=== PATIENT | female | born 1935 | race Caucasian/White ===

== ENCOUNTER 2017-07-08 15:32 | Inpatient (IN) | payer OTHER, MEDICARE ==
[2017-07-08] MEDS ORDERED: PHARMACY CONSULT - VANCOMYCIN XX SCH (16:00)
[2017-07-08] MEDS ORDERED: VANCOMYCIN 1 GM PREMIX (ADDVANTAGE) 250 ML IV NR (17:00)
[2017-07-08 17:27] LABS: BASOPHILS # (AUTO) 0.2 X10^3/uL (0.0-0.1); BASOPHILS % (AUTO) 1.2 % (0.2-1.0); EOSINOPHILS # (AUTO) 0.6 x10^3/uL (0.0-0.2); EOSINOPHILS % (AUTO) 4.7 % (0.9-2.9); HEMATOCRIT 33.7 % (36.0-47.0); HEMOGLOBIN 11.1 g/dL (12.0-16.0); LYMPHOCYTES # (AUTO) 1.5 X10^3/uL (1.3-2.9); LYMPHOCYTES % (AUTO) 11.7 % (21.0-51.0); MEAN CORPUSCULAR HEMOGLOBIN 29.8 pg (27.0-34.0); MEAN CORPUSCULAR HGB CONC 32.8 g/dL (33.0-35.0); MEAN CORPUSCULAR VOLUME 90.7 fL (80.0-100.0); MEAN PLATELET VOLUME 7.3 fL (7.4-11.0); MONOCYTES % (AUTO) 7.4 % (0.0-13.0); NEUTROPHILS # (AUTO) 9.8 x10^3/uL (2.2-4.8); PLATELET COUNT 351 X10^3/uL (150.0-450.0); RED BLOOD COUNT 3.71 X10^6/uL (3.5-5.4); RED CELL DISTRIBUTION WIDTH 14.4 % (11.6-16.5); WHITE BLOOD COUNT 13.1 X10^3/uL (3.6-10.0)
--- NOTE | 2017-07-08 17:34 | RAD ---
CHEST RADIOGRAPHS PA AND LATERAL VIEWS CLINICAL HISTORY: 82-year-old female with diabetic ulcer to the left foot. COMPARISON: Chest radiograph 01/31/2016. FINDINGS: The cardiopericardial silhouette is stably enlarged. There is no focal consolidation, pleu ral effusion or pneumothorax. The lungs are well inflated. Pulmonary vascularity is normal. Imaged os seous structures are intact. Soft tissues are unremarkable. IMPRESSION: No acute cardiopulmonary process. Reported By:
[2017-07-08 17:41] LABS: ALANINE AMINOTRANSFERASE 17 Units/L (12-78); ALKALINE PHOSPHATASE 107 Units/L (46-116); ASPARTATE AMINO TRANSFERASE 20 Units/L (15-37); BLOOD UREA NITROGEN 31 mg/dL (7-18); CALCIUM 8.8 mg/dL (8.5-10.1); CARBON DIOXIDE 29.1 mmol/L (21-32); CHLORIDE 104 mmol/L (98-107); COR CA(FOR HYPOALB) 9.6 mg/dL (8.5-10.1); SODIUM 140 mmol/L (136-145); TOTAL PROTEIN 7.1 g/dL (6.4-8.2); eGFR BLACK RACES 37 (>60); eGFR NON BLACK RACES 31 (>60)
[2017-07-08] MEDS ORDERED: NS 1/2 1000 ML IV 1,000 ML IV ONE (18:02)
[2017-07-08 18:04] VITALS: BMI 25.6
[2017-07-08] MEDS: NS 1/2 1000 ML IV 1,000 ML IV SCH (18:50)
[2017-07-08 18:59] LABS: ERYTHROCYTE SEDIMENTATION RATE 96 MM/HOUR (0-20)
[2017-07-08] MEDS: NORCO 5/325 MG TAB PO PRN (21:33)
[2017-07-08] MEDS: NYSTATIN POWDER TOP SCH ×2 (22:13→22:16)
[2017-07-08] MEDS ORDERED: NORCO 5/325 MG TAB PO ONE (23:34)
[2017-07-09] MEDS: NORCO 5/325 MG TAB PO PRN (05:10)
[2017-07-09 05:51] LABS: BASOPHILS # (AUTO) 0.1 X10^3/uL (0.0-0.1); BASOPHILS % (AUTO) 0.8 % (0.2-1.0); EOSINOPHILS # (AUTO) 0.5 x10^3/uL (0.0-0.2); EOSINOPHILS % (AUTO) 5.1 % (0.9-2.9); HEMATOCRIT 30.3 % (36.0-47.0); HEMOGLOBIN 10.3 g/dL (12.0-16.0); LYMPHOCYTES # (AUTO) 0.8 X10^3/uL (1.3-2.9); LYMPHOCYTES % (AUTO) 8.6 % (21.0-51.0); MEAN CORPUSCULAR HEMOGLOBIN 30.9 pg (27.0-34.0); MEAN CORPUSCULAR HGB CONC 33.9 g/dL (33.0-35.0); MEAN CORPUSCULAR VOLUME 91.1 fL (80.0-100.0); MEAN PLATELET VOLUME 7.7 fL (7.4-11.0); MONOCYTES # (AUTO) 0.7 x10^3/uL (0.3-0.8); NEUTROPHILS # (AUTO) 7.5 x10^3/uL (2.2-4.8); NEUTROPHILS % (AUTO) 78.5 % (42.0-75.0); PLATELET COUNT 295 X10^3/uL (150.0-450.0); RED BLOOD COUNT 3.32 X10^6/uL (3.5-5.4); RED CELL DISTRIBUTION WIDTH 14.5 % (11.6-16.5); WHITE BLOOD COUNT 9.5 X10^3/uL (3.6-10.0)
[2017-07-09 06:13] LABS: ALBUMIN 2.6 g/dL (3.4-5.0); CALCIUM 8.4 mg/dL (8.5-10.1); CARBON DIOXIDE 27.6 mmol/L (21-32); COR CA(FOR HYPOALB) 9.5 mg/dL (8.5-10.1); CREATININE 1.72 mg/dL (0.55-1.02); TOTAL PROTEIN 6.2 g/dL (6.4-8.2)
[2017-07-09] MEDS ORDERED: PERCOCET TAB 5/325 MG PO ONE (08:15)
--- NOTE | 2017-07-09 08:24 | DR.UPDATE ---
H&P Update History and Physical Update: WAS SEEN IN THE OFFICE ON 07/08/17. A H&P WAS COMPLETED PRIOR TO ADMISSION. PATIENT HAS BEEN SEEN AND EXAMINED WITH NO CHANGES TO H&P. Changes noted: NO Yes with the following:
[2017-07-09] MEDS: NYSTATIN POWDER TOP SCH ×2 (08:48→21:01)
[2017-07-09] MEDS ORDERED: PANTOPRAZOLE SODIUM 40 MG PO SCH (10:30)
[2017-07-09] MEDS ORDERED: PATIENT'S HOME MEDICATION (Clopidogrel Bisulfate [Plavix] 75 MG) PO SCH (10:30)
[2017-07-09] MEDS ORDERED: PATIENT'S HOME MEDICATION (Cholecalciferol (Vitamin D3) [Vitamin D3] 1 TAB) PO SCH (10:30)
[2017-07-09 10:31] LABS: BILIRUBIN,URINE NEGATIVE (NEGATIVE); BLOOD/HEMOGLOBIN,URINE 1+ (NEGATIVE); GLUCOSE, URINE NEGATIVE (NEGATIVE); KETONES,URINE NEGATIVE (NEGATIVE); LEUKOCYTE ESTERASE ,URINE 3+ (NEGATIVE); NITRITES,URINE NEGATIVE (NEGATIVE); PROTEIN,URINE 2+ (NEGATIVE); UROBILINOGEN,URINE NORMAL (NORMAL)
[2017-07-09 10:42] LABS: APPEARANCE,URINE SLIGHTLY HAZY (CLEAR); COLOR,URINE YELLOW (YELLOW)
[2017-07-09 10:43] LABS: AMORPHOUS SEDIMENT,UR TRACE /HPF (NEGATIVE); BACTERIA,URINE TRACE /HPF (NEGATIVE); MUCUS,URINE FEW /HPF (NEGATIVE); SQUAMOUS EPITHELIAL CELL,UR FEW /HPF (NEGATIVE)
[2017-07-09] MEDS: ZOFRAN INJ 4 MG VIAL IVP PRN (11:31)
[2017-07-09] MEDS: EFFEXOR XR 75 MG CAP PO SCH (14:01)
[2017-07-09] MEDS: COREG TAB 3.125 MG PO SCH ×2 (14:01→20:56)
[2017-07-09] MEDS: NORCO 10/325 TAB PO PRN (14:01)
[2017-07-09] MEDS: NEURONTIN CAP 300 MG PO SCH ×2 (14:01→20:56)
[2017-07-09] MEDS ORDERED: NS 1/2 1000 ML IV 1,000 ML IV ONE (17:59)
[2017-07-09] MEDS: NS 1/2 1000 ML IV 1,000 ML IV SCH (18:10)
[2017-07-09] MEDS: NEURONTIN CAP 400 MG PO SCH (20:56)
[2017-07-09] MEDS: LANTUS SC SCH (20:56)
[2017-07-09] MEDS: VANCOMYCIN HCL 500 MG VIAL 500 MG, VANCOMYCIN HCL 1 GM VIAL 1 GM in D5W 250 ML IV 250 ML IV SCH (20:56)
[2017-07-09] MEDS: ZOCOR TAB 40 MG PO SCH (20:56)
[2017-07-10 05:59] LABS: BASOPHILS # (AUTO) 0.1 X10^3/uL (0.0-0.1); BASOPHILS % (AUTO) 0.9 % (0.2-1.0); EOSINOPHILS # (AUTO) 0.5 x10^3/uL (0.0-0.2); EOSINOPHILS % (AUTO) 7.7 % (0.9-2.9); HEMATOCRIT 27.4 % (36.0-47.0); HEMOGLOBIN 9.3 g/dL (12.0-16.0); LYMPHOCYTES # (AUTO) 1.1 X10^3/uL (1.3-2.9); LYMPHOCYTES % (AUTO) 15.9 % (21.0-51.0); MEAN CORPUSCULAR HEMOGLOBIN 31.1 pg (27.0-34.0); MEAN CORPUSCULAR HGB CONC 34.1 g/dL (33.0-35.0); MEAN CORPUSCULAR VOLUME 91.3 fL (80.0-100.0); MEAN PLATELET VOLUME 8.1 fL (7.4-11.0); MONOCYTES # (AUTO) 0.7 x10^3/uL (0.3-0.8); MONOCYTES % (AUTO) 10.6 % (0.0-13.0); NEUTROPHILS # (AUTO) 4.5 x10^3/uL (2.2-4.8); NEUTROPHILS % (AUTO) 64.9 % (42.0-75.0); PLATELET COUNT 265 X10^3/uL (150.0-450.0); RED CELL DISTRIBUTION WIDTH 14.3 % (11.6-16.5); WHITE BLOOD COUNT 6.9 X10^3/uL (3.6-10.0)
[2017-07-10 06:23] LABS: ALBUMIN 2.3 g/dL (3.4-5.0); CARBON DIOXIDE 29.1 mmol/L (21-32); COR CA(FOR HYPOALB) 9.4 mg/dL (8.5-10.1); CREATININE 2.04 mg/dL (0.55-1.02); TOTAL PROTEIN 5.7 g/dL (6.4-8.2)
[2017-07-10] MEDS: COREG TAB 3.125 MG PO SCH ×2 (08:37→20:59)
[2017-07-10] MEDS: EFFEXOR XR 75 MG CAP PO SCH (08:37)
[2017-07-10] MEDS: NEURONTIN CAP 300 MG PO SCH ×2 (08:38→20:58)
[2017-07-10] MEDS: PROTONIX TAB 40 MG PO SCH (08:38)
[2017-07-10] MEDS: NYSTATIN POWDER TOP SCH ×2 (08:38→21:58)
[2017-07-10] MEDS: VITAMIN D3 PO SCH (08:38)
[2017-07-10] MEDS: PLAVIX PO SCH (08:38)
[2017-07-10] MEDS ORDERED: LANTUS SC SCH (09:00)
[2017-07-10] MEDS: HumuLIN R SC PRN ×3 (11:56→22:00)
[2017-07-10] MEDS: GENTAMICIN TOPICAL OINT TOP SCH ×2 (15:00→21:58)
[2017-07-10] MEDS ORDERED: NS 1/2 1000 ML IV 1,000 ML IV ONE (16:03)
[2017-07-10] MEDS: NS 1/2 1000 ML IV 1,000 ML IV SCH (16:08)
[2017-07-10] MEDS: ZOCOR TAB 40 MG PO SCH (20:59)
[2017-07-10] MEDS: NEURONTIN CAP 400 MG PO SCH (20:59)
[2017-07-10] MEDS: LANTUS SC SCH (21:03)
[2017-07-10] MEDS: VANCOMYCIN HCL 500 MG VIAL 500 MG, VANCOMYCIN HCL 1 GM VIAL 1 GM in D5W 250 ML IV 250 ML IV SCH (21:15)
[2017-07-11] MEDS: HumuLIN R SC PRN ×3 (05:40→17:34)
[2017-07-11] MEDS ORDERED: NS 1/2 1000 ML IV 1,000 ML IV ONE ×2 (06:13→16:43)
[2017-07-11 06:18] LABS: BASOPHILS # (AUTO) 0.1 X10^3/uL (0.0-0.1); BASOPHILS % (AUTO) 0.9 % (0.2-1.0); EOSINOPHILS # (AUTO) 0.5 x10^3/uL (0.0-0.2); EOSINOPHILS % (AUTO) 5.7 % (0.9-2.9); HEMATOCRIT 28.3 % (36.0-47.0); HEMOGLOBIN 9.7 g/dL (12.0-16.0); LYMPHOCYTES # (AUTO) 1.2 X10^3/uL (1.3-2.9); MEAN CORPUSCULAR HEMOGLOBIN 31.2 pg (27.0-34.0); MEAN CORPUSCULAR HGB CONC 34.2 g/dL (33.0-35.0); MEAN CORPUSCULAR VOLUME 91.4 fL (80.0-100.0); MEAN PLATELET VOLUME 8.2 fL (7.4-11.0); MONOCYTES # (AUTO) 0.8 x10^3/uL (0.3-0.8); MONOCYTES % (AUTO) 8.7 % (0.0-13.0); NEUTROPHILS # (AUTO) 6.8 x10^3/uL (2.2-4.8); NEUTROPHILS % (AUTO) 71.7 % (42.0-75.0); PLATELET COUNT 271 X10^3/uL (150.0-450.0); RED CELL DISTRIBUTION WIDTH 14.3 % (11.6-16.5); WHITE BLOOD COUNT 9.5 X10^3/uL (3.6-10.0)
[2017-07-11 06:34] LABS: ALBUMIN 2.3 g/dL (3.4-5.0); CALCIUM 8.3 mg/dL (8.5-10.1); CARBON DIOXIDE 26.6 mmol/L (21-32); COR CA(FOR HYPOALB) 9.7 mg/dL (8.5-10.1); CREATININE 1.57 mg/dL (0.55-1.02); TOTAL PROTEIN 5.7 g/dL (6.4-8.2)
[2017-07-11] MEDS: COREG TAB 3.125 MG PO SCH ×2 (09:28→20:25)
[2017-07-11] MEDS: NEURONTIN CAP 300 MG PO SCH ×2 (09:28→20:26)
[2017-07-11] MEDS: EFFEXOR XR 75 MG CAP PO SCH (09:28)
[2017-07-11] MEDS: GENTAMICIN TOPICAL OINT TOP SCH ×2 (09:28→20:26)
[2017-07-11] MEDS: NYSTATIN POWDER TOP SCH ×2 (09:28→23:56)
[2017-07-11] MEDS: PLAVIX PO SCH (09:28)
[2017-07-11] MEDS: PROTONIX TAB 40 MG PO SCH (09:29)
[2017-07-11] MEDS: VITAMIN D3 PO SCH (09:29)
[2017-07-11] MEDS ORDERED: PHARMACY CONSULT - DOSE _____ XX SCH (15:00)
[2017-07-11] MEDS: LEVAQUIN PREMIX IV 750 MG 750 MG/150 ML BAG IV SCH (16:48)
[2017-07-11] MEDS: NS 1/2 1000 ML IV 1,000 ML IV SCH (16:49)
[2017-07-11] MEDS: COLACE CAP 100 MG PO SCH (20:26)
[2017-07-11] MEDS: LANTUS SC SCH (20:26)
[2017-07-11] MEDS: NEURONTIN CAP 400 MG PO SCH (20:26)
[2017-07-11] MEDS: ZOCOR TAB 40 MG PO SCH (23:56)
[2017-07-11] MEDS: NORCO 10/325 TAB PO PRN (23:56)
[2017-07-12] MEDS: ROBITUSSIN DM PO PRN ×3 (01:48→22:18)
[2017-07-12 05:46] LABS: BASOPHILS # (AUTO) 0.1 X10^3/uL (0.0-0.1); BASOPHILS % (AUTO) 0.8 % (0.2-1.0); EOSINOPHILS # (AUTO) 0.5 x10^3/uL (0.0-0.2); EOSINOPHILS % (AUTO) 5.5 % (0.9-2.9); LYMPHOCYTES # (AUTO) 1.1 X10^3/uL (1.3-2.9); LYMPHOCYTES % (AUTO) 12.5 % (21.0-51.0); MEAN CORPUSCULAR HEMOGLOBIN 30.7 pg (27.0-34.0); MEAN CORPUSCULAR HGB CONC 33.6 g/dL (33.0-35.0); MEAN CORPUSCULAR VOLUME 91.4 fL (80.0-100.0); MONOCYTES # (AUTO) 0.8 x10^3/uL (0.3-0.8); MONOCYTES % (AUTO) 9.1 % (0.0-13.0); NEUTROPHILS # (AUTO) 6.2 x10^3/uL (2.2-4.8); NEUTROPHILS % (AUTO) 72.1 % (42.0-75.0); PLATELET COUNT 246 X10^3/uL (150.0-450.0); RED BLOOD COUNT 2.95 X10^6/uL (3.5-5.4); RED CELL DISTRIBUTION WIDTH 14.2 % (11.6-16.5); WHITE BLOOD COUNT 8.6 X10^3/uL (3.6-10.0)
[2017-07-12] MEDS: HumuLIN R SC PRN ×3 (05:46→16:46)
[2017-07-12 05:57] LABS: ALBUMIN 2.2 g/dL (3.4-5.0); CALCIUM 8.2 mg/dL (8.5-10.1); CARBON DIOXIDE 28.6 mmol/L (21-32); COR CA(FOR HYPOALB) 9.6 mg/dL (8.5-10.1); CREATININE 1.53 mg/dL (0.55-1.02); TOTAL PROTEIN 5.7 g/dL (6.4-8.2)
[2017-07-12] MEDS: GENTAMICIN TOPICAL OINT TOP SCH ×2 (09:09→22:42)
[2017-07-12] MEDS: NYSTATIN POWDER TOP SCH ×2 (09:10→22:43)
[2017-07-12] MEDS: EFFEXOR XR 75 MG CAP PO SCH (09:10)
[2017-07-12] MEDS: COREG TAB 3.125 MG PO SCH ×2 (09:15→22:17)
[2017-07-12] MEDS: PROTONIX TAB 40 MG PO SCH (09:15)
[2017-07-12] MEDS: PLAVIX PO SCH (09:15)
[2017-07-12] MEDS: NEURONTIN CAP 300 MG PO SCH ×2 (09:15→22:17)
[2017-07-12] MEDS: VITAMIN D3 PO SCH (09:16)
[2017-07-12] MEDS: NS 1/2 1000 ML IV 1,000 ML IV SCH (09:17)
[2017-07-12] MEDS ORDERED: NS 1/2 1000 ML IV 1,000 ML IV ONE (09:33)
[2017-07-12] MEDS: ALBUMIN HUMAN 25%- 100ML 200 ML IV SCH (11:26)
[2017-07-12] MEDS: NORCO 10/325 TAB PO PRN ×2 (14:15→22:16)
[2017-07-12] MEDS: MILK OF MAGNESIA PO SCH (16:47)
[2017-07-12] MEDS: COLACE CAP 100 MG PO SCH (22:17)
[2017-07-12] MEDS: NEURONTIN CAP 400 MG PO SCH (22:17)
[2017-07-12] MEDS: ZOCOR TAB 40 MG PO SCH (22:42)
[2017-07-12] MEDS ORDERED: NS 1000 ML 1,000 ML ONE (23:10)
[2017-07-13] MEDS: LANTUS SC SCH ×2 (00:16→21:58)
[2017-07-13] MEDS: NS 1/2 1000 ML IV 1,000 ML IV SCH ×3 (00:16→16:37)
[2017-07-13] MEDS: MILK OF MAGNESIA PO SCH ×2 (00:17→21:58)
[2017-07-13 06:47] LABS: BASOPHILS # (AUTO) 0.1 X10^3/uL (0.0-0.1); BASOPHILS % (AUTO) 0.6 % (0.2-1.0); EOSINOPHILS # (AUTO) 0.6 x10^3/uL (0.0-0.2); HEMATOCRIT 26.6 % (36.0-47.0); HEMOGLOBIN 8.9 g/dL (12.0-16.0); LYMPHOCYTES % (AUTO) 9.8 % (21.0-51.0); MEAN CORPUSCULAR HEMOGLOBIN 30.7 pg (27.0-34.0); MEAN CORPUSCULAR HGB CONC 33.5 g/dL (33.0-35.0); MEAN CORPUSCULAR VOLUME 91.6 fL (80.0-100.0); MEAN PLATELET VOLUME 8.2 fL (7.4-11.0); MONOCYTES % (AUTO) 9.6 % (0.0-13.0); NEUTROPHILS # (AUTO) 7.4 x10^3/uL (2.2-4.8); PLATELET COUNT 262 X10^3/uL (150.0-450.0); RED BLOOD COUNT 2.91 X10^6/uL (3.5-5.4); RED CELL DISTRIBUTION WIDTH 14.5 % (11.6-16.5); WHITE BLOOD COUNT 9.9 X10^3/uL (3.6-10.0)
[2017-07-13 07:05] LABS: CALCIUM 8.7 mg/dL (8.5-10.1); CARBON DIOXIDE 27.7 mmol/L (21-32); COR CA(FOR HYPOALB) 9.5 mg/dL (8.5-10.1); CREATININE 1.54 mg/dL (0.55-1.02); TOTAL PROTEIN 6.3 g/dL (6.4-8.2)
--- NOTE | 2017-07-13 08:56 | VAS ---
HISTORY: Wounds to bilateral feet, diabetes, hypertension Study: Bilateral KRYSTA is with PVR tracings Comparison: No priors Technique: Segmental blood pressures were obtained bilaterally with PVR tracings. Findings: ABIs are as follows: On the right 0.98 and on the left 0.94. Both values are normal. There is some br oadening of the PVR tracing involving the left dorsalis pedis. This may indicate some mild arterial i nsufficiency. IMPRESSION: Normal ABIs bilaterally. PVR tracings indicate mild arterial insufficiency at the level of the dorsalis pedis artery on the le ft. Reported By:
[2017-07-13] MEDS: ALBUMIN HUMAN 25%- 100ML 200 ML IV SCH (10:17)
[2017-07-13] MEDS: COREG TAB 3.125 MG PO SCH ×2 (10:18→21:55)
[2017-07-13] MEDS: PROTONIX TAB 40 MG PO SCH (10:18)
[2017-07-13] MEDS: NEURONTIN CAP 300 MG PO SCH ×2 (10:18→21:55)
[2017-07-13] MEDS: PLAVIX PO SCH (10:19)
[2017-07-13] MEDS: EFFEXOR XR 75 MG CAP PO SCH (10:19)
[2017-07-13] MEDS: VITAMIN D3 PO SCH (10:20)
[2017-07-13] MEDS: GENTAMICIN TOPICAL OINT TOP SCH ×2 (10:21→22:00)
[2017-07-13] MEDS: NYSTATIN POWDER TOP SCH ×2 (10:21→22:00)
[2017-07-13] MEDS ORDERED: NS 1/2 1000 ML IV 1,000 ML IV ONE ×2 (10:23→23:38)
[2017-07-13] MEDS: HumuLIN R SC PRN ×2 (11:19→17:22)
[2017-07-13] MEDS: NORCO 10/325 TAB PO PRN ×2 (12:43→22:04)
[2017-07-13] MEDS: LEVAQUIN PREMIX IV 750 MG 750 MG/150 ML BAG IV SCH (15:01)
[2017-07-13] MEDS: ZOCOR TAB 40 MG PO SCH (21:55)
[2017-07-13] MEDS: ROBITUSSIN DM PO PRN (21:55)
[2017-07-13] MEDS: NEURONTIN CAP 400 MG PO SCH (21:55)
[2017-07-13] MEDS: COLACE CAP 100 MG PO SCH (21:55)
--- NOTE | 2017-07-14 00:19 | PCM.PROG ---
Progress Note - Progress Note for Day of Date: 07/10/17 - Subjective Subjective: WAS ADMITTED FOR A DIABETIC ULCER TO THE LEFT FOOT AND THE RIGHT ANKLE. TODAY, SHE IS ALERT AND ORIENTED, LYING IN BED ON MORNING ROUNDS. SHE IS NOTED WITH COMPLAINTS OF PAIN TO THE LEFT FOOT. ON EXAMINATION, RIGHT GREAT TOE IS NOTED WITH A DIABETIC ULCER. WOUND IS NOTED WITH MINIMAL DRAINAGE AT THIS TIME. A CULTURE WAS COLLECTED ON ADMISSION AND SENT TO LAB. RESULTS OF CULTURE ARE PENDING. RABIA ALSO CONTINUES WITH A NON-PRODUCTIVE COUGH AND WEAKNESS. HER VITALS SIGNS THIS MORNING ARE 98.1-50-18-95%-102/44. LABS WERE OBTAINED THIS MORNING. ABNORMAL LAB VALUES INCLUDE THE FOLLOWING: RBC 3.32, HGB 10.3, HCT 30.3, BUN 33, CREATININE 1.72, GFR 30, GLUCOSE 122, CALCIUM 8.4, TOTAL PROTEIN 6.2, ALBUMIN 2.6. A URINALYSIS WAS COLLECTED THIS MORNING AND REPORTED WBC 5-7, RBC 2-4, BACTERIA TRACE, LEUKOCYTES 3+, PROTEIN 2+. YESTERDAY'S CHEST XRAY REPORTED NO ACUTE CARDIOPULMONARY PROCESS. EKG REPORTED SINUS RHYTHM WITH HR 90. TODAY, WE WILL ORDER A BILATERAL ARTERIAL ULTRASOUND. WE WILL ORDER A ONE TIME DOSE OF PERCOCET 5/325 PO UNTIL WE GET A CONFIRMED LIST OF PATIENTS MEDICATIONS. WE CONFIRMED LIST IS AVAILABLE, WE WILL REVIEW MEDICATIONS AND RESTART APPROPRIATE. OTHERWISE, WE WILL CONTINUE WITH CURRENT PLAN OF CARE. WE PLAN TO RECHECK AM LABS AND CONTINUE TO MONITOR PATINET. - Past Medical Family Social History Past Med/Fam/Surg Hx: No changes since H&P Allergies: Allergies ezetimibe [From Zetia] Allergy (Verified 07/08/17 18:25) Influenza Virus Vaccines Allergy (Verified 07/08/17 18:25) Penicillins Allergy (Verified 07/08/17 18:25) pneumococcal vaccine Allergy (Verified 07/08/17 18:25) ropinirole [From Requip] Allergy (Verified 07/08/17 18:25) - Review of Systems ROS: No change since H&P - Vital Signs and I&O's Vital Signs: Temperature 97.7 F Pulse Rate [Right Brachial] 86 Pulse Rate [Left Brachial] 50 Pulse Rate 51 Respiratory Rate 18 Blood Pressure [Left Arm] 132/57 Blood Pressure [Right Arm] 122/61 Blood Pressure 168/70 O2 Sat by Pulse Oximetry 93 Intake and Output: Intake & Output 07/11/17 07/12/17 07/13/17 07/14/17 11:59 11:59 11:59 11:59 Intake Total 1939 1620 3660 2198 Output Total 1200 Balance 1939 1620 2460 2198 - Physical Exam Oriented: Normal Eyes: Normal Ear: Normal Nose: Normal Throat: Normal Respiratory: Normal Cardiovascular: Normal : Normal Auscultation: Bowel Sounds: Normal Palpation: Normal Tenderness: Normal Skin: Red, Tender (LEFT FOOT, RIGHT ANKLE ), Wound Musculoskeletal: Normal Psychiatric: Normal Mood Description: Calm Affect: Normal Speech Pattern: Clear, Appropriate - Laboratory and Diagnostics Result Diagrams: 07/13/17 05:35 07/13/17 05:35 Labs: 07/08/17 18:12 Foot - Left Gram Stain - Final 07/08/17 18:12 Foot - Left Wound Culture - Final Proteus Mirabilis Staphylococcus Aureus Stenotrophomonas Maltophilia 07/08/17 17:17 Blood Blood Culture - Preliminary 07/08/17 17:12 Blood Blood Culture - Preliminary 07/09/17 10:20 Urine,Clean Catch Urine Culture - Final Laboratory WBC 9.9 X10^3/uL (3.6-10.0) 07/13/17 05:35 RBC 2.91 X10^6/uL (3.5-5.4) L 07/13/17 05:35 Hgb 8.9 g/dL (12.0-16.0) L 07/13/17 05:35 Hct 26.6 % (36.0-47.0) L 07/13/17 05:35 MCV 91.6 fL (80.0-100.0) 07/13/17 05:35 MCH 30.7 pg (27.0-34.0) 07/13/17 05:35 MCHC 33.5 g/dL (33.0-35.0) 07/13/17 05:35 RDW 14.5 % (11.6-16.5) 07/13/17 05:35 Plt Count 262 X10^3/uL (150.0-450.0) 07/13/17 05:35 MPV 8.2 fL (7.4-11.0) 07/13/17 05:35 Neut % 74.0 % (42.0-75.0) 07/13/17 05:35 Lymph % 9.8 % (21.0-51.0) L 07/13/17 05:35 [place] % 9.6 % (0.0-13.0) 07/13/17 05:35 Eos % 6.0 % (0.9-2.9) H 07/13/17 05:35 Baso % 0.6 % (0.2-1.0) 07/13/17 05:35 Neut # 7.4 x10^3/uL (2.2-4.8) H 07/13/17 05:35 Lymph # 1.0 X10^3/uL (1.3-2.9) L 07/13/17 05:35 [place] # 1.0 x10^3/uL (0.3-0.8) H 07/13/17 05:35 Eos # 0.6 x10^3/uL (0.0-0.2) H 07/13/17 05:35 Baso # 0.1 X10^3/uL (0.0-0.1) 07/13/17 05:35 Absolute Nucleated RBC 0.0 /100WBC 07/13/17 05:35 ESR 77 MM/HOUR (0-20) H 07/12/17 05:05 INR Target Range - 07/08/17 17:12 INR 1.07 (0.8-1.3) 07/08/17 17:12 Sodium 139 mmol/L (136-145) 07/13/17 05:35 Corrected Sodium 141 mmol/L (136-145) 07/13/17 05:35 Potassium 5.3 mmol/L (3.5-5.1) H 07/13/17 05:35 Chloride 106 mmol/L (98-107) 07/13/17 05:35 Carbon Dioxide 27.7 mmol/L (21-32) 07/13/17 05:35 BUN 25 mg/dL (7-18) H 07/13/17 05:35 Creatinine 1.54 mg/dL (0.55-1.02) H 07/13/17 05:35 Est GFR (MDRD) Af Amer 41 (>60) L 07/13/17 05:35 Est GFR (MDRD) Non-Af 34 (>60) L 07/13/17 05:35 Glucose 195 mg/dL (65-99) H 07/13/17 05:35 POC Glucose (mg/dL) 177 mg/dL (65-99) H 07/13/17 21:59 Calcium 8.7 mg/dL (8.5-10.1) 07/13/17 05:35 Corrected Calcium 9.5 mg/dL (8.5-10.1) 07/13/17 05:35 Total Bilirubin 0.30 mg/dL (0.2-1.0) 07/13/17 05:35 AST 15 Units/L (15-37) 07/13/17 05:35 ALT 15 Units/L (12-78) 07/13/17 05:35 Alkaline Phosphatase 73 Units/L (46-116) 07/13/17 05:35 C-Reactive Protein 33.00 mg/L (0-3.0) H 07/12/17 05:05 Total Protein 6.3 g/dL (6.4-8.2) L 07/13/17 05:35 Albumin 3.0 g/dL (3.4-5.0) L 07/13/17 05:35 Globulin 3.3 g/dL (2.5-4.5) 07/13/17 05:35 Albumin/Globulin Ratio 0.9 Ratio (1.1-2.1) L 07/13/17 05:35 Specimen Type Clean catch urine 07/09/17 10:20 Urine Color Yellow (YELLOW) 07/09/17 10:20 Urine Appearance Slightly hazy (CLEAR) 07/09/17 10:20 Urine pH 5.0 (5.0 - 8.0) 07/09/17 10:20 Ur Specific [place] 1.020 (1.000-1.030) 07/09/17 10:20 Urine Protein 2+ (NEGATIVE) 07/09/17 10:20 Urine Glucose (UA) Negative (NEGATIVE) 07/09/17 10:20 Urine Ketones Negative (NEGATIVE) 07/09/17 10:20 Urine Occult Blood 1+ (NEGATIVE) 07/09/17 10:20 Urine Nitrite Negative (NEGATIVE) 07/09/17 10:20 Urine Bilirubin Negative (NEGATIVE) 07/09/17 10:20 Urine Urobilinogen Normal (NORMAL) 07/09/17 10:20 Ur Leukocyte Esterase 3+ (NEGATIVE) 07/09/17 10:20 Urine RBC 2-4 /HPF (NEGATIVE) 07/09/17 10:20 Urine WBC 5-7 /HPF (NEGATIVE) 07/09/17 10:20 Ur Squamous Epith Cells Few /HPF (NEGATIVE) 07/09/17 10:20 Amorphous Sediment Trace /HPF (NEGATIVE) 07/09/17 10:20 Urine Bacteria Trace /HPF (NEGATIVE) 07/09/17 10:20 Urine Mucus Few /HPF (NEGATIVE) 07/09/17 10:20 Ur Culture Indicated? Yes/culture set up 07/09/17 10:20 - Plan (1) Diabetic ulcer of left great toe Status: Acute Plan: VANCOMYCIN IV DAILY, WOUND CARE, BILATERAL ARTERIAL DOPPLER, CONTINUE TO MONITOR
--- NOTE | 2017-07-14 00:32 | PCM.PROG ---
Progress Note - Progress Note for Day of Date: 07/11/17 - Subjective Subjective: WAS ADMITTED FOR A DIABETIC ULCER TO THE LEFT FOOT AND THE RIGHT ANKLE. TODAY, SHE IS ALERT AND ORIENTED, LYING IN BED ON MORNING ROUNDS. SHE CONTINUES WITH COMPLAINTS OF PAIN TO THE LEFT FOOT. ON EXAMINATION, RIGHT GREAT TOE CONTINUES WITH A DIABETIC ULCER WITH MINIMAL DRAINAGE. SHE ALSO CONTINUES WITH WEAKNESS AND SHORTNESS OF BREATH. HER VITALS SIGNS THIS MORNING ARE 98.5-55-20-96%-122/51. LABS WERE OBTAINED THIS MORNING. ABNORMAL LAB VALUES INCLUDE THE FOLLOWING: RBC 3.00, HGB 9.3, HCT 27.4, POTASSIUM 5.2, BUN 33, CREATININE 2.04, GFR 25, GLUCOSE 322, CALCIUM 8.0, TOTAL PROTEIN 5.7, ALBUMIN 2.3. WOUND GRAM STAIN REPORTS MODERATE GROWTH OF GRAM POSITIVE COCCI AND FEW NEGATIVE RODS AND FEW NEGATIVE COCCI. PRELIMINARY BLOOD CULTURES REPORT NO GROWTH. TODAY, WE WILL CONTINUE WITH CURRENT PLAN OF CARE AND AWAIT FINAL RESULTS OF WOUND CULTURE. WE PLAN TO RECHECK AM LABS AND CONTINUE TO MONITOR PATIENT. TODAY, WE WILL START HUMULIN R SLIDING SCALE. OTHERWISE, WE WILL CONTINUE WITH CURRENT PLAN OF CARE - Past Medical Family Social History Past Med/Fam/Surg Hx: No changes since H&P Allergies: Allergies ezetimibe [From Zetia] Allergy (Verified 07/08/17 18:25) Influenza Virus Vaccines Allergy (Verified 07/08/17 18:25) Penicillins Allergy (Verified 07/08/17 18:25) pneumococcal vaccine Allergy (Verified 07/08/17 18:25) ropinirole [From Requip] Allergy (Verified 07/08/17 18:25) - Review of Systems ROS: No change since H&P - Vital Signs and I&O's Vital Signs: Temperature 97.7 F Pulse Rate [Right Brachial] 86 Pulse Rate [Left Brachial] 50 Pulse Rate 51 Respiratory Rate 18 Blood Pressure [Left Arm] 132/57 Blood Pressure [Right Arm] 122/61 Blood Pressure 168/70 O2 Sat by Pulse Oximetry 93 Intake and Output: Intake & Output 07/11/17 07/12/17 07/13/17 07/14/17 11:59 11:59 11:59 11:59 Intake Total 1940 1620 3660 2198 Output Total 1200 Balance 1940 1620 2460 2198 - Physical Exam Oriented: Normal Eyes: Normal Ear: Normal Nose: Normal Throat: Normal Respiratory: Normal Cardiovascular: Normal : Normal Auscultation: Bowel Sounds: Normal Palpation: Normal Tenderness: Normal Skin: Red, Tender (LEFT FOOT, RIGHT ANKLE ), Wound Musculoskeletal: Normal Psychiatric: Normal Mood Description: Calm Affect: Normal Speech Pattern: Clear, Appropriate - Laboratory and Diagnostics Result Diagrams: 07/13/17 05:35 07/13/17 05:35 Labs: 07/08/17 18:12 Foot - Left Gram Stain - Final 07/08/17 18:12 Foot - Left Wound Culture - Final Proteus Mirabilis Staphylococcus Aureus Stenotrophomonas Maltophilia 07/08/17 17:17 Blood Blood Culture - Preliminary 07/08/17 17:12 Blood Blood Culture - Preliminary 07/09/17 10:20 Urine,Clean Catch Urine Culture - Final Laboratory WBC 9.9 X10^3/uL (3.6-10.0) 07/13/17 05:35 RBC 2.91 X10^6/uL (3.5-5.4) L 07/13/17 05:35 Hgb 8.9 g/dL (12.0-16.0) L 07/13/17 05:35 Hct 26.6 % (36.0-47.0) L 07/13/17 05:35 MCV 91.6 fL (80.0-100.0) 07/13/17 05:35 MCH 30.7 pg (27.0-34.0) 07/13/17 05:35 MCHC 33.5 g/dL (33.0-35.0) 07/13/17 05:35 RDW 14.5 % (11.6-16.5) 07/13/17 05:35 Plt Count 262 X10^3/uL (150.0-450.0) 07/13/17 05:35 MPV 8.2 fL (7.4-11.0) 07/13/17 05:35 Neut % 74.0 % (42.0-75.0) 07/13/17 05:35 Lymph % 9.8 % (21.0-51.0) L 07/13/17 05:35 [place] % 9.6 % (0.0-13.0) 07/13/17 05:35 Eos % 6.0 % (0.9-2.9) H 07/13/17 05:35 Baso % 0.6 % (0.2-1.0) 07/13/17 05:35 Neut # 7.4 x10^3/uL (2.2-4.8) H 07/13/17 05:35 Lymph # 1.0 X10^3/uL (1.3-2.9) L 07/13/17 05:35 [place] # 1.0 x10^3/uL (0.3-0.8) H 07/13/17 05:35 Eos # 0.6 x10^3/uL (0.0-0.2) H 07/13/17 05:35 Baso # 0.1 X10^3/uL (0.0-0.1) 07/13/17 05:35 Absolute Nucleated RBC 0.0 /100WBC 07/13/17 05:35 ESR 77 MM/HOUR (0-20) H 07/12/17 05:05 INR Target Range - 07/08/17 17:12 INR 1.07 (0.8-1.3) 07/08/17 17:12 Sodium 139 mmol/L (136-145) 07/13/17 05:35 Corrected Sodium 141 mmol/L (136-145) 07/13/17 05:35 Potassium 5.3 mmol/L (3.5-5.1) H 07/13/17 05:35 Chloride 106 mmol/L (98-107) 07/13/17 05:35 Carbon Dioxide 27.7 mmol/L (21-32) 07/13/17 05:35 BUN 25 mg/dL (7-18) H 07/13/17 05:35 Creatinine 1.54 mg/dL (0.55-1.02) H 07/13/17 05:35 Est GFR (MDRD) Af Amer 41 (>60) L 07/13/17 05:35 Est GFR (MDRD) Non-Af 34 (>60) L 07/13/17 05:35 Glucose 195 mg/dL (65-99) H 07/13/17 05:35 POC Glucose (mg/dL) 177 mg/dL (65-99) H 07/13/17 21:59 Calcium 8.7 mg/dL (8.5-10.1) 07/13/17 05:35 Corrected Calcium 9.5 mg/dL (8.5-10.1) 07/13/17 05:35 Total Bilirubin 0.30 mg/dL (0.2-1.0) 07/13/17 05:35 AST 15 Units/L (15-37) 07/13/17 05:35 ALT 15 Units/L (12-78) 07/13/17 05:35 Alkaline Phosphatase 73 Units/L (46-116) 07/13/17 05:35 C-Reactive Protein 33.00 mg/L (0-3.0) H 07/12/17 05:05 Total Protein 6.3 g/dL (6.4-8.2) L 07/13/17 05:35 Albumin 3.0 g/dL (3.4-5.0) L 07/13/17 05:35 Globulin 3.3 g/dL (2.5-4.5) 07/13/17 05:35 Albumin/Globulin Ratio 0.9 Ratio (1.1-2.1) L 07/13/17 05:35 Specimen Type Clean catch urine 07/09/17 10:20 Urine Color Yellow (YELLOW) 07/09/17 10:20 Urine Appearance Slightly hazy (CLEAR) 07/09/17 10:20 Urine pH 5.0 (5.0 - 8.0) 07/09/17 10:20 Ur Specific [place] 1.020 (1.000-1.030) 07/09/17 10:20 Urine Protein 2+ (NEGATIVE) 07/09/17 10:20 Urine Glucose (UA) Negative (NEGATIVE) 07/09/17 10:20 Urine Ketones Negative (NEGATIVE) 07/09/17 10:20 Urine Occult Blood 1+ (NEGATIVE) 07/09/17 10:20 Urine Nitrite Negative (NEGATIVE) 07/09/17 10:20 Urine Bilirubin Negative (NEGATIVE) 07/09/17 10:20 Urine Urobilinogen Normal (NORMAL) 07/09/17 10:20 Ur Leukocyte Esterase 3+ (NEGATIVE) 07/09/17 10:20 Urine RBC 2-4 /HPF (NEGATIVE) 07/09/17 10:20 Urine WBC 5-7 /HPF (NEGATIVE) 07/09/17 10:20 Ur Squamous Epith Cells Few /HPF (NEGATIVE) 07/09/17 10:20 Amorphous Sediment Trace /HPF (NEGATIVE) 07/09/17 10:20 Urine Bacteria Trace /HPF (NEGATIVE) 07/09/17 10:20 Urine Mucus Few /HPF (NEGATIVE) 07/09/17 10:20 Ur Culture Indicated? Yes/culture set up 07/09/17 10:20 - Plan (1) Diabetic ulcer of left great toe Status: Acute Plan: VANCOMYCIN IV DAILY, WOUND CARE, BILATERAL ARTERIAL DOPPLER, CONTINUE TO MONITOR (2) Shortness of breath Status: Acute Plan: DUONEBS PRN, CONTINUE TO MONITOR (3) Depression Status: Chronic Qualifiers: Depression Type: major depressive disorder Major depression recurrence: recurrent Active/Remission status: remission status unspecified Qualified Code(s): F33.9 - Major depressive disorder, recurrent, unspecified Plan: CONTINUE VENLAFAXINE,CONTINUE TO MONITOR (4) CAD (coronary artery disease) Status: Chronic Qualifiers: Coronary Disease-Associated Artery/Lesion type: [place] artery [place] vs. transplanted heart: [place] heart Associated angina: without angina Qualified Code(s): I25.10 - Atherosclerotic heart disease of [place] coronary artery without angina pectoris Plan: CONTINUE PLAVIX, CONTINUE TO MONITOR (5) Diabetes mellitus, type 2 Status: Chronic Qualifiers: Diabetes mellitus complication status: with hypoglycemia Diabetes mellitus complication detail: without coma Diabetes mellitus termite exterminator helper insulin use: with termite exterminator helper use Qualified Code(s): E11.649 - Type 2 diabetes mellitus with hypoglycemia without coma Plan: HUMULIN R SLIDING SCALE, LANTUS 12UNITS SC HS, MONITOR OTBS, CONTINUE TO MONITOR (6) GERD (gastroesophageal reflux disease) Status: Chronic Qualifiers: Esophagitis presence: with esophagitis Qualified Code(s): K21.0 - Gastro- esophageal reflux disease with esophagitis Plan: CONTINUE PROTONIX, CONTINUE TO MONITOR (7) Hypertension Status: Chronic Qualifiers: Hypertension type: essential hypertension Plan: CONTINUE COREG, CONTINUE TO MONITOR (8) Hyperlipidemia Status: Chronic Qualifiers: Hyperlipidemia type: mixed hyperlipidemia Qualified Code(s): E78.2 - Mixed hyperlipidemia Plan: CONTINUE ZOCOR, CONTINUE TO MONITOR
--- NOTE | 2017-07-14 01:06 | PCM.PROG ---
Progress Note - Progress Note for Day of Date: 07/11/17 - Subjective Subjective: WAS ADMITTED FOR A DIABETIC ULCER TO THE LEFT FOOT AND THE RIGHT ANKLE. TODAY, SHE IS ALERT AND ORIENTED, LYING IN BED ON MORNING ROUNDS. SHE CONTINUES WITH COMPLAINTS OF PAIN TO THE LEFT FOOT. ON EXAMINATION, RIGHT GREAT TOE CONTINUES WITH A DIABETIC ULCER WITH MINIMAL DRAINAGE. SHE ALSO CONTINUES WITH WEAKNESS AND SHORTNESS OF BREATH THAT IS IMPROVING. PHYSICAL THERAPY HAS EVALUATED AND IS WORKING WITH PATIENT. HER MOBILITY IS IMPARED BECAUSE OF WOUNDS TO BILATERAL FEET AND WEAKNESS. HER VITALS SIGNS THIS MORNING ARE 98.9-52-20-91%-115/68. LABS WERE OBTAINED THIS MORNING. ABNORMAL LAB VALUES INCLUDE THE FOLLOWING: RBC 3.10, HGB 9.7, HCT 28.3, BUN 29, CREATININE 1.57, GFR 34, GLUCOSE 231, CALCIUM 8.3, TOTAL PROTEIN 5.7, ALBUMIN 2.3. PRELIMINARY BLOOD CULTURES CONTINUE TO REPORT NO GROWTH. WOUND CULTURE REPORTS GROWTH OF P.MIRABILIS AND S.AUREUS. BOTH ORGANISMS ARE SENSITIVE TO LEVAQUIN, THEREFORE, WE WILL DISCONTINUE THE VANCOMYCIN AND START LEVAQUIN 750MG IV Q48H. OTHERWISE , WE WILL CONTINUE WITH CURRENT PLAN OF CARE AND CONTINUE TO MONITOR PATIENT. WE PLAN TO FOLLOW UP WITH AM LABS AND CONTINUE TO MONITOR PATIENT. - Past Medical Family Social History Past Med/Fam/Surg Hx: No changes since H&P Allergies: Allergies ezetimibe [From Zetia] Allergy (Verified 07/08/17 18:25) Influenza Virus Vaccines Allergy (Verified 07/08/17 18:25) Penicillins Allergy (Verified 07/08/17 18:25) pneumococcal vaccine Allergy (Verified 07/08/17 18:25) ropinirole [From Requip] Allergy (Verified 07/08/17 18:25) - Review of Systems ROS: No change since H&P - Vital Signs and I&O's Vital Signs: Temperature 97.7 F Pulse Rate [Right Brachial] 86 Pulse Rate [Left Brachial] 50 Pulse Rate 51 Respiratory Rate 18 Blood Pressure [Left Arm] 132/57 Blood Pressure [Right Arm] 122/61 Blood Pressure 168/70 O2 Sat by Pulse Oximetry 93 Intake and Output: Intake & Output 07/11/17 07/12/17 07/13/17 07/14/17 11:59 11:59 11:59 11:59 Intake Total 1939 1620 4180 2198 Output Total 1200 Balance 1939 1620 2460 2198 - Physical Exam Oriented: Normal Eyes: Normal Ear: Normal Nose: Normal Throat: Normal Respiratory: Normal Cardiovascular: Normal : Normal Auscultation: Bowel Sounds: Normal Palpation: Normal Tenderness: Normal Skin: Red, Tender (LEFT FOOT, RIGHT ANKLE ), Wound Musculoskeletal: Normal Psychiatric: Normal Mood Description: Calm Affect: Normal Speech Pattern: Clear, Appropriate - Laboratory and Diagnostics Result Diagrams: 07/13/17 05:35 07/13/17 05:35 Labs: 07/08/17 18:12 Foot - Left Gram Stain - Final 07/08/17 18:12 Foot - Left Wound Culture - Final Proteus Mirabilis Staphylococcus Aureus Stenotrophomonas Maltophilia 07/08/17 17:17 Blood Blood Culture - Preliminary 07/08/17 17:12 Blood Blood Culture - Preliminary 07/09/17 10:20 Urine,Clean Catch Urine Culture - Final Laboratory WBC 9.9 X10^3/uL (3.6-10.0) 07/13/17 05:35 RBC 2.91 X10^6/uL (3.5-5.4) L 07/13/17 05:35 Hgb 8.9 g/dL (12.0-16.0) L 07/13/17 05:35 Hct 26.6 % (36.0-47.0) L 07/13/17 05:35 MCV 91.6 fL (80.0-100.0) 07/13/17 05:35 MCH 30.7 pg (27.0-34.0) 07/13/17 05:35 MCHC 33.5 g/dL (33.0-35.0) 07/13/17 05:35 RDW 14.5 % (11.6-16.5) 07/13/17 05:35 Plt Count 262 X10^3/uL (150.0-450.0) 07/13/17 05:35 MPV 8.2 fL (7.4-11.0) 07/13/17 05:35 Neut % 74.0 % (42.0-75.0) 07/13/17 05:35 Lymph % 9.8 % (21.0-51.0) L 07/13/17 05:35 [place] % 9.6 % (0.0-13.0) 07/13/17 05:35 Eos % 6.0 % (0.9-2.9) H 07/13/17 05:35 Baso % 0.6 % (0.2-1.0) 07/13/17 05:35 Neut # 7.4 x10^3/uL (2.2-4.8) H 07/13/17 05:35 Lymph # 1.0 X10^3/uL (1.3-2.9) L 07/13/17 05:35 [place] # 1.0 x10^3/uL (0.3-0.8) H 07/13/17 05:35 Eos # 0.6 x10^3/uL (0.0-0.2) H 07/13/17 05:35 Baso # 0.1 X10^3/uL (0.0-0.1) 07/13/17 05:35 Absolute Nucleated RBC 0.0 /100WBC 07/13/17 05:35 ESR 77 MM/HOUR (0-20) H 07/12/17 05:05 INR Target Range - 07/08/17 17:12 INR 1.07 (0.8-1.3) 07/08/17 17:12 Sodium 139 mmol/L (136-145) 07/13/17 05:35 Corrected Sodium 141 mmol/L (136-145) 07/13/17 05:35 Potassium 5.3 mmol/L (3.5-5.1) H 07/13/17 05:35 Chloride 106 mmol/L (98-107) 07/13/17 05:35 Carbon Dioxide 27.7 mmol/L (21-32) 07/13/17 05:35 BUN 25 mg/dL (7-18) H 07/13/17 05:35 Creatinine 1.54 mg/dL (0.55-1.02) H 07/13/17 05:35 Est GFR (MDRD) Af Amer 41 (>60) L 07/13/17 05:35 Est GFR (MDRD) Non-Af 34 (>60) L 07/13/17 05:35 Glucose 195 mg/dL (65-99) H 07/13/17 05:35 POC Glucose (mg/dL) 177 mg/dL (65-99) H 07/13/17 21:59 Calcium 8.7 mg/dL (8.5-10.1) 07/13/17 05:35 Corrected Calcium 9.5 mg/dL (8.5-10.1) 07/13/17 05:35 Total Bilirubin 0.30 mg/dL (0.2-1.0) 07/13/17 05:35 AST 15 Units/L (15-37) 07/13/17 05:35 ALT 15 Units/L (12-78) 07/13/17 05:35 Alkaline Phosphatase 73 Units/L (46-116) 07/13/17 05:35 C-Reactive Protein 33.00 mg/L (0-3.0) H 07/12/17 05:05 Total Protein 6.3 g/dL (6.4-8.2) L 07/13/17 05:35 Albumin 3.0 g/dL (3.4-5.0) L 07/13/17 05:35 Globulin 3.3 g/dL (2.5-4.5) 07/13/17 05:35 Albumin/Globulin Ratio 0.9 Ratio (1.1-2.1) L 07/13/17 05:35 Specimen Type Clean catch urine 07/09/17 10:20 Urine Color Yellow (YELLOW) 07/09/17 10:20 Urine Appearance Slightly hazy (CLEAR) 07/09/17 10:20 Urine pH 5.0 (5.0 - 8.0) 07/09/17 10:20 Ur Specific [place] 1.020 (1.000-1.030) 07/09/17 10:20 Urine Protein 2+ (NEGATIVE) 07/09/17 10:20 Urine Glucose (UA) Negative (NEGATIVE) 07/09/17 10:20 Urine Ketones Negative (NEGATIVE) 07/09/17 10:20 Urine Occult Blood 1+ (NEGATIVE) 07/09/17 10:20 Urine Nitrite Negative (NEGATIVE) 07/09/17 10:20 Urine Bilirubin Negative (NEGATIVE) 07/09/17 10:20 Urine Urobilinogen Normal (NORMAL) 07/09/17 10:20 Ur Leukocyte Esterase 3+ (NEGATIVE) 07/09/17 10:20 Urine RBC 2-4 /HPF (NEGATIVE) 07/09/17 10:20 Urine WBC 5-7 /HPF (NEGATIVE) 07/09/17 10:20 Ur Squamous Epith Cells Few /HPF (NEGATIVE) 07/09/17 10:20 Amorphous Sediment Trace /HPF (NEGATIVE) 07/09/17 10:20 Urine Bacteria Trace /HPF (NEGATIVE) 07/09/17 10:20 Urine Mucus Few /HPF (NEGATIVE) 07/09/17 10:20 Ur Culture Indicated? Yes/culture set up 07/09/17 10:20 - Plan (1) Diabetic ulcer of left great toe Status: Acute Plan: VANCOMYCIN IV DAILY, WOUND CARE, BILATERAL ARTERIAL DOPPLER, CONTINUE TO MONITOR (2) Staph aureus infection Status: Acute Plan: LEVAQUIN 750MG IV Q48H, WOUND CARE, CONTINUE TO MONITOR (3) Proteus infection Status: Acute Plan: LEVAQUIN 750MG IV Q48H, WOUND CARE, CONTINUE TO MONITOR (4) Shortness of breath Status: Acute Plan: DUONEBS PRN, CONTINUE TO MONITOR (5) Depression Status: Chronic Qualifiers: Depression Type: major depressive disorder Major depression recurrence: recurrent Active/Remission status: remission status unspecified Qualified Code(s): F33.9 - Major depressive disorder, recurrent, unspecified Plan: CONTINUE VENLAFAXINE,CONTINUE TO MONITOR (6) CAD (coronary artery disease) Status: Chronic Qualifiers: Coronary Disease-Associated Artery/Lesion type: [place] artery [place] vs. transplanted heart: [place] heart Associated angina: without angina Qualified Code(s): I25.10 - Atherosclerotic heart disease of [place] coronary artery without angina pectoris Plan: CONTINUE PLAVIX, CONTINUE TO MONITOR (7) Diabetes mellitus, type 2 Status: Chronic Qualifiers: Diabetes mellitus complication status: with hypoglycemia Diabetes mellitus complication detail: without coma Diabetes mellitus skilled nursing insulin use: with skilled nursing use Qualified Code(s): E11.649 - Type 2 diabetes mellitus with hypoglycemia without coma Plan: HUMULIN R SLIDING SCALE, LANTUS 12UNITS SC HS, MONITOR OTBS, CONTINUE TO MONITOR (8) GERD (gastroesophageal reflux disease) Status: Chronic Qualifiers: Esophagitis presence: with esophagitis Qualified Code(s): K21.0 - Gastro- esophageal reflux disease with esophagitis Plan: CONTINUE PROTONIX, CONTINUE TO MONITOR (9) Hypertension Status: Chronic Qualifiers: Hypertension type: essential hypertension Plan: CONTINUE COREG, CONTINUE TO MONITOR (10) Hyperlipidemia Status: Chronic Qualifiers: Hyperlipidemia type: mixed hyperlipidemia Qualified Code(s): E78.2 - Mixed hyperlipidemia Plan: CONTINUE ZOCOR, CONTINUE TO MONITOR
[2017-07-14] MEDS: NS 1/2 1000 ML IV 1,000 ML IV SCH ×2 (05:02→16:59)
[2017-07-14 05:31] LABS: BASOPHILS # (AUTO) 0.1 X10^3/uL (0.0-0.1); BASOPHILS % (AUTO) 0.5 % (0.2-1.0); EOSINOPHILS # (AUTO) 0.4 x10^3/uL (0.0-0.2); EOSINOPHILS % (AUTO) 4.2 % (0.9-2.9); HEMATOCRIT 24.8 % (36.0-47.0); HEMOGLOBIN 8.3 g/dL (12.0-16.0); LYMPHOCYTES # (AUTO) 0.8 X10^3/uL (1.3-2.9); LYMPHOCYTES % (AUTO) 8.5 % (21.0-51.0); MEAN CORPUSCULAR HEMOGLOBIN 30.7 pg (27.0-34.0); MEAN CORPUSCULAR HGB CONC 33.4 g/dL (33.0-35.0); MEAN CORPUSCULAR VOLUME 91.9 fL (80.0-100.0); MEAN PLATELET VOLUME 8.1 fL (7.4-11.0); MONOCYTES # (AUTO) 0.9 x10^3/uL (0.3-0.8); NEUTROPHILS # (AUTO) 7.4 x10^3/uL (2.2-4.8); NEUTROPHILS % (AUTO) 77.8 % (42.0-75.0); PLATELET COUNT 216 X10^3/uL (150.0-450.0); RED CELL DISTRIBUTION WIDTH 14.4 % (11.6-16.5); WHITE BLOOD COUNT 9.5 X10^3/uL (3.6-10.0)
[2017-07-14 05:48] LABS: CALCIUM 8.3 mg/dL (8.5-10.1); CARBON DIOXIDE 25.2 mmol/L (21-32); COR CA(FOR HYPOALB) 9.1 mg/dL (8.5-10.1); CREATININE 1.34 mg/dL (0.55-1.02)
[2017-07-14] MEDS: ALBUMIN HUMAN 25%- 100ML 200 ML IV SCH (08:55)
[2017-07-14] MEDS: PROTONIX TAB 40 MG PO SCH (08:57)
[2017-07-14] MEDS: VITAMIN D3 PO SCH (08:57)
[2017-07-14] MEDS: PLAVIX PO SCH (08:57)
[2017-07-14] MEDS: COREG TAB 3.125 MG PO SCH ×2 (08:57→22:10)
[2017-07-14] MEDS: GENTAMICIN TOPICAL OINT TOP SCH ×2 (08:58→22:16)
[2017-07-14] MEDS: NEURONTIN CAP 300 MG PO SCH ×2 (08:58→22:15)
[2017-07-14] MEDS: EFFEXOR XR 75 MG CAP PO SCH (08:58)
[2017-07-14] MEDS: NYSTATIN POWDER TOP SCH ×2 (08:59→22:16)
[2017-07-14] MEDS: ZOFRAN INJ 4 MG VIAL IVP PRN (11:09)
[2017-07-14] MEDS: NORCO 10/325 TAB PO PRN (11:09)
[2017-07-14] MEDS ORDERED: NS 100 ML IV 100 ML IV ONE (11:10)
[2017-07-14] MEDS: DUONEB 0.5 MG/3 MG NEB PRN (11:51)
[2017-07-14] MEDS ORDERED: NORCO 5/325 MG TAB PO SCH (12:00)
--- NOTE | 2017-07-14 12:09 | RAD ---
HISTORY: Shortness of breath Study: Portable chest Comparison: 07/08/2017 Findings: The heart is mildly enlarged but unchanged. The pulmonary vessels are engorged and ill-defined centra lly . There are mild to moderate perihilar and bibasilar opacities which have increased . There is mi ld blunting of the costophrenic sulci which is more apparent. IMPRESSION: Stable cardiomegaly with mild to moderate pulmonary edema and small bibasilar pleural effusions which is more prominent. Reported By:
[2017-07-14] MEDS: HumuLIN R SC PRN ×2 (12:28→16:58)
--- NOTE | 2017-07-14 13:21 | PCM.PROG ---
Progress Note - Progress Note for Day of Date: 07/12/17 - Subjective Subjective: WAS ADMITTED FOR A DIABETIC ULCER TO THE LEFT FOOT AND THE RIGHT ANKLE. TODAY, SHE IS ALERT AND ORIENTED, LYING IN BED ON MORNING ROUNDS. SHE CONTINUES WITH COMPLAINTS OF PAIN TO THE LEFT FOOT. ON EXAMINATION, LUNG SOUNDS ARE NOTED TO BE DIMINISHED THROUGHOUT. ABDOMEN IS SOFT, ROUND, AND NON-TENDER WITH NORMAL BOWEL SOUNDS NOTED IN ALL QUADRANTS. RIGHT GREAT TOE CONTINUES WITH A DIABETIC ULCER WITH DRAINAGE. SHE ALSO CONTINUES WITH WEAKNESS AND SHORTNESS OF BREATH. PATIENT IS HAVING A DIFFICULT TIME AMBULATING DUE TO PAIN IN HER FEET. HER VITALS SIGNS THIS MORNING ARE 97.7-44-18-96%-130/61. ABNORMAL LAB VALUES THIS MORNING INCLUDE THE FOLLOWING: RBC 2.95, HGB 9.0, HCT 27.0, POTASSIUM 5.2, BUN 24, CREATININE 1.53, GFR 35, GLUCOSE 273, CALCIUM 8.2 , TOTAL PROTEIN 5.7, ALBUMIN 2.2. PRELIMINARY BLOOD CULTURES CONTINUE TO REPORT NO GROWTH. WOUND CULTURE REPORTS GROWTH OF A THIRD MICROORGANISM, STENOTROPHOMONAL MALTOPHILIA. IT IS SENSITIVE TO LEVAQUIN WELL. TODAY, WE WILL CONTINUE TO TREAT WITH ANTIBIOTICS AND WOUND CARE. PHYSICAL THERAPY WILL CONTINUE TO WORK WITH PATIENT. WE PLAN TO FOLLOW UP WITH AM LABS AND CONTINUE TO MONITOR PATIENT. - Past Medical Family Social History Past Med/Fam/Surg Hx: No changes since H&P Allergies: Allergies ezetimibe [From Zetia] Allergy (Verified 07/08/17 18:25) Influenza Virus Vaccines Allergy (Verified 07/08/17 18:25) Penicillins Allergy (Verified 07/08/17 18:25) pneumococcal vaccine Allergy (Verified 07/08/17 18:25) ropinirole [From Requip] Allergy (Verified 07/08/17 18:25) - Review of Systems ROS: No change since H&P - Vital Signs and I&O's Vital Signs: Temperature 97.9 F Pulse Rate [Right Brachial] 75 Pulse Rate [Left Brachial] 50 Pulse Rate 67 Respiratory Rate 20 Blood Pressure [Left Arm] 140/60 Blood Pressure [Right Arm] 142/62 Blood Pressure 168/70 O2 Sat by Pulse Oximetry 93 Intake and Output: Intake & Output 07/12/17 07/13/17 07/14/17 07/15/17 11:59 11:59 11:59 11:59 Intake Total 1620 3660 2198 Output Total 1200 Balance 1620 2460 2198 - Physical Exam Oriented: Normal Eyes: Normal Ear: Normal Nose: Normal Throat: Normal Respiratory: Generalized, Diminished Cardiovascular: Normal : Normal Auscultation: Bowel Sounds: Normal Palpation: Normal Tenderness: Normal Skin: Red, Tender (LEFT FOOT, RIGHT ANKLE ), Wound Musculoskeletal: Normal Psychiatric: Normal Mood Description: Calm Affect: Normal Speech Pattern: Clear, Appropriate - Laboratory and Diagnostics Result Diagrams: 07/14/17 04:20 07/14/17 04:20 Labs: 07/08/17 17:12 Blood Blood Culture - Final 07/08/17 17:17 Blood Blood Culture - Final 07/08/17 18:12 Foot - Left Gram Stain - Final 07/08/17 18:12 Foot - Left Wound Culture - Final Proteus Mirabilis Staphylococcus Aureus Stenotrophomonas Maltophilia 07/09/17 10:20 Urine,Clean Catch Urine Culture - Final Laboratory WBC 9.5 X10^3/uL (3.6-10.0) 07/14/17 04:20 RBC 2.70 X10^6/uL (3.5-5.4) L 07/14/17 04:20 Hgb 8.3 g/dL (12.0-16.0) L 07/14/17 04:20 Hct 24.8 % (36.0-47.0) L 07/14/17 04:20 MCV 91.9 fL (80.0-100.0) 07/14/17 04:20 MCH 30.7 pg (27.0-34.0) 07/14/17 04:20 MCHC 33.4 g/dL (33.0-35.0) 07/14/17 04:20 RDW 14.4 % (11.6-16.5) 07/14/17 04:20 Plt Count 216 X10^3/uL (150.0-450.0) 07/14/17 04:20 MPV 8.1 fL (7.4-11.0) 07/14/17 04:20 Neut % 77.8 % (42.0-75.0) H 07/14/17 04:20 Lymph % 8.5 % (21.0-51.0) L 07/14/17 04:20 [place] % 9.0 % (0.0-13.0) 07/14/17 04:20 Eos % 4.2 % (0.9-2.9) H 07/14/17 04:20 Baso % 0.5 % (0.2-1.0) 07/14/17 04:20 Neut # 7.4 x10^3/uL (2.2-4.8) H 07/14/17 04:20 Lymph # 0.8 X10^3/uL (1.3-2.9) L 07/14/17 04:20 [place] # 0.9 x10^3/uL (0.3-0.8) H 07/14/17 04:20 Eos # 0.4 x10^3/uL (0.0-0.2) H 07/14/17 04:20 Baso # 0.1 X10^3/uL (0.0-0.1) 07/14/17 04:20 Absolute Nucleated RBC 0.0 /100WBC 07/14/17 04:20 ESR 95 MM/HOUR (0-20) H 07/14/17 04:20 INR Target Range - 07/08/17 17:12 INR 1.07 (0.8-1.3) 07/08/17 17:12 Sodium 136 mmol/L (136-145) 07/14/17 04:20 Corrected Sodium 137 mmol/L (136-145) 07/14/17 04:20 Potassium 4.5 mmol/L (3.5-5.1) 07/14/17 04:20 Chloride 104 mmol/L (98-107) 07/14/17 04:20 Carbon Dioxide 25.2 mmol/L (21-32) 07/14/17 04:20 BUN 24 mg/dL (7-18) H 07/14/17 04:20 Creatinine 1.34 mg/dL (0.55-1.02) H 07/14/17 04:20 Est GFR (MDRD) Af Amer 49 (>60) L 07/14/17 04:20 Est GFR (MDRD) Non-Af 40 (>60) L 07/14/17 04:20 Glucose 159 mg/dL (65-99) H 07/14/17 04:20 POC Glucose (mg/dL) 192 mg/dL (65-99) H 07/14/17 11:47 Calcium 8.3 mg/dL (8.5-10.1) L 07/14/17 04:20 Corrected Calcium 9.1 mg/dL (8.5-10.1) 07/14/17 04:20 Total Bilirubin 0.40 mg/dL (0.2-1.0) 07/14/17 04:20 AST 27 Units/L (15-37) 07/14/17 04:20 ALT 21 Units/L (12-78) 07/14/17 04:20 Alkaline Phosphatase 73 Units/L (46-116) 07/14/17 04:20 C-Reactive Protein 80.70 mg/L (0-3.0) H 07/14/17 04:20 Total Protein 6.0 g/dL (6.4-8.2) L 07/14/17 04:20 Albumin 3.0 g/dL (3.4-5.0) L 07/14/17 04:20 Globulin 3.0 g/dL (2.5-4.5) 07/14/17 04:20 Albumin/Globulin Ratio 1.0 Ratio (1.1-2.1) L 07/14/17 04:20 Specimen Type Clean catch urine 07/09/17 10:20 Urine Color Yellow (YELLOW) 07/09/17 10:20 Urine Appearance Slightly hazy (CLEAR) 07/09/17 10:20 Urine pH 5.0 (5.0 - 8.0) 07/09/17 10:20 Ur Specific [place] 1.020 (1.000-1.030) 07/09/17 10:20 Urine Protein 2+ (NEGATIVE) 07/09/17 10:20 Urine Glucose (UA) Negative (NEGATIVE) 07/09/17 10:20 Urine Ketones Negative (NEGATIVE) 07/09/17 10:20 Urine Occult Blood 1+ (NEGATIVE) 07/09/17 10:20 Urine Nitrite Negative (NEGATIVE) 07/09/17 10:20 Urine Bilirubin Negative (NEGATIVE) 07/09/17 10:20 Urine Urobilinogen Normal (NORMAL) 07/09/17 10:20 Ur Leukocyte Esterase 3+ (NEGATIVE) 07/09/17 10:20 Urine RBC 2-4 /HPF (NEGATIVE) 07/09/17 10:20 Urine WBC 5-7 /HPF (NEGATIVE) 07/09/17 10:20 Ur Squamous Epith Cells Few /HPF (NEGATIVE) 07/09/17 10:20 Amorphous Sediment Trace /HPF (NEGATIVE) 07/09/17 10:20 Urine Bacteria Trace /HPF (NEGATIVE) 07/09/17 10:20 Urine Mucus Few /HPF (NEGATIVE) 07/09/17 10:20 Ur Culture Indicated? 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 Status: Acute Plan: LEVAQUIN 750MG IV Q48H, WOUND CARE, CONTINUE TO MONITOR (3) Staph aureus infection Status: Acute Plan: LEVAQUIN 750MG IV Q48H, WOUND CARE, CONTINUE TO MONITOR (4) Proteus infection Status: Acute Plan: LEVAQUIN 750MG IV Q48H, WOUND CARE, CONTINUE TO MONITOR (5) Shortness of breath Status: Acute Plan: DUONEBS PRN, CONTINUE TO MONITOR (6) Depression Status: Chronic Qualifiers: Depression Type: major depressive disorder Major depression recurrence: recurrent Active/Remission status: remission status unspecified Qualified Code(s): F33.9 - Major depressive disorder, recurrent, unspecified Plan: CONTINUE VENLAFAXINE,CONTINUE TO MONITOR (7) CAD (coronary artery disease) Status: Chronic Qualifiers: Coronary Disease-Associated Artery/Lesion type: [place] artery [place] vs. transplanted heart: [place] heart Associated angina: without angina Qualified Code(s): I25.10 - Atherosclerotic heart disease of [place] coronary artery without angina pectoris Plan: CONTINUE PLAVIX, CONTINUE TO MONITOR (8) Diabetes mellitus, type 2 Status: Chronic Qualifiers: Diabetes mellitus complication status: with hypoglycemia Diabetes mellitus complication detail: without coma Diabetes mellitus fci insulin use: with fci use Qualified Code(s): E11.649 - Type 2 diabetes mellitus with hypoglycemia without coma Plan: HUMULIN R SLIDING SCALE, LANTUS 12UNITS SC HS, MONITOR OTBS, CONTINUE TO MONITOR (9) GERD (gastroesophageal reflux disease) Status: Chronic Qualifiers: Esophagitis presence: with esophagitis Qualified Code(s): K21.0 - Gastro- esophageal reflux disease with esophagitis Plan: CONTINUE PROTONIX, CONTINUE TO MONITOR (10) Hypertension Status: Chronic Qualifiers: Hypertension type: essential hypertension Plan: CONTINUE COREG, CONTINUE TO MONITOR (11) Hyperlipidemia Status: Chronic Qualifiers: Hyperlipidemia type: mixed hyperlipidemia Qualified Code(s): E78.2 - Mixed hyperlipidemia Plan: CONTINUE ZOCOR, CONTINUE TO MONITOR
--- NOTE | 2017-07-14 14:32 | PCM.PROG ---
Progress Note - Progress Note for Day of Date: 07/13/17 - Subjective Subjective: WAS ADMITTED FOR A DIABETIC ULCER TO THE LEFT FOOT AND THE RIGHT ANKLE. TODAY, SHE IS ALERT AND ORIENTED, LYING IN BED ON MORNING ROUNDS. SHE CONTINUES WITH COMPLAINTS OF PAIN TO THE LEFT FOOT, BUT REPORTS THAT IT HAS SOMEWHAT IMPROVED SINCE YESTERDAY. ON EXAMINATION, LUNG SOUNDS ARE NOTED TO BE DIMINISHED THROUGHOUT. ABDOMEN IS SOFT, ROUND, AND NON-TENDER WITH NORMAL BOWEL SOUNDS NOTED IN ALL QUADRANTS. PATIENT ALSO CONTINUES WITH REPORTS OF WEAKNESS AND ACHING ALL OVER. HER VITALS SIGNS THIS MORNING ARE 99.3-91-20-91 %-116/57. ABNORMAL LAB VALUES THIS MORNING INCLUDE THE FOLLOWING: RBC 2.91, HGB 8.9, HCT 26.6, POTASSIUM 5.3, BUN 25, CREATININE 1.54, GFR 34, GLUCOSE 195, TOTAL PROTEIN 6.3, ALBUMIN 3.0. BLOOD CULTURES CONTINUE TO REPORT NO GROWTH. TODAY, WE WILL START ALBUMIN 25% 2 BAGS DAILY AND ADD MUCOMYST TO BREATHING TX BID. WE WILL CONTINUE TO TREAT WITH ANTIBIOTICS AND WOUND CARE. PHYSICAL THERAPY WILL CONTINUE TO WORK WITH PATIENT. WE PLAN TO FOLLOW UP WITH AM LABS AND CONTINUE TO MONITOR PATIENT. - Past Medical Family Social History Past Med/Fam/Surg Hx: No changes since H&P Allergies: Allergies ezetimibe [From Zetia] Allergy (Verified 07/08/17 18:25) Influenza Virus Vaccines Allergy (Verified 07/08/17 18:25) Penicillins Allergy (Verified 07/08/17 18:25) pneumococcal vaccine Allergy (Verified 07/08/17 18:25) ropinirole [From Requip] Allergy (Verified 07/08/17 18:25) - Review of Systems ROS: No change since H&P - Vital Signs and I&O's Vital Signs: Temperature 97.9 F Pulse Rate [Right Brachial] 75 Pulse Rate [Left Brachial] 50 Pulse Rate 67 Respiratory Rate 20 Blood Pressure [Left Arm] 140/60 Blood Pressure [Right Arm] 142/62 Blood Pressure 168/70 O2 Sat by Pulse Oximetry 93 Intake and Output: Intake & Output 07/12/17 07/13/17 07/14/17 07/15/17 11:59 11:59 11:59 11:59 Intake Total 1620 3660 2198 767 Output Total 1200 Balance 1620 2460 2198 767 - Physical Exam Oriented: Normal Eyes: Normal Ear: Normal Nose: Normal Throat: Normal Respiratory: Generalized, Diminished Cardiovascular: Normal : Normal Auscultation: Bowel Sounds: Normal Palpation: Normal Tenderness: Normal Skin: Red, Tender (LEFT FOOT, RIGHT ANKLE ), Wound Musculoskeletal: Normal Psychiatric: Normal Mood Description: Calm Affect: Normal Speech Pattern: Clear, Appropriate - Laboratory and Diagnostics Result Diagrams: 07/14/17 04:20 07/14/17 04:20 Labs: 07/08/17 17:12 Blood Blood Culture - Final 07/08/17 17:17 Blood Blood Culture - Final 07/08/17 18:12 Foot - Left Gram Stain - Final 07/08/17 18:12 Foot - Left Wound Culture - Final Proteus Mirabilis Staphylococcus Aureus Stenotrophomonas Maltophilia 07/09/17 10:20 Urine,Clean Catch Urine Culture - Final Laboratory WBC 9.5 X10^3/uL (3.6-10.0) 07/14/17 04:20 RBC 2.70 X10^6/uL (3.5-5.4) L 07/14/17 04:20 Hgb 8.3 g/dL (12.0-16.0) L 07/14/17 04:20 Hct 24.8 % (36.0-47.0) L 07/14/17 04:20 MCV 91.9 fL (80.0-100.0) 07/14/17 04:20 MCH 30.7 pg (27.0-34.0) 07/14/17 04:20 MCHC 33.4 g/dL (33.0-35.0) 07/14/17 04:20 RDW 14.4 % (11.6-16.5) 07/14/17 04:20 Plt Count 216 X10^3/uL (150.0-450.0) 07/14/17 04:20 MPV 8.1 fL (7.4-11.0) 07/14/17 04:20 Neut % 77.8 % (42.0-75.0) H 07/14/17 04:20 Lymph % 8.5 % (21.0-51.0) L 07/14/17 04:20 [place] % 9.0 % (0.0-13.0) 07/14/17 04:20 Eos % 4.2 % (0.9-2.9) H 07/14/17 04:20 Baso % 0.5 % (0.2-1.0) 07/14/17 04:20 Neut # 7.4 x10^3/uL (2.2-4.8) H 07/14/17 04:20 Lymph # 0.8 X10^3/uL (1.3-2.9) L 07/14/17 04:20 [place] # 0.9 x10^3/uL (0.3-0.8) H 07/14/17 04:20 Eos # 0.4 x10^3/uL (0.0-0.2) H 07/14/17 04:20 Baso # 0.1 X10^3/uL (0.0-0.1) 07/14/17 04:20 Absolute Nucleated RBC 0.0 /100WBC 07/14/17 04:20 ESR 95 MM/HOUR (0-20) H 07/14/17 04:20 INR Target Range - 07/08/17 17:12 INR 1.07 (0.8-1.3) 07/08/17 17:12 Sodium 136 mmol/L (136-145) 07/14/17 04:20 Corrected Sodium 137 mmol/L (136-145) 07/14/17 04:20 Potassium 4.5 mmol/L (3.5-5.1) 07/14/17 04:20 Chloride 104 mmol/L (98-107) 07/14/17 04:20 Carbon Dioxide 25.2 mmol/L (21-32) 07/14/17 04:20 BUN 24 mg/dL (7-18) H 07/14/17 04:20 Creatinine 1.34 mg/dL (0.55-1.02) H 07/14/17 04:20 Est GFR (MDRD) Af Amer 49 (>60) L 07/14/17 04:20 Est GFR (MDRD) Non-Af 40 (>60) L 07/14/17 04:20 Glucose 159 mg/dL (65-99) H 07/14/17 04:20 POC Glucose (mg/dL) 192 mg/dL (65-99) H 07/14/17 11:47 Calcium 8.3 mg/dL (8.5-10.1) L 07/14/17 04:20 Corrected Calcium 9.1 mg/dL (8.5-10.1) 07/14/17 04:20 Total Bilirubin 0.40 mg/dL (0.2-1.0) 07/14/17 04:20 AST 27 Units/L (15-37) 07/14/17 04:20 ALT 21 Units/L (12-78) 07/14/17 04:20 Alkaline Phosphatase 73 Units/L (46-116) 07/14/17 04:20 C-Reactive Protein 80.70 mg/L (0-3.0) H 07/14/17 04:20 Total Protein 6.0 g/dL (6.4-8.2) L 07/14/17 04:20 Albumin 3.0 g/dL (3.4-5.0) L 07/14/17 04:20 Globulin 3.0 g/dL (2.5-4.5) 07/14/17 04:20 Albumin/Globulin Ratio 1.0 Ratio (1.1-2.1) L 07/14/17 04:20 Specimen Type Clean catch urine 07/09/17 10:20 Urine Color Yellow (YELLOW) 07/09/17 10:20 Urine Appearance Slightly hazy (CLEAR) 07/09/17 10:20 Urine pH 5.0 (5.0 - 8.0) 07/09/17 10:20 Ur Specific [place] 1.020 (1.000-1.030) 07/09/17 10:20 Urine Protein 2+ (NEGATIVE) 07/09/17 10:20 Urine Glucose (UA) Negative (NEGATIVE) 07/09/17 10:20 Urine Ketones Negative (NEGATIVE) 07/09/17 10:20 Urine Occult Blood 1+ (NEGATIVE) 07/09/17 10:20 Urine Nitrite Negative (NEGATIVE) 07/09/17 10:20 Urine Bilirubin Negative (NEGATIVE) 07/09/17 10:20 Urine Urobilinogen Normal (NORMAL) 07/09/17 10:20 Ur Leukocyte Esterase 3+ (NEGATIVE) 07/09/17 10:20 Urine RBC 2-4 /HPF (NEGATIVE) 07/09/17 10:20 Urine WBC 5-7 /HPF (NEGATIVE) 10/20/17 10:20 Ur Squamous Epith Cells Few /HPF (NEGATIVE) 07/09/17 10:20 Amorphous Sediment Trace /HPF (NEGATIVE) 07/09/17 10:20 Urine Bacteria Trace /HPF (NEGATIVE) 07/09/17 10:20 Urine Mucus Few /HPF (NEGATIVE) 07/09/17 10:20 Ur Culture Indicated? 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 Status: Acute Plan: LEVAQUIN 750MG IV Q48H, WOUND CARE, CONTINUE TO MONITOR (3) Staph aureus infection Status: Acute Plan: LEVAQUIN 750MG IV Q48H, WOUND CARE, CONTINUE TO MONITOR (4) Proteus infection Status: Acute Plan: LEVAQUIN 750MG IV Q48H, WOUND CARE, CONTINUE TO MONITOR (5) Shortness of breath Status: Acute Plan: DUONEBS PRN, CONTINUE TO MONITOR (6) Depression Status: Chronic Qualifiers: Depression Type: major depressive disorder Major depression recurrence: recurrent Active/Remission status: remission status unspecified Qualified Code(s): F33.9 - Major depressive disorder, recurrent, unspecified Plan: CONTINUE VENLAFAXINE,CONTINUE TO MONITOR (7) CAD (coronary artery disease) Status: Chronic Qualifiers: Coronary Disease-Associated Artery/Lesion type: [place] artery [place] vs. 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 Qualified Code(s): E11.649 - Type 2 diabetes mellitus with hypoglycemia without coma Plan: HUMULIN R SLIDING SCALE, LANTUS 12UNITS SC HS, MONITOR OTBS, CONTINUE TO MONITOR (9) GERD (gastroesophageal reflux disease) Status: Chronic Qualifiers: Esophagitis presence: with esophagitis Qualified Code(s): K21.0 - Gastro- esophageal reflux disease with esophagitis Plan: CONTINUE PROTONIX, CONTINUE TO MONITOR (10) Hypertension Status: Chronic Qualifiers: Hypertension type: essential hypertension Plan: CONTINUE COREG, CONTINUE TO MONITOR (11) Hyperlipidemia Status: Chronic Qualifiers: Hyperlipidemia type: mixed hyperlipidemia Qualified Code(s): E78.2 - Mixed hyperlipidemia Plan: CONTINUE ZOCOR, CONTINUE TO MONITOR (12) Hypoalbuminemia Status: Acute Plan: ALBUMIN 25% 2 BAGS IV DAILY, CONTINUE TO MONITOR
[2017-07-14] MEDS: NORCO 5/325 MG TAB PO SCH ×2 (15:57→22:10)
[2017-07-14] MEDS: MILK OF MAGNESIA PO SCH ×2 (22:09→22:10)
[2017-07-14] MEDS: LANTUS SC SCH (22:09)
[2017-07-14] MEDS: ZOCOR TAB 40 MG PO SCH (22:10)
[2017-07-14] MEDS: NEURONTIN CAP 400 MG PO SCH (22:10)
[2017-07-14] MEDS: COLACE CAP 100 MG PO SCH (22:10)
[2017-07-15 06:17] LABS: BASOPHILS # (AUTO) 0.1 X10^3/uL (0.0-0.1); BASOPHILS % (AUTO) 0.5 % (0.2-1.0); EOSINOPHILS # (AUTO) 0.3 x10^3/uL (0.0-0.2); EOSINOPHILS % (AUTO) 3.3 % (0.9-2.9); HEMATOCRIT 24.7 % (36.0-47.0); HEMOGLOBIN 8.4 g/dL (12.0-16.0); LYMPHOCYTES # (AUTO) 0.8 X10^3/uL (1.3-2.9); LYMPHOCYTES % (AUTO) 7.8 % (21.0-51.0); MEAN CORPUSCULAR HEMOGLOBIN 30.9 pg (27.0-34.0); MEAN CORPUSCULAR HGB CONC 33.9 g/dL (33.0-35.0); MEAN CORPUSCULAR VOLUME 91.2 fL (80.0-100.0); MEAN PLATELET VOLUME 8.4 fL (7.4-11.0); MONOCYTES # (AUTO) 0.9 x10^3/uL (0.3-0.8); MONOCYTES % (AUTO) 8.5 % (0.0-13.0); NEUTROPHILS # (AUTO) 8.2 x10^3/uL (2.2-4.8); NEUTROPHILS % (AUTO) 79.9 % (42.0-75.0); PLATELET COUNT 220 X10^3/uL (150.0-450.0); RED BLOOD COUNT 2.71 X10^6/uL (3.5-5.4); RED CELL DISTRIBUTION WIDTH 14.7 % (11.6-16.5); WHITE BLOOD COUNT 10.3 X10^3/uL (3.6-10.0)
[2017-07-15 06:27] LABS: ALANINE AMINOTRANSFERASE 24 Units/L (12-78); ALBUMIN 3.5 g/dL (3.4-5.0); ALKALINE PHOSPHATASE 75 Units/L (46-116); ASPARTATE AMINO TRANSFERASE 20 Units/L (15-37); BLOOD UREA NITROGEN 30 mg/dL (7-18); CALCIUM 8.7 mg/dL (8.5-10.1); CARBON DIOXIDE 27.5 mmol/L (21-32); CHLORIDE 103 mmol/L (98-107); COR NA(FOR HYPERGLY) 137 mmol/L (136-145); CREATININE 1.55 mg/dL (0.55-1.02); SODIUM 136 mmol/L (136-145); TOTAL PROTEIN 6.4 g/dL (6.4-8.2); eGFR BLACK RACES 41 (>60); eGFR NON BLACK RACES 34 (>60)
[2017-07-15 07:36] LABS: ERYTHROCYTE SEDIMENTATION RATE 64 MM/HOUR (0-20)
[2017-07-15] MEDS: DUONEB 0.5 MG/3 MG NEB PRN (09:24)
[2017-07-15] MEDS: NORCO 5/325 MG TAB PO SCH ×4 (09:30→21:08)
[2017-07-15] MEDS: NEURONTIN CAP 300 MG PO SCH ×2 (09:30→23:52)
[2017-07-15] MEDS: VITAMIN D3 PO SCH (09:30)
[2017-07-15] MEDS: NYSTATIN POWDER TOP SCH ×2 (09:45→23:52)
[2017-07-15] MEDS: EFFEXOR XR 75 MG CAP PO SCH (10:14)
[2017-07-15] MEDS: LASIX IVP SCH ×2 (10:14→21:09)
[2017-07-15] MEDS: COREG TAB 3.125 MG PO SCH ×2 (10:18→21:08)
[2017-07-15] MEDS: PLAVIX PO SCH (10:19)
[2017-07-15] MEDS: ALBUMIN HUMAN 25%- 100ML 200 ML IV SCH (10:20)
[2017-07-15] MEDS: PROTONIX TAB 40 MG PO SCH (10:24)
[2017-07-15] MEDS: GENTAMICIN TOPICAL OINT TOP SCH ×2 (10:27→21:09)
[2017-07-15] MEDS: HumuLIN R SC PRN ×2 (11:50→16:39)
[2017-07-15] MEDS: LEVAQUIN PREMIX IV 750 MG 750 MG/150 ML BAG IV SCH (15:00)
[2017-07-15] MEDS: COLACE CAP 100 MG PO SCH (21:08)
[2017-07-15] MEDS: NEURONTIN CAP 400 MG PO SCH (21:08)
[2017-07-15] MEDS: ZOCOR TAB 40 MG PO SCH (21:09)
[2017-07-15] MEDS: MILK OF MAGNESIA PO SCH (21:10)
[2017-07-15] MEDS: LANTUS SC SCH (21:10)
--- NOTE | 2017-07-15 21:39 | PCM.PROG ---
Progress Note - Progress Note for Day of Date: 07/14/17 - Subjective Subjective: WAS ADMITTED FOR A DIABETIC ULCER TO THE LEFT FOOT AND THE RIGHT ANKLE. TODAY, SHE IS ALERT AND ORIENTED, LYING IN BED ON MORNING ROUNDS. SHE CONTINUES WITH COMPLAINTS OF PAIN TO THE LEFT FOOT. ON EXAMINATION, LUNG SOUNDS ARE NOTED TO BE DIMINISHED THROUGHOUT. ABDOMEN IS SOFT, ROUND, AND NON-TENDER WITH NORMAL BOWEL SOUNDS NOTED IN ALL QUADRANTS. HER VITALS SIGNS THIS MORNING ARE 97.6-67-20-95%-137/58. ABNORMAL LAB VALUES THIS MORNING INCLUDE THE FOLLOWING: RBC 2.70, HGB 8.3, HCT 24.8, POTASSIUM 5.3, BUN 24, CREATININE 1.34, GFR 40, GLUCOSE 159, TOTAL PROTEIN 6.0, ALBUMIN 3.0. BLOOD CULTURES CONTINUE TO REPORT NO GROWTH. DURING THE AFTERNOON, PATIENT COMPLAINED OF FEELING SHORT OF BREATH AND LIKE SHE WAS GOING TO PASS OUT. A CHEST XRAY WAS ORDERED. IT REPORTED STABLE CARDIOMEGALY WITH MILD TO MODERATED PULMONARY EDEMA AND SMALL BIBASILAR PLEURAL EFFUSIONS WHICH IS MORE PROMINENT. WE WILL HEPLOCK FLUIDS AND ORDER FOR FLUID RESTRICTION LESS THAN 1,000ML/DAY. OTHERWISE, WE WILL CONTINUE WITH CURRENT PLAN OF CARE AND OBTAIN A CTA OF THE LOWER EXTREMITIES. WE PLAN TO FOLLOW UP WITH AM LABS AND CONTINUE TO MONITOR PATIENT. - Past Medical Family Social History Past Med/Fam/Surg Hx: No changes since H&P Allergies: Allergies ezetimibe [From Zetia] Allergy (Verified 07/08/17 18:25) Influenza Virus Vaccines Allergy (Verified 07/08/17 18:25) Penicillins Allergy (Verified 07/08/17 18:25) pneumococcal vaccine Allergy (Verified 07/08/17 18:25) ropinirole [From Requip] Allergy (Verified 07/08/17 18:25) - Review of Systems ROS: No change since H&P - Vital Signs and I&O's Vital Signs: Temperature 97.6 F Pulse Rate [Right Brachial] 80 Pulse Rate [Left Brachial] 50 Pulse Rate 73 Respiratory Rate 18 Blood Pressure [Left Arm] 103/59 Blood Pressure [Right Arm] 127/61 Blood Pressure 168/70 O2 Sat by Pulse Oximetry 95 Intake and Output: Intake & Output 07/13/17 07/14/17 07/15/17 07/16/17 11:59 11:59 11:59 11:59 Intake Total 9590 2198 1247 720 Output Total 1200 Balance 2460 2198 1247 720 - Physical Exam Oriented: Normal Eyes: Normal Ear: Normal Nose: Normal Throat: Normal Respiratory: Generalized, Diminished Cardiovascular: Normal : Normal Auscultation: Bowel Sounds: Normal Palpation: Normal Tenderness: Normal Skin: Red, Tender (LEFT FOOT, RIGHT ANKLE ), Wound Musculoskeletal: Normal Psychiatric: Normal Mood Description: Calm Affect: Normal Speech Pattern: Clear, Appropriate - Laboratory and Diagnostics Result Diagrams: 07/15/17 05:05 07/15/17 05:05 Labs: 07/08/17 17:12 Blood Blood Culture - Final 07/08/17 17:17 Blood Blood Culture - Final 07/08/17 18:12 Foot - Left Gram Stain - Final 07/08/17 18:12 Foot - Left Wound Culture - Final Proteus Mirabilis Staphylococcus Aureus Stenotrophomonas Maltophilia 07/09/17 10:20 Urine,Clean Catch Urine Culture - Final Laboratory WBC 10.3 X10^3/uL (3.6-10.0) H 07/15/17 05:05 RBC 2.71 X10^6/uL (3.5-5.4) L 07/15/17 05:05 Hgb 8.4 g/dL (12.0-16.0) L 07/15/17 05:05 Hct 24.7 % (36.0-47.0) L 07/15/17 05:05 MCV 91.2 fL (80.0-100.0) 07/15/17 05:05 MCH 30.9 pg (27.0-34.0) 07/15/17 05:05 MCHC 33.9 g/dL (33.0-35.0) 07/15/17 05:05 RDW 14.7 % (11.6-16.5) 07/15/17 05:05 Plt Count 220 X10^3/uL (150.0-450.0) 07/15/17 05:05 MPV 8.4 fL (7.4-11.0) 07/15/17 05:05 Neut % 79.9 % (42.0-75.0) H 07/15/17 05:05 Lymph % 7.8 % (21.0-51.0) L 07/15/17 05:05 [place] % 8.5 % (0.0-13.0) 07/15/17 05:05 Eos % 3.3 % (0.9-2.9) H 07/15/17 05:05 Baso % 0.5 % (0.2-1.0) 07/15/17 05:05 Neut # 8.2 x10^3/uL (2.2-4.8) H 07/15/17 05:05 Lymph # 0.8 X10^3/uL (1.3-2.9) L 07/15/17 05:05 [place] # 0.9 x10^3/uL (0.3-0.8) H 07/15/17 05:05 Eos # 0.3 x10^3/uL (0.0-0.2) H 07/15/17 05:05 Baso # 0.1 X10^3/uL (0.0-0.1) 07/15/17 05:05 Absolute Nucleated RBC 0.0 /100WBC 07/15/17 05:05 ESR 64 MM/HOUR (0-20) H 07/15/17 05:05 INR Target Range - 07/08/17 17:12 INR 1.07 (0.8-1.3) 07/08/17 17:12 Sodium 136 mmol/L (136-145) 07/15/17 05:05 Corrected Sodium 137 mmol/L (136-145) 07/15/17 05:05 Potassium 5.5 mmol/L (3.5-5.1) H 07/15/17 05:05 Chloride 103 mmol/L (98-107) 07/15/17 05:05 Carbon Dioxide 27.5 mmol/L (21-32) 07/15/17 05:05 BUN 30 mg/dL (7-18) H 07/15/17 05:05 Creatinine 1.55 mg/dL (0.55-1.02) H 07/15/17 05:05 Est GFR (MDRD) Af Amer 41 (>60) L 07/15/17 05:05 Est GFR (MDRD) Non-Af 34 (>60) L 07/15/17 05:05 Glucose 146 mg/dL (65-99) H 07/15/17 05:05 POC Glucose (mg/dL) 202 mg/dL (65-99) H 07/15/17 20:39 Calcium 8.7 mg/dL (8.5-10.1) 07/15/17 05:05 Corrected Calcium TNP 07/15/17 05:05 Total Bilirubin 0.50 mg/dL (0.2-1.0) 07/15/17 05:05 AST 20 Units/L (15-37) 07/15/17 05:05 ALT 24 Units/L (12-78) 07/15/17 05:05 Alkaline Phosphatase 75 Units/L (46-116) 07/15/17 05:05 C-Reactive Protein 119.00 mg/L (0-3.0) H 07/15/17 05:05 Total Protein 6.4 g/dL (6.4-8.2) 07/15/17 05:05 Albumin 3.5 g/dL (3.4-5.0) 07/15/17 05:05 Globulin 2.9 g/dL (2.5-4.5) 07/15/17 05:05 Albumin/Globulin Ratio 1.2 Ratio (1.1-2.1) 07/15/17 05:05 Specimen Type Clean catch urine 07/09/17 10:20 Urine Color Yellow (YELLOW) 07/09/17 10:20 Urine Appearance Slightly hazy (CLEAR) 07/09/17 10:20 Urine pH 5.0 (5.0 - 8.0) 07/09/17 10:20 Ur Specific [place] 1.020 (1.000-1.030) 07/09/17 10:20 Urine Protein 2+ (NEGATIVE) 07/09/17 10:20 Urine Glucose (UA) Negative (NEGATIVE) 07/09/17 10:20 Urine Ketones Negative (NEGATIVE) 07/09/17 10:20 Urine Occult Blood 1+ (NEGATIVE) 07/09/17 10:20 Urine Nitrite Negative (NEGATIVE) 07/09/17 10:20 Urine Bilirubin Negative (NEGATIVE) 07/09/17 10:20 Urine Urobilinogen Normal (NORMAL) 07/09/17 10:20 Ur Leukocyte Esterase 3+ (NEGATIVE) 07/09/17 10:20 Urine RBC 2-4 /HPF (NEGATIVE) 07/09/17 10:20 Urine WBC 5-7 /HPF (NEGATIVE) 07/09/17 10:20 Ur Squamous Epith Cells Few /HPF (NEGATIVE) 07/09/17 10:20 Amorphous Sediment Trace /HPF (NEGATIVE) 07/09/17 10:20 Urine Bacteria Trace /HPF (NEGATIVE) 07/09/17 10:20 Urine Mucus Few /HPF (NEGATIVE) 07/09/17 10:20 Ur Culture Indicated? Yes/culture set up 07/09/17 10:20 Influenza Type A (PCR) Negative (NEGATIVE) 07/14/17 15:07 Influenza Type B (PCR) Negative (NEGATIVE) 07/14/17 15:07 - Plan (1) Diabetic ulcer of left great toe Status: Acute Plan: LEVAQUIN 750MG IV Q48H, WOUND CARE, BILATERAL ARTERIAL DOPPLER, CONTINUE TO MONITOR (2) Pulmonary edema Status: Acute Qualifiers: Chronicity: acute Qualified Code(s): J81.0 - Acute pulmonary edema Plan: FLUID RESTRICTION, SALINE LOCK FLUIDS, DUONEBS, CONTINUE TO MONITOR (3) Infection due to Stenotrophomonas maltophilia Status: Acute Plan: LEVAQUIN 750MG IV Q48H, WOUND CARE, CONTINUE TO MONITOR (4) Staph aureus infection Status: Acute Plan: LEVAQUIN 750MG IV Q48H, WOUND CARE, CONTINUE TO MONITOR (5) Proteus infection Status: Acute Plan: LEVAQUIN 750MG IV Q48H, WOUND CARE, CONTINUE TO MONITOR (6) Shortness of breath Status: Acute Plan: DUONEBS PRN, CONTINUE TO MONITOR (7) Depression Status: Chronic Qualifiers: Depression Type: major depressive disorder Major depression recurrence: recurrent Active/Remission status: remission status unspecified Qualified Code(s): F33.9 - Major depressive disorder, recurrent, unspecified Plan: CONTINUE VENLAFAXINE,CONTINUE TO MONITOR (8) CAD (coronary artery disease) Status: Chronic Qualifiers: Coronary Disease-Associated Artery/Lesion type: [place] artery [place] vs. transplanted heart: [place] heart Associated angina: without angina Qualified Code(s): I25.10 - Atherosclerotic heart disease of [place] coronary artery without angina pectoris Plan: CONTINUE PLAVIX, CONTINUE TO MONITOR (9) Diabetes mellitus, type 2 Status: Chronic Qualifiers: Diabetes mellitus complication status: with hypoglycemia Diabetes mellitus complication detail: without coma Diabetes mellitus usp insulin use: with usp use Qualified Code(s): E11.649 - Type 2 diabetes mellitus with hypoglycemia without coma Plan: HUMULIN R SLIDING SCALE, LANTUS 12UNITS SC HS, MONITOR OTBS, CONTINUE TO MONITOR (10) GERD (gastroesophageal reflux disease) Status: Chronic Qualifiers: Esophagitis presence: with esophagitis Qualified Code(s): K21.0 - Gastro- esophageal reflux disease with esophagitis Plan: CONTINUE PROTONIX, CONTINUE TO MONITOR (11) Hypertension Status: Chronic Qualifiers: Hypertension type: essential hypertension Plan: CONTINUE COREG, CONTINUE TO MONITOR (12) Hyperlipidemia Status: Chronic Qualifiers: Hyperlipidemia type: mixed hyperlipidemia Qualified Code(s): E78.2 - Mixed hyperlipidemia Plan: CONTINUE ZOCOR, CONTINUE TO MONITOR (13) Hypoalbuminemia Status: Acute Plan: ALBUMIN 25% 2 BAGS IV DAILY, CONTINUE TO MONITOR
[2017-07-16] MEDS: NORCO 5/325 MG TAB PO SCH ×4 (03:17→21:30)
[2017-07-16 06:17] LABS: BASOPHILS # (AUTO) 0.1 X10^3/uL (0.0-0.1); BASOPHILS % (AUTO) 0.5 % (0.2-1.0); EOSINOPHILS # (AUTO) 0.3 x10^3/uL (0.0-0.2); EOSINOPHILS % (AUTO) 2.7 % (0.9-2.9); HEMOGLOBIN 8.6 g/dL (12.0-16.0); LYMPHOCYTES # (AUTO) 0.6 X10^3/uL (1.3-2.9); LYMPHOCYTES % (AUTO) 6.5 % (21.0-51.0); MEAN CORPUSCULAR HEMOGLOBIN 30.9 pg (27.0-34.0); MEAN CORPUSCULAR HGB CONC 34.5 g/dL (33.0-35.0); MEAN CORPUSCULAR VOLUME 89.6 fL (80.0-100.0); MEAN PLATELET VOLUME 8.2 fL (7.4-11.0); MONOCYTES # (AUTO) 0.8 x10^3/uL (0.3-0.8); MONOCYTES % (AUTO) 8.2 % (0.0-13.0); NEUTROPHILS # (AUTO) 7.8 x10^3/uL (2.2-4.8); NEUTROPHILS % (AUTO) 82.1 % (42.0-75.0); PLATELET COUNT 242 X10^3/uL (150.0-450.0); RED BLOOD COUNT 2.79 X10^6/uL (3.5-5.4); RED CELL DISTRIBUTION WIDTH 14.7 % (11.6-16.5); WHITE BLOOD COUNT 9.5 X10^3/uL (3.6-10.0)
[2017-07-16 06:41] LABS: ALANINE AMINOTRANSFERASE 23 Units/L (12-78); ALKALINE PHOSPHATASE 80 Units/L (46-116); ASPARTATE AMINO TRANSFERASE 23 Units/L (15-37); BLOOD UREA NITROGEN 34 mg/dL (7-18); CALCIUM 8.9 mg/dL (8.5-10.1); CARBON DIOXIDE 28.1 mmol/L (21-32); CHLORIDE 99 mmol/L (98-107); COR NA(FOR HYPERGLY) 138 mmol/L (136-145); CREATININE 1.62 mg/dL (0.55-1.02); SODIUM 135 mmol/L (136-145); TOTAL PROTEIN 7.1 g/dL (6.4-8.2); eGFR BLACK RACES 39 (>60); eGFR NON BLACK RACES 32 (>60)
--- NOTE | 2017-07-16 08:25 | RAD ---
HISTORY: Shortness of breath. Past medical history diabetes, hypertension, myocardial infarction and CVA. Study: Single-view chest, done portably Comparison: 07/14/2017. Findings: Trachea is midline. There is cardiomegaly with atherosclerotic calcification and uncoiling of the aor tic arch. Some interval improvement is seen with reduction in pulmonary vascular congestion and bilat eral perihilar foci of edema or pneumonia. There are moderate bilateral pleural effusions. Osseous st ructures are intact. IMPRESSION: Cardiomegaly with pulmonary vascular congestion. Interval improvement with reduction in pulmonary vascular congestion and bilateral perihilar foci of edema or pneumonia. Moderate bilateral pleural effusions. Reported By:
[2017-07-16] MEDS: ALBUMIN HUMAN 25%- 100ML 200 ML IV SCH (08:58)
[2017-07-16] MEDS: COREG TAB 3.125 MG PO SCH ×2 (08:58→21:30)
[2017-07-16] MEDS: GENTAMICIN TOPICAL OINT TOP SCH ×2 (08:59→21:31)
[2017-07-16] MEDS: EFFEXOR XR 75 MG CAP PO SCH (08:59)
[2017-07-16] MEDS: NEURONTIN CAP 300 MG PO SCH ×2 (08:59→21:36)
[2017-07-16] MEDS: NYSTATIN POWDER TOP SCH ×2 (09:00→21:31)
[2017-07-16] MEDS: VITAMIN D3 PO SCH (09:00)
[2017-07-16] MEDS: PLAVIX PO SCH (09:00)
[2017-07-16] MEDS: PROTONIX TAB 40 MG PO SCH (09:00)
[2017-07-16] MEDS: DUONEB 0.5 MG/3 MG NEB PRN ×3 (10:20→20:15)
[2017-07-16] MEDS: HumuLIN R SC PRN ×3 (11:51→21:33)
[2017-07-16 15:20] LABS: ABG BASE EXCESS 2.3 mmol/L (-2.0-2.0); ABG HCO3 28.3 mmol/L (22-26)
[2017-07-16 15:58] LABS: BILIRUBIN,URINE NEGATIVE (NEGATIVE); BLOOD/HEMOGLOBIN,URINE 2+ (NEGATIVE); GLUCOSE, URINE 1+ (NEGATIVE); KETONES,URINE NEGATIVE (NEGATIVE); LEUKOCYTE ESTERASE ,URINE 3+ (NEGATIVE); NITRITES,URINE NEGATIVE (NEGATIVE); PROTEIN,URINE 3+ (NEGATIVE); UROBILINOGEN,URINE NORMAL (NORMAL)
[2017-07-16] MEDS ORDERED: LASIX IVP SCH (16:00)
[2017-07-16 16:31] LABS: CREATINE KINASE 37 Units/L (26-192); CREATINE KINASE MB 1.1 ng/mL (0-4.0); TROPONIN I < 0.02 ng/mL (0-1.5)
[2017-07-16 16:49] LABS: APPEARANCE,URINE HAZY (CLEAR); BACTERIA,URINE 1+ /HPF (NEGATIVE); COLOR,URINE YELLOW (YELLOW); RBC,URINE NONE SEEN /HPF (NEGATIVE); SQUAMOUS EPITHELIAL CELL,UR NEGATIVE /HPF (NEGATIVE)
--- NOTE | 2017-07-16 17:04 | RAD ---
HISTORY: Severe shortness of breath Study: Portable chest Comparison: Earlier same day Findings: There is persistent cardiomegaly with bilateral effusions, perihilar opacities and vascular congestio n. There is a rounded density seen in right upper lobe. No pneumothorax identified. IMPRESSION: 1. Cardiomegaly, pulmonary edema, and bilateral effusions. 2. More focal rounded consolidation in the right upper lobe that could represent superimposed pneumon ia, correlate clinically. Reported By:
[2017-07-16] MEDS ORDERED: LASIX IVP STA (17:28)
[2017-07-16] MEDS: LOVENOX INJ 40 MG SYR SC SCH (17:50)
[2017-07-16] MEDS: COLACE CAP 100 MG PO SCH (21:29)
[2017-07-16] MEDS: MILK OF MAGNESIA PO SCH (21:29)
[2017-07-16] MEDS: NEURONTIN CAP 400 MG PO SCH (21:29)
[2017-07-16] MEDS: ZOCOR TAB 40 MG PO SCH (21:30)
[2017-07-16] MEDS: LANTUS SC SCH (21:34)
[2017-07-17] MEDS: NORCO 5/325 MG TAB PO SCH ×4 (03:00→20:47)
[2017-07-17 06:20] LABS: BASOPHILS % (AUTO) 0.6 % (0.2-1.0); EOSINOPHILS # (AUTO) 0.4 x10^3/uL (0.0-0.2); EOSINOPHILS % (AUTO) 4.6 % (0.9-2.9); HEMATOCRIT 24.8 % (36.0-47.0); HEMOGLOBIN 8.4 g/dL (12.0-16.0); LYMPHOCYTES # (AUTO) 0.9 X10^3/uL (1.3-2.9); LYMPHOCYTES % (AUTO) 10.6 % (21.0-51.0); MEAN CORPUSCULAR HEMOGLOBIN 30.9 pg (27.0-34.0); MEAN PLATELET VOLUME 8.4 fL (7.4-11.0); MONOCYTES # (AUTO) 0.8 x10^3/uL (0.3-0.8); MONOCYTES % (AUTO) 9.3 % (0.0-13.0); NEUTROPHILS # (AUTO) 6.4 x10^3/uL (2.2-4.8); NEUTROPHILS % (AUTO) 74.9 % (42.0-75.0); PLATELET COUNT 238 X10^3/uL (150.0-450.0); RED BLOOD COUNT 2.72 X10^6/uL (3.5-5.4); RED CELL DISTRIBUTION WIDTH 14.9 % (11.6-16.5); WHITE BLOOD COUNT 8.5 X10^3/uL (3.6-10.0)
[2017-07-17 06:32] LABS: ALANINE AMINOTRANSFERASE 18 Units/L (12-78); ALBUMIN 3.9 g/dL (3.4-5.0); ALKALINE PHOSPHATASE 71 Units/L (46-116); ASPARTATE AMINO TRANSFERASE 15 Units/L (15-37); BLOOD UREA NITROGEN 43 mg/dL (7-18); CALCIUM 9.2 mg/dL (8.5-10.1); CARBON DIOXIDE 30.9 mmol/L (21-32); CHLORIDE 100 mmol/L (98-107); COR NA(FOR HYPERGLY) 140 mmol/L (136-145); CREATININE 1.52 mg/dL (0.55-1.02); SODIUM 140 mmol/L (136-145); TOTAL PROTEIN 6.8 g/dL (6.4-8.2); eGFR BLACK RACES 42 (>60); eGFR NON BLACK RACES 35 (>60)
--- NOTE | 2017-07-17 08:13 | RAD ---
HISTORY: Shortness of breath Study: Single-view chest, done portably Comparison: 07/16/2017. Findings: Trachea is midline. There is cardiomegaly with atherosclerotic calcification and uncoiling of the aor tic arch. Some improvement in aeration is noted in the right upper lobe. There is still bilateral pul monary opacities representing edema or pneumonia. Bilateral pleural effusions are unchanged. Osseous structures are intact IMPRESSION: Cardiomegaly with pulmonary vascular congestion and bilateral edema or infiltrates. There is some sli ght improvement in aeration in the right lung. Bilateral pleural effusions persist. Reported By:
[2017-07-17] MEDS: ALBUMIN HUMAN 25%- 100ML 200 ML IV SCH (09:01)
[2017-07-17] MEDS: EFFEXOR XR 75 MG CAP PO SCH (09:01)
[2017-07-17] MEDS: COREG TAB 3.125 MG PO SCH ×2 (09:01→20:47)
[2017-07-17] MEDS: LOVENOX INJ 40 MG SYR SC SCH (09:02)
[2017-07-17] MEDS: NEURONTIN CAP 300 MG PO SCH ×2 (09:02→20:50)
[2017-07-17] MEDS: NYSTATIN POWDER TOP SCH ×2 (09:02→20:48)
[2017-07-17] MEDS: PLAVIX PO SCH (09:05)
[2017-07-17] MEDS: PROTONIX TAB 40 MG PO SCH (09:06)
[2017-07-17] MEDS: VITAMIN D3 PO SCH (09:06)
[2017-07-17] MEDS: HumuLIN R SC PRN ×3 (11:34→21:50)
[2017-07-17] MEDS ORDERED: XOPENEX 1.25 MG/3 ML NEBULE NEB PRN (13:41)
[2017-07-17] MEDS: LEVAQUIN PREMIX IV 750 MG 750 MG/150 ML BAG IV SCH (15:07)
[2017-07-17] MEDS: XOPENEX 1.25 MG/3 ML NEBULE NEB SCH ×3 (15:28→20:43)
[2017-07-17] MEDS ORDERED: SALINE 3% 15 ML NEB TX NEB ONE ×2 (16:45→17:00)
[2017-07-17] MEDS ORDERED: SALINE 3% 15 ML NEB TX ONE (16:54)
[2017-07-17] MEDS: COLACE CAP 100 MG PO SCH (20:46)
[2017-07-17] MEDS: MILK OF MAGNESIA PO SCH (20:46)
[2017-07-17] MEDS: ZOCOR TAB 40 MG PO SCH (20:47)
[2017-07-17] MEDS: NEURONTIN CAP 400 MG PO SCH (20:47)
[2017-07-17] MEDS: LANTUS SC SCH (21:52)
[2017-07-18] MEDS: NORCO 5/325 MG TAB PO SCH ×4 (03:00→20:14)
[2017-07-18 05:38] LABS: BASOPHILS % (AUTO) 0.5 % (0.2-1.0); EOSINOPHILS # (AUTO) 0.5 x10^3/uL (0.0-0.2); EOSINOPHILS % (AUTO) 7.7 % (0.9-2.9); HEMATOCRIT 24.7 % (36.0-47.0); HEMOGLOBIN 8.4 g/dL (12.0-16.0); LYMPHOCYTES # (AUTO) 0.9 X10^3/uL (1.3-2.9); LYMPHOCYTES % (AUTO) 15.2 % (21.0-51.0); MEAN CORPUSCULAR HEMOGLOBIN 30.7 pg (27.0-34.0); MEAN CORPUSCULAR VOLUME 90.3 fL (80.0-100.0); MEAN PLATELET VOLUME 7.9 fL (7.4-11.0); MONOCYTES # (AUTO) 0.5 x10^3/uL (0.3-0.8); MONOCYTES % (AUTO) 8.2 % (0.0-13.0); NEUTROPHILS # (AUTO) 4.2 x10^3/uL (2.2-4.8); NEUTROPHILS % (AUTO) 68.4 % (42.0-75.0); PLATELET COUNT 244 X10^3/uL (150.0-450.0); RED BLOOD COUNT 2.74 X10^6/uL (3.5-5.4); RED CELL DISTRIBUTION WIDTH 14.7 % (11.6-16.5); WHITE BLOOD COUNT 6.2 X10^3/uL (3.6-10.0)
[2017-07-18 05:47] LABS: ALANINE AMINOTRANSFERASE 16 Units/L (12-78); ALBUMIN 3.9 g/dL (3.4-5.0); ALKALINE PHOSPHATASE 61 Units/L (46-116); CALCIUM 8.8 mg/dL (8.5-10.1); CARBON DIOXIDE 31.7 mmol/L (21-32); CHLORIDE 106 mmol/L (98-107); CREATININE 1.68 mg/dL (0.55-1.02); SODIUM 136 mmol/L (136-145); TOTAL PROTEIN 6.7 g/dL (6.4-8.2); eGFR BLACK RACES 38 (>60); eGFR NON BLACK RACES 31 (>60)
[2017-07-18 05:57] LABS: ASPARTATE AMINO TRANSFERASE 12 Units/L (15-37); BLOOD UREA NITROGEN 48 mg/dL (7-18)
[2017-07-18] MEDS: XOPENEX 1.25 MG/3 ML NEBULE NEB SCH ×4 (09:14→20:39)
[2017-07-18] MEDS: ALBUMIN HUMAN 25%- 100ML 200 ML IV SCH (09:19)
[2017-07-18] MEDS: LOVENOX INJ 40 MG SYR SC SCH (09:24)
[2017-07-18] MEDS: PLAVIX PO SCH (09:25)
[2017-07-18] MEDS: VITAMIN D3 PO SCH (09:26)
[2017-07-18] MEDS: EFFEXOR XR 75 MG CAP PO SCH (09:26)
[2017-07-18] MEDS: PROTONIX TAB 40 MG PO SCH (09:26)
[2017-07-18] MEDS: COREG TAB 3.125 MG PO SCH ×2 (09:26→20:13)
[2017-07-18] MEDS: NYSTATIN POWDER TOP SCH ×2 (09:27→20:15)
[2017-07-18] MEDS: NEURONTIN CAP 300 MG PO SCH ×2 (09:45→20:17)
[2017-07-18] MEDS ORDERED: BUTT CREAM (COMPOUND) ONE (10:58)
[2017-07-18] MEDS: HumuLIN R SC PRN ×2 (17:23→20:15)
--- NOTE | 2017-07-18 19:44 | RAD ---
HISTORY: Pain, foot ulcer Study: Left foot series Comparison: None Findings: The bones are severely osteopenic. There is mild joint space narrowing throughout the digits. No frac ture or dislocation is seen. The tarsal bones are intact. No erosions are seen. There is no periostea l reaction. There are calcifications seen in the Achilles tendon distally. There are vascular calcifi cations anteriorly. IMPRESSION: Jerf-lu-[id number] degenerative changes throughout the digits and diffuse severe osteopenia with no acu te bony abnormality seen. Probable calcifications along the Achilles tendon distally. Recommend clinical follow-up Reported By:
[2017-07-18] MEDS: NEURONTIN CAP 400 MG PO SCH (20:13)
[2017-07-18] MEDS: ZOCOR TAB 40 MG PO SCH (20:14)
[2017-07-18] MEDS: LANTUS SC SCH (20:14)
[2017-07-18] MEDS: COLACE CAP 100 MG PO SCH (20:15)
[2017-07-18] MEDS: MILK OF MAGNESIA PO SCH (20:15)
[2017-07-19] MEDS: NORCO 5/325 MG TAB PO SCH ×4 (04:15→21:00)
[2017-07-19 05:32] LABS: ALANINE AMINOTRANSFERASE 13 Units/L (12-78); ALBUMIN 4.3 g/dL (3.4-5.0); ALKALINE PHOSPHATASE 60 Units/L (46-116); ASPARTATE AMINO TRANSFERASE 9 Units/L (15-37); BLOOD UREA NITROGEN 43 mg/dL (7-18); CALCIUM 9.4 mg/dL (8.5-10.1); CARBON DIOXIDE 31.2 mmol/L (21-32); CHLORIDE 101 mmol/L (98-107); COR NA(FOR HYPERGLY) 141 mmol/L (136-145); CREATININE 1.42 mg/dL (0.55-1.02); SODIUM 140 mmol/L (136-145); TOTAL PROTEIN 7.1 g/dL (6.4-8.2); eGFR BLACK RACES 46 (>60); eGFR NON BLACK RACES 38 (>60)
[2017-07-19 05:46] LABS: BASOPHILS % (AUTO) 0.7 % (0.2-1.0); EOSINOPHILS # (AUTO) 0.6 x10^3/uL (0.0-0.2); EOSINOPHILS % (AUTO) 8.1 % (0.9-2.9); HEMATOCRIT 27.6 % (36.0-47.0); HEMOGLOBIN 9.2 g/dL (12.0-16.0); LYMPHOCYTES # (AUTO) 0.8 X10^3/uL (1.3-2.9); LYMPHOCYTES % (AUTO) 12.1 % (21.0-51.0); MEAN CORPUSCULAR HEMOGLOBIN 30.3 pg (27.0-34.0); MEAN CORPUSCULAR HGB CONC 33.2 g/dL (33.0-35.0); MEAN CORPUSCULAR VOLUME 91.2 fL (80.0-100.0); MEAN PLATELET VOLUME 7.8 fL (7.4-11.0); MONOCYTES # (AUTO) 0.6 x10^3/uL (0.3-0.8); MONOCYTES % (AUTO) 8.3 % (0.0-13.0); NEUTROPHILS % (AUTO) 70.8 % (42.0-75.0); PLATELET COUNT 276 X10^3/uL (150.0-450.0); RED BLOOD COUNT 3.02 X10^6/uL (3.5-5.4)
--- NOTE | 2017-07-19 07:37 | RAD ---
HISTORY: Shortness of breath Study: Chest AP portable Comparison: 07/17/2017 Findings: The heart remains enlarged. There has been significant improvement in the perihilar infiltrates noted on the prior examination likely representing improving congestive heart failure. Mild perihilar infi ltrates remain in the upper lobes bilaterally. The lower lobes are clear. Bilateral pleural effusions appear to be present. The bony thorax is unremarkable. IMPRESSION: Cardiomegaly with improving congestive heart failure and unchanged pleural effusions Reported By:
--- NOTE | 2017-07-19 07:57 | CT ---
HISTORY: Diabetic ulcer left great toe Study: CT left foot without contrast Comparison: Plain films 07/17/2017 Technique: Axial noncontrast images with coronal and sagittal reformats. Dose reduction procedures we re used with mA/kv adjusted for body size. Findings: The bones are osteopenic. There is no definite evidence for visible fracture, lytic, or blastic lesio n. No abnormal periosteal reaction is identified. Specifically there is no evidence for abnormal prabhu osteal reaction or septic arthritis in the great toe. There is some degenerative joint disease in the 1st MTP joint and in the midfoot. It should be noted that noncontrast CT is not a sensitive examinat ion for the determination of osteomyelitis and if osteomyelitis is suspected MRI with and without con trast would be of further diagnostic value. 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
[2017-07-19] MEDS: ALBUMIN HUMAN 25%- 100ML 200 ML IV SCH (08:25)
[2017-07-19] MEDS: XOPENEX 1.25 MG/3 ML NEBULE NEB SCH ×4 (08:25→20:57)
[2017-07-19] MEDS: COREG TAB 3.125 MG PO SCH ×2 (08:25→20:43)
[2017-07-19] MEDS ORDERED: LR 1000 ML IV 1,000 ML IV ONE (09:28)
[2017-07-19] MEDS: EFFEXOR XR 75 MG CAP PO SCH (10:05)
[2017-07-19] MEDS: VITAMIN D3 PO SCH (10:06)
[2017-07-19] MEDS: LASIX IVP SCH ×3 (10:06→20:43)
[2017-07-19] MEDS: NYSTATIN POWDER TOP SCH ×2 (10:07→21:00)
[2017-07-19] MEDS: PLAVIX PO SCH (10:07)
[2017-07-19] MEDS: NEURONTIN CAP 300 MG PO SCH ×2 (10:07→20:43)
[2017-07-19] MEDS: PROTONIX TAB 40 MG PO SCH (10:07)
[2017-07-19] MEDS: LOVENOX INJ 40 MG SYR SC SCH (10:08)
[2017-07-19] MEDS ORDERED: NS 1000 ML 1,000 ML ONE (10:48)
--- NOTE | 2017-07-19 10:51 | PCM.PROG ---
Progress Note - Progress Note for Day of Date: 07/15/17 - Subjective Subjective: WAS ADMITTED FOR A DIABETIC ULCER TO THE LEFT FOOT AND THE RIGHT ANKLE. TODAY, SHE IS ALERT AND ORIENTED, LYING IN BED ON MORNING ROUNDS. SHE CONTINUES WITH COMPLAINTS OF PAIN TO THE LEFT FOOT AND SHORTNESS OF BREATH. ON EXAMINATION, LUNG SOUNDS ARE NOTED TO BE DIMINISHED THROUGHOUT. ABDOMEN IS SOFT, ROUND, AND NON-TENDER WITH NORMAL BOWEL SOUNDS NOTED IN ALL QUADRANTS. HER VITALS SIGNS THIS MORNING ARE 99.2-76-18-92%-138/46. ABNORMAL LAB VALUES THIS MORNING INCLUDE THE FOLLOWING: WBC 10.3, RBC 2.71, HGB 8.4, HCT 24.7, POTASSIUM 5.5, BUN 30, CREATININE 1.55, GFR 34, GLUCOSE 146. PATIENT WAS HEPLOCKED, PLACED ON FLUID RESTRICTION, AND GIVEN LASIX YESTERDAY DUE TO DYSPNEA , AND FINDINGS OF MODERATED PULMONARY EDEMA ON CHEST XRAY. SHE REPORTS FEELING LESS SHORT OF BREATH TODAY. TODAY, WE WILL CONTINUE WITH LASIX. CTA OF THE LOWER EXTREMITIES WAS CANCELLED DUE TO LOW KIDNEY FUNCTION. WE WILL CONTINUE WITH CURRENT PLAN OF CARE TODAY. WE PLAN TO FOLLOW UP WITH AM LABS AND CONTINUE TO MONITOR PATIENT. - Past Medical Family Social History Past Med/Fam/Surg Hx: No changes since H&P Allergies: Allergies ezetimibe [From Zetia] Allergy (Verified 07/08/17 18:25) Influenza Virus Vaccines Allergy (Verified 07/08/17 18:25) Penicillins Allergy (Verified 07/08/17 18:25) pneumococcal vaccine Allergy (Verified 07/08/17 18:25) ropinirole [From Requip] Allergy (Verified 07/08/17 18:25) - Review of Systems ROS: No change since H&P - Vital Signs and I&O's Vital Signs: Temperature 9737 F Pulse Rate [Right Brachial] 79 Pulse Rate [Left Brachial] 76 Pulse Rate 77 Respiratory Rate 20 Blood Pressure [Left Arm] 153/65 Blood Pressure [Right Arm] 181/74 Blood Pressure 168/70 O2 Sat by Pulse Oximetry 95 Intake and Output: Intake & Output 07/16/17 07/17/17 07/18/17 07/19/17 11:59 11:59 11:59 11:59 Intake Total 1040 1070 1250 1040 Output Total 3400 1000 1900 Balance 1040 -2330 250 -860 - Physical Exam Oriented: Normal Eyes: Normal Ear: Normal Nose: Normal Throat: Normal Respiratory: Generalized, Diminished Cardiovascular: Normal : Normal Auscultation: Bowel Sounds: Normal Palpation: Normal Tenderness: Normal Skin: Red, Tender (LEFT FOOT, RIGHT ANKLE ), Wound Musculoskeletal: Left, Foot, Swelling, Tender, Instability Psychiatric: Normal Mood Description: Calm Affect: Normal Speech Pattern: Clear, Appropriate - Laboratory and Diagnostics Result Diagrams: 07/19/17 04:00 07/19/17 04:00 Labs: 07/16/17 15:44 Urine,Catheterized Urine Culture - Final 07/17/17 17:07 Sputum - Expectorated Sputum Sputum Culture - Final 07/17/17 17:07 Sputum - Expectorated Sputum - Final 07/08/17 17:12 Blood Blood Culture - Final 07/08/17 17:17 Blood Blood Culture - Final 07/08/17 18:12 Foot - Left Gram Stain - Final 07/08/17 18:12 Foot - Left Wound Culture - Final Proteus Mirabilis Staphylococcus Aureus Stenotrophomonas Maltophilia 07/09/17 10:20 Urine,Clean Catch Urine Culture - Final Laboratory WBC 7.0 X10^3/uL (3.6-10.0) 07/19/17 04:00 RBC 3.02 X10^6/uL (3.5-5.4) L 07/19/17 04:00 Hgb 9.2 g/dL (12.0-16.0) L 07/19/17 04:00 Hct 27.6 % (36.0-47.0) L 07/19/17 04:00 MCV 91.2 fL (80.0-100.0) 07/19/17 04:00 MCH 30.3 pg (27.0-34.0) 07/19/17 04:00 MCHC 33.2 g/dL (33.0-35.0) 07/19/17 04:00 RDW 15.0 % (11.6-16.5) 07/19/17 04:00 Plt Count 276 X10^3/uL (150.0-450.0) 07/19/17 04:00 MPV 7.8 fL (7.4-11.0) 07/19/17 04:00 Neut % 70.8 % (42.0-75.0) 07/19/17 04:00 Lymph % 12.1 % (21.0-51.0) L 07/19/17 04:00 [place] % 8.3 % (0.0-13.0) 07/19/17 04:00 Eos % 8.1 % (0.9-2.9) H 07/19/17 04:00 Baso % 0.7 % (0.2-1.0) 07/19/17 04:00 Neut # 5.0 x10^3/uL (2.2-4.8) H 07/19/17 04:00 Lymph # 0.8 X10^3/uL (1.3-2.9) L 07/19/17 04:00 [place] # 0.6 x10^3/uL (0.3-0.8) 07/19/17 04:00 Eos # 0.6 x10^3/uL (0.0-0.2) H 07/19/17 04:00 Baso # 0.0 X10^3/uL (0.0-0.1) 07/19/17 04:00 Absolute Nucleated RBC 0.1 /100WBC 07/19/17 04:00 ESR 52 MM/HOUR (0-20) H 07/16/17 05:25 INR Target Range - 07/08/17 17:12 INR 1.07 (0.8-1.3) 07/08/17 17:12 Sample Site Right brachial 07/16/17 15:06 ABG pH 7.370 (7.35-7.45) 07/16/17 15:06 ABG pCO2 49.0 mmHg (35.0-45.0) H 07/16/17 15:06 ABG pO2 49.0 mmHg (80.0-100.0) L* 07/16/17 15:06 ABG HCO3 28.3 mmol/L (22-26) H 07/16/17 15:06 ABG O2 Saturation 83.0 % (90-100) L* 07/16/17 15:06 ABG Base Excess 2.3 mmol/L (-2.0-2.0) H 07/16/17 15:06 Mart Test Na 07/16/17 15:06 A-a Gradient 118.0 mmHg 07/16/17 15:06 FiO2 32.000 07/16/17 15:06 Blood Gas Comments Germaine well aw 07/16/17 15:06 Sodium 140 mmol/L (136-145) 07/19/17 04:00 Corrected Sodium 141 mmol/L (136-145) 07/19/17 04:00 Potassium 4.6 mmol/L (3.5-5.1) 07/19/17 04:00 Chloride 101 mmol/L (98-107) 07/19/17 04:00 Carbon Dioxide 31.2 mmol/L (21-32) 07/19/17 04:00 BUN 43 mg/dL (7-18) H 07/19/17 04:00 Creatinine 1.42 mg/dL (0.55-1.02) H 07/19/17 04:00 Est GFR (MDRD) Af Amer 46 (>60) L 07/19/17 04:00 Est GFR (MDRD) Non-Af 38 (>60) L 07/19/17 04:00 Glucose 155 mg/dL (65-99) H 07/19/17 04:00 POC Glucose (mg/dL) 152 mg/dL (65-99) H 07/19/17 05:50 Calcium 9.4 mg/dL (8.5-10.1) 07/19/17 04:00 Corrected Calcium TNP 07/19/17 04:00 Total Bilirubin 0.50 mg/dL (0.2-1.0) 07/19/17 04:00 AST 9 Units/L (15-37) L 07/19/17 04:00 ALT 13 Units/L (12-78) 07/19/17 04:00 Alkaline Phosphatase 60 Units/L (46-116) 07/19/17 04:00 Creatine Kinase 37 Units/L (26-192) 07/16/17 16:02 CK-MB (CK-2) 1.1 ng/mL (0-4.0) 07/16/17 16:02 CK/CKMB % Calc 3.0 % (<4) 07/16/17 16:02 Troponin I < 0.02 ng/mL (0-1.5) 07/16/17 16:02 C-Reactive Protein 131.20 mg/L (0-3.0) H 07/16/17 05:25 Total Protein 7.1 g/dL (6.4-8.2) 07/19/17 04:00 Albumin 4.3 g/dL (3.4-5.0) 07/19/17 04:00 Globulin 2.8 g/dL (2.5-4.5) 07/19/17 04:00 Albumin/Globulin Ratio 1.5 Ratio (1.1-2.1) 07/19/17 04:00 Specimen Type Catherized urine 07/16/17 15:44 Urine Color Yellow (YELLOW) 07/16/17 15:44 Urine Appearance Hazy (CLEAR) 07/16/17 15:44 Urine pH 5.0 (5.0 - 8.0) 07/16/17 15:44 Ur Specific [place] 1.015 (1.000-1.030) 07/16/17 15:44 Urine Protein 3+ (NEGATIVE) 07/16/17 15:44 Urine Glucose (UA) 1+ (NEGATIVE) 07/16/17 15:44 Urine Ketones Negative (NEGATIVE) 07/16/17 15:44 Urine Occult Blood 2+ (NEGATIVE) 07/16/17 15:44 Urine Nitrite Negative (NEGATIVE) 07/16/17 15:44 Urine Bilirubin Negative (NEGATIVE) 07/16/17 15:44 Urine Urobilinogen Normal (NORMAL) 07/16/17 15:44 Ur Leukocyte Esterase 3+ (NEGATIVE) 07/16/17 15:44 Urine RBC None seen /HPF (NEGATIVE) 07/16/17 15:44 Urine WBC Tntc /HPF (NEGATIVE) 07/16/17 15:44 Ur Squamous Epith Cells Negative /HPF (NEGATIVE) 07/16/17 15:44 Amorphous Sediment Trace /HPF (NEGATIVE) 07/09/17 10:20 Urine Bacteria 1+ /HPF (NEGATIVE) 07/16/17 15:44 Urine Mucus Few /HPF (NEGATIVE) 07/09/17 10:20 Ur Culture Indicated? Yes/culture set up 07/16/17 15:44 Influenza Type A (PCR) Negative (NEGATIVE) 07/14/17 15:07 Influenza Type B (PCR) Negative (NEGATIVE) 07/14/17 15:07 - Plan (1) Diabetic ulcer of left great toe Status: Acute Plan: LEVAQUIN 750MG IV Q48H, WOUND CARE, BILATERAL ARTERIAL DOPPLER, CONTINUE TO MONITOR (2) Pulmonary edema Status: Acute Qualifiers: Chronicity: acute Qualified Code(s): J81.0 - Acute pulmonary edema Plan: LASIX 20MG IV Q12H, FLUID RESTRICTION, SALINE LOCK FLUIDS, DUONEBS, CONTINUE TO MONITOR (3) Infection due to Stenotrophomonas maltophilia Status: Acute Plan: LEVAQUIN 750MG IV Q48H, WOUND CARE, CONTINUE TO MONITOR (4) Staph aureus infection Status: Acute Plan: LEVAQUIN 750MG IV Q48H, WOUND CARE, CONTINUE TO MONITOR (5) Proteus infection Status: Acute Plan: LEVAQUIN 750MG IV Q48H, WOUND CARE, CONTINUE TO MONITOR (6) Shortness of breath Status: Acute Plan: LASIX 20MG IV Q12H, DUONEBS PRN, SUPPLEMENTAL OXYGEN, CONTINUE TO MONITOR (7) Depression Status: Chronic Qualifiers: Depression Type: major depressive disorder Major depression recurrence: recurrent Active/Remission status: remission status unspecified Qualified Code(s): F33.9 - Major depressive disorder, recurrent, unspecified Plan: CONTINUE VENLAFAXINE,CONTINUE TO MONITOR (8) CAD (coronary artery disease) Status: Chronic Qualifiers: Coronary Disease-Associated Artery/Lesion type: [place] artery [place] vs. transplanted heart: [place] heart Associated angina: without angina Qualified Code(s): I25.10 - Atherosclerotic heart disease of [place] coronary artery without angina pectoris Plan: CONTINUE PLAVIX, CONTINUE TO MONITOR (9) Diabetes mellitus, type 2 Status: Chronic Qualifiers: Diabetes mellitus complication status: with hypoglycemia Diabetes mellitus complication detail: without coma Diabetes mellitus alf insulin use: with alf use Qualified Code(s): E11.649 - Type 2 diabetes mellitus with hypoglycemia without coma Plan: HUMULIN R SLIDING SCALE, LANTUS 12UNITS SC HS, MONITOR OTBS, CONTINUE TO MONITOR (10) GERD (gastroesophageal reflux disease) Status: Chronic Qualifiers: Esophagitis presence: with esophagitis Qualified Code(s): K21.0 - Gastro- esophageal reflux disease with esophagitis Plan: CONTINUE PROTONIX, CONTINUE TO MONITOR (11) Hypertension Status: Chronic Qualifiers: Hypertension type: essential hypertension Plan: CONTINUE COREG, CONTINUE TO MONITOR (12) Hyperlipidemia Status: Chronic Qualifiers: Hyperlipidemia type: mixed hyperlipidemia Qualified Code(s): E78.2 - Mixed hyperlipidemia Plan: CONTINUE ZOCOR, CONTINUE TO MONITOR (13) Hypoalbuminemia Status: Acute Plan: ALBUMIN 25% 2 BAGS IV DAILY, CONTINUE TO MONITOR
--- NOTE | 2017-07-19 11:06 | PCM.PROG ---
Progress Note - Progress Note for Day of Date: 07/16/17 - Subjective Subjective: WAS ADMITTED FOR A DIABETIC ULCER TO THE LEFT FOOT AND THE RIGHT ANKLE. TODAY, SHE IS ALERT AND ORIENTED, LYING IN BED ON MORNING ROUNDS. SHE CONTINUES WITH COMPLAINTS OF PAIN TO THE LEFT FOOT AND SHORTNESS OF BREATH. ON EXAMINATION, LUNG SOUNDS ARE NOTED WITH WHEEZING THROUGHOUT, DIMINISHED. ABDOMEN IS SOFT, ROUND, AND NON-TENDER WITH NORMAL BOWEL SOUNDS NOTED IN ALL QUADRANTS. HER VITALS SIGNS THIS MORNING ARE 97.5-91-20-95%-143/ 71. ABNORMAL LAB VALUES THIS MORNING INCLUDE THE FOLLOWING: RBC 2.79, HGB 8.6, HCT 25.0, SODIUM 135, BUN 34, CREATININE 1.62, GFR 32, GLUCOSE 210, ESR 52, CRP 131.20. THIS AFTERNOON, STAFF REPORTED THAT PATIENT WAS NOTED WITH SEVERE DYSPNEA WHILE SITTING UP IN THE BED. OXYGEN SATURATIONS WERE NOTED TO BE 82% ON 3LITERS VIA NASAL CANNULA. PATIENT REPORTED BEING UNABLE TO TAKE DEEP BREATHS. SHE WAS PLACED ON VENTIMASK AT 50%. AN INCREASE IN OXYGEN SATURATIONS WERE NOTED AT 85-89%. AN ABG, CHEST XRAY, AND EKG WERE OBTAINED. ABG REPORTED PH 7.370, PC02 49, P02 49, HC03 28.3, ABG 02 83, BASE EXCESS 2.3. CHEST XRAY REPORTED CARDIOMEGALY, PULMONARY EDEMA, AND BILATERAL PLEURAL EFFUSIONS. MORE FOCAL ROUNDED CONSOLIDATION IN THE RIGHT UPPER LOBE THAT COULD REPRESENT SUPERIMPOSED PNEUMONIA, CORRELATE CLINICALLY. EKG REPORTE SINUS TACHYCARDIA WITH HR 96, VENTRICULAR BIGEMINY. A AGUILAR CATHETER WAS INSERTED AND 700ML URINE WAS NOTED ON RETURN. PATIENT WAS THEN STARTED ON BIPAP WITH SETTINGS 10/14, 18. OXYGEN SATURATIONS INCREASED TO 96%. PATIENT WAS GIVEN LASIX 20MG IV. WE WILL CONTINUE TO MONITOR PATIENT. WE PLAN TO FOLLOW UP WITH AM LABS AND CHEST XRAY. - Past Medical Family Social History Past Med/Fam/Surg Hx: No changes since H&P Allergies: Allergies ezetimibe [From Zetia] Allergy (Verified 07/08/17 18:25) Influenza Virus Vaccines Allergy (Verified 07/08/17 18:25) Penicillins Allergy (Verified 07/08/17 18:25) pneumococcal vaccine Allergy (Verified 07/08/17 18:25) ropinirole [From Requip] Allergy (Verified 07/08/17 18:25) - Review of Systems ROS: No change since H&P - Vital Signs and I&O's Vital Signs: Temperature 9737 F Pulse Rate [Right Brachial] 79 Pulse Rate [Left Brachial] 76 Pulse Rate 77 Respiratory Rate 20 Blood Pressure [Left Arm] 153/65 Blood Pressure [Right Arm] 181/74 Blood Pressure 168/70 O2 Sat by Pulse Oximetry 95 Intake and Output: Intake & Output 07/16/17 07/17/17 07/18/17 07/19/17 11:59 11:59 11:59 11:59 Intake Total 1040 1070 1250 1040 Output Total 3400 1000 1900 Balance 1040 -2330 250 -860 - Physical Exam Oriented: Normal Eyes: Normal Ear: Normal Nose: Normal Throat: Normal Respiratory: Generalized, Diminished, Wheezes Cardiovascular: Tachycardia : Normal Auscultation: Bowel Sounds: Normal Palpation: Normal Tenderness: Normal Skin: Red, Tender (LEFT FOOT, RIGHT ANKLE ), Wound Musculoskeletal: Left, Foot, Swelling, Tender, Instability Psychiatric: Normal Mood Description: Calm Affect: Normal Speech Pattern: Clear, Appropriate - Laboratory and Diagnostics Result Diagrams: 07/19/17 04:00 07/19/17 04:00 Labs: 07/16/17 15:44 Urine,Catheterized Urine Culture - Final 07/17/17 17:07 Sputum - Expectorated Sputum Sputum Culture - Final 07/17/17 17:07 Sputum - Expectorated Sputum - Final 07/08/17 17:12 Blood Blood Culture - Final 07/08/17 17:17 Blood Blood Culture - Final 07/08/17 18:12 Foot - Left Gram Stain - Final 07/08/17 18:12 Foot - Left Wound Culture - Final Proteus Mirabilis Staphylococcus Aureus Stenotrophomonas Maltophilia 07/09/17 10:20 Urine,Clean Catch Urine Culture - Final Laboratory WBC 7.0 X10^3/uL (3.6-10.0) 07/19/17 04:00 RBC 3.02 X10^6/uL (3.5-5.4) L 07/19/17 04:00 Hgb 9.2 g/dL (12.0-16.0) L 07/19/17 04:00 Hct 27.6 % (36.0-47.0) L 07/19/17 04:00 MCV 91.2 fL (80.0-100.0) 07/19/17 04:00 MCH 30.3 pg (27.0-34.0) 07/19/17 04:00 MCHC 33.2 g/dL (33.0-35.0) 07/19/17 04:00 RDW 15.0 % (11.6-16.5) 07/19/17 04:00 Plt Count 276 X10^3/uL (150.0-450.0) 07/19/17 04:00 MPV 7.8 fL (7.4-11.0) 07/19/17 04:00 Neut % 70.8 % (42.0-75.0) 07/19/17 04:00 Lymph % 12.1 % (21.0-51.0) L 07/19/17 04:00 [place] % 8.3 % (0.0-13.0) 07/19/17 04:00 Eos % 8.1 % (0.9-2.9) H 07/19/17 04:00 Baso % 0.7 % (0.2-1.0) 07/19/17 04:00 Neut # 5.0 x10^3/uL (2.2-4.8) H 07/19/17 04:00 Lymph # 0.8 X10^3/uL (1.3-2.9) L 07/19/17 04:00 [place] # 0.6 x10^3/uL (0.3-0.8) 07/19/17 04:00 Eos # 0.6 x10^3/uL (0.0-0.2) H 07/19/17 04:00 Baso # 0.0 X10^3/uL (0.0-0.1) 07/19/17 04:00 Absolute Nucleated RBC 0.1 /100WBC 07/19/17 04:00 ESR 52 MM/HOUR (0-20) H 07/16/17 05:25 INR Target Range - 07/08/17 17:12 INR 1.07 (0.8-1.3) 07/08/17 17:12 Sample Site Right brachial 07/16/17 15:06 ABG pH 7.370 (7.35-7.45) 07/16/17 15:06 ABG pCO2 49.0 mmHg (35.0-45.0) H 07/16/17 15:06 ABG pO2 49.0 mmHg (80.0-100.0) L* 07/16/17 15:06 ABG HCO3 28.3 mmol/L (22-26) H 07/16/17 15:06 ABG O2 Saturation 83.0 % (90-100) L* 07/16/17 15:06 ABG Base Excess 2.3 mmol/L (-2.0-2.0) H 07/16/17 15:06 Mart Test Na 07/16/17 15:06 A-a Gradient 118.0 mmHg 07/16/17 15:06 FiO2 32.000 07/16/17 15:06 Blood Gas Comments Germaine well aw 07/16/17 15:06 Sodium 140 mmol/L (136-145) 07/19/17 04:00 Corrected Sodium 141 mmol/L (136-145) 07/19/17 04:00 Potassium 4.6 mmol/L (3.5-5.1) 07/19/17 04:00 Chloride 101 mmol/L (98-107) 07/19/17 04:00 Carbon Dioxide 31.2 mmol/L (21-32) 07/19/17 04:00 BUN 43 mg/dL (7-18) H 07/19/17 04:00 Creatinine 1.42 mg/dL (0.55-1.02) H 07/19/17 04:00 Est GFR (MDRD) Af Amer 46 (>60) L 07/19/17 04:00 Est GFR (MDRD) Non-Af 38 (>60) L 07/19/17 04:00 Glucose 155 mg/dL (65-99) H 07/19/17 04:00 POC Glucose (mg/dL) 152 mg/dL (65-99) H 07/19/17 05:50 Calcium 9.4 mg/dL (8.5-10.1) 07/19/17 04:00 Corrected Calcium TNP 07/19/17 04:00 Total Bilirubin 0.50 mg/dL (0.2-1.0) 07/19/17 04:00 AST 9 Units/L (15-37) L 07/19/17 04:00 ALT 13 Units/L (12-78) 07/19/17 04:00 Alkaline Phosphatase 60 Units/L (46-116) 07/19/17 04:00 Creatine Kinase 37 Units/L (26-192) 07/16/17 16:02 CK-MB (CK-2) 1.1 ng/mL (0-4.0) 07/16/17 16:02 CK/CKMB % Calc 3.0 % (<4) 07/16/17 16:02 Troponin I < 0.02 ng/mL (0-1.5) 07/16/17 16:02 C-Reactive Protein 131.20 mg/L (0-3.0) H 07/16/17 05:25 Total Protein 7.1 g/dL (6.4-8.2) 07/19/17 04:00 Albumin 4.3 g/dL (3.4-5.0) 07/19/17 04:00 Globulin 2.8 g/dL (2.5-4.5) 07/19/17 04:00 Albumin/Globulin Ratio 1.5 Ratio (1.1-2.1) 07/19/17 04:00 Specimen Type Catherized urine 07/16/17 15:44 Urine Color Yellow (YELLOW) 07/16/17 15:44 Urine Appearance Hazy (CLEAR) 07/16/17 15:44 Urine pH 5.0 (5.0 - 8.0) 07/16/17 15:44 Ur Specific [place] 1.015 (1.000-1.030) 07/16/17 15:44 Urine Protein 3+ (NEGATIVE) 07/16/17 15:44 Urine Glucose (UA) 1+ (NEGATIVE) 07/16/17 15:44 Urine Ketones Negative (NEGATIVE) 07/16/17 15:44 Urine Occult Blood 2+ (NEGATIVE) 07/16/17 15:44 Urine Nitrite Negative (NEGATIVE) 07/16/17 15:44 Urine Bilirubin Negative (NEGATIVE) 07/16/17 15:44 Urine Urobilinogen Normal (NORMAL) 07/16/17 15:44 Ur Leukocyte Esterase 3+ (NEGATIVE) 07/16/17 15:44 Urine RBC None seen /HPF (NEGATIVE) 07/16/17 15:44 Urine WBC Tntc /HPF (NEGATIVE) 07/16/17 15:44 Ur Squamous Epith Cells Negative /HPF (NEGATIVE) 07/16/17 15:44 Amorphous Sediment Trace /HPF (NEGATIVE) 07/09/17 10:20 Urine Bacteria 1+ /HPF (NEGATIVE) 07/16/17 15:44 Urine Mucus Few /HPF (NEGATIVE) 07/09/17 10:20 Ur Culture Indicated? Yes/culture set up 07/16/17 15:44 Influenza Type A (PCR) Negative (NEGATIVE) 07/14/17 15:07 Influenza Type B (PCR) Negative (NEGATIVE) 07/14/17 15:07 - Plan (1) Diabetic ulcer of left great toe Status: Acute Plan: LEVAQUIN 750MG IV Q48H, WOUND CARE, BILATERAL ARTERIAL DOPPLER, CONTINUE TO MONITOR (2) Pulmonary edema Status: Acute Qualifiers: Chronicity: acute Qualified Code(s): J81.0 - Acute pulmonary edema Plan: BIPAP, SUPPLEMENTAL OXYGEN, LASIX 20MG IV Q12H, FLUID RESTRICTION, SALINE LOCK FLUIDS, AGUILAR CATHETER, DUONEBS, CONTINUE TO MONITOR (3) Infection due to Stenotrophomonas maltophilia Status: Acute Plan: LEVAQUIN 750MG IV Q48H, WOUND CARE, CONTINUE TO MONITOR (4) Staph aureus infection Status: Acute Plan: LEVAQUIN 750MG IV Q48H, WOUND CARE, CONTINUE TO MONITOR (5) Proteus infection Status: Acute Plan: LEVAQUIN 750MG IV Q48H, WOUND CARE, CONTINUE TO MONITOR (6) Shortness of breath Status: Acute Plan: BIPAP, LASIX 20MG IV Q12H, DUONEBS PRN, SUPPLEMENTAL OXYGEN, CONTINUE TO MONITOR (7) Depression Status: Chronic Qualifiers: Depression Type: major depressive disorder Major depression recurrence: recurrent Active/Remission status: remission status unspecified Qualified Code(s): F33.9 - Major depressive disorder, recurrent, unspecified Plan: CONTINUE VENLAFAXINE,CONTINUE TO MONITOR (8) CAD (coronary artery disease) Status: Chronic Qualifiers: Coronary Disease-Associated Artery/Lesion type: [place] artery [place] vs. transplanted heart: [place] heart Associated angina: without angina Qualified Code(s): I25.10 - Atherosclerotic heart disease of [place] coronary artery without angina pectoris Plan: CONTINUE PLAVIX, CONTINUE TO MONITOR (9) Diabetes mellitus, type 2 Status: Chronic Qualifiers: Diabetes mellitus complication status: with hypoglycemia Diabetes mellitus complication detail: without coma Diabetes mellitus intermediate insulin use: with intermediate use Qualified Code(s): E11.649 - Type 2 diabetes mellitus with hypoglycemia without coma Plan: HUMULIN R SLIDING SCALE, LANTUS 12UNITS SC HS, MONITOR OTBS, CONTINUE TO MONITOR (10) GERD (gastroesophageal reflux disease) Status: Chronic Qualifiers: Esophagitis presence: with esophagitis Qualified Code(s): K21.0 - Gastro- esophageal reflux disease with esophagitis Plan: CONTINUE PROTONIX, CONTINUE TO MONITOR (11) Hypertension Status: Chronic Qualifiers: Hypertension type: essential hypertension Plan: CONTINUE COREG, CONTINUE TO MONITOR (12) Hyperlipidemia Status: Chronic Qualifiers: Hyperlipidemia type: mixed hyperlipidemia Qualified Code(s): E78.2 - Mixed hyperlipidemia Plan: CONTINUE ZOCOR, CONTINUE TO MONITOR (13) Hypoalbuminemia Status: Acute Plan: ALBUMIN 25% 2 BAGS IV DAILY, CONTINUE TO MONITOR
[2017-07-19] MEDS ORDERED: FENTANYL INJ 100 mcg ONE (11:07)
[2017-07-19] MEDS ORDERED: BACTROBAN OINT ONE (11:21)
[2017-07-19] MEDS ORDERED: NS IRRIGATION 1000 ML 1,000 ML with BACITRACIN VIAL 50,000 UNT IR ONE ×2 (11:25)
--- NOTE | 2017-07-19 12:22 | DR.CONSULT ---
Consult - Consultation for Day of: Date: 07/17/17 (thanks for the consult) - Chief Complaint Chief Complaint: left great toe ulcer, diabetic neuropathy - Allergies Allergies/Adverse Reactions: Allergies Allergy/AdvReac Type Severity Reaction Status Date / Time ezetimibe [From Zetia] Allergy Verified 07/08/17 18:25 Influenza Virus Vaccines Allergy Verified 07/08/17 18:25 Penicillins Allergy Verified 07/08/17 18:25 pneumococcal vaccine Allergy Verified 07/08/17 18:25 ropinirole [From Requip] Allergy Verified 07/08/17 18:25 - Past Medical History Past Medical History: Arthritis, Coronary Artery Disease, Diabetes, GERD Additional Medical History: Cataracts, Constipation, Urinary Tract Infections - Past Surgical History Surgical History: Hysterectomy, Ortho Surgery - Family History Family Medical History: [place], Coronary Artery Disease, Hypertension - Social History Does patient currently use any type of tobacco product: No Have you used tobacco products in the last 12 months: No Type of Tobacco Use: None Alcohol Use: None Drug Use: None - Medications Home Medications: Carvedilol [COREG TAB 3.125 MG *] 1 tab PO BID 07/08/17 [History Confirmed 07/08] Cholecalciferol (Vitamin D3) [Vitamin D3] 1 tab PO DAILY 07/08/17 [History Confirmed 07/08/17] Gabapentin [NEURONTIN CAP 300 mg *] 300 mg PO BID 07/08/17 [History Confirmed ] Gabapentin [NEURONTIN CAP 400 MG *] 400 mg PO HS 07/08/17 [History Confirmed ] Hydrocodone-Acet 5 mg/325 mg [NORCO 5 MG/325 MG *] 1 tab PO Q6H 07/08/17 [ History Confirmed 07/08/17] Insulin Glargine (Lantus) [LANTUS INSULIN 10 ML VIAL *] 12 units SC HS 07/08/17 [History Confirmed 07/08/17] Insulin Glargine (Lantus) [LANTUS INSULIN 10 ML VIAL *] 40 units SQ DAILY [History Confirmed 07/08/17] Nitrofurantoin Macro [MacroBID 100 MG EXT REL *] 100 tab PO NEEDED 07/08/17 [ History Confirmed 07/08/17] Venlafaxine HCl [Venlafaxine HCl ER] 1 tab PO DAILY 07/08/17 [History Confirmed 07/08/17] Aspirin EC [ASPIRIN EC 81 MG *] 1 tab PO DAILY 07/09/17 [History Confirmed 07/09] Cholecalciferol (Vitamin D3) [Vitamin D3] 1 tab PO DAILY 07/09/17 [History Confirmed 07/09/17] Hydrocodone-Acet 10/325 mg [NORCO 10 MG/325 MG *] 1 tab PO Q6H PRN 07/09/17 [ History Confirmed 07/09/17] - Physical Exam Vital Signs: Temperature 9737 F Pulse Rate [Right Brachial] 79 Pulse Rate [Left Brachial] 76 Pulse Rate 77 Respiratory Rate 20 Blood Pressure [Left Arm] 153/65 Blood Pressure [Right Arm] 181/74 Blood Pressure 168/70 O2 Sat by Pulse Oximetry 95 Musculoskeletal: Left (great toe ulcer, 2-3 cm eunice, exposed bone) - Plan Plan: debridement and wound closure wednesday.
[2017-07-19] MEDS: MORPHINE SULFATE INJ 2 MG INJ IVP PRN ×3 (12:37→20:42)
[2017-07-19] MEDS: NORCO 10/325 TAB PO PRN (14:06)
[2017-07-19] MEDS ORDERED: VERSED ONE (15:28)
[2017-07-19] MEDS ORDERED: DIPRIVAN VIAL ONE (15:28)
[2017-07-19] MEDS: LEVAQUIN PREMIX IV 750 MG 750 MG/150 ML BAG IV SCH (15:42)
[2017-07-19] MEDS: HumuLIN R SC PRN (17:01)
[2017-07-19] MEDS: ZOCOR TAB 40 MG PO SCH (20:43)
[2017-07-19] MEDS: NEURONTIN CAP 400 MG PO SCH (20:43)
[2017-07-19] MEDS: MILK OF MAGNESIA PO SCH (20:59)
[2017-07-19] MEDS: LANTUS SC SCH (21:01)
[2017-07-19] MEDS: COLACE CAP 100 MG PO SCH (21:01)
--- NOTE | 2017-07-19 21:44 | PCM.PROG ---
Progress Note - Progress Note for Day of Date: 07/19/17 - Subjective Subjective: WAS ADMITTED FOR A DIABETIC ULCER TO THE LEFT FOOT AND THE RIGHT ANKLE. TODAY, SHE IS ALERT AND ORIENTED, LYING IN BED ON MORNING ROUNDS. SHE CONTINUES WITH COMPLAINTS OF CONSTANT PAIN TO THE LEFT FOOT AND SHORTNESS OF BREATH. ON EXAMINATION, LUNG SOUNDS ARE DIMINISHED THROUGHOUT. ABDOMEN IS SOFT, ROUND, AND NON-TENDER WITH NORMAL BOWEL SOUNDS NOTED IN ALL QUADRANTS. HER VITALS SIGNS THIS MORNING ARE 97.7-79-20-95%-181/74. ABNORMAL LAB VALUES THIS MORNING INCLUDE THE FOLLOWING: RBC 3.02, HGB 9.2, HCT 27.6, BUN 43, CREATININE 1.42, GFR 38, GLUCOSE 255, AST 9. A CHEST XRAY WAS OBTAINED THIS MORNING AND REPORTED CARDIOMEGALY WITH IMPROVING CONGESTIVE HEART FAILURE AND UNCHANGED PLEURAL EFFUSIONS. CONSULTED WITH PATIENT AND PLANS TO TAKE PATIENT TO THE OR TODAY FOR DEBRIEDMENT OF WOUND TO LEFT FOOT. TODAY, WE WILL GIVE LASIX 40MG IVP X 2 DOSES, CONTINUE ALBUMIN AND ANTIBIOTICS, AND HAVE RESPIRATORY ASSESS PATIENT FOR HOME OXYGEN THERAPY. WE PLAN TO FOLLOW UP WITH AM LABS AND CHEST XRAY AND CONTINUE TO MONITOR PATIENT. - Past Medical Family Social History Past Med/Fam/Surg Hx: No changes since H&P Allergies: Allergies ezetimibe [From Zetia] Allergy (Verified 07/08/17 18:25) Influenza Virus Vaccines Allergy (Verified 07/08/17 18:25) Penicillins Allergy (Verified 07/08/17 18:25) pneumococcal vaccine Allergy (Verified 07/08/17 18:25) ropinirole [From Requip] Allergy (Verified 07/08/17 18:25) - Review of Systems ROS: No change since H&P - Vital Signs and I&O's Vital Signs: Temperature 97.0 F Pulse Rate [Right Brachial] 82 Pulse Rate [Left Brachial] 75 Pulse Rate 76 Respiratory Rate 20 Blood Pressure [Left Arm] 153/65 Blood Pressure [Right Arm] 171/74 Blood Pressure 168/70 O2 Sat by Pulse Oximetry 97 Intake and Output: Intake & Output 07/17/17 07/18/17 07/19/17 07/20/17 11:59 11:59 11:59 11:59 Intake Total 1070 1250 1040 240 Output Total 3400 1000 2250 1400 Balance -2330 250 -1210 -1160 - Physical Exam Oriented: Normal Eyes: Normal Ear: Normal Nose: Normal Throat: Normal Respiratory: Generalized, Diminished Cardiovascular: Normal : Normal Auscultation: Bowel Sounds: Normal Palpation: Normal Tenderness: Normal Skin: Red, Tender (LEFT FOOT, RIGHT ANKLE ), Wound Musculoskeletal: Left (great toe ulcer, 2-3 cm eunice, exposed bone) Psychiatric: Normal Mood Description: Calm Affect: Normal Speech Pattern: Clear, Appropriate - Laboratory and Diagnostics Result Diagrams: 07/19/17 04:00 07/19/17 04:00 Labs: 07/19/17 11:50 Toe - Left Big Gram Stain - Final 07/16/17 15:44 Urine,Catheterized Urine Culture - Final 07/17/17 17:07 Sputum - Expectorated Sputum Sputum Culture - Final 07/17/17 17:07 Sputum - Expectorated Sputum - Final 07/08/17 17:12 Blood Blood Culture - Final 07/08/17 17:17 Blood Blood Culture - Final 07/08/17 18:12 Foot - Left Gram Stain - Final 07/08/17 18:12 Foot - Left Wound Culture - Final Proteus Mirabilis Staphylococcus Aureus Stenotrophomonas Maltophilia 07/09/17 10:20 Urine,Clean Catch Urine Culture - Final Laboratory WBC 7.0 X10^3/uL (3.6-10.0) 07/19/17 04:00 RBC 3.02 X10^6/uL (3.5-5.4) L 07/19/17 04:00 Hgb 9.2 g/dL (12.0-16.0) L 07/19/17 04:00 Hct 27.6 % (36.0-47.0) L 07/19/17 04:00 MCV 91.2 fL (80.0-100.0) 07/19/17 04:00 MCH 30.3 pg (27.0-34.0) 07/19/17 04:00 MCHC 33.2 g/dL (33.0-35.0) 07/19/17 04:00 RDW 15.0 % (11.6-16.5) 07/19/17 04:00 Plt Count 276 X10^3/uL (150.0-450.0) 07/19/17 04:00 MPV 7.8 fL (7.4-11.0) 07/19/17 04:00 Neut % 70.8 % (42.0-75.0) 07/19/17 04:00 Lymph % 12.1 % (21.0-51.0) L 07/19/17 04:00 [place] % 8.3 % (0.0-13.0) 07/19/17 04:00 Eos % 8.1 % (0.9-2.9) H 07/19/17 04:00 Baso % 0.7 % (0.2-1.0) 07/19/17 04:00 Neut # 5.0 x10^3/uL (2.2-4.8) H 07/19/17 04:00 Lymph # 0.8 X10^3/uL (1.3-2.9) L 07/19/17 04:00 [place] # 0.6 x10^3/uL (0.3-0.8) 07/19/17 04:00 Eos # 0.6 x10^3/uL (0.0-0.2) H 07/19/17 04:00 Baso # 0.0 X10^3/uL (0.0-0.1) 07/19/17 04:00 Absolute Nucleated RBC 0.1 /100WBC 07/19/17 04:00 ESR 52 MM/HOUR (0-20) H 07/16/17 05:25 INR Target Range - 07/08/17 17:12 INR 1.07 (0.8-1.3) 07/08/17 17:12 Sample Site Right brachial 07/16/17 15:06 ABG pH 7.370 (7.35-7.45) 07/16/17 15:06 ABG pCO2 49.0 mmHg (35.0-45.0) H 07/16/17 15:06 ABG pO2 49.0 mmHg (80.0-100.0) L* 07/16/17 15:06 ABG HCO3 28.3 mmol/L (22-26) H 07/16/17 15:06 ABG O2 Saturation 83.0 % (90-100) L* 07/16/17 15:06 ABG Base Excess 2.3 mmol/L (-2.0-2.0) H 07/16/17 15:06 Mart Test Na 07/16/17 15:06 A-a Gradient 118.0 mmHg 07/16/17 15:06 FiO2 32.000 07/16/17 15:06 Blood Gas Comments Germaine well aw 07/16/17 15:06 Sodium 140 mmol/L (136-145) 07/19/17 04:00 Corrected Sodium 141 mmol/L (136-145) 07/19/17 04:00 Potassium 4.6 mmol/L (3.5-5.1) 07/19/17 04:00 Chloride 101 mmol/L (98-107) 07/19/17 04:00 Carbon Dioxide 31.2 mmol/L (21-32) 07/19/17 04:00 BUN 43 mg/dL (7-18) H 07/19/17 04:00 Creatinine 1.42 mg/dL (0.55-1.02) H 07/19/17 04:00 Est GFR (MDRD) Af Amer 46 (>60) L 07/19/17 04:00 Est GFR (MDRD) Non-Af 38 (>60) L 07/19/17 04:00 Glucose 155 mg/dL (65-99) H 07/19/17 04:00 POC Glucose (mg/dL) 199 mg/dL (65-99) H 07/19/17 20:24 Calcium 9.4 mg/dL (8.5-10.1) 07/19/17 04:00 Corrected Calcium TNP 07/19/17 04:00 Total Bilirubin 0.50 mg/dL (0.2-1.0) 07/19/17 04:00 AST 9 Units/L (15-37) L 07/19/17 04:00 ALT 13 Units/L (12-78) 07/19/17 04:00 Alkaline Phosphatase 60 Units/L (46-116) 07/19/17 04:00 Creatine Kinase 37 Units/L (26-192) 07/16/17 16:02 CK-MB (CK-2) 1.1 ng/mL (0-4.0) 07/16/17 16:02 CK/CKMB % Calc 3.0 % (<4) 07/16/17 16:02 Troponin I < 0.02 ng/mL (0-1.5) 07/16/17 16:02 C-Reactive Protein 131.20 mg/L (0-3.0) H 07/16/17 05:25 Total Protein 7.1 g/dL (6.4-8.2) 07/19/17 04:00 Albumin 4.3 g/dL (3.4-5.0) 07/19/17 04:00 Globulin 2.8 g/dL (2.5-4.5) 07/19/17 04:00 Albumin/Globulin Ratio 1.5 Ratio (1.1-2.1) 07/19/17 04:00 Specimen Type Catherized urine 07/16/17 15:44 Urine Color Yellow (YELLOW) 07/16/17 15:44 Urine Appearance Hazy (CLEAR) 07/16/17 15:44 Urine pH 5.0 (5.0 - 8.0) 07/16/17 15:44 Ur Specific [place] 1.015 (1.000-1.030) 07/16/17 15:44 Urine Protein 3+ (NEGATIVE) 07/16/17 15:44 Urine Glucose (UA) 1+ (NEGATIVE) 07/16/17 15:44 Urine Ketones Negative (NEGATIVE) 07/16/17 15:44 Urine Occult Blood 2+ (NEGATIVE) 07/16/17 15:44 Urine Nitrite Negative (NEGATIVE) 07/16/17 15:44 Urine Bilirubin Negative (NEGATIVE) 07/16/17 15:44 Urine Urobilinogen Normal (NORMAL) 07/16/17 15:44 Ur Leukocyte Esterase 3+ (NEGATIVE) 07/16/17 15:44 Urine RBC None seen /HPF (NEGATIVE) 07/16/17 15:44 Urine WBC Tntc /HPF (NEGATIVE) 07/16/17 15:44 Ur Squamous Epith Cells Negative /HPF (NEGATIVE) 07/16/17 15:44 Amorphous Sediment Trace /HPF (NEGATIVE) 07/09/17 10:20 Urine Bacteria 1+ /HPF (NEGATIVE) 07/16/17 15:44 Urine Mucus Few /HPF (NEGATIVE) 07/09/17 10:20 Ur Culture Indicated? Yes/culture set up 07/16/17 15:44 Influenza Type A (PCR) Negative (NEGATIVE) 07/14/17 15:07 Influenza Type B (PCR) Negative (NEGATIVE) 07/14/17 15:07 - Plan (1) Diabetic ulcer of left great toe Status: Acute Plan: LEVAQUIN 750MG IV Q48H, WOUND CARE, BILATERAL ARTERIAL DOPPLER, CONTINUE TO MONITOR (2) Pulmonary edema Status: Acute Qualifiers: Chronicity: acute Qualified Code(s): J81.0 - Acute pulmonary edema Plan: BIPAP, SUPPLEMENTAL OXYGEN, LASIX 40MG IV Q12H, FLUID RESTRICTION, SALINE LOCK FLUIDS, AGUILAR CATHETER, DUONEBS, CONTINUE TO MONITOR (3) Infection due to Stenotrophomonas maltophilia Status: Acute Plan: LEVAQUIN 750MG IV Q48H, WOUND CARE, CONTINUE TO MONITOR (4) Staph aureus infection Status: Acute Plan: LEVAQUIN 750MG IV Q48H, WOUND CARE, CONTINUE TO MONITOR (5) Proteus infection Status: Acute Plan: LEVAQUIN 750MG IV Q48H, WOUND CARE, CONTINUE TO MONITOR (6) Shortness of breath Status: Acute Plan: BIPAP, LASIX 40MG IV Q12H, DUONEBS PRN, SUPPLEMENTAL OXYGEN, CONTINUE TO MONITOR (7) Depression Status: Chronic Qualifiers: Depression Type: major depressive disorder Major depression recurrence: recurrent Active/Remission status: remission status unspecified Qualified Code(s): F33.9 - Major depressive disorder, recurrent, unspecified Plan: CONTINUE VENLAFAXINE,CONTINUE TO MONITOR (8) CAD (coronary artery disease) Status: Chronic Qualifiers: Coronary Disease-Associated Artery/Lesion type: [place] artery [place] vs. transplanted heart: [place] heart Associated angina: without angina Qualified Code(s): I25.10 - Atherosclerotic heart disease of [place] coronary artery without angina pectoris Plan: CONTINUE PLAVIX, CONTINUE TO MONITOR (9) Diabetes mellitus, type 2 Status: Chronic Qualifiers: Diabetes mellitus complication status: with hypoglycemia Diabetes mellitus complication detail: without coma Diabetes mellitus customer engagement specialist insulin use: with detention use Qualified Code(s): E11.649 - Type 2 diabetes mellitus with hypoglycemia without coma Plan: HUMULIN R SLIDING SCALE, LANTUS 12UNITS SC HS, MONITOR OTBS, CONTINUE TO MONITOR (10) GERD (gastroesophageal reflux disease) Status: Chronic Qualifiers: Esophagitis presence: with esophagitis Qualified Code(s): K21.0 - Gastro- esophageal reflux disease with esophagitis Plan: CONTINUE PROTONIX, CONTINUE TO MONITOR (11) Hypertension Status: Chronic Qualifiers: Hypertension type: essential hypertension Plan: CONTINUE COREG, CONTINUE TO MONITOR (12) Hyperlipidemia Status: Chronic Qualifiers: Hyperlipidemia type: mixed hyperlipidemia Qualified Code(s): E78.2 - Mixed hyperlipidemia Plan: CONTINUE ZOCOR, CONTINUE TO MONITOR (13) Hypoalbuminemia Status: Acute Plan: ALBUMIN 25% 2 BAGS IV DAILY, CONTINUE TO MONITOR
[2017-07-20] MEDS: MORPHINE SULFATE INJ 2 MG INJ IVP PRN ×3 (00:19→08:53)
[2017-07-20] MEDS: NORCO 5/325 MG TAB PO SCH ×5 (05:01→21:38)
[2017-07-20 05:22] LABS: BASOPHILS # (AUTO) 0.1 X10^3/uL (0.0-0.1); BASOPHILS % (AUTO) 0.9 % (0.2-1.0); EOSINOPHILS # (AUTO) 0.6 x10^3/uL (0.0-0.2); EOSINOPHILS % (AUTO) 6.9 % (0.9-2.9); HEMATOCRIT 26.3 % (36.0-47.0); HEMOGLOBIN 8.7 g/dL (12.0-16.0); LYMPHOCYTES % (AUTO) 12.8 % (21.0-51.0); MEAN CORPUSCULAR HEMOGLOBIN 30.2 pg (27.0-34.0); MEAN CORPUSCULAR HGB CONC 33.2 g/dL (33.0-35.0); MEAN PLATELET VOLUME 7.6 fL (7.4-11.0); MONOCYTES # (AUTO) 0.9 x10^3/uL (0.3-0.8); MONOCYTES % (AUTO) 10.7 % (0.0-13.0); NEUTROPHILS # (AUTO) 5.5 x10^3/uL (2.2-4.8); NEUTROPHILS % (AUTO) 68.7 % (42.0-75.0); PLATELET COUNT 275 X10^3/uL (150.0-450.0); RED BLOOD COUNT 2.89 X10^6/uL (3.5-5.4); RED CELL DISTRIBUTION WIDTH 14.8 % (11.6-16.5)
[2017-07-20 05:23] LABS: ALANINE AMINOTRANSFERASE 13 Units/L (12-78); ALBUMIN 4.1 g/dL (3.4-5.0); ALKALINE PHOSPHATASE 59 Units/L (46-116); ASPARTATE AMINO TRANSFERASE 12 Units/L (15-37); BLOOD UREA NITROGEN 43 mg/dL (7-18); CALCIUM 9.2 mg/dL (8.5-10.1); CARBON DIOXIDE 35.2 mmol/L (21-32); CHLORIDE 99 mmol/L (98-107); COR NA(FOR HYPERGLY) 143 mmol/L (136-145); CREATININE 1.55 mg/dL (0.55-1.02); SODIUM 140 mmol/L (136-145); TOTAL PROTEIN 6.9 g/dL (6.4-8.2); eGFR BLACK RACES 41 (>60); eGFR NON BLACK RACES 34 (>60)
[2017-07-20] MEDS: HumuLIN R SC PRN ×4 (06:18→22:00)
--- NOTE | 2017-07-20 07:28 | RAD ---
HISTORY: Shortness of breath Study: Chest AP portable Comparison: 07/19/2017 Findings: The heart is enlarged. No definite congestive heart failure is present on today's examination. No def inite infiltrates are identified. Bilateral pleural effusions are unchanged. The bony thorax is unrem arkable. IMPRESSION: Cardiomegaly without congestive heart failure No definite infiltrates No change bilateral pleural effusions Reported By:
[2017-07-20] MEDS: COREG TAB 3.125 MG PO SCH ×2 (08:50→21:38)
[2017-07-20] MEDS: EFFEXOR XR 75 MG CAP PO SCH (08:50)
[2017-07-20] MEDS: ALBUMIN HUMAN 25%- 100ML 200 ML IV SCH (08:50)
[2017-07-20] MEDS: NYSTATIN POWDER TOP SCH ×2 (08:51→21:41)
[2017-07-20] MEDS: LOVENOX INJ 40 MG SYR SC SCH (08:51)
[2017-07-20] MEDS: NEURONTIN CAP 300 MG PO SCH ×2 (08:51→21:37)
[2017-07-20] MEDS: PROTONIX TAB 40 MG PO SCH (08:52)
[2017-07-20] MEDS: VITAMIN D3 PO SCH (08:52)
[2017-07-20] MEDS: PLAVIX PO SCH (08:52)
[2017-07-20] MEDS: XOPENEX 1.25 MG/3 ML NEBULE NEB SCH ×4 (09:03→20:33)
--- NOTE | 2017-07-20 14:13 | MRI ---
HISTORY: LEFT GREAT TOE AND FOOT ULCERATION POSSIBLE OSTEOMYELITIS. EXAM: NON CONTRAST MRI EXAM OF THE LEFT FOOT. TECHNIQUE: Multisequence and multiplanar T1 and T2 weighted sequences of the left foot were obtained without the administration of IV paramagnetic contrast at 1.5 Charla. COMPARISON: CT examination of the left foot dated 07/17/2017. FINDINGS: There is abnormal soft tissue edema and T2 signal alteration seen throughout the left great toe, noel cially distally, where there is an associated cutaneous wound appreciated with associated susceptibil ity artifact versus gas. This probably reflects an open wound and chronic cellulitis but it could be better inspected/confirmed physically. There is also abnormal bone marrow edema seen within the dista l phalanx of the left great toe which does not apparently involve the IP joint to suggest a septic ar thritis. 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 Mild edema within the head of the 1st proximal phalanx at the level of the IP joint is felt to be reactive in nature rather than reflect osteomyelitis no other abnormal bone marrow edema is seen the Lisfranc joint and Lisfranc ligament are grossly intact. There is no evidence for acute ankle ligamentous inj ury or tendon injury. No acute or stress fracture is seen. No other bony or soft tissue abnormalities identified on this examination. IMPRESSION: Deep left great toe soft tissue wound & ulceration with concomitant cellulitis with associated osteom yelitis of the distal 1st phalanx which does not apparently involve the great toe IP joint to suggest septic arthritis. Susceptibility artifact throughout the distal great toe probably reflects either p ostop changes versus gas in the soft tissues. Gas could be best excluded with radiographic imaging (i n order to exclude a gas-forming organism in this area) and exclude the possibility of a developing/e franchesca necrotizing fasciitis in this patient. Given the lack of gas seen on recent CT imaging of the foot, however, postsurgical changes to account for this degree of susceptibility artifact involving the left great toe would be favored. Reported By:
[2017-07-20] MEDS: ZOFRAN INJ 4 MG VIAL IVP PRN (16:32)
--- NOTE | 2017-07-20 17:06 | PCM.PROG ---
Progress Note - Progress Note for Day of Date: 07/20/17 (POD1) - Subjective Subjective: doing well. debridement of the diabetic foot. - Past Medical Family Social History Past Med/Fam/Surg Hx: No changes since H&P Allergies: Allergies ezetimibe [From Zetia] Allergy (Verified 07/08/17 18:25) Influenza Virus Vaccines Allergy (Verified 07/08/17 18:25) Penicillins Allergy (Verified 07/08/17 18:25) pneumococcal vaccine Allergy (Verified 07/08/17 18:25) ropinirole [From Requip] Allergy (Verified 07/08/17 18:25) - Review of Systems ROS: No change since H&P - Vital Signs and I&O's Vital Signs: Temperature 97.5 F Pulse Rate [Right Brachial] 73 Pulse Rate [Left Brachial] 75 Pulse Rate 80 Respiratory Rate 20 Blood Pressure [Left Arm] 120/56 Blood Pressure [Right Arm] 172/71 Blood Pressure 168/70 O2 Sat by Pulse Oximetry 96 Intake and Output: Intake & Output 07/18/17 07/19/17 07/20/17 07/21/17 11:59 11:59 11:59 11:59 Intake Total 1250 1040 930 480 Output Total 1000 2250 3650 600 Balance 250 -1210 -4450 -120 - Physical Exam Oriented: Normal Eyes: Normal Ear: Normal Nose: Normal Throat: Normal Respiratory: Generalized, Diminished Cardiovascular: Normal : Normal Auscultation: Bowel Sounds: Normal Tenderness: Normal Skin: Red, Tender (LEFT FOOT, RIGHT ANKLE ), Wound Musculoskeletal: Left (great toe ulcer, 2-3 cm eunice, exposed bone) Psychiatric: Normal Mood Description: Calm Affect: Normal Speech Pattern: Clear, Appropriate - Laboratory and Diagnostics Result Diagrams: 07/20/17 04:45 07/20/17 04:45 Labs: 07/19/17 11:50 Toe - Left Big Gram Stain - Final 07/19/17 11:50 Toe - Left Big Wound Culture - Preliminary 07/16/17 15:44 Urine,Catheterized Urine Culture - Final 07/17/17 17:07 Sputum - Expectorated Sputum Sputum Culture - Final 07/17/17 17:07 Sputum - Expectorated Sputum - Final 07/08/17 17:12 Blood Blood Culture - Final 07/08/17 17:17 Blood Blood Culture - Final 07/08/17 18:12 Foot - Left Gram Stain - Final 07/08/17 18:12 Foot - Left Wound Culture - Final Proteus Mirabilis Staphylococcus Aureus Stenotrophomonas Maltophilia 07/09/17 10:20 Urine,Clean Catch Urine Culture - Final Laboratory WBC 8.0 X10^3/uL (3.6-10.0) 07/20/17 04:45 RBC 2.89 X10^6/uL (3.5-5.4) L 07/20/17 04:45 Hgb 8.7 g/dL (12.0-16.0) L 07/20/17 04:45 Hct 26.3 % (36.0-47.0) L 07/20/17 04:45 MCV 91.0 fL (80.0-100.0) 07/20/17 04:45 MCH 30.2 pg (27.0-34.0) 07/20/17 04:45 MCHC 33.2 g/dL (33.0-35.0) 07/20/17 04:45 RDW 14.8 % (11.6-16.5) 07/20/17 04:45 Plt Count 275 X10^3/uL (150.0-450.0) 07/20/17 04:45 MPV 7.6 fL (7.4-11.0) 07/20/17 04:45 Neut % 68.7 % (42.0-75.0) 07/20/17 04:45 Lymph % 12.8 % (21.0-51.0) L 07/20/17 04:45 [place] % 10.7 % (0.0-13.0) 07/20/17 04:45 Eos % 6.9 % (0.9-2.9) H 07/20/17 04:45 Baso % 0.9 % (0.2-1.0) 07/20/17 04:45 Neut # 5.5 x10^3/uL (2.2-4.8) H 07/20/17 04:45 Lymph # 1.0 X10^3/uL (1.3-2.9) L 07/20/17 04:45 [place] # 0.9 x10^3/uL (0.3-0.8) H 07/20/17 04:45 Eos # 0.6 x10^3/uL (0.0-0.2) H 07/20/17 04:45 Baso # 0.1 X10^3/uL (0.0-0.1) 07/20/17 04:45 Absolute Nucleated RBC 0.0 /100WBC 07/20/17 04:45 ESR 52 MM/HOUR (0-20) H 07/16/17 05:25 INR Target Range - 07/08/17 17:12 INR 1.07 (0.8-1.3) 07/08/17 17:12 Sample Site Right brachial 07/16/17 15:06 ABG pH 7.370 (7.35-7.45) 07/16/17 15:06 ABG pCO2 49.0 mmHg (35.0-45.0) H 07/16/17 15:06 ABG pO2 49.0 mmHg (80.0-100.0) L* 07/16/17 15:06 ABG HCO3 28.3 mmol/L (22-26) H 07/16/17 15:06 ABG O2 Saturation 83.0 % (90-100) L* 07/16/17 15:06 ABG Base Excess 2.3 mmol/L (-2.0-2.0) H 07/16/17 15:06 Mart Test Na 07/16/17 15:06 A-a Gradient 118.0 mmHg 07/16/17 15:06 FiO2 32.000 07/16/17 15:06 Blood Gas Comments Germaine well aw 07/16/17 15:06 Sodium 140 mmol/L (136-145) 07/20/17 04:45 Corrected Sodium 143 mmol/L (136-145) 07/20/17 04:45 Potassium 4.4 mmol/L (3.5-5.1) 07/20/17 04:45 Chloride 99 mmol/L (98-107) 07/20/17 04:45 Carbon Dioxide 35.2 mmol/L (21-32) H 07/20/17 04:45 BUN 43 mg/dL (7-18) H 07/20/17 04:45 Creatinine 1.55 mg/dL (0.55-1.02) H 07/20/17 04:45 Est GFR (MDRD) Af Amer 41 (>60) L 07/20/17 04:45 Est GFR (MDRD) Non-Af 34 (>60) L 07/20/17 04:45 Glucose 212 mg/dL (65-99) H 07/20/17 04:45 POC Glucose (mg/dL) 186 mg/dL (65-99) H 07/20/17 16:12 Calcium 9.2 mg/dL (8.5-10.1) 07/20/17 04:45 Corrected Calcium TNP 07/20/17 04:45 Total Bilirubin 0.40 mg/dL (0.2-1.0) 07/20/17 04:45 AST 12 Units/L (15-37) L 07/20/17 04:45 ALT 13 Units/L (12-78) 07/20/17 04:45 Alkaline Phosphatase 59 Units/L (46-116) 07/20/17 04:45 Creatine Kinase 37 Units/L (26-192) 07/16/17 16:02 CK-MB (CK-2) 1.1 ng/mL (0-4.0) 07/16/17 16:02 CK/CKMB % Calc 3.0 % (<4) 07/16/17 16:02 Troponin I < 0.02 ng/mL (0-1.5) 07/16/17 16:02 C-Reactive Protein 131.20 mg/L (0-3.0) H 07/16/17 05:25 Total Protein 6.9 g/dL (6.4-8.2) 07/20/17 04:45 Albumin 4.1 g/dL (3.4-5.0) 07/20/17 04:45 Globulin 2.8 g/dL (2.5-4.5) 07/20/17 04:45 Albumin/Globulin Ratio 1.5 Ratio (1.1-2.1) 07/20/17 04:45 Specimen Type Catherized urine 07/16/17 15:44 Urine Color Yellow (YELLOW) 07/16/17 15:44 Urine Appearance Hazy (CLEAR) 07/16/17 15:44 Urine pH 5.0 (5.0 - 8.0) 07/16/17 15:44 Ur Specific [place] 1.015 (1.000-1.030) 07/16/17 15:44 Urine Protein 3+ (NEGATIVE) 07/16/17 15:44 Urine Glucose (UA) 1+ (NEGATIVE) 07/16/17 15:44 Urine Ketones Negative (NEGATIVE) 07/16/17 15:44 Urine Occult Blood 2+ (NEGATIVE) 07/16/17 15:44 Urine Nitrite Negative (NEGATIVE) 07/16/17 15:44 Urine Bilirubin Negative (NEGATIVE) 07/16/17 15:44 Urine Urobilinogen Normal (NORMAL) 07/16/17 15:44 Ur Leukocyte Esterase 3+ (NEGATIVE) 07/16/17 15:44 Urine RBC None seen /HPF (NEGATIVE) 07/16/17 15:44 Urine WBC Tntc /HPF (NEGATIVE) 07/16/17 15:44 Ur Squamous Epith Cells Negative /HPF (NEGATIVE) 07/16/17 15:44 Amorphous Sediment Trace /HPF (NEGATIVE) 07/09/17 10:20 Urine Bacteria 1+ /HPF (NEGATIVE) 07/16/17 15:44 Urine Mucus Few /HPF (NEGATIVE) 07/09/17 10:20 Ur Culture Indicated? Yes/culture set up 07/16/17 15:44 Influenza Type A (PCR) Negative (NEGATIVE) 07/14/17 15:07 Influenza Type B (PCR) Negative (NEGATIVE) 07/14/17 15:07 - Plan (1) Diabetic ulcer of left great toe Status: Acute Plan: regular dressing change. NWB on the toe- heel touch weight bearing. Antibiotics according to culture and sensitiviity. Follow up at 3 weeks. X rays foot before the appointment.
--- NOTE | 2017-07-20 20:15 | PCM.PROG ---
Progress Note - Progress Note for Day of Date: 07/20/17 - Subjective Subjective: WAS ADMITTED FOR A DIABETIC ULCER TO THE LEFT FOOT AND THE RIGHT ANKLE. PATIENT HAD DEBRIDEMENT OF WOUND YESTERDAY. TODAY, SHE IS ALERT AND ORIENTED, LYING IN BED ON MORNING ROUNDS. SHE CONTINUES WITH COMPLAINTS OF CONSTANT PAIN TO THE LEFT FOOT. SHE REPORTS THAT PAIN HAS IMPROVED SOME SINCE OUR PREVIOUS EXAMINATION. PATIENT ALSO REPORTS IMPROVEMENT IN SYMPTOMS OF SHORTNESS OF BREATH. ON EXAMINATION, LUNG SOUNDS ARE DIMINISHED THROUGHOUT. ABDOMEN IS SOFT, ROUND, AND NON-TENDER WITH NORMAL BOWEL SOUNDS NOTED IN ALL QUADRANTS. LEFT FOOT IS NOTED WITH A KERLIX DRESSING. DRESSING IS DRY AND INTACT WITH NO SIGNS OR SYMPTOMS OF INFECTION NOTED TO AREA SURROUNDING DRESSING. IS FOLLOWING PATIENT WELL AND WILL PERFORM FIRST DRESSING CHANGE WHEN HE FOLLOWS UP WITH HER THIS AFTERNOON. HER VITALS SIGNS THIS MORNING ARE 97.5-79-20-100%-172/71. ABNORMAL LAB VALUES THIS MORNING INCLUDE THE FOLLOWING: RBC 2.89, HGB 8.7, HCT 26.3, CARBON DIOXIDE 35.2, BUN 43 , CREATININE 1.55, GFR 34, GLUCOSE 212, AST 12. A CHEST XRAY WAS OBTAINED THIS MORNING AND REPORTED CARDIOMEGALY WITHOUT CONGESTIVE HEART FAILURE. NO DEFINITE INFILTRATES. NO CHANGE IN BILATERAL PLEURAL EFFUSIONS. TODAY, WE WILL OBTAIN AN MRI WITHOUT CONTRAST OF BILATERAL LOWER EXTREMITIES. WE DISCUSSED WITH PATIENT THE NEED FOR AN EXTENDED COURSE OF IV ANTIBIOTICS. PATIENT REPORTS LIVING AT HOME ALONE AND DOES NOT FEEL LIKE SHE WOULD BE SAFE TO GO HOME ALONE. WE DISCUSSED THE POSSIBILITY OF SWINGBED WITH PATIENT AND FAMILY. THEY ARE IN AGREEMENT WITH PLAN. WE WILL FURTHER DISCUSS THIS WITH CASE MANAGEMENT. OTHERWISE, WE WILL CONTINUE WITH CURRENT PLAN OF CARE TODAY. WE PLAN TO FOLLOW UP WITH AM LABS AND CHEST XRAY AND CONTINUE TO MONITOR PATIENT. - Past Medical Family Social History Past Med/Fam/Surg Hx: No changes since H&P Allergies: Allergies ezetimibe [From Zetia] Allergy (Verified 07/08/17 18:25) Influenza Virus Vaccines Allergy (Verified 07/08/17 18:25) Penicillins Allergy (Verified 07/08/17 18:25) pneumococcal vaccine Allergy (Verified 07/08/17 18:25) ropinirole [From Requip] Allergy (Verified 07/08/17 18:25) - Review of Systems ROS: No change since H&P - Vital Signs and I&O's Vital Signs: Temperature 97.5 F Pulse Rate [Right Brachial] 73 Pulse Rate [Left Brachial] 75 Pulse Rate 80 Respiratory Rate 20 Blood Pressure [Left Arm] 120/56 Blood Pressure [Right Arm] 172/71 Blood Pressure 168/70 O2 Sat by Pulse Oximetry 96 Intake and Output: Intake & Output 07/18/17 07/19/17 07/20/17 07/21/17 11:59 11:59 11:59 11:59 Intake Total 1250 1040 930 480 Output Total 1000 2250 3650 600 Balance 250 -8130 -8840 -120 - Physical Exam Oriented: Normal Eyes: Normal Ear: Normal Nose: Normal Throat: Normal Respiratory: Generalized, Diminished Cardiovascular: Normal : Normal Auscultation: Bowel Sounds: Normal Palpation: Normal Tenderness: Normal Skin: Red, Tender (LEFT FOOT, RIGHT ANKLE ), Wound Musculoskeletal: Left (great toe ulcer, 2-3 cm eunice, exposed bone) Psychiatric: Normal Mood Description: Calm Affect: Normal Speech Pattern: Clear, Appropriate - Laboratory and Diagnostics Result Diagrams: 07/20/17 04:45 07/20/17 04:45 Labs: 07/19/17 11:50 Toe - Left Big Gram Stain - Final 07/19/17 11:50 Toe - Left Big Wound Culture - Preliminary 07/16/17 15:44 Urine,Catheterized Urine Culture - Final 07/17/17 17:07 Sputum - Expectorated Sputum Sputum Culture - Final 07/17/17 17:07 Sputum - Expectorated Sputum - Final 07/08/17 17:12 Blood Blood Culture - Final 07/08/17 17:17 Blood Blood Culture - Final 07/08/17 18:12 Foot - Left Gram Stain - Final 07/08/17 18:12 Foot - Left Wound Culture - Final Proteus Mirabilis Staphylococcus Aureus Stenotrophomonas Maltophilia 07/09/17 10:20 Urine,Clean Catch Urine Culture - Final Laboratory WBC 8.0 X10^3/uL (3.6-10.0) 07/20/17 04:45 RBC 2.89 X10^6/uL (3.5-5.4) L 07/20/17 04:45 Hgb 8.7 g/dL (12.0-16.0) L 07/20/17 04:45 Hct 26.3 % (36.0-47.0) L 07/20/17 04:45 MCV 91.0 fL (80.0-100.0) 07/20/17 04:45 MCH 30.2 pg (27.0-34.0) 07/20/17 04:45 MCHC 33.2 g/dL (33.0-35.0) 07/20/17 04:45 RDW 14.8 % (11.6-16.5) 07/20/17 04:45 Plt Count 275 X10^3/uL (150.0-450.0) 07/20/17 04:45 MPV 7.6 fL (7.4-11.0) 07/20/17 04:45 Neut % 68.7 % (42.0-75.0) 07/20/17 04:45 Lymph % 12.8 % (21.0-51.0) L 07/20/17 04:45 [place] % 10.7 % (0.0-13.0) 07/20/17 04:45 Eos % 6.9 % (0.9-2.9) H 07/20/17 04:45 Baso % 0.9 % (0.2-1.0) 07/20/17 04:45 Neut # 5.5 x10^3/uL (2.2-4.8) H 07/20/17 04:45 Lymph # 1.0 X10^3/uL (1.3-2.9) L 07/20/17 04:45 [place] # 0.9 x10^3/uL (0.3-0.8) H 07/20/17 04:45 Eos # 0.6 x10^3/uL (0.0-0.2) H 07/20/17 04:45 Baso # 0.1 X10^3/uL (0.0-0.1) 07/20/17 04:45 Absolute Nucleated RBC 0.0 /100WBC 07/20/17 04:45 ESR 52 MM/HOUR (0-20) H 07/16/17 05:25 INR Target Range - 07/08/17 17:12 INR 1.07 (0.8-1.3) 07/08/17 17:12 Sample Site Right brachial 07/16/17 15:06 ABG pH 7.370 (7.35-7.45) 07/16/17 15:06 ABG pCO2 49.0 mmHg (35.0-45.0) H 07/16/17 15:06 ABG pO2 49.0 mmHg (80.0-100.0) L* 07/16/17 15:06 ABG HCO3 28.3 mmol/L (22-26) H 07/16/17 15:06 ABG O2 Saturation 83.0 % (90-100) L* 07/16/17 15:06 ABG Base Excess 2.3 mmol/L (-2.0-2.0) H 07/16/17 15:06 Mart Test Na 07/16/17 15:06 A-a Gradient 118.0 mmHg 07/16/17 15:06 FiO2 32.000 07/16/17 15:06 Blood Gas Comments Germaine well aw 07/16/17 15:06 Sodium 140 mmol/L (136-145) 07/20/17 04:45 Corrected Sodium 143 mmol/L (136-145) 07/20/17 04:45 Potassium 4.4 mmol/L (3.5-5.1) 07/20/17 04:45 Chloride 99 mmol/L (98-107) 07/20/17 04:45 Carbon Dioxide 35.2 mmol/L (21-32) H 07/20/17 04:45 BUN 43 mg/dL (7-18) H 07/20/17 04:45 Creatinine 1.55 mg/dL (0.55-1.02) H 07/20/17 04:45 Est GFR (MDRD) Af Amer 41 (>60) L 07/20/17 04:45 Est GFR (MDRD) Non-Af 34 (>60) L 07/20/17 04:45 Glucose 212 mg/dL (65-99) H 07/20/17 04:45 POC Glucose (mg/dL) 186 mg/dL (65-99) H 07/20/17 16:12 Calcium 9.2 mg/dL (8.5-10.1) 07/20/17 04:45 Corrected Calcium TNP 07/20/17 04:45 Total Bilirubin 0.40 mg/dL (0.2-1.0) 07/20/17 04:45 AST 12 Units/L (15-37) L 07/20/17 04:45 ALT 13 Units/L (12-78) 07/20/17 04:45 Alkaline Phosphatase 59 Units/L (46-116) 07/20/17 04:45 Creatine Kinase 37 Units/L (26-192) 07/16/17 16:02 CK-MB (CK-2) 1.1 ng/mL (0-4.0) 07/16/17 16:02 CK/CKMB % Calc 3.0 % (<4) 07/16/17 16:02 Troponin I < 0.02 ng/mL (0-1.5) 07/16/17 16:02 C-Reactive Protein 131.20 mg/L (0-3.0) H 07/16/17 05:25 Total Protein 6.9 g/dL (6.4-8.2) 07/20/17 04:45 Albumin 4.1 g/dL (3.4-5.0) 07/20/17 04:45 Globulin 2.8 g/dL (2.5-4.5) 07/20/17 04:45 Albumin/Globulin Ratio 1.5 Ratio (1.1-2.1) 07/20/17 04:45 Specimen Type Catherized urine 07/16/17 15:44 Urine Color Yellow (YELLOW) 07/16/17 15:44 Urine Appearance Hazy (CLEAR) 07/16/17 15:44 Urine pH 5.0 (5.0 - 8.0) 07/16/17 15:44 Ur Specific [place] 1.015 (1.000-1.030) 07/16/17 15:44 Urine Protein 3+ (NEGATIVE) 07/16/17 15:44 Urine Glucose (UA) 1+ (NEGATIVE) 07/16/17 15:44 Urine Ketones Negative (NEGATIVE) 07/16/17 15:44 Urine Occult Blood 2+ (NEGATIVE) 07/16/17 15:44 Urine Nitrite Negative (NEGATIVE) 07/16/17 15:44 Urine Bilirubin Negative (NEGATIVE) 07/16/17 15:44 Urine Urobilinogen Normal (NORMAL) 07/16/17 15:44 Ur Leukocyte Esterase 3+ (NEGATIVE) 07/16/17 15:44 Urine RBC None seen /HPF (NEGATIVE) 07/16/17 15:44 Urine WBC Tntc /HPF (NEGATIVE) 07/16/17 15:44 Ur Squamous Epith Cells Negative /HPF (NEGATIVE) 07/16/17 15:44 Amorphous Sediment Trace /HPF (NEGATIVE) 07/09/17 10:20 Urine Bacteria 1+ /HPF (NEGATIVE) 07/16/17 15:44 Urine Mucus Few /HPF (NEGATIVE) 07/09/17 10:20 Ur Culture Indicated? Yes/culture set up 07/16/17 15:44 Influenza Type A (PCR) Negative (NEGATIVE) 07/14/17 15:07 Influenza Type B (PCR) Negative (NEGATIVE) 07/14/17 15:07 - Plan (1) Diabetic ulcer of left great toe Status: Acute Plan: regular dressing change. NWB on the toe- heel touch weight bearing. Antibiotics according to culture and sensitiviity. Follow up at 3 weeks. X rays foot before the appointment. (2) Pulmonary edema Status: Acute Qualifiers: Chronicity: acute Qualified Code(s): J81.0 - Acute pulmonary edema Plan: BIPAP, SUPPLEMENTAL OXYGEN, LASIX 40MG IV Q12H, FLUID RESTRICTION, SALINE LOCK FLUIDS, AGUILAR CATHETER, DUONEBS, CONTINUE TO MONITOR (3) Infection due to Stenotrophomonas maltophilia Status: Acute Plan: LEVAQUIN 750MG IV Q48H, WOUND CARE, CONTINUE TO MONITOR (4) Staph aureus infection Status: Acute Plan: LEVAQUIN 750MG IV Q48H, WOUND CARE, CONTINUE TO MONITOR (5) Proteus infection Status: Acute Plan: LEVAQUIN 750MG IV Q48H, WOUND CARE, CONTINUE TO MONITOR (6) Shortness of breath Status: Acute Plan: BIPAP, LASIX 40MG IV Q12H, DUONEBS PRN, SUPPLEMENTAL OXYGEN, CONTINUE TO MONITOR (7) Depression Status: Chronic Qualifiers: Depression Type: major depressive disorder Major depression recurrence: recurrent Active/Remission status: remission status unspecified Qualified Code(s): F33.9 - Major depressive disorder, recurrent, unspecified Plan: CONTINUE VENLAFAXINE,CONTINUE TO MONITOR (8) CAD (coronary artery disease) Status: Chronic Qualifiers: Coronary Disease-Associated Artery/Lesion type: [place] artery [place] vs. transplanted heart: [place] heart Associated angina: without angina Qualified Code(s): I25.10 - Atherosclerotic heart disease of [place] coronary artery without angina pectoris Plan: CONTINUE PLAVIX, CONTINUE TO MONITOR (9) Diabetes mellitus, type 2 Status: Chronic Qualifiers: Diabetes mellitus complication status: with hypoglycemia Diabetes mellitus complication detail: without coma Diabetes mellitus penitentiary insulin use: with terminal gauger supervisor use Qualified Code(s): E11.649 - Type 2 diabetes mellitus with hypoglycemia without coma Plan: HUMULIN R SLIDING SCALE, LANTUS 12UNITS SC HS, MONITOR OTBS, CONTINUE TO MONITOR (10) GERD (gastroesophageal reflux disease) Status: Chronic Qualifiers: Esophagitis presence: with esophagitis Qualified Code(s): K21.0 - Gastro- esophageal reflux disease with esophagitis Plan: CONTINUE PROTONIX, CONTINUE TO MONITOR (11) Hypertension Status: Chronic Qualifiers: Hypertension type: essential hypertension Plan: CONTINUE COREG, CONTINUE TO MONITOR (12) Hyperlipidemia Status: Chronic Qualifiers: Hyperlipidemia type: mixed hyperlipidemia Qualified Code(s): E78.2 - Mixed hyperlipidemia Plan: CONTINUE ZOCOR, CONTINUE TO MONITOR (13) Hypoalbuminemia Status: Acute Plan: ALBUMIN 25% 2 BAGS IV DAILY, CONTINUE TO MONITOR
[2017-07-20] MEDS: NEURONTIN CAP 400 MG PO SCH (21:38)
[2017-07-20] MEDS: ZOCOR TAB 40 MG PO SCH (21:38)
[2017-07-20] MEDS: COLACE CAP 100 MG PO SCH (21:38)
[2017-07-20] MEDS: LANTUS SC SCH (21:40)
[2017-07-20] MEDS: MILK OF MAGNESIA PO SCH (21:40)
[2017-07-21] MEDS: NORCO 5/325 MG TAB PO SCH ×2 (03:29→09:34)
[2017-07-21 05:53] LABS: BASOPHILS # (AUTO) 0.1 X10^3/uL (0.0-0.1); BASOPHILS % (AUTO) 0.9 % (0.2-1.0); EOSINOPHILS # (AUTO) 0.5 x10^3/uL (0.0-0.2); EOSINOPHILS % (AUTO) 6.5 % (0.9-2.9); HEMATOCRIT 24.2 % (36.0-47.0); HEMOGLOBIN 8.3 g/dL (12.0-16.0); LYMPHOCYTES % (AUTO) 13.9 % (21.0-51.0); MEAN CORPUSCULAR HEMOGLOBIN 30.9 pg (27.0-34.0); MEAN CORPUSCULAR HGB CONC 34.2 g/dL (33.0-35.0); MEAN CORPUSCULAR VOLUME 90.3 fL (80.0-100.0); MEAN PLATELET VOLUME 7.4 fL (7.4-11.0); MONOCYTES # (AUTO) 0.7 x10^3/uL (0.3-0.8); MONOCYTES % (AUTO) 9.9 % (0.0-13.0); NEUTROPHILS # (AUTO) 5.1 x10^3/uL (2.2-4.8); NEUTROPHILS % (AUTO) 68.8 % (42.0-75.0); PLATELET COUNT 258 X10^3/uL (150.0-450.0); RED BLOOD COUNT 2.68 X10^6/uL (3.5-5.4); RED CELL DISTRIBUTION WIDTH 14.9 % (11.6-16.5); WHITE BLOOD COUNT 7.4 X10^3/uL (3.6-10.0)
[2017-07-21 06:04] LABS: ALANINE AMINOTRANSFERASE 17 Units/L (12-78); ALBUMIN 4.3 g/dL (3.4-5.0); ALKALINE PHOSPHATASE 53 Units/L (46-116); ASPARTATE AMINO TRANSFERASE 15 Units/L (15-37); BLOOD UREA NITROGEN 51 mg/dL (7-18); CALCIUM 9.3 mg/dL (8.5-10.1); CHLORIDE 100 mmol/L (98-107); COR NA(FOR HYPERGLY) 142 mmol/L (136-145); CREATININE 1.76 mg/dL (0.55-1.02); SODIUM 141 mmol/L (136-145); TOTAL PROTEIN 6.9 g/dL (6.4-8.2); eGFR BLACK RACES 36 (>60); eGFR NON BLACK RACES 29 (>60)
--- NOTE | 2017-07-21 06:48 | RAD ---
HISTORY: Shortness of breath Study: AP portable chest Comparison: 07/20/2017 Findings: The heart remains enlarged. No congestive heart failure is noted. The dana are normal. The lungs are free of acute infiltrates. The previously noted right pleural effusion is no longer identified. Left pleural effusion has decreased. Bony thorax is unremarkable. IMPRESSION: Cardiomegaly without congestive heart failure No infiltrates Resolved right pleural effusion Decreasing left pleural effusion Reported By:
[2017-07-21] MEDS ORDERED: NS 500 ML IV 500 ML IV ONE (08:45)
[2017-07-21] MEDS: XOPENEX 1.25 MG/3 ML NEBULE NEB SCH (09:20)
[2017-07-21] MEDS: ALBUMIN HUMAN 25%- 100ML 200 ML IV SCH (09:32)
[2017-07-21] MEDS: EFFEXOR XR 75 MG CAP PO SCH (09:33)
[2017-07-21] MEDS: COREG TAB 3.125 MG PO SCH (09:33)
[2017-07-21] MEDS: LOVENOX INJ 40 MG SYR SC SCH (09:33)
[2017-07-21] MEDS: NYSTATIN POWDER TOP SCH (09:34)
[2017-07-21] MEDS: NEURONTIN CAP 300 MG PO SCH (09:34)
[2017-07-21] MEDS: PROTONIX TAB 40 MG PO SCH (09:35)
[2017-07-21] MEDS: VITAMIN D3 PO SCH (09:35)
[2017-07-21] MEDS: PLAVIX PO SCH (09:35)
[2017-07-21] MEDS: HumuLIN R SC PRN (11:49)
[2017-07-21 11:56] VITALS: BP 166/74
== END 2017-07-21 11:37 | disposition swing bed (61) | DRG 637 ==
LOC: MED/SURG 15:32
PROVIDERS: ADMIT Internal Medicine; ATTEND Internal Medicine
DX: E11.621 Type 2 diabetes mellitus with foot ulcer (principal); J81.0 Acute pulmonary edema; L97.528 Non-pressure chronic ulcer of other part of left foot with other specified severity; F33.8 Other recurrent depressive disorders; E11.59 Type 2 diabetes mellitus with other circulatory complications; E03.8 Other specified hypothyroidism; E55.9 Vitamin D deficiency, unspecified; E78.2 Mixed hyperlipidemia; I10 Essential (primary) hypertension; I25.10 Atherosclerotic heart disease of native coronary artery without angina pectoris; I50.9 Heart failure, unspecified; B96.5 Pseudomonas (aeruginosa) (mallei) (pseudomallei) as the cause of diseases classified elsewhere; B96.4 Proteus (mirabilis) (morganii) as the cause of diseases classified elsewhere; B95.62 Methicillin resistant Staphylococcus aureus infection as the cause of diseases classified elsewhere; R26.89 Other abnormalities of gait and mobility; R06.02 Shortness of breath; K21.0 Gastro-esophageal reflux disease with esophagitis
CPT/HCPCS: 36415; 36600; 71010; 71020; 73630; 73700; 73718; 80053; 81001; 82550; 82553; 82803; 84484; 85025; 85610; 85652; 86140; 87040; 87070; 87075; 87077; 87086; 87186; 87205; 87502; 93005; 93306; 93925; 94640; 94660; 94760; 94762; 99100; 99231; A4222; A4618; A7030; P9047; J1650; J1815; J1940; J1956; J2250; J2270; J2405; J3010; J3370; J3490; J7120; J7620

== ENCOUNTER 2017-07-21 11:37 | Inpatient (IN) | payer OTHER, MEDICARE ==
[2017-07-21] MEDS: XOPENEX 1.25 MG/3 ML NEBULE NEB SCH ×3 (12:30→20:42)
[2017-07-21] MEDS ORDERED: ROBITUSSIN DM PO PRN (14:36)
[2017-07-21] MEDS: NORCO 5/325 MG TAB PO SCH ×2 (15:06→21:54)
[2017-07-21] MEDS: LEVAQUIN PREMIX IV 750 MG 750 MG/150 ML BAG IV SCH (15:06)
[2017-07-21] MEDS: BACTRIM DS TAB PO SCH (15:06)
[2017-07-21] MEDS ORDERED: XOPENEX 1.25 MG/3 ML NEBULE NEB ONE (16:19)
[2017-07-21] MEDS: HumuLIN R SC PRN ×2 (17:00→22:09)
[2017-07-21] MEDS ORDERED: DUONEB 0.5 MG/3 MG NEB PRN (17:36)
[2017-07-21] MEDS: SNACK - Diabetic Appropriate PO SCH ×2 (17:49→22:12)
[2017-07-21] MEDS: ZOCOR TAB 40 MG PO SCH (21:53)
[2017-07-21] MEDS: COREG TAB 3.125 MG PO SCH (21:54)
[2017-07-21] MEDS: NEURONTIN CAP 300 MG PO SCH (21:54)
[2017-07-21] MEDS: NEURONTIN CAP 400 MG PO SCH (21:54)
[2017-07-21] MEDS: NYSTATIN POWDER TOP SCH (21:56)
[2017-07-21] MEDS: GENTAMICIN TOPICAL OINT TOP SCH (21:58)
[2017-07-21] MEDS: LANTUS SC SCH (22:08)
[2017-07-21] MEDS: MILK OF MAGNESIA PO SCH (22:12)
[2017-07-22] MEDS: NORCO 10/325 TAB PO PRN (00:35)
[2017-07-22] MEDS: BACTRIM DS TAB PO SCH ×2 (03:05→15:11)
[2017-07-22] MEDS: NORCO 5/325 MG TAB PO SCH ×4 (03:06→21:13)
[2017-07-22] MEDS: HumuLIN R SC PRN ×3 (05:59→21:13)
[2017-07-22] MEDS: LANTUS SC SCH ×2 (10:01→21:15)
[2017-07-22] MEDS: PROTONIX TAB 40 MG PO SCH (10:03)
[2017-07-22] MEDS: ASPIRIN EC 81 MG PO SCH (10:03)
[2017-07-22] MEDS: NEURONTIN CAP 300 MG PO SCH ×2 (10:03→21:13)
[2017-07-22] MEDS: PLAVIX PO SCH (10:04)
[2017-07-22] MEDS: VITAMIN D3 PO SCH (10:04)
[2017-07-22] MEDS: EFFEXOR XR 75 MG CAP PO SCH (10:05)
[2017-07-22] MEDS: COREG TAB 3.125 MG PO SCH ×2 (10:05→21:13)
[2017-07-22] MEDS: NYSTATIN POWDER TOP SCH ×2 (10:06→21:20)
[2017-07-22] MEDS: GENTAMICIN TOPICAL OINT TOP SCH ×2 (10:07→21:19)
[2017-07-22] MEDS: XOPENEX 1.25 MG/3 ML NEBULE NEB SCH ×3 (11:40→20:56)
[2017-07-22] MEDS: ZOCOR TAB 40 MG PO SCH (21:13)
[2017-07-22] MEDS: NEURONTIN CAP 400 MG PO SCH (21:13)
[2017-07-22] MEDS: MILK OF MAGNESIA PO SCH (21:19)
[2017-07-22] MEDS: SNACK - Diabetic Appropriate PO SCH (21:20)
[2017-07-23] MEDS: NORCO 5/325 MG TAB PO SCH ×4 (03:17→21:25)
[2017-07-23] MEDS: BACTRIM DS TAB PO SCH ×2 (03:17→14:34)
[2017-07-23] MEDS: XOPENEX 1.25 MG/3 ML NEBULE NEB SCH ×4 (08:22→22:02)
[2017-07-23] MEDS: VITAMIN D3 PO SCH (09:43)
[2017-07-23] MEDS: ASPIRIN EC 81 MG PO SCH (09:44)
[2017-07-23] MEDS: PROTONIX TAB 40 MG PO SCH (09:44)
[2017-07-23] MEDS: NEURONTIN CAP 300 MG PO SCH (09:44)
[2017-07-23] MEDS: EFFEXOR XR 75 MG CAP PO SCH (09:44)
[2017-07-23] MEDS: PLAVIX PO SCH (09:45)
[2017-07-23] MEDS: COREG TAB 3.125 MG PO SCH ×2 (09:45→21:25)
[2017-07-23] MEDS: LANTUS SC SCH ×2 (09:46→21:25)
[2017-07-23] MEDS: NYSTATIN POWDER TOP SCH ×2 (09:48→21:38)
[2017-07-23] MEDS: GENTAMICIN TOPICAL OINT TOP SCH ×2 (09:48→21:37)
[2017-07-23] MEDS: LEVAQUIN PREMIX IV 750 MG 750 MG/150 ML BAG IV SCH (14:34)
[2017-07-23] MEDS: NORCO 10/325 TAB PO PRN (18:47)
[2017-07-23] MEDS: NEURONTIN CAP 400 MG PO SCH (21:24)
[2017-07-23] MEDS: ZOCOR TAB 40 MG PO SCH (21:24)
[2017-07-23] MEDS: SNACK - Diabetic Appropriate PO SCH (21:36)
[2017-07-23] MEDS: MILK OF MAGNESIA PO SCH (21:37)
[2017-07-24] MEDS: BACTRIM DS TAB PO SCH ×2 (02:04→15:00)
[2017-07-24] MEDS: NORCO 5/325 MG TAB PO SCH ×4 (02:05→21:34)
[2017-07-24 06:32] LABS: BASOPHILS # (AUTO) 0.1 X10^3/uL (0.0-0.1); EOSINOPHILS # (AUTO) 0.4 x10^3/uL (0.0-0.2); EOSINOPHILS % (AUTO) 5.4 % (0.9-2.9); HEMATOCRIT 21.8 % (36.0-47.0); HEMOGLOBIN 7.3 g/dL (12.0-16.0); LYMPHOCYTES # (AUTO) 1.1 X10^3/uL (1.3-2.9); MEAN CORPUSCULAR HEMOGLOBIN 30.2 pg (27.0-34.0); MEAN CORPUSCULAR HGB CONC 33.6 g/dL (33.0-35.0); MEAN CORPUSCULAR VOLUME 89.8 fL (80.0-100.0); MEAN PLATELET VOLUME 7.6 fL (7.4-11.0); MONOCYTES # (AUTO) 0.8 x10^3/uL (0.3-0.8); NEUTROPHILS # (AUTO) 5.8 x10^3/uL (2.2-4.8); NEUTROPHILS % (AUTO) 70.6 % (42.0-75.0); PLATELET COUNT 268 X10^3/uL (150.0-450.0); RED BLOOD COUNT 2.43 X10^6/uL (3.5-5.4); RED CELL DISTRIBUTION WIDTH 15.5 % (11.6-16.5); WHITE BLOOD COUNT 8.2 X10^3/uL (3.6-10.0)
[2017-07-24 06:43] LABS: ALANINE AMINOTRANSFERASE 14 Units/L (12-78); ALBUMIN 3.9 g/dL (3.4-5.0); ALKALINE PHOSPHATASE 51 Units/L (46-116); ASPARTATE AMINO TRANSFERASE 15 Units/L (15-37); BLOOD UREA NITROGEN 69 mg/dL (7-18); CALCIUM 9.2 mg/dL (8.5-10.1); CHLORIDE 100 mmol/L (98-107); COR NA(FOR HYPERGLY) 140 mmol/L (136-145); CREATININE 2.55 mg/dL (0.55-1.02); SODIUM 139 mmol/L (136-145); TOTAL PROTEIN 6.6 g/dL (6.4-8.2); eGFR BLACK RACES 23 (>60); eGFR NON BLACK RACES 19 (>60)
[2017-07-24 06:57] LABS: HYPOCHROMASIA 1+; MICROCYTOSIS 1+; PLATELET MORPHOLOGY COMMENT NORMAL (NORMAL)
[2017-07-24] MEDS: ASPIRIN EC 81 MG PO SCH (08:39)
[2017-07-24] MEDS: VITAMIN D3 PO SCH (08:39)
[2017-07-24] MEDS: COREG TAB 3.125 MG PO SCH ×2 (08:40→21:34)
[2017-07-24] MEDS: EFFEXOR XR 75 MG CAP PO SCH (08:40)
[2017-07-24] MEDS: GENTAMICIN TOPICAL OINT TOP SCH ×2 (08:40→21:39)
[2017-07-24] MEDS: NEURONTIN CAP 300 MG PO SCH ×2 (08:41→13:41)
[2017-07-24] MEDS: PLAVIX PO SCH (08:42)
[2017-07-24] MEDS: LANTUS SC SCH ×2 (08:42→21:34)
[2017-07-24] MEDS: NYSTATIN POWDER TOP SCH ×2 (08:42→21:40)
[2017-07-24] MEDS: PROTONIX TAB 40 MG PO SCH (08:43)
[2017-07-24] MEDS: XOPENEX 1.25 MG/3 ML NEBULE NEB SCH ×4 (09:13→21:28)
[2017-07-24] MEDS: ZOFRAN TAB 4 MG PO PRN ×2 (11:47→21:33)
[2017-07-24] MEDS: CLEOCIN PO SCH ×2 (18:00→21:33)
[2017-07-24] MEDS: ZOCOR TAB 40 MG PO SCH (21:33)
[2017-07-24] MEDS: NEURONTIN CAP 400 MG PO SCH (21:34)
[2017-07-24] MEDS: MILK OF MAGNESIA PO SCH (21:39)
[2017-07-24] MEDS: SNACK - Diabetic Appropriate PO SCH (21:39)
[2017-07-24] MEDS: NORCO 10/325 TAB PO PRN (22:40)
[2017-07-25] MEDS: NORCO 5/325 MG TAB PO SCH ×5 (01:21→22:27)
[2017-07-25] MEDS ORDERED: NEURONTIN CAP 100 MG PO ONE (08:15)
[2017-07-25] MEDS: PLAVIX PO SCH (08:31)
[2017-07-25] MEDS: CLEOCIN PO SCH ×4 (08:31→22:26)
[2017-07-25] MEDS: COLACE CAP 100 MG PO SCH ×2 (08:32→22:25)
[2017-07-25] MEDS: EFFEXOR XR 75 MG CAP PO SCH (08:33)
[2017-07-25] MEDS: ASPIRIN EC 81 MG PO SCH (08:33)
[2017-07-25] MEDS: NEURONTIN CAP 300 MG PO SCH ×2 (08:33→14:52)
[2017-07-25] MEDS: PROTONIX TAB 40 MG PO SCH (08:33)
[2017-07-25] MEDS: COREG TAB 3.125 MG PO SCH ×2 (08:34→22:27)
[2017-07-25] MEDS: LANTUS SC SCH ×2 (08:34→22:29)
[2017-07-25] MEDS: ZOFRAN TAB 4 MG PO PRN (08:34)
[2017-07-25] MEDS: MIRALAX POWDER (1 DOSE 17GM) PO SCH ×2 (08:36→22:28)
[2017-07-25] MEDS: VITAMIN D3 PO SCH (08:41)
[2017-07-25] MEDS: NYSTATIN POWDER TOP SCH ×2 (08:41→22:28)
[2017-07-25] MEDS: GENTAMICIN TOPICAL OINT TOP SCH ×2 (08:42→22:28)
[2017-07-25] MEDS: XOPENEX 1.25 MG/3 ML NEBULE NEB SCH ×4 (09:15→20:55)
[2017-07-25] MEDS ORDERED: NORCO 5/325 MG TAB PO ONE (09:36)
[2017-07-25] MEDS ORDERED: FLEET ENEMA ADULT PR ONE (10:49)
[2017-07-25] MEDS: ZOFRAN INJ 4 MG VIAL IVP PRN (12:44)
[2017-07-25 13:01] LABS: BASOPHILS # (AUTO) 0.1 X10^3/uL (0.0-0.1); BASOPHILS % (AUTO) 0.7 % (0.2-1.0); EOSINOPHILS # (AUTO) 0.4 x10^3/uL (0.0-0.2); EOSINOPHILS % (AUTO) 5.1 % (0.9-2.9); HEMATOCRIT 22.9 % (36.0-47.0); HEMOGLOBIN 7.6 g/dL (12.0-16.0); LYMPHOCYTES # (AUTO) 0.9 X10^3/uL (1.3-2.9); LYMPHOCYTES % (AUTO) 10.9 % (21.0-51.0); MEAN CORPUSCULAR HEMOGLOBIN 30.1 pg (27.0-34.0); MEAN CORPUSCULAR HGB CONC 33.4 g/dL (33.0-35.0); MEAN CORPUSCULAR VOLUME 90.1 fL (80.0-100.0); MEAN PLATELET VOLUME 6.9 fL (7.4-11.0); MONOCYTES # (AUTO) 0.8 x10^3/uL (0.3-0.8); MONOCYTES % (AUTO) 8.9 % (0.0-13.0); NEUTROPHILS # (AUTO) 6.2 x10^3/uL (2.2-4.8); NEUTROPHILS % (AUTO) 74.4 % (42.0-75.0); PLATELET COUNT 284 X10^3/uL (150.0-450.0); RED BLOOD COUNT 2.54 X10^6/uL (3.5-5.4); RED CELL DISTRIBUTION WIDTH 15.4 % (11.6-16.5); WHITE BLOOD COUNT 8.4 X10^3/uL (3.6-10.0)
[2017-07-25 13:07] LABS: ANISOCYTOSIS SLIGHT; HYPOCHROMASIA SLIGHT; MICROCYTOSIS SLIGHT; PLATELET MORPHOLOGY COMMENT NORMAL (NORMAL)
[2017-07-25 13:10] LABS: ALANINE AMINOTRANSFERASE 15 Units/L (12-78); ALBUMIN 3.9 g/dL (3.4-5.0); ALKALINE PHOSPHATASE 57 Units/L (46-116); ASPARTATE AMINO TRANSFERASE 20 Units/L (15-37); BLOOD UREA NITROGEN 69 mg/dL (7-18); CARBON DIOXIDE 32.2 mmol/L (21-32); CHLORIDE 100 mmol/L (98-107); CREATININE 2.67 mg/dL (0.55-1.02); MAGNESIUM 2.3 mg/dL (1.7-2.9); SODIUM 137 mmol/L (136-145); TOTAL PROTEIN 6.9 g/dL (6.4-8.2); eGFR BLACK RACES 22 (>60); eGFR NON BLACK RACES 18 (>60)
--- NOTE | 2017-07-25 13:41 | RAD ---
Examination: KUB History: Nausea and vomiting Findings: The intestinal gas pattern is nonobstructive. There is no significant distention. No defin ite ascites, mass formation or pathologic calcification. The there are changes in the lung bases cons istent with small pleural effusions. Impression: No acute abdominal process identified. See above. Reported By:
[2017-07-25] MEDS ORDERED: REGLAN INJ 10 MG VIAL IVP ONE (13:45)
[2017-07-25] MEDS: NORCO 10/325 TAB PO PRN (14:52)
[2017-07-25 16:09] LABS: BILIRUBIN,URINE NEGATIVE (NEGATIVE); BLOOD/HEMOGLOBIN,URINE 2+ (NEGATIVE); GLUCOSE, URINE NEGATIVE (NEGATIVE); KETONES,URINE NEGATIVE (NEGATIVE); LEUKOCYTE ESTERASE ,URINE 3+ (NEGATIVE); NITRITES,URINE NEGATIVE (NEGATIVE); PROTEIN,URINE 3+ (NEGATIVE); UROBILINOGEN,URINE NORMAL (NORMAL)
[2017-07-25 16:45] LABS: APPEARANCE,URINE TURBID (CLEAR); COLOR,URINE YELLOW (YELLOW)
[2017-07-25 17:15] LABS: AMORPHOUS SEDIMENT,UR 1+ /HPF (NEGATIVE); BACTERIA,URINE TRACE /HPF (NEGATIVE); RBC,URINE 0 - 4 /HPF (NEGATIVE); RENAL EPITHELIAL CELLS,URINE RARE /HPF (NEGATIVE); SQUAMOUS EPITHELIAL CELL,UR RARE /HPF (NEGATIVE)
[2017-07-25 17:16] LABS: YEAST,URINE FEW /HPF (NEGATIVE)
[2017-07-25] MEDS ORDERED: PHARMACY CONSULT - DOSE _____ XX SCH (20:00)
[2017-07-25] MEDS: SNACK - Diabetic Appropriate PO SCH (20:15)
[2017-07-25] MEDS ORDERED: FORTAZ or TAZICEF INJ 1 GM in NS 50 ML IV + SPIKE MINIBAG* 50 ML IV SCH (22:00)
[2017-07-25] MEDS: NEURONTIN CAP 400 MG PO SCH (22:26)
[2017-07-25] MEDS: ZOCOR TAB 40 MG PO SCH (22:27)
[2017-07-25] MEDS ORDERED: NS 50 ML IV 50 ML IV ONE (22:36)
[2017-07-25] MEDS ORDERED: FORTAZ or TAZICEF INJ ONE (22:37)
[2017-07-26 05:34] LABS: ALANINE AMINOTRANSFERASE 14 Units/L (12-78); ALBUMIN 3.7 g/dL (3.4-5.0); ALKALINE PHOSPHATASE 55 Units/L (46-116); ASPARTATE AMINO TRANSFERASE 18 Units/L (15-37); BLOOD UREA NITROGEN 67 mg/dL (7-18); CARBON DIOXIDE 31.6 mmol/L (21-32); CHLORIDE 99 mmol/L (98-107); CREATININE 2.44 mg/dL (0.55-1.02); SODIUM 135 mmol/L (136-145); TOTAL PROTEIN 6.7 g/dL (6.4-8.2); eGFR BLACK RACES 24 (>60); eGFR NON BLACK RACES 20 (>60)
[2017-07-26] MEDS: NORCO 5/325 MG TAB PO SCH ×4 (05:37→21:55)
[2017-07-26 05:47] LABS: BASOPHILS # (AUTO) 0.1 X10^3/uL (0.0-0.1); BASOPHILS % (AUTO) 0.7 % (0.2-1.0); EOSINOPHILS # (AUTO) 0.5 x10^3/uL (0.0-0.2); EOSINOPHILS % (AUTO) 6.3 % (0.9-2.9); HEMATOCRIT 22.2 % (36.0-47.0); HEMOGLOBIN 7.3 g/dL (12.0-16.0); LYMPHOCYTES # (AUTO) 0.9 X10^3/uL (1.3-2.9); LYMPHOCYTES % (AUTO) 12.5 % (21.0-51.0); MEAN CORPUSCULAR HEMOGLOBIN 29.8 pg (27.0-34.0); MEAN CORPUSCULAR HGB CONC 33.1 g/dL (33.0-35.0); MEAN PLATELET VOLUME 7.7 fL (7.4-11.0); MONOCYTES # (AUTO) 0.7 x10^3/uL (0.3-0.8); MONOCYTES % (AUTO) 9.4 % (0.0-13.0); NEUTROPHILS # (AUTO) 5.2 x10^3/uL (2.2-4.8); NEUTROPHILS % (AUTO) 71.1 % (42.0-75.0); PLATELET COUNT 262 X10^3/uL (150.0-450.0); RED BLOOD COUNT 2.47 X10^6/uL (3.5-5.4); RED CELL DISTRIBUTION WIDTH 15.4 % (11.6-16.5); WHITE BLOOD COUNT 7.4 X10^3/uL (3.6-10.0)
[2017-07-26 06:12] LABS: PLATELET MORPHOLOGY COMMENT NORMAL (NORMAL)
--- NOTE | 2017-07-26 08:45 | RAD ---
HISTORY: Nonproductive cough. Study: Portable chest. Comparison: Chest x-ray dated July 21, 2017. Findings: The trachea is midline. The cardiac silhouette is enlarged without overt signs of failure. Persisten t small bilateral pleural effusions. Likely associated compressive atelectasis. No obvious pneumothor ax. The bony thorax is unremarkable. IMPRESSION: No significant change from prior. Reported By:
[2017-07-26] MEDS: GENTAMICIN TOPICAL OINT TOP SCH ×2 (09:00→21:56)
[2017-07-26] MEDS: CLEOCIN PO SCH ×4 (09:29→21:55)
[2017-07-26] MEDS: VITAMIN D3 PO SCH (09:29)
[2017-07-26] MEDS: COLACE CAP 100 MG PO SCH ×2 (09:29→21:55)
[2017-07-26] MEDS: NEURONTIN CAP 300 MG PO SCH ×2 (09:29→12:30)
[2017-07-26] MEDS: PROTONIX TAB 40 MG PO SCH (09:30)
[2017-07-26] MEDS: ASPIRIN EC 81 MG PO SCH (09:30)
[2017-07-26] MEDS: COREG TAB 3.125 MG PO SCH ×2 (09:30→21:55)
[2017-07-26] MEDS: EFFEXOR XR 75 MG CAP PO SCH (09:30)
[2017-07-26] MEDS: PLAVIX PO SCH (09:33)
[2017-07-26] MEDS: NYSTATIN POWDER TOP SCH ×2 (09:35→21:58)
[2017-07-26] MEDS: LANTUS SC SCH ×2 (09:36→21:57)
[2017-07-26] MEDS: XOPENEX 1.25 MG/3 ML NEBULE NEB SCH ×4 (09:47→21:12)
[2017-07-26] MEDS: VSL#3 PO SCH (09:53)
--- NOTE | 2017-07-26 10:54 | DR.UPDATE ---
H&P Update History and Physical Update: 'S H&P WAS COMPLETED WITH HER ADMISSION ON 07/08/17. SHE WAS CHANGED TO SWINGBED STATUS TODAY FOR CONTINUED TREATMENT OF INFECTED DIABETIC ULCER TO THE LEFT GREAT TOE AND OSTEOMYELITIS. PATIENT WILL ALSO CONTINUE WITH PHYSICAL THERAPY WHILE ON SWINGBED STATUS. WOUND CULTURES ON 07/08/17 REPORTED GROWTH OF PROTEUS MIRABILIS, STAPHYLOCOCCUS AUREUS, AND STENOTROPHOMONAS MALTOPHILIA FOR WHICH WE WERE TREATING WITH LEVAQUIN 750MG IV Q48 HOURS AND BACTRIM PO DAILY. WOUND WAS RECULTURED ON 07/20/17. RESULTS ARE PENDING. WE PLAN TO CONTINUE WITH IV ANTIBIOTICS AND WOUND CARE. WE WILL FOLLOW UP WITH LABS AND CONTINUE TO MONITOR PATIENT. Changes noted: NO Yes with the following:
[2017-07-26] MEDS: NORCO 10/325 TAB PO PRN (17:59)
[2017-07-26] MEDS: FORTAZ or TAZICEF INJ 1 GM in NS 50 ML IV 50 ML IV SCH (21:54)
[2017-07-26] MEDS: ZOCOR TAB 40 MG PO SCH (21:55)
[2017-07-26] MEDS: NEURONTIN CAP 400 MG PO SCH (21:55)
[2017-07-26] MEDS: MIRALAX POWDER (1 DOSE 17GM) PO SCH (21:56)
[2017-07-26] MEDS: SNACK - Diabetic Appropriate PO SCH (21:56)
[2017-07-27] MEDS: NORCO 5/325 MG TAB PO SCH ×4 (03:39→21:51)
[2017-07-27 06:16] LABS: BASOPHILS # (AUTO) 0.1 X10^3/uL (0.0-0.1); BASOPHILS % (AUTO) 1.1 % (0.2-1.0); EOSINOPHILS # (AUTO) 0.4 x10^3/uL (0.0-0.2); EOSINOPHILS % (AUTO) 6.9 % (0.9-2.9); HEMATOCRIT 21.4 % (36.0-47.0); HEMOGLOBIN 7.1 g/dL (12.0-16.0); LYMPHOCYTES # (AUTO) 0.9 X10^3/uL (1.3-2.9); LYMPHOCYTES % (AUTO) 14.2 % (21.0-51.0); MEAN CORPUSCULAR HEMOGLOBIN 29.9 pg (27.0-34.0); MEAN CORPUSCULAR HGB CONC 33.2 g/dL (33.0-35.0); MEAN CORPUSCULAR VOLUME 90.2 fL (80.0-100.0); MEAN PLATELET VOLUME 7.7 fL (7.4-11.0); MONOCYTES # (AUTO) 0.7 x10^3/uL (0.3-0.8); MONOCYTES % (AUTO) 10.9 % (0.0-13.0); NEUTROPHILS # (AUTO) 4.2 x10^3/uL (2.2-4.8); NEUTROPHILS % (AUTO) 66.9 % (42.0-75.0); PLATELET COUNT 269 X10^3/uL (150.0-450.0); RED BLOOD COUNT 2.37 X10^6/uL (3.5-5.4); RED CELL DISTRIBUTION WIDTH 15.4 % (11.6-16.5); WHITE BLOOD COUNT 6.3 X10^3/uL (3.6-10.0)
[2017-07-27 06:18] LABS: ALANINE AMINOTRANSFERASE 13 Units/L (12-78); ALBUMIN 3.5 g/dL (3.4-5.0); ALKALINE PHOSPHATASE 58 Units/L (46-116); ASPARTATE AMINO TRANSFERASE 13 Units/L (15-37); BLOOD UREA NITROGEN 59 mg/dL (7-18); CALCIUM 8.9 mg/dL (8.5-10.1); CARBON DIOXIDE 30.2 mmol/L (21-32); CHLORIDE 100 mmol/L (98-107); COR NA(FOR HYPERGLY) 137 mmol/L (136-145); CREATININE 2.31 mg/dL (0.55-1.02); SODIUM 136 mmol/L (136-145); TOTAL PROTEIN 6.5 g/dL (6.4-8.2); eGFR BLACK RACES 26 (>60); eGFR NON BLACK RACES 21 (>60)
[2017-07-27 06:54] LABS: PLATELET MORPHOLOGY COMMENT NORMAL (NORMAL)
[2017-07-27] MEDS: PROTONIX TAB 40 MG PO SCH (08:41)
[2017-07-27] MEDS: VSL#3 PO SCH (08:42)
[2017-07-27] MEDS: COREG TAB 3.125 MG PO SCH ×2 (08:42→21:51)
[2017-07-27] MEDS: CLEOCIN PO SCH ×4 (08:42→21:51)
[2017-07-27] MEDS: VITAMIN D3 PO SCH (08:42)
[2017-07-27] MEDS: ASPIRIN EC 81 MG PO SCH (08:42)
[2017-07-27] MEDS: EFFEXOR XR 75 MG CAP PO SCH (08:42)
[2017-07-27] MEDS: COLACE CAP 100 MG PO SCH ×2 (08:42→21:50)
[2017-07-27] MEDS: NEURONTIN CAP 300 MG PO SCH ×2 (08:42→12:11)
[2017-07-27] MEDS: PLAVIX PO SCH (08:43)
[2017-07-27] MEDS: NYSTATIN POWDER TOP SCH ×2 (08:45→21:54)
[2017-07-27] MEDS: GENTAMICIN TOPICAL OINT TOP SCH ×2 (08:46→21:54)
[2017-07-27] MEDS: LANTUS SC SCH ×2 (08:52→21:53)
[2017-07-27] MEDS: XOPENEX 1.25 MG/3 ML NEBULE NEB SCH ×4 (09:34→21:11)
[2017-07-27] MEDS: HEMOCYTE-PLUS PO SCH (12:11)
--- NOTE | 2017-07-27 12:45 | PCM.PROG ---
Progress Note - Progress Note for Day of Date: 07/26/17 - Subjective Subjective: WAS ADMITTED FOR [facility] FOR PHYSICAL THERAPY, IV ANTIBIOTICS, AND WOUND CARE FOR WOUND TO THE LEFT GREAT TOE. TODAY, SHE IS ALERT AND ORIENTED, LYING IN BED ON MORNING ROUNDS. SHE IS NOTED WITH COMPLAINTS OF PAIN TO THE LEFT FOOT AND WEAKNESS. SHE ALSO CONTINUES WITH PERSISTENT SHORNTESS OF BREATH. ON EXAMINATION, LUNG ARE NOTED WITH WHEEZING IN BILATERAL LUNG [place]OW[place]URY. ABDOMEN IS ROUND, SOFT, AND NON-TENDER WITH NORMAL BOWEL SOUNDS NOTED IN ALL QUADRANTS. LEFT FOOT IS NOTED WITH A YASMIN DRESSING. DRESSING REMOVED TO ASSESS WOUND. WOUND IS DRY WITH NO DRAINAGE NOTED. NO SIGNS OF INFECTION NOTED AT THIS TIME. NO FEVER NOTED. PATIENT REPORTS ABDOMINAL PAIN OVER THE WEEKEND. KUB REPORTED NO ACUTE ABDOMINAL PROCESS. HER VITAL SIGNS THIS MORNING ARE 97.7-76-20-100%-113/58. ABNORMAL LAB VALUES INCLUDE THE FOLLOWING: RBC 2.47, HGB 7.3, HCT 22.2, SODIUM 135, BUN 67, CREATININE 2.44, GLUCOSE 105. A CHEST XRAY WAS OBTAINED TODAY AND REPORTED PERSISTENT SMALL BILATERAL PLEURAL EFFUSIONS LIKELY ASSOCIATED WITH COMPRESSIVE ATELECTASIS. LIKELY ASSOCIATED COMPRESSIVE ATELECTASIS. URINALYSIS FROM YESTERDAY INDICATED THAT PATIENT HAS A URINARY TRACT INFECTION. WOUND CULTURES THAT WERE TAKEN ON 07/20/17 REPORTED GROWTH OF MRSA. ANTIBIOTICS WERE CHANGED TO FORTAZ AND CLINDAMYCIN OVER THE WEEKEND. STAFF REPORTS THAT PATIENT'S OXYGEN SATURATIONS FALL INTO THE 80S WHEN AMBULATING WITHOUT OXYGEN. WE WILL HAVE RESPIRATORY THERAPY EVALUATE PATIENT FOR HOME OXYGEN. PATIENT REPORTS BEING A SMOKER FOR SEVERAL YEARS WHEN SHE WAS YOUNGER. WE SUSPECT THAT IN ADDITION TO CHF, SHE MAY HAVE BE HAVING AN ACUTE EXACERBATION OF COPD. TODAY, WE WILL START PROBIOTICS DAILY. OTHERWISE, WE WILL CONTINUE WITH CURRENT PLAN OF CARE. WE WILL MONITOR LABS AND REASSESS HGB/HCT IN THE MORNING. - Past Medical Family Social History Past Med/Fam/Surg Hx: No changes since H&P Allergies: Allergies ezetimibe [From Zetia] Allergy (Verified 07/08/17 18:25) Influenza Virus Vaccines Allergy (Verified 07/08/17 18:25) Penicillins Allergy (Verified 07/08/17 18:25) pneumococcal vaccine Allergy (Verified 07/08/17 18:25) ropinirole [From Requip] Allergy (Verified 07/08/17 18:25) - Review of Systems ROS: No change since H&P - Vital Signs and I&O's Vital Signs: Temperature 97.4 F Pulse Rate [Right Brachial] 71 Pulse Rate 86 Respiratory Rate 20 Blood Pressure [Left Arm] 121/57 Blood Pressure [Right Arm] 129/56 Blood Pressure 166/74 O2 Sat by Pulse Oximetry 99 Intake and Output: Intake & Output 07/25/17 07/26/17 07/27/17 07/28/17 11:59 11:59 11:59 11:59 Intake Total 1370 1412 Output Total 1325 1500 Balance 45 -88 - Physical Exam Oriented: Normal Eyes: Normal Ear: Normal Nose: Normal Throat: Normal Respiratory: Right, Left, Generalized, Diminished, Wheezes Cardiovascular: Normal : Normal Auscultation: Bowel Sounds: Normal Palpation: Normal Tenderness: Suprapubic Skin: Normal (LEFT GREAT TOE DIABETIC ULCER ), Wound Musculoskeletal: Left, Foot, Tender, Instability Psychiatric: Normal Mood Description: Calm Affect: Normal Speech Pattern: Clear, Appropriate - Laboratory and Diagnostics Result Diagrams: 08/03/17 04:45 08/03/17 04:45 Labs: 07/25/17 16:21 Urine,[place] Urine Culture - Final Laboratory WBC 6.3 X10^3/uL (3.6-10.0) 07/27/17 05:21 RBC 2.37 X10^6/uL (3.5-5.4) L 07/27/17 05:21 Hgb 7.1 g/dL (12.0-16.0) L 07/27/17 05:21 Hct 21.4 % (36.0-47.0) L 07/27/17 05:21 MCV 90.2 fL (80.0-100.0) 07/27/17 05:21 MCH 29.9 pg (27.0-34.0) 07/27/17 05:21 MCHC 33.2 g/dL (33.0-35.0) 07/27/17 05:21 RDW 15.4 % (11.6-16.5) 07/27/17 05:21 Plt Count 269 X10^3/uL (150.0-450.0) 07/27/17 05:21 Plt Count Comment Adequate (ADEQUATE) 07/27/17 05:21 MPV 7.7 fL (7.4-11.0) 07/27/17 05:21 Neut % 66.9 % (42.0-75.0) 07/27/17 05:21 Lymph % 14.2 % (21.0-51.0) L 07/27/17 05:21 [place] % 10.9 % (0.0-13.0) 07/27/17 05:21 Eos % 6.9 % (0.9-2.9) H 07/27/17 05:21 Baso % 1.1 % (0.2-1.0) H 07/27/17 05:21 Neut # 4.2 x10^3/uL (2.2-4.8) 07/27/17 05:21 Lymph # 0.9 X10^3/uL (1.3-2.9) L 07/27/17 05:21 [place] # 0.7 x10^3/uL (0.3-0.8) 07/27/17 05:21 Eos # 0.4 x10^3/uL (0.0-0.2) H 07/27/17 05:21 Baso # 0.1 X10^3/uL (0.0-0.1) 07/27/17 05:21 Absolute Nucleated RBC 0.0 /100WBC 07/27/17 05:21 Plt Morphology Comment Normal (NORMAL) 07/27/17 05:21 RBC Morphology Normal (NORMAL) 07/27/17 05:21 Hypochromasia Slight A 07/25/17 12:55 Anisocytosis Slight A 07/25/17 12:55 Microcytosis Slight A 07/25/17 12:55 Sodium 136 mmol/L (136-145) 07/27/17 05:21 Corrected Sodium 137 mmol/L (136-145) 07/27/17 05:21 Potassium 5.2 mmol/L (3.5-5.1) H 07/27/17 05:21 Chloride 100 mmol/L (98-107) 07/27/17 05:21 Carbon Dioxide 30.2 mmol/L (21-32) 07/27/17 05:21 BUN 59 mg/dL (7-18) H 07/27/17 05:21 Creatinine 2.31 mg/dL (0.55-1.02) H 07/27/17 05:21 Est GFR (MDRD) Af Amer 26 (>60) L 07/27/17 05:21 Est GFR (MDRD) Non-Af 21 (>60) L 07/27/17 05:21 Glucose 130 mg/dL (65-99) H 07/27/17 05:21 POC Glucose (mg/dL) 118 mg/dL (65-99) H 07/27/17 11:46 Lactic Acid 0.7 mmol/L (0.4-2.0) 07/25/17 19:26 Calcium 8.9 mg/dL (8.5-10.1) 07/27/17 05:21 Corrected Calcium TNP 07/27/17 05:21 Magnesium 2.3 mg/dL (1.7-2.9) 07/25/17 12:55 Total Bilirubin 0.20 mg/dL (0.2-1.0) 07/27/17 05:21 AST 13 Units/L (15-37) L 07/27/17 05:21 ALT 13 Units/L (12-78) 07/27/17 05:21 Alkaline Phosphatase 58 Units/L (46-116) 07/27/17 05:21 Total Protein 6.5 g/dL (6.4-8.2) 07/27/17 05:21 Albumin 3.5 g/dL (3.4-5.0) 07/27/17 05:21 Globulin 3.0 g/dL (2.5-4.5) 07/27/17 05:21 Albumin/Globulin Ratio 1.2 Ratio (1.1-2.1) 07/27/17 05:21 Specimen Type Catherized urine 07/25/17 16:01 Urine Color Yellow (YELLOW) 07/25/17 16:01 Urine Appearance Turbid (CLEAR) 07/25/17 16:01 Urine pH 5.0 (5.0 - 8.0) 07/25/17 16:01 Ur Specific [place] 1.015 (1.000-1.030) 07/25/17 16:01 Urine Protein 3+ (NEGATIVE) 07/25/17 16:01 Urine Glucose (UA) Negative (NEGATIVE) 07/25/17 16:01 Urine Ketones Negative (NEGATIVE) 07/25/17 16:01 Urine Occult Blood 2+ (NEGATIVE) 07/25/17 16:01 Urine Nitrite Negative (NEGATIVE) 07/25/17 16:01 Urine Bilirubin Negative (NEGATIVE) 07/25/17 16:01 Urine Urobilinogen Normal (NORMAL) 07/25/17 16:01 Ur Leukocyte Esterase 3+ (NEGATIVE) 07/25/17 16:01 Urine RBC 0 - 4 /HPF (NEGATIVE) 07/25/17 16:01 Urine WBC Tntc with clumps /HPF (NEGATIVE) 07/25/17 16:01 Ur Squamous Epith Cells Rare /HPF (NEGATIVE) 07/25/17 16:01 Ur Renal Epithelial Cell Rare /HPF (NEGATIVE) 07/25/17 16:01 Amorphous Sediment 1+ /HPF (NEGATIVE) 07/25/17 16:01 Urine Bacteria Trace /HPF (NEGATIVE) 07/25/17 16:01 Urine Yeast Few /HPF (NEGATIVE) 07/25/17 16:01 Ur Culture Indicated? Yes/culture set up 07/25/17 16:01 - Plan (1) Diabetic ulcer of left great toe Status: Acute Plan: CONTINUE IV ANTIBIOTICS, WOUND CARE, PHYSICAL THERAPY, CONTINUE TO MONITOR (2) MRSA (methicillin resistant Staphylococcus aureus) Status: Acute Plan: CONTINUE IV ANTIBIOTICS, CONTINUE TO MONITOR (3) Urinary tract infection Status: Acute Qualifiers: Urinary tract infection type: acute cystitis Hematuria presence: without hematuria Qualified Code(s): N30.00 - Acute cystitis without hematuria Plan: CONTINUE IV ANTIBIOTICS, CONTINUE TO MONITOR (4) CHF (congestive heart failure) Status: Chronic Qualifiers: Congestive heart failure chronicity: acute on chronic Plan: CONTINUE DUONEBS, CONTINUE COREG 3.125MG PO BID, CONTINUE TO MONITOR LABS AND CHEST XRAY (5) COPD with acute exacerbation Status: Acute Plan: CONTINUE DUONEBS, CONTINUE TO MONITOR LABS AND CHEST XRAY
[2017-07-27] MEDS: NORCO 10/325 TAB PO PRN (13:22)
[2017-07-27] MEDS: ZOCOR TAB 40 MG PO SCH (21:51)
[2017-07-27] MEDS: NEURONTIN CAP 400 MG PO SCH (21:51)
[2017-07-27] MEDS: FORTAZ or TAZICEF INJ 1 GM in NS 50 ML IV 50 ML IV SCH (21:52)
[2017-07-27] MEDS: SNACK - Diabetic Appropriate PO SCH (21:54)
[2017-07-27] MEDS: MIRALAX POWDER (1 DOSE 17GM) PO SCH (21:54)
[2017-07-28] MEDS: NORCO 5/325 MG TAB PO SCH ×4 (03:58→20:58)
[2017-07-28] MEDS: NORCO 10/325 TAB PO PRN (05:24)
[2017-07-28 06:16] LABS: BASOPHILS # (AUTO) 0.1 X10^3/uL (0.0-0.1); BASOPHILS % (AUTO) 0.6 % (0.2-1.0); EOSINOPHILS # (AUTO) 0.5 x10^3/uL (0.0-0.2); EOSINOPHILS % (AUTO) 5.9 % (0.9-2.9); HEMOGLOBIN 7.7 g/dL (12.0-16.0); LYMPHOCYTES # (AUTO) 0.8 X10^3/uL (1.3-2.9); LYMPHOCYTES % (AUTO) 8.9 % (21.0-51.0); MEAN CORPUSCULAR HEMOGLOBIN 30.2 pg (27.0-34.0); MEAN CORPUSCULAR HGB CONC 33.6 g/dL (33.0-35.0); MEAN CORPUSCULAR VOLUME 89.8 fL (80.0-100.0); MEAN PLATELET VOLUME 7.8 fL (7.4-11.0); MONOCYTES # (AUTO) 0.7 x10^3/uL (0.3-0.8); MONOCYTES % (AUTO) 7.8 % (0.0-13.0); NEUTROPHILS # (AUTO) 6.7 x10^3/uL (2.2-4.8); NEUTROPHILS % (AUTO) 76.8 % (42.0-75.0); PLATELET COUNT 313 X10^3/uL (150.0-450.0); RED BLOOD COUNT 2.56 X10^6/uL (3.5-5.4); RED CELL DISTRIBUTION WIDTH 15.1 % (11.6-16.5); WHITE BLOOD COUNT 8.7 X10^3/uL (3.6-10.0)
[2017-07-28 06:24] LABS: ALANINE AMINOTRANSFERASE 12 Units/L (12-78); ALBUMIN 3.4 g/dL (3.4-5.0); ALKALINE PHOSPHATASE 57 Units/L (46-116); ASPARTATE AMINO TRANSFERASE 16 Units/L (15-37); BLOOD UREA NITROGEN 50 mg/dL (7-18); CALCIUM 9.1 mg/dL (8.5-10.1); CARBON DIOXIDE 31.3 mmol/L (21-32); CHLORIDE 103 mmol/L (98-107); COR NA(FOR HYPERGLY) 139 mmol/L (136-145); CREATININE 1.89 mg/dL (0.55-1.02); SODIUM 138 mmol/L (136-145); TOTAL PROTEIN 6.5 g/dL (6.4-8.2); eGFR BLACK RACES 33 (>60); eGFR NON BLACK RACES 27 (>60)
[2017-07-28 06:59] LABS: HYPOCHROMASIA SLIGHT; PLATELET MORPHOLOGY COMMENT NORMAL (NORMAL)
[2017-07-28] MEDS: XOPENEX 1.25 MG/3 ML NEBULE NEB SCH ×4 (09:04→20:51)
[2017-07-28] MEDS: PROTONIX TAB 40 MG PO SCH (09:46)
[2017-07-28] MEDS: NEURONTIN CAP 300 MG PO SCH ×2 (09:46→13:12)
[2017-07-28] MEDS: VSL#3 PO SCH (09:46)
[2017-07-28] MEDS: HEMOCYTE-PLUS PO SCH (09:46)
[2017-07-28] MEDS: ASPIRIN EC 81 MG PO SCH (09:47)
[2017-07-28] MEDS: CLEOCIN PO SCH ×4 (09:47→20:59)
[2017-07-28] MEDS: EFFEXOR XR 75 MG CAP PO SCH (09:47)
[2017-07-28] MEDS: PLAVIX PO SCH (09:47)
[2017-07-28] MEDS: COREG TAB 3.125 MG PO SCH ×2 (09:48→21:00)
[2017-07-28] MEDS: VITAMIN D3 PO SCH (09:48)
[2017-07-28] MEDS: COLACE CAP 100 MG PO SCH ×3 (09:49→21:00)
[2017-07-28] MEDS: LANTUS SC SCH ×2 (09:50→20:57)
[2017-07-28] MEDS: NYSTATIN POWDER TOP SCH ×2 (15:35→21:00)
[2017-07-28] MEDS: GENTAMICIN TOPICAL OINT TOP SCH ×2 (15:35→21:01)
[2017-07-28] MEDS: FORTAZ or TAZICEF INJ 1 GM in NS 50 ML IV 50 ML IV SCH (20:57)
[2017-07-28] MEDS: MIRALAX POWDER (1 DOSE 17GM) PO SCH (20:59)
[2017-07-28] MEDS: ZOCOR TAB 40 MG PO SCH (20:59)
[2017-07-28] MEDS: NEURONTIN CAP 400 MG PO SCH (21:00)
[2017-07-28] MEDS: SNACK - Diabetic Appropriate PO SCH (21:01)
[2017-07-29] MEDS: NORCO 5/325 MG TAB PO SCH ×4 (05:05→22:13)
[2017-07-29] MEDS: LANTUS SC SCH ×2 (09:00→22:25)
[2017-07-29] MEDS: XOPENEX 1.25 MG/3 ML NEBULE NEB SCH ×4 (09:37→21:00)
[2017-07-29] MEDS: ASPIRIN EC 81 MG PO SCH (09:50)
[2017-07-29] MEDS: PROTONIX TAB 40 MG PO SCH (09:50)
[2017-07-29] MEDS: HEMOCYTE-PLUS PO SCH (09:50)
[2017-07-29] MEDS: COLACE CAP 100 MG PO SCH ×2 (09:50→22:26)
[2017-07-29] MEDS: VITAMIN D3 PO SCH (09:50)
[2017-07-29] MEDS: CLEOCIN PO SCH ×4 (09:51→22:13)
[2017-07-29] MEDS: VSL#3 PO SCH (09:51)
[2017-07-29] MEDS: COREG TAB 3.125 MG PO SCH ×2 (09:51→22:12)
[2017-07-29] MEDS: EFFEXOR XR 75 MG CAP PO SCH (09:51)
[2017-07-29] MEDS: NYSTATIN POWDER TOP SCH ×2 (09:52→22:25)
[2017-07-29] MEDS: GENTAMICIN TOPICAL OINT TOP SCH ×2 (09:52→22:25)
[2017-07-29] MEDS: PLAVIX PO SCH (09:55)
[2017-07-29] MEDS: NEURONTIN CAP 300 MG PO SCH ×2 (11:26→15:30)
[2017-07-29] MEDS: NEURONTIN CAP 400 MG PO SCH (22:15)
[2017-07-29] MEDS: FORTAZ or TAZICEF INJ 1 GM in NS 50 ML IV 50 ML IV SCH (22:15)
[2017-07-29] MEDS: MIRALAX POWDER (1 DOSE 17GM) PO SCH (22:24)
[2017-07-29] MEDS: ZOCOR TAB 40 MG PO SCH (22:24)
[2017-07-29] MEDS: SNACK - Diabetic Appropriate PO SCH (22:26)
[2017-07-30] MEDS: NORCO 5/325 MG TAB PO SCH ×4 (03:23→21:15)
[2017-07-30] MEDS: XOPENEX 1.25 MG/3 ML NEBULE NEB SCH ×4 (08:46→20:27)
[2017-07-30] MEDS: PROTONIX TAB 40 MG PO SCH (09:26)
[2017-07-30] MEDS: ASPIRIN EC 81 MG PO SCH (09:26)
[2017-07-30] MEDS: VITAMIN D3 PO SCH (09:26)
[2017-07-30] MEDS: HEMOCYTE-PLUS PO SCH (09:27)
[2017-07-30] MEDS: COREG TAB 3.125 MG PO SCH ×2 (09:27→21:14)
[2017-07-30] MEDS: CLEOCIN PO SCH ×4 (09:27→21:15)
[2017-07-30] MEDS: COLACE CAP 100 MG PO SCH ×2 (09:27→21:27)
[2017-07-30] MEDS: EFFEXOR XR 75 MG CAP PO SCH (09:27)
[2017-07-30] MEDS: PLAVIX PO SCH (09:27)
[2017-07-30] MEDS: NEURONTIN CAP 300 MG PO SCH ×2 (09:28→13:30)
[2017-07-30] MEDS: VSL#3 PO SCH (09:28)
[2017-07-30] MEDS: LANTUS SC SCH ×2 (09:28→22:06)
[2017-07-30] MEDS: NYSTATIN POWDER TOP SCH ×2 (09:29→21:26)
[2017-07-30] MEDS: GENTAMICIN TOPICAL OINT TOP SCH ×2 (09:29→21:27)
[2017-07-30] MEDS: MAALOX or MYLANTA PO PRN (18:39)
[2017-07-30] MEDS: LEVSIN/MAALOX/LIDOC VISC PO PRN (20:30)
[2017-07-30] MEDS: NEURONTIN CAP 400 MG PO SCH (21:14)
[2017-07-30] MEDS: ZOCOR TAB 40 MG PO SCH (21:15)
[2017-07-30] MEDS: FORTAZ or TAZICEF INJ 1 GM in NS 50 ML IV 50 ML IV SCH (21:15)
[2017-07-30] MEDS: MIRALAX POWDER (1 DOSE 17GM) PO SCH (21:27)
[2017-07-30] MEDS: SNACK - Diabetic Appropriate PO SCH (21:27)
[2017-07-31 05:51] LABS: BASOPHILS # (AUTO) 0.1 X10^3/uL (0.0-0.1); EOSINOPHILS # (AUTO) 0.6 x10^3/uL (0.0-0.2); EOSINOPHILS % (AUTO) 7.3 % (0.9-2.9); HEMATOCRIT 22.3 % (36.0-47.0); HEMOGLOBIN 7.5 g/dL (12.0-16.0); LYMPHOCYTES # (AUTO) 1.2 X10^3/uL (1.3-2.9); LYMPHOCYTES % (AUTO) 14.5 % (21.0-51.0); MEAN CORPUSCULAR HEMOGLOBIN 30.1 pg (27.0-34.0); MEAN CORPUSCULAR HGB CONC 33.5 g/dL (33.0-35.0); MEAN CORPUSCULAR VOLUME 89.9 fL (80.0-100.0); MEAN PLATELET VOLUME 7.4 fL (7.4-11.0); MONOCYTES # (AUTO) 0.8 x10^3/uL (0.3-0.8); MONOCYTES % (AUTO) 9.9 % (0.0-13.0); NEUTROPHILS # (AUTO) 5.6 x10^3/uL (2.2-4.8); NEUTROPHILS % (AUTO) 67.3 % (42.0-75.0); PLATELET COUNT 346 X10^3/uL (150.0-450.0); RED BLOOD COUNT 2.48 X10^6/uL (3.5-5.4); RED CELL DISTRIBUTION WIDTH 15.9 % (11.6-16.5); WHITE BLOOD COUNT 8.3 X10^3/uL (3.6-10.0)
[2017-07-31] MEDS: NORCO 5/325 MG TAB PO SCH ×4 (05:52→22:11)
[2017-07-31 06:36] LABS: ALANINE AMINOTRANSFERASE 15 Units/L (12-78); ALBUMIN 3.1 g/dL (3.4-5.0); ALKALINE PHOSPHATASE 55 Units/L (46-116); ASPARTATE AMINO TRANSFERASE 22 Units/L (15-37); BLOOD UREA NITROGEN 34 mg/dL (7-18); CALCIUM 8.8 mg/dL (8.5-10.1); CARBON DIOXIDE 30.4 mmol/L (21-32); CHLORIDE 107 mmol/L (98-107); COR CA(FOR HYPOALB) 9.5 mg/dL (8.5-10.1); CREATININE 1.52 mg/dL (0.55-1.02); SODIUM 142 mmol/L (136-145); TOTAL PROTEIN 6.2 g/dL (6.4-8.2); eGFR BLACK RACES 42 (>60); eGFR NON BLACK RACES 35 (>60)
[2017-07-31 06:39] LABS: HYPOCHROMASIA SLIGHT; PLATELET MORPHOLOGY COMMENT NORMAL (NORMAL)
[2017-07-31] MEDS: XOPENEX 1.25 MG/3 ML NEBULE NEB SCH ×5 (08:28→20:40)
[2017-07-31] MEDS: XOPENEX 1.25 MG/3 ML NEBULE NEB PRN ×2 (08:56→12:21)
--- NOTE | 2017-07-31 09:14 | RAD ---
HISTORY: Dyspnea Study: Two-view chest Comparison: July 26, 2017 Findings: There is aortic atherosclerosis. The heart is mildly enlarged. There is improved aeration of the righ t lung base. There is persistent trace left basilar fluid and consolidation. There is no pneumothorax . IMPRESSION: Trace left basilar fluid and consolidation with improved aeration of the right lung base. Reported By:
[2017-07-31] MEDS: COREG TAB 3.125 MG PO SCH ×2 (09:31→22:10)
[2017-07-31] MEDS: NEURONTIN CAP 300 MG PO SCH ×2 (09:31→12:40)
[2017-07-31] MEDS: EFFEXOR XR 75 MG CAP PO SCH (09:31)
[2017-07-31] MEDS: COLACE CAP 100 MG PO SCH ×2 (09:31→22:11)
[2017-07-31] MEDS: PROTONIX TAB 40 MG PO SCH (09:31)
[2017-07-31] MEDS: ASPIRIN EC 81 MG PO SCH (09:31)
[2017-07-31] MEDS: HEMOCYTE-PLUS PO SCH (09:31)
[2017-07-31] MEDS: VITAMIN D3 PO SCH (09:31)
[2017-07-31] MEDS: CLEOCIN PO SCH ×5 (09:32→22:10)
[2017-07-31] MEDS: VSL#3 PO SCH (09:32)
[2017-07-31] MEDS: PLAVIX PO SCH (09:32)
[2017-07-31] MEDS: LANTUS SC SCH ×2 (09:33→22:12)
[2017-07-31] MEDS: NYSTATIN POWDER TOP SCH ×2 (09:33→22:11)
[2017-07-31] MEDS: GENTAMICIN TOPICAL OINT TOP SCH ×2 (09:34→22:12)
[2017-07-31 12:47] VITALS: BMI 30.1
[2017-07-31] MEDS: MAALOX or MYLANTA PO PRN (13:16)
[2017-07-31] MEDS: LEVSIN/MAALOX/LIDOC VISC PO PRN ×2 (13:19→17:20)
[2017-07-31] MEDS: ZANTAC PO SCH ×2 (16:47→22:10)
[2017-07-31] MEDS ORDERED: PEPCID 20 MG IV PREMIX* 50 ML IV SCH (17:00)
[2017-07-31] MEDS: TUMS PO PRN (18:22)
[2017-07-31] MEDS: MIRALAX POWDER (1 DOSE 17GM) PO SCH (22:07)
[2017-07-31] MEDS: FORTAZ or TAZICEF INJ 1 GM in NS 50 ML IV 50 ML IV SCH (22:09)
[2017-07-31] MEDS: ZOCOR TAB 40 MG PO SCH (22:10)
[2017-07-31] MEDS: NEURONTIN CAP 400 MG PO SCH (22:11)
[2017-07-31] MEDS: LEVSIN/MAALOX/LIDOC VISC PO SCH (22:21)
[2017-07-31] MEDS: SNACK - Diabetic Appropriate PO SCH (22:22)
[2017-08-01] MEDS: LEVSIN/MAALOX/LIDOC VISC PO SCH ×6 (01:31→20:51)
[2017-08-01] MEDS: NORCO 5/325 MG TAB PO SCH ×4 (03:34→20:53)
[2017-08-01] MEDS: XOPENEX 1.25 MG/3 ML NEBULE NEB SCH ×4 (08:51→20:42)
[2017-08-01] MEDS: NYSTATIN POWDER TOP SCH ×2 (09:54→20:53)
[2017-08-01] MEDS: HEMOCYTE-PLUS PO SCH (09:54)
[2017-08-01] MEDS: EFFEXOR XR 75 MG CAP PO SCH (09:54)
[2017-08-01] MEDS: VSL#3 PO SCH (09:54)
[2017-08-01] MEDS: PLAVIX PO SCH (09:55)
[2017-08-01] MEDS: COLACE CAP 100 MG PO SCH ×2 (09:55→20:07)
[2017-08-01] MEDS: ASPIRIN EC 81 MG PO SCH (09:55)
[2017-08-01] MEDS: NEURONTIN CAP 300 MG PO SCH ×2 (09:55→12:44)
[2017-08-01] MEDS: CLEOCIN PO SCH ×4 (09:55→20:52)
[2017-08-01] MEDS: ZANTAC PO SCH ×2 (09:55→20:52)
[2017-08-01] MEDS: COREG TAB 3.125 MG PO SCH ×2 (09:55→20:52)
[2017-08-01] MEDS: GENTAMICIN TOPICAL OINT TOP SCH ×2 (09:56→20:54)
[2017-08-01] MEDS: PROTONIX TAB 40 MG PO SCH (09:56)
[2017-08-01] MEDS: LANTUS SC SCH ×2 (10:00→20:51)
[2017-08-01] MEDS: TUMS PO PRN ×2 (10:22→13:10)
[2017-08-01] MEDS ORDERED: NORCO 5/325 MG TAB PO ONE (10:59)
[2017-08-01] MEDS: MAALOX or MYLANTA PO PRN (11:10)
[2017-08-01] MEDS: VITAMIN D3 PO SCH (12:44)
[2017-08-01] MEDS: SNACK - Diabetic Appropriate PO SCH (20:07)
[2017-08-01 20:36] LABS: BILIRUBIN,URINE NEGATIVE (NEGATIVE); BLOOD/HEMOGLOBIN,URINE 2+ (NEGATIVE); GLUCOSE, URINE 1+ (NEGATIVE); KETONES,URINE NEGATIVE (NEGATIVE); LEUKOCYTE ESTERASE ,URINE 2+ (NEGATIVE); NITRITES,URINE NEGATIVE (NEGATIVE); PROTEIN,URINE 3+ (NEGATIVE); UROBILINOGEN,URINE NORMAL (NORMAL)
[2017-08-01] MEDS: FORTAZ or TAZICEF INJ 1 GM in NS 50 ML IV 50 ML IV SCH (20:51)
[2017-08-01] MEDS: NEURONTIN CAP 400 MG PO SCH (20:52)
[2017-08-01] MEDS: ZOCOR TAB 40 MG PO SCH (20:52)
[2017-08-01] MEDS: MIRALAX POWDER (1 DOSE 17GM) PO SCH (20:53)
[2017-08-01 20:54] LABS: APPEARANCE,URINE CLEAR (CLEAR); COLOR,URINE YELLOW (YELLOW); RBC,URINE RARE /HPF (NEGATIVE); SQUAMOUS EPITHELIAL CELL,UR FEW /HPF (NEGATIVE)
[2017-08-01 20:55] LABS: AMORPHOUS SEDIMENT,UR TRACE /HPF (NEGATIVE); BACTERIA,URINE NEGATIVE /HPF (NEGATIVE); HYALINE CASTS, URINE RARE /LPF (NEGATIVE)
--- NOTE | 2017-08-01 23:34 | PCM.PROG ---
Progress Note - Progress Note for Day of Date: 07/28/17 - Subjective Subjective: WAS ADMITTED TO [facility] FOR PHYSICAL THERAPY, IV ANTIBIOTICS, AND WOUND CARE FOR WOUND TO THE LEFT GREAT TOE. TODAY, SHE IS ALERT AND ORIENTED, LYING IN BED ON MORNING ROUNDS. SHE CONTINUES WITH COMPLAINTS OF PAIN TO THE LEFT FOOT, BUT REPORTS IMPROVEMENT IN PAIN SINCE WE LAST SAW HER. SHE ALSO CONTINUES WITH PERSISTENT SHORTNESS OF BREATH. ON EXAMINATION, LUNG SOUNDS ARE DIMINISHED. ABDOMEN IS ROUND, SOFT, AND NON-TENDER WITH NORMAL BOWEL SOUNDS NOTED IN ALL QUADRANTS. LEFT FOOT IS NOTED WITH A YASMIN DRESSING. DRESSING REMOVED TO ASSESS WOUND. WOUND IS DRY WITH NO DRAINAGE NOTED. NO SIGNS OF INFECTION NOTED AT THIS TIME. HER VITAL SIGNS THIS MORNING ARE 97.8-76-18-100%-129/95. ABNORMAL LAB VALUES INCLUDE THE FOLLOWING: RBC 2.56 , HGB 7.5, HCT 22.3, POTASSIUM 5.8, BUN 50, CREATININE 1.89, GLUCOSE 122. PATIENT CONTINUES TO BE TREATED FOR MRSA TO THE LEFT GREAT TOE AND A URINARY TRACT INFECTION. SHE CONTINUES TO PARTICIPATE WITH PHYSICAL THERAPY. OTHERWISE, WE WILL CONTINUE WITH CURRENT PLAN OF CARE. WE WILL MONITOR LABS AND REASSESS HGB/HCT IN THE MORNING. - Past Medical Family Social History Past Med/Fam/Surg Hx: No changes since H&P Allergies: Allergies ezetimibe [From Zetia] Allergy (Verified 07/08/17 18:25) Influenza Virus Vaccines Allergy (Verified 07/08/17 18:25) Penicillins Allergy (Verified 07/08/17 18:25) pneumococcal vaccine Allergy (Verified 07/08/17 18:25) ropinirole [From Requip] Allergy (Verified 07/08/17 18:25) - Review of Systems ROS: No change since H&P - Vital Signs and I&O's Vital Signs: Temperature 98.6 F Pulse Rate [Right Brachial] 55 Pulse Rate 71 Respiratory Rate 18 Blood Pressure [Left Arm] 135/60 Blood Pressure [Right Arm] 170/66 Blood Pressure 166/74 O2 Sat by Pulse Oximetry 95 Intake and Output: Intake & Output 07/30/17 07/31/17 08/01/17 08/02/17 11:59 11:59 11:59 11:59 Intake Total 1010 1125 770 550 Output Total 1550 800 Balance -540 325 770 550 - Physical Exam Oriented: Normal Eyes: Normal Ear: Normal Nose: Normal Throat: Normal Respiratory: Generalized, Diminished Cardiovascular: Normal : Normal Auscultation: Bowel Sounds: Normal Palpation: Normal Tenderness: Normal Skin: Wound (RIGHT GREAT TOE) Musculoskeletal: Left, Foot, Tender, Instability Psychiatric: Normal Mood Description: Calm Affect: Normal Speech Pattern: Clear, Appropriate - Laboratory and Diagnostics Result Diagrams: 08/03/17 04:45 08/03/17 04:45 Labs: 07/25/17 19:38 Blood Blood Culture - Final 07/25/17 19:26 Blood Blood Culture - Final 07/25/17 16:21 Urine,[place] Urine Culture - Final Laboratory WBC 8.3 X10^3/uL (3.6-10.0) 07/31/17 04:40 RBC 2.48 X10^6/uL (3.5-5.4) L 07/31/17 04:40 Hgb 7.5 g/dL (12.0-16.0) L 07/31/17 04:40 Hct 22.3 % (36.0-47.0) L 07/31/17 04:40 MCV 89.9 fL (80.0-100.0) 07/31/17 04:40 MCH 30.1 pg (27.0-34.0) 07/31/17 04:40 MCHC 33.5 g/dL (33.0-35.0) 07/31/17 04:40 RDW 15.9 % (11.6-16.5) 07/31/17 04:40 Plt Count 346 X10^3/uL (150.0-450.0) 07/31/17 04:40 Plt Count Comment Adequate (ADEQUATE) 07/31/17 04:40 MPV 7.4 fL (7.4-11.0) 07/31/17 04:40 Neut % 67.3 % (42.0-75.0) 07/31/17 04:40 Lymph % 14.5 % (21.0-51.0) L 07/31/17 04:40 [place] % 9.9 % (0.0-13.0) 07/31/17 04:40 Eos % 7.3 % (0.9-2.9) H 07/31/17 04:40 Baso % 1.0 % (0.2-1.0) 07/31/17 04:40 Neut # 5.6 x10^3/uL (2.2-4.8) H 07/31/17 04:40 Lymph # 1.2 X10^3/uL (1.3-2.9) L 07/31/17 04:40 [place] # 0.8 x10^3/uL (0.3-0.8) 07/31/17 04:40 Eos # 0.6 x10^3/uL (0.0-0.2) H 07/31/17 04:40 Baso # 0.1 X10^3/uL (0.0-0.1) 07/31/17 04:40 Absolute Nucleated RBC 0.0 /100WBC 07/31/17 04:40 Plt Morphology Comment Normal (NORMAL) 07/31/17 04:40 RBC Morphology Abnormal (NORMAL) A 07/31/17 04:40 Hypochromasia Slight A 07/31/17 04:40 Anisocytosis Slight A 07/25/17 12:55 Microcytosis Slight A 07/25/17 12:55 Sodium 142 mmol/L (136-145) 07/31/17 04:40 Corrected Sodium TNP 07/31/17 04:40 Potassium 5.3 mmol/L (3.5-5.1) H 07/31/17 04:40 Chloride 107 mmol/L (98-107) 07/31/17 04:40 Carbon Dioxide 30.4 mmol/L (21-32) 07/31/17 04:40 BUN 34 mg/dL (7-18) H 07/31/17 04:40 Creatinine 1.52 mg/dL (0.55-1.02) H 07/31/17 04:40 Est GFR (MDRD) Af Amer 42 (>60) L 07/31/17 04:40 Est GFR (MDRD) Non-Af 35 (>60) L 07/31/17 04:40 Glucose 91 mg/dL (65-99) 07/31/17 04:40 POC Glucose (mg/dL) 260 mg/dL (65-99) H 08/01/17 20:39 Lactic Acid 0.7 mmol/L (0.4-2.0) 07/25/17 19:26 Calcium 8.8 mg/dL (8.5-10.1) 07/31/17 04:40 Corrected Calcium 9.5 mg/dL (8.5-10.1) 07/31/17 04:40 Magnesium 2.3 mg/dL (1.7-2.9) 07/25/17 12:55 Total Bilirubin 0.20 mg/dL (0.2-1.0) 07/31/17 04:40 AST 22 Units/L (15-37) 07/31/17 04:40 ALT 15 Units/L (12-78) 07/31/17 04:40 Alkaline Phosphatase 55 Units/L (46-116) 07/31/17 04:40 Total Protein 6.2 g/dL (6.4-8.2) L 07/31/17 04:40 Albumin 3.1 g/dL (3.4-5.0) L 07/31/17 04:40 Globulin 3.1 g/dL (2.5-4.5) 07/31/17 04:40 Albumin/Globulin Ratio 1.0 Ratio (1.1-2.1) L 07/31/17 04:40 Specimen Type Clean catch urine 08/01/17 20:06 Urine Color Yellow (YELLOW) 08/01/17 20:06 Urine Appearance Clear (CLEAR) 08/01/17 20:06 Urine pH 7.0 (5.0 - 8.0) 08/01/17 20:06 Ur Specific [place] 1.005 (1.000-1.030) 08/01/17 20:06 Urine Protein 3+ (NEGATIVE) 08/01/17 20:06 Urine Glucose (UA) 1+ (NEGATIVE) 08/01/17 20:06 Urine Ketones Negative (NEGATIVE) 08/01/17 20:06 Urine Occult Blood 2+ (NEGATIVE) 08/01/17 20:06 Urine Nitrite Negative (NEGATIVE) 08/01/17 20:06 Urine Bilirubin Negative (NEGATIVE) 08/01/17 20:06 Urine Urobilinogen Normal (NORMAL) 08/01/17 20:06 Ur Leukocyte Esterase 2+ (NEGATIVE) 08/01/17 20:06 Urine RBC Rare /HPF (NEGATIVE) 08/01/17 20:06 Urine WBC 20 - 30 /HPF (NEGATIVE) 08/01/17 20:06 Ur Squamous Epith Cells Few /HPF (NEGATIVE) 08/01/17 20:06 Ur Renal Epithelial Cell Rare /HPF (NEGATIVE) 07/25/17 16:01 Amorphous Sediment Trace /HPF (NEGATIVE) 08/01/17 20:06 Urine Bacteria Negative /HPF (NEGATIVE) 08/01/17 20:06 Hyaline Casts Rare /LPF (NEGATIVE) 08/01/17 20:06 Urine Yeast Few /HPF (NEGATIVE) 07/25/17 16:01 Ur Culture Indicated? Yes/culture set up 08/01/17 20:06 - Plan (1) Diabetic ulcer of left great toe Status: Acute Plan: CONTINUE IV ANTIBIOTICS, WOUND CARE, PHYSICAL THERAPY, CONTINUE TO MONITOR (2) MRSA (methicillin resistant Staphylococcus aureus) Status: Acute Plan: CONTINUE IV ANTIBIOTICS, CONTINUE TO MONITOR (3) Urinary tract infection Status: Acute Qualifiers: Urinary tract infection type: acute cystitis Hematuria presence: without hematuria Qualified Code(s): N30.00 - Acute cystitis without hematuria Plan: CONTINUE IV ANTIBIOTICS, CONTINUE TO MONITOR (4) COPD with acute exacerbation Status: Acute Plan: CONTINUE DUONEBS, CONTINUE TO MONITOR LABS AND CHEST XRAY (5) CHF (congestive heart failure) Status: Chronic Qualifiers: Congestive heart failure chronicity: acute on chronic Plan: CONTINUE DUONEBS, CONTINUE COREG 3.125MG PO BID, CONTINUE TO MONITOR LABS AND CHEST XRAY
[2017-08-02] MEDS: LEVSIN/MAALOX/LIDOC VISC PO SCH ×6 (04:58→22:11)
[2017-08-02] MEDS: NORCO 5/325 MG TAB PO SCH ×4 (04:58→21:08)
[2017-08-02] MEDS: TUMS PO PRN (08:06)
[2017-08-02] MEDS: XOPENEX 1.25 MG/3 ML NEBULE NEB SCH ×4 (08:58→20:52)
[2017-08-02] MEDS: NEURONTIN CAP 300 MG PO SCH ×2 (09:34→13:32)
[2017-08-02] MEDS: CLEOCIN PO SCH ×4 (09:35→21:07)
[2017-08-02] MEDS: COLACE CAP 100 MG PO SCH ×2 (09:37→21:09)
[2017-08-02] MEDS: HEMOCYTE-PLUS PO SCH (09:37)
[2017-08-02] MEDS: COREG TAB 3.125 MG PO SCH ×2 (09:37→21:07)
[2017-08-02] MEDS: ASPIRIN EC 81 MG PO SCH (09:37)
[2017-08-02] MEDS: ZANTAC PO SCH ×2 (09:38→21:07)
[2017-08-02] MEDS: PROTONIX TAB 40 MG PO SCH (09:38)
[2017-08-02] MEDS: VITAMIN D3 PO SCH (09:38)
[2017-08-02] MEDS: EFFEXOR XR 75 MG CAP PO SCH (09:38)
[2017-08-02] MEDS: VSL#3 PO SCH (09:38)
[2017-08-02] MEDS: PLAVIX PO SCH (09:39)
[2017-08-02] MEDS: GENTAMICIN TOPICAL OINT TOP SCH ×2 (09:42→21:10)
[2017-08-02] MEDS: NYSTATIN POWDER TOP SCH ×2 (09:42→21:10)
[2017-08-02] MEDS: LANTUS SC SCH ×2 (09:43→21:05)
[2017-08-02] MEDS: NORCO 10/325 TAB PO PRN (13:35)
[2017-08-02] MEDS: HumuLIN R SC PRN (21:03)
[2017-08-02] MEDS: NEURONTIN CAP 400 MG PO SCH (21:07)
[2017-08-02] MEDS: ZOCOR TAB 40 MG PO SCH (21:08)
[2017-08-02] MEDS: SNACK - Diabetic Appropriate PO SCH (21:09)
[2017-08-02] MEDS: MIRALAX POWDER (1 DOSE 17GM) PO SCH (21:09)
[2017-08-02] MEDS: FORTAZ or TAZICEF INJ 1 GM in NS 50 ML IV 50 ML IV SCH (21:12)
[2017-08-03] MEDS: NORCO 5/325 MG TAB PO SCH ×4 (03:58→22:05)
[2017-08-03 05:19] LABS: ALANINE AMINOTRANSFERASE 15 Units/L (12-78); ALBUMIN 3.1 g/dL (3.4-5.0); ALKALINE PHOSPHATASE 61 Units/L (46-116); ASPARTATE AMINO TRANSFERASE 15 Units/L (15-37); BLOOD UREA NITROGEN 28 mg/dL (7-18); CALCIUM 9.2 mg/dL (8.5-10.1); COR CA(FOR HYPOALB) 9.9 mg/dL (8.5-10.1); CREATININE 1.57 mg/dL (0.55-1.02); TOTAL PROTEIN 6.2 g/dL (6.4-8.2); eGFR BLACK RACES 41 (>60); eGFR NON BLACK RACES 34 (>60)
[2017-08-03 05:24] LABS: BASOPHILS # (AUTO) 0.1 X10^3/uL (0.0-0.1); BASOPHILS % (AUTO) 1.2 % (0.2-1.0); EOSINOPHILS # (AUTO) 0.6 x10^3/uL (0.0-0.2); EOSINOPHILS % (AUTO) 9.7 % (0.9-2.9); HEMATOCRIT 22.8 % (36.0-47.0); HEMOGLOBIN 7.5 g/dL (12.0-16.0); LYMPHOCYTES # (AUTO) 1.2 X10^3/uL (1.3-2.9); LYMPHOCYTES % (AUTO) 18.1 % (21.0-51.0); MEAN CORPUSCULAR HEMOGLOBIN 29.9 pg (27.0-34.0); MEAN CORPUSCULAR HGB CONC 32.9 g/dL (33.0-35.0); MEAN CORPUSCULAR VOLUME 90.7 fL (80.0-100.0); MEAN PLATELET VOLUME 7.7 fL (7.4-11.0); MONOCYTES # (AUTO) 0.8 x10^3/uL (0.3-0.8); MONOCYTES % (AUTO) 11.5 % (0.0-13.0); NEUTROPHILS # (AUTO) 3.9 x10^3/uL (2.2-4.8); NEUTROPHILS % (AUTO) 59.5 % (42.0-75.0); PLATELET COUNT 288 X10^3/uL (150.0-450.0); RED BLOOD COUNT 2.52 X10^6/uL (3.5-5.4); RED CELL DISTRIBUTION WIDTH 15.6 % (11.6-16.5); WHITE BLOOD COUNT 6.5 X10^3/uL (3.6-10.0)
[2017-08-03 05:32] LABS: CHLORIDE 106 mmol/L (98-107); SODIUM 143 mmol/L (136-145)
[2017-08-03] MEDS: LEVSIN/MAALOX/LIDOC VISC PO SCH ×7 (05:45→22:29)
[2017-08-03 06:02] LABS: HYPOCHROMASIA SLIGHT; PLATELET MORPHOLOGY COMMENT NORMAL (NORMAL)
[2017-08-03] MEDS: XOPENEX 1.25 MG/3 ML NEBULE NEB SCH ×4 (08:27→20:40)
[2017-08-03] MEDS: VITAMIN D3 PO SCH (09:31)
[2017-08-03] MEDS: VSL#3 PO SCH (09:31)
[2017-08-03] MEDS: NYSTATIN SUSP MT SCH ×4 (09:32→22:14)
[2017-08-03] MEDS: EFFEXOR XR 75 MG CAP PO SCH (09:32)
[2017-08-03] MEDS: PROTONIX TAB 40 MG PO SCH (09:32)
[2017-08-03] MEDS: COLACE CAP 100 MG PO SCH ×2 (09:32→22:06)
[2017-08-03] MEDS: CLEOCIN PO SCH ×4 (09:32→22:07)
[2017-08-03] MEDS: NYSTATIN POWDER TOP SCH ×2 (09:33→22:14)
[2017-08-03] MEDS: HEMOCYTE-PLUS PO SCH (09:33)
[2017-08-03] MEDS: PLAVIX PO SCH (09:33)
[2017-08-03] MEDS: ASPIRIN EC 81 MG PO SCH (09:33)
[2017-08-03] MEDS: ZANTAC PO SCH ×2 (09:33→22:14)
[2017-08-03] MEDS: NEURONTIN CAP 300 MG PO SCH ×2 (09:33→12:06)
[2017-08-03] MEDS: COREG TAB 3.125 MG PO SCH ×2 (09:33→22:07)
[2017-08-03] MEDS: GENTAMICIN TOPICAL OINT TOP SCH ×2 (09:34→22:08)
[2017-08-03] MEDS: LANTUS SC SCH ×2 (09:34→22:09)
--- NOTE | 2017-08-03 12:49 | PCM.PROG ---
Progress Note - Progress Note for Day of Date: 07/31/17 - Subjective Subjective: WAS ADMITTED TO [facility] FOR PHYSICAL THERAPY, IV ANTIBIOTICS, AND WOUND CARE FOR WOUND TO THE LEFT GREAT TOE. TODAY, SHE IS ALERT AND ORIENTED, LYING IN BED ON MORNING ROUNDS. SHE CONTINUES WITH COMPLAINTS OF PAIN TO THE LEFT FOOT. SHE IS ALSO NOTED WITH COMPLAINTS OF HEARTBURN. ON EXAMINATION, LUNG SOUNDS ARE DIMINISHED. ABDOMEN IS ROUND, SOFT, AND NON-TENDER WITH NORMAL BOWEL SOUNDS NOTED IN ALL QUADRANTS. LEFT FOOT IS NOTED WITH A YASMIN DRESSING. DRESSING IS DRY AND INTACT WITH NO SIGNS OF INFECTION NOTED AT THIS TIME. HER VITAL SIGNS THIS MORNING ARE 98.2-80-16-100%- 133/58. ABNORMAL LAB VALUES INCLUDE THE FOLLOWING: RBC 2.48, HGB 7.5, HCT 22.8, POTASSIUM 5.3, BUN 34, CREATININE 1.52, TOTAL PROTEIN 6.2, ALBUMIN 3.1. A CHEST XRAY WAS OBTAINED TODAY AND REPORTS TRACE LEFT BASILAR FLUID AND CONSOLIDATION WITH IMPROVED AERATION OF THE RIGHT LUNG BASE. PATIENT CONTINUES TO BE TREATED FOR MRSA TO THE LEFT GREAT TOE AND A URINARY TRACT INFECTION. SHE CONTINUES TO PARTICIPATE WITH PHYSICAL THERAPY. WE WILL CONTINUE WITH CURRENT PLAN OF CARE TODAY AND START GI COCKTAIL 30ML Q4H PRN, TUMS Q4H PRN, AND ZANTAC 150MG PO BID. WE WILL MONITOR LABS AND REASSESS HGB/HCT IN THE MORNING. - Past Medical Family Social History Past Med/Fam/Surg Hx: No changes since H&P Allergies: Allergies ezetimibe [From Zetia] Allergy (Verified 07/08/17 18:25) Influenza Virus Vaccines Allergy (Verified 07/08/17 18:25) Penicillins Allergy (Verified 07/08/17 18:25) pneumococcal vaccine Allergy (Verified 07/08/17 18:25) ropinirole [From Requip] Allergy (Verified 07/08/17 18:25) - Review of Systems ROS: No change since H&P - Vital Signs and I&O's Vital Signs: Temperature 98.4 F Pulse Rate [Right Brachial] 92 Pulse Rate 86 Respiratory Rate 18 Blood Pressure [Left Arm] 130/56 Blood Pressure [Right Arm] 170/66 Blood Pressure 166/74 O2 Sat by Pulse Oximetry 95 Intake and Output: Intake & Output 08/01/17 08/02/17 08/03/1708/04/17 11:59 11:59 11:59 11:59 Intake Total 770 670 880 Output Total 150 Balance 770 520 880 - Physical Exam Oriented: Normal Eyes: Normal Ear: Normal Nose: Normal Throat: Normal Respiratory: Right, Left, Generalized, Diminished Cardiovascular: Normal : Normal Auscultation: Bowel Sounds: Normal Palpation: Normal Tenderness: Epigastric, Suprapubic Skin: Normal (LEFT GREAT TOE DIABETIC ULCER ), Wound Musculoskeletal: Left, Foot, Tender, Instability Psychiatric: Normal Mood Description: Calm Affect: Normal Speech Pattern: Clear, Appropriate - Laboratory and Diagnostics Result Diagrams: 08/03/17 04:45 08/03/17 04:45 Labs: 08/01/17 20:06 Urine,[place] Urine Culture - Final 07/25/17 19:38 Blood Blood Culture - Final 07/25/17 19:26 Blood Blood Culture - Final 07/25/17 16:21 Urine,[place] Urine Culture - Final Laboratory WBC 6.5 X10^3/uL (3.6-10.0) 08/03/17 04:45 RBC 2.52 X10^6/uL (3.5-5.4) L 08/03/17 04:45 Hgb 7.5 g/dL (12.0-16.0) L 08/03/17 04:45 Hct 22.8 % (36.0-47.0) L 08/03/17 04:45 MCV 90.7 fL (80.0-100.0) 08/03/17 04:45 MCH 29.9 pg (27.0-34.0) 08/03/17 04:45 MCHC 32.9 g/dL (33.0-35.0) L 08/03/17 04:45 RDW 15.6 % (11.6-16.5) 08/03/17 04:45 Plt Count 288 X10^3/uL (150.0-450.0) 08/03/17 04:45 Plt Count Comment Adequate (ADEQUATE) 08/03/17 04:45 MPV 7.7 fL (7.4-11.0) 08/03/17 04:45 Neut % 59.5 % (42.0-75.0) 08/03/17 04:45 Lymph % 18.1 % (21.0-51.0) L 08/03/17 04:45 [place] % 11.5 % (0.0-13.0) 08/03/17 04:45 Eos % 9.7 % (0.9-2.9) H 08/03/17 04:45 Baso % 1.2 % (0.2-1.0) H 08/03/17 04:45 Neut # 3.9 x10^3/uL (2.2-4.8) 08/03/17 04:45 Lymph # 1.2 X10^3/uL (1.3-2.9) L 08/03/17 04:45 [place] # 0.8 x10^3/uL (0.3-0.8) 08/03/17 04:45 Eos # 0.6 x10^3/uL (0.0-0.2) H 08/03/17 04:45 Baso # 0.1 X10^3/uL (0.0-0.1) 08/03/17 04:45 Absolute Nucleated RBC 0.0 /100WBC 08/03/17 04:45 Plt Morphology Comment Normal (NORMAL) 08/03/17 04:45 RBC Morphology Abnormal (NORMAL) A 08/03/17 04:45 Hypochromasia Slight A 08/03/17 04:45 Anisocytosis Slight A 07/25/17 12:55 Microcytosis Slight A 07/25/17 12:55 Sodium 143 mmol/L (136-145) 08/03/17 04:45 Corrected Sodium TNP 08/03/17 04:45 Potassium 4.8 mmol/L (3.5-5.1) 08/03/17 04:45 Chloride 106 mmol/L (98-107) 08/03/17 04:45 Carbon Dioxide 31.0 mmol/L (21-32) 08/03/17 04:45 BUN 28 mg/dL (7-18) H 08/03/17 04:45 Creatinine 1.57 mg/dL (0.55-1.02) H 08/03/17 04:45 Est GFR (MDRD) Af Amer 41 (>60) L 08/03/17 04:45 Est GFR (MDRD) Non-Af 34 (>60) L 08/03/17 04:45 Glucose 98 mg/dL (65-99) 08/03/17 04:45 POC Glucose (mg/dL) 127 mg/dL (65-99) H 08/03/17 12:05 Lactic Acid 0.7 mmol/L (0.4-2.0) 07/25/17 19:26 Calcium 9.2 mg/dL (8.5-10.1) 08/03/17 04:45 Corrected Calcium 9.9 mg/dL (8.5-10.1) 08/03/17 04:45 Magnesium 2.3 mg/dL (1.7-2.9) 07/25/17 12:55 Total Bilirubin 0.30 mg/dL (0.2-1.0) 08/03/17 04:45 AST 15 Units/L (15-37) 08/03/17 04:45 ALT 15 Units/L (12-78) 08/03/17 04:45 Alkaline Phosphatase 61 Units/L (46-116) 08/03/17 04:45 Total Protein 6.2 g/dL (6.4-8.2) L 08/03/17 04:45 Albumin 3.1 g/dL (3.4-5.0) L 08/03/17 04:45 Globulin 3.1 g/dL (2.5-4.5) 08/03/17 04:45 Albumin/Globulin Ratio 1.0 Ratio (1.1-2.1) L 08/03/17 04:45 Specimen Type Clean catch urine 08/01/17 20:06 Urine Color Yellow (YELLOW) 08/01/17 20:06 Urine Appearance Clear (CLEAR) 08/01/17 20:06 Urine pH 7.0 (5.0 - 8.0) 08/01/17 20:06 Ur Specific Mchenry 1.005 (1.000-1.030) 08/01/17 20:06 Urine Protein 3+ (NEGATIVE) 08/01/17 20:06 Urine Glucose (UA) 1+ (NEGATIVE) 08/01/17 20:06 Urine Ketones Negative (NEGATIVE) 08/01/17 20:06 Urine Occult Blood 2+ (NEGATIVE) 08/01/17 20:06 Urine Nitrite Negative (NEGATIVE) 08/01/17 20:06 Urine Bilirubin Negative (NEGATIVE) 08/01/17 20:06 Urine Urobilinogen Normal (NORMAL) 08/01/17 20:06 Ur Leukocyte Esterase 2+ (NEGATIVE) 08/01/17 20:06 Urine RBC Rare /HPF (NEGATIVE) 08/01/17 20:06 Urine WBC 20 - 30 /HPF (NEGATIVE) 08/01/17 20:06 Ur Squamous Epith Cells Few /HPF (NEGATIVE) 08/01/17 20:06 Ur Renal Epithelial Cell Rare /HPF (NEGATIVE) 07/25/17 16:01 Amorphous Sediment Trace /HPF (NEGATIVE) 08/01/17 20:06 Urine Bacteria Negative /HPF (NEGATIVE) 08/01/17 20:06 Hyaline Casts Rare /LPF (NEGATIVE) 08/01/17 20:06 Urine Yeast Few /HPF (NEGATIVE) 07/25/17 16:01 Ur Culture Indicated? Yes/culture set up 08/01/17 20:06 H. pylori IgG Antibody Negative (NEGATIVE) 08/02/17 15:11 - Plan (1) Diabetic ulcer of left great toe Status: Acute Plan: CONTINUE IV ANTIBIOTICS, WOUND CARE, PHYSICAL THERAPY, CONTINUE TO MONITOR (2) MRSA (methicillin resistant Staphylococcus aureus) Status: Acute Plan: CONTINUE IV ANTIBIOTICS, CONTINUE TO MONITOR (3) Urinary tract infection Status: Acute Qualifiers: Urinary tract infection type: acute cystitis Hematuria presence: without hematuria Qualified Code(s): N30.00 - Acute cystitis without hematuria Plan: CONTINUE IV ANTIBIOTICS, CONTINUE TO MONITOR (4) Dyspepsia Status: Acute Plan: GI COCKTAIL PRN, TUMS PRN, AND ZANTAC 150MG PO BID, CONTINUE TO MONTITOR
[2017-08-03] MEDS: ZOFRAN INJ 4 MG VIAL IVP PRN (13:22)
[2017-08-03] MEDS: SNACK - Diabetic Appropriate PO SCH (20:20)
[2017-08-03] MEDS: FORTAZ or TAZICEF INJ 1 GM in NS 50 ML IV 50 ML IV SCH (22:07)
[2017-08-03] MEDS: HumuLIN R SC PRN (22:11)
[2017-08-03] MEDS: NEURONTIN CAP 400 MG PO SCH (22:13)
[2017-08-03] MEDS: MIRALAX POWDER (1 DOSE 17GM) PO SCH (22:13)
[2017-08-03] MEDS: ZOCOR TAB 40 MG PO SCH (22:15)
[2017-08-04] MEDS: LEVSIN/MAALOX/LIDOC VISC PO SCH ×5 (02:00→17:10)
[2017-08-04] MEDS: NORCO 5/325 MG TAB PO SCH ×3 (03:53→17:17)
[2017-08-04] MEDS: XOPENEX 1.25 MG/3 ML NEBULE NEB SCH ×3 (08:50→16:47)
[2017-08-04] MEDS: VSL#3 PO SCH (09:33)
[2017-08-04] MEDS: PROTONIX TAB 40 MG PO SCH (09:33)
[2017-08-04] MEDS: HEMOCYTE-PLUS PO SCH (09:34)
[2017-08-04] MEDS: ASPIRIN EC 81 MG PO SCH (09:34)
[2017-08-04] MEDS: NEURONTIN CAP 300 MG PO SCH ×2 (09:34→13:56)
[2017-08-04] MEDS: COLACE CAP 100 MG PO SCH (09:34)
[2017-08-04] MEDS: COREG TAB 3.125 MG PO SCH (09:34)
[2017-08-04] MEDS: ZANTAC PO SCH (09:34)
[2017-08-04] MEDS: EFFEXOR XR 75 MG CAP PO SCH (09:34)
[2017-08-04] MEDS: VITAMIN D3 PO SCH (09:35)
[2017-08-04] MEDS: CLEOCIN PO SCH ×3 (09:35→17:11)
[2017-08-04] MEDS: PLAVIX PO SCH (09:36)
[2017-08-04] MEDS: NYSTATIN SUSP MT SCH ×3 (09:36→17:11)
[2017-08-04] MEDS: LANTUS SC SCH (09:37)
[2017-08-04] MEDS: NYSTATIN POWDER TOP SCH (09:38)
[2017-08-04] MEDS: GENTAMICIN TOPICAL OINT TOP SCH (09:39)
[2017-08-04] MEDS: NORCO 10/325 TAB PO PRN (17:11)
[2017-08-04 19:38] VITALS: BP 140/60
--- NOTE | 2017-08-05 13:01 | PCM.PROG ---
Progress Note - Progress Note for Day of Date: 08/03/17 - Subjective Subjective: WAS ADMITTED TO [facility] FOR PHYSICAL THERAPY, IV ANTIBIOTICS, AND WOUND CARE FOR WOUND TO THE LEFT GREAT TOE. TODAY, SHE IS ALERT AND ORIENTED, LYING IN BED ON MORNING ROUNDS. SHE CONTINUES WITH COMPLAINTS OF PAIN TO THE LEFT FOOT. SHE REPORTS THAT HEARTBURN HAS IMPROVED SINCE OUR LAST VISIT. SHE CONTINUES WITH PERSISTENT SHORTNESS OF BREATH THAT DOES NOT SEEM TO BE IMPROVING MUCH. ON EXAMINATION, LUNG SOUNDS ARE DIMINISHED. ABDOMEN IS ROUND, SOFT, AND NON-TENDER WITH NORMAL BOWEL SOUNDS NOTED IN ALL QUADRANTS. LEFT FOOT IS NOTED WITH A YASIMN DRESSING. DRESSING IS DRY AND INTACT WITH NO SIGNS OF INFECTION NOTED AT THIS TIME. HER VITAL SIGNS THIS MORNING ARE 98.1-56-20-94%-88/54. ABNORMAL LAB VALUES INCLUDE THE FOLLOWING : RBC 2.52, HGB 7.5, HCT 22.8, POTASSIUM 5.3, BUN 38, CREATININE 1.57, TOTAL PROTEIN 6.2, ALBUMIN 3.1. PATIENT CONTINUES TO BE TREATED FOR MRSA TO THE LEFT GREAT TOE AND A URINARY TRACT INFECTION. A REPEAT URINALYSIS THAT WAS OBTAINED ON 08/01 REPORTS WBC 20-30, RBC RARE, NEGATIVE BACTERIA, AND 2+ LEUKOCYTES. THIS IS SLIGHT IMPROVEMENT FROM THE URINALYSIS ON 07/25/17. OUR PLANS ARE TO DISCHARGE PATIENT TOMORROW IF SHE REMAINS STABLE. SHE CONTINUES TO PARTICIPATE WITH PHYSICAL THERAPY. WE WILL CONTINUE WITH CURRENT PLAN OF CARE TODAY. - Past Medical Family Social History Past Med/Fam/Surg Hx: No changes since H&P Allergies: Allergies ezetimibe [From Zetia] Allergy (Verified 07/08/17 18:25) Influenza Virus Vaccines Allergy (Verified 07/08/17 18:25) Penicillins Allergy (Verified 07/08/17 18:25) pneumococcal vaccine Allergy (Verified 07/08/17 18:25) ropinirole [From Requip] Allergy (Verified 07/08/17 18:25) - Review of Systems ROS: No change since H&P - Vital Signs and I&O's Vital Signs: Temperature 98.7 F Pulse Rate [Right Brachial] 90 Pulse Rate 96 Respiratory Rate 18 Blood Pressure [Left Arm] 140/60 Blood Pressure [Right Arm] 136/56 Blood Pressure 166/74 O2 Sat by Pulse Oximetry 86 Intake and Output: Intake & Output 08/03/17 08/04/17 08/05/17 08/06/17 11:59 11:59 11:59 11:59 Intake Total 880 1430 340 Balance 880 1430 340 - Physical Exam Oriented: Normal Eyes: Normal Ear: Normal Nose: Normal Throat: Normal Respiratory: Generalized, Diminished Cardiovascular: Normal : Normal Auscultation: Bowel Sounds: Normal Palpation: Normal Tenderness: Normal Skin: Wound (RIGHT GREAT TOE) Musculoskeletal: Left, Foot, Tender, Instability Psychiatric: Normal Mood Description: Calm Affect: Normal Speech Pattern: Clear, Appropriate - Laboratory and Diagnostics Result Diagrams: 08/03/17 04:45 08/03/17 04:45 Labs: 08/01/17 20:06 Urine,Clean Catch Urine Culture - Final 07/25/17 19:38 Blood Blood Culture - Final 07/25/17 19:26 Blood Blood Culture - Final 07/25/17 16:21 Urine,[place] Urine Culture - Final Laboratory WBC 6.5 X10^3/uL (3.6-10.0) 08/03/17 04:45 RBC 2.52 X10^6/uL (3.5-5.4) L 08/03/17 04:45 Hgb 7.5 g/dL (12.0-16.0) L 08/03/17 04:45 Hct 22.8 % (36.0-47.0) L 08/03/17 04:45 MCV 90.7 fL (80.0-100.0) 08/03/17 04:45 MCH 29.9 pg (27.0-34.0) 08/03/17 04:45 MCHC 32.9 g/dL (33.0-35.0) L 08/03/17 04:45 RDW 15.6 % (11.6-16.5) 08/03/17 04:45 Plt Count 288 X10^3/uL (150.0-450.0) 08/03/17 04:45 Plt Count Comment Adequate (ADEQUATE) 08/03/17 04:45 MPV 7.7 fL (7.4-11.0) 08/03/17 04:45 Neut % 59.5 % (42.0-75.0) 08/03/17 04:45 Lymph % 18.1 % (21.0-51.0) L 08/03/17 04:45 [place] % 11.5 % (0.0-13.0) 08/03/17 04:45 Eos % 9.7 % (0.9-2.9) H 08/03/17 04:45 Baso % 1.2 % (0.2-1.0) H 08/03/17 04:45 Neut # 3.9 x10^3/uL (2.2-4.8) 08/03/17 04:45 Lymph # 1.2 X10^3/uL (1.3-2.9) L 08/03/17 04:45 [place] # 0.8 x10^3/uL (0.3-0.8) 08/03/17 04:45 Eos # 0.6 x10^3/uL (0.0-0.2) H 08/03/17 04:45 Baso # 0.1 X10^3/uL (0.0-0.1) 08/03/17 04:45 Absolute Nucleated RBC 0.0 /100WBC 08/03/17 04:45 Plt Morphology Comment Normal (NORMAL) 08/03/17 04:45 RBC Morphology Abnormal (NORMAL) A 08/03/17 04:45 Hypochromasia Slight A 08/03/17 04:45 Anisocytosis Slight A 07/25/17 12:55 Microcytosis Slight A 07/25/17 12:55 Sodium 143 mmol/L (136-145) 08/03/17 04:45 Corrected Sodium TNP 08/03/17 04:45 Potassium 4.8 mmol/L (3.5-5.1) 08/03/17 04:45 Chloride 106 mmol/L (98-107) 08/03/17 04:45 Carbon Dioxide 31.0 mmol/L (21-32) 08/03/17 04:45 BUN 28 mg/dL (7-18) H 08/03/17 04:45 Creatinine 1.57 mg/dL (0.55-1.02) H 08/03/17 04:45 Est GFR (MDRD) Af Amer 41 (>60) L 08/03/17 04:45 Est GFR (MDRD) Non-Af 34 (>60) L 08/03/17 04:45 Glucose 98 mg/dL (65-99) 08/03/17 04:45 POC Glucose (mg/dL) 178 mg/dL (65-99) H 08/04/17 17:13 Lactic Acid 0.7 mmol/L (0.4-2.0) 07/25/17 19:26 Calcium 9.2 mg/dL (8.5-10.1) 08/03/17 04:45 Corrected Calcium 9.9 mg/dL (8.5-10.1) 08/03/17 04:45 Magnesium 2.3 mg/dL (1.7-2.9) 07/25/17 12:55 Total Bilirubin 0.30 mg/dL (0.2-1.0) 08/03/17 04:45 AST 15 Units/L (15-37) 08/03/17 04:45 ALT 15 Units/L (12-78) 08/03/17 04:45 Alkaline Phosphatase 61 Units/L (46-116) 08/03/17 04:45 Total Protein 6.2 g/dL (6.4-8.2) L 08/03/17 04:45 Albumin 3.1 g/dL (3.4-5.0) L 08/03/17 04:45 Globulin 3.1 g/dL (2.5-4.5) 08/03/17 04:45 Albumin/Globulin Ratio 1.0 Ratio (1.1-2.1) L 08/03/17 04:45 Specimen Type Clean catch urine 08/01/17 20:06 Urine Color Yellow (YELLOW) 08/01/17 20:06 Urine Appearance Clear (CLEAR) 08/01/17 20:06 Urine pH 7.0 (5.0 - 8.0) 08/01/17 20:06 Ur Specific [place] 1.005 (1.000-1.030) 08/01/17 20:06 Urine Protein 3+ (NEGATIVE) 08/01/17 20:06 Urine Glucose (UA) 1+ (NEGATIVE) 08/01/17 20:06 Urine Ketones Negative (NEGATIVE) 08/01/17 20:06 Urine Occult Blood 2+ (NEGATIVE) 08/01/17 20:06 Urine Nitrite Negative (NEGATIVE) 08/01/17 20:06 Urine Bilirubin Negative (NEGATIVE) 08/01/17 20:06 Urine Urobilinogen Normal (NORMAL) 08/01/17 20:06 Ur Leukocyte Esterase 2+ (NEGATIVE) 08/01/17 20:06 Urine RBC Rare /HPF (NEGATIVE) 08/01/17 20:06 Urine WBC 20 - 30 /HPF (NEGATIVE) 08/01/17 20:06 Ur Squamous Epith Cells Few /HPF (NEGATIVE) 08/01/17 20:06 Ur Renal Epithelial Cell Rare /HPF (NEGATIVE) 07/25/17 16:01 Amorphous Sediment Trace /HPF (NEGATIVE) 08/01/17 20:06 Urine Bacteria Negative /HPF (NEGATIVE) 08/01/17 20:06 Hyaline Casts Rare /LPF (NEGATIVE) 08/01/17 20:06 Urine Yeast Few /HPF (NEGATIVE) 07/25/17 16:01 Ur Culture Indicated? Yes/culture set up 08/01/17 20:06 H. pylori IgG Antibody Negative (NEGATIVE) 08/02/17 15:11 - Plan (1) Diabetic ulcer of left great toe Status: Acute Plan: CONTINUE IV ANTIBIOTICS, WOUND CARE, PHYSICAL THERAPY, CONTINUE TO MONITOR (2) MRSA (methicillin resistant Staphylococcus aureus) Status: Acute Plan: CONTINUE IV ANTIBIOTICS, CONTINUE TO MONITOR (3) Urinary tract infection Status: Acute Qualifiers: Urinary tract infection type: acute cystitis Hematuria presence: without hematuria Qualified Code(s): N30.00 - Acute cystitis without hematuria Plan: CONTINUE IV ANTIBIOTICS, CONTINUE TO MONITOR (4) COPD with acute exacerbation Status: Acute Plan: CONTINUE DUONEBS, CONTINUE TO MONITOR LABS AND CHEST XRAY (5) CHF (congestive heart failure) Status: Chronic Qualifiers: Congestive heart failure chronicity: acute on chronic Plan: CONTINUE DUONEBS, CONTINUE COREG 3.125MG PO BID, CONTINUE TO MONITOR LABS AND CHEST XRAY
== END 2017-08-04 19:15 | disposition home health service (06) | DRG 949 ==
LOC: MED/SURG 11:37
PROVIDERS: ADMIT Internal Medicine; ATTEND Internal Medicine
DX: Z51.89 Encounter for other specified aftercare (principal); E11.621 Type 2 diabetes mellitus with foot ulcer; J81.0 Acute pulmonary edema; L97.528 Non-pressure chronic ulcer of other part of left foot with other specified severity; F33.8 Other recurrent depressive disorders; E11.59 Type 2 diabetes mellitus with other circulatory complications; E03.8 Other specified hypothyroidism; E55.9 Vitamin D deficiency, unspecified; E78.2 Mixed hyperlipidemia; I10 Essential (primary) hypertension; I25.10 Atherosclerotic heart disease of native coronary artery without angina pectoris; I50.9 Heart failure, unspecified; R26.89 Other abnormalities of gait and mobility; M86.8X8 Other osteomyelitis, other site; K21.0 Gastro-esophageal reflux disease with esophagitis; R06.02 Shortness of breath; B95.62 Methicillin resistant Staphylococcus aureus infection as the cause of diseases classified elsewhere; B96.4 Proteus (mirabilis) (morganii) as the cause of diseases classified elsewhere; B96.5 Pseudomonas (aeruginosa) (mallei) (pseudomallei) as the cause of diseases classified elsewhere; J44.1 Chronic obstructive pulmonary disease with (acute) exacerbation; N30.00 Acute cystitis without hematuria; R10.13 Epigastric pain
CPT/HCPCS: 36415; 71010; 74000; 80053; 81001; 82947; 83605; 83735; 85025; 86677; 87040; 87086; 93005; 94760; A4222; S0181; J0713; J1815; J1956; J2405; J2765; J7620

== ENCOUNTER 2018-09-28 22:37 | Inpatient (IN) ==
[2018-09-28] MEDS ORDERED: MORPHINE SULFATE INJ 2 MG INJ IVP ONE (22:58)
--- NOTE | 2018-09-28 23:07 | DR.EXTPAIN ---
HPI Time seen Time Seen by Provider: 09/28/18 22:54 PCP Primary Care Physician: HENRY Complaint/Symptoms Chief Complaint:: PATIENT BROUGHT IN BY EMS ON STRETCHER WITH COMPLAINTS OF LEG CRAMPS AND BACK PAIN. EMS STATED THAT WHEN THEY ARRIVED TO PATIENT SHE WAS C/O LEG CRAMPS AND THAT SHE SEEMED TO HAVE SOME AMS, O2 87% AND BLOOD SUGAR 122. Source History Provided: Patient Mode of arrival Mode of Arrival: Stretcher Timing Onset of Chief Complaint: 09/28/18 PMH PMH Past Medical History: Yes Past Medical History: Anemia, Arthritis, CHF, Coronary Artery Disease, Depression, Diabetes, GERD, Hypertension and Renal Disease Past Surgical History: Yes Surgical History: Hysterectomy and Ortho Surgery Past Surgical History Comment: CARDIAC STENTS Family History History of Family Medical Conditions: Yes Family Medical History: [place], Coronary Artery Disease and Hypertension Social History Do you use any recreational Drugs:: No infectious screening Have you traveled outside the country in the last 6 months?: No PE Vital Signs Vitals: Temperature 100.4 F Pulse Rate [Right Brachial] 96 Pulse Rate 89 Respiratory Rate 20 Blood Pressure [Left Arm] 140/60 Blood Pressure [Right Arm] 127/60 Blood Pressure 142/67 O2 Sat by Pulse Oximetry 98 General Limitations: No Limitations and Physical Limitation General Appearance: Alert and In No Apparent Distress Head Head Exam: Normocephalic and Other (left forehead with bruising old) Eyes Eye exam: Normal Appearance, PERRL and EOMI ENT ENT Exam: Normal Exam and Normal Oropharynx Neck Neck Exam: Normal Inspection and Full ROM Chest Chest Inspection: Normal Inspection and Symmetric Chest Wall Rise Respiratory Respiratory Exam: Normal Lung Sounds Bilat Respiratory Exam: Bilateral: Clear to Auscultation Cardiovascular Cardiovascular Exam: Regular Rate and Normal Rhythm Abdominal Exam Abdominal Exam: Normal Inspection, Normal Bowel Sounds and Soft Extremities Extremities Exam: Full ROM and Other (Left lateral thigh with old bruising) Upper Extremities Shoulder Exam: Normal Inspection, Full ROM, Abrasion (bruising right forehead), Ecchymosis and Deformity (bruising left lateral thigh,) Arm Exam: Normal Inspection and Full ROM Elbow Exam: Normal Inspection and Full ROM Forearm Exam: Normal Inspection and Full ROM Hand Exam: Normal Inspection and Full ROM Neuromotor Exam: Normal Exam and Wrist Extension Lower Extremities Hip/Pelvis Exam: Normal Inspection Upper Leg Exam: Normal Inspection Knee Exam: Normal Inspection Lower Leg Exam: Normal Inspection and Full ROM Ankle Exam: Normal Inspection and Full ROM Foot/Toe Exam: Normal Inspection and Full ROM COURSE Consultation Called: 01:30 Consultation Comments: Dr. Lee agreed to admit for further evaluation and treatment ROR Labs Reviewed Laboratory Results Reviewed?: Yes Result Diagrams: 09/30/18 04:43 09/30/18 04:43 Laboratory: 09/29/18 17:00 Arm - Right Gram Stain - Final WBC 12.6 X10^3/uL (3.6-10.0) H 09/30/18 04:43 RBC 2.48 X10^6/uL (3.5-5.4) L 09/30/18 04:43 Hgb 7.8 g/dL (12.0-16.0) L 09/30/18 04:43 Hct 23.7 % (36.0-47.0) L 09/30/18 04:43 MCV 95.6 fL (80.0-100.0) 09/30/18 04:43 MCH 31.4 pg (27.0-34.0) 09/30/18 04:43 MCHC 32.8 g/dL (33.0-35.0) L 09/30/18 04:43 RDW 15.7 % (11.6-16.5) 09/30/18 04:43 Plt Count 226 X10^3/uL (150.0-450.0) 09/30/18 04:43 Plt Count Comment Adequate (ADEQUATE) 09/30/18 04:43 MPV 7.9 fL (7.4-11.0) 09/30/18 04:43 Neut % (Auto) 82.0 % (42.0-75.0) H 09/30/18 04:43 Lymph % (Auto) 8.1 % (21.0-51.0) L 09/30/18 04:43 [place] % (Auto) 7.9 % (0.0-13.0) 09/30/18 04:43 Eos % (Auto) 1.4 % (0.9-2.9) 09/30/18 04:43 Baso % (Auto) 0.6 % (0.2-1.0) 09/30/18 04:43 Neut # (Auto) 10.4 x10^3/uL (2.2-4.8) H 09/30/18 04:43 Lymph # (Auto) 1.0 X10^3/uL (1.3-2.9) L 09/30/18 04:43 [place] # (Auto) 1.0 x10^3/uL (0.3-0.8) H 09/30/18 04:43 Eos # (Auto) 0.2 x10^3/uL (0.0-0.2) 09/30/18 04:43 Baso # (Auto) 0.1 X10^3/uL (0.0-0.1) 09/30/18 04:43 Absolute Nucleated RBC 0.0 /100WBC 09/30/18 04:43 Total Counted 100 09/29/18 04:59 Neutrophils % (Manual) 78 % (39-76) H 09/29/18 04:59 Band Neutrophils % 7 % (0-10) 09/29/18 04:59 Lymphocytes % (Manual) 7 % (13-43) L 09/29/18 04:59 Monocytes % (Manual) 8 % (4-9) 09/29/18 04:59 Plt Morphology Comment Normal (NORMAL) 09/30/18 04:43 RBC Morphology Abnormal (NORMAL) A 09/30/18 04:43 Hypochromasia Slight A 09/30/18 04:43 Sodium 137 mmol/L (136-145) 09/30/18 04:43 Corrected Sodium 141 mmol/L (136-145) 09/30/18 04:43 Potassium 4.2 mmol/L (3.5-5.1) 09/30/18 04:43 Chloride 105 mmol/L (98-107) 09/30/18 04:43 Carbon Dioxide 24.9 mmol/L (21-32) 09/30/18 04:43 BUN 38 mg/dL (7-18) H 09/30/18 04:43 Creatinine 1.50 mg/dL (0.55-1.02) H 09/30/18 04:43 Est GFR (MDRD) Af Amer 43 (>60) L 09/30/18 04:43 Est GFR (MDRD) Non-Af 35 (>60) L 09/30/18 04:43 Glucose 260 mg/dL (65-99) H 09/30/18 04:43 POC Glucose (mg/dL) 243 mg/dL (65-99) H 09/30/18 05:30 Calcium 8.1 mg/dL (8.5-10.1) L 09/30/18 04:43 Corrected Calcium 9.3 mg/dL (8.5-10.1) 09/30/18 04:43 Magnesium 2.7 mg/dL (1.7-2.9) 09/30/18 04:43 Total Bilirubin 0.30 mg/dL (0.2-1.0) 09/30/18 04:43 AST 23 Units/L (15-37) 09/30/18 04:43 ALT 23 Units/L (12-78) 09/30/18 04:43 Alkaline Phosphatase 71 Units/L (46-116) 09/30/18 04:43 Creatine Kinase 108 Units/L (26-192) 09/29/18 09:49 CK-MB (CK-2) 1.2 ng/mL (0-4.0) 09/29/18 09:49 CK/CKMB % Calc 1.1 % (<4) 09/29/18 09:49 Troponin I 0.12 ng/mL (0-1.5) 09/29/18 09:49 C-Reactive Protein 95.00 mg/L (0-3.0) H 09/28/18 23:12 Total Protein 5.9 g/dL (6.4-8.2) L 09/30/18 04:43 Albumin 2.5 g/dL (3.4-5.0) L 09/30/18 04:43 Globulin 3.4 g/dL (2.5-4.5) 09/30/18 04:43 Albumin/Globulin Ratio 0.7 Ratio (1.1-2.1) L 09/30/18 04:43 Specimen Type Catherized urine 09/29/18 01:32 Urine Color Yellow (YELLOW) 09/29/18 01:32 Urine Appearance Cloudy (CLEAR) 09/29/18 01:32 Urine pH 5.0 (5.0 - 8.0) 09/29/18 01:32 Ur Specific [place] 1.015 (1.000-1.030) 09/29/18 01:32 Urine Protein 3+ (NEGATIVE) 09/29/18 01:32 Urine Glucose (UA) Negative (NEGATIVE) 09/29/18 01:32 Urine Ketones Negative (NEGATIVE) 09/29/18 01:32 Urine Occult Blood 3+ (NEGATIVE) 09/29/18 01:32 Urine Nitrite Negative (NEGATIVE) 09/29/18 01:32 Urine Bilirubin Negative (NEGATIVE) 09/29/18 01:32 Urine Urobilinogen Normal (NORMAL) 09/29/18 01:32 Ur Leukocyte Esterase 3+ (NEGATIVE) 09/29/18 01:32 Urine RBC Tntc /HPF (NONE SEEN) 09/29/18 01:32 Urine WBC Tntc /HPF (NONE SEEN) 09/29/18 01:32 Ur Squamous Epith Cells Few /HPF (NEGATIVE) 09/29/18 01:32 Amorphous Sediment 1+ /HPF (NEGATIVE) 09/29/18 01:32 Urine Bacteria 2+ /HPF (NEGATIVE) 09/29/18 01:32 Ur Culture Indicated? Yes/culture set up 09/29/18 01:32 Other Results Comments: There is stable enlargement of the cardiac silhouette. There is pulmonary vascular congestion without overt edema. No obvious focal infiltrate or significant effusion is identified. No pneumothorax. XRAY XRAY Interpreted by: Radiologist Diagnosis Discharge Problem: Myalgia, Bruising, Hypoalbuminemia, Acute prerenal azotemia ADDITIONAL NOTES Additional Notes Additional Notes: Patient admitted to floor
[2018-09-28] MEDS ORDERED: MORPHINE SULFATE INJ 2 MG INJ ONE (23:15)
[2018-09-28 23:23] LABS: BASOPHILS # (AUTO) 0.1 X10^3/uL (0.0-0.1); BASOPHILS % (AUTO) 0.4 % (0.2-1.0); EOSINOPHILS # (AUTO) 0.2 x10^3/uL (0.0-0.2); EOSINOPHILS % (AUTO) 1.2 % (0.9-2.9); HEMATOCRIT 28.6 % (36.0-47.0); HEMOGLOBIN 9.6 g/dL (12.0-16.0); LYMPHOCYTES # (AUTO) 0.9 X10^3/uL (1.3-2.9); LYMPHOCYTES % (AUTO) 5.3 % (21.0-51.0); MEAN CORPUSCULAR HEMOGLOBIN 31.5 pg (27.0-34.0); MEAN CORPUSCULAR HGB CONC 33.6 g/dL (33.0-35.0); MEAN CORPUSCULAR VOLUME 93.6 fL (80.0-100.0); MEAN PLATELET VOLUME 7.3 fL (7.4-11.0); MONOCYTES # (AUTO) 1.6 x10^3/uL (0.3-0.8); MONOCYTES % (AUTO) 9.7 % (0.0-13.0); NEUTROPHILS # (AUTO) 13.5 x10^3/uL (2.2-4.8); NEUTROPHILS % (AUTO) 83.4 % (42.0-75.0); PLATELET COUNT 284 X10^3/uL (150.0-450.0); RED BLOOD COUNT 3.06 X10^6/uL (3.5-5.4); RED CELL DISTRIBUTION WIDTH 15.8 % (11.6-16.5); WHITE BLOOD COUNT 16.1 X10^3/uL (3.6-10.0)
[2018-09-28 23:30] LABS: ALBUMIN 2.8 g/dL (3.4-5.0); CALCIUM 8.3 mg/dL (8.5-10.1); CARBON DIOXIDE 25.6 mmol/L (21-32); COR CA(FOR HYPOALB) 9.3 mg/dL (8.5-10.1); CREATININE 1.39 mg/dL (0.55-1.02); TOTAL PROTEIN 6.4 g/dL (6.4-8.2)
--- NOTE | 2018-09-28 23:57 | RAD ---
Chest, one view Indication: Myalgia Comparison: 07/31/2017 Findings: There is stable enlargement of the cardiac silhouette. There is pulmonary vascular congestion without overt edema. No obvious focal infiltrate or significant effusion is identified. No pneumothorax. Impression: Stable cardiomegaly and pulmonary vascular congestion without overt edema. Reported By:
[2018-09-29] MEDS: NS 1000 ML 1,000 ML IV SCH (00:13)
[2018-09-29] MEDS ORDERED: TORADOL 30 MG VIAL IVP ONE (01:33)
[2018-09-29] MEDS ORDERED: TORADOL 30 MG VIAL ONE (01:34)
[2018-09-29 02:07] LABS: BILIRUBIN,URINE NEGATIVE (NEGATIVE); BLOOD/HEMOGLOBIN,URINE 3+ (NEGATIVE); GLUCOSE, URINE NEGATIVE (NEGATIVE); KETONES,URINE NEGATIVE (NEGATIVE); LEUKOCYTE ESTERASE ,URINE 3+ (NEGATIVE); NITRITES,URINE NEGATIVE (NEGATIVE); PROTEIN,URINE 3+ (NEGATIVE); UROBILINOGEN,URINE NORMAL (NORMAL)
[2018-09-29 02:13] LABS: APPEARANCE,URINE CLOUDY (CLEAR); COLOR,URINE YELLOW (YELLOW)
[2018-09-29 02:14] LABS: AMORPHOUS SEDIMENT,UR 1+ /HPF (NEGATIVE); BACTERIA,URINE 2+ /HPF (NEGATIVE); RBC,URINE TNTC /HPF (NONE SEEN); SQUAMOUS EPITHELIAL CELL,UR FEW /HPF (NEGATIVE)
[2018-09-29] MEDS ORDERED: NS 1000 ML 1,000 ML IV SCH (03:00)
[2018-09-29 03:27] VITALS: BMI 32.1
[2018-09-29] MEDS: CIPRO IV 400 MG PREMIX* 400 MG/200 ML IV.SOLN. IV SCH (05:57)
[2018-09-29] MEDS: NEURONTIN CAP 300 MG PO SCH ×3 (05:57→21:28)
[2018-09-29 06:07] LABS: BASOPHILS # (AUTO) 0.1 X10^3/uL (0.0-0.1); BASOPHILS % (AUTO) 0.6 % (0.2-1.0); EOSINOPHILS % (AUTO) 0.2 % (0.9-2.9); HEMATOCRIT 27.3 % (36.0-47.0); HEMOGLOBIN 8.9 g/dL (12.0-16.0); LYMPHOCYTES % (AUTO) 5.5 % (21.0-51.0); MEAN CORPUSCULAR HEMOGLOBIN 30.9 pg (27.0-34.0); MEAN CORPUSCULAR HGB CONC 32.8 g/dL (33.0-35.0); MEAN CORPUSCULAR VOLUME 94.4 fL (80.0-100.0); MEAN PLATELET VOLUME 7.6 fL (7.4-11.0); MONOCYTES # (AUTO) 1.9 x10^3/uL (0.3-0.8); MONOCYTES % (AUTO) 10.9 % (0.0-13.0); NEUTROPHILS # (AUTO) 14.6 x10^3/uL (2.2-4.8); NEUTROPHILS % (AUTO) 82.8 % (42.0-75.0); PLATELET COUNT 260 X10^3/uL (150.0-450.0); RED BLOOD COUNT 2.89 X10^6/uL (3.5-5.4); RED CELL DISTRIBUTION WIDTH 16.3 % (11.6-16.5); WHITE BLOOD COUNT 17.7 X10^3/uL (3.6-10.0)
[2018-09-29 06:21] LABS: ALBUMIN 2.4 g/dL (3.4-5.0); CALCIUM 7.9 mg/dL (8.5-10.1); CARBON DIOXIDE 24.1 mmol/L (21-32); COR CA(FOR HYPOALB) 9.2 mg/dL (8.5-10.1); CREATININE 1.47 mg/dL (0.55-1.02); TOTAL PROTEIN 5.9 g/dL (6.4-8.2)
[2018-09-29 06:24] LABS: BAND NEUTROPHILS % 7 % (0-10); PLATELET MORPHOLOGY COMMENT NORMAL (NORMAL)
[2018-09-29] MEDS ORDERED: POTASSIUM CHL 40 MEQ/NS 0.45% 500 ML IV PRN ×2 (06:30)
[2018-09-29] MEDS ORDERED: K-DUR TAB 20 MEQ PO PRN ×2 (06:30)
[2018-09-29] MEDS ORDERED: POTASSIUM CHL 60 MEQ/NS 0.45% 500 ML IV PRN ×2 (06:30)
[2018-09-29] MEDS ORDERED: MICRO K EXTEN CAP 10 MEQ PO PRN ×2 (06:30)
[2018-09-29] MEDS ORDERED: POTASSIUM CHLORIDE LIQ 20 MEQ UDC PO PRN ×2 (06:30)
[2018-09-29] MEDS ORDERED: K-RIDER 10 MEQ/NS 100 ML 10 MEQ/100 ML BAG IV PRN ×2 (06:30)
[2018-09-29] MEDS ORDERED: KLOR-CON PO PRN ×2 (06:30)
[2018-09-29] MEDS ORDERED: K-DUR TAB 20 MEQ PO ONE (06:37)
[2018-09-29] MEDS: COREG TAB 3.125 MG PO SCH ×2 (08:48→20:50)
[2018-09-29] MEDS: VITAMIN D3 PO SCH (08:48)
[2018-09-29] MEDS: ASPIRIN EC 81 MG PO SCH (08:49)
[2018-09-29] MEDS: ZANTAC PO SCH (08:49)
[2018-09-29] MEDS: EFFEXOR XR 75 MG CAP PO SCH (08:49)
[2018-09-29] MEDS: PLAVIX PO SCH (08:49)
[2018-09-29] MEDS: INSULIN GLARGINE LIXISENATIDE subcut SCH ×2 (08:50→22:12)
[2018-09-29] MEDS ORDERED: PATIENT'S HOME MEDICATION (Cholecalciferol (Vitamin D3) [Cholecalciferol (Vitamin D3)] 1 T PO SCH (09:00)
[2018-09-29] MEDS ORDERED: CIPRO IV 400 MG PREMIX* 400 MG/200 ML IV.SOLN. IV SCH (09:00)
[2018-09-29] MEDS ORDERED: PATIENT'S HOME MEDICATION (Clopidogrel Bisulfate [Plavix] 75 MG) PO SCH (09:00)
--- NOTE | 2018-09-29 10:02 | DR.H&P ---
H&P - History & Physical for Day of: H&P Date: 09/29/18 - Chief Complaint Chief Complaint: LEG CRAMPS AND BACK PAIN - History of Present Illness History of Present Illness: IS A 83 YEAR OLD PATIENT OF OURS WHO PRESENTED TO THE EMERGENCY ROOM VIA EMS WITH COMPLAINTS OF LEG CRAMPS AND BACK PAIN. ON SCENE, EMS REPORTS THAT PATIENT APPEARED TO HAVE ALTERED MENTAL STATUS AND THAT HER OXYGEN SATURATION WAS 87%. FAMILY REPORTS THAT PATIENT HAS BEEN FALLING AT HOME. ON ARRIVAL TO THE ER, VITALS WERE 99.0-89-18-100%NC-142/67. LABS WERE OBTAINED. ABNORMAL LAB VALUES INCLUDE THE FOLLOWING: WBC 16.1, RBC 3.06, HGB 9.6, HCT 28.6, BUN 34, CREATININE 1.39, GLUCOSE 146, CALCIUM 8.3, CRP 95.00, ALBUMIN 2.8. A AGUILAR CATHETER WAS INSERTED AND A URINALYSIS WAS OBTAINED. URINALYSIS REVEALED: WBC TNTC, RBC TNTC, LEUKOCYTES 3+, BACTERIA 2+, PROTEIN 3+, OCCULT BLOOD 3+. URINE AND BLOOD CULTURES WERE OBTAINED. A CHEST XRAY WAS OBTAINED AND REVEALED: STABLE CARDIOMEGALY AND PULMONARY VASCULAR CONGESTION WITHOUT OVERT EDEMA. SHE WAS GIVEN MORPHINE 2MG IV X 1 AND TORADOL 30MG IV X 1 WITH ONLY MILD IMPROVEMENT IN PAIN. SHE WAS ADMITTED FOR FURTHER EVALUATION AND TREATMENT OF URINARY TRACT INFECTION, PRERENAL AZOTEMIA, AND HYPOALBUMINEMIA. SHE WAS STARTED ON NORMAL SALINE AT 80ML/HR CIPRO 400MG IV DAILY, AND THE POTASSIUM PROTOCOL. HOME MEDICATIONS WERE RESUMED. WE PLAN TO FOLLOW UP WITH AM LABS AND CONTINUE TO MONITOR. - Past Medical History Past Medical History: Coronary Artery Disease, Hypertension, Diabetes, Renal Disease, Depression, Anemia, GERD, Arthritis, CHF Additional Medical History: Cataracts, Constipation, Urinary Tract Infections - Past Surgical History Surgical History: Hysterectomy, Ortho Surgery - Family History Family Medical History: [place], Coronary Artery Disease, Hypertension - Social History Does patient currently use any type of tobacco product: No Have you used tobacco products in the last 12 months: No Alcohol Use: None Drug Use: Prescription Drugs - Medications Home Medications: ezetimibe [From Zetia] Allergy (Verified 07/08/17 18:25) Influenza Virus Vaccines Allergy (Verified 07/08/17 18:25) Penicillins Allergy (Verified 07/08/17 18:25) pneumococcal vaccine Allergy (Verified 07/08/17 18:25) ropinirole [From Requip] Allergy (Verified 07/08/17 18:25) CONTINUE taking the following medications Pantoprazole Sodium [Protonix] 40 mg PO HS 09/29/18 [History] insulin glargine-lixisenatide [[place] 100/33] 40 units SUBCUT DAILY 09/29/18 [History] ranitidine HCl 150 mg PO DAILY 09/29/18 [History] - Review of Systems Constitutional: Weakness Eyes: No Symptoms Reported ENT: No Symptoms Reported Respiratory: Shortness of Breath Cardiovascular: No Symptoms Reported Gastrointestinal: Abdominal Pain Genitourinary: Dysuria, Hematuria Musculoskeletal: Back Pain, Leg Pain Skin: Bruising (SCATTERED BRUISING ) Neurological: Weakness, Confusion - Physical Exam Vital Signs: Temperature 97.9 F Pulse Rate [Right Brachial] 83 Pulse Rate 89 Respiratory Rate 20 Blood Pressure [Left Arm] 140/60 Blood Pressure [Right Arm] 170/86 Blood Pressure 142/67 O2 Sat by Pulse Oximetry 97 Oriented: Person Eyes: Normal Ear: Normal Nose: Normal Throat: Normal Respiratory: Diminished Throughout Cardiovascular: Normal. negative: S3, S4, Murmur : Dysuria, Hematuria Auscultation: Bowel Sounds: Normal Palpation: Normal Tenderness: Suprapubic Skin: Bruising (SCATTERED BRUISING ) Musculoskeletal: Right, Left, Leg, Swelling, Tender Psychiatric: Other (CONFUSION ) Mood Description: Calm Affect: Normal Speech Pattern: Inappropriate - Assessment/Plan (1) Urinary tract infection Qualifiers: Urinary tract infection type: acute cystitis Hematuria presence: without hematuria Qualified Code(s): N30.00 - Acute cystitis without hematuria Status: Acute Plan: NS AT 80ML/HR, CIPRO 400MG IV DAILY, CONTINUE TO MONITOR (2) Prerenal azotemia Status: Acute Plan: NORMAL SALINE AT 80ML/HR, CONTINUE TO MONITOR (3) Hypoalbuminemia Status: Acute Plan: ALBUMIN 25% IV DAILY - Allergies Allergies/Adverse Reactions: Allergies Allergy/AdvReac Type Severity Reaction Status Date / Time ezetimibe [From Zetia] Allergy Verified 07/08/17 18:25 Influenza Virus Vaccines Allergy Verified 07/08/17 18:25 Penicillins Allergy Verified 07/08/17 18:25 pneumococcal vaccine Allergy Verified 10/19/17 18:25 ropinirole [From Requip] Allergy Verified 07/08/17 18:25
[2018-09-29 10:26] LABS: CKMB % 1.1 % (<4); CREATINE KINASE MB 1.2 ng/mL (0-4.0); TROPONIN I 0.12 ng/mL (0-1.5)
[2018-09-29] MEDS: ALBUMIN HUMAN 25%- 100 ML 100 ML IV SCH (14:11)
[2018-09-29] MEDS: LOVENOX INJ 40 MG SYR SC SCH (14:13)
[2018-09-29] MEDS: BACTROBAN CREAM TOP SCH ×2 (16:57→21:28)
[2018-09-29] MEDS: PROTONIX TAB 40 MG PO SCH (20:50)
[2018-09-29] MEDS ORDERED: ZOCOR TAB 40 MG PO SCH (21:00)
[2018-09-29] MEDS ORDERED: PANTOPRAZOLE SODIUM 40 MG PO SCH (21:00)
[2018-09-29] MEDS: MAGNESIUM SULFATE 1 GRAM/100 mL PREMIX 1 GM/100 ML BAG IV PRN ×2 (21:29→23:01)
[2018-09-29] MEDS: NORCO 10/325 TAB PO PRN (21:35)
[2018-09-29] MEDS: HumuLIN R SUBCUT PRN (22:12)
[2018-09-30] MEDS: MAGNESIUM SULFATE 1 GRAM/100 mL PREMIX 1 GM/100 ML BAG IV PRN ×2 (00:10→01:30)
[2018-09-30 05:19] LABS: BASOPHILS # (AUTO) 0.1 X10^3/uL (0.0-0.1); BASOPHILS % (AUTO) 0.6 % (0.2-1.0); EOSINOPHILS # (AUTO) 0.2 x10^3/uL (0.0-0.2); EOSINOPHILS % (AUTO) 1.4 % (0.9-2.9); HEMATOCRIT 23.7 % (36.0-47.0); HEMOGLOBIN 7.8 g/dL (12.0-16.0); LYMPHOCYTES % (AUTO) 8.1 % (21.0-51.0); MEAN CORPUSCULAR HEMOGLOBIN 31.4 pg (27.0-34.0); MEAN CORPUSCULAR HGB CONC 32.8 g/dL (33.0-35.0); MEAN CORPUSCULAR VOLUME 95.6 fL (80.0-100.0); MEAN PLATELET VOLUME 7.9 fL (7.4-11.0); MONOCYTES % (AUTO) 7.9 % (0.0-13.0); NEUTROPHILS # (AUTO) 10.4 x10^3/uL (2.2-4.8); PLATELET COUNT 226 X10^3/uL (150.0-450.0); RED BLOOD COUNT 2.48 X10^6/uL (3.5-5.4); RED CELL DISTRIBUTION WIDTH 15.7 % (11.6-16.5); WHITE BLOOD COUNT 12.6 X10^3/uL (3.6-10.0)
[2018-09-30] MEDS: NEURONTIN CAP 300 MG PO SCH ×3 (05:38→22:54)
[2018-09-30] MEDS: HumuLIN R SUBCUT PRN ×3 (05:39→21:08)
[2018-09-30 05:40] LABS: ALBUMIN 2.5 g/dL (3.4-5.0); CALCIUM 8.1 mg/dL (8.5-10.1); CARBON DIOXIDE 24.9 mmol/L (21-32); COR CA(FOR HYPOALB) 9.3 mg/dL (8.5-10.1); CREATININE 1.5 mg/dL (0.55-1.02); MAGNESIUM 2.7 mg/dL (1.7-2.9); TOTAL PROTEIN 5.9 g/dL (6.4-8.2)
[2018-09-30 06:35] LABS: HYPOCHROMASIA SLIGHT; PLATELET MORPHOLOGY COMMENT NORMAL (NORMAL)
[2018-09-30] MEDS: LOVENOX INJ 40 MG SYR SC SCH (08:45)
[2018-09-30] MEDS: ALBUMIN HUMAN 25%- 100 ML 100 ML IV SCH (08:45)
[2018-09-30] MEDS: COREG TAB 3.125 MG PO SCH ×2 (08:46→20:57)
[2018-09-30] MEDS: PLAVIX PO SCH (08:47)
[2018-09-30] MEDS: EFFEXOR XR 75 MG CAP PO SCH (08:47)
[2018-09-30] MEDS: ASPIRIN EC 81 MG PO SCH (08:47)
[2018-09-30] MEDS: ZANTAC PO SCH (08:48)
[2018-09-30] MEDS: VITAMIN D3 PO SCH (08:48)
[2018-09-30] MEDS: BACTROBAN CREAM TOP SCH ×2 (08:48→20:58)
[2018-09-30] MEDS: CIPRO IV 400 MG PREMIX* 400 MG/200 ML IV.SOLN. IV SCH (11:15)
--- NOTE | 2018-09-30 11:39 | VAS ---
History: Bilateral leg pain and foot ulcers Study: Doppler arterial ultrasound of both lower extremities Findings: On the right there are mostly biphasic waveforms except for monophasic waveform in the distal posterior tibial artery. Peak systolic velocities on the right : Right common femoral artery: 120.1 SFA proximal: 112.4 SFA mid: 114.7 SFA distal: 90 Popliteal proximal: 125 Popliteal distal: 123.9 SPECIAL DIST[employer]BUTION CLERK distal: 74.4 On the left there are biphasic waveforms. Peak systolic velocities on the left: Left common femoral artery: 94.6 SFA proximal: 152.4 SFA mid: 138.6 SFA distal: 139.6 Popliteal proximal: 135.9 Popliteal distal: 165.3 SPECIAL DISTRIBUTION CLERK distal: 58.8 Impression: 1. Approximately 20% narrowing of the right popliteal artery 2. 20-50% narrowing of the right superficial femoral artery 3. Approximately 20% narrowing of the distal left popliteal artery Reported By:
[2018-09-30] MEDS: PROCALAMINE 3 % 1,000 ML IV SCH (13:36)
[2018-09-30] MEDS: NS 1000 ML 1,000 ML IV SCH ×2 (15:00→20:56)
[2018-09-30] MEDS: SNACK - Diabetic Appropriate PO SCH (20:57)
[2018-09-30] MEDS: PROTONIX TAB 40 MG PO SCH (20:58)
[2018-09-30] MEDS: NORCO 10/325 TAB PO PRN (21:11)
[2018-09-30] MEDS: INSULIN GLARGINE LIXISENATIDE subcut SCH (22:56)
[2018-10-01] MEDS: NS 1000 ML 1,000 ML IV SCH ×4 (00:52→20:20)
[2018-10-01 05:51] LABS: BASOPHILS # (AUTO) 0.1 X10^3/uL (0.0-0.1); BASOPHILS % (AUTO) 0.5 % (0.2-1.0); EOSINOPHILS # (AUTO) 0.3 x10^3/uL (0.0-0.2); EOSINOPHILS % (AUTO) 2.5 % (0.9-2.9); HEMATOCRIT 24.3 % (36.0-47.0); HEMOGLOBIN 8.1 g/dL (12.0-16.0); LYMPHOCYTES % (AUTO) 7.9 % (21.0-51.0); MEAN CORPUSCULAR HEMOGLOBIN 31.4 pg (27.0-34.0); MEAN CORPUSCULAR HGB CONC 33.3 g/dL (33.0-35.0); MEAN CORPUSCULAR VOLUME 94.3 fL (80.0-100.0); MEAN PLATELET VOLUME 7.7 fL (7.4-11.0); MONOCYTES % (AUTO) 7.3 % (0.0-13.0); NEUTROPHILS # (AUTO) 10.8 x10^3/uL (2.2-4.8); NEUTROPHILS % (AUTO) 81.8 % (42.0-75.0); PLATELET COUNT 254 X10^3/uL (150.0-450.0); RED BLOOD COUNT 2.58 X10^6/uL (3.5-5.4); RED CELL DISTRIBUTION WIDTH 15.8 % (11.6-16.5); WHITE BLOOD COUNT 13.2 X10^3/uL (3.6-10.0)
[2018-10-01 06:05] LABS: ALBUMIN 2.7 g/dL (3.4-5.0); CALCIUM 8.1 mg/dL (8.5-10.1); CARBON DIOXIDE 22.6 mmol/L (21-32); COR CA(FOR HYPOALB) 9.1 mg/dL (8.5-10.1); CREATININE 1.4 mg/dL (0.55-1.02); TOTAL PROTEIN 6.3 g/dL (6.4-8.2)
[2018-10-01] MEDS: NEURONTIN CAP 300 MG PO SCH ×3 (06:14→22:28)
[2018-10-01] MEDS: HumuLIN R SUBCUT PRN ×4 (06:15→20:56)
[2018-10-01] MEDS: CIPRO IV 400 MG PREMIX* 400 MG/200 ML IV.SOLN. IV SCH (09:37)
[2018-10-01] MEDS: VITAMIN D3 PO SCH (09:39)
[2018-10-01] MEDS: ASPIRIN EC 81 MG PO SCH (09:39)
[2018-10-01] MEDS: COREG TAB 3.125 MG PO SCH ×2 (09:39→20:24)
[2018-10-01] MEDS: EFFEXOR XR 75 MG CAP PO SCH (09:39)
[2018-10-01] MEDS: ZANTAC PO SCH (09:39)
[2018-10-01] MEDS: LOVENOX INJ 30 MG SYR SC SCH (09:40)
[2018-10-01] MEDS: PLAVIX PO SCH (09:41)
[2018-10-01] MEDS: MILK OF MAGNESIA PO SCH ×2 (09:41→20:26)
[2018-10-01] MEDS: NORCO 10/325 TAB PO PRN ×2 (09:43→20:59)
[2018-10-01] MEDS: BACTROBAN CREAM TOP SCH ×2 (09:48→20:28)
[2018-10-01] MEDS ORDERED: LASIX IVP NR (10:00)
[2018-10-01] MEDS ORDERED: BUTT CREAM (COMPOUND) ONE (10:10)
[2018-10-01] MEDS ORDERED: NYSTATIN POWDER ONE (10:10)
[2018-10-01] MEDS: NYSTATIN POWDER TOP SCH ×2 (10:20→20:28)
[2018-10-01] MEDS: ALBUMIN HUMAN 25%- 100 ML 100 ML IV SCH (10:51)
[2018-10-01] MEDS: BUTT CREAM (COMPOUND) TOP SCH ×2 (10:56→20:28)
--- NOTE | 2018-10-01 12:33 | RAD ---
Examination: AP chest History: SOB, low oxygen Comparison 09/28/2018 Findings: Mild stable cardiomegaly with increasing congestion and developing pulmonary infiltrates consistent with pulmonary edema. Small pleural effusions are noted in the costophrenic angles. Impression: Cardiomegaly with increasing CHF, pulmonary edema and small pleural effusions. This process may be cardiogenic or related to hypervolemia. Reported By:
[2018-10-01] MEDS: PROCALAMINE 3 % 1,000 ML IV SCH (20:20)
[2018-10-01] MEDS: PROTONIX TAB 40 MG PO SCH (20:24)
[2018-10-01] MEDS: COLACE CAP 100 MG PO SCH (20:24)
[2018-10-01] MEDS: VANCOMYCIN HCL 500 MG VIAL 500 MG in NS 100 ML IV 100 ML IV SCH (20:26)
[2018-10-01] MEDS: SNACK - Diabetic Appropriate PO SCH (20:30)
[2018-10-01] MEDS ORDERED: AYR NASAL DROPS PRN (20:50)
[2018-10-01] MEDS ORDERED: ZYVOX 600MG IV 600 MG/300 ML BAG IV SCH (21:00)
[2018-10-01] MEDS: INSULIN GLARGINE LIXISENATIDE subcut SCH (22:27)
[2018-10-02] MEDS: HumuLIN R SUBCUT PRN ×4 (05:36→20:56)
[2018-10-02] MEDS: NEURONTIN CAP 300 MG PO SCH ×4 (05:36→20:59)
[2018-10-02 06:06] LABS: BASOPHILS # (AUTO) 0.1 X10^3/uL (0.0-0.1); BASOPHILS % (AUTO) 0.7 % (0.2-1.0); EOSINOPHILS # (AUTO) 0.1 x10^3/uL (0.0-0.2); EOSINOPHILS % (AUTO) 1.3 % (0.9-2.9); HEMATOCRIT 22.5 % (36.0-47.0); HEMOGLOBIN 7.6 g/dL (12.0-16.0); LYMPHOCYTES # (AUTO) 0.5 X10^3/uL (1.3-2.9); LYMPHOCYTES % (AUTO) 5.1 % (21.0-51.0); MEAN CORPUSCULAR HGB CONC 33.9 g/dL (33.0-35.0); MEAN CORPUSCULAR VOLUME 94.4 fL (80.0-100.0); MONOCYTES # (AUTO) 0.7 x10^3/uL (0.3-0.8); MONOCYTES % (AUTO) 6.5 % (0.0-13.0); NEUTROPHILS % (AUTO) 86.4 % (42.0-75.0); PLATELET COUNT 237 X10^3/uL (150.0-450.0); RED BLOOD COUNT 2.38 X10^6/uL (3.5-5.4); RED CELL DISTRIBUTION WIDTH 15.6 % (11.6-16.5); WHITE BLOOD COUNT 10.4 X10^3/uL (3.6-10.0)
[2018-10-02 06:22] LABS: ALBUMIN 2.7 g/dL (3.4-5.0); CALCIUM 8.1 mg/dL (8.5-10.1); COR CA(FOR HYPOALB) 9.1 mg/dL (8.5-10.1); CREATININE 1.38 mg/dL (0.55-1.02); TOTAL PROTEIN 6.1 g/dL (6.4-8.2)
[2018-10-02 06:28] LABS: PLATELET MORPHOLOGY COMMENT NORMAL (NORMAL)
[2018-10-02] MEDS: ALBUMIN HUMAN 25%- 100 ML 100 ML IV SCH (08:26)
[2018-10-02] MEDS: COREG TAB 3.125 MG PO SCH ×2 (08:28→20:57)
[2018-10-02] MEDS: ZANTAC PO SCH (08:28)
[2018-10-02] MEDS: MILK OF MAGNESIA PO SCH ×2 (08:28→21:02)
[2018-10-02] MEDS: LOVENOX INJ 30 MG SYR SC SCH (08:28)
[2018-10-02] MEDS: BACTROBAN CREAM TOP SCH ×2 (08:29→21:01)
[2018-10-02] MEDS: VITAMIN D3 PO SCH (08:29)
[2018-10-02] MEDS: PLAVIX PO SCH (08:29)
[2018-10-02] MEDS: ASPIRIN EC 81 MG PO SCH (08:29)
[2018-10-02] MEDS: EFFEXOR XR 75 MG CAP PO SCH (08:29)
[2018-10-02] MEDS: BUTT CREAM (COMPOUND) TOP SCH ×2 (08:30→21:02)
[2018-10-02] MEDS: NYSTATIN POWDER TOP SCH ×2 (08:31→21:02)
[2018-10-02] MEDS: VANCOMYCIN HCL 500 MG VIAL 500 MG in NS 100 ML IV 100 ML IV SCH ×2 (09:25→20:56)
[2018-10-02] MEDS: NS 1000 ML 1,000 ML IV SCH ×2 (15:06→20:54)
[2018-10-02] MEDS: SNACK - Diabetic Appropriate PO SCH (20:54)
[2018-10-02] MEDS: PROCALAMINE 3 % 1,000 ML IV SCH (20:55)
[2018-10-02] MEDS: PROTONIX TAB 40 MG PO SCH (20:57)
[2018-10-02] MEDS: COLACE CAP 100 MG PO SCH (20:57)
[2018-10-02] MEDS: NORCO 10/325 TAB PO PRN (20:57)
[2018-10-02] MEDS: INSULIN GLARGINE LIXISENATIDE subcut SCH (21:01)
[2018-10-02] MEDS ORDERED: ZOFRAN TAB 4 MG SL PRN (21:22)
[2018-10-03] MEDS: NEURONTIN CAP 300 MG PO SCH ×2 (05:16→14:16)
[2018-10-03 05:25] LABS: BASOPHILS # (AUTO) 0.1 X10^3/uL (0.0-0.1); BASOPHILS % (AUTO) 0.6 % (0.2-1.0); EOSINOPHILS # (AUTO) 0.4 x10^3/uL (0.0-0.2); EOSINOPHILS % (AUTO) 4.2 % (0.9-2.9); HEMATOCRIT 24.2 % (36.0-47.0); HEMOGLOBIN 8.1 g/dL (12.0-16.0); LYMPHOCYTES # (AUTO) 0.7 X10^3/uL (1.3-2.9); LYMPHOCYTES % (AUTO) 7.5 % (21.0-51.0); MEAN CORPUSCULAR HEMOGLOBIN 31.4 pg (27.0-34.0); MEAN CORPUSCULAR HGB CONC 33.3 g/dL (33.0-35.0); MEAN PLATELET VOLUME 7.9 fL (7.4-11.0); MONOCYTES # (AUTO) 0.7 x10^3/uL (0.3-0.8); MONOCYTES % (AUTO) 6.8 % (0.0-13.0); NEUTROPHILS # (AUTO) 8.1 x10^3/uL (2.2-4.8); NEUTROPHILS % (AUTO) 80.9 % (42.0-75.0); PLATELET COUNT 254 X10^3/uL (150.0-450.0); RED BLOOD COUNT 2.58 X10^6/uL (3.5-5.4); RED CELL DISTRIBUTION WIDTH 15.6 % (11.6-16.5)
[2018-10-03 05:40] LABS: ALBUMIN 2.9 g/dL (3.4-5.0); CALCIUM 8.8 mg/dL (8.5-10.1); CARBON DIOXIDE 26.8 mmol/L (21-32); COR CA(FOR HYPOALB) 9.7 mg/dL (8.5-10.1); CREATININE 1.2 mg/dL (0.55-1.02); TOTAL PROTEIN 6.4 g/dL (6.4-8.2)
[2018-10-03] MEDS: HumuLIN R SUBCUT PRN (05:48)
[2018-10-03 05:59] LABS: BAND NEUTROPHILS % 6 % (0-10)
[2018-10-03 06:00] LABS: PLATELET MORPHOLOGY COMMENT NORMAL (NORMAL)
[2018-10-03] MEDS ORDERED: PHARMACY COMMENT IV NR (08:30)
--- NOTE | 2018-10-03 08:32 | PCM.PROG ---
Progress Note - Progress Note for Day of Date of Exam: 09/30/18 - Subjective Subjective: WAS ADMITTED FOR UTI, BILATERAL LOWER EXTREMITY CELLULITIS, AND PRERENAL AZOTEMIA. TODAY, SHE IS ALERT AND ORIENTED, LYING IN BED ON MORNING ROUNDS. SHE IS NOTED WITH COMPLAINTS OF WEAKNESS AND PAIN TO THE FEET. SHE ALSO REPORTS MILD ABDOMINAL PAIN. ON EXAMINATION, HEART IS REGULAR IN RATE AND RHYTHM. BILATERAL LUNGS ARE NOTED WITH DIMINISHED LUNG SOUNDS THROUGHOUT. ABDOMEN IS ROUND, SOFT, AND NOTED WITH MILD SUPRAPUBIC TENDERNESS. NORMAL BOWEL SOUNDS ARE NOTED IN ALL QUADRANTS. THERE IS SCATTERED BRUISING NOTED TO EXTREMITIES. SHE IS NOTED WITH MULTIPLE WOUNDS TO THE RIGHT FOOT AND THE RIGHT FOREARM. ERYTHEMA AND MILD DRAINAGE NOTED TO THESE AREAS. REDNESS ALSO NOTED TO LEFT LEG. HER VITALS THIS MORNING ARE 98.0-86-18-94%-129/60. SHE HAS BEEN FEBRILE THROUGHOUT THE NIGHT. ABNORMAL LABS TODAY INCLUDE THE FOLLOWING: WBC 12.6, RBC 2.48, HGB 7.8, HCT 23.7, BUN 38, CREATININE 1.50, GLUCOSE 260, CALCIUM 8.1, TOTAL PROTEIN 5.9, ALBUMIN 2.5. WOUND CULTURES ARE PENDING. TODAY, WE PLAN TO START PROCALAMINE. WE WILL OBTAIN LOWER EXTREMITY ARTERIAL ULTRASOUNDS. OTHERWISE, WE WILL CONTINUE WITH IV THERAPY AND IV HYDRATION. WE PLAN TO FOLLOW UP WITH AM LABS AND CONTINUE TO MONITOR. - Past Medical Family Social History Past Med/Fam/Surg Hx: No changes since H&P Allergies: Allergies ezetimibe [From Zetia] Allergy (Verified 07/08/17 18:25) Influenza Virus Vaccines Allergy (Verified 07/08/17 18:25) Penicillins Allergy (Verified 07/08/17 18:25) pneumococcal vaccine Allergy (Verified 07/08/17 18:25) ropinirole [From Requip] Allergy (Verified 07/08/17 18:25) - Review of Systems ROS: No change since H&P - Vital Signs and I&O's Vital Signs: Temperature 98 F Pulse Rate [Right Brachial] 81 Pulse Rate 89 Respiratory Rate 20 Blood Pressure [Left Arm] 140/60 Blood Pressure [Right Arm] 180/75 Blood Pressure 142/67 O2 Sat by Pulse Oximetry 95 Intake and Output: Intake & Output 09/30/18 10/01/18 10/02/18 10/03/18 11:59 11:59 11:59 11:59 Intake Total 2765 / 2765 2051 1411 / 1411 2085 / 2085 Output Total 950 / 950 900 / 900 2049 / 2099 Balance 1815 / 1815 1152 / 1152 -639 / -639 - - Physical Exam Oriented: Person Eyes: Normal Ear: Normal Nose: Normal Throat: Normal Cardiovascular: Normal. negative: S3, S4, Murmur : Dysuria, Hematuria Auscultation: Bowel Sounds: Normal Tenderness: Suprapubic Skin: Red, Tender, Wound (RIGHT FOOT AND RIGHT FOREARM), Bruising (SCATTERED BRUISING ) Musculoskeletal: Right, Left, Leg, Swelling, Tender Psychiatric: Other (CONFUSION ) Mood Description: Calm Affect: Normal Speech Pattern: Clear, Appropriate - Laboratory and Diagnostics Result Diagrams: 10/03/18 04:28 10/03/18 04:28 Labs: 09/29/18 17:00 Arm - Right Gram Stain - Final 09/29/18 17:00 Arm - Right Wound Culture - Final Methicillin Resis Staph Aureus 09/29/18 01:32 Urine,Catheterized Urine Culture - Final Enterococcus Faecalis 09/29/18 01:51 Blood Blood Culture - Preliminary 09/29/18 01:45 Blood Blood Culture - Preliminary Laboratory WBC 10.0 X10^3/uL (3.6-10.0) 10/03/18 04:28 RBC 2.58 X10^6/uL (3.5-5.4) L 10/03/18 04:28 Hgb 8.1 g/dL (12.0-16.0) L 10/03/18 04:28 Hct 24.2 % (36.0-47.0) L 10/03/18 04:28 MCV 94.0 fL (80.0-100.0) 10/03/18 04:28 MCH 31.4 pg (27.0-34.0) 10/03/18 04:28 MCHC 33.3 g/dL (33.0-35.0) 10/03/18 04:28 RDW 15.6 % (11.6-16.5) 10/03/18 04:28 Plt Count 254 X10^3/uL (150.0-450.0) 10/03/18 04:28 Plt Count Comment Adequate (ADEQUATE) 10/03/18 04:28 MPV 7.9 fL (7.4-11.0) 10/03/18 04:28 Neut % (Auto) 80.9 % (42.0-75.0) H 10/03/18 04:28 Lymph % (Auto) 7.5 % (21.0-51.0) L 10/03/18 04:28 [place] % (Auto) 6.8 % (0.0-13.0) 10/03/18 04:28 Eos % (Auto) 4.2 % (0.9-2.9) H 10/03/18 04:28 Baso % (Auto) 0.6 % (0.2-1.0) 10/03/18 04:28 Neut # (Auto) 8.1 x10^3/uL (2.2-4.8) H 10/03/18 04:28 Lymph # (Auto) 0.7 X10^3/uL (1.3-2.9) L 10/03/18 04:28 [place] # (Auto) 0.7 x10^3/uL (0.3-0.8) 10/03/18 04:28 Eos # (Auto) 0.4 x10^3/uL (0.0-0.2) H 10/03/18 04:28 Baso # (Auto) 0.1 X10^3/uL (0.0-0.1) 10/03/18 04:28 Absolute Nucleated RBC 0.0 /100WBC 10/03/18 04:28 Total Counted 100 10/03/18 04:28 Neutrophils % (Manual) 69 % (39-76) 10/03/18 04:28 Band Neutrophils % 6 % (0-10) 10/03/18 04:28 Lymphocytes % (Manual) 13 % (13-43) 10/03/18 04:28 Monocytes % (Manual) 10 % (4-9) H 10/03/18 04:28 Eosinophils % (Manual) 2 % (0-6) 10/03/18 04:28 Plt Morphology Comment Normal (NORMAL) 10/03/18 04:28 RBC Morphology Normal (NORMAL) 10/03/18 04:28 Hypochromasia Slight A 09/30/18 04:43 Sodium 139 mmol/L (136-145) 10/03/18 04:28 Corrected Sodium 140 mmol/L (136-145) 10/03/18 04:28 Potassium 4.8 mmol/L (3.5-5.1) 10/03/18 04:28 Chloride 104 mmol/L (98-107) 10/03/18 04:28 Carbon Dioxide 26.8 mmol/L (21-32) 10/03/18 04:28 BUN 38 mg/dL (7-18) H 10/03/18 04:28 Creatinine 1.20 mg/dL (0.55-1.02) H 10/03/18 04:28 Est GFR (MDRD) Af Amer 55 (>60) L 10/03/18 04:28 Est GFR (MDRD) Non-Af 46 (>60) L 10/03/18 04:28 Glucose 160 mg/dL (65-99) H 10/03/18 04:28 POC Glucose (mg/dL) 158 mg/dL (65-99) H 10/03/18 05:14 Hemoglobin A1c 7.3 % 10/02/18 05:10 Calcium 8.8 mg/dL (8.5-10.1) 10/03/18 04:28 Corrected Calcium 9.7 mg/dL (8.5-10.1) 10/03/18 04:28 Magnesium 2.7 mg/dL (1.7-2.9) 09/30/18 04:43 Total Bilirubin 0.50 mg/dL (0.2-1.0) 10/03/18 04:28 AST 22 Units/L (15-37) 10/03/18 04:28 ALT 32 Units/L (12-78) 10/03/18 04:28 Alkaline Phosphatase 76 Units/L (46-116) 10/03/18 04:28 Creatine Kinase 108 Units/L (26-192) 09/29/18 09:49 CK-MB (CK-2) 1.2 ng/mL (0-4.0) 09/29/18 09:49 CK/CKMB % Calc 1.1 % (<4) 09/29/18 09:49 Troponin I 0.12 ng/mL (0-1.5) 09/29/18 09:49 C-Reactive Protein 95.00 mg/L (0-3.0) H 09/28/18 23:12 Total Protein 6.4 g/dL (6.4-8.2) 10/03/18 04:28 Albumin 2.9 g/dL (3.4-5.0) L 10/03/18 04:28 Globulin 3.5 g/dL (2.5-4.5) 10/03/18 04:28 Albumin/Globulin Ratio 0.8 Ratio (1.1-2.1) L 10/03/18 04:28 Specimen Type Catherized urine 09/29/18 01:32 Urine Color Yellow (YELLOW) 09/29/18 01:32 Urine Appearance Cloudy (CLEAR) 09/29/18 01:32 Urine pH 5.0 (5.0 - 8.0) 09/29/18 01:32 Ur Specific [place] 1.015 (1.000-1.030) 09/29/18 01:32 Urine Protein 3+ (NEGATIVE) 09/29/18 01:32 Urine Glucose (UA) Negative (NEGATIVE) 09/29/18 01:32 Urine Ketones Negative (NEGATIVE) 09/29/18 01:32 Urine Occult Blood 3+ (NEGATIVE) 09/29/18 01:32 Urine Nitrite Negative (NEGATIVE) 09/29/18 01:32 Urine Bilirubin Negative (NEGATIVE) 09/29/18 01:32 Urine Urobilinogen Normal (NORMAL) 09/29/18 01:32 Ur Leukocyte Esterase 3+ (NEGATIVE) 09/29/18 01:32 Urine RBC Tntc /HPF (NONE SEEN) 09/29/18 01:32 Urine WBC Tntc /HPF (NONE SEEN) 09/29/18 01:32 Ur Squamous Epith Cells Few /HPF (NEGATIVE) 09/29/18 01:32 Amorphous Sediment 1+ /HPF (NEGATIVE) 09/29/18 01:32 Urine Bacteria 2+ /HPF (NEGATIVE) 09/29/18 01:32 Ur Culture Indicated? Yes/culture set up 09/29/18 01:32 - Plan (1) Bilateral lower leg cellulitis Status: Acute Plan: CIPRO 400MG IV DAILY, WOUND CARE, CONTINUE TO MONITOR (2) Urinary tract infection Status: Acute Qualifiers: Urinary tract infection type: acute cystitis Hematuria presence: without he maturia Qualified Code(s): N30.00 - Acute cystitis without hematuria Plan: NS AT 80ML/HR, CIPRO 400MG IV DAILY, CONTINUE TO MONITOR (3) Prerenal azotemia Status: Acute Plan: NORMAL SALINE AT 80ML/HR, CONTINUE TO MONITOR (4) Hypoalbuminemia Status: Acute Plan: ALBUMIN 25% IV DAILY
[2018-10-03 08:50] LABS: CREATININE 1.2 mg/dL (0.55-1.02); VANCOMYCIN,TROUGH 13.2 ug/mL (15-20)
[2018-10-03] MEDS: ALBUMIN HUMAN 25%- 100 ML 100 ML IV SCH (09:40)
[2018-10-03] MEDS: ASPIRIN EC 81 MG PO SCH (09:41)
[2018-10-03] MEDS: VANCOMYCIN HCL 500 MG VIAL 500 MG in NS 100 ML IV 100 ML IV SCH (09:41)
[2018-10-03] MEDS: EFFEXOR XR 75 MG CAP PO SCH (09:42)
[2018-10-03] MEDS: VITAMIN D3 PO SCH (09:42)
[2018-10-03] MEDS: COREG TAB 3.125 MG PO SCH (09:42)
[2018-10-03] MEDS: MILK OF MAGNESIA PO SCH (09:43)
[2018-10-03] MEDS: BACTROBAN CREAM TOP SCH (09:43)
[2018-10-03] MEDS: ZANTAC PO SCH (09:43)
[2018-10-03] MEDS: BUTT CREAM (COMPOUND) TOP SCH (09:44)
[2018-10-03] MEDS: NYSTATIN POWDER TOP SCH (09:44)
[2018-10-03] MEDS: PLAVIX PO SCH (09:49)
[2018-10-03] MEDS: LOVENOX INJ 30 MG SYR SC SCH (09:49)
[2018-10-03 12:48] VITALS: BP 186/79
== END 2018-10-03 15:45 | DRG 690 ==
LOC: MED/SURG 22:38 → ER 22:38 → OBSVTOIN 09-29 02:00 → MED/SURG 09-29 02:50
PROVIDERS: ADMIT Obstetrics & Gynecology Obstetrics; ATTEND Internal Medicine
DX: B95.62 Methicillin resistant Staphylococcus aureus infection as the cause of diseases classified elsewhere; L03.113 Cellulitis of right upper limb; E11.65 Type 2 diabetes mellitus with hyperglycemia; L89.512 Pressure ulcer of right ankle, stage 2; I25.10 Atherosclerotic heart disease of native coronary artery without angina pectoris; L03.116 Cellulitis of left lower limb; M79.10 Myalgia, unspecified site; B95.2 Enterococcus as the cause of diseases classified elsewhere; R79.82 Elevated C-reactive protein (CRP); E88.09 Other disorders of plasma-protein metabolism, not elsewhere classified; R41.82 Altered mental status, unspecified; R25.2 Cramp and spasm; R79.89 Other specified abnormal findings of blood chemistry; L03.115 Cellulitis of right lower limb; R94.4 Abnormal results of kidney function studies; R26.89 Other abnormalities of gait and mobility; M54.89 Other dorsalgia; K21.9 Gastro-esophageal reflux disease without esophagitis; N30.00 Acute cystitis without hematuria
CPT/HCPCS: 36415; 51702; 71010; 71045; 80053; 80202; 81001; 82550; 82553; 82565; 83036; 83735; 84484; 85025; 86140; 87040; 87070; 87075; 87077; 87086; 87088; 87186; 87205; 93005; 93925; 94760; 96365; 96367; 96374; 96375; 97110; 97161; 97166; 97530; 99283; 99284; A4216; A4222; B5200; P9047; J0744; J1650; J1815; J1885; J2270; J3370; J3475; J3490; J7030; J7050; S0181

== ENCOUNTER 2018-10-24 12:03 | Observation (INO) ==
[2018-10-24] MEDS ORDERED: TYLENOL 325 MG TAB PO PRN (14:18)
[2018-10-24] MEDS ORDERED: NS 500 ML IV 500 ML IV ONE (14:18)
[2018-10-24 14:46] VITALS: BMI 32.8
[2018-10-24] MEDS: NS 1000 ML 1,000 ML IV SCH (15:52)
[2018-10-24] MEDS ORDERED: CHLORASEPTIC SPRAY MT PRN (16:56)
[2018-10-24] MEDS ORDERED: HumuLIN R SUBCUT PRN (21:30)
[2018-10-24] MEDS ORDERED: NS 250 ML IV 250 ML IV ONE (21:51)
[2018-10-25] MEDS: NS 1000 ML 1,000 ML IV SCH (05:05)
[2018-10-25 05:18] LABS: BASOPHILS # (AUTO) 0.1 X10^3/uL (0.0-0.1); EOSINOPHILS # (AUTO) 0.4 x10^3/uL (0.0-0.2); EOSINOPHILS % (AUTO) 5.8 % (0.9-2.9); HEMATOCRIT 30.1 % (36.0-47.0); LYMPHOCYTES # (AUTO) 1.1 X10^3/uL (1.3-2.9); LYMPHOCYTES % (AUTO) 15.5 % (21.0-51.0); MEAN CORPUSCULAR HGB CONC 34.1 g/dL (33.0-35.0); MEAN CORPUSCULAR VOLUME 93.8 fL (80.0-100.0); MEAN PLATELET VOLUME 7.6 fL (7.4-11.0); MONOCYTES # (AUTO) 0.8 x10^3/uL (0.3-0.8); NEUTROPHILS # (AUTO) 4.6 x10^3/uL (2.2-4.8); NEUTROPHILS % (AUTO) 65.7 % (42.0-75.0); PLATELET COUNT 213 X10^3/uL (150.0-450.0); RED BLOOD COUNT 3.21 X10^6/uL (3.5-5.4); RED CELL DISTRIBUTION WIDTH 16.7 % (11.6-16.5)
[2018-10-25 05:41] LABS: HEMOGLOBIN 10.3 g/dL (12.0-16.0)
[2018-10-25 07:19] LABS: ALBUMIN 2.7 g/dL (3.4-5.0); CALCIUM 8.3 mg/dL (8.5-10.1); CARBON DIOXIDE 25.7 mmol/L (21-32); COR CA(FOR HYPOALB) 9.3 mg/dL (8.5-10.1); CREATININE 1.37 mg/dL (0.55-1.02); TOTAL PROTEIN 6.2 g/dL (6.4-8.2)
[2018-10-25] MEDS ORDERED: NORCO 10/325 TAB PO PRN (08:18)
[2018-10-25] MEDS ORDERED: VITAMIN D3 PO SCH (09:00)
[2018-10-25] MEDS ORDERED: EFFEXOR XR 75 MG CAP PO SCH (09:00)
[2018-10-25] MEDS ORDERED: HEMOCYTE-PLUS PO SCH (09:00)
[2018-10-25] MEDS ORDERED: BUTT CREAM (COMPOUND) TOP SCH (09:00)
[2018-10-25] MEDS ORDERED: PLAVIX PO SCH (09:00)
[2018-10-25] MEDS ORDERED: ZANTAC PO SCH (09:00)
[2018-10-25] MEDS ORDERED: LEVEMIR SC SCH (09:00)
[2018-10-25] MEDS ORDERED: COREG TAB 3.125 MG PO SCH (09:00)
[2018-10-25] MEDS ORDERED: ASPIRIN EC 81 MG PO SCH (09:00)
[2018-10-25 12:03] VITALS: BP 162/71
[2018-10-25] MEDS ORDERED: NEURONTIN CAP 300 MG PO SCH (14:00)
[2018-10-25] MEDS ORDERED: SNACK - Diabetic Appropriate PO SCH ×2 (20:00)
[2018-10-25] MEDS ORDERED: ZOCOR TAB 40 MG PO SCH (21:00)
[2018-10-25] MEDS ORDERED: GENTAMICIN TOPICAL OINT TOP SCH (21:00)
[2018-10-25] MEDS ORDERED: COLACE CAP 100 MG PO SCH (21:00)
== END 2018-10-25 14:00 ==
LOC: MED/SURG
PROVIDERS: ADMIT Internal Medicine; ATTEND Internal Medicine
DX: R26.89 Other abnormalities of gait and mobility; D64.89 Other specified anemias; R94.4 Abnormal results of kidney function studies; E11.65 Type 2 diabetes mellitus with hyperglycemia
CPT/HCPCS: 36415; 36430; 80053; 85025; 86850; 86900; 86901; 86922; 94760; 96367; 96372; 97162; A4216; A4222; P9016; G0378; J1815; J3490; J7030

== ENCOUNTER 2019-04-25 18:13 | Inpatient (IN) ==
[2019-04-25] MEDS ORDERED: PHARMACY CONSULT - VANCOMYCIN XX SCH (20:09)
[2019-04-25 20:37] LABS: BASOPHILS # (AUTO) 0.1 X10^3/uL (0.0-0.1); EOSINOPHILS # (AUTO) 0.4 x10^3/uL (0.0-0.2); EOSINOPHILS % (AUTO) 4.2 % (0.9-2.9); HEMATOCRIT 32.5 % (36.0-47.0); HEMOGLOBIN 10.9 g/dL (12.0-16.0); LYMPHOCYTES % (AUTO) 22.1 % (21.0-51.0); MEAN CORPUSCULAR HEMOGLOBIN 33.3 pg (27.0-34.0); MEAN CORPUSCULAR HGB CONC 33.6 g/dL (33.0-35.0); MEAN PLATELET VOLUME 7.2 fL (7.4-11.0); MONOCYTES % (AUTO) 10.7 % (0.0-13.0); NEUTROPHILS # (AUTO) 5.5 x10^3/uL (2.2-4.8); PLATELET COUNT 234 X10^3/uL (150.0-450.0); RED BLOOD COUNT 3.28 X10^6/uL (3.5-5.4); RED CELL DISTRIBUTION WIDTH 14.2 % (11.6-16.5); WHITE BLOOD COUNT 8.9 X10^3/uL (3.6-10.0)
[2019-04-25 20:54] LABS: ALBUMIN 3.3 g/dL (3.4-5.0); CALCIUM 8.1 mg/dL (8.5-10.1); CARBON DIOXIDE 18.2 mmol/L (21-32); COR CA(FOR HYPOALB) 8.7 mg/dL (8.5-10.1); CREATININE 2.61 mg/dL (0.55-1.02); TOTAL PROTEIN 7.1 g/dL (6.4-8.2)
[2019-04-25] MEDS ORDERED: VANCOMYCIN HCL 1 GM VIAL 1 G in D5W 250 ML IV 250 ML IV ONE (21:00)
[2019-04-25] MEDS: NS 1000 ML 1,000 ML IV SCH (22:50)
[2019-04-25] MEDS: GENTAMICIN TOPICAL CRM TOP SCH (22:54)
[2019-04-25] MEDS: SNACK - Diabetic Appropriate PO SCH (22:55)
[2019-04-25] MEDS: HumuLIN R SUBCUT PRN (22:57)
[2019-04-25] MEDS ORDERED: D50W ABBOJECT SYR IV ONE (23:49)
[2019-04-25] MEDS ORDERED: LASIX IVP ONE ×2 (23:49→23:54)
[2019-04-25] MEDS ORDERED: HumuLIN R IV ONE (23:52)
[2019-04-25] MEDS ORDERED: D50W ABBOJECT SYR ONE (23:54)
[2019-04-26] MEDS ORDERED: BUTT CREAM (COMPOUND) TOP PRN (01:00)
[2019-04-26] MEDS ORDERED: BUTT CREAM (COMPOUND) ONE (01:15)
[2019-04-26] MEDS ORDERED: NORCO 10/325 TAB ONE (01:15)
[2019-04-26] MEDS: NORCO 10/325 TAB PO PRN ×2 (01:23→18:47)
[2019-04-26 05:26] LABS: BASOPHILS # (AUTO) 0.1 X10^3/uL (0.0-0.1); BASOPHILS % (AUTO) 0.6 % (0.2-1.0); EOSINOPHILS # (AUTO) 0.3 x10^3/uL (0.0-0.2); EOSINOPHILS % (AUTO) 3.4 % (0.9-2.9); HEMATOCRIT 30.2 % (36.0-47.0); HEMOGLOBIN 10.3 g/dL (12.0-16.0); LYMPHOCYTES # (AUTO) 0.7 X10^3/uL (1.3-2.9); LYMPHOCYTES % (AUTO) 7.2 % (21.0-51.0); MEAN CORPUSCULAR HEMOGLOBIN 33.5 pg (27.0-34.0); MEAN CORPUSCULAR HGB CONC 34.3 g/dL (33.0-35.0); MEAN CORPUSCULAR VOLUME 97.8 fL (80.0-100.0); MEAN PLATELET VOLUME 7.7 fL (7.4-11.0); NEUTROPHILS # (AUTO) 7.6 x10^3/uL (2.2-4.8); NEUTROPHILS % (AUTO) 78.8 % (42.0-75.0); PLATELET COUNT 212 X10^3/uL (150.0-450.0); RED BLOOD COUNT 3.09 X10^6/uL (3.5-5.4); RED CELL DISTRIBUTION WIDTH 13.9 % (11.6-16.5); WHITE BLOOD COUNT 9.6 X10^3/uL (3.6-10.0)
[2019-04-26 05:36] LABS: ALBUMIN 2.9 g/dL (3.4-5.0); CARBON DIOXIDE 18.8 mmol/L (21-32); COR CA(FOR HYPOALB) 8.9 mg/dL (8.5-10.1); CREATININE 2.39 mg/dL (0.55-1.02); TOTAL PROTEIN 6.3 g/dL (6.4-8.2)
[2019-04-26] MEDS ORDERED: PHARMACY CONSULT - DOSE _____ XX SCH (09:00)
[2019-04-26] MEDS: GENTAMICIN TOPICAL CRM TOP SCH ×2 (09:17→21:44)
[2019-04-26] MEDS: VANCOMYCIN HCL 1 GM VIAL 1 G in NS 250 ML IV 250 ML IV SCH (09:40)
[2019-04-26] MEDS: NS 1000 ML 1,000 ML IV SCH ×2 (12:34→23:51)
[2019-04-26] MEDS: LOVENOX INJ 30 MG SYR SC SCH (13:45)
--- NOTE | 2019-04-26 14:12 | US ---
History: Abnormal renal function Study: Ultrasound of the kidneys Findings: The right kidney measures 9.32 x 4.57 x 5.27 cm with cortical thickness of 1.47 cm. No right hydronephrosis. The left kidney measures 9.53 x 4.6 x 4.9 cm with cortical thickness of 1.65 cm. There is no left hydronephrosis. There is normal echogenicity of renal cortex. The urinary bladder is distended with a calculated volume of 984 mL. Impression: 1. Unremarkable ultrasound of the kidneys 2. Distended urinary bladder Reported By:
[2019-04-26 15:29] VITALS: BMI 30.9
[2019-04-26] MEDS ORDERED: PATIENT'S HOME MEDICATION (Sennosides-Docusate Sodium [Senna-S] 2 TAB) PO PRN (18:44)
[2019-04-26] MEDS: SNACK - Diabetic Appropriate PO SCH (19:56)
[2019-04-26] MEDS ORDERED: SNACK - Diabetic Appropriate PO SCH (20:00)
[2019-04-26] MEDS: ZOCOR TAB 40 MG PO SCH (21:42)
[2019-04-26] MEDS: NEURONTIN CAP 400 MG PO SCH (21:42)
[2019-04-26] MEDS: VITAMIN C PO SCH (21:42)
[2019-04-26] MEDS: COLACE CAP 100 MG PO SCH (21:42)
[2019-04-26] MEDS: COREG TAB 3.125 MG PO SCH (21:42)
[2019-04-26] MEDS: LEVEMIR SC SCH (21:43)
[2019-04-26] MEDS: QUESTRAN POWDER FOR ORAL SUSP PO SCH (23:54)
[2019-04-27] MEDS: NORCO 10/325 TAB PO PRN ×3 (01:14→15:52)
[2019-04-27] MEDS: NS 1000 ML 1,000 ML IV SCH ×3 (03:49→22:31)
[2019-04-27 05:17] LABS: BASOPHILS % (AUTO) 0.8 % (0.2-1.0); EOSINOPHILS # (AUTO) 0.4 x10^3/uL (0.0-0.2); EOSINOPHILS % (AUTO) 8.4 % (0.9-2.9); HEMATOCRIT 30.5 % (36.0-47.0); HEMOGLOBIN 10.3 g/dL (12.0-16.0); LYMPHOCYTES # (AUTO) 0.7 X10^3/uL (1.3-2.9); LYMPHOCYTES % (AUTO) 16.4 % (21.0-51.0); MEAN CORPUSCULAR HEMOGLOBIN 33.3 pg (27.0-34.0); MEAN CORPUSCULAR HGB CONC 33.8 g/dL (33.0-35.0); MEAN CORPUSCULAR VOLUME 98.7 fL (80.0-100.0); MEAN PLATELET VOLUME 7.3 fL (7.4-11.0); MONOCYTES # (AUTO) 0.5 x10^3/uL (0.3-0.8); MONOCYTES % (AUTO) 10.2 % (0.0-13.0); NEUTROPHILS # (AUTO) 2.9 x10^3/uL (2.2-4.8); NEUTROPHILS % (AUTO) 64.2 % (42.0-75.0); PLATELET COUNT 205 X10^3/uL (150.0-450.0); RED BLOOD COUNT 3.09 X10^6/uL (3.5-5.4); WHITE BLOOD COUNT 4.5 X10^3/uL (3.6-10.0)
[2019-04-27 05:34] LABS: CARBON DIOXIDE 20.5 mmol/L (21-32); CREATININE 1.87 mg/dL (0.55-1.02)
[2019-04-27 05:35] LABS: ALBUMIN 2.7 g/dL (3.4-5.0); MAGNESIUM 1.8 mg/dL (1.7-2.9); TOTAL PROTEIN 6.1 g/dL (6.4-8.2)
[2019-04-27] MEDS: LOVENOX INJ 30 MG SYR SC SCH (08:13)
[2019-04-27] MEDS: NEURONTIN CAP 400 MG PO SCH ×2 (08:13→21:06)
[2019-04-27] MEDS: VANCOMYCIN HCL 1 GM VIAL 1 G in NS 250 ML IV 250 ML IV SCH (08:13)
[2019-04-27] MEDS: ZANTAC PO SCH (08:14)
[2019-04-27] MEDS: PROTONIX TAB 40 MG PO SCH (08:14)
[2019-04-27] MEDS: VITAMIN C PO SCH ×2 (08:14→21:06)
[2019-04-27] MEDS: BENADRYL CAP/TAB 25 MG PO SCH (08:14)
[2019-04-27] MEDS: EFFEXOR XR 75 MG CAP PO SCH (08:14)
[2019-04-27] MEDS: VITAMIN D3 PO SCH (08:14)
[2019-04-27] MEDS: GENTAMICIN TOPICAL CRM TOP SCH ×2 (08:18→21:07)
[2019-04-27] MEDS: LEVEMIR SC SCH ×2 (08:19→21:07)
[2019-04-27] MEDS: QUESTRAN POWDER FOR ORAL SUSP PO SCH (08:28)
[2019-04-27] MEDS: ZINC SULFATE PO SCH (08:29)
[2019-04-27] MEDS: HEMOCYTE-PLUS PO SCH (08:32)
[2019-04-27] MEDS: SENOKOT PO SCH ×2 (08:32→21:06)
[2019-04-27] MEDS: TAB-A-VITE PO SCH (08:32)
[2019-04-27] MEDS: COREG TAB 3.125 MG PO SCH ×2 (08:32→21:06)
--- NOTE | 2019-04-27 19:15 | DR.H&P ---
H&P - History & Physical for Day of: H&P Date: 04/25/19 - Chief Complaint Chief Complaint: RIGHT THIGH WOUND, MRSA - History of Present Illness History of Present Illness: IS A 84 YEAR OLD PATIENT OF OURS WHO IS A RESIDENT OF [facility]. SHE PRESENTED TO THE HOSPITAL A DIRECT ADMISSION DUE TO A WOUND OF UNKNOWN ORGIN TO THE RIGHT MEDIAL THIGHT. WOUND IS APPROXIMATELY TWO CENTIMETERS IN DIAMETER AND HAS PURULENT DRAINAGE. AN OUTPATIENT WOUND CULTURE WAS OBTAINED AND WAS POSITIVE FOR GROWTH OF MRSA. ON ARRIVAL TO THE HOSPITAL, VITALS WERE 97.9-58-24-99%-149/63. LABS WERE OBTAINED. ABNORMAL LAB VALUES INCLUDE THE FOLLOWING: RBC 3.28, HGB 10.9, HCT 32.5, SODIUM 133, POTASSIUM 7.3, CARBON DIOXIDE 18.2, BUN 89, CREATININE 2.61, GLUCOSE 304, CALCIUM 8.1, ALBUMIN 3.3. BLOOD CULTURES ARE PENDING. SHE WAS STARTED ON VANCOMYCIN, NORMAL SALINE AT 80ML/HR, AND GENTAMICIN CREAM. OTHERWISE, WE PLAN TO FOLLOW UP WITH AM LABS AND CONTINUE TO MONITOR. - Past Medical History Past Medical History: Coronary Artery Disease, Hypertension, Diabetes, Renal Disease, Depression, Anemia, GERD, Arthritis, CHF Additional Medical History: Cataracts, Constipation, Urinary Tract Infections - Past Surgical History Surgical History: Angioplasty/Stents, Hysterectomy, Ortho Surgery - Family History Family Medical History: Coronary Artery Disease, Hypertension - Social History Alcohol Use: None Drug Use: None - Medications Home Medications: ezetimibe [From Zetia] Allergy (Verified 04/25/19 20:45) Influenza Virus Vaccines Allergy (Verified 04/25/19 20:45) Penicillins Allergy (Verified 04/25/19 20:45) pneumococcal vaccine Allergy (Verified 04/25/19 20:45) ropinirole [From Requip] Allergy (Verified 04/25/19 20:45) CONTINUE taking the following medications ascorbic acid (vitamin C) 500 mg PO BID 04/25/19 [History] diphenhydramine HCl [Benadryl Allergy] 25 mg PO DAILY 04/25/19 [History] epoetin olga [Procrit] 10,000 unit SUBCUT WEEKLY 04/25/19 [History] gabapentin 400 mg PO DAILY 04/25/19 [History] gabapentin 800 mg PO HS 04/25/19 [History] cxbkcpfccgni-lnt-zgeu-FA-vit K [Multi-Day Plus Minerals] 1 tab PO DAILY 04/25/19 [History] pantoprazole 40 mg PO DAILY 04/25/19 [History] sennosides-docusate sodium [Senna-S] 2 tab PO BID PRN 04/25/19 [History] zinc sulfate [Zinc-220] 50 mg PO DAILY 04/25/19 [History] - Review of Systems Constitutional: Fever, Weakness Eyes: No Symptoms Reported ENT: No Symptoms Reported Respiratory: No Symptoms Reported Cardiovascular: No Symptoms Reported Gastrointestinal: No Symptoms Reported Genitourinary: No Symptoms Reported Skin: Wound (RIGHT THIGH WOUND WITH PURULENT DRAINAGE ) Neurological: Weakness - Physical Exam Vital Signs: Temperature 98.6 F Pulse Rate [Left] 77 Pulse Rate [Right] 81 Respiratory Rate 17 Blood Pressure [Left Arm] 165/70 Blood Pressure [Right Arm] 149/63 Blood Pressure 162/71 O2 Sat by Pulse Oximetry 96 Oriented: Normal Eyes: Normal Ear: Normal Nose: Normal Throat: Normal Respiratory: Diminished Throughout Cardiovascular: Normal : Normal Auscultation: Bowel Sounds: Normal Palpation: Normal Tenderness: Normal Skin: Wound (RIGHT THIGH 2CM WOUND WITH PURULENT DRAINAGE ) Musculoskeletal: Normal Psychiatric: Normal Mood Description: Calm Speech Pattern: Clear - Assessment/Plan (1) Infection of wound due to methicillin resistant Staphylococcus aureus (MRSA) Status: Acute Plan: IV FLUIDS, IV VANCOMYCIN, GENTAMICIN, CONTINUE TO MONITOR - Allergies Allergies/Adverse Reactions: Allergies Allergy/AdvReac Type Severity Reaction Status Date / Time ezetimibe [From Zetia] Allergy Verified 04/25/19 20:45 Influenza Virus Vaccines Allergy Verified 04/25/19 20:45 Penicillins Allergy Verified 04/25/19 20:45 pneumococcal vaccine Allergy Verified 04/25/19 20:45 ropinirole [From Requip] Allergy Verified 04/25/19 20:45
[2019-04-27] MEDS: SNACK - Diabetic Appropriate PO SCH (21:04)
[2019-04-27] MEDS: COLACE CAP 100 MG PO SCH (21:06)
[2019-04-27] MEDS: ZOCOR TAB 40 MG PO SCH (21:07)
--- NOTE | 2019-04-27 21:51 | PCM.PROG ---
Progress Note - Progress Note for Day of Date of Exam: 04/26/19 - Subjective Subjective: IS BEING TREATED FOR A RIGHT THIGH WOUND. CULTURES WERE POSTIVE FOR GROWTH OF MRSA. TODAY, SHE IS ALERT AND ORIENTED, LYING IN BED ON MORNING ROUNDS. SHE REPORTS COMPLAINTS OF GENERALIZED WEAKNESS THIS MORNING. ON EXAMINATION, HEART IS REGULAR IN RATE AND RHYTHM. BILATERAL LUNGS ARE NOTED WITH DIMINISHED LUNG SOUNDS THROUGHOUT. ABDOMEN IS ROUND, SOFT, AND NON-TENDER WITH NORMAL BOWEL SOUNDS NOTED IN ALL QUADRANTS. THERE IS A DRESSING NOTED TO WOUND ON RIGHT THIGH. DRESSING IS DRY AND INTACT. HER VITALS THIS MORNING ARE: 98.8-80-18-97%-112/57. LABS WERE OBTAINED. ABNORMAL LAB VALUES INCLUDE THE FOLLOWING: RBC 3.09, HGB 10.3, HCT 30.2, POTASSIUM 6.7, CARBON DIOXIDE 18.8, BUN 85, CREATININE 2.39, GLUCOSE 119, CALCIUM 8.0, TOTAL PROTEIN 6.3, ALBUMIN 2.9. BLOOD CULTURES ARE PENDING. SHE IS CURRENTLY RECEIVING IV FLUIDS, IV VANCOMYCIN, AND HUMULIN R SLIDING SCALE. WE WILL CONTINUE HOME MEDS TODAY AND OBTAIN A RENAL ULTRASOUND AND ECHO TODAY DUE TO ABNORMAL KIDNEY FUNCTION. OTHERWISE, WE WILL CONTINUE WITH CURRENT PLAN OF CARE TODAY. WE WILL FOLLOW UP WITH AM LABS AND CONTINUE TO MONITOR. - Past Medical Family Social History Past Med/Fam/Surg Hx: No changes since H&P Allergies: Allergies ezetimibe [From Zetia] Allergy (Verified 04/25/19 20:45) Influenza Virus Vaccines Allergy (Verified 04/25/19 20:45) Penicillins Allergy (Verified 04/25/19 20:45) pneumococcal vaccine Allergy (Verified 04/25/19 20:45) ropinirole [From Requip] Allergy (Verified 04/25/19 20:45) - Review of Systems ROS: No change since H&P - Vital Signs and I&O's Vital Signs: Temperature 98.4 F Pulse Rate [Left] 71 Pulse Rate [Right] 81 Respiratory Rate 18 Blood Pressure [Left Arm] 142/63 Blood Pressure [Right Arm] 149/63 Blood Pressure 162/71 O2 Sat by Pulse Oximetry 95 Intake and Output: Intake & Output 04/25/19 04/26/19 04/27/19 04/28/19 11:59 11:59 11:59 11:59 Intake Total 860 / 860 2546 / 2546 1081 / 1081 Output Total 0 / 0 Balance 860 / 860 2546 / 2546 1081 / 1081 - Physical Exam Oriented: Normal Eyes: Normal Ear: Normal Nose: Normal Throat: Normal Respiratory: Diminished Cardiovascular: Normal : Normal Auscultation: Bowel Sounds: Normal Palpation: Normal Tenderness: Normal Skin: Wound (RIGHT THIGH 2CM WOUND WITH PURULENT DRAINAGE ) Musculoskeletal: Normal Psychiatric: Normal Mood Description: Calm Speech Pattern: Clear - Laboratory and Diagnostics Result Diagrams: 04/27/19 04:53 04/27/19 04:53 Labs: 04/25/19 20:28 Blood Blood Culture - Preliminary 04/25/19 20:25 Blood Blood Culture - Preliminary Laboratory WBC 4.5 X10^3/uL (3.6-10.0) 04/27/19 04:53 RBC 3.09 X10^6/uL (3.5-5.4) L 04/27/19 04:53 Hgb 10.3 g/dL (12.0-16.0) L 04/27/19 04:53 Hct 30.5 % (36.0-47.0) L 04/27/19 04:53 MCV 98.7 fL (80.0-100.0) 04/27/19 04:53 MCH 33.3 pg (27.0-34.0) 04/27/19 04:53 MCHC 33.8 g/dL (33.0-35.0) 04/27/19 04:53 RDW 14.0 % (11.6-16.5) 04/27/19 04:53 Plt Count 205 X10^3/uL (150.0-450.0) 04/27/19 04:53 MPV 7.3 fL (7.4-11.0) L 04/27/19 04:53 Neut % (Auto) 64.2 % (42.0-75.0) 04/27/19 04:53 Lymph % (Auto) 16.4 % (21.0-51.0) L 04/27/19 04:53 [place] % (Auto) 10.2 % (0.0-13.0) 04/27/19 04:53 Eos % (Auto) 8.4 % (0.9-2.9) H 04/27/19 04:53 Baso % (Auto) 0.8 % (0.2-1.0) 04/27/19 04:53 Neut # (Auto) 2.9 x10^3/uL (2.2-4.8) 04/27/19 04:53 Lymph # (Auto) 0.7 X10^3/uL (1.3-2.9) L 04/27/19 04:53 [place] # (Auto) 0.5 x10^3/uL (0.3-0.8) 04/27/19 04:53 Eos # (Auto) 0.4 x10^3/uL (0.0-0.2) H 04/27/19 04:53 Baso # (Auto) 0.0 X10^3/uL (0.0-0.1) 04/27/19 04:53 Absolute Nucleated RBC 0.1 /100WBC 04/27/19 04:53 Sodium 141 mmol/L (136-145) 04/27/19 04:53 Corrected Sodium 142 mmol/L (136-145) 04/27/19 04:53 Potassium 5.7 mmol/L (3.5-5.1) H 04/27/19 04:53 Chloride 111 mmol/L (98-107) H 04/27/19 04:53 Carbon Dioxide 20.5 mmol/L (21-32) L 04/27/19 04:53 BUN 64 mg/dL (7-18) H 04/27/19 04:53 Creatinine 1.87 mg/dL (0.55-1.02) H 04/27/19 04:53 Est GFR (MDRD) Af Amer 33 (>60) L 04/27/19 04:53 Est GFR (MDRD) Non-Af 27 (>60) L 04/27/19 04:53 Glucose 134 mg/dL (65-99) H 04/27/19 04:53 Calcium 8.0 mg/dL (8.5-10.1) L 04/27/19 04:53 Corrected Calcium 9.0 mg/dL (8.5-10.1) 04/27/19 04:53 Magnesium 1.8 mg/dL (1.7-2.9) 04/27/19 04:53 Total Bilirubin 0.20 mg/dL (0.2-1.0) 04/27/19 04:53 AST 21 Units/L (15-37) 04/27/19 04:53 ALT 22 Units/L (12-78) 04/27/19 04:53 Alkaline Phosphatase 92 Units/L (46-116) 04/27/19 04:53 Total Protein 6.1 g/dL (6.4-8.2) L 04/27/19 04:53 Albumin 2.7 g/dL (3.4-5.0) L 04/27/19 04:53 Globulin 3.4 g/dL (2.5-4.5) 04/27/19 04:53 Albumin/Globulin Ratio 0.8 Ratio (1.1-2.1) L 04/27/19 04:53 - Plan (1) Infection of wound due to methicillin resistant Staphylococcus aureus (MRSA) Status: Acute Plan: IV FLUIDS, IV VANCOMYCIN, GENTAMICIN, CONTINUE TO MONITOR (2) Renal failure Status: Acute Qualifiers: Renal failure chronicity: acute on chronic Chronic kidney disease stage: unspecified stage Plan: OBTAIN ECHO, RENAL ULTRASOUND
[2019-04-28] MEDS: NS 1000 ML 1,000 ML IV SCH ×3 (03:48→15:29)
[2019-04-28 06:57] LABS: BASOPHILS % (AUTO) 1.2 % (0.2-1.0); EOSINOPHILS # (AUTO) 0.3 x10^3/uL (0.0-0.2); EOSINOPHILS % (AUTO) 8.5 % (0.9-2.9); HEMATOCRIT 30.2 % (36.0-47.0); HEMOGLOBIN 10.3 g/dL (12.0-16.0); LYMPHOCYTES # (AUTO) 0.6 X10^3/uL (1.3-2.9); LYMPHOCYTES % (AUTO) 14.7 % (21.0-51.0); MEAN CORPUSCULAR HEMOGLOBIN 33.3 pg (27.0-34.0); MEAN CORPUSCULAR HGB CONC 34.1 g/dL (33.0-35.0); MEAN CORPUSCULAR VOLUME 97.7 fL (80.0-100.0); MEAN PLATELET VOLUME 7.4 fL (7.4-11.0); MONOCYTES # (AUTO) 0.4 x10^3/uL (0.3-0.8); MONOCYTES % (AUTO) 10.7 % (0.0-13.0); NEUTROPHILS # (AUTO) 2.6 x10^3/uL (2.2-4.8); NEUTROPHILS % (AUTO) 64.9 % (42.0-75.0); PLATELET COUNT 220 X10^3/uL (150.0-450.0); RED BLOOD COUNT 3.09 X10^6/uL (3.5-5.4); RED CELL DISTRIBUTION WIDTH 14.1 % (11.6-16.5)
[2019-04-28 07:08] LABS: ALBUMIN 2.7 g/dL (3.4-5.0); CARBON DIOXIDE 19.8 mmol/L (21-32); CREATININE 1.55 mg/dL (0.55-1.02); TOTAL PROTEIN 6.1 g/dL (6.4-8.2)
[2019-04-28] MEDS: LEVEMIR SC SCH ×2 (10:09→21:21)
[2019-04-28] MEDS: LOVENOX INJ 30 MG SYR SC SCH (10:11)
[2019-04-28] MEDS: VITAMIN D3 PO SCH (10:12)
[2019-04-28] MEDS: SENOKOT PO SCH ×2 (10:12→21:20)
[2019-04-28] MEDS: ZANTAC PO SCH (10:12)
[2019-04-28] MEDS: NEURONTIN CAP 400 MG PO SCH ×2 (10:13→21:20)
[2019-04-28] MEDS: BENADRYL CAP/TAB 25 MG PO SCH (10:13)
[2019-04-28] MEDS: COREG TAB 3.125 MG PO SCH ×2 (10:14→21:20)
[2019-04-28] MEDS: HEMOCYTE-PLUS PO SCH (10:14)
[2019-04-28] MEDS: TAB-A-VITE PO SCH (10:14)
[2019-04-28] MEDS: EFFEXOR XR 75 MG CAP PO SCH (10:14)
[2019-04-28] MEDS: VITAMIN C PO SCH ×2 (10:14→21:20)
[2019-04-28] MEDS: PROTONIX TAB 40 MG PO SCH (10:14)
[2019-04-28] MEDS: VANCOMYCIN HCL 1 GM VIAL 1 G in NS 250 ML IV 250 ML IV SCH (10:15)
[2019-04-28] MEDS: ZINC SULFATE PO SCH (10:15)
[2019-04-28] MEDS: GENTAMICIN TOPICAL CRM TOP SCH ×2 (10:16→21:21)
[2019-04-28] MEDS: QUESTRAN POWDER FOR ORAL SUSP PO SCH (10:16)
[2019-04-28] MEDS: NORCO 10/325 TAB PO PRN ×2 (11:12→21:24)
[2019-04-28] MEDS: HumuLIN R SUBCUT PRN (12:24)
[2019-04-28] MEDS: SNACK - Diabetic Appropriate PO SCH (21:18)
[2019-04-28] MEDS: ZOCOR TAB 40 MG PO SCH (21:20)
[2019-04-28] MEDS: COLACE CAP 100 MG PO SCH (21:20)
[2019-04-28] MEDS: MILK OF MAGNESIA PO PRN (21:23)
--- NOTE | 2019-04-28 22:00 | PCM.PROG ---
Progress Note - Progress Note for Day of Date of Exam: 04/27/19 - Subjective Subjective: IS BEING TREATED FOR A RIGHT THIGH WOUND. CULTURES WERE POSTIVE FOR GROWTH OF MRSA. TODAY, SHE IS ALERT AND ORIENTED, LYING IN BED ON MORNING ROUNDS. SHE CONTINUES WITH COMPLAINTS OF GENERALIZED WEAKNESS THIS MORNING. ON EXAMINATION, HEART IS REGULAR IN RATE AND RHYTHM. BILATERAL LUNGS ARE NOTED WITH DIMINISHED LUNG SOUNDS THROUGHOUT. ABDOMEN IS ROUND, SOFT, AND NON-TENDER WITH NORMAL BOWEL SOUNDS NOTED IN ALL QUADRANTS. THERE IS A DRESSING NOTED TO WOUND ON RIGHT THIGH. DRESSING IS DRY AND INTACT. HER VITALS THIS MORNING ARE: 97.6-78-18-96%-134/82. LABS WERE OBTAINED. ABNORMAL LAB VALUES INCLUDE THE FOLLOWING: RBC 3.09, HGB 10.3, HCT 30.5, POTASSIUM 5.7, CHLORIDE 111, CARBON DIOXIDE 20.5, BUN 64, CREATININE 1.87, GLUCOSE 134, CALCIUM 8.0, TOTAL PROTEIN 6.1, ALBUMIN 2.7. BLOOD CULTURES ARE PENDING. AN ECHO WAS OBTAINED TODAY AND REVEALED AN EJECTION FRACTION OF 51%. RENAL ULTRASOUND WAS NEGATIVE. SHE IS CURRENTLY RECEIVING IV FLUIDS, IV VANCOMYCIN, AND HUMULIN R SLIDING SCALE, AND HOME MEDS WERE RESUMED. OTHERWISE, WE WILL CONTINUE WITH CURRENT PLAN OF CARE TODAY. WE WILL FOLLOW UP WITH AM LABS AND CONTINUE TO MONITOR. - Past Medical Family Social History Past Med/Fam/Surg Hx: No changes since H&P Allergies: Allergies ezetimibe [From Zetia] Allergy (Verified 04/25/19 20:45) Influenza Virus Vaccines Allergy (Verified 04/25/19 20:45) Penicillins Allergy (Verified 04/25/19 20:45) pneumococcal vaccine Allergy (Verified 04/25/19 20:45) ropinirole [From Requip] Allergy (Verified 04/25/19 20:45) - Review of Systems ROS: No change since H&P - Vital Signs and I&O's Vital Signs: Temperature 97.9 F Pulse Rate [Left] 77 Pulse Rate [Right] 81 Respiratory Rate 18 Blood Pressure [Left Arm] 168/70 Blood Pressure [Right Arm] 160/70 Blood Pressure 162/71 O2 Sat by Pulse Oximetry 98 Intake and Output: Intake & Output 04/26/19 04/27/19 04/28/19 04/29/19 11:59 11:59 11:59 11:59 Intake Total 860 / 860 2546 / 2546 2200 / 2200 Output Total 0 / 0 Balance 860 / 860 2546 / 2546 2200 - Physical Exam Oriented: Normal Eyes: Normal Ear: Normal Nose: Normal Throat: Normal Respiratory: Diminished Cardiovascular: Normal : Normal Auscultation: Bowel Sounds: Normal Tenderness: Normal Skin: Wound (RIGHT THIGH 2CM WOUND WITH PURULENT DRAINAGE ) Musculoskeletal: Normal Psychiatric: Normal Mood Description: Calm Speech Pattern: Clear, Appropriate - Laboratory and Diagnostics Result Diagrams: 04/28/19 05:10 04/28/19 05:10 Labs: 04/25/19 20:28 Blood Blood Culture - Preliminary 04/25/19 20:25 Blood Blood Culture - Preliminary Laboratory WBC 4.0 X10^3/uL (3.6-10.0) 04/28/19 05:10 RBC 3.09 X10^6/uL (3.5-5.4) L 04/28/19 05:10 Hgb 10.3 g/dL (12.0-16.0) L 04/28/19 05:10 Hct 30.2 % (36.0-47.0) L 04/28/19 05:10 MCV 97.7 fL (80.0-100.0) 04/28/19 05:10 MCH 33.3 pg (27.0-34.0) 04/28/19 05:10 MCHC 34.1 g/dL (33.0-35.0) 04/28/19 05:10 RDW 14.1 % (11.6-16.5) 04/28/19 05:10 Plt Count 220 X10^3/uL (150.0-450.0) 04/28/19 05:10 MPV 7.4 fL (7.4-11.0) 04/28/19 05:10 Neut % (Auto) 64.9 % (42.0-75.0) 04/28/19 05:10 Lymph % (Auto) 14.7 % (21.0-51.0) L 04/28/19 05:10 [place] % (Auto) 10.7 % (0.0-13.0) 04/28/19 05:10 Eos % (Auto) 8.5 % (0.9-2.9) H 04/28/19 05:10 Baso % (Auto) 1.2 % (0.2-1.0) H 04/28/19 05:10 Neut # (Auto) 2.6 x10^3/uL (2.2-4.8) 04/28/19 05:10 Lymph # (Auto) 0.6 X10^3/uL (1.3-2.9) L 04/28/19 05:10 [place] # (Auto) 0.4 x10^3/uL (0.3-0.8) 04/28/19 05:10 Eos # (Auto) 0.3 x10^3/uL (0.0-0.2) H 04/28/19 05:10 Baso # (Auto) 0.0 X10^3/uL (0.0-0.1) 04/28/19 05:10 Absolute Nucleated RBC 0.1 /100WBC 04/28/19 05:10 Sodium 140 mmol/L (136-145) 04/28/19 05:10 Corrected Sodium 141 mmol/L (136-145) 04/28/19 05:10 Potassium 5.3 mmol/L (3.5-5.1) H 04/28/19 05:10 Chloride 110 mmol/L (98-107) H 04/28/19 05:10 Carbon Dioxide 19.8 mmol/L (21-32) L 04/28/19 05:10 BUN 46 mg/dL (7-18) H 04/28/19 05:10 Creatinine 1.55 mg/dL (0.55-1.02) H 04/28/19 05:10 Est GFR (MDRD) Af Amer 41 (>60) L 04/28/19 05:10 Est GFR (MDRD) Non-Af 34 (>60) L 04/28/19 05:10 Glucose 161 mg/dL (65-99) H 04/28/19 05:10 Calcium 8.0 mg/dL (8.5-10.1) L 04/28/19 05:10 Corrected Calcium 9.0 mg/dL (8.5-10.1) 04/28/19 05:10 Magnesium 1.8 mg/dL (1.7-2.9) 04/27/19 04:53 Total Bilirubin 0.20 mg/dL (0.2-1.0) 04/28/19 05:10 AST 20 Units/L (15-37) 04/28/19 05:10 ALT 22 Units/L (12-78) 04/28/19 05:10 Alkaline Phosphatase 86 Units/L (46-116) 04/28/19 05:10 Total Protein 6.1 g/dL (6.4-8.2) L 04/28/19 05:10 Albumin 2.7 g/dL (3.4-5.0) L 04/28/19 05:10 Globulin 3.4 g/dL (2.5-4.5) 04/28/19 05:10 Albumin/Globulin Ratio 0.8 Ratio (1.1-2.1) L 04/28/19 05:10 - Plan (1) Infection of wound due to methicillin resistant Staphylococcus aureus (MRSA) Status: Acute Plan: IV FLUIDS, IV VANCOMYCIN, GENTAMICIN, CONTINUE TO MONITOR (2) Renal failure Status: Acute Qualifiers: Renal failure chronicity: acute on chronic Chronic kidney disease stage: unspecified stage Plan: OBTAIN ECHO, RENAL ULTRASOUND
[2019-04-29] MEDS: NS 1000 ML 1,000 ML IV SCH ×3 (04:26→16:58)
[2019-04-29 05:33] LABS: BASOPHILS % (AUTO) 1.2 % (0.2-1.0); EOSINOPHILS # (AUTO) 0.3 x10^3/uL (0.0-0.2); EOSINOPHILS % (AUTO) 8.2 % (0.9-2.9); HEMATOCRIT 28.8 % (36.0-47.0); HEMOGLOBIN 9.8 g/dL (12.0-16.0); LYMPHOCYTES # (AUTO) 0.8 X10^3/uL (1.3-2.9); LYMPHOCYTES % (AUTO) 21.8 % (21.0-51.0); MEAN CORPUSCULAR HEMOGLOBIN 33.5 pg (27.0-34.0); MEAN CORPUSCULAR HGB CONC 33.9 g/dL (33.0-35.0); MEAN CORPUSCULAR VOLUME 98.6 fL (80.0-100.0); MEAN PLATELET VOLUME 7.5 fL (7.4-11.0); MONOCYTES # (AUTO) 0.5 x10^3/uL (0.3-0.8); MONOCYTES % (AUTO) 13.9 % (0.0-13.0); NEUTROPHILS # (AUTO) 1.9 x10^3/uL (2.2-4.8); NEUTROPHILS % (AUTO) 54.9 % (42.0-75.0); PLATELET COUNT 197 X10^3/uL (150.0-450.0); RED BLOOD COUNT 2.92 X10^6/uL (3.5-5.4); RED CELL DISTRIBUTION WIDTH 13.8 % (11.6-16.5); WHITE BLOOD COUNT 3.5 X10^3/uL (3.6-10.0)
[2019-04-29 05:58] LABS: ALBUMIN 2.5 g/dL (3.4-5.0); CALCIUM 7.9 mg/dL (8.5-10.1); CARBON DIOXIDE 21.9 mmol/L (21-32); COR CA(FOR HYPOALB) 9.1 mg/dL (8.5-10.1); CREATININE 1.43 mg/dL (0.55-1.02); TOTAL PROTEIN 5.7 g/dL (6.4-8.2)
[2019-04-29] MEDS ORDERED: PHARMACY COMMENT IV NR (08:30)
[2019-04-29 09:19] LABS: CREATININE 1.38 mg/dL (0.55-1.02)
[2019-04-29 09:28] LABS: VANCOMYCIN,TROUGH 21.5 ug/mL (15-20)
[2019-04-29] MEDS: NORCO 10/325 TAB PO PRN ×2 (09:48→21:41)
[2019-04-29] MEDS: SENOKOT PO SCH ×2 (09:50→21:33)
[2019-04-29] MEDS: MILK OF MAGNESIA PO PRN (09:50)
[2019-04-29] MEDS: VITAMIN C PO SCH ×2 (09:50→21:34)
[2019-04-29] MEDS: NEURONTIN CAP 400 MG PO SCH ×2 (09:50→21:34)
[2019-04-29] MEDS: QUESTRAN POWDER FOR ORAL SUSP PO SCH (09:50)
[2019-04-29] MEDS: PROTONIX TAB 40 MG PO SCH (09:50)
[2019-04-29] MEDS: ZANTAC PO SCH (09:50)
[2019-04-29] MEDS: TAB-A-VITE PO SCH (09:51)
[2019-04-29] MEDS: EFFEXOR XR 75 MG CAP PO SCH (09:51)
[2019-04-29] MEDS: LOVENOX INJ 30 MG SYR SC SCH (09:51)
[2019-04-29] MEDS: COREG TAB 3.125 MG PO SCH ×2 (09:51→21:33)
[2019-04-29] MEDS: HEMOCYTE-PLUS PO SCH (09:51)
[2019-04-29] MEDS: BENADRYL CAP/TAB 25 MG PO SCH (09:51)
[2019-04-29] MEDS: LEVEMIR SC SCH ×2 (09:52→21:34)
[2019-04-29] MEDS: GENTAMICIN TOPICAL CRM TOP SCH ×2 (09:53→21:36)
[2019-04-29] MEDS: ZINC SULFATE PO SCH (09:54)
[2019-04-29] MEDS: VITAMIN D3 PO SCH (09:54)
[2019-04-29] MEDS: VANCOMYCIN HCL 1 GM VIAL 1 G in NS 250 ML IV 250 ML IV SCH (13:41)
[2019-04-29] MEDS: ZOCOR TAB 40 MG PO SCH (21:34)
[2019-04-29] MEDS: COLACE CAP 100 MG PO SCH (21:34)
[2019-04-29] MEDS: HumuLIN R SUBCUT PRN (21:35)
[2019-04-29] MEDS: SNACK - Diabetic Appropriate PO SCH (21:37)
--- NOTE | 2019-04-29 21:45 | PCM.PROG ---
Progress Note - Progress Note for Day of Date of Exam: 04/28/19 - Subjective Subjective: IS BEING TREATED FOR A RIGHT THIGH WOUND. CULTURES WERE POSTIVE FOR GROWTH OF MRSA. TODAY, SHE IS ALERT AND ORIENTED, LYING IN BED ON MORNING ROUNDS. SHE CONTINUES WITH COMPLAINTS OF GENERALIZED WEAKNESS THIS MORNING. ON EXAMINATION, HEART IS REGULAR IN RATE AND RHYTHM. BILATERAL LUNGS ARE NOTED WITH DIMINISHED LUNG SOUNDS THROUGHOUT. ABDOMEN IS ROUND, SOFT, AND NON-TENDER WITH NORMAL BOWEL SOUNDS NOTED IN ALL QUADRANTS. THERE IS A DRESSING NOTED TO WOUND ON RIGHT THIGH. DRESSING IS DRY AND INTACT. STAFF REPORTS THAT THERE CONTINUES TO BE PURULENT DRAINAGE FROM WOUND. HER VITALS THIS MORNING ARE: 99.1-84-18-96%-126/56. LABS WERE OBTAINED. ABNORMAL LAB VALUES INCLUDE THE FOLL OWING: RBC 3.09, HGB 10.3, HCT 30.3, POTASSIUM 5.3, CHLORIDE 110, CARBON DIOXIDE 19.8, BUN 46, CREATININE 1.43, GLUCOSE 155, CALCIUM 7.9, TOTAL PROTEIN 5.7, ALBUMIN 2.5. BLOOD CULTURES ARE PENDING. SHE IS CURRENTLY RECEIVING IV FLUIDS, IV VANCOMYCIN, AND HUMULIN R SLIDING SCALE, AND HOME MEDS WERE RESUMED. WE WILL CONTINUE WITH CURRENT PLAN OF CARE TODAY. OTHERWISE, WE WILL FOLLOW UP WITH AM LABS AND CONTINUE TO MONITOR. - Past Medical Family Social History Past Med/Fam/Surg Hx: No changes since H&P Allergies: Allergies ezetimibe [From Zetia] Allergy (Verified 04/25/19 20:45) Influenza Virus Vaccines Allergy (Verified 04/25/19 20:45) Penicillins Allergy (Verified 04/25/19 20:45) pneumococcal vaccine Allergy (Verified 04/25/19 20:45) ropinirole [From Requip] Allergy (Verified 04/25/19 20:45) - Review of Systems ROS: No change since H&P - Vital Signs and I&O's Vital Signs: Temperature 98.0 F Pulse Rate [Left] 82 Pulse Rate [Right] 81 Respiratory Rate 18 Blood Pressure [Left Arm] 169/67 Blood Pressure [Right Arm] 183/79 Blood Pressure 162/71 O2 Sat by Pulse Oximetry 98 Intake and Output: Intake & Output 04/27/19 04/28/19 04/29/19 04/30/19 11:59 11:59 11:59 11:59 Intake Total 2546 / 2546 2200 / 1 3215 / 3215 360 / 360 Balance 2546 / 2546 2200 / 2201 3215 / 3215 360 / 360 - Physical Exam Oriented: Normal Eyes: Normal Ear: Normal Nose: Normal Throat: Normal Respiratory: Diminished Cardiovascular: Normal : Normal Auscultation: Bowel Sounds: Normal Tenderness: Normal Skin: Wound (RIGHT THIGH 2CM WOUND WITH PURULENT DRAINAGE ) Musculoskeletal: Normal Psychiatric: Normal Mood Description: Calm Speech Pattern: Clear, Appropriate - Laboratory and Diagnostics Result Diagrams: 04/29/19 05:08 04/29/19 08:42 Labs: 04/25/19 20:28 Blood Blood Culture - Preliminary 04/25/19 20:25 Blood Blood Culture - Preliminary Laboratory WBC 3.5 X10^3/uL (3.6-10.0) L 04/29/19 05:08 RBC 2.92 X10^6/uL (3.5-5.4) L 04/29/19 05:08 Hgb 9.8 g/dL (12.0-16.0) L 04/29/19 05:08 Hct 28.8 % (36.0-47.0) L 04/29/19 05:08 MCV 98.6 fL (80.0-100.0) 04/29/19 05:08 MCH 33.5 pg (27.0-34.0) 04/29/19 05:08 MCHC 33.9 g/dL (33.0-35.0) 04/29/19 05:08 RDW 13.8 % (11.6-16.5) 04/29/19 05:08 Plt Count 197 X10^3/uL (150.0-450.0) 04/29/19 05:08 MPV 7.5 fL (7.4-11.0) 04/29/19 05:08 Neut % (Auto) 54.9 % (42.0-75.0) 04/29/19 05:08 Lymph % (Auto) 21.8 % (21.0-51.0) 04/29/19 05:08 Baker % (Auto) 13.9 % (0.0-13.0) H 04/29/19 05:08 Eos % (Auto) 8.2 % (0.9-2.9) H 04/29/19 05:08 Baso % (Auto) 1.2 % (0.2-1.0) H 04/29/19 05:08 Neut # (Auto) 1.9 x10^3/uL (2.2-4.8) L 04/29/19 05:08 Lymph # (Auto) 0.8 X10^3/uL (1.3-2.9) L 04/29/19 05:08 Baker # (Auto) 0.5 x10^3/uL (0.3-0.8) 04/29/19 05:08 Eos # (Auto) 0.3 x10^3/uL (0.0-0.2) H 04/29/19 05:08 Baso # (Auto) 0.0 X10^3/uL (0.0-0.1) 04/29/19 05:08 Absolute Nucleated RBC 0.1 /100WBC 04/29/19 05:08 Sodium 142 mmol/L (136-145) 04/29/19 05:08 Corrected Sodium 143 mmol/L (136-145) 04/29/19 05:08 Potassium 4.9 mmol/L (3.5-5.1) 04/29/19 05:08 Chloride 111 mmol/L (98-107) H 04/29/19 05:08 Carbon Dioxide 21.9 mmol/L (21-32) 04/29/19 05:08 BUN 39 mg/dL (7-18) H 04/29/19 05:08 Creatinine 1.38 mg/dL (0.55-1.02) H 04/29/19 08:42 Est GFR (MDRD) Af Amer 45 (>60) L 04/29/19 05:08 Est GFR (MDRD) Non-Af 37 (>60) L 04/29/19 05:08 Glucose 155 mg/dL (65-99) H 04/29/19 05:08 Calcium 7.9 mg/dL (8.5-10.1) L 04/29/19 05:08 Corrected Calcium 9.1 mg/dL (8.5-10.1) 04/29/19 05:08 Magnesium 1.8 mg/dL (1.7-2.9) 04/27/19 04:53 Total Bilirubin 0.20 mg/dL (0.2-1.0) 04/29/19 05:08 AST 17 Units/L (15-37) 04/29/19 05:08 ALT 18 Units/L (12-78) 04/29/19 05:08 Alkaline Phosphatase 79 Units/L (46-116) 04/29/19 05:08 Total Protein 5.7 g/dL (6.4-8.2) L 04/29/19 05:08 Albumin 2.5 g/dL (3.4-5.0) L 04/29/19 05:08 Globulin 3.2 g/dL (2.5-4.5) 04/29/19 05:08 Albumin/Globulin Ratio 0.8 Ratio (1.1-2.1) L 04/29/19 05:08 Vancomycin Trough 21.5 ug/mL (15-20) H* 04/29/19 08:42 - Plan (1) Infection of wound due to methicillin resistant Staphylococcus aureus (MRSA) Status: Acute Plan: IV FLUIDS, IV VANCOMYCIN, GENTAMICIN, CONTINUE TO MONITOR (2) Renal failure Status: Acute Qualifiers: Renal failure chronicity: acute on chronic Chronic kidney disease stage: unspecified stage Plan: OBTAIN ECHO, RENAL ULTRASOUND
[2019-04-30 05:23] LABS: BASOPHILS % (AUTO) 1.1 % (0.2-1.0); EOSINOPHILS # (AUTO) 0.3 x10^3/uL (0.0-0.2); EOSINOPHILS % (AUTO) 7.7 % (0.9-2.9); HEMATOCRIT 29.2 % (36.0-47.0); HEMOGLOBIN 9.9 g/dL (12.0-16.0); LYMPHOCYTES # (AUTO) 0.9 X10^3/uL (1.3-2.9); LYMPHOCYTES % (AUTO) 23.7 % (21.0-51.0); MEAN CORPUSCULAR HEMOGLOBIN 32.8 pg (27.0-34.0); MEAN CORPUSCULAR HGB CONC 33.7 g/dL (33.0-35.0); MEAN CORPUSCULAR VOLUME 97.3 fL (80.0-100.0); MEAN PLATELET VOLUME 7.2 fL (7.4-11.0); MONOCYTES # (AUTO) 0.5 x10^3/uL (0.3-0.8); MONOCYTES % (AUTO) 13.3 % (0.0-13.0); NEUTROPHILS # (AUTO) 2.1 x10^3/uL (2.2-4.8); NEUTROPHILS % (AUTO) 54.2 % (42.0-75.0); PLATELET COUNT 201 X10^3/uL (150.0-450.0); RED CELL DISTRIBUTION WIDTH 14.2 % (11.6-16.5); WHITE BLOOD COUNT 3.9 X10^3/uL (3.6-10.0)
[2019-04-30] MEDS: NS 1000 ML 1,000 ML IV SCH ×4 (05:25→20:19)
[2019-04-30 05:39] LABS: ALANINE AMINOTRANSFERASE 15 Units/L (12-78); ALBUMIN 2.6 g/dL (3.4-5.0); ALKALINE PHOSPHATASE 76 Units/L (46-116); ASPARTATE AMINO TRANSFERASE 22 Units/L (15-37); BLOOD UREA NITROGEN 39 mg/dL (7-18); CARBON DIOXIDE 23.2 mmol/L (21-32); CHLORIDE 111 mmol/L (98-107); COR CA(FOR HYPOALB) 9.1 mg/dL (8.5-10.1); CREATININE 1.36 mg/dL (0.55-1.02); SODIUM 143 mmol/L (136-145); TOTAL PROTEIN 5.9 g/dL (6.4-8.2); eGFR NON BLACK RACES 39 (>60)
[2019-04-30] MEDS: EFFEXOR XR 75 MG CAP PO SCH (09:04)
[2019-04-30] MEDS: BENADRYL CAP/TAB 25 MG PO SCH (09:04)
[2019-04-30] MEDS: PROTONIX TAB 40 MG PO SCH (09:05)
[2019-04-30] MEDS: HEMOCYTE-PLUS PO SCH (09:05)
[2019-04-30] MEDS: VITAMIN C PO SCH ×2 (09:05→21:36)
[2019-04-30] MEDS: ZANTAC PO SCH (09:05)
[2019-04-30] MEDS: SENOKOT PO SCH ×2 (09:05→21:37)
[2019-04-30] MEDS: COREG TAB 3.125 MG PO SCH ×2 (09:05→21:36)
[2019-04-30] MEDS: GENTAMICIN TOPICAL CRM TOP SCH ×2 (09:06→21:38)
[2019-04-30] MEDS: TAB-A-VITE PO SCH (09:06)
[2019-04-30] MEDS: ZINC SULFATE PO SCH (09:06)
[2019-04-30] MEDS: QUESTRAN POWDER FOR ORAL SUSP PO SCH (09:07)
[2019-04-30] MEDS: LEVEMIR SC SCH ×2 (09:08→21:37)
[2019-04-30] MEDS: LOVENOX INJ 30 MG SYR SC SCH (09:09)
[2019-04-30] MEDS: NORCO 10/325 TAB PO PRN ×2 (10:12→21:53)
[2019-04-30] MEDS: NEURONTIN CAP 400 MG PO SCH ×2 (10:12→21:36)
[2019-04-30] MEDS: VITAMIN D3 PO SCH (10:12)
[2019-04-30] MEDS: VANCOMYCIN HCL 500 MG VIAL 500 MG in NS 100 ML IV 100 ML IV SCH (10:15)
--- NOTE | 2019-04-30 14:30 | PCM.PROG ---
Progress Note - Progress Note for Day of Date of Exam: 04/29/19 - Subjective Subjective: IS BEING TREATED FOR A RIGHT THIGH WOUND. CULTURES WERE POSTIVE FOR GROWTH OF MRSA. TODAY, SHE IS ALERT AND ORIENTED, LYING IN BED ON MORNING ROUNDS. SHE CONTINUES WITH COMPLAINTS OF GENERALIZED WEAKNESS THIS MORNING. WOUND CONTINUES WITH PURULENT DRAINAGE. ON EXAMINATION, HEART IS REGULAR IN RATE AND RHYTHM. BILATERAL LUNGS ARE NOTED WITH DIMINISHED LUNG SOUNDS THROUGHOUT. ABDOMEN IS ROUND, SOFT, AND NON-TENDER WITH NORMAL BOWEL SOUNDS NOTED IN ALL QUADRANTS. THERE IS A DRESSING NOTED TO WOUND ON RIGHT THIGH. DRESSING IS DRY AND INTACT. HER VITALS THIS MORNING ARE: 98.0-89-18 -97%-174/71. LABS WERE OBTAINED. ABNORMAL LAB VALUES INCLUDE THE FOLLOWING: WBC 3.5, RBC 2.92, HGB 9.8, HCT 28.8, CHLORIDE 111, BUN 39, CREATININE 1.43, GLUCOSE 155, CALCIUM 7.9, TOTAL PROTEIN 5.7, ALBUMIN 2.5. BLOOD CULTURES ARE PENDING. SHE IS CURRENTLY RECEIVING IV FLUIDS, IV VANCOMYCIN, AND HUMULIN R SLIDING SCALE, AND HOME MEDS WERE RESUMED. WE WILL CONTINUE WITH CURRENT PLAN OF CARE TODAY. OTHERWISE, WE WILL FOLLOW UP WITH AM LABS AND CONTINUE TO MONITOR. - Past Medical Family Social History Past Med/Fam/Surg Hx: No changes since H&P Allergies: Allergies ezetimibe [From Zetia] Allergy (Verified 04/25/19 20:45) Influenza Virus Vaccines Allergy (Verified 04/25/19 20:45) Penicillins Allergy (Verified 04/25/19 20:45) pneumococcal vaccine Allergy (Verified 04/25/19 20:45) ropinirole [From Requip] Allergy (Verified 04/25/19 20:45) - Review of Systems ROS: No change since H&P - Vital Signs and I&O's Vital Signs: Temperature 98 F Pulse Rate [Left] 76 Pulse Rate [Right] 81 Respiratory Rate 20 Blood Pressure [Left Arm] 193/79 Blood Pressure [Right Arm] 183/79 Blood Pressure 162/71 O2 Sat by Pulse Oximetry 96 Intake and Output: Intake & Output 04/28/19 04/29/19 04/30/19 05/01/19 11:59 11:59 11:59 11:59 Intake Total 2201 / 2201 3215 / 3215 1400 / 1400 Balance 2201 / 2201 3215 / 3215 1400 / 1400 - Physical Exam Oriented: Normal Eyes: Normal Ear: Normal Nose: Normal Throat: Normal Respiratory: Diminished Cardiovascular: Normal : Normal Auscultation: Bowel Sounds: Normal Palpation: Normal Tenderness: Normal Skin: Wound (RIGHT THIGH 2CM WOUND WITH PURULENT DRAINAGE ) Musculoskeletal: Normal Psychiatric: Normal Mood Description: Calm Speech Pattern: Clear, Appropriate - Laboratory and Diagnostics Result Diagrams: 04/30/19 04:41 04/30/19 04:41 Labs: 04/25/19 20:28 Blood Blood Culture - Preliminary 04/25/19 20:25 Blood Blood Culture - Preliminary Laboratory WBC 3.9 X10^3/uL (3.6-10.0) 04/30/19 04:41 RBC 3.00 X10^6/uL (3.5-5.4) L 04/30/19 04:41 Hgb 9.9 g/dL (12.0-16.0) L 04/30/19 04:41 Hct 29.2 % (36.0-47.0) L 04/30/19 04:41 MCV 97.3 fL (80.0-100.0) 04/30/19 04:41 MCH 32.8 pg (27.0-34.0) 04/30/19 04:41 MCHC 33.7 g/dL (33.0-35.0) 04/30/19 04:41 RDW 14.2 % (11.6-16.5) 04/30/19 04:41 Plt Count 201 X10^3/uL (150.0-450.0) 04/30/19 04:41 MPV 7.2 fL (7.4-11.0) L 04/30/19 04:41 Neut % (Auto) 54.2 % (42.0-75.0) 04/30/19 04:41 Lymph % (Auto) 23.7 % (21.0-51.0) 04/30/19 04:41 Baker % (Auto) 13.3 % (0.0-13.0) H 04/30/19 04:41 Eos % (Auto) 7.7 % (0.9-2.9) H 04/30/19 04:41 Baso % (Auto) 1.1 % (0.2-1.0) H 04/30/19 04:41 Neut # (Auto) 2.1 x10^3/uL (2.2-4.8) L 04/30/19 04:41 Lymph # (Auto) 0.9 X10^3/uL (1.3-2.9) L 04/30/19 04:41 Baker # (Auto) 0.5 x10^3/uL (0.3-0.8) 04/30/19 04:41 Eos # (Auto) 0.3 x10^3/uL (0.0-0.2) H 04/30/19 04:41 Baso # (Auto) 0.0 X10^3/uL (0.0-0.1) 04/30/19 04:41 Absolute Nucleated RBC 0.2 /100WBC 04/30/19 04:41 Sodium 143 mmol/L (136-145) 04/30/19 04:41 Corrected Sodium TNP 04/30/19 04:41 Potassium 5.0 mmol/L (3.5-5.1) 04/30/19 04:41 Chloride 111 mmol/L (98-107) H 04/30/19 04:41 Carbon Dioxide 23.2 mmol/L (21-32) 04/30/19 04:41 BUN 39 mg/dL (7-18) H 04/30/19 04:41 Creatinine 1.36 mg/dL (0.55-1.02) H 04/30/19 04:41 Est GFR (MDRD) Af Amer 48 (>60) L 04/30/19 04:41 Est GFR (MDRD) Non-Af 39 (>60) L 04/30/19 04:41 Glucose 98 mg/dL (65-99) 04/30/19 04:41 Calcium 8.0 mg/dL (8.5-10.1) L 04/30/19 04:41 Corrected Calcium 9.1 mg/dL (8.5-10.1) 04/30/19 04:41 Magnesium 1.8 mg/dL (1.7-2.9) 04/27/19 04:53 Total Bilirubin 0.20 mg/dL (0.2-1.0) 04/30/19 04:41 AST 22 Units/L (15-37) 04/30/19 04:41 ALT 15 Units/L (12-78) 04/30/19 04:41 Alkaline Phosphatase 76 Units/L (46-116) 04/30/19 04:41 Total Protein 5.9 g/dL (6.4-8.2) L 04/30/19 04:41 Albumin 2.6 g/dL (3.4-5.0) L 04/30/19 04:41 Globulin 3.3 g/dL (2.5-4.5) 04/30/19 04:41 Albumin/Globulin Ratio 0.8 Ratio (1.1-2.1) L 04/30/19 04:41 Vancomycin Trough 21.5 ug/mL (15-20) H* 04/29/19 08:42 - Plan (1) Infection of wound due to methicillin resistant Staphylococcus aureus (MRSA) Status: Acute Plan: IV FLUIDS, IV VANCOMYCIN, GENTAMICIN, CONTINUE TO MONITOR (2) Renal failure Status: Acute Qualifiers: Renal failure chronicity: acute on chronic Chronic kidney disease stage: unspecified stage Plan: OBTAIN ECHO, RENAL ULTRASOUND (3) Acute prerenal azotemia Status: Acute (4) CAD (coronary artery disease) Status: Chronic Qualifiers: Coronary Disease-Associated Artery/Lesion type: [place] artery [place] vs. transplanted heart: [place] heart Associated angina: without angina Qualified Code(s): I25.10 - Atherosclerotic heart disease of [place] coronary artery without angina pectoris (5) CHF (congestive heart failure) Status: Chronic (6) Diabetes mellitus, type 2 Status: Chronic Qualifiers: Diabetes mellitus exterminator termite insulin use: with prison use Diabetes mellitus complication status: with hypoglycemia Diabetes mellitus complication detail: without coma Qualified Code(s): E11.649 - Type 2 diabetes mellitus with hypoglycemia without coma (7) GERD (gastroesophageal reflux disease) Status: Chronic Qualifiers: Esophagitis presence: with esophagitis Qualified Code(s): K21.0 - Gastro- esophageal reflux disease with esophagitis (8) Hyperlipidemia Status: Chronic Qualifiers: Hyperlipidemia type: mixed hyperlipidemia Qualified Code(s): E78.2 - Mixed hyperlipidemia (9) Hypertension Status: Chronic Qualifiers: Hypertension type: essential hypertension
[2019-04-30] MEDS: SNACK - Diabetic Appropriate PO SCH (20:16)
[2019-04-30] MEDS ORDERED: PATIENT'S HOME MEDICATION PO SCH (21:00)
[2019-04-30] MEDS: ZOCOR TAB 40 MG PO SCH (21:37)
[2019-04-30] MEDS: COLACE CAP 100 MG PO SCH (21:37)
[2019-05-01 05:42] LABS: EOSINOPHILS # (AUTO) 0.3 x10^3/uL (0.0-0.2); EOSINOPHILS % (AUTO) 6.9 % (0.9-2.9); HEMATOCRIT 28.5 % (36.0-47.0); HEMOGLOBIN 9.7 g/dL (12.0-16.0); LYMPHOCYTES # (AUTO) 0.9 X10^3/uL (1.3-2.9); LYMPHOCYTES % (AUTO) 21.2 % (21.0-51.0); MEAN CORPUSCULAR HEMOGLOBIN 33.6 pg (27.0-34.0); MEAN CORPUSCULAR HGB CONC 33.9 g/dL (33.0-35.0); MEAN CORPUSCULAR VOLUME 99.1 fL (80.0-100.0); MEAN PLATELET VOLUME 7.6 fL (7.4-11.0); MONOCYTES # (AUTO) 0.6 x10^3/uL (0.3-0.8); MONOCYTES % (AUTO) 13.2 % (0.0-13.0); NEUTROPHILS # (AUTO) 2.6 x10^3/uL (2.2-4.8); NEUTROPHILS % (AUTO) 57.7 % (42.0-75.0); PLATELET COUNT 194 X10^3/uL (150.0-450.0); RED BLOOD COUNT 2.88 X10^6/uL (3.5-5.4); RED CELL DISTRIBUTION WIDTH 14.1 % (11.6-16.5); WHITE BLOOD COUNT 4.5 X10^3/uL (3.6-10.0)
[2019-05-01 06:05] LABS: ALBUMIN 2.5 g/dL (3.4-5.0); CALCIUM 7.6 mg/dL (8.5-10.1); CARBON DIOXIDE 23.2 mmol/L (21-32); COR CA(FOR HYPOALB) 8.8 mg/dL (8.5-10.1); CREATININE 1.27 mg/dL (0.55-1.02); TOTAL PROTEIN 5.7 g/dL (6.4-8.2)
[2019-05-01] MEDS: LEVEMIR SC SCH (08:31)
[2019-05-01] MEDS: LOVENOX INJ 30 MG SYR SC SCH (08:32)
[2019-05-01] MEDS: SENOKOT PO SCH (08:33)
[2019-05-01] MEDS: ZANTAC PO SCH (08:34)
[2019-05-01] MEDS: HEMOCYTE-PLUS PO SCH (08:34)
[2019-05-01] MEDS: EFFEXOR XR 75 MG CAP PO SCH (08:34)
[2019-05-01] MEDS: VITAMIN C PO SCH (08:34)
[2019-05-01] MEDS: VITAMIN D3 PO SCH (08:34)
[2019-05-01] MEDS: TAB-A-VITE PO SCH (08:35)
[2019-05-01] MEDS: VANCOMYCIN HCL 500 MG VIAL 500 MG in NS 100 ML IV 100 ML IV SCH (08:35)
[2019-05-01] MEDS: QUESTRAN POWDER FOR ORAL SUSP PO SCH (08:35)
[2019-05-01] MEDS: PROTONIX TAB 40 MG PO SCH (08:35)
[2019-05-01] MEDS: BENADRYL CAP/TAB 25 MG PO SCH (08:35)
[2019-05-01] MEDS: ZINC SULFATE PO SCH (08:41)
[2019-05-01] MEDS: GENTAMICIN TOPICAL CRM TOP SCH (08:43)
[2019-05-01] MEDS: NS 1000 ML 1,000 ML IV SCH ×2 (08:43)
[2019-05-01] MEDS: NEURONTIN CAP 400 MG PO SCH (09:55)
[2019-05-01] MEDS: COREG TAB 3.125 MG PO SCH (10:45)
[2019-05-01 13:13] VITALS: BP 181/72
== END 2019-05-01 14:10 | DRG 605 ==
LOC: MED/SURG 18:25
PROVIDERS: ADMIT Internal Medicine; ATTEND Internal Medicine
DX: E78.2 Mixed hyperlipidemia; R26.89 Other abnormalities of gait and mobility; N17.8 Other acute kidney failure; B95.62 Methicillin resistant Staphylococcus aureus infection as the cause of diseases classified elsewhere; R94.4 Abnormal results of kidney function studies; E11.649 Type 2 diabetes mellitus with hypoglycemia without coma; K21.9 Gastro-esophageal reflux disease without esophagitis; S71.101A Unspecified open wound, right thigh, initial encounter; I11.0 Hypertensive heart disease with heart failure; I25.10 Atherosclerotic heart disease of native coronary artery without angina pectoris
CPT/HCPCS: 36415; 76770; 80053; 80202; 82565; 83735; 85025; 87040; 93306; 94760; 97116; 97162; 97166; 97530; 97535; A4216; A4222; J1650; J1815; J1940; J3370; J3490; J7030; J7050; J7060

== ENCOUNTER 2019-08-23 16:49 | Observation (INO) ==
[2019-08-23 22:22] VITALS: BMI 30.4
[2019-08-23] MEDS: NS 1000 ML 1,000 ML IV SCH (22:41)
[2019-08-23 22:46] LABS: BILIRUBIN,URINE NEGATIVE (NEGATIVE); BLOOD/HEMOGLOBIN,URINE 3+ (NEGATIVE); GLUCOSE, URINE 3+ (NEGATIVE); KETONES,URINE NEGATIVE (NEGATIVE); LEUKOCYTE ESTERASE ,URINE 3+ (NEGATIVE); NITRITES,URINE NEGATIVE (NEGATIVE); PROTEIN,URINE 3+ (NEGATIVE); UROBILINOGEN,URINE NORMAL (NORMAL)
[2019-08-23] MEDS: NORCO 10/325 TAB PO PRN (22:50)
[2019-08-23] MEDS: HumuLIN R SUBCUT PRN (22:50)
[2019-08-23 22:57] LABS: APPEARANCE,URINE CLOUDY (CLEAR); COLOR,URINE YELLOW (YELLOW)
[2019-08-23 22:58] LABS: AMORPHOUS SEDIMENT,UR 2+ /HPF (NEGATIVE); BACTERIA,URINE 2+ /HPF (NEGATIVE); SQUAMOUS EPITHELIAL CELL,UR FEW /HPF (NEGATIVE)
[2019-08-23] MEDS ORDERED: PHARMACY CONSULT LTC MEDICATIONS XX SCH (23:00)
[2019-08-24 06:12] LABS: BASOPHILS # (AUTO) 0.1 X10^3/uL (0.0-0.1); BASOPHILS % (AUTO) 1.2 % (0.2-1.0); EOSINOPHILS # (AUTO) 0.4 x10^3/uL (0.0-0.2); EOSINOPHILS % (AUTO) 7.7 % (0.9-2.9); HEMATOCRIT 30.7 % (36.0-47.0); HEMOGLOBIN 10.3 g/dL (12.0-16.0); LYMPHOCYTES # (AUTO) 1.6 X10^3/uL (1.3-2.9); LYMPHOCYTES % (AUTO) 29.1 % (21.0-51.0); MEAN CORPUSCULAR HEMOGLOBIN 33.1 pg (27.0-34.0); MEAN CORPUSCULAR HGB CONC 33.7 g/dL (33.0-35.0); MEAN CORPUSCULAR VOLUME 98.3 fL (80.0-100.0); MEAN PLATELET VOLUME 7.3 fL (7.4-11.0); MONOCYTES # (AUTO) 0.8 x10^3/uL (0.3-0.8); MONOCYTES % (AUTO) 14.6 % (0.0-13.0); NEUTROPHILS # (AUTO) 2.6 x10^3/uL (2.2-4.8); NEUTROPHILS % (AUTO) 47.4 % (42.0-75.0); PLATELET COUNT 243 X10^3/uL (150.0-450.0); RED BLOOD COUNT 3.12 X10^6/uL (3.5-5.4); RED CELL DISTRIBUTION WIDTH 14.3 % (11.6-16.5); WHITE BLOOD COUNT 5.6 X10^3/uL (3.6-10.0)
[2019-08-24 06:26] LABS: ALBUMIN 2.8 g/dL (3.4-5.0); CALCIUM 8.2 mg/dL (8.5-10.1); CARBON DIOXIDE 21.3 mmol/L (21-32); COR CA(FOR HYPOALB) 9.2 mg/dL (8.5-10.1); CREATININE 1.6 mg/dL (0.55-1.02)
[2019-08-24] MEDS ORDERED: INVANZ INJ 1 GM VIAL 1 GM in NS 100 ML IV + SPIKE MINIBAG* 100 ML IV SCH (09:00)
[2019-08-24] MEDS: LOVENOX INJ 30 MG SYR SC SCH (10:29)
[2019-08-24] MEDS: NS 1000 ML 1,000 ML IV SCH ×2 (10:42→11:53)
[2019-08-24] MEDS: HumuLIN R SUBCUT PRN ×3 (11:43→21:07)
[2019-08-24] MEDS: NORCO 10/325 TAB PO PRN ×2 (14:56→20:59)
--- NOTE | 2019-08-24 22:10 | DR.H&P ---
H&P - History & Physical for Day of: H&P Date: 08/24/19 - Chief Complaint Chief Complaint: DEHYDRATION, HYPERKALEMIA - History of Present Illness History of Present Illness: IS A 84 YEAR OLD PATIENT OF OURS. SHE IS A RESIDENT OF [facility]. SHE PRESENTED TO THE HOSPITAL A DIRECT ADMISSION FOR TREATMENT OF DEHYDRATION AND HYPERKALEMIA. OUTPATIENT LABS WERE OBTAINED AND REVEALED THE FOLLOWING ABNORMAL LAB VALUES: RBC 3.27, HGB 10.9, HCT 32.7, POTASSIUM 5.7, CHLORIDE 108, BUN 58, CREATININE 1.78, GLUCOSE 246, CALCIUM 8.3, ALBUMIN 3.1. A URINALYSIS WAS OBTAINED ON ADMISSION AND REVEALED: RBC 10- 20, WBC TNTC, BACTERIA 2+, LEUKOCYTES 3+. A URINE CULTURE WAS SET UP. WE WILL START NORMAL SALINE AT 80ML/HR AND INVANZ 0.5G IV DAILY. WE WILL REVIEW HER HOME MEDICATIONS. OTHERWISE, WE WILL FOLLOW UP WITH AM LABS AND CONTINUE TO MONITOR. - Past Medical History Past Medical History: Coronary Artery Disease, Hypertension, Diabetes, Renal Disease, Depression, Anemia, GERD, Arthritis, CHF Additional Medical History: Cataracts, Constipation, Urinary Tract Infections - Past Surgical History Surgical History: Angioplasty/Stents, Hysterectomy, Ortho Surgery - Family History Family Medical History: Coronary Artery Disease, Hypertension - Social History Alcohol Use: None Drug Use: None - Medications Home Medications: ezetimibe [From Zetia] Allergy (Verified 04/25/19 20:45) Influenza Virus Vaccines Allergy (Verified 04/25/19 20:45) Penicillins Allergy (Verified 04/25/19 20:45) pneumococcal vaccine Allergy (Verified 04/25/19 20:45) ropinirole [From Requip] Allergy (Verified 04/25/19 20:45) CONTINUE taking the following medications albuterol sulfate 1.25 mg INHALATION Q6H 08/23/19 [History] amitriptyline 10 mg PO HS 08/23/19 [History] ascorbic acid (vitamin C) 500 mg PO BID 08/23/19 [History] biotin 1,000 mcg PO DAILY 08/23/19 [History] carvedilol 3.125 mg PO BID 08/23/19 [History] cholecalciferol (vitamin D3) 5,000 unit PO DAILY 08/23/19 [History] clopidogrel 75 mg PO DAILY 08/23/19 [History] diphenhydramine HCl [Benadryl Allergy] 25 mg PO DAILY PRN 08/23/19 [History] docusate sodium [Colace] 100 mg PO HS 08/23/19 [History] epoetin olga [Procrit] 10,000 unit SUBCUT WEEKLY 08/23/19 [History] ferrous fumarate [Hemocyte] 324 mg PO DAILY 08/23/19 [History] hydrocodone-acetaminophen 1 tab PO Q6H PRN 08/23/19 [History] insulin detemir U-100 [Levemir U-100 Insulin] 38 unit SUBCUT BID 08/23/19 [History] insulin regular human [Novolin R Regular U-100 Insuln] 1 sliding scale dose SUBCUT PRN PRN 08/23/19 [History] multivitamin with minerals [Multiple Vitamin-Minerals] 1 tab PO DAILY 08/23/19 [History] pantoprazole 40 mg PO DAILY 08/23/19 [History] pregabalin [Lyrica] 100 mg PO DAILY 08/23/19 [History] ranitidine HCl 150 mg PO DAILY 08/23/19 [History] sennosides 17.2 mg PO BID 08/23/19 [History] simvastatin 40 mg PO HS 08/23/19 [History] venlafaxine 37.5 mg PO DAILY 08/23/19 [History] zinc 50 mg PO DAILY 08/23/19 [History] - Review of Systems Constitutional: Weakness Eyes: No Symptoms Reported ENT: No Symptoms Reported Respiratory: No Symptoms Reported Cardiovascular: No Symptoms Reported Gastrointestinal: No Symptoms Reported Genitourinary: No Symptoms Reported Musculoskeletal: No Symptoms Reported Skin: No Symptoms Reported Neurological: Weakness - Physical Exam Vital Signs: Temperature 97.8 F Pulse Rate [Left Brachial] 75 Respiratory Rate 15 Blood Pressure [Left Arm] 121/56 Blood Pressure [Right Arm] 158/66 Blood Pressure 136/66 O2 Sat by Pulse Oximetry 96 Oriented: Normal Eyes: Normal Ear: Normal Nose: Normal Throat: Normal Respiratory: Diminished Throughout Cardiovascular: Normal. negative: S3, S4, Murmur : Normal Auscultation: Bowel Sounds: Normal Palpation: Normal Tenderness: Normal Skin: Normal Musculoskeletal: Normal Psychiatric: Normal Mood Description: Calm Affect: Normal Speech Pattern: Clear - Assessment/Plan (1) Dehydration Status: Acute Plan: NORMAL SALINE AT 80ML/HR, CONTINUE TO MONITOR (2) Hyperkalemia Status: Acute (3) Urinary tract infection Qualifiers: Urinary tract infection type: acute cystitis Hematuria presence: with hematuria Qualified Code(s): N30.01 - Acute cystitis with hematuria Status: Acute Plan: INVANZ 0.5MG IV DAILY, CONTINUE TO MONITOR - Allergies Allergies/Adverse Reactions: Allergies Allergy/AdvReac Type Severity Reaction Status Date / Time ezetimibe [From Zetia] Allergy Verified 04/25/19 20:45 Influenza Virus Vaccines Allergy Verified 04/25/19 20:45 Penicillins Allergy Verified 04/25/19 20:45 pneumococcal vaccine Allergy Verified 04/25/19 20:45 ropinirole [From Requip] Allergy Verified 04/25/19 20:45
[2019-08-24] MEDS ORDERED: BENADRYL CAP/TAB 25 MG PO PRN (22:48)
[2019-08-24] MEDS ORDERED: LEVEMIR SC SCH (23:00)
[2019-08-24] MEDS ORDERED: ELAVIL PO SCH (23:00)
[2019-08-25] MEDS: NS 1000 ML 1,000 ML IV SCH ×2 (00:23→13:16)
[2019-08-25 06:38] LABS: BASOPHILS # (AUTO) 0.1 X10^3/uL (0.0-0.1); BASOPHILS % (AUTO) 1.2 % (0.2-1.0); EOSINOPHILS # (AUTO) 0.4 x10^3/uL (0.0-0.2); EOSINOPHILS % (AUTO) 7.7 % (0.9-2.9); HEMATOCRIT 30.8 % (36.0-47.0); HEMOGLOBIN 10.3 g/dL (12.0-16.0); LYMPHOCYTES # (AUTO) 1.7 X10^3/uL (1.3-2.9); LYMPHOCYTES % (AUTO) 32.4 % (21.0-51.0); MEAN CORPUSCULAR HEMOGLOBIN 32.7 pg (27.0-34.0); MEAN CORPUSCULAR HGB CONC 33.4 g/dL (33.0-35.0); MEAN CORPUSCULAR VOLUME 98.1 fL (80.0-100.0); MEAN PLATELET VOLUME 7.4 fL (7.4-11.0); MONOCYTES # (AUTO) 0.5 x10^3/uL (0.3-0.8); MONOCYTES % (AUTO) 10.4 % (0.0-13.0); NEUTROPHILS # (AUTO) 2.5 x10^3/uL (2.2-4.8); NEUTROPHILS % (AUTO) 48.3 % (42.0-75.0); PLATELET COUNT 234 X10^3/uL (150.0-450.0); RED BLOOD COUNT 3.14 X10^6/uL (3.5-5.4); RED CELL DISTRIBUTION WIDTH 14.5 % (11.6-16.5); WHITE BLOOD COUNT 5.2 X10^3/uL (3.6-10.0)
[2019-08-25 06:53] LABS: ALBUMIN 2.7 g/dL (3.4-5.0); CARBON DIOXIDE 22.8 mmol/L (21-32); CREATININE 1.32 mg/dL (0.55-1.02)
[2019-08-25 08:08] VITALS: BP 182/75
[2019-08-25] MEDS ORDERED: BIOTIN 1000 MCG PO SCH (09:00)
[2019-08-25] MEDS ORDERED: LEVEMIR SC SCH (09:00)
[2019-08-25] MEDS ORDERED: ZINC SULFATE PO SCH (09:00)
[2019-08-25] MEDS ORDERED: TAB-A-VITE PO SCH (09:00)
[2019-08-25] MEDS ORDERED: INVANZ INJ 1 GM VIAL 0.5 GM in NS 50 ML IV 50 ML IV SCH (09:00)
[2019-08-25] MEDS ORDERED: PLAVIX PO SCH (09:00)
[2019-08-25] MEDS ORDERED: SENOKOT PO SCH ×2 (09:00)
[2019-08-25] MEDS ORDERED: PROTONIX TAB 40 MG PO SCH (09:00)
[2019-08-25] MEDS ORDERED: EFFEXOR XR 37.5 MG CAP PO SCH (09:00)
[2019-08-25] MEDS ORDERED: COREG TAB 3.125 MG PO SCH (09:00)
[2019-08-25] MEDS ORDERED: ZANTAC PO SCH (09:00)
[2019-08-25] MEDS ORDERED: VITAMIN D3 PO SCH (09:00)
[2019-08-25] MEDS ORDERED: VITAMIN C PO SCH (09:00)
[2019-08-25] MEDS ORDERED: CHOLECALCIFEROL 5000 UNIT PO SCH (09:00)
[2019-08-25] MEDS ORDERED: PATIENT'S HOME MEDICATION (Zinc 50 MG) PO SCH (09:00)
[2019-08-25] MEDS ORDERED: PATIENT'S HOME MEDICATION (Ranitidine Hcl 150 MG) PO SCH (09:00)
[2019-08-25] MEDS ORDERED: PATIENT'S HOME MEDICATION (Ferrous Fumarate [Hemocyte] 324 MG) PO SCH (09:00)
[2019-08-25] MEDS: NORCO 10/325 TAB PO PRN (09:16)
[2019-08-25] MEDS: LOVENOX INJ 30 MG SYR SC SCH (09:17)
[2019-08-25] MEDS: ACCUNEB 1.25 MG NEBULE IN SCH ×2 (09:31→12:12)
[2019-08-25] MEDS: HumuLIN R SUBCUT PRN (12:05)
[2019-08-25] MEDS ORDERED: SNACK - Diabetic Appropriate PO SCH (20:00)
[2019-08-25] MEDS ORDERED: COLACE CAP 100 MG PO SCH (21:00)
[2019-08-25] MEDS ORDERED: ZOCOR TAB 40 MG PO SCH (21:00)
[2019-08-28] MEDS ORDERED: PROCRIT or EPOGEN SC SCH (09:00)
== END 2019-08-25 13:50 ==
LOC: MED/SURG
PROVIDERS: ADMIT Internal Medicine; ATTEND Internal Medicine
CPT/HCPCS: 36415; 80053; 81001; 85025; 87086; 87088; 87186; 94640; 96360; 96361; 96372; 97162; 97166; A4216; A4222; G0378; J1650; J1815; J7030; J7613

== ENCOUNTER 2019-09-16 20:27 | Inpatient (IN) ==
[2019-09-16] MEDS ORDERED: ZOSYN VIAL 2.25 GRAMS 2.25 G in NS 100 ML IV + SPIKE MINIBAG* 100 ML IV STA (20:43)
--- NOTE | 2019-09-16 20:46 | DR.GENAD ---
HPI Time Seen Time Seen by Provider: 09/16/19 20:36 PCP Primary Care Physician: liz HPI Comment HPI Comment: Reports she's felt bad for some time with n/v and abd pain today; she's had dysuria and has been unable to get rid of uti; had labs done today with repeat ua. Complaint/Symptoms Chief Complaint:: SENT OVER FROM [facility] FOR ABNORMAL LABS, UTI, AND DIARRHEA. O/S TODAY. JUST NOT FEELING GOOD TODAY. Nurses notes reviewed Nurses Notes Review: Yes Source History Provided: [facility] Mode of Arrival Mode of Arrival: Stretcher Timing Onset of Chief Complaint: 09/16/19 PMH PMH Past Medical History: Yes Past Medical History: Anemia, Arthritis, CHF, Coronary Artery Disease, Depression, Diabetes, GERD, Hypertension and Renal Disease Past Surgical History: Yes Surgical History: Angioplasty/Stents, Hysterectomy and Ortho Surgery Family History History of Family Medical Conditions: Yes Family Medical History: Coronary Artery Disease and Hypertension Social History Does patient currently use any type of tobacco product: No Have you used tobacco products in the last 12 months: No Type of Tobacco Use: None Does any household member use tobacco: No Alcohol Use: None Do you use any recreational Drugs:: No Lives With: Other Lives Where: [facility] infectious screening In the last 2 months have you had wt loss of >10#?: NO Have you traveled outside the country in the last 6 months?: No Isolation: Standard ROS Review of Systems Constitutional: See HPI, Malaise and Fatigue Respiratoy: No Symptoms Reported Cardiovascular: No Symptoms Reported Gastrointestinal/Abdominal: See HPI Genitourinary: See HPI and Dysuria Neurological: No Symptoms Reported Musculoskeletal: See HPI, Joint Pain and Muscle Pain Integumentary: No Symptoms Reported (no rash) Hematologic/Lymphatic: No Symptoms Reported Endocrine: No Symptoms Reported Psychiatric: No Symptoms Reported PE Vital Signs Vitals: Temperature 98.0 F Pulse Rate 92 Respiratory Rate 18 Blood Pressure [Left Arm] 182/75 Blood Pressure [Right Arm] 158/66 Blood Pressure 187/75 O2 Sat by Pulse Oximetry 99 General Limitations: No Limitations and Language Barrier General Appearance: Alert and In No Apparent Distress Head Head Exam: Normal Inspection, Atraumatic and Normocephalic Eyes Eye exam: Normal Appearance, PERRL and EOMI ENT ENT Exam: Normal Exam Mouth Exam: Normal Inspection Neck Neck Exam: Normal Inspection, Full ROM and Trachea Midline Chest Chest Inspection: Normal Inspection and Symmetric Chest Wall Rise Respiratory Respiratory Exam: Normal Lung Sounds Bilat Respiratory Exam: Bilateral: Clear to Auscultation Cardiovascular Cardiovascular Exam: Regular Rate and Normal Rhythm Abdominal Exam Abdominal Exam: Normal Inspection, Normal Bowel Sounds and Soft Extremities Extremities Exam: Normal Inspection Neurologic Neurological Exam: Alert Psychiatric Psychiatric Exam: Normal Affect and Normal Mood COURSE Reevaluation 1st: Worsened (legs are hurting) ROR Labs Reviewed Laboratory Results Reviewed?: Yes Other Results Comments: potassium 5.5 creat 2.2 up from 1.79 09/02 wbc 17.9 ua + urine c/s 09/02 ESBL E. coli sensitive to zosyn, carbepenams; has taken zosyn in past w/o complications Opioid Opioid Risk Tool Age (Juno box if 16-45): No History of Preadolescent Sexual Abuse: No Total: 0 Total Score Risk Category: Low Risk Copyright: Kishore BRIONES predicting aberrant behaviors Diagnosis Discharge Problem: Urinary tract infection due to extended-spectrum beta lactamase (ESBL) producing Escherichia coli, Acute hyperkalemia Acute on chronic renal failure Qualifiers: Acute renal failure type: unspecified Chronic kidney disease stage: stage 3 (moderate) Qualified Code(s): N17.9 - Acute kidney failure, unspecified Nausea & vomiting Qualifiers: Vomiting type: unspecified Vomiting Intractability: non-intractable Qualified Code(s): R11.2 - Nausea with vomiting, unspecified
[2019-09-16] MEDS ORDERED: NS 1000 ML 1,000 ML ONE (20:49)
[2019-09-16] MEDS: NS 1000 ML 1,000 ML IV SCH ×2 (21:01→22:56)
[2019-09-16] MEDS ORDERED: NORCO 10/325 TAB ONE (21:49)
[2019-09-16] MEDS ORDERED: ZOFRAN INJ 4 MG VIAL IVP PRN (21:51)
[2019-09-16] MEDS: NORCO 10/325 TAB PO PRN (21:53)
[2019-09-16 23:04] VITALS: BMI 32.8
[2019-09-16] MEDS ORDERED: PHARMACY CONSULT LTC MEDICATIONS XX SCH (23:45)
[2019-09-17] MEDS: NS 1000 ML 1,000 ML IV SCH ×4 (05:08→21:04)
[2019-09-17] MEDS: ZOSYN VIAL 2.25 GRAMS 2.25 G in NS 100 ML IV + SPIKE MINIBAG* 100 ML IV SCH ×4 (05:08→21:05)
[2019-09-17 06:14] LABS: BASOPHILS # (AUTO) 0.1 X10^3/uL (0.0-0.1); BASOPHILS % (AUTO) 0.6 % (0.2-1.0); EOSINOPHILS # (AUTO) 0.3 x10^3/uL (0.0-0.2); HEMATOCRIT 31.3 % (36.0-47.0); HEMOGLOBIN 10.2 g/dL (12.0-16.0); LYMPHOCYTES # (AUTO) 1.5 X10^3/uL (1.3-2.9); LYMPHOCYTES % (AUTO) 11.3 % (21.0-51.0); MEAN CORPUSCULAR HEMOGLOBIN 31.9 pg (27.0-34.0); MEAN CORPUSCULAR HGB CONC 32.5 g/dL (33.0-35.0); MEAN CORPUSCULAR VOLUME 98.2 fL (80.0-100.0); MEAN PLATELET VOLUME 8.3 fL (7.4-11.0); MONOCYTES # (AUTO) 1.2 x10^3/uL (0.3-0.8); MONOCYTES % (AUTO) 8.6 % (0.0-13.0); NEUTROPHILS # (AUTO) 10.5 x10^3/uL (2.2-4.8); NEUTROPHILS % (AUTO) 77.5 % (42.0-75.0); PLATELET COUNT 285 X10^3/uL (150.0-450.0); RED BLOOD COUNT 3.19 X10^6/uL (3.5-5.4); RED CELL DISTRIBUTION WIDTH 14.9 % (11.6-16.5); WHITE BLOOD COUNT 13.5 X10^3/uL (3.6-10.0)
[2019-09-17 06:21] LABS: ALBUMIN 2.7 g/dL (3.4-5.0); CALCIUM 8.3 mg/dL (8.5-10.1); CARBON DIOXIDE 24.3 mmol/L (21-32); COR CA(FOR HYPOALB) 9.3 mg/dL (8.5-10.1); CREATININE 1.61 mg/dL (0.55-1.02); TOTAL PROTEIN 6.5 g/dL (6.4-8.2)
[2019-09-17] MEDS: HumuLIN R SUBCUT PRN ×4 (06:43→20:21)
[2019-09-17] MEDS ORDERED: NORCO 10/325 TAB PO PRN (07:06)
[2019-09-17] MEDS ORDERED: MAGIC MOUTHWASH MT PRN (07:08)
[2019-09-17] MEDS: SENOKOT PO SCH ×2 (08:35→20:18)
[2019-09-17] MEDS: NORCO 10/325 TAB PO PRN ×2 (08:35→20:19)
[2019-09-17] MEDS: PROTONIX TAB 40 MG PO SCH (08:35)
[2019-09-17] MEDS: VITAMIN D3 PO SCH (08:36)
[2019-09-17] MEDS: VITAMIN C PO SCH (08:36)
[2019-09-17] MEDS: HEMOCYTE-PLUS PO SCH (08:37)
[2019-09-17] MEDS: ZINC SULFATE PO SCH (08:37)
[2019-09-17] MEDS: LYRICA CAP 75 mg PO SCH ×2 (08:37→20:19)
[2019-09-17] MEDS: TAB-A-VITE PO SCH (08:37)
[2019-09-17] MEDS: COREG TAB 3.125 MG PO SCH ×2 (08:38→20:19)
[2019-09-17] MEDS: EFFEXOR XR 37.5 MG CAP PO SCH (08:38)
[2019-09-17] MEDS: PLAVIX PO SCH (08:52)
[2019-09-17] MEDS: LEVEMIR SC SCH ×2 (08:52→20:20)
[2019-09-17] MEDS ORDERED: LEVEMIR SC SCH (09:00)
[2019-09-17] MEDS: VOLTAREN 1 % GEL MULTI DOSE TUBE TOP SCH ×3 (11:38→21:05)
[2019-09-17] MEDS: SNACK - Diabetic Appropriate PO SCH (20:18)
[2019-09-17] MEDS: BENADRYL CAP/TAB 25 MG PO SCH (20:19)
[2019-09-17] MEDS: ZOCOR TAB 40 MG PO SCH (20:19)
[2019-09-17] MEDS: ELAVIL PO SCH (20:19)
[2019-09-17] MEDS: COLACE CAP 100 MG PO SCH (20:19)
[2019-09-18] MEDS: NS 1000 ML 1,000 ML IV SCH ×3 (00:32→16:17)
[2019-09-18] MEDS: ZOSYN VIAL 2.25 GRAMS 2.25 G in NS 100 ML IV + SPIKE MINIBAG* 100 ML IV SCH ×3 (05:55→22:32)
[2019-09-18] MEDS: VOLTAREN 1 % GEL MULTI DOSE TUBE TOP SCH ×3 (06:00→22:31)
[2019-09-18 06:26] LABS: BASOPHILS # (AUTO) 0.1 X10^3/uL (0.0-0.1); BASOPHILS % (AUTO) 0.5 % (0.2-1.0); EOSINOPHILS # (AUTO) 0.3 x10^3/uL (0.0-0.2); EOSINOPHILS % (AUTO) 2.2 % (0.9-2.9); HEMATOCRIT 31.2 % (36.0-47.0); HEMOGLOBIN 10.3 g/dL (12.0-16.0); LYMPHOCYTES # (AUTO) 1.1 X10^3/uL (1.3-2.9); LYMPHOCYTES % (AUTO) 8.8 % (21.0-51.0); MEAN CORPUSCULAR HEMOGLOBIN 32.1 pg (27.0-34.0); MEAN CORPUSCULAR VOLUME 97.2 fL (80.0-100.0); MEAN PLATELET VOLUME 8.1 fL (7.4-11.0); MONOCYTES # (AUTO) 1.3 x10^3/uL (0.3-0.8); MONOCYTES % (AUTO) 10.5 % (0.0-13.0); NEUTROPHILS # (AUTO) 9.9 x10^3/uL (2.2-4.8); PLATELET COUNT 248 X10^3/uL (150.0-450.0); RED BLOOD COUNT 3.21 X10^6/uL (3.5-5.4); RED CELL DISTRIBUTION WIDTH 14.6 % (11.6-16.5); WHITE BLOOD COUNT 12.7 X10^3/uL (3.6-10.0)
[2019-09-18 06:32] LABS: ALANINE AMINOTRANSFERASE 19 Units/L (12-78); ALBUMIN 2.5 g/dL (3.4-5.0); ALKALINE PHOSPHATASE 88 Units/L (46-116); ASPARTATE AMINO TRANSFERASE 20 Units/L (15-37); BLOOD UREA NITROGEN 45 mg/dL (7-18); CALCIUM 8.1 mg/dL (8.5-10.1); CARBON DIOXIDE 24.5 mmol/L (21-32); CHLORIDE 111 mmol/L (98-107); COR CA(FOR HYPOALB) 9.3 mg/dL (8.5-10.1); CREATININE 1.52 mg/dL (0.55-1.02); SODIUM 144 mmol/L (136-145); TOTAL PROTEIN 6.3 g/dL (6.4-8.2); eGFR NON BLACK RACES 35 (>60)
--- NOTE | 2019-09-18 06:32 | RAD ---
HISTORYShortness of breathSTUDYCHEST, 1 [id number] heart is enlarged. No definite congestive heart failure is noted. No acute alveolar infiltrates or pleural effusions are identified. The bony thorax is unremarkable.IMPRESSIONCardiomegaly without congestive heart failureNo definite infiltratesElectronically signed by: USHA MANLEY (Sep 18, 2019 06:31:23)
[2019-09-18] MEDS ORDERED: PROCRIT or EPOGEN VIAL 40,000 UNITS SC SCH (08:00)
--- NOTE | 2019-09-18 08:51 | DR.H&P ---
H&P - History & Physical for Day of: H&P Date: 09/16/19 - Chief Complaint Chief Complaint: NAUSEA, VOMITING, DIARRHEA, WEAKNESS - History of Present Illness History of Present Illness: IS A 84 YEAR OLD PATIENT OF OURS. SHE PRESENTED TO THE ER TODAY WITH COMPLAINTS OF NAUSEA, VOMITING, AND DIARRHEA. SHE HAS BEEN TREATED FOR A UTI AT THE [facility] THE PAST SEVERAL DAYS. OUTPATIENT LABS WERE OBTAINED AND REVEALED: WBC 17.9, RBC 3.20, HGB 10.4, HCT 31.2, POTASSIUM 5.5, BUN 68, CREATININE 2.02, GLUCOSE 260, CALCIUM 7.9, TOTAL BILI 0.10, TOTAL PROTEIN 6.2, ALBUMIN 2.6. URINALYSIS REVEAED: WBC 30-50, RBC 5- 10, BACTERIA 3+, LEUKOCYTES 3+. BLOOD AND URINE CULTURES ARE PENDING. A CHEST XRAY WAS OBTAINED AND REVEALED: CARDIOMEGALY WITHOUT CHF. NO DEFINITE INFILTRATES. SHE WAS ADMITTED FOR FURTHER EVALUATION AND TREATMENT OF UTI DUE TO E.COLI, HYPERKALEMIA, AND ACUTE ON CHRONIC RENAL FAILURE. SHE WAS STARTED ON NORMAL SALINE AT 100ML/HR, ZOSYN 2.25G IV TID, HUMULIN R SLIDING SCALE, ZOFRAN 4MG IV Q8H PRN, AND HOME MEDICATIONS WERE RESUMED. OTHERWISE, WE PLAN TO FOLLOW UP WITH AM LABS AND CONTINUE TO MONITOR. - Past Medical History Past Medical History: Coronary Artery Disease, Hypertension, Diabetes, Renal Disease, Depression, Anemia, GERD, Arthritis, CHF Additional Medical History: Cataracts, Constipation, Urinary Tract Infections - Past Surgical History Surgical History: Angioplasty/Stents, Hysterectomy, Ortho Surgery - Family History Family Medical History: Coronary Artery Disease, Hypertension - Social History Does patient currently use any type of tobacco product: No Have you used tobacco products in the last 12 months: No Type of Tobacco Use: None Does any household member use tobacco: No Alcohol Use: None Drug Use: None - Medications Home Medications: ezetimibe [From Zetia] Allergy (Verified 09/16/19 20:38) Influenza Virus Vaccines Allergy (Verified 09/16/19 20:38) Penicillins Allergy (Verified 09/16/19 20:38) pneumococcal vaccine Allergy (Verified 09/16/19 20:38) ropinirole [From Requip] Allergy (Verified 09/16/19 20:38) CONTINUE taking the following medications ascorbic acid-collagen [Collagen Plus Vitamin C] 1 cap PO TID 09/16/19 [History] diclofenac sodium 1 % TOPICAL Q8H PRN 09/16/19 [History] - Review of Systems Constitutional: Weakness Eyes: No Symptoms Reported ENT: No Symptoms Reported Respiratory: No Symptoms Reported Cardiovascular: No Symptoms Reported Gastrointestinal: Nausea, Vomiting, Abdominal Pain, Diarrhea Genitourinary: No Symptoms Reported Musculoskeletal: No Symptoms Reported Skin: No Symptoms Reported Neurological: Weakness - Physical Exam Vital Signs: Temperature 97.8 F Pulse Rate [Brachial] 80 Pulse Rate 92 Respiratory Rate 16 Blood Pressure [Left Arm] 182/75 Blood Pressure [Right Arm] 158/66 Blood Pressure 187/75 O2 Sat by Pulse Oximetry 99 Oriented: Normal Eyes: Normal Ear: Normal Nose: Normal Throat: Normal Respiratory: Diminished Throughout Cardiovascular: Normal : Normal Auscultation: Bowel Sounds: Normal Palpation: Normal Tenderness: Suprapubic, Moderate. negative: Rebound, Guarding, Rigidity Skin: Decreased Turgur Musculoskeletal: Normal Psychiatric: Normal Mood Description: Calm Affect: Normal Speech Pattern: Clear - Assessment/Plan (1) E. coli UTI (urinary tract infection) Status: Acute Plan: IV FLUIDS, ZOSYN 2.25G IV TID, CONTINUE TO MONITOR (2) Renal failure (ARF), acute on chronic Qualifiers: Acute renal failure type: unspecified Chronic kidney disease stage: unspecified stage Qualified Code(s): N17.9 - Acute kidney failure, unspecified; N18.9 - Chronic kidney disease, unspecified Status: Acute Plan: IV FLUIDS, CONTINUE TO MONITOR (3) Hyperkalemia Status: Acute Plan: IV FLUIDS, CONTINUE TO MONITOR. - Allergies Allergies/Adverse Reactions: Allergies Allergy/AdvReac Type Severity Reaction Status Date / Time ezetimibe [From Zetia] Allergy Verified 09/16/19 20:38 Influenza Virus Vaccines Allergy Verified 09/16/19 20:38 Penicillins Allergy Verified 09/16/19 20:38 pneumococcal vaccine Allergy Verified 09/16/19 20:38 ropinirole [From Requip] Allergy Verified 09/16/19 20:38
[2019-09-18] MEDS: ZINC SULFATE PO SCH (09:31)
[2019-09-18] MEDS: LYRICA CAP 75 mg PO SCH ×2 (09:32→20:42)
[2019-09-18] MEDS: HEMOCYTE-PLUS PO SCH (09:32)
[2019-09-18] MEDS: PROTONIX TAB 40 MG PO SCH (09:33)
[2019-09-18] MEDS: PLAVIX PO SCH (09:33)
[2019-09-18] MEDS: SENOKOT PO SCH ×2 (09:35→20:41)
[2019-09-18] MEDS: TAB-A-VITE PO SCH (09:35)
[2019-09-18] MEDS: COREG TAB 3.125 MG PO SCH ×2 (09:36→20:41)
[2019-09-18] MEDS: EFFEXOR XR 37.5 MG CAP PO SCH (09:36)
[2019-09-18] MEDS: VITAMIN C PO SCH (09:36)
[2019-09-18] MEDS: VITAMIN D3 PO SCH (09:50)
[2019-09-18] MEDS: LEVEMIR SC SCH ×2 (10:30→20:44)
[2019-09-18] MEDS: NORCO 10/325 TAB PO PRN (10:38)
[2019-09-18] MEDS: LOVENOX INJ 30 MG SYR SC SCH (11:14)
[2019-09-18] MEDS ORDERED: NS 100 ML IV + SPIKE MINIBAG* 100 ML IV ONE (14:38)
[2019-09-18] MEDS: SNACK - Diabetic Appropriate PO SCH (20:35)
[2019-09-18] MEDS: ZOCOR TAB 40 MG PO SCH (20:42)
[2019-09-18] MEDS: COLACE CAP 100 MG PO SCH (20:42)
[2019-09-18] MEDS: ELAVIL PO SCH (20:42)
[2019-09-18] MEDS: BENADRYL CAP/TAB 25 MG PO SCH (20:42)
[2019-09-18] MEDS: HumuLIN R SUBCUT PRN (20:55)
[2019-09-19] MEDS: NS 1000 ML 1,000 ML IV SCH ×3 (03:14→20:26)
[2019-09-19] MEDS: VOLTAREN 1 % GEL MULTI DOSE TUBE TOP SCH ×3 (05:37→21:40)
[2019-09-19] MEDS: ZOSYN VIAL 2.25 GRAMS 2.25 G in NS 100 ML IV + SPIKE MINIBAG* 100 ML IV SCH (05:37)
--- NOTE | 2019-09-19 06:24 | RAD ---
HISTORYShortness of breathSTUDYCHEST, 1 [id number]/2019FINDINGSThe heart remains mildly enlarged. No congestive heart failure is noted. The aorta is calcified. The lung orozco are clear. No pleural effusions are identified. The bony thorax is unremarkable.IMPRESSIONMild cardiomegaly without congestive heart failureNo infiltratesElectronically signed by: USHA MANLEY (Sep 19, 2019 06:23:06)
[2019-09-19 06:26] LABS: BASOPHILS # (AUTO) 0.1 X10^3/uL (0.0-0.1); EOSINOPHILS # (AUTO) 0.4 x10^3/uL (0.0-0.2); EOSINOPHILS % (AUTO) 4.8 % (0.9-2.9); HEMATOCRIT 27.6 % (36.0-47.0); HEMOGLOBIN 9.1 g/dL (12.0-16.0); LYMPHOCYTES # (AUTO) 1.5 X10^3/uL (1.3-2.9); LYMPHOCYTES % (AUTO) 19.6 % (21.0-51.0); MEAN CORPUSCULAR HEMOGLOBIN 32.2 pg (27.0-34.0); MEAN CORPUSCULAR VOLUME 97.6 fL (80.0-100.0); MEAN PLATELET VOLUME 8.2 fL (7.4-11.0); MONOCYTES # (AUTO) 0.9 x10^3/uL (0.3-0.8); MONOCYTES % (AUTO) 11.8 % (0.0-13.0); NEUTROPHILS # (AUTO) 4.9 x10^3/uL (2.2-4.8); NEUTROPHILS % (AUTO) 62.8 % (42.0-75.0); PLATELET COUNT 197 X10^3/uL (150.0-450.0); RED BLOOD COUNT 2.83 X10^6/uL (3.5-5.4); RED CELL DISTRIBUTION WIDTH 14.8 % (11.6-16.5); WHITE BLOOD COUNT 7.7 X10^3/uL (3.6-10.0)
[2019-09-19 06:42] LABS: ALBUMIN 2.1 g/dL (3.4-5.0); CALCIUM 7.5 mg/dL (8.5-10.1); CARBON DIOXIDE 22.8 mmol/L (21-32); CREATININE 1.48 mg/dL (0.55-1.02); TOTAL PROTEIN 5.6 g/dL (6.4-8.2)
[2019-09-19] MEDS: LOVENOX INJ 30 MG SYR SC SCH (08:54)
[2019-09-19] MEDS: ZINC SULFATE PO SCH (09:00)
[2019-09-19] MEDS: TAB-A-VITE PO SCH (09:01)
[2019-09-19] MEDS: VITAMIN D3 PO SCH (09:01)
[2019-09-19] MEDS: SENOKOT PO SCH ×2 (09:01→20:26)
[2019-09-19] MEDS: PLAVIX PO SCH (09:02)
[2019-09-19] MEDS: COREG TAB 3.125 MG PO SCH ×2 (09:03→20:28)
[2019-09-19] MEDS: VITAMIN C PO SCH (09:03)
[2019-09-19] MEDS: LYRICA CAP 75 mg PO SCH ×2 (09:03→20:26)
[2019-09-19] MEDS: EFFEXOR XR 37.5 MG CAP PO SCH (09:03)
[2019-09-19] MEDS: HEMOCYTE-PLUS PO SCH (09:03)
[2019-09-19] MEDS: PROTONIX TAB 40 MG PO SCH (09:03)
[2019-09-19] MEDS: LEVEMIR SC SCH ×2 (09:04→20:27)
[2019-09-19] MEDS: INVANZ INJ 1 GM VIAL 1 GM in NS 100 ML IV + SPIKE MINIBAG* 100 ML IV SCH (09:07)
[2019-09-19] MEDS: NORCO 10/325 TAB PO PRN ×2 (09:11→20:34)
--- NOTE | 2019-09-19 11:15 | PCM.PROG ---
Progress Note - Progress Note for Day of Date of Exam: 09/18/19 - Subjective Subjective: WAS ADMITTED FOR TREATMENT OF E.COLI UTI, ACUTE ON CHRONIC RENAL FAILURE, AND HYPERKALEMIA. TODAY, SHE IS ALERT AND ORIENTED, LYING IN BED ON MORNING ROUNDS. SHE CONTINUES WITH WEAKNESS AND ABDOMINAL PAIN TODAY. ON EXAMINATION, HEART IS REGULAR IN RATE AND RHYTHM. BILATERAL LUNGS ARE NOTED WITH DIMINISHED LUNG SOUNDS THROUGHOUT. ABDOMEN IS ROUND, SOFT, AND NOTED WITH SUPRAPUBIC TENDERNESS. NORMAL BOWEL SOUNDS NOTED IN ALL QUADRANTS. HER VITALS THIS MORNING ARE: 97.9-80-18-99%-144/66. LABS WERE OBTAINED. ABNORMAL LAB VALUES INCLUDE THE FOLLOWING: WBC 12.7, RBC 3.21, HGB 10.3, HCT 31.2, CHLORIDE 108, BUN 60, CREATININE 1.61, GLUCOSE 249, CALCIUM 8.3, ALBUMIN 2.7. BLOOD CULTURES REPORT GROWTH OF GRAM NEGATIVE RODS. CHEST XRAY REVEALED: CARDIOMEGALY WITHOUT CHF. NO DEFINITE INFILTRATES. SHE IS CURRENTLY RECEIVING IV ZOSYN, NS AT 100ML/HR, AND HOME MEDICATIONS WERE RESUMED. WE WILL CONTINUE WITH CURRENT PLAN OF CARE TODAY. OTHERWISE, WE WILL FOLLOW UP WITH AM LABS AND CONTINUE TO MONITOR. - Past Medical Family Social History Past Med/Fam/Surg Hx: No changes since H&P Allergies: Allergies ezetimibe [From Zetia] Allergy (Verified 09/16/19 20:38) Influenza Virus Vaccines Allergy (Verified 09/16/19 20:38) Penicillins Allergy (Verified 09/16/19 20:38) pneumococcal vaccine Allergy (Verified 09/16/19 20:38) ropinirole [From Requip] Allergy (Verified 09/16/19 20:38) - Review of Systems ROS: No change since H&P - Vital Signs and I&O's Vital Signs: Temperature 98.6 F Pulse Rate [Brachial] 75 Pulse Rate 92 Respiratory Rate 18 Blood Pressure [Left Arm] 182/75 Blood Pressure [Right Arm] 137/62 Blood Pressure 187/75 O2 Sat by Pulse Oximetry 99 Intake and Output: Intake & Output 09/16/19 09/17/19 09/18/19 09/19/19 11:59 11:59 11:59 11:59 Intake Total 1380 / 1380 2375 / 2375 2420 / 2420 Balance 1380 / 1380 2375 / 2375 2420 / 2420 - Physical Exam Oriented: Normal Eyes: Normal Ear: Normal Nose: Normal Throat: Normal Respiratory: Generalized, Diminished Cardiovascular: Normal : Normal Auscultation: Bowel Sounds: Normal Palpation: Normal Tenderness: Suprapubic, Moderate. negative: Rebound, Guarding, Rigidity Skin: Decreased Turgur Musculoskeletal: Normal Psychiatric: Normal Mood Description: Calm Affect: Normal Speech Pattern: Clear, Appropriate - Laboratory and Diagnostics Result Diagrams: 09/19/19 05:56 09/19/19 05:56 Labs: 09/16/19 20:59 Blood Blood Culture - Final Escherichia Coli 09/16/19 20:54 Blood Blood Culture - Final Escherichia Coli Laboratory WBC 7.7 X10^3/uL (3.6-10.0) 09/19/19 05:56 RBC 2.83 X10^6/uL (3.5-5.4) L 09/19/19 05:56 Hgb 9.1 g/dL (12.0-16.0) L 09/19/19 05:56 Hct 27.6 % (36.0-47.0) L 09/19/19 05:56 MCV 97.6 fL (80.0-100.0) 09/19/19 05:56 MCH 32.2 pg (27.0-34.0) 09/19/19 05:56 MCHC 33.0 g/dL (33.0-35.0) 09/19/19 05:56 RDW 14.8 % (11.6-16.5) 09/19/19 05:56 Plt Count 197 X10^3/uL (150.0-450.0) 09/19/19 05:56 MPV 8.2 fL (7.4-11.0) 09/19/19 05:56 Neut % (Auto) 62.8 % (42.0-75.0) 09/19/19 05:56 Lymph % (Auto) 19.6 % (21.0-51.0) L 09/19/19 05:56 [place] % (Auto) 11.8 % (0.0-13.0) 09/19/19 05:56 Eos % (Auto) 4.8 % (0.9-2.9) H 09/19/19 05:56 Baso % (Auto) 1.0 % (0.2-1.0) 09/19/19 05:56 Neut # (Auto) 4.9 x10^3/uL (2.2-4.8) H 09/19/19 05:56 Lymph # (Auto) 1.5 X10^3/uL (1.3-2.9) 09/19/19 05:56 [place] # (Auto) 0.9 x10^3/uL (0.3-0.8) H 09/19/19 05:56 Eos # (Auto) 0.4 x10^3/uL (0.0-0.2) H 09/19/19 05:56 Baso # (Auto) 0.1 X10^3/uL (0.0-0.1) 09/19/19 05:56 Absolute Nucleated RBC 0.1 /100WBC 09/19/19 05:56 Sodium 143 mmol/L (136-145) 09/19/19 05:56 Corrected Sodium 143 mmol/L (136-145) 09/19/19 05:56 Potassium 4.6 mmol/L (3.5-5.1) 09/19/19 05:56 Chloride 112 mmol/L (98-107) H 09/19/19 05:56 Carbon Dioxide 22.8 mmol/L (21-32) 09/19/19 05:56 BUN 37 mg/dL (7-18) H 09/19/19 05:56 Creatinine 1.48 mg/dL (0.55-1.02) H 09/19/19 05:56 Est GFR (MDRD) Af Amer 43 (>60) L 09/19/19 05:56 Est GFR (MDRD) Non-Af 36 (>60) L 09/19/19 05:56 Glucose 112 mg/dL (65-99) H 09/19/19 05:56 POC Glucose (mg/dL) 114 mg/dL (65-99) H 09/19/19 05:01 Calcium 7.5 mg/dL (8.5-10.1) L 09/19/19 05:56 Corrected Calcium 9.0 mg/dL (8.5-10.1) 09/19/19 05:56 Total Bilirubin 0.20 mg/dL (0.2-1.0) 09/19/19 05:56 AST 24 Units/L (15-37) 09/19/19 05:56 ALT 17 Units/L (12-78) 09/19/19 05:56 Alkaline Phosphatase 79 Units/L (46-116) 09/19/19 05:56 Total Protein 5.6 g/dL (6.4-8.2) L 09/19/19 05:56 Albumin 2.1 g/dL (3.4-5.0) L 09/19/19 05:56 Globulin 3.5 g/dL (2.5-4.5) 09/19/19 05:56 Albumin/Globulin Ratio 0.6 Ratio (1.1-2.1) L 09/19/19 05:56 - Plan (1) E. coli UTI (urinary tract infection) Status: Acute Plan: IV FLUIDS, ZOSYN 2.25G IV TID, CONTINUE TO MONITOR (2) Renal failure (ARF), acute on chronic Status: Acute Qualifiers: Acute renal failure type: unspecified Chronic kidney disease stage: unspecified stage Qualified Code(s): N17.9 - Acute kidney failure, unspecified; N18.9 - Chronic kidney disease, unspecified Plan: IV FLUIDS, CONTINUE TO MONITOR (3) Hyperkalemia Status: Acute Plan: IV FLUIDS, CONTINUE TO MONITOR.
--- NOTE | 2019-09-19 11:19 | PCM.PROG ---
Progress Note - Progress Note for Day of Date of Exam: 09/19/19 - Subjective Subjective: WAS ADMITTED FOR TREATMENT OF E.COLI UTI, ACUTE ON CHRONIC RENAL FAILURE, AND HYPERKALEMIA. TODAY, SHE IS ALERT AND ORIENTED, LYING IN BED ON MORNING ROUNDS. SHE CONTINUES WITH WEAKNESS AND ABDOMINAL PAIN TODAY. ON EXAMINATION, HEART IS REGULAR IN RATE AND RHYTHM. BILATERAL LUNGS ARE NOTED WITH DIMINISHED LUNG SOUNDS THROUGHOUT. ABDOMEN IS ROUND, SOFT, AND NOTED WITH SUPRAPUBIC TENDERNESS. NORMAL BOWEL SOUNDS NOTED IN ALL QUADRANTS. HER VITALS THIS MORNING ARE: 98.6-75-20-99%-137/62. LABS WERE OBTAINED. ABNORMAL LAB VALUES INCLUDE THE FOLLOWING: RBC 2.83, HGB 9.1, HCT 27.6, CHLORIDE 112, BUN 37, CREATININE 1.48, GLUCOSE 112, CALCIUM 7.5, TOTAL PROTEIN 5.6, ALBUMIN 2.1. BLOOD CULTURES REPORT GROWTH OF E.COLI. CHEST XRAY REVEALED: MILD CARDIOMEGALY WITHOUT CHF. NO INFILTRATES. SHE IS CURRENTLY RECEIVING IV ZOSYN, NS AT 100ML/HR, AND HOME MEDICATIONS WERE RESUMED. WE WILL DISCONTINUE THE ZOSYN AND START INVANZ 1G IV DAILY. OTHERWISE, WE WILL CONTINUE WITH CURRENT PLAN OF CARE TODAY. WE WILL FOLLOW UP WITH AM LABS AND CONTINUE TO MONITOR. - Past Medical Family Social History Past Med/Fam/Surg Hx: No changes since H&P Allergies: Allergies ezetimibe [From Zetia] Allergy (Verified 09/16/19 20:38) Influenza Virus Vaccines Allergy (Verified 09/16/19 20:38) Penicillins Allergy (Verified 09/16/19 20:38) pneumococcal vaccine Allergy (Verified 09/16/19 20:38) ropinirole [From Requip] Allergy (Verified 09/16/19 20:38) - Review of Systems ROS: No change since H&P - Vital Signs and I&O's Vital Signs: Temperature 98.6 F Pulse Rate [Brachial] 75 Pulse Rate 92 Respiratory Rate 18 Blood Pressure [Left Arm] 182/75 Blood Pressure [Right Arm] 137/62 Blood Pressure 187/75 O2 Sat by Pulse Oximetry 99 Intake and Output: Intake & Output 09/16/19 09/17/19 09/18/19 09/19/19 11:59 11:59 11:59 11:59 Intake Total 1380 / 1380 2375 / 2375 2420 / 2420 Balance 1380 / 1380 2375 / 2375 2420 / 2420 - Physical Exam Oriented: Normal Eyes: Normal Ear: Normal Nose: Normal Throat: Normal Respiratory: Generalized, Diminished Cardiovascular: Normal : Normal Auscultation: Bowel Sounds: Normal Palpation: Normal Tenderness: Suprapubic, Moderate. negative: Rebound, Guarding, Rigidity Skin: Decreased Turgur Musculoskeletal: Normal Psychiatric: Normal Mood Description: Calm Affect: Normal Speech Pattern: Clear, Appropriate - Laboratory and Diagnostics Result Diagrams: 09/19/19 05:56 09/19/19 05:56 Labs: 09/16/19 20:59 Blood Blood Culture - Final Escherichia Coli 09/16/19 20:54 Blood Blood Culture - Final Escherichia Coli Laboratory WBC 7.7 X10^3/uL (3.6-10.0) 09/19/19 05:56 RBC 2.83 X10^6/uL (3.5-5.4) L 09/19/19 05:56 Hgb 9.1 g/dL (12.0-16.0) L 09/19/19 05:56 Hct 27.6 % (36.0-47.0) L 09/19/19 05:56 MCV 97.6 fL (80.0-100.0) 09/19/19 05:56 MCH 32.2 pg (27.0-34.0) 09/19/19 05:56 MCHC 33.0 g/dL (33.0-35.0) 09/19/19 05:56 RDW 14.8 % (11.6-16.5) 09/19/19 05:56 Plt Count 197 X10^3/uL (150.0-450.0) 09/19/19 05:56 MPV 8.2 fL (7.4-11.0) 09/19/19 05:56 Neut % (Auto) 62.8 % (42.0-75.0) 09/19/19 05:56 Lymph % (Auto) 19.6 % (21.0-51.0) L 09/19/19 05:56 [place] % (Auto) 11.8 % (0.0-13.0) 09/19/19 05:56 Eos % (Auto) 4.8 % (0.9-2.9) H 09/19/19 05:56 Baso % (Auto) 1.0 % (0.2-1.0) 09/19/19 05:56 Neut # (Auto) 4.9 x10^3/uL (2.2-4.8) H 09/19/19 05:56 Lymph # (Auto) 1.5 X10^3/uL (1.3-2.9) 09/19/19 05:56 [place] # (Auto) 0.9 x10^3/uL (0.3-0.8) H 09/19/19 05:56 Eos # (Auto) 0.4 x10^3/uL (0.0-0.2) H 09/19/19 05:56 Baso # (Auto) 0.1 X10^3/uL (0.0-0.1) 09/19/19 05:56 Absolute Nucleated RBC 0.1 /100WBC 09/19/19 05:56 Sodium 143 mmol/L (136-145) 09/19/19 05:56 Corrected Sodium 143 mmol/L (136-145) 09/19/19 05:56 Potassium 4.6 mmol/L (3.5-5.1) 09/19/19 05:56 Chloride 112 mmol/L (98-107) H 09/19/19 05:56 Carbon Dioxide 22.8 mmol/L (21-32) 09/19/19 05:56 BUN 37 mg/dL (7-18) H 09/19/19 05:56 Creatinine 1.48 mg/dL (0.55-1.02) H 09/19/19 05:56 Est GFR (MDRD) Af Amer 43 (>60) L 09/19/19 05:56 Est GFR (MDRD) Non-Af 36 (>60) L 09/19/19 05:56 Glucose 112 mg/dL (65-99) H 09/19/19 05:56 POC Glucose (mg/dL) 114 mg/dL (65-99) H 09/19/19 05:01 Calcium 7.5 mg/dL (8.5-10.1) L 09/19/19 05:56 Corrected Calcium 9.0 mg/dL (8.5-10.1) 09/19/19 05:56 Total Bilirubin 0.20 mg/dL (0.2-1.0) 09/19/19 05:56 AST 24 Units/L (15-37) 09/19/19 05:56 ALT 17 Units/L (12-78) 09/19/19 05:56 Alkaline Phosphatase 79 Units/L (46-116) 09/19/19 05:56 Total Protein 5.6 g/dL (6.4-8.2) L 09/19/19 05:56 Albumin 2.1 g/dL (3.4-5.0) L 09/19/19 05:56 Globulin 3.5 g/dL (2.5-4.5) 09/19/19 05:56 Albumin/Globulin Ratio 0.6 Ratio (1.1-2.1) L 09/19/19 05:56 - Plan (1) E. coli UTI (urinary tract infection) Status: Acute Plan: IV FLUIDS, INVANZ 1G IV DAILY, CONTINUE TO MONITOR (2) Renal failure (ARF), acute on chronic Status: Acute Qualifiers: Acute renal failure type: unspecified Chronic kidney disease stage: unspecified stage Qualified Code(s): N17.9 - Acute kidney failure, unspecified; N18.9 - Chronic kidney disease, unspecified Plan: IV FLUIDS, CONTINUE TO MONITOR (3) Hyperkalemia Status: Acute Plan: IV FLUIDS, CONTINUE TO MONITOR.
[2019-09-19] MEDS: SNACK - Diabetic Appropriate PO SCH (20:26)
[2019-09-19] MEDS: ZOCOR TAB 40 MG PO SCH (20:26)
[2019-09-19] MEDS: COLACE CAP 100 MG PO SCH (20:26)
[2019-09-19] MEDS: BENADRYL CAP/TAB 25 MG PO SCH (20:26)
[2019-09-19] MEDS: ELAVIL PO SCH (20:26)
[2019-09-19] MEDS: HumuLIN R SUBCUT PRN (20:27)
[2019-09-20] MEDS: NS 1000 ML 1,000 ML IV SCH ×3 (05:05→16:20)
[2019-09-20] MEDS: NORCO 10/325 TAB PO PRN ×3 (05:05→21:45)
[2019-09-20] MEDS ORDERED: D50W ABBOJECT SYR IV ONE (05:07)
[2019-09-20] MEDS ORDERED: D50W ABBOJECT SYR ONE (05:10)
[2019-09-20] MEDS: VOLTAREN 1 % GEL MULTI DOSE TUBE TOP SCH ×3 (05:17→21:11)
[2019-09-20 05:30] LABS: ALANINE AMINOTRANSFERASE 18 Units/L (12-78); ALBUMIN 2.1 g/dL (3.4-5.0); ALKALINE PHOSPHATASE 74 Units/L (46-116); ASPARTATE AMINO TRANSFERASE 18 Units/L (15-37); BLOOD UREA NITROGEN 28 mg/dL (7-18); CALCIUM 7.7 mg/dL (8.5-10.1); CARBON DIOXIDE 22.8 mmol/L (21-32); CHLORIDE 111 mmol/L (98-107); COR CA(FOR HYPOALB) 9.2 mg/dL (8.5-10.1); CREATININE 1.34 mg/dL (0.55-1.02); SODIUM 144 mmol/L (136-145); TOTAL PROTEIN 5.6 g/dL (6.4-8.2); eGFR NON BLACK RACES 40 (>60)
[2019-09-20 06:15] LABS: BASOPHILS # (AUTO) 0.1 X10^3/uL (0.0-0.1); BASOPHILS % (AUTO) 0.8 % (0.2-1.0); EOSINOPHILS # (AUTO) 0.4 x10^3/uL (0.0-0.2); EOSINOPHILS % (AUTO) 6.1 % (0.9-2.9); HEMATOCRIT 26.4 % (36.0-47.0); HEMOGLOBIN 8.7 g/dL (12.0-16.0); LYMPHOCYTES # (AUTO) 1.5 X10^3/uL (1.3-2.9); LYMPHOCYTES % (AUTO) 23.7 % (21.0-51.0); MEAN CORPUSCULAR HEMOGLOBIN 32.1 pg (27.0-34.0); MEAN CORPUSCULAR HGB CONC 32.8 g/dL (33.0-35.0); MEAN PLATELET VOLUME 8.6 fL (7.4-11.0); MONOCYTES # (AUTO) 0.7 x10^3/uL (0.3-0.8); MONOCYTES % (AUTO) 11.2 % (0.0-13.0); NEUTROPHILS # (AUTO) 3.7 x10^3/uL (2.2-4.8); NEUTROPHILS % (AUTO) 58.2 % (42.0-75.0); PLATELET COUNT 198 X10^3/uL (150.0-450.0); RED CELL DISTRIBUTION WIDTH 14.5 % (11.6-16.5); WHITE BLOOD COUNT 6.3 X10^3/uL (3.6-10.0)
--- NOTE | 2019-09-20 08:20 | RAD ---
HISTORYSOBSTUDYCHEST, 1 VIEWCOMPARISONDecember 2018TECHNIQUEPortable chestFINDINGSCardiomegaly is observed with central vascular congestion and perihilar edema. No consolidation is identified. No significant pleural fluid collections are observed. There is no free air or pneumothoraxIMPRESSIONCardiomegaly with central vascular congestion and developing perihilar edema consistent with CHF.Electronically signed by: CLYDE ERWIN (Sep 20, 2019 08:19:20)
[2019-09-20] MEDS: LEVEMIR SC SCH (08:59)
[2019-09-20] MEDS: PLAVIX PO SCH (09:00)
[2019-09-20] MEDS: VITAMIN D3 PO SCH (09:00)
[2019-09-20] MEDS: EFFEXOR XR 37.5 MG CAP PO SCH (09:00)
[2019-09-20] MEDS: INVANZ INJ 1 GM VIAL 1 GM in NS 100 ML IV + SPIKE MINIBAG* 100 ML IV SCH (09:00)
[2019-09-20] MEDS: VITAMIN C PO SCH (09:01)
[2019-09-20] MEDS: ZINC SULFATE PO SCH (09:01)
[2019-09-20] MEDS: PROTONIX TAB 40 MG PO SCH (09:01)
[2019-09-20] MEDS: COREG TAB 3.125 MG PO SCH ×2 (09:01→21:03)
[2019-09-20] MEDS: HEMOCYTE-PLUS PO SCH (09:01)
[2019-09-20] MEDS: SENOKOT PO SCH ×2 (09:01→21:03)
[2019-09-20] MEDS: TAB-A-VITE PO SCH (09:01)
[2019-09-20] MEDS: LYRICA CAP 75 mg PO SCH ×2 (09:02→21:03)
[2019-09-20] MEDS: LOVENOX INJ 30 MG SYR SC SCH (10:55)
--- NOTE | 2019-09-20 13:51 | PCM.PROG ---
Progress Note Progress Note for Day of Date of Exam: 09/20/19 Subjective Subjective: Patient admitted for ESBL UTI with bacteremia, acute on chronic renal failure, hyperkalemia. She is doing well this morning. She is currently on Invanz for ESBL UTI, blood cultures x 2 positive for E.coli. Will order repeat blood cultures and echo to rule out vegetation. Renal function improving, Cr trending down. Patient does have anemia. Continue current care, follow up AM labs. Also has ankle wound that has been draining, sent for culture. Past Medical Family Social History Past Med/Fam/Surg Hx: No changes since H&P Allergies: Allergies ezetimibe [From Zetia] Allergy (Verified 09/16/19 20:38) Influenza Virus Vaccines Allergy (Verified 09/16/19 20:38) Penicillins Allergy (Verified 09/16/19 20:38) pneumococcal vaccine Allergy (Verified 09/16/19 20:38) ropinirole [From Requip] Allergy (Verified 09/16/19 20:38) Review of Systems ROS: No change since H&P Vital Signs and I&O's Vital Signs: Temperature 98.3 F Pulse Rate [Brachial] 84 Pulse Rate 92 Respiratory Rate 18 Blood Pressure [Left Arm] 182/75 Blood Pressure [Right Arm] 142/59 Blood Pressure 187/75 O2 Sat by Pulse Oximetry 95 Intake and Output: Intake & Output 09/17/19 09/18/19 09/19/19 09/20/19 23:59 23:59 23:59 23:59 Intake Total 3535 / 3535 2370 / 2370 2049 0 / 0 Balance 3535 / 3535 2370 / 2370 2049 0 / 0 Physical Exam Oriented: Normal Eyes: Normal Ear: Normal Nose: Normal Throat: Normal Respiratory: Generalized and Diminished Cardiovascular: Normal : Normal Auscultation: Bowel Sounds: Normal Tenderness: Suprapubic and Moderate Skin: Wound (right ankle wound, drainage noted ) Musculoskeletal: Normal Psychiatric: Normal Mood Description: Calm Affect: Normal Speech Pattern: Clear and Appropriate Laboratory and Diagnostics Result Diagrams: 09/20/19 04:09 09/20/19 04:09 Labs: 09/20/19 09:15 Foot - Right Gram Stain - Final 09/16/19 20:59 Blood Blood Culture - Final Escherichia Coli 09/16/19 20:54 Blood Blood Culture - Final Escherichia Coli Laboratory WBC 6.3 X10^3/uL (3.6-10.0) 09/20/19 04:09 RBC 2.70 X10^6/uL (3.5-5.4) L 09/20/19 04:09 Hgb 8.7 g/dL (12.0-16.0) L 09/20/19 04:09 Hct 26.4 % (36.0-47.0) L 09/20/19 04:09 MCV 98.0 fL (80.0-100.0) 09/20/19 04:09 MCH 32.1 pg (27.0-34.0) 09/20/19 04:09 MCHC 32.8 g/dL (33.0-35.0) L 09/20/19 04:09 RDW 14.5 % (11.6-16.5) 09/20/19 04:09 Plt Count 198 X10^3/uL (150.0-450.0) 09/20/19 04:09 MPV 8.6 fL (7.4-11.0) 09/20/19 04:09 Neut % (Auto) 58.2 % (42.0-75.0) 09/20/19 04:09 Lymph % (Auto) 23.7 % (21.0-51.0) 09/20/19 04:09 [place] % (Auto) 11.2 % (0.0-13.0) 09/20/19 04:09 Eos % (Auto) 6.1 % (0.9-2.9) H 09/20/19 04:09 Baso % (Auto) 0.8 % (0.2-1.0) 09/20/19 04:09 Neut # (Auto) 3.7 x10^3/uL (2.2-4.8) 09/20/19 04:09 Lymph # (Auto) 1.5 X10^3/uL (1.3-2.9) 09/20/19 04:09 [place]on # (Auto) 0.7 x10^3/uL (0.3-0.8) 09/20/19 04:09 Eos # (Auto) 0.4 x10^3/uL (0.0-0.2) H 09/20/19 04:09 Baso # (Auto) 0.1 X10^3/uL (0.0-0.1) 09/20/19 04:09 Absolute Nucleated RBC 0.1 /100WBC 09/20/19 04:09 Sodium 144 mmol/L (136-145) 09/20/19 04:09 Corrected Sodium TNP 09/20/19 04:09 Potassium 4.4 mmol/L (3.5-5.1) 09/20/19 04:09 Chloride 111 mmol/L (98-107) H 09/20/19 04:09 Carbon Dioxide 22.8 mmol/L (21-32) 09/20/19 04:09 BUN 28 mg/dL (7-18) H 09/20/19 04:09 Creatinine 1.34 mg/dL (0.55-1.02) H 09/20/19 04:09 Est GFR (MDRD) Af Amer 48 (>60) L 09/20/19 04:09 Est GFR (MDRD) Non-Af 40 (>60) L 09/20/19 04:09 Glucose 68 mg/dL (65-99) 09/20/19 04:09 POC Glucose (mg/dL) 52 mg/dL (65-99) L 09/20/19 10:58 Calcium 7.7 mg/dL (8.5-10.1) L 09/20/19 04:09 Corrected Calcium 9.2 mg/dL (8.5-10.1) 09/20/19 04:09 Total Bilirubin 0.10 mg/dL (0.2-1.0) L 09/20/19 04:09 AST 18 Units/L (15-37) 09/20/19 04:09 ALT 18 Units/L (12-78) 09/20/19 04:09 Alkaline Phosphatase 74 Units/L (46-116) 09/20/19 04:09 Total Protein 5.6 g/dL (6.4-8.2) L 09/20/19 04:09 Albumin 2.1 g/dL (3.4-5.0) L 09/20/19 04:09 Globulin 3.5 g/dL (2.5-4.5) 09/20/19 04:09 Albumin/Globulin Ratio 0.6 Ratio (1.1-2.1) L 09/20/19 04:09 Plan (1) E. coli UTI (urinary tract infection): Status: Acute Plan: IV FLUIDS, INVANZ 1G IV DAILY, CONTINUE TO MONITOR (2) Renal failure (ARF), acute on chronic: Status: Acute Qualifiers: Acute renal failure type: unspecified Chronic kidney disease stage: unspecified stage Qualified Code(s): N17.9 - Acute kidney failure, unspecified; N18.9 - Chronic kidney disease, unspecified Plan: IV FLUIDS, CONTINUE TO MONITOR (3) Hyperkalemia: Status: Acute Plan: IV FLUIDS, CONTINUE TO MONITOR. (4) E coli bacteremia: Status: Acute (5) Ankle wound: Status: Acute (6) Urinary tract infection due to extended-spectrum beta lactamase (ESBL) producing Escherichia coli: Status: Acute
[2019-09-20] MEDS: SNACK - Diabetic Appropriate PO SCH (20:30)
[2019-09-20] MEDS: ELAVIL PO SCH (21:03)
[2019-09-20] MEDS: BENADRYL CAP/TAB 25 MG PO SCH (21:03)
[2019-09-20] MEDS: COLACE CAP 100 MG PO SCH (21:03)
[2019-09-20] MEDS: ZOCOR TAB 40 MG PO SCH (21:03)
[2019-09-21] MEDS: VOLTAREN 1 % GEL MULTI DOSE TUBE TOP SCH ×3 (05:15→22:17)
[2019-09-21] MEDS: NS 1000 ML 1,000 ML IV SCH ×3 (05:15→19:32)
[2019-09-21 06:16] LABS: BASOPHILS % (AUTO) 0.7 % (0.2-1.0); EOSINOPHILS # (AUTO) 0.3 x10^3/uL (0.0-0.2); EOSINOPHILS % (AUTO) 5.6 % (0.9-2.9); HEMATOCRIT 26.6 % (36.0-47.0); HEMOGLOBIN 8.7 g/dL (12.0-16.0); LYMPHOCYTES # (AUTO) 1.4 X10^3/uL (1.3-2.9); LYMPHOCYTES % (AUTO) 23.1 % (21.0-51.0); MEAN CORPUSCULAR HEMOGLOBIN 31.8 pg (27.0-34.0); MEAN CORPUSCULAR HGB CONC 32.9 g/dL (33.0-35.0); MEAN CORPUSCULAR VOLUME 96.8 fL (80.0-100.0); MEAN PLATELET VOLUME 7.9 fL (7.4-11.0); MONOCYTES # (AUTO) 0.7 x10^3/uL (0.3-0.8); MONOCYTES % (AUTO) 11.1 % (0.0-13.0); NEUTROPHILS # (AUTO) 3.7 x10^3/uL (2.2-4.8); NEUTROPHILS % (AUTO) 59.5 % (42.0-75.0); PLATELET COUNT 183 X10^3/uL (150.0-450.0); RED BLOOD COUNT 2.75 X10^6/uL (3.5-5.4); RED CELL DISTRIBUTION WIDTH 14.3 % (11.6-16.5); WHITE BLOOD COUNT 6.2 X10^3/uL (3.6-10.0)
[2019-09-21 06:20] LABS: BLOOD UREA NITROGEN 24 mg/dL (7-18); CALCIUM 7.8 mg/dL (8.5-10.1); CARBON DIOXIDE 22.2 mmol/L (21-32); CHLORIDE 113 mmol/L (98-107); CREATININE 1.29 mg/dL (0.55-1.02); SODIUM 144 mmol/L (136-145); eGFR NON BLACK RACES 42 (>60)
[2019-09-21] MEDS: INVANZ INJ 1 GM VIAL 1 GM in NS 100 ML IV + SPIKE MINIBAG* 100 ML IV SCH (08:31)
[2019-09-21] MEDS: LYRICA CAP 75 mg PO SCH ×2 (08:32→20:54)
[2019-09-21] MEDS: VITAMIN D3 PO SCH (08:32)
[2019-09-21] MEDS: PROTONIX TAB 40 MG PO SCH (08:32)
[2019-09-21] MEDS: HEMOCYTE-PLUS PO SCH (08:33)
[2019-09-21] MEDS: TAB-A-VITE PO SCH (08:33)
[2019-09-21] MEDS: EFFEXOR XR 37.5 MG CAP PO SCH (08:33)
[2019-09-21] MEDS: VITAMIN C PO SCH (08:33)
[2019-09-21] MEDS: SENOKOT PO SCH ×2 (08:33→20:55)
[2019-09-21] MEDS: PLAVIX PO SCH (08:33)
[2019-09-21] MEDS: COREG TAB 3.125 MG PO SCH ×2 (08:34→20:54)
[2019-09-21] MEDS: ZINC SULFATE PO SCH (08:34)
[2019-09-21] MEDS: LEVEMIR SC SCH (08:38)
--- NOTE | 2019-09-21 10:48 | PCM.PROG ---
Progress Note Progress Note for Day of Date of Exam: 09/21/19 Subjective Subjective: Patient admitted for ESBL UTI with bacteremia, acute on chronic renal failure, hyperkalemia. She reports feeling a little better this morning. She is currently on Invanz for ESBL UTI, blood cultures x 2 positive for E.coli. Repeat blood cultures pending. She is scheduled to have echo today to rule out vegetation. Renal function improving, Cr trending down. Patient does have anemia, Hgb stable today. Pt has pressure wound on ankle wound that was initially draining now is not and looks clean and dry, prelim culture coagulase negative staph, likely from skin, will just monitor and provide wound care. Her CXR yesterday did show central vascular congestion and developing perihilar edema. She reports no difficulty breathing, but does have some lower extremity edema, will give one dose of lasix. Continue current care, follow up AM labs. Past Medical Family Social History Past Med/Fam/Surg Hx: No changes since H&P Allergies: Allergies ezetimibe [From Zetia] Allergy (Verified 09/16/19 20:38) Influenza Virus Vaccines Allergy (Verified 09/16/19 20:38) Penicillins Allergy (Verified 09/16/19 20:38) pneumococcal vaccine Allergy (Verified 09/16/19 20:38) ropinirole [From Requip] Allergy (Verified 09/16/19 20:38) Review of Systems ROS: No change since H&P Vital Signs and I&O's Vital Signs: Temperature 98.8 F Pulse Rate [Brachial] 68 Pulse Rate 92 Respiratory Rate 18 Blood Pressure [Left Arm] 162/51 Blood Pressure [Right Arm] 157/57 Blood Pressure 187/75 O2 Sat by Pulse Oximetry 98 Intake and Output: Intake & Output 09/18/19 09/19/19 09/20/19 09/21/19 23:59 23:59 23:59 23:59 Intake Total 2370 / 2370 2049 2690 / 2690 0 / 0 Balance 2370 / 2370 2049 / 2690 0 / 0 Physical Exam Oriented: Normal Eyes: Normal Ear: Normal Nose: Normal Throat: Normal Respiratory: Generalized and Diminished Cardiovascular: Normal : Normal Auscultation: Bowel Sounds: Normal Tenderness: Suprapubic Skin: Wound (right heel pressure wound) Musculoskeletal: Normal Psychiatric: Normal Mood Description: Calm Affect: Normal Speech Pattern: Clear and Appropriate Laboratory and Diagnostics Result Diagrams: 09/21/19 05:42 09/21/19 05:42 Labs: 09/20/19 09:15 Foot - Right Gram Stain - Final 09/20/19 09:15 Foot - Right Wound Culture - Preliminary 09/16/19 20:59 Blood Blood Culture - Final Escherichia Coli 09/16/19 20:54 Blood Blood Culture - Final Escherichia Coli Laboratory WBC 6.2 X10^3/uL (3.6-10.0) 09/21/19 05:42 RBC 2.75 X10^6/uL (3.5-5.4) L 09/21/19 05:42 Hgb 8.7 g/dL (12.0-16.0) L 09/21/19 05:42 Hct 26.6 % (36.0-47.0) L 09/21/19 05:42 MCV 96.8 fL (80.0-100.0) 09/21/19 05:42 MCH 31.8 pg (27.0-34.0) 09/21/19 05:42 MCHC 32.9 g/dL (33.0-35.0) L 09/21/19 05:42 RDW 14.3 % (11.6-16.5) 09/21/19 05:42 Plt Count 183 X10^3/uL (150.0-450.0) 09/21/19 05:42 MPV 7.9 fL (7.4-11.0) 09/21/19 05:42 Neut % (Auto) 59.5 % (42.0-75.0) 09/21/19 05:42 Lymph % (Auto) 23.1 % (21.0-51.0) 09/21/19 05:42 [facility] % (Auto) 11.1 % (0.0-13.0) 09/21/19 05:42 Eos % (Auto) 5.6 % (0.9-2.9) H 09/21/19 05:42 Baso % (Auto) 0.7 % (0.2-1.0) 09/21/19 05:42 Neut # (Auto) 3.7 x10^3/uL (2.2-4.8) 09/21/19 05:42 Lymph # (Auto) 1.4 X10^3/uL (1.3-2.9) 09/21/19 05:42 [facility] # (Auto) 0.7 x10^3/uL (0.3-0.8) 09/21/19 05:42 Eos # (Auto) 0.3 x10^3/uL (0.0-0.2) H 09/21/19 05:42 Baso # (Auto) 0.0 X10^3/uL (0.0-0.1) 09/21/19 05:42 Absolute Nucleated RBC 0.0 /100WBC 09/21/19 05:42 Sodium 144 mmol/L (136-145) 09/21/19 05:42 Corrected Sodium TNP 09/21/19 05:42 Potassium 4.4 mmol/L (3.5-5.1) 09/21/19 05:42 Chloride 113 mmol/L (98-107) H 09/21/19 05:42 Carbon Dioxide 22.2 mmol/L (21-32) 09/21/19 05:42 BUN 24 mg/dL (7-18) H 09/21/19 05:42 Creatinine 1.29 mg/dL (0.55-1.02) H 09/21/19 05:42 Est GFR (MDRD) Af Amer 51 (>60) L 09/21/19 05:42 Est GFR (MDRD) Non-Af 42 (>60) L 09/21/19 05:42 Glucose 96 mg/dL (65-99) 09/21/19 05:42 POC Glucose (mg/dL) 87 mg/dL (65-99) 09/21/19 05:27 Calcium 7.8 mg/dL (8.5-10.1) L 09/21/19 05:42 Corrected Calcium 9.2 mg/dL (8.5-10.1) 09/20/19 04:09 Total Bilirubin 0.10 mg/dL (0.2-1.0) L 09/20/19 04:09 AST 18 Units/L (15-37) 09/20/19 04:09 ALT 18 Units/L (12-78) 09/20/19 04:09 Alkaline Phosphatase 74 Units/L (46-116) 09/20/19 04:09 Total Protein 5.6 g/dL (6.4-8.2) L 09/20/19 04:09 Albumin 2.1 g/dL (3.4-5.0) L 09/20/19 04:09 Globulin 3.5 g/dL (2.5-4.5) 09/20/19 04:09 Albumin/Globulin Ratio 0.6 Ratio (1.1-2.1) L 09/20/19 04:09 Plan (1) E. coli UTI (urinary tract infection): Status: Acute Plan: IV FLUIDS, INVANZ 1G IV DAILY, CONTINUE TO MONITOR UrineCX;ESBL E coli (2) E coli bacteremia: Status: Acute Plan: Echo today BloodCx 2/2 ESBL E. coli (3) Renal failure (ARF), acute on chronic: Status: Acute Qualifiers: Acute renal failure type: unspecified Chronic kidney disease stage: unspecified stage Qualified Code(s): N17.9 - Acute kidney failure, unspecified; N18.9 - Chronic kidney disease, unspecified Plan: IV FLUIDS, CONTINUE TO MONITOR (4) Hyperkalemia: Status: Acute Plan: IV FLUIDS, CONTINUE TO MONITOR. (5) Ankle wound: Status: Acute Plan: Pressure wound on R ankle, dressing and tegaderm applied. Wound culture + coagulase negative staph, wound appears clean and dry, likely from skin. (6) Urinary tract infection due to extended-spectrum beta lactamase (ESBL) producing Escherichia coli: Status: Acute
[2019-09-21] MEDS ORDERED: LASIX PO ONE (11:03)
[2019-09-21] MEDS: NORCO 10/325 TAB PO PRN ×2 (11:45→20:55)
[2019-09-21] MEDS ORDERED: BUTT CREAM (COMPOUND) ONE (14:58)
[2019-09-21] MEDS: SNACK - Diabetic Appropriate PO SCH (20:15)
[2019-09-21] MEDS: ELAVIL PO SCH (20:54)
[2019-09-21] MEDS: ZOCOR TAB 40 MG PO SCH (20:54)
[2019-09-21] MEDS: MERREM VIAL 1 G in NS 100 ML IV + SPIKE MINIBAG* 100 ML IV SCH (20:55)
[2019-09-21] MEDS: COLACE CAP 100 MG PO SCH (20:55)
[2019-09-21] MEDS: BENADRYL CAP/TAB 25 MG PO SCH (20:55)
[2019-09-22] MEDS: VOLTAREN 1 % GEL MULTI DOSE TUBE TOP SCH (05:38)
[2019-09-22 06:08] LABS: BASOPHILS % (AUTO) 0.7 % (0.2-1.0); CALCIUM 7.6 mg/dL (8.5-10.1); CARBON DIOXIDE 22.3 mmol/L (21-32); CREATININE 1.35 mg/dL (0.55-1.02); EOSINOPHILS # (AUTO) 0.3 x10^3/uL (0.0-0.2); EOSINOPHILS % (AUTO) 5.4 % (0.9-2.9); HEMATOCRIT 26.5 % (36.0-47.0); HEMOGLOBIN 8.7 g/dL (12.0-16.0); LYMPHOCYTES # (AUTO) 1.4 X10^3/uL (1.3-2.9); LYMPHOCYTES % (AUTO) 23.4 % (21.0-51.0); MEAN CORPUSCULAR HEMOGLOBIN 31.8 pg (27.0-34.0); MEAN CORPUSCULAR VOLUME 96.3 fL (80.0-100.0); MONOCYTES # (AUTO) 0.7 x10^3/uL (0.3-0.8); MONOCYTES % (AUTO) 11.1 % (0.0-13.0); NEUTROPHILS # (AUTO) 3.6 x10^3/uL (2.2-4.8); NEUTROPHILS % (AUTO) 59.4 % (42.0-75.0); PLATELET COUNT 178 X10^3/uL (150.0-450.0); RED BLOOD COUNT 2.75 X10^6/uL (3.5-5.4); RED CELL DISTRIBUTION WIDTH 14.1 % (11.6-16.5); WHITE BLOOD COUNT 6.1 X10^3/uL (3.6-10.0)
[2019-09-22 08:19] VITALS: BP 175/75
[2019-09-22] MEDS: LEVEMIR SC SCH (08:25)
[2019-09-22] MEDS: NS 1000 ML 1,000 ML IV SCH (08:25)
[2019-09-22] MEDS: MERREM VIAL 1 G in NS 100 ML IV + SPIKE MINIBAG* 100 ML IV SCH (08:26)
[2019-09-22] MEDS: VITAMIN D3 PO SCH (08:26)
[2019-09-22] MEDS: PLAVIX PO SCH (08:27)
[2019-09-22] MEDS: HEMOCYTE-PLUS PO SCH (08:27)
[2019-09-22] MEDS: LYRICA CAP 75 mg PO SCH (08:27)
[2019-09-22] MEDS: TAB-A-VITE PO SCH (08:28)
[2019-09-22] MEDS: PROTONIX TAB 40 MG PO SCH (08:28)
[2019-09-22] MEDS: EFFEXOR XR 37.5 MG CAP PO SCH (08:28)
[2019-09-22] MEDS: SENOKOT PO SCH (08:28)
[2019-09-22] MEDS: COREG TAB 3.125 MG PO SCH (08:28)
[2019-09-22] MEDS: VITAMIN C PO SCH (08:29)
[2019-09-22] MEDS: ZINC SULFATE PO SCH (08:29)
--- NOTE | 2019-09-22 09:34 | W.DIS.FURT ---
Summary of Discharge Discharge Summary of Date Date of Exam: 09/22/19 Admission Date Date of Admission: 09/16/19 Admission Diagnosis Hospital Course: Pt is a 84 yo f admitted for ESBL UTI with bacteremia, acute on chronic renal failure, hyperkalemia. She was treated with Invanz for ESBL UTI, blood cultures x 2 positive for E.coli. Repeat blood cultures negative. Echo was performed and ruled out vegetations. Renal function improved with Cr trending down. No abnormalities on physical exam. Pt vitals stable on discharge. She was discharged back to nursing facility with 10 day course of IV Meropenem to complete treatment. Vital Signs: Vital Signs (72 hours) 09/19/19 10:11 09/19/19 12:00 09/19/19 16:00 Temperature 98.0 F 97.8 F Pulse Rate [Brachial] 76 66 Pulse Rate [Left Brachial] Respiratory Rate 18 20 20 Blood Pressure [Left Arm] Blood Pressure [Right Arm] 183/66 150/66 O2 Sat by Pulse Oximetry 97 98 09/19/19 20:00 09/19/19 20:34 09/19/19 21:34 Temperature 98.4 F Pulse Rate [Brachial] 69 Pulse Rate [Left Brachial] Respiratory Rate 20 20 18 Blood Pressure [Left Arm] Blood Pressure [Right Arm] 147/65 O2 Sat by Pulse Oximetry 97 09/19/19 23:43 09/20/19 04:00 09/20/19 05:05 Temperature 98.1 F 97.9 F Pulse Rate [Brachial] 64 68 Pulse Rate [Left Brachial] Respiratory Rate 16 18 18 Blood Pressure [Left Arm] Blood Pressure [Right Arm] 127/58 141/60 O2 Sat by Pulse Oximetry 98 99 09/20/19 06:05 09/20/19 08:00 09/20/19 12:00 Temperature 98.3 F 98.1 F Pulse Rate [Brachial] 84 68 Pulse Rate [Left Brachial] Respiratory Rate 18 18 18 Blood Pressure [Left Arm] Blood Pressure [Right Arm] 142/59 157/57 O2 Sat by Pulse Oximetry 95 98 09/20/19 13:20 09/20/19 14:20 09/20/19 16:00 Temperature 98.9 F Pulse Rate [Brachial] 68 Pulse Rate [Left Brachial] Respiratory Rate 18 18 18 Blood Pressure [Left Arm] 161/75 Blood Pressure [Right Arm] O2 Sat by Pulse Oximetry 99 09/20/19 20:00 09/20/19 21:45 09/20/19 22:45 Temperature 98.7 F Pulse Rate [Brachial] 72 Pulse Rate [Left Brachial] Respiratory Rate 18 18 18 Blood Pressure [Left Arm] 159/67 Blood Pressure [Right Arm] O2 Sat by Pulse Oximetry 96 09/21/19 00:00 09/21/19 04:00 09/21/19 08:00 Temperature 98.5 F 97.8 F 98.8 F Pulse Rate [Brachial] 70 71 68 Pulse Rate [Left Brachial] Respiratory Rate 16 16 18 Blood Pressure [Left Arm] 175/50 148/56 162/51 Blood Pressure [Right Arm] O2 Sat by Pulse Oximetry 100 98 98 09/21/19 11:45 09/21/19 12:00 09/21/19 12:45 Temperature 98.1 F Pulse Rate [Brachial] 74 Pulse Rate [Left Brachial] Respiratory Rate 20 18 20 Blood Pressure [Left Arm] 185/84 Blood Pressure [Right Arm] O2 Sat by Pulse Oximetry 100 09/21/19 16:00 09/21/19 20:00 09/21/19 20:55 Temperature 98.7 F 99.1 F Pulse Rate [Brachial] 74 78 Pulse Rate [Left Brachial] Respiratory Rate 20 22 20 Blood Pressure [Left Arm] 147/63 162/68 Blood Pressure [Right Arm] O2 Sat by Pulse Oximetry 96 97 09/21/19 21:55 09/22/19 00:00 09/22/19 04:00 Temperature 99.2 F 97.9 F Pulse Rate [Brachial] 82 73 Pulse Rate [Left Brachial] Respiratory Rate 20 20 16 Blood Pressure [Left Arm] 188/74 179/73 Blood Pressure [Right Arm] O2 Sat by Pulse Oximetry 96 97 09/22/19 08:00 Temperature 98.3 F Pulse Rate [Brachial] Pulse Rate [Left Brachial] 76 Respiratory Rate 18 Blood Pressure [Left Arm] 175/75 Blood Pressure [Right Arm] O2 Sat by Pulse Oximetry 97 Labs: Laboratory Last Values WBC 6.1 X10^3/uL (3.6-10.0) 09/22/19 05:25 RBC 2.75 X10^6/uL (3.5-5.4) L 09/22/19 05:25 Hgb 8.7 g/dL (12.0-16.0) L 09/22/19 05:25 Hct 26.5 % (36.0-47.0) L 09/22/19 05:25 MCV 96.3 fL (80.0-100.0) 09/22/19 05:25 MCH 31.8 pg (27.0-34.0) 09/22/19 05:25 MCHC 33.0 g/dL (33.0-35.0) 09/22/19 05:25 RDW 14.1 % (11.6-16.5) 09/22/19 05:25 Plt Count 178 X10^3/uL (150.0-450.0) 09/22/19 05:25 MPV 8.0 fL (7.4-11.0) 09/22/19 05:25 Neut % (Auto) 59.4 % (42.0-75.0) 09/22/19 05:25 Lymph % (Auto) 23.4 % (21.0-51.0) 09/22/19 05:25 [place] % (Auto) 11.1 % (0.0-13.0) 09/22/19 05:25 Eos % (Auto) 5.4 % (0.9-2.9) H 09/22/19 05:25 Baso % (Auto) 0.7 % (0.2-1.0) 09/22/19 05:25 Neut # (Auto) 3.6 x10^3/uL (2.2-4.8) 09/22/19 05:25 Lymph # (Auto) 1.4 X10^3/uL (1.3-2.9) 09/22/19 05:25 [place] # (Auto) 0.7 x10^3/uL (0.3-0.8) 09/22/19 05:25 Eos # (Auto) 0.3 x10^3/uL (0.0-0.2) H 09/22/19 05:25 Baso # (Auto) 0.0 X10^3/uL (0.0-0.1) 09/22/19 05:25 Absolute Nucleated RBC 0.0 /100WBC 09/22/19 05:25 Sodium 143 mmol/L (136-145) 09/22/19 05:25 Corrected Sodium 145 mmol/L (136-145) 09/22/19 05:25 Potassium 4.1 mmol/L (3.5-5.1) 09/22/19 05:25 Chloride 112 mmol/L (98-107) H 09/22/19 05:25 Carbon Dioxide 22.3 mmol/L (21-32) 09/22/19 05:25 BUN 21 mg/dL (7-18) H 09/22/19 05:25 Creatinine 1.35 mg/dL (0.55-1.02) H 09/22/19 05:25 Est GFR (MDRD) Af Amer 48 (>60) L 09/22/19 05:25 Est GFR (MDRD) Non-Af 40 (>60) L 09/22/19 05:25 Glucose 169 mg/dL (65-99) H 09/22/19 05:25 POC Glucose (mg/dL) 162 mg/dL (65-99) H 09/22/19 05:31 Calcium 7.6 mg/dL (8.5-10.1) L 09/22/19 05:25 Corrected Calcium 9.2 mg/dL (8.5-10.1) 09/20/19 04:09 Total Bilirubin 0.10 mg/dL (0.2-1.0) L 09/20/19 04:09 AST 18 Units/L (15-37) 09/20/19 04:09 ALT 18 Units/L (12-78) 09/20/19 04:09 Alkaline Phosphatase 74 Units/L (46-116) 09/20/19 04:09 Total Protein 5.6 g/dL (6.4-8.2) L 09/20/19 04:09 Albumin 2.1 g/dL (3.4-5.0) L 09/20/19 04:09 Globulin 3.5 g/dL (2.5-4.5) 09/20/19 04:09 Albumin/Globulin Ratio 0.6 Ratio (1.1-2.1) L 09/20/19 04:09 Reason For Visit: ESBL E. 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 (Acute) Hypoalbuminemia (Acute) Pulmonary edema (Acute) MRSA (methicillin resistant Staphylococcus aureus) (Acute) Urinary tract infection (Acute) Dyspepsia (Acute) COPD with acute exacerbation (Acute) Myalgia (Acute) Bruising (Acute) Hypoalbuminemia (Acute) Acute prerenal azotemia (Acute) Prerenal azotemia (Acute) Lower extremity cellulitis (Acute) Bilateral lower leg cellulitis (Acute) Infection of wound due to methicillin resistant Staphylococcus aureus (MRSA) (Acute) Renal failure (Acute) Acute hyperkalemia (Acute) Acute renal failure (Acute) Abnormal EKG (Acute) Hyperglycemia due to type 2 diabetes mellitus (Acute) COPD (chronic obstructive pulmonary disease) (Acute) Dehydration (Acute) Hyperkalemia (Acute) Urinary tract infection (Acute) Pulmonary infiltrate (Acute) Hypomagnesemia (Acute) Hydrops of gallbladder (Acute) Cholelithiasis (Acute) Constipation (Acute) Chronic kidney disease (CKD) (Acute) Urinary tract infection due to extended-spectrum beta lactamase (ESBL) producing Escherichia coli (Acute) Acute hyperkalemia (Acute) Acute on chronic renal failure (Acute) Nausea & vomiting (Acute) E. coli UTI (urinary tract infection) (Acute) Renal failure (ARF), acute on chronic (Acute) Hyperkalemia (Acute) Diabetic ulcer of left great toe (Acute) Diabetes mellitus, type 2 (Chronic) CAD (coronary artery disease) (Chronic) GERD (gastroesophageal reflux disease) (Chronic) Renal insufficiency (Chronic) Insomnia (Chronic) Restless leg syndrome (Chronic) Hypertension (Chronic) CHF (congestive heart failure) (Chronic) Anemia (Chronic) Chronic renal failure (Chronic) Plan of Treatment: Continue with present treatment and follow up plan. Pt is to keep follow up appointment as instructed and take medications as ordered. Discharge Medications Discharge Medications: ezetimibe [From Zetia] Allergy (Verified 09/16/19 20:38) Influenza Virus Vaccines Allergy (Verified 09/16/19 20:38) Penicillins Allergy (Verified 09/16/19 20:38) pneumococcal vaccine Allergy (Verified 09/16/19 20:38) ropinirole [From Requip] Allergy (Verified 09/16/19 20:38) CONTINUE taking the following medications Collagen Plus Vitamin C 1 cap PO TID 09/16/19 [History] diclofenac sodium 1 % TOPICAL Q8H PRN 09/16/19 [History] Liqua Spen 09/20/19 [History] New Prescriptions meropenem 1 g IV Q8H 10 Days #30 ea 09/22/19 [Rx] Discharge Disposition Discharge Disposition: SNF at [facility]
[2019-09-22] MEDS: HumuLIN R SUBCUT PRN (11:26)
== END 2019-09-22 11:00 | DRG 690 ==
LOC: ER 20:27 → MED/SURG 21:47
PROVIDERS: ADMIT Internal Medicine; ATTEND Internal Medicine
CPT/HCPCS: 36415; 71010; 71045; 80048; 80053; 81001; 85025; 87040; 87070; 87075; 87077; 87086; 87088; 87186; 87205; 93306; 96365; 96374; 97162; 97166; 97535; 99284; A4216; A4222; J1335; J1650; J1815; J2185; J2543; J3490; J7030; J7050

== ENCOUNTER 2019-11-03 07:18 | Inpatient (IN) ==
[2019-11-03] MEDS ORDERED: ZOFRAN INJ 4 MG VIAL IVP ONE (07:38)
[2019-11-03] MEDS ORDERED: OFIRMEV IV 1000 MG VIAL 500 MG/50 ML VIAL IV STA (07:43)
[2019-11-03] MEDS ORDERED: NS 1000 ML 1,000 ML ONE (07:47)
[2019-11-03] MEDS ORDERED: ZOFRAN INJ 4 MG VIAL ONE (07:48)
--- NOTE | 2019-11-03 07:53 | DR.GENAD ---
HPI Time Seen Time Seen by Provider: 11/03/19 07:38 HPI Comment HPI Comment: Sent over from the NH not feeling well with a temp of 102; nh and nurse says she's confused but she answers questions for me with monosyllables; didn't feel well when she woke up this morning; says she is coughing and hurting and denies diarrhea and doesn't answer about n/v; at end of exam, she starts throwing up with no prior cough. PMH PMH Past Medical History: Anemia, Arthritis, CHF, Coronary Artery Disease, Depression, Diabetes, GERD, Hypertension and Renal Disease Past Surgical History: Yes Surgical History: Angioplasty/Stents, Hysterectomy and Ortho Surgery Family History Family Medical History: Coronary Artery Disease and Hypertension Social History Do you use any recreational Drugs:: No infectious screening Isolation: Standard ROS Review of Systems Constitutional: See HPI, Chills, Fever and Malaise Eyes: No Symptoms Reported Respiratoy: See HPI Cardiovascular: No Symptoms Reported Gastrointestinal/Abdominal: See HPI Neurological: See HPI Musculoskeletal: See HPI Integumentary: No Symptoms Reported Hematologic/Lymphatic: No Symptoms Reported Endocrine: No Symptoms Reported PE Vital Signs Vitals: Blood Pressure [Left Arm] 175/75 General Limitations: Altered Mental Status (questionable) and Physical Limitation General Appearance: Alert, In No Apparent Distress (slow, diminished response) and Obese Head Head Exam: Normal Inspection, Atraumatic and Normocephalic Eyes Eye exam: Normal Appearance Neck Neck Exam: Normal Inspection, Full ROM and Trachea Midline Chest Chest Inspection: Normal Inspection Respiratory Respiratory Exam: Bilateral: Clear to Auscultation (anteriorly) Cardiovascular Cardiovascular Exam: Normal Rhythm and Tachycardia Abdominal Exam Abdominal Exam: Distention (mild vs obesity, nontender with posiive bs) Extremities Extremities Exam: Other (shiny with scattered abrasions, rt partial amputation) Neurologic Neurological Exam: Alert Psychiatric Psychiatric Exam: Flat Affect Skin Skin Exam: Warm COURSE Treatment Treatment: 0800 pt turned over to Dr Cevallos Opioid Opioid Risk Tool Age (Juno box if 16-45): No History of Preadolescent Sexual Abuse: No Total: 0 Total Score Risk Category: Low Risk Copyright: Kishore BRIONES predicting aberrant behaviors
[2019-11-03] MEDS ORDERED: NS 1000 ML 1,000 ML IV SCH (08:00)
[2019-11-03 08:11] LABS: BASOPHILS # (AUTO) 0.1 X10^3/uL (0.0-0.1); BASOPHILS % (AUTO) 0.6 % (0.2-1.0); EOSINOPHILS # (AUTO) 0.3 x10^3/uL (0.0-0.2); EOSINOPHILS % (AUTO) 2.1 % (0.9-2.9); HEMATOCRIT 34.1 % (36.0-47.0); LYMPHOCYTES # (AUTO) 1.2 X10^3/uL (1.3-2.9); LYMPHOCYTES % (AUTO) 7.8 % (21.0-51.0); MEAN CORPUSCULAR HEMOGLOBIN 30.5 pg (27.0-34.0); MEAN CORPUSCULAR HGB CONC 32.2 g/dL (33.0-35.0); MEAN CORPUSCULAR VOLUME 94.8 fL (80.0-100.0); MEAN PLATELET VOLUME 7.4 fL (7.4-11.0); MONOCYTES # (AUTO) 0.8 x10^3/uL (0.3-0.8); NEUTROPHILS % (AUTO) 84.5 % (42.0-75.0); PLATELET COUNT 251 X10^3/uL (150.0-450.0); RED CELL DISTRIBUTION WIDTH 16.2 % (11.6-16.5); WHITE BLOOD COUNT 15.3 X10^3/uL (3.6-10.0)
[2019-11-03 08:18] LABS: ALBUMIN 3.3 g/dL (3.4-5.0); CALCIUM 8.6 mg/dL (8.5-10.1); CARBON DIOXIDE 18.8 mmol/L (21-32); COR CA(FOR HYPOALB) 9.2 mg/dL (8.5-10.1); CREATININE 2.37 mg/dL (0.55-1.02); TOTAL PROTEIN 7.5 g/dL (6.4-8.2)
[2019-11-03 08:27] LABS: LACTIC ACID 1.6 mmol/L (0.4-2.0)
[2019-11-03] MEDS ORDERED: NS IV ONE ×2 (08:35)
[2019-11-03] MEDS ORDERED: CALCIUM GLUCONATE IV ONE ×2 (08:35)
[2019-11-03] MEDS ORDERED: CALCIUM GLUCONATE 10% IV ONE (08:36)
[2019-11-03] MEDS ORDERED: NS 100 ML IV 100 ML IV ONE (08:38)
--- NOTE | 2019-11-03 08:39 | RAD ---
HISTORYCough, feverSTUDYCHEST, 1 [id number] heart is upper limits normal in size. No congestive heart failure is noted. No acute alveolar infiltrate or pleural effusions are identified. The bony thorax is unremarkable.IMPRESSIONNo significant abnormality identifiedElectronically signed by: USHA MANLEY (Nov 03, 2019 08:37:38)
--- NOTE | 2019-11-03 08:40 | RAD ---
HISTORYFever cough abdominal distention.STUDYKUBCOMPARISONNoneFINDINGSThere is diffuse degenerative disc disease and spondylosis i n the lumbar spine but no acute osseous lesions. Moderate arthritis is seen at both hips. There is no small-bowel or colonic distention observed. There is no evidence of ascites or mass. Moderate stool is seen in the lower colon. No abnormal calcifications are observed.IMPRESSIONNonspecific nonobstruct elizabeth bowel gas pattern. Moderate stool in the distal colon. No acute findings.Electronically signed by : JOSE KERR (Nov 03, 2019 08:38:43)
[2019-11-03 08:51] LABS: BILIRUBIN,URINE NEGATIVE (NEGATIVE); BLOOD/HEMOGLOBIN,URINE 4+ (NEGATIVE); GLUCOSE, URINE NEGATIVE (NEGATIVE); KETONES,URINE NEGATIVE (NEGATIVE); LEUKOCYTE ESTERASE ,URINE 3+ (NEGATIVE); NITRITES,URINE NEGATIVE (NEGATIVE); PROTEIN,URINE 3+ (NEGATIVE); UROBILINOGEN,URINE NORMAL (NORMAL)
[2019-11-03] MEDS ORDERED: CALCIUM CHLORIDE INJ IV ONE (08:53)
[2019-11-03] MEDS ORDERED: D50W ABBOJECT SYR ONE ×3 (09:04→14:18)
[2019-11-03] MEDS ORDERED: HumuLIN R ONE ×3 (09:05→14:19)
[2019-11-03 09:09] LABS: APPEARANCE,URINE CLOUDY (CLEAR); COLOR,URINE YELLOW (YELLOW); RBC,URINE TNTC /HPF (0-3); SQUAMOUS EPITHELIAL CELL,UR RARE /HPF (NEGATIVE)
[2019-11-03 09:10] LABS: BACTERIA,URINE 4+ /HPF (NEGATIVE)
[2019-11-03] MEDS ORDERED: D50W ABBOJECT SYR IV ONE ×3 (09:19→14:14)
[2019-11-03] MEDS ORDERED: CALCIUM CHLORIDE INJ IVP ONE (09:21)
[2019-11-03] MEDS ORDERED: HumuLIN R SUBCUT ONE (09:22)
--- NOTE | 2019-11-03 09:32 | DR.GENAD ---
HPI Time Seen Time Seen by Provider: 11/03/19 07:38 PCP Primary Care Physician: Dr Roland HPI Comment HPI Comment: PATIENT IS 84YR OLD FEMALE IN ER WITH CONFUSION, NAUSEA AND VOMITING, FEVER, ELEVATED BP AND LOW O2 SAT NOTED IN THE JAIL TODAY. DENIES CHEST PAIN OR ABDOMINAL PAIN. Complaint/Symptoms Chief Complaint Doctors Comments: FEVER, NAUSEA, VOMITING, CONFUSION AND ELEVATED BP. Chief Complaint:: Pt was brought from longterm with c/o sudden onset of cons ufion with episode of nausea and vomiting this am associated with temp 102.7. pt had manual bp 169/114 at longterm and o2 sat 91% on room air. Nurses notes reviewed Nurses Notes Review: Yes Source History Provided: [facility] Mode of Arrival Mode of Arrival: Stretcher Timing Onset of Chief Complaint: 11/03/19 Came on: Suddenly Duration Duration: Constant Duration: Hours Other History Other History: HIST. HTN AND DM PMH PMH Past Medical History: Yes Past Medical History: Anemia, Arthritis, CHF, Coronary Artery Disease, Depression, Diabetes, GERD, Hypertension and Renal Disease Past Medical History Comment: PVD, RLS Past Surgical History: Yes Surgical History: Angioplasty/Stents, Hysterectomy and Ortho Surgery Family History History of Family Medical Conditions: Yes Family Medical History: Coronary Artery Disease and Hypertension Social History Does patient currently use any type of tobacco product: No Have you used tobacco products in the last 12 months: No Type of Tobacco Use: None Does any household member use tobacco: No Alcohol Use: Rarely Do you use any recreational Drugs:: No Lives With: Other Lives Where: [facility] infectious screening In the last 2 months have you had wt loss of >10#?: NO Have you had fever, night sweats or hemotysis?: No Have you traveled outside the country in the last 6 months?: No Isolation: Standard ROS Review of Systems Constitutional: See HPI, Fever, Weakness and Fatigue Eyes: No Symptoms Reported and See HPI ENTM: No Symptoms Reported and See HPI Respiratoy: See HPI and Short of Breath; negative Wheezing Cardiovascular: No Symptoms Reported and See HPI Gastrointestinal/Abdominal: See HPI and Vomiting Genitourinary: No Symptoms Reported and See HPI Neurological: See HPI and Weakness Musculoskeletal: No Symptoms Reported and See HPI Integumentary: No Symptoms Reported and See HPI Hematologic/Lymphatic: No Symptoms Reported and See HPI Endocrine: No Symptoms Reported and See HPI Psychiatric: No Symptoms Reported and See HPI All Other Systems: Reviewed and Negative Unable to Obtain Due To: Altered mental status PE Vital Signs Vitals: Temperature 99.8 F Pulse Rate 93 Respiratory Rate 28 Blood Pressure [Left Arm] 175/75 Blood Pressure 113/49 O2 Sat by Pulse Oximetry 98 General Limitations: Altered Mental Status General Appearance: Alert and In Distress (ON EXERTION.) Head Head Exam: Normal Inspection and Atraumatic Eyes Eye exam: Normal Appearance and PERRL; negative Scleral Icterus and Conjunctival Injection ENT ENT Exam: Normal Exam, Normal Oropharynx, Normal External Ear Exam, TM's Normal Bilaterally and Other External Ear Exam: Normal External Inspection and Auricular Hematoma TM/Canal Exam: Bilateral: Normal Nose Exam: Normal Nose Exam; negative Sinus Tenderness and Nasal Deviation Mouth Exam: Normal Inspection Throat Exam: Normal Inspection; negative Tonsillar Erythema, Tonsillomegaly and Tonsillar Exudate Neck Neck Exam: Normal Inspection and Trachea Midline; negative Tenderness and Lym phadenopathy Chest Chest Inspection: Normal Inspection Respiratory Respiratory Exam: Normal Lung Sounds Bilat and Accessory Muscle Use; negative Chest Wall Tenderness Respiratory Exam: Bilateral: Rhonchi and Lower: Rhonchi Cardiovascular Cardiovascular Exam: Regular Rate, Normal Rhythm and Normal Heart Sounds Abdominal Exam Abdominal Exam: Normal Inspection, Normal Bowel Sounds and Soft; negative Tenderness Extremities Extremities Exam: Normal Capillary Refill and Edema; negative Tenderness and Calf Tenderness Back Back Exam: Normal Inspection; negative (R) CVA Tenderness and (L) CVA Tenderness Neurologic Neurological Exam: Alert and Oriented X3; negative Motor Sensory Deficit Psychiatric Psychiatric Exam: Normal Affect and Normal Mood Skin Skin Exam: Dry MDM Differential Diagnosis Differential Diagnosis: AMS, CVA, TIA, ELECTROLYTE BALANCE, FL, PNEUMONIA COURSE Treatment Treatment: SEE ORDERS. Consultation Consultation Comments: DISCUSSED PATIENT WITH DR. SUMNER, HE WILL ADMIT PATIENT. Education/Counseling Education/Counseling: Patient Educated On: Diagnosis ROR Labs Reviewed Laboratory Results Reviewed?: Yes Result Diagrams: 11/10/19 05:55 11/10/19 05:55 Laboratory: 11/03/19 07:50 Blood Blood Culture - Final 11/03/19 07:45 Blood Blood Culture - Final 11/03/19 08:14 Urine,Catheterized Urine Culture - Final Enterococcus Faecalis WBC 15.3 X10^3/uL (3.6-10.0) H 11/03/19 07:50 RBC 3.60 X10^6/uL (3.5-5.4) 11/03/19 07:50 Hgb 11.0 g/dL (12.0-16.0) L 11/03/19 07:50 Hct 34.1 % (36.0-47.0) L 11/03/19 07:50 MCV 94.8 fL (80.0-100.0) 11/03/19 07:50 MCH 30.5 pg (27.0-34.0) 11/03/19 07:50 MCHC 32.2 g/dL (33.0-35.0) L 11/03/19 07:50 RDW 16.2 % (11.6-16.5) 11/03/19 07:50 Plt Count 251 X10^3/uL (150.0-450.0) 11/03/19 07:50 MPV 7.4 fL (7.4-11.0) 11/03/19 07:50 Neut % (Auto) 84.5 % (42.0-75.0) H 11/03/19 07:50 Lymph % (Auto) 7.8 % (21.0-51.0) L 11/03/19 07:50 [place] % (Auto) 5.0 % (0.0-13.0) 11/03/19 07:50 Eos % (Auto) 2.1 % (0.9-2.9) 11/03/19 07:50 Baso % (Auto) 0.6 % (0.2-1.0) 11/03/19 07:50 Neut # (Auto) 13.0 x10^3/uL (2.2-4.8) H 11/03/19 07:50 Lymph # (Auto) 1.2 X10^3/uL (1.3-2.9) L 11/03/19 07:50 [place] # (Auto) 0.8 x10^3/uL (0.3-0.8) 11/03/19 07:50 Eos # (Auto) 0.3 x10^3/uL (0.0-0.2) H 11/03/19 07:50 Baso # (Auto) 0.1 X10^3/uL (0.0-0.1) 11/03/19 07:50 Absolute Nucleated RBC 0.0 /100WBC 11/03/19 07:50 Sodium 138 mmol/L (136-145) 11/03/19 13:21 Corrected Sodium 141 mmol/L (136-145) 11/03/19 13:21 Potassium 6.3 mmol/L (3.5-5.1) H* 11/03/19 13:21 Chloride 110 mmol/L (98-107) H 11/03/19 13:21 Carbon Dioxide 18.3 mmol/L (21-32) L 11/03/19 13:21 BUN 48 mg/dL (7-18) H 11/03/19 13:21 Creatinine 2.35 mg/dL (0.55-1.02) H 11/03/19 13:21 Est GFR (MDRD) Af Amer 25 (>60) L 11/03/19 13:21 Est GFR (MDRD) Non-Af 21 (>60) L 11/03/19 13:21 Glucose 214 mg/dL (65-99) H 11/03/19 13:21 POC Glucose (mg/dL) 193 mg/dL (65-99) H 11/03/19 10:13 Lactic Acid 1.6 mmol/L (0.4-2.0) 11/03/19 07:50 Calcium 8.8 mg/dL (8.5-10.1) 11/03/19 13:21 Corrected Calcium 9.2 mg/dL (8.5-10.1) 11/03/19 07:50 Magnesium 1.7 mg/dL (1.7-2.9) 11/03/19 13:21 Total Bilirubin 0.20 mg/dL (0.2-1.0) 11/03/19 07:50 AST 36 Units/L (15-37) 11/03/19 07:50 ALT 34 Units/L (12-78) 11/03/19 07:50 Alkaline Phosphatase 165 Units/L (46-116) H 11/03/19 07:50 Creatine Kinase 133 Units/L (26-192) 11/03/19 13:21 CK-MB (CK-2) 3.5 ng/mL (0-4.0) 11/03/19 13:21 CK/CKMB % Calc 2.6 % (<4) 11/03/19 13:21 Troponin I 0.17 ng/mL (0-1.5) 11/03/19 13:21 B-Natriuretic Peptide 126 pg/mL (0-79) H 11/03/19 13:21 Total Protein 7.5 g/dL (6.4-8.2) 11/03/19 07:50 Albumin 3.3 g/dL (3.4-5.0) L 11/03/19 07:50 Globulin 4.2 g/dL (2.5-4.5) 11/03/19 07:50 Albumin/Globulin Ratio 0.8 Ratio (1.1-2.1) L 11/03/19 07:50 Specimen Type Catherized urine 11/03/19 08:14 Urine Color Yellow (YELLOW) 11/03/19 08:14 Urine Appearance Cloudy (CLEAR) 11/03/19 08:14 Urine pH 5.0 (5.0 - 8.0) 11/03/19 08:14 Ur Specific [place] 1.015 (1.000-1.030) 11/03/19 08:14 Urine Protein 3+ (NEGATIVE) 11/03/19 08:14 Urine Glucose (UA) Negative (NEGATIVE) 11/03/19 08:14 Urine Ketones Negative (NEGATIVE) 11/03/19 08:14 Urine Occult Blood 4+ (NEGATIVE) 11/03/19 08:14 Urine Nitrite Negative (NEGATIVE) 11/03/19 08:14 Urine Bilirubin Negative (NEGATIVE) 11/03/19 08:14 Urine Urobilinogen Normal (NORMAL) 11/03/19 08:14 Ur Leukocyte Esterase 3+ (NEGATIVE) 11/03/19 08:14 Urine RBC Tntc /HPF (0-3) A 11/03/19 08:14 Urine WBC Tntc /HPF (0-5) A 11/03/19 08:14 Ur Squamous Epith Cells Rare /HPF (NEGATIVE) 11/03/19 08:14 Urine Bacteria 4+ /HPF (NEGATIVE) 11/03/19 08:14 Ur Culture Indicated? Yes/culture set up 11/03/19 08:14 Influenza Type A (PCR) Negative (NEGATIVE) 11/03/19 07:55 Influenza Type B (PCR) Negative (NEGATIVE) 11/03/19 07:55 XRAY XRAY Interpreted by: Radiologist (REPORT NOTED AND DISCUSSED WITH PATIENT AND HER FAMILY.) and Self EKG Rate: 114 [place]: Normal Rhythm: Junctional Block: None and IVCD Hypertrophy: None ST: Old, Infarct and Nonsp (HYPERKALEMIA.) Opioid Opioid Risk Tool Age (Juno box if 16-45): No History of Preadolescent Sexual Abuse: No Total: 0 Total Score Risk Category: Low Risk Copyright: [employer] predicting aberrant behaviors Diagnosis Discharge Problem: Acute hyperkalemia, Abnormal ECG, Acute UTI AMS (altered mental status) Qualifiers: Altered mental status type: transient alteration of awareness Qualified Code(s): R40.4 - Transient alteration of awareness Instructions Forms: Excuse From Work Patient Portal
[2019-11-03] MEDS ORDERED: KAYEXALATE SUSP PO NR ×2 (10:00→15:00)
[2019-11-03] MEDS ORDERED: INVANZ INJ 1 GM VIAL IM ONE (10:37)
[2019-11-03] MEDS ORDERED: NS 100 ML IV + SPIKE MINIBAG* 100 ML IV ONE (10:38)
[2019-11-03] MEDS ORDERED: INVANZ INJ 1 GM VIAL ONE (10:38)
[2019-11-03] MEDS: INVANZ INJ 1 GM VIAL 1 GM in NS 100 ML IV + SPIKE MINIBAG* 100 ML IV SCH (10:46)
--- NOTE | 2019-11-03 10:46 | CT ---
HISTORYAltered mental status. Unable wake.STUDYBRAIN W/O CONCOMPARISONHead CT from September 02, 2019.TECHNIQUEMultiple axial images of the head were obtained from the skull base to the vertex without administration of IV contrast. Sagittal and coronal reformatted images were performed. Automated exposure control (AEC) was utilized to adjust the MA and/or kV.FINDINGSThe sulci, cisterns and ventricles are prominent consistent with diffuse volume loss. There are confluent and scattered foci of low attenuation in the periventricular and subcortical white matter of both hemispheres. This is a nonspecific finding which likely represents microangiopathic change in a patient of this age.There appear vision old lacunar infarcts in the basal ganglia bilaterally. There is no evidence of acute territorial infarction, hemorrhage, mass, mass effect or midline shift. There are no abnormal intra-axial or extra-axial fluid collections. The visualized paranasal sinuses and mastoid air cells are predominantly clear. There is no evidence of acute osseous abnormality or significant soft tissue swelling.IMPRESSION1. No evidence of acute intracranial abnormality.2. 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 Nonspecific white matter change and volume loss.4. If there is strong clinical concern for acute infarction, then an MRI examination of the brain could be performed for further evaluation. However, if there are no deficits on neurologic exam, there are no abnormalities identified on this study which require immediate imaging follow-up on an emergent basis. Follow-up MRI could be considered on an outpatient basis as clinically warranted.Electronically signed by: JEANNETTE MARTINEZ (Nov 03, 2019 10:44:39)
[2019-11-03] MEDS ORDERED: HumuLIN R IV ONE ×2 (10:50→14:15)
[2019-11-03 13:47] LABS: CALCIUM 8.8 mg/dL (8.5-10.1); CARBON DIOXIDE 18.3 mmol/L (21-32); CKMB % 2.6 % (<4); CREATINE KINASE MB 3.5 ng/mL (0-4.0); CREATININE 2.35 mg/dL (0.55-1.02); TROPONIN I 0.17 ng/mL (0-1.5)
[2019-11-03] MEDS ORDERED: PROCRIT or EPOGEN VIAL 10,000 UNITS SC SCH (15:00)
[2019-11-03] MEDS ORDERED: ACCUNEB 1.25 MG NEBULE IN SCH (15:00)
[2019-11-03] MEDS ORDERED: ASCORBIC ACID COLLAGEN PO SCH (15:00)
[2019-11-03] MEDS ORDERED: VOLTAREN 1 % GEL MULTI DOSE TUBE TOP PRN ×3 (15:00→21:00)
[2019-11-03] MEDS ORDERED: PHENYLEPH PRAMOXIN GLYCR W PET TP PRN (15:00)
[2019-11-03 15:17] VITALS: BMI 34.6
[2019-11-03] MEDS: HumuLIN R SC PRN ×2 (15:55→22:25)
[2019-11-03] MEDS ORDERED: PROVENTIL NEB TX 0.083% 2.5MG/ 3ML IN SCH (16:00)
[2019-11-03] MEDS ORDERED: PHARMACY CONSULT LTC MEDICATIONS XX SCH (16:00)
[2019-11-03] MEDS: NS 1000 ML 1,000 ML IV SCH (17:00)
[2019-11-03] MEDS: PROVENTIL NEB TX 0.083% 2.5MG/ 3ML IN SCH (17:55)
[2019-11-03] MEDS ORDERED: SNACK - Diabetic Appropriate PO SCH ×3 (20:00)
[2019-11-03] MEDS: SNACK - Diabetic Appropriate PO SCH (20:10)
[2019-11-03] MEDS: COLACE CAP 100 MG PO SCH (21:00)
[2019-11-03] MEDS: VITAMIN C PO SCH (21:00)
[2019-11-03] MEDS: COREG TAB 3.125 MG PO SCH (21:00)
[2019-11-03] MEDS ORDERED: SENOKOT PO PRN (21:00)
[2019-11-03] MEDS: ZOCOR TAB 40 MG PO SCH (21:00)
[2019-11-03] MEDS: ELAVIL PO SCH (22:22)
[2019-11-04 00:29] LABS: CKMB % 2.8 % (<4); TROPONIN I 0.26 ng/mL (0-1.5)
[2019-11-04 00:32] LABS: CREATINE KINASE MB 4.8 ng/mL (0-4.0)
[2019-11-04] MEDS: PROVENTIL NEB TX 0.083% 2.5MG/ 3ML IN SCH ×4 (00:35→17:35)
[2019-11-04] MEDS: NORCO 10/325 TAB PO PRN ×3 (05:09→18:58)
[2019-11-04] MEDS: NS 1000 ML 1,000 ML IV SCH ×4 (06:07→20:42)
[2019-11-04 06:10] LABS: BASOPHILS # (AUTO) 0.1 X10^3/uL (0.0-0.1); BASOPHILS % (AUTO) 0.6 % (0.2-1.0); EOSINOPHILS # (AUTO) 0.3 x10^3/uL (0.0-0.2); EOSINOPHILS % (AUTO) 2.8 % (0.9-2.9); HEMATOCRIT 26.9 % (36.0-47.0); LYMPHOCYTES # (AUTO) 1.8 X10^3/uL (1.3-2.9); LYMPHOCYTES % (AUTO) 14.4 % (21.0-51.0); MEAN CORPUSCULAR HEMOGLOBIN 30.8 pg (27.0-34.0); MEAN CORPUSCULAR HGB CONC 32.6 g/dL (33.0-35.0); MEAN CORPUSCULAR VOLUME 94.6 fL (80.0-100.0); MEAN PLATELET VOLUME 7.8 fL (7.4-11.0); MONOCYTES # (AUTO) 0.8 x10^3/uL (0.3-0.8); MONOCYTES % (AUTO) 6.7 % (0.0-13.0); NEUTROPHILS # (AUTO) 9.2 x10^3/uL (2.2-4.8); NEUTROPHILS % (AUTO) 75.5 % (42.0-75.0); PLATELET COUNT 223 X10^3/uL (150.0-450.0); RED BLOOD COUNT 2.84 X10^6/uL (3.5-5.4); RED CELL DISTRIBUTION WIDTH 16.8 % (11.6-16.5); WHITE BLOOD COUNT 12.1 X10^3/uL (3.6-10.0)
[2019-11-04 06:55] LABS: HEMOGLOBIN 8.8 g/dL (12.0-16.0)
[2019-11-04 07:03] LABS: ALBUMIN 2.4 g/dL (3.4-5.0); CALCIUM 8.1 mg/dL (8.5-10.1); CARBON DIOXIDE 19.8 mmol/L (21-32); CKMB % 2.7 % (<4); COR CA(FOR HYPOALB) 9.4 mg/dL (8.5-10.1); CREATINE KINASE MB 3.7 ng/mL (0-4.0); CREATININE 1.88 mg/dL (0.55-1.02); MAGNESIUM 1.5 mg/dL (1.7-2.9); TOTAL PROTEIN 5.9 g/dL (6.4-8.2); TROPONIN I 0.25 ng/mL (0-1.5)
[2019-11-04] MEDS ORDERED: NEURONTIN CAP 100 MG ONE (08:32)
[2019-11-04] MEDS ORDERED: INVANZ INJ 1 GM VIAL 1 GM in NS 100 ML IV + SPIKE MINIBAG* 100 ML IV SCH (09:00)
[2019-11-04] MEDS ORDERED: BIOTIN 1000 MCG PO SCH (09:00)
[2019-11-04] MEDS: INVANZ INJ 1 GM VIAL 1 GM in NS 100 ML IV + SPIKE MINIBAG* 100 ML IV SCH (09:04)
[2019-11-04] MEDS: PROTONIX TAB 40 MG PO SCH (09:05)
[2019-11-04] MEDS: VITAMIN C PO SCH ×2 (09:05→20:54)
[2019-11-04] MEDS: TAB-A-VITE PO SCH (09:05)
[2019-11-04] MEDS: PLAVIX PO SCH (09:06)
[2019-11-04] MEDS: NEURONTIN CAP 100 MG PO SCH ×3 (09:06→22:12)
[2019-11-04] MEDS: BENADRYL CAP/TAB 25 MG PO SCH (09:06)
[2019-11-04] MEDS: ZINC SULFATE PO SCH (09:07)
[2019-11-04] MEDS: HEMOCYTE-PLUS PO SCH (09:08)
[2019-11-04] MEDS: COREG TAB 3.125 MG PO SCH ×2 (09:08→20:58)
[2019-11-04] MEDS: VITAMIN D3 PO SCH (09:08)
[2019-11-04] MEDS ORDERED: MORPHINE SULFATE INJ 2 MG INJ IVP PRN (12:52)
[2019-11-04] MEDS ORDERED: MORPHINE SULFATE INJ 2 MG INJ ONE (13:06)
[2019-11-04] MEDS: HumuLIN R SC PRN ×3 (13:15→20:58)
[2019-11-04] MEDS ORDERED: KLONOPIN TAB 0.5 MG ONE (16:17)
[2019-11-04] MEDS: KLONOPIN TAB 0.5 MG PO SCH ×2 (16:19→22:07)
[2019-11-04] MEDS: SNACK - Diabetic Appropriate PO SCH (20:16)
[2019-11-04] MEDS: COLACE CAP 100 MG PO SCH (20:55)
[2019-11-04] MEDS: ZANAFLEX PO SCH (20:56)
[2019-11-04] MEDS: ZOCOR TAB 40 MG PO SCH (20:57)
[2019-11-04] MEDS: ELAVIL PO SCH (20:58)
[2019-11-04] MEDS: MAGNESIUM SULFATE 1 GRAM/100 mL PREMIX 1 GM/100 ML BAG IV PRN ×2 (21:22→22:40)
--- NOTE | 2019-11-04 21:35 | DR.H&P ---
H&P - History & Physical for Day of: H&P Date: 11/03/19 - Chief Complaint Chief Complaint: FEVER, WEAKNESS, AMS, VOMITING, LOWER ABDOMINAL PAIN - History of Present Illness History of Present Illness: IS A 84 YEAR OLD PATIENT OF OURS. SHE IS A RESIDENT OF [facility]. SHE PRESENTED WITH REPORTS OF FEVER, ALTERED MENTAL STATUS, WEAKNESS, VOMITING, AND LOWER ABDOMINAL PAIN. SYMPTOMS REPORTEDLY STARTED A FEW HOURS PRIOR TO ARRIVAL TO THE ER. PMH INCLUDES ANEMIA, CHF, CAD, DEPRESSION, DM, GERD, HTN, AND RENAL DISEASE. ON ARRIVAL TO THE ER, VITALS WERE: 102.8-596-78-100%-123/77. LABS WERE OBTAINED. ABNORMAL LAB VALUES INCLUDE THE FOLLOWING: WBC 15.3, HGB 11.0, HCT 34.1, POTASSIUM 6.8, CHLORIDE 109, CARBON DIOXIDE 18.8, BUN 49, CREATININE 2.37, GLUCOSE 217, ALK PHOS 165, ALBUMIN 3.3. URINALYSIS REVEALED: WBC TNTC, RBC TNTC, BACTERIA 4+, LEUKOCYTES 3+. INFLUENZA NEGATIVE. BLOOD AND URINE CULTURES WERE OBTAINED. A CHEST XRAY WAS OBTAINED AND REVEALED: NO SIGNIFICANT ABNORMALITY. KUB REVEALED: Nonspecific nonobstructive bowel gas pattern. Moderate stool in the distal colon. No acute findings. EKG REVEALED: SINUS TACHYCARDIA WITH HR 115. BRAIN CT REVEALED: 1. No evidence of acute intracranial abnormality. 2. 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 3. Nonspecific white matter change and volume loss. SHE WAS GIVEN KAYEXALATE 15G PO X 2, IV ZOFRAN, HUMULIN R IV, AND D50 IN THE ER. SHE WAS ALSO STARTED ON IV FLUIDS. SHE WAS ADMITTED FOR FURTHER EVALUATION AND TREATMENT OF HYPERKALEMIA, UTI, AND AMS. SHE WAS STARTED ON NORMAL SALINE AT 75 ML/HR, HUMULIN R SLIDING SCALE, INVANZ 1G IV DAILY, MORPHINE IV PRN, AND HOME MEDICATIONS WERE RESUMED. OTHERWISE, WE PLAN TO FOLLOW UP WITH AM LABS AND CONTINUE TO MONITOR. - Past Medical History Past Medical History: Coronary Artery Disease, Hypertension, Diabetes, Renal Disease, Depression, Anemia, GERD, Arthritis, CHF Additional Medical History: Cataracts, Constipation, Urinary Tract Infections - Past Surgical History Surgical History: Angioplasty/Stents, Hysterectomy, Ortho Surgery - Family History Family Medical History: Coronary Artery Disease, Hypertension - Social History Does patient currently use any type of tobacco product: No Have you used tobacco products in the last 12 months: No Type of Tobacco Use: None Does any household member use tobacco: No Alcohol Use: None Drug Use: None - Medications Home Medications: ezetimibe [From Zetia] Allergy (Verified 09/16/19 20:38) Influenza Virus Vaccines Allergy (Verified 09/16/19 20:38) Penicillins Allergy (Verified 09/16/19 20:38) pneumococcal vaccine Allergy (Verified 09/16/19 20:38) ropinirole [From Requip] Allergy (Verified 09/16/19 20:38) CONTINUE taking the following medications nystatin 1 applic TOPICAL DAILY 11/03/19 [History] [id number] [Preparation H Maximum Strength] 1 applic TOPICAL Q6H PRN 11/03/19 [History] - Review of Systems Constitutional: Fever, Chills, Weakness Eyes: No Symptoms Reported ENT: No Symptoms Reported Respiratory: No Symptoms Reported Cardiovascular: No Symptoms Reported Gastrointestinal: See HPI, Nausea, Vomiting, Abdominal Pain Genitourinary: No Symptoms Reported Musculoskeletal: No Symptoms Reported Skin: No Symptoms Reported Neurological: Weakness - Physical Exam Vital Signs: Temperature 97.4 F Pulse Rate 90 Respiratory Rate 22 Blood Pressure [Left Arm] 175/75 Blood Pressure 132/63 O2 Sat by Pulse Oximetry 98 Oriented: Normal Eyes: Normal Ear: Normal Nose: Normal Throat: Normal Respiratory: Diminished Throughout Cardiovascular: Tachycardia. negative: S3, S4, Murmur : Normal Auscultation: Bowel Sounds: Normal Palpation: Normal Tenderness: Suprapubic, Mild Skin: Normal Musculoskeletal: Normal Psychiatric: Normal Mood Description: Calm Affect: Normal Speech Pattern: Inappropriate - Assessment/Plan (1) Acute hyperkalemia Status: Acute Plan: IV FLUIDS, CONTINUE TO MONITOR (2) Acute UTI Status: Acute Plan: IV FLUIDS, INVANZ 1G IV DAILY, CONTINUE TO MONITOR (3) AMS (altered mental status) Qualifiers: Altered mental status type: transient alteration of awareness Qualified Code(s): R40.4 - Transient alteration of awareness Status: Acute - Allergies Allergies/Adverse Reactions: Allergies Allergy/AdvReac Type Severity Reaction Status Date / Time ezetimibe [From Zetia] Allergy Verified 09/16/19 20:38 Influenza Virus Vaccines Allergy Verified 09/16/19 20:38 Penicillins Allergy Verified 09/16/19 20:38 pneumococcal vaccine Allergy Verified 09/16/19 20:38 ropinirole [From Requip] Allergy Verified 09/16/19 20:38
[2019-11-05] MEDS: PROVENTIL NEB TX 0.083% 2.5MG/ 3ML IN SCH ×4 (00:40→17:16)
[2019-11-05 05:45] LABS: BASOPHILS # (AUTO) 0.1 X10^3/uL (0.0-0.1); BASOPHILS % (AUTO) 0.7 % (0.2-1.0); EOSINOPHILS # (AUTO) 0.5 x10^3/uL (0.0-0.2); EOSINOPHILS % (AUTO) 6.3 % (0.9-2.9); HEMATOCRIT 26.2 % (36.0-47.0); HEMOGLOBIN 8.7 g/dL (12.0-16.0); LYMPHOCYTES # (AUTO) 1.3 X10^3/uL (1.3-2.9); LYMPHOCYTES % (AUTO) 15.6 % (21.0-51.0); MEAN CORPUSCULAR HEMOGLOBIN 31.8 pg (27.0-34.0); MEAN CORPUSCULAR HGB CONC 33.3 g/dL (33.0-35.0); MEAN CORPUSCULAR VOLUME 95.3 fL (80.0-100.0); MONOCYTES # (AUTO) 0.7 x10^3/uL (0.3-0.8); MONOCYTES % (AUTO) 8.7 % (0.0-13.0); NEUTROPHILS # (AUTO) 5.5 x10^3/uL (2.2-4.8); NEUTROPHILS % (AUTO) 68.7 % (42.0-75.0); PLATELET COUNT 197 X10^3/uL (150.0-450.0); RED BLOOD COUNT 2.75 X10^6/uL (3.5-5.4); RED CELL DISTRIBUTION WIDTH 17.5 % (11.6-16.5); WHITE BLOOD COUNT 8.1 X10^3/uL (3.6-10.0)
[2019-11-05] MEDS: NEURONTIN CAP 100 MG PO SCH ×3 (05:56→22:13)
[2019-11-05 05:57] LABS: ALBUMIN 2.3 g/dL (3.4-5.0); CALCIUM 8.1 mg/dL (8.5-10.1); CARBON DIOXIDE 20.1 mmol/L (21-32); COR CA(FOR HYPOALB) 9.5 mg/dL (8.5-10.1); CREATININE 1.68 mg/dL (0.55-1.02); MAGNESIUM 1.9 mg/dL (1.7-2.9); TOTAL PROTEIN 5.9 g/dL (6.4-8.2)
[2019-11-05] MEDS: HumuLIN R SC PRN ×3 (06:21→17:06)
[2019-11-05] MEDS: NS 1000 ML 1,000 ML IV SCH ×3 (06:21→19:52)
[2019-11-05] MEDS: HEMOCYTE-PLUS PO SCH (08:37)
[2019-11-05] MEDS: BENADRYL CAP/TAB 25 MG PO SCH (08:37)
[2019-11-05] MEDS: COREG TAB 3.125 MG PO SCH ×2 (08:37→21:32)
[2019-11-05] MEDS: INVANZ INJ 1 GM VIAL 1 GM in NS 100 ML IV + SPIKE MINIBAG* 100 ML IV SCH (08:38)
[2019-11-05] MEDS: PLAVIX PO SCH (08:38)
[2019-11-05] MEDS: KLONOPIN TAB 0.5 MG PO SCH ×2 (08:38→22:10)
[2019-11-05] MEDS: ZINC SULFATE PO SCH (08:39)
[2019-11-05] MEDS: TAB-A-VITE PO SCH (08:39)
[2019-11-05] MEDS: PROTONIX TAB 40 MG PO SCH (08:39)
[2019-11-05] MEDS: VITAMIN C PO SCH ×2 (08:39→22:11)
[2019-11-05] MEDS: VITAMIN D3 PO SCH (10:53)
[2019-11-05] MEDS: VANCOMYCIN IV *PREMIX 1 G/200 ML BAG 1 G/200 ML PIGGYBACK IV SCH (12:19)
[2019-11-05] MEDS: MAGNESIUM SULFATE 1 GRAM/100 mL PREMIX 1 GM/100 ML BAG IV PRN ×2 (13:58→16:00)
[2019-11-05] MEDS: SNACK - Diabetic Appropriate PO SCH (20:00)
[2019-11-05] MEDS: ZOCOR TAB 40 MG PO SCH (21:00)
[2019-11-05] MEDS: COLACE CAP 100 MG PO SCH (21:31)
[2019-11-05] MEDS: ELAVIL PO SCH (21:33)
[2019-11-05] MEDS: ZANAFLEX PO SCH (22:13)
[2019-11-06] MEDS: PROVENTIL NEB TX 0.083% 2.5MG/ 3ML IN SCH ×4 (00:30→17:01)
[2019-11-06] MEDS: NEURONTIN CAP 100 MG PO SCH ×3 (05:34→21:16)
[2019-11-06] MEDS: NS 1000 ML 1,000 ML IV SCH ×3 (06:03→23:49)
[2019-11-06 06:21] LABS: BASOPHILS # (AUTO) 0.1 X10^3/uL (0.0-0.1); EOSINOPHILS # (AUTO) 0.6 x10^3/uL (0.0-0.2); EOSINOPHILS % (AUTO) 7.9 % (0.9-2.9); HEMATOCRIT 28.2 % (36.0-47.0); HEMOGLOBIN 9.2 g/dL (12.0-16.0); LYMPHOCYTES # (AUTO) 0.8 X10^3/uL (1.3-2.9); LYMPHOCYTES % (AUTO) 10.4 % (21.0-51.0); MEAN CORPUSCULAR HGB CONC 32.7 g/dL (33.0-35.0); MEAN PLATELET VOLUME 7.5 fL (7.4-11.0); MONOCYTES # (AUTO) 0.5 x10^3/uL (0.3-0.8); MONOCYTES % (AUTO) 7.4 % (0.0-13.0); NEUTROPHILS # (AUTO) 5.4 x10^3/uL (2.2-4.8); NEUTROPHILS % (AUTO) 73.3 % (42.0-75.0); PLATELET COUNT 207 X10^3/uL (150.0-450.0); RED BLOOD COUNT 2.97 X10^6/uL (3.5-5.4); RED CELL DISTRIBUTION WIDTH 17.2 % (11.6-16.5); WHITE BLOOD COUNT 7.4 X10^3/uL (3.6-10.0)
[2019-11-06 06:28] LABS: ALBUMIN 2.2 g/dL (3.4-5.0); CALCIUM 8.1 mg/dL (8.5-10.1); CARBON DIOXIDE 20.5 mmol/L (21-32); COR CA(FOR HYPOALB) 9.5 mg/dL (8.5-10.1); CREATININE 1.45 mg/dL (0.55-1.02); TOTAL PROTEIN 5.8 g/dL (6.4-8.2)
--- NOTE | 2019-11-06 07:50 | US ---
HISTORYCHRONIC UTI, RENAL FAILURE, R/O STENOSISSTUDYDoppler ultrasound of the kidneysCOMPARISONAugust 2018FINDINGSThe right kidney measures 10 x 4.8 x 7 cm with cortical thickness of 1.57 cm. The left kidney measures 9.36 x 4.31 x 5 cm with cortical thickness of 1.61 cm. There is normal echogenicity of renal cortex. There is no hydronephrosis or renal mass.Incidentally noted are dependent calcified stones in the gallbladder. The common hepatic duct measures 5.6 mm diameter.The bladder is decompressed by Clemente balloon catheter.Peak systolic velocity in the right renal artery is 31.75 cm/second and peak velocity in the left renal artery is 25.3 cm/second.IMPRESSION1. Unremarkable ultrasound of the kidneys2. No evidence for renal artery stenosis3. CholelithiasisElectronically signed by: KYA HUTCHINSON (Nov 06, 2019 07:50:01)
[2019-11-06] MEDS: VANCOMYCIN IV *PREMIX 1 G/200 ML BAG 1 G/200 ML PIGGYBACK IV SCH (09:35)
[2019-11-06] MEDS: BENADRYL CAP/TAB 25 MG PO SCH (09:37)
[2019-11-06] MEDS: ZINC SULFATE PO SCH (09:38)
[2019-11-06] MEDS: TAB-A-VITE PO SCH (09:38)
[2019-11-06] MEDS: PROTONIX TAB 40 MG PO SCH (09:38)
[2019-11-06] MEDS: COREG TAB 3.125 MG PO SCH ×2 (09:38→20:44)
[2019-11-06] MEDS: VITAMIN C PO SCH ×2 (09:38→20:45)
[2019-11-06] MEDS: PLAVIX PO SCH (09:38)
[2019-11-06] MEDS: HEMOCYTE-PLUS PO SCH (09:38)
[2019-11-06] MEDS: KLONOPIN TAB 0.5 MG PO SCH ×2 (09:44→20:45)
[2019-11-06] MEDS: NORCO 10/325 TAB PO PRN (09:48)
[2019-11-06] MEDS: VITAMIN D3 PO SCH (09:49)
[2019-11-06] MEDS: MERREM VIAL 1 G in NS 100 ML IV + SPIKE MINIBAG* 100 ML IV SCH ×2 (10:36→20:45)
[2019-11-06] MEDS: LOVENOX INJ 40 MG SYR SC SCH (10:53)
[2019-11-06] MEDS: HumuLIN R SC PRN ×3 (10:59→20:46)
[2019-11-06] MEDS: SNACK - Diabetic Appropriate PO SCH (20:43)
[2019-11-06] MEDS: ELAVIL PO SCH (20:44)
[2019-11-06] MEDS: COLACE CAP 100 MG PO SCH (20:44)
[2019-11-06] MEDS: ZANAFLEX PO SCH (20:45)
[2019-11-06] MEDS: ZOCOR TAB 40 MG PO SCH (20:46)
--- NOTE | 2019-11-06 22:02 | PCM.PROG ---
Progress Note - Progress Note for Day of Date of Exam: 11/05/19 - Subjective Subjective: IS BEING TREATED FOR ACUTE HYPERKALEMIA, UTI, AND ALTERED MENTAL STATUS. TODAY, SHE IS ALERT AND ORIENTED, LYING IN BED ON MORNING ROUNDS. SHE REPORTS WEAKNESS AND LOWER ABDOMINAL PAIN TODAY. ON EXAMINATION, HEART IS REGULAR IN RATE AND RHYTHM. BILATERAL LUNGS ARE NOTED WITH DIMINISHED LUNG SOUNDS THROUGHOUT. ABDOMEN IS ROUND, SOFT, AND NOTED WITH MILD, DIFFUSE TENDERNESS THROUGHOUT. NORMAL BOWEL SOUNDS NOTED IN ALL QUADRANTS. THERE IS A 1.5X3CM WOUND NOTED TO THE RIGHT HEEL WITH A SMALL AMOUNT OF DRAINAGE. HER VITALS THIS MORNING ARE: 98.2-82-22-100%-148/68. LABS WERE OBTAINED. ABNORMAL LAB VALUES INCLUDE THE FOLLOWING: RBC 2.75, HGB 8.7, HCT 26.2, POTASSIUM 5.6, CHLORIDE 109, CARBON DIOXIDE 20.1, BUN 32, CREATININE 1.68, GLUCOSE 224, CALCIUM 8.1, TOTAL PROTEIN 5.9, ALBUMIN 2.3. BLOOD, URINE, AND RIGHT FOOT WOUND CULTURE PENDING. SHE IS CURRENTLY RECEIVING NS AT 75 ML/HR, INVANZ 1G IV DAILY, MORPHINE 1-2MG IV Q4H PRN, AND HOME MEDICATIONS WERE RESUMED. WE WILL CONTINUE WITH CURRENT PLAN OF CARE TODAY. OTHERWISE, WE WILL FOLLOW UP WITH AM LABS AND CONTINUE TO MONITOR. - Past Medical Family Social History Past Med/Fam/Surg Hx: No changes since H&P Allergies: Allergies ezetimibe [From Zetia] Allergy (Verified 09/16/19 20:38) Influenza Virus Vaccines Allergy (Verified 09/16/19 20:38) Penicillins Allergy (Verified 09/16/19 20:38) pneumococcal vaccine Allergy (Verified 09/16/19 20:38) ropinirole [From Requip] Allergy (Verified 09/16/19 20:38) - Review of Systems ROS: No change since H&P - Vital Signs and I&O's Vital Signs: Temperature 98.1 F Pulse Rate 97 Respiratory Rate 30 Blood Pressure [Left Arm] 175/75 Blood Pressure 170/67 O2 Sat by Pulse Oximetry 100 Intake and Output: Intake & Output 11/04/19 11/05/19 11/06/19 11/07/19 11:59 11:59 11:59 11:59 Intake Total 1888 / 1888 3301 / 3301 2367 / 2367 1134 / 1134 Output Total 1725 / 1725 3100 / 3100 2575 / 2575 1000 / 1000 Balance 163 / 163 201 / 201 -208 / -208 134 / 134 - Physical Exam Oriented: Normal Eyes: Normal Ear: Normal Nose: Normal Throat: Normal Respiratory: Generalized, Diminished Cardiovascular: Normal. negative: S3, S4, Murmur : Normal Auscultation: Bowel Sounds: Normal Palpation: Normal Tenderness: Suprapubic, Mild Skin: Normal Musculoskeletal: Normal Psychiatric: Normal Mood Description: Calm Affect: Normal Speech Pattern: Clear, Appropriate - Laboratory and Diagnostics Result Diagrams: 11/06/19 04:44 11/06/19 04:44 Labs: 11/04/19 11:45 Foot - Right Gram Stain - Final 11/04/19 11:45 Foot - Right Wound Culture - Final Methicillin Resis Staph Aureus 11/03/19 07:50 Blood Blood Culture - Preliminary 11/03/19 07:45 Blood Blood Culture - Preliminary 11/03/19 08:14 Urine,Catheterized Urine Culture - Final Enterococcus Faecalis Laboratory WBC 7.4 X10^3/uL (3.6-10.0) 11/06/19 04:44 RBC 2.97 X10^6/uL (3.5-5.4) L 11/06/19 04:44 Hgb 9.2 g/dL (12.0-16.0) L 11/06/19 04:44 Hct 28.2 % (36.0-47.0) L 11/06/19 04:44 MCV 95.0 fL (80.0-100.0) 11/06/19 04:44 MCH 31.0 pg (27.0-34.0) 11/06/19 04:44 MCHC 32.7 g/dL (33.0-35.0) L 11/06/19 04:44 RDW 17.2 % (11.6-16.5) H 11/06/19 04:44 Plt Count 207 X10^3/uL (150.0-450.0) 11/06/19 04:44 MPV 7.5 fL (7.4-11.0) 11/06/19 04:44 Neut % (Auto) 73.3 % (42.0-75.0) 11/06/19 04:44 Lymph % (Auto) 10.4 % (21.0-51.0) L 11/06/19 04:44 [place] % (Auto) 7.4 % (0.0-13.0) 11/06/19 04:44 Eos % (Auto) 7.9 % (0.9-2.9) H 11/06/19 04:44 Baso % (Auto) 1.0 % (0.2-1.0) 11/06/19 04:44 Neut # (Auto) 5.4 x10^3/uL (2.2-4.8) H 11/06/19 04:44 Lymph # (Auto) 0.8 X10^3/uL (1.3-2.9) L 11/06/19 04:44 [place] # (Auto) 0.5 x10^3/uL (0.3-0.8) 11/06/19 04:44 Eos # (Auto) 0.6 x10^3/uL (0.0-0.2) H 11/06/19 04:44 Baso # (Auto) 0.1 X10^3/uL (0.0-0.1) 11/06/19 04:44 Absolute Nucleated RBC 0.0 /100WBC 11/06/19 04:44 Sodium 140 mmol/L (136-145) 11/06/19 04:44 Corrected Sodium 140 mmol/L (136-145) 11/06/19 04:44 Potassium 5.1 mmol/L (3.5-5.1) 11/06/19 04:44 Chloride 112 mmol/L (98-107) H 11/06/19 04:44 Carbon Dioxide 20.5 mmol/L (21-32) L 11/06/19 04:44 BUN 26 mg/dL (7-18) H 11/06/19 04:44 Creatinine 1.45 mg/dL (0.55-1.02) H 11/06/19 04:44 Est GFR (MDRD) Af Amer 44 (>60) L 11/06/19 04:44 Est GFR (MDRD) Non-Af 37 (>60) L 11/06/19 04:44 Glucose 118 mg/dL (65-99) H 11/06/19 04:44 POC Glucose (mg/dL) 201 mg/dL (65-99) H 11/06/19 20:10 Lactic Acid 1.6 mmol/L (0.4-2.0) 11/03/19 07:50 Calcium 8.1 mg/dL (8.5-10.1) L 11/06/19 04:44 Corrected Calcium 9.5 mg/dL (8.5-10.1) 11/06/19 04:44 Magnesium 1.9 mg/dL (1.7-2.9) 11/05/19 04:40 Total Bilirubin 0.30 mg/dL (0.2-1.0) 11/06/19 04:44 AST 20 Units/L (15-37) 11/06/19 04:44 ALT 19 Units/L (12-78) 11/06/19 04:44 Alkaline Phosphatase 103 Units/L (46-116) 11/06/19 04:44 Creatine Kinase 137 Units/L (26-192) 11/04/19 05:01 CK-MB (CK-2) 3.7 ng/mL (0-4.0) 11/04/19 05:01 CK/CKMB % Calc 2.7 % (<4) 11/04/19 05:01 Troponin I 0.25 ng/mL (0-1.5) 11/04/19 05:01 B-Natriuretic Peptide 126 pg/mL (0-79) H 11/03/19 13:21 Total Protein 5.8 g/dL (6.4-8.2) L 11/06/19 04:44 Albumin 2.2 g/dL (3.4-5.0) L 11/06/19 04:44 Globulin 3.6 g/dL (2.5-4.5) 11/06/19 04:44 Albumin/Globulin Ratio 0.6 Ratio (1.1-2.1) L 11/06/19 04:44 Specimen Type Catherized urine 11/03/19 08:14 Urine Color Yellow (YELLOW) 11/03/19 08:14 Urine Appearance Cloudy (CLEAR) 11/03/19 08:14 Urine pH 5.0 (5.0 - 8.0) 11/03/19 08:14 Ur Specific [place] 1.015 (1.000-1.030) 11/03/19 08:14 Urine Protein 3+ (NEGATIVE) 11/03/19 08:14 Urine Glucose (UA) Negative (NEGATIVE) 11/03/19 08:14 Urine Ketones Negative (NEGATIVE) 11/03/19 08:14 Urine Occult Blood 4+ (NEGATIVE) 11/03/19 08:14 Urine Nitrite Negative (NEGATIVE) 11/03/19 08:14 Urine Bilirubin Negative (NEGATIVE) 11/03/19 08:14 Urine Urobilinogen Normal (NORMAL) 11/03/19 08:14 Ur Leukocyte Esterase 3+ (NEGATIVE) 11/03/19 08:14 Urine RBC Tntc /HPF (0-3) A 11/03/19 08:14 Urine WBC Tntc /HPF (0-5) A 11/03/19 08:14 Ur Squamous Epith Cells Rare /HPF (NEGATIVE) 11/03/19 08:14 Urine Bacteria 4+ /HPF (NEGATIVE) 11/03/19 08:14 Ur Culture Indicated? Yes/culture set up 11/03/19 08:14 Influenza Type A (PCR) Negative (NEGATIVE) 11/03/19 07:55 Influenza Type B (PCR) Negative (NEGATIVE) 11/03/19 07:55 - Plan (1) Acute hyperkalemia Status: Acute Plan: IV FLUIDS, CONTINUE TO MONITOR (2) Acute UTI Status: Acute Plan: IV FLUIDS, INVANZ 1G IV DAILY, CONTINUE TO MONITOR (3) AMS (altered mental status) Status: Acute Qualifiers: Altered mental status type: transient alteration of awareness Qualified Code(s): R40.4 - Transient alteration of awareness
--- NOTE | 2019-11-06 22:37 | PCM.PROG ---
Progress Note - Progress Note for Day of Date of Exam: 11/06/19 - Subjective Subjective: IS BEING TREATED FOR ACUTE HYPERKALEMIA, UTI, AND ALTERED MENTAL STATUS. TODAY, SHE IS ALERT AND ORIENTED, LYING IN BED ON MORNING ROUNDS. SHE REPORTS WEAKNESS AND LOWER ABDOMINAL PAIN TODAY. ON EXAMINATION, HEART IS REGULAR IN RATE AND RHYTHM. BILATERAL LUNGS ARE NOTED WITH DIMINISHED LUNG SOUNDS THROUGHOUT. ABDOMEN IS ROUND, SOFT, AND NOTED WITH MILD, DIFFUSE TENDERNESS THROUGHOUT. NORMAL BOWEL SOUNDS NOTED IN ALL QUADRANTS. THERE IS A 1.5X3CM WOUND NOTED TO THE RIGHT HEEL WITH A SMALL AMOUNT OF DRAINAGE. HER VITALS THIS MORNING ARE: 97.2-76-22-100%-150/80. LABS WERE OBTAINED. ABNORMAL LAB VALUES INCLUDE THE FOLLOWING: RBC 2.97, HGB 9.2, HCT 28.2, CHLORIDE 112, CARBON DIOXIDE 20.5, BUN 26, CREATININE 1.45, GLUCOSE 118, CALCIUM 8.1, TOTAL PROTEIN 5.8, ALBUMIN 2.2. FOOT CULTURE REVEALS GROWTH OF MRSA. URINE CULTURE REVEALS GROWTH OF ENTEROCOCCUS FAECALIS. SHE IS CURRENTLY RECEIVING NS AT 75 ML/HR, INVANZ 1G IV DAILY, MORPHINE 1-2MG IV Q4H PRN, AND HOME MEDICATIONS WERE RESUMED. WE WILL DISCONTINUE THE INVANZ TODAY AND START MEROPENEM 1G IV Q12H. OTHERWISE, WE WILL FOLLOW UP WITH AM LABS AND CONTINUE TO MONITOR. - Past Medical Family Social History Past Med/Fam/Surg Hx: No changes since H&P Allergies: Allergies ezetimibe [From Zetia] Allergy (Verified 09/16/19 20:38) Influenza Virus Vaccines Allergy (Verified 09/16/19 20:38) Penicillins Allergy (Verified 09/16/19 20:38) pneumococcal vaccine Allergy (Verified 09/16/19 20:38) ropinirole [From Requip] Allergy (Verified 09/16/19 20:38) - Review of Systems ROS: No change since H&P - Vital Signs and I&O's Vital Signs: Temperature 98.1 F Pulse Rate 97 Respiratory Rate 30 Blood Pressure [Left Arm] 175/75 Blood Pressure 170/67 O2 Sat by Pulse Oximetry 100 Intake and Output: Intake & Output 11/04/19 11/05/19 11/06/19 11/07/19 11:59 11:59 11:59 11:59 Intake Total 1888 / 1888 3301 / 3301 2367 / 2367 1134 / 1134 Output Total 1725 / 1725 3100 / 3100 2575 / 2575 1000 / 1000 Balance 163 / 163 201 / 201 -208 / -208 134 / 134 - Physical Exam Oriented: Normal Eyes: Normal Ear: Normal Nose: Normal Throat: Normal Respiratory: Generalized, Diminished Cardiovascular: Normal. negative: S3, S4, Murmur : Normal Auscultation: Bowel Sounds: Normal Palpation: Normal Tenderness: Suprapubic, Mild Skin: Normal Musculoskeletal: Normal Psychiatric: Normal Mood Description: Calm Affect: Normal Speech Pattern: Clear, Appropriate - Laboratory and Diagnostics Result Diagrams: 11/06/19 04:44 11/06/19 04:44 Labs: 11/04/19 11:45 Foot - Right Gram Stain - Final 11/04/19 11:45 Foot - Right Wound Culture - Final Methicillin Resis Staph Aureus 11/03/19 07:50 Blood Blood Culture - Preliminary 11/03/19 07:45 Blood Blood Culture - Preliminary 11/03/19 08:14 Urine,Catheterized Urine Culture - Final Enterococcus Faecalis Laboratory WBC 7.4 X10^3/uL (3.6-10.0) 11/06/19 04:44 RBC 2.97 X10^6/uL (3.5-5.4) L 11/06/19 04:44 Hgb 9.2 g/dL (12.0-16.0) L 11/06/19 04:44 Hct 28.2 % (36.0-47.0) L 11/06/19 04:44 MCV 95.0 fL (80.0-100.0) 11/06/19 04:44 MCH 31.0 pg (27.0-34.0) 11/06/19 04:44 MCHC 32.7 g/dL (33.0-35.0) L 11/06/19 04:44 RDW 17.2 % (11.6-16.5) H 11/06/19 04:44 Plt Count 207 X10^3/uL (150.0-450.0) 11/06/19 04:44 MPV 7.5 fL (7.4-11.0) 11/06/19 04:44 Neut % (Auto) 73.3 % (42.0-75.0) 11/06/19 04:44 Lymph % (Auto) 10.4 % (21.0-51.0) L 11/06/19 04:44 [place] % (Auto) 7.4 % (0.0-13.0) 11/06/19 04:44 Eos % (Auto) 7.9 % (0.9-2.9) H 11/06/19 04:44 Baso % (Auto) 1.0 % (0.2-1.0) 11/06/19 04:44 Neut # (Auto) 5.4 x10^3/uL (2.2-4.8) H 11/06/19 04:44 Lymph # (Auto) 0.8 X10^3/uL (1.3-2.9) L 11/06/19 04:44 [place] # (Auto) 0.5 x10^3/uL (0.3-0.8) 11/06/19 04:44 Eos # (Auto) 0.6 x10^3/uL (0.0-0.2) H 11/06/19 04:44 Baso # (Auto) 0.1 X10^3/uL (0.0-0.1) 11/06/19 04:44 Absolute Nucleated RBC 0.0 /100WBC 11/06/19 04:44 Sodium 140 mmol/L (136-145) 11/06/19 04:44 Corrected Sodium 140 mmol/L (136-145) 11/06/19 04:44 Potassium 5.1 mmol/L (3.5-5.1) 11/06/19 04:44 Chloride 112 mmol/L (98-107) H 11/06/19 04:44 Carbon Dioxide 20.5 mmol/L (21-32) L 11/06/19 04:44 BUN 26 mg/dL (7-18) H 11/06/19 04:44 Creatinine 1.45 mg/dL (0.55-1.02) H 11/06/19 04:44 Est GFR (MDRD) Af Amer 44 (>60) L 11/06/19 04:44 Est GFR (MDRD) Non-Af 37 (>60) L 11/06/19 04:44 Glucose 118 mg/dL (65-99) H 11/06/19 04:44 POC Glucose (mg/dL) 201 mg/dL (65-99) H 11/06/19 20:10 Lactic Acid 1.6 mmol/L (0.4-2.0) 11/03/19 07:50 Calcium 8.1 mg/dL (8.5-10.1) L 11/06/19 04:44 Corrected Calcium 9.5 mg/dL (8.5-10.1) 11/06/19 04:44 Magnesium 1.9 mg/dL (1.7-2.9) 11/05/19 04:40 Total Bilirubin 0.30 mg/dL (0.2-1.0) 11/06/19 04:44 AST 20 Units/L (15-37) 11/06/19 04:44 ALT 19 Units/L (12-78) 11/06/19 04:44 Alkaline Phosphatase 103 Units/L (46-116) 11/06/19 04:44 Creatine Kinase 137 Units/L (26-192) 11/04/19 05:01 CK-MB (CK-2) 3.7 ng/mL (0-4.0) 11/04/19 05:01 CK/CKMB % Calc 2.7 % (<4) 11/04/19 05:01 Troponin I 0.25 ng/mL (0-1.5) 11/04/19 05:01 B-Natriuretic Peptide 126 pg/mL (0-79) H 11/03/19 13:21 Total Protein 5.8 g/dL (6.4-8.2) L 11/06/19 04:44 Albumin 2.2 g/dL (3.4-5.0) L 11/06/19 04:44 Globulin 3.6 g/dL (2.5-4.5) 11/06/19 04:44 Albumin/Globulin Ratio 0.6 Ratio (1.1-2.1) L 11/06/19 04:44 Specimen Type Catherized urine 11/03/19 08:14 Urine Color Yellow (YELLOW) 11/03/19 08:14 Urine Appearance Cloudy (CLEAR) 11/03/19 08:14 Urine pH 5.0 (5.0 - 8.0) 11/03/19 08:14 Ur Specific [place] 1.015 (1.000-1.030) 11/03/19 08:14 Urine Protein 3+ (NEGATIVE) 11/03/19 08:14 Urine Glucose (UA) Negative (NEGATIVE) 11/03/19 08:14 Urine Ketones Negative (NEGATIVE) 11/03/19 08:14 Urine Occult Blood 4+ (NEGATIVE) 11/03/19 08:14 Urine Nitrite Negative (NEGATIVE) 11/03/19 08:14 Urine Bilirubin Negative (NEGATIVE) 11/03/19 08:14 Urine Urobilinogen Normal (NORMAL) 11/03/19 08:14 Ur Leukocyte Esterase 3+ (NEGATIVE) 11/03/19 08:14 Urine RBC Tntc /HPF (0-3) A 11/03/19 08:14 Urine WBC Tntc /HPF (0-5) A 11/03/19 08:14 Ur Squamous Epith Cells Rare /HPF (NEGATIVE) 11/03/19 08:14 Urine Bacteria 4+ /HPF (NEGATIVE) 11/03/19 08:14 Ur Culture Indicated? Yes/culture set up 11/03/19 08:14 Influenza Type A (PCR) Negative (NEGATIVE) 11/03/19 07:55 Influenza Type B (PCR) Negative (NEGATIVE) 11/03/19 07:55 - Plan (1) Acute hyperkalemia Status: Acute Plan: IV FLUIDS, CONTINUE TO MONITOR (2) Acute UTI Status: Acute Plan: IV FLUIDS, MEROPENEM 1G IV Q12H, CONTINUE TO MONITOR (3) AMS (altered mental status) Status: Acute Qualifiers: Altered mental status type: transient alteration of awareness Qualified Code(s): R40.4 - Transient alteration of awareness
[2019-11-07] MEDS: PROVENTIL NEB TX 0.083% 2.5MG/ 3ML IN SCH ×4 (00:51→17:50)
[2019-11-07 05:20] LABS: BASOPHILS # (AUTO) 0.1 X10^3/uL (0.0-0.1); BASOPHILS % (AUTO) 1.2 % (0.2-1.0); EOSINOPHILS # (AUTO) 0.6 x10^3/uL (0.0-0.2); EOSINOPHILS % (AUTO) 9.5 % (0.9-2.9); HEMATOCRIT 28.2 % (36.0-47.0); HEMOGLOBIN 9.3 g/dL (12.0-16.0); LYMPHOCYTES # (AUTO) 0.7 X10^3/uL (1.3-2.9); LYMPHOCYTES % (AUTO) 11.1 % (21.0-51.0); MEAN CORPUSCULAR HEMOGLOBIN 31.2 pg (27.0-34.0); MEAN CORPUSCULAR VOLUME 94.7 fL (80.0-100.0); MEAN PLATELET VOLUME 7.8 fL (7.4-11.0); MONOCYTES # (AUTO) 0.5 x10^3/uL (0.3-0.8); MONOCYTES % (AUTO) 8.9 % (0.0-13.0); NEUTROPHILS # (AUTO) 4.2 x10^3/uL (2.2-4.8); NEUTROPHILS % (AUTO) 69.3 % (42.0-75.0); PLATELET COUNT 207 X10^3/uL (150.0-450.0); RED BLOOD COUNT 2.98 X10^6/uL (3.5-5.4); RED CELL DISTRIBUTION WIDTH 16.5 % (11.6-16.5)
[2019-11-07] MEDS: NEURONTIN CAP 100 MG PO SCH ×3 (05:36→21:03)
[2019-11-07 05:41] LABS: ALBUMIN 2.4 g/dL (3.4-5.0); CKMB % 3.3 % (<4); COR CA(FOR HYPOALB) 9.3 mg/dL (8.5-10.1); CREATINE KINASE MB 1.4 ng/mL (0-4.0); CREATININE 1.27 mg/dL (0.55-1.02); MAGNESIUM 1.8 mg/dL (1.7-2.9); TROPONIN I 0.07 ng/mL (0-1.5)
[2019-11-07] MEDS: HumuLIN R SC PRN ×3 (05:46→21:04)
[2019-11-07] MEDS: MAGNESIUM SULFATE 1 GRAM/100 mL PREMIX 1 GM/100 ML BAG IV PRN ×2 (06:43→08:06)
[2019-11-07] MEDS: KLONOPIN TAB 0.5 MG PO SCH ×2 (08:47→20:56)
[2019-11-07] MEDS: PROTONIX TAB 40 MG PO SCH (08:47)
[2019-11-07] MEDS: VITAMIN C PO SCH ×2 (08:47→20:57)
[2019-11-07] MEDS: HEMOCYTE-PLUS PO SCH (08:47)
[2019-11-07] MEDS: LOVENOX INJ 40 MG SYR SC SCH (08:47)
[2019-11-07] MEDS: COREG TAB 3.125 MG PO SCH ×2 (08:48→20:56)
[2019-11-07] MEDS: ZINC SULFATE PO SCH (08:48)
[2019-11-07] MEDS: TAB-A-VITE PO SCH (08:48)
[2019-11-07] MEDS: PLAVIX PO SCH (08:48)
[2019-11-07] MEDS: BENADRYL CAP/TAB 25 MG PO SCH (08:50)
[2019-11-07] MEDS: VITAMIN D3 PO SCH (08:50)
[2019-11-07] MEDS: MERREM VIAL 1 G in NS 100 ML IV + SPIKE MINIBAG* 100 ML IV SCH ×2 (09:14→20:56)
[2019-11-07] MEDS: NS 1000 ML 1,000 ML IV SCH ×2 (10:16→13:50)
[2019-11-07] MEDS: VANCOMYCIN IV *PREMIX 1 G/200 ML BAG 1 G/200 ML PIGGYBACK IV SCH (10:17)
[2019-11-07] MEDS ORDERED: LASIX IVP ONE (13:43)
[2019-11-07] MEDS ORDERED: LASIX ONE (13:47)
[2019-11-07] MEDS: NORCO 10/325 TAB PO PRN ×2 (15:39→20:58)
[2019-11-07] MEDS: COLACE CAP 100 MG PO SCH (20:28)
[2019-11-07] MEDS: SNACK - Diabetic Appropriate PO SCH (20:55)
[2019-11-07] MEDS: ELAVIL PO SCH (20:56)
[2019-11-07] MEDS: ZANAFLEX PO SCH (20:57)
[2019-11-07] MEDS: ZOCOR TAB 40 MG PO SCH (20:57)
--- NOTE | 2019-11-07 23:04 | PCM.PROG ---
Progress Note - Progress Note for Day of Date of Exam: 11/07/19 - Subjective Subjective: IS BEING TREATED FOR ACUTE HYPERKALEMIA, UTI, AND ALTERED MENTAL STATUS. TODAY, SHE IS ALERT AND ORIENTED, LYING IN BED ON MORNING ROUNDS. SHE REPORTS WEAKNESS AND LOWER ABDOMINAL PAIN TODAY. ON EXAMINATION, HEART IS REGULAR IN RATE AND RHYTHM. BILATERAL LUNGS ARE NOTED WITH DIMINISHED LUNG SOUNDS THROUGHOUT. ABDOMEN IS ROUND, SOFT, AND NOTED WITH MILD, DIFFUSE TENDERNESS THROUGHOUT. NORMAL BOWEL SOUNDS NOTED IN ALL QUADRANTS. THERE IS A 1.5X3CM WOUND NOTED TO THE RIGHT HEEL WITH A SMALL AMOUNT OF DRAINAGE. HER VITALS THIS MORNING ARE: 97.8-83-20-94%-140/64. LABS WERE OBTAINED. ABNORMAL LAB VALUES INCLUDE THE FOLLOWING: RBC 2.98, HGB 9.3, HCT 28.2, CHLORIDE 109, BUN 25, CREATININE 1.27, GLUCOSE 163, CALCIUM 8.0, TOTAL PROTEIN 6.0, ALBUMIN 2.4. FOOT CULTURE REVEALS GROWTH OF MRSA. URINE CULTURE REVEALS GROWTH OF ENTEROCOCCUS FAECALIS. SHE IS CURRENTLY RECEIVING NS AT 75 ML/HR, MEROPENEM 1G IV Q12H, MORPHINE 1-2MG IV Q4H PRN, AND HOME MEDICATIONS WERE RESUMED. OTHERWISE, WE WILL FOLLOW UP WITH AM LABS AND CONTINUE TO MONITOR. - Past Medical Family Social History Past Med/Fam/Surg Hx: No changes since H&P Allergies: Allergies ezetimibe [From Zetia] Allergy (Verified 09/16/19 20:38) Influenza Virus Vaccines Allergy (Verified 09/16/19 20:38) Penicillins Allergy (Verified 09/16/19 20:38) pneumococcal vaccine Allergy (Verified 09/16/19 20:38) ropinirole [From Requip] Allergy (Verified 09/16/19 20:38) - Review of Systems ROS: No change since H&P - Vital Signs and I&O's Vital Signs: Temperature 97.7 F Pulse Rate 92 Respiratory Rate 22 Blood Pressure [Left Arm] 175/75 Blood Pressure 144/64 O2 Sat by Pulse Oximetry 92 Intake and Output: Intake & Output 11/05/19 11/06/19 11/07/19 11/08/19 11:59 11:59 11:59 11:59 Intake Total 3301 / 3301 2367 / 2367 2688 / 2688 880 / 880 Output Total 3100 / 3100 2575 / 2575 2800 / 2800 1850 / 1850 Balance 201 / 201 -208 / -208 -112 / -112 -970 / -970 - Physical Exam Oriented: Normal Eyes: Normal Ear: Normal Nose: Normal Throat: Normal Respiratory: Generalized, Diminished Cardiovascular: Normal. negative: S3, S4, Murmur : Normal Auscultation: Bowel Sounds: Normal Tenderness: Suprapubic, Mild Skin: Normal Musculoskeletal: Normal Psychiatric: Normal Mood Description: Calm Affect: Normal Speech Pattern: Clear - Laboratory and Diagnostics Result Diagrams: 11/07/19 04:56 11/07/19 04:56 Labs: 11/04/19 11:45 Foot - Right Gram Stain - Final 11/04/19 11:45 Foot - Right Wound Culture - Final Methicillin Resis Staph Aureus 11/03/19 07:50 Blood Blood Culture - Preliminary 11/03/19 07:45 Blood Blood Culture - Preliminary 11/03/19 08:14 Urine,Catheterized Urine Culture - Final Enterococcus Faecalis Laboratory WBC 6.0 X10^3/uL (3.6-10.0) 11/07/19 04:56 RBC 2.98 X10^6/uL (3.5-5.4) L 11/07/19 04:56 Hgb 9.3 g/dL (12.0-16.0) L 11/07/19 04:56 Hct 28.2 % (36.0-47.0) L 11/07/19 04:56 MCV 94.7 fL (80.0-100.0) 11/07/19 04:56 MCH 31.2 pg (27.0-34.0) 11/07/19 04:56 MCHC 33.0 g/dL (33.0-35.0) 11/07/19 04:56 RDW 16.5 % (11.6-16.5) 11/07/19 04:56 Plt Count 207 X10^3/uL (150.0-450.0) 11/07/19 04:56 MPV 7.8 fL (7.4-11.0) 11/07/19 04:56 Neut % (Auto) 69.3 % (42.0-75.0) 11/07/19 04:56 Lymph % (Auto) 11.1 % (21.0-51.0) L 11/07/19 04:56 [place] % (Auto) 8.9 % (0.0-13.0) 11/07/19 04:56 Eos % (Auto) 9.5 % (0.9-2.9) H 11/07/19 04:56 Baso % (Auto) 1.2 % (0.2-1.0) H 11/07/19 04:56 Neut # (Auto) 4.2 x10^3/uL (2.2-4.8) 11/07/19 04:56 Lymph # (Auto) 0.7 X10^3/uL (1.3-2.9) L 11/07/19 04:56 [place] # (Auto) 0.5 x10^3/uL (0.3-0.8) 11/07/19 04:56 Eos # (Auto) 0.6 x10^3/uL (0.0-0.2) H 11/07/19 04:56 Baso # (Auto) 0.1 X10^3/uL (0.0-0.1) 11/07/19 04:56 Absolute Nucleated RBC 0.1 /100WBC 11/07/19 04:56 Sodium 140 mmol/L (136-145) 11/07/19 04:56 Corrected Sodium 142 mmol/L (136-145) 11/07/19 04:56 Potassium 4.9 mmol/L (3.5-5.1) 11/07/19 04:56 Chloride 109 mmol/L (98-107) H 11/07/19 04:56 Carbon Dioxide 22.0 mmol/L (21-32) 11/07/19 04:56 BUN 25 mg/dL (7-18) H 11/07/19 04:56 Creatinine 1.27 mg/dL (0.55-1.02) H 11/07/19 04:56 Est GFR (MDRD) Af Amer 52 (>60) L 11/07/19 04:56 Est GFR (MDRD) Non-Af 43 (>60) L 11/07/19 04:56 Glucose 163 mg/dL (65-99) H 11/07/19 04:56 POC Glucose (mg/dL) 182 mg/dL (65-99) H 11/07/19 20:18 Lactic Acid 1.6 mmol/L (0.4-2.0) 11/03/19 07:50 Calcium 8.0 mg/dL (8.5-10.1) L 11/07/19 04:56 Corrected Calcium 9.3 mg/dL (8.5-10.1) 11/07/19 04:56 Magnesium 1.8 mg/dL (1.7-2.9) 11/07/19 04:56 Total Bilirubin 0.30 mg/dL (0.2-1.0) 11/07/19 04:56 AST 19 Units/L (15-37) 11/07/19 04:56 ALT 20 Units/L (12-78) 11/07/19 04:56 Alkaline Phosphatase 106 Units/L (46-116) 11/07/19 04:56 Creatine Kinase 42 Units/L (26-192) 11/07/19 04:56 CK-MB (CK-2) 1.4 ng/mL (0-4.0) 11/07/19 04:56 CK/CKMB % Calc 3.3 % (<4) 11/07/19 04:56 Troponin I 0.07 ng/mL (0-1.5) 11/07/19 04:56 B-Natriuretic Peptide 126 pg/mL (0-79) H 11/03/19 13:21 Total Protein 6.0 g/dL (6.4-8.2) L 11/07/19 04:56 Albumin 2.4 g/dL (3.4-5.0) L 11/07/19 04:56 Globulin 3.6 g/dL (2.5-4.5) 11/07/19 04:56 Albumin/Globulin Ratio 0.7 Ratio (1.1-2.1) L 11/07/19 04:56 Specimen Type Catherized urine 11/03/19 08:14 Urine Color Yellow (YELLOW) 11/03/19 08:14 Urine Appearance Cloudy (CLEAR) 11/03/19 08:14 Urine pH 5.0 (5.0 - 8.0) 11/03/19 08:14 Ur Specific [place] 1.015 (1.000-1.030) 11/03/19 08:14 Urine Protein 3+ (NEGATIVE) 11/03/19 08:14 Urine Glucose (UA) Negative (NEGATIVE) 11/03/19 08:14 Urine Ketones Negative (NEGATIVE) 11/03/19 08:14 Urine Occult Blood 4+ (NEGATIVE) 11/03/19 08:14 Urine Nitrite Negative (NEGATIVE) 11/03/19 08:14 Urine Bilirubin Negative (NEGATIVE) 11/03/19 08:14 Urine Urobilinogen Normal (NORMAL) 11/03/19 08:14 Ur Leukocyte Esterase 3+ (NEGATIVE) 11/03/19 08:14 Urine RBC Tntc /HPF (0-3) A 11/03/19 08:14 Urine WBC Tntc /HPF (0-5) A 11/03/19 08:14 Ur Squamous Epith Cells Rare /HPF (NEGATIVE) 11/03/19 08:14 Urine Bacteria 4+ /HPF (NEGATIVE) 11/03/19 08:14 Ur Culture Indicated? Yes/culture set up 11/03/19 08:14 Influenza Type A (PCR) Negative (NEGATIVE) 11/03/19 07:55 Influenza Type B (PCR) Negative (NEGATIVE) 11/03/19 07:55 - Plan (1) Acute hyperkalemia Status: Acute Plan: IV FLUIDS, CONTINUE TO MONITOR (2) Acute UTI Status: Acute Plan: IV FLUIDS, MEROPENEM 1G IV Q12H, CONTINUE TO MONITOR (3) AMS (altered mental status) Status: Acute Qualifiers: Altered mental status type: transient alteration of awareness Qualified Code(s): R40.4 - Transient alteration of awareness
[2019-11-08] MEDS: PROVENTIL NEB TX 0.083% 2.5MG/ 3ML IN SCH ×4 (00:53→16:59)
[2019-11-08] MEDS: HumuLIN R SC PRN ×3 (01:02→16:36)
[2019-11-08] MEDS: NS 1000 ML 1,000 ML IV SCH ×2 (03:22→16:27)
[2019-11-08 05:16] LABS: BASOPHILS # (AUTO) 0.1 X10^3/uL (0.0-0.1); BASOPHILS % (AUTO) 1.2 % (0.2-1.0); EOSINOPHILS # (AUTO) 0.5 x10^3/uL (0.0-0.2); EOSINOPHILS % (AUTO) 9.6 % (0.9-2.9); HEMATOCRIT 28.4 % (36.0-47.0); HEMOGLOBIN 9.5 g/dL (12.0-16.0); LYMPHOCYTES # (AUTO) 0.9 X10^3/uL (1.3-2.9); LYMPHOCYTES % (AUTO) 16.2 % (21.0-51.0); MEAN CORPUSCULAR HEMOGLOBIN 31.6 pg (27.0-34.0); MEAN CORPUSCULAR HGB CONC 33.4 g/dL (33.0-35.0); MEAN CORPUSCULAR VOLUME 94.7 fL (80.0-100.0); MEAN PLATELET VOLUME 7.9 fL (7.4-11.0); MONOCYTES # (AUTO) 0.6 x10^3/uL (0.3-0.8); MONOCYTES % (AUTO) 11.8 % (0.0-13.0); NEUTROPHILS # (AUTO) 3.4 x10^3/uL (2.2-4.8); NEUTROPHILS % (AUTO) 61.2 % (42.0-75.0); PLATELET COUNT 182 X10^3/uL (150.0-450.0); RED CELL DISTRIBUTION WIDTH 16.8 % (11.6-16.5); WHITE BLOOD COUNT 5.5 X10^3/uL (3.6-10.0)
[2019-11-08 05:30] LABS: ALBUMIN 2.1 g/dL (3.4-5.0); CALCIUM 7.9 mg/dL (8.5-10.1); CARBON DIOXIDE 21.9 mmol/L (21-32); COR CA(FOR HYPOALB) 9.4 mg/dL (8.5-10.1); CREATININE 1.39 mg/dL (0.55-1.02); MAGNESIUM 1.9 mg/dL (1.7-2.9); TOTAL PROTEIN 5.6 g/dL (6.4-8.2)
[2019-11-08] MEDS: NEURONTIN CAP 100 MG PO SCH ×3 (05:45→21:20)
[2019-11-08] MEDS ORDERED: PHARMACY COMMENT IV NR (08:30)
[2019-11-08] MEDS: VITAMIN D3 PO SCH (08:59)
[2019-11-08] MEDS: ZINC SULFATE PO SCH (08:59)
[2019-11-08] MEDS: COLACE CAP 100 MG PO SCH ×2 (08:59→21:20)
[2019-11-08] MEDS: KLONOPIN TAB 0.5 MG PO SCH ×2 (08:59→21:19)
[2019-11-08] MEDS: HEMOCYTE-PLUS PO SCH (09:01)
[2019-11-08] MEDS: TAB-A-VITE PO SCH (09:01)
[2019-11-08] MEDS: PROTONIX TAB 40 MG PO SCH (09:01)
[2019-11-08] MEDS: MILK OF MAGNESIA PO SCH ×2 (09:01→21:19)
[2019-11-08] MEDS: LOVENOX INJ 40 MG SYR SC SCH (09:01)
[2019-11-08] MEDS: PLAVIX PO SCH (09:01)
[2019-11-08] MEDS: BENADRYL CAP/TAB 25 MG PO SCH (09:01)
[2019-11-08] MEDS: COREG TAB 3.125 MG PO SCH ×2 (09:01→21:20)
[2019-11-08] MEDS: VITAMIN C PO SCH ×2 (09:10→21:21)
[2019-11-08 10:02] LABS: CREATININE 1.35 mg/dL (0.55-1.02)
[2019-11-08 10:07] LABS: VANCOMYCIN,TROUGH 21.6 ug/mL (15-20)
[2019-11-08] MEDS: VANCOMYCIN IV *PREMIX 1 G/200 ML BAG 1 G/200 ML PIGGYBACK IV SCH (10:11)
[2019-11-08] MEDS: MAGNESIUM SULFATE 1 GRAM/100 mL PREMIX 1 GM/100 ML BAG IV PRN ×2 (15:19→16:26)
[2019-11-08] MEDS: SNACK - Diabetic Appropriate PO SCH (19:00)
--- NOTE | 2019-11-08 19:11 | PCM.PROG ---
Progress Note - Progress Note for Day of Date of Exam: 11/08/19 - Subjective Subjective: IS BEING TREATED FOR ACUTE HYPERKALEMIA, UTI, ALTERED MENTAL STATUS, AND A RIGHT HEEL WOUND. TODAY, SHE IS ALERT AND ORIENTED, LYING IN BED ON MORNING ROUNDS. SHE REPORTS WEAKNESS AND LOWER ABDOMINAL PAIN TODAY. ON EXAMINATION, HEART IS REGULAR IN RATE AND RHYTHM. BILATERAL LUNGS ARE NOTED WITH DIMINISHED LUNG SOUNDS THROUGHOUT. ABDOMEN IS ROUND, SOFT, AND NOTED WITH MILD, DIFFUSE TENDERNESS THROUGHOUT. NORMAL BOWEL SOUNDS NOTED IN ALL QUADRANTS. THERE IS A 1.5X3CM WOUND NOTED TO THE RIGHT HEEL WITH A SMALL AMOUNT OF DRAINAGE. HER VITALS THIS MORNING ARE: 97.0-79-23-96%-152/64. LABS WERE OBTAINED. ABNORMAL LAB VALUES INCLUDE THE FOLLOWING: RBC 3.00, HGB 9.5, HCT 28.4, CHLORIDE 111, BUN 25, CREATININE 1.39, GLUCOSE 152, CALCIUM 7.9, TOTAL PROTEIN 5.6, ALBUMIN 2.1. FOOT CULTURE REVEALS GROWTH OF MRSA. URINE CULTURE REVEALS GROWTH OF ENTEROCOCCUS FAECALIS. SHE IS CURRENTLY RECEIVING NS AT 75 ML/HR, MEROPENEM 1G IV Q12H, MORPHINE 1-2MG IV Q4H PRN, AND HOME MEDICATIONS WERE RESUMED. OTHERWISE, WE WILL FOLLOW UP WITH AM LABS AND CONTINUE TO MONITOR. - Past Medical Family Social History Past Med/Fam/Surg Hx: No changes since H&P Allergies: Allergies ezetimibe [From Zetia] Allergy (Verified 09/16/19 20:38) Influenza Virus Vaccines Allergy (Verified 09/16/19 20:38) Penicillins Allergy (Verified 09/16/19 20:38) pneumococcal vaccine Allergy (Verified 09/16/19 20:38) ropinirole [From Requip] Allergy (Verified 09/16/19 20:38) - Review of Systems ROS: No change since H&P - Vital Signs and I&O's Vital Signs: Temperature 98.8 F Pulse Rate 79 Respiratory Rate 20 Blood Pressure [Left Arm] 175/75 Blood Pressure 157/70 O2 Sat by Pulse Oximetry 91 Intake and Output: Intake & Output 11/06/19 11/07/19 11/08/19 11/09/19 11:59 11:59 11:59 11:59 Intake Total 2367 / 2367 2688 / 2688 1930 / 1930 0 / 0 Output Total 2575 / 2575 2800 / 2800 3550 / 3550 700 / 700 Balance -208 / -208 -112 / -112 -1620 / -1620 -700 / -700 - Physical Exam Oriented: Normal Eyes: Normal Ear: Normal Nose: Normal Throat: Normal Respiratory: Generalized, Diminished Cardiovascular: Normal. negative: S3, S4, Murmur : Normal Auscultation: Bowel Sounds: Normal Tenderness: Suprapubic, Mild Skin: Normal Musculoskeletal: Normal Psychiatric: Normal Mood Description: Calm Affect: Normal Speech Pattern: Clear - Laboratory and Diagnostics Result Diagrams: 11/08/19 04:15 11/08/19 09:25 Labs: 11/03/19 07:50 Blood Blood Culture - Final 11/03/19 07:45 Blood Blood Culture - Final 11/04/19 11:45 Foot - Right Gram Stain - Final 11/04/19 11:45 Foot - Right Wound Culture - Final Methicillin Resis Staph Aureus 11/03/19 08:14 Urine,Catheterized Urine Culture - Final Enterococcus Faecalis Laboratory WBC 5.5 X10^3/uL (3.6-10.0) 11/08/19 04:15 RBC 3.00 X10^6/uL (3.5-5.4) L 11/08/19 04:15 Hgb 9.5 g/dL (12.0-16.0) L 11/08/19 04:15 Hct 28.4 % (36.0-47.0) L 11/08/19 04:15 MCV 94.7 fL (80.0-100.0) 11/08/19 04:15 MCH 31.6 pg (27.0-34.0) 11/08/19 04:15 MCHC 33.4 g/dL (33.0-35.0) 11/08/19 04:15 RDW 16.8 % (11.6-16.5) H 11/08/19 04:15 Plt Count 182 X10^3/uL (150.0-450.0) 11/08/19 04:15 MPV 7.9 fL (7.4-11.0) 11/08/19 04:15 Neut % (Auto) 61.2 % (42.0-75.0) 11/08/19 04:15 Lymph % (Auto) 16.2 % (21.0-51.0) L 11/08/19 04:15 [place] % (Auto) 11.8 % (0.0-13.0) 11/08/19 04:15 Eos % (Auto) 9.6 % (0.9-2.9) H 11/08/19 04:15 Baso % (Auto) 1.2 % (0.2-1.0) H 11/08/19 04:15 Neut # (Auto) 3.4 x10^3/uL (2.2-4.8) 11/08/19 04:15 Lymph # (Auto) 0.9 X10^3/uL (1.3-2.9) L 11/08/19 04:15 [place] # (Auto) 0.6 x10^3/uL (0.3-0.8) 11/08/19 04:15 Eos # (Auto) 0.5 x10^3/uL (0.0-0.2) H 11/08/19 04:15 Baso # (Auto) 0.1 X10^3/uL (0.0-0.1) 11/08/19 04:15 Absolute Nucleated RBC 0.0 /100WBC 11/08/19 04:15 Sodium 141 mmol/L (136-145) 11/08/19 04:15 Corrected Sodium 142 mmol/L (136-145) 11/08/19 04:15 Potassium 4.8 mmol/L (3.5-5.1) 11/08/19 04:15 Chloride 111 mmol/L (98-107) H 11/08/19 04:15 Carbon Dioxide 21.9 mmol/L (21-32) 11/08/19 04:15 BUN 25 mg/dL (7-18) H 11/08/19 04:15 Creatinine 1.35 mg/dL (0.55-1.02) H 11/08/19 09:25 Est GFR (MDRD) Af Amer 46 (>60) L 11/08/19 04:15 Est GFR (MDRD) Non-Af 38 (>60) L 11/08/19 04:15 Glucose 152 mg/dL (65-99) H 11/08/19 04:15 POC Glucose (mg/dL) 240 mg/dL (65-99) H 11/08/19 16:29 Lactic Acid 1.6 mmol/L (0.4-2.0) 11/03/19 07:50 Calcium 7.9 mg/dL (8.5-10.1) L 11/08/19 04:15 Corrected Calcium 9.4 mg/dL (8.5-10.1) 11/08/19 04:15 Magnesium 1.9 mg/dL (1.7-2.9) 11/08/19 04:15 Total Bilirubin 0.20 mg/dL (0.2-1.0) 11/08/19 04:15 AST 17 Units/L (15-37) 11/08/19 04:15 ALT 16 Units/L (12-78) 11/08/19 04:15 Alkaline Phosphatase 96 Units/L (46-116) 11/08/19 04:15 Creatine Kinase 42 Units/L (26-192) 11/07/19 04:56 CK-MB (CK-2) 1.4 ng/mL (0-4.0) 11/07/19 04:56 CK/CKMB % Calc 3.3 % (<4) 11/07/19 04:56 Troponin I 0.07 ng/mL (0-1.5) 11/07/19 04:56 B-Natriuretic Peptide 126 pg/mL (0-79) H 11/03/19 13:21 Total Protein 5.6 g/dL (6.4-8.2) L 11/08/19 04:15 Albumin 2.1 g/dL (3.4-5.0) L 11/08/19 04:15 Globulin 3.5 g/dL (2.5-4.5) 11/08/19 04:15 Albumin/Globulin Ratio 0.6 Ratio (1.1-2.1) L 11/08/19 04:15 Specimen Type Catherized urine 11/03/19 08:14 Urine Color Yellow (YELLOW) 11/03/19 08:14 Urine Appearance Cloudy (CLEAR) 11/03/19 08:14 Urine pH 5.0 (5.0 - 8.0) 11/03/19 08:14 Ur Specific [place] 1.015 (1.000-1.030) 11/03/19 08:14 Urine Protein 3+ (NEGATIVE) 11/03/19 08:14 Urine Glucose (UA) Negative (NEGATIVE) 11/03/19 08:14 Urine Ketones Negative (NEGATIVE) 11/03/19 08:14 Urine Occult Blood 4+ (NEGATIVE) 11/03/19 08:14 Urine Nitrite Negative (NEGATIVE) 11/03/19 08:14 Urine Bilirubin Negative (NEGATIVE) 11/03/19 08:14 Urine Urobilinogen Normal (NORMAL) 11/03/19 08:14 Ur Leukocyte Esterase 3+ (NEGATIVE) 11/03/19 08:14 Urine RBC Tntc /HPF (0-3) A 11/03/19 08:14 Urine WBC Tntc /HPF (0-5) A 11/03/19 08:14 Ur Squamous Epith Cells Rare /HPF (NEGATIVE) 11/03/19 08:14 Urine Bacteria 4+ /HPF (NEGATIVE) 11/03/19 08:14 Ur Culture Indicated? Yes/culture set up 11/03/19 08:14 Vancomycin Trough 21.6 ug/mL (15-20) H* 11/08/19 09:25 Influenza Type A (PCR) Negative (NEGATIVE) 11/03/19 07:55 Influenza Type B (PCR) Negative (NEGATIVE) 11/03/19 07:55 - Plan (1) Acute hyperkalemia Status: Acute Plan: IV FLUIDS, CONTINUE TO MONITOR (2) Acute UTI Status: Acute Plan: IV FLUIDS, MEROPENEM 1G IV Q12H, CONTINUE TO MONITOR (3) AMS (altered mental status) Status: Acute Qualifiers: Altered mental status type: transient alteration of awareness Qualified Code(s): R40.4 - Transient alteration of awareness
[2019-11-08] MEDS: ELAVIL PO SCH (21:19)
[2019-11-08] MEDS: ZANAFLEX PO SCH (21:20)
[2019-11-08] MEDS: ZOCOR TAB 40 MG PO SCH (21:21)
[2019-11-09] MEDS: PROVENTIL NEB TX 0.083% 2.5MG/ 3ML IN SCH ×5 (00:45→16:48)
[2019-11-09] MEDS: NS 1000 ML 1,000 ML IV SCH (05:21)
[2019-11-09 06:33] LABS: BASOPHILS # (AUTO) 0.1 X10^3/uL (0.0-0.1); BASOPHILS % (AUTO) 1.1 % (0.2-1.0); EOSINOPHILS # (AUTO) 0.6 x10^3/uL (0.0-0.2); EOSINOPHILS % (AUTO) 8.7 % (0.9-2.9); HEMATOCRIT 28.8 % (36.0-47.0); HEMOGLOBIN 9.5 g/dL (12.0-16.0); LYMPHOCYTES % (AUTO) 15.5 % (21.0-51.0); MEAN CORPUSCULAR HEMOGLOBIN 30.8 pg (27.0-34.0); MEAN CORPUSCULAR VOLUME 93.2 fL (80.0-100.0); MEAN PLATELET VOLUME 7.5 fL (7.4-11.0); MONOCYTES # (AUTO) 0.8 x10^3/uL (0.3-0.8); MONOCYTES % (AUTO) 11.8 % (0.0-13.0); NEUTROPHILS # (AUTO) 4.1 x10^3/uL (2.2-4.8); NEUTROPHILS % (AUTO) 62.9 % (42.0-75.0); PLATELET COUNT 204 X10^3/uL (150.0-450.0); RED CELL DISTRIBUTION WIDTH 16.8 % (11.6-16.5); WHITE BLOOD COUNT 6.6 X10^3/uL (3.6-10.0)
[2019-11-09] MEDS: NEURONTIN CAP 100 MG PO SCH ×3 (06:41→21:57)
[2019-11-09] MEDS: HumuLIN R SC PRN ×4 (06:42→21:00)
[2019-11-09 06:44] LABS: ALBUMIN 2.3 g/dL (3.4-5.0); CALCIUM 8.3 mg/dL (8.5-10.1); CARBON DIOXIDE 24.7 mmol/L (21-32); COR CA(FOR HYPOALB) 9.7 mg/dL (8.5-10.1); CREATININE 1.3 mg/dL (0.55-1.02); MAGNESIUM 2.4 mg/dL (1.7-2.9); TOTAL PROTEIN 5.9 g/dL (6.4-8.2)
[2019-11-09] MEDS: MILK OF MAGNESIA PO SCH ×2 (08:45→21:59)
[2019-11-09] MEDS: ZINC SULFATE PO SCH (08:45)
[2019-11-09] MEDS: COLACE CAP 100 MG PO SCH ×2 (08:45→21:56)
[2019-11-09] MEDS: LOVENOX INJ 40 MG SYR SC SCH (08:45)
[2019-11-09] MEDS: KLONOPIN TAB 0.5 MG PO SCH ×2 (08:46→21:57)
[2019-11-09] MEDS: VITAMIN D3 PO SCH (08:46)
[2019-11-09] MEDS: PROTONIX TAB 40 MG PO SCH (08:46)
[2019-11-09] MEDS: VITAMIN C PO SCH ×2 (08:46→21:57)
[2019-11-09] MEDS: BENADRYL CAP/TAB 25 MG PO SCH (08:46)
[2019-11-09] MEDS: HEMOCYTE-PLUS PO SCH (08:46)
[2019-11-09] MEDS: PLAVIX PO SCH (08:46)
[2019-11-09] MEDS: COREG TAB 3.125 MG PO SCH ×2 (08:46→21:58)
[2019-11-09] MEDS: TAB-A-VITE PO SCH (08:47)
[2019-11-09] MEDS ORDERED: VANCOMYCIN HCL 750 MG in D5W 250 ML IV 250 ML IV SCH (09:00)
[2019-11-09] MEDS: NORCO 10/325 TAB PO PRN ×2 (09:55→19:55)
[2019-11-09] MEDS: VANCOMYCIN HCL 750 MG in D5W 250 ML IV 250 ML IV SCH (15:04)
[2019-11-09] MEDS ORDERED: BUTT CREAM (COMPOUND) TOP PRN (19:19)
[2019-11-09] MEDS: SNACK - Diabetic Appropriate PO SCH (20:00)
[2019-11-09] MEDS: ZOCOR TAB 40 MG PO SCH (21:57)
[2019-11-09] MEDS: ELAVIL PO SCH (21:58)
[2019-11-09] MEDS: ZANAFLEX PO SCH (21:58)
[2019-11-10] MEDS: PROVENTIL NEB TX 0.083% 2.5MG/ 3ML IN SCH ×2 (00:45→05:00)
[2019-11-10 06:49] LABS: BASOPHILS # (AUTO) 0.1 X10^3/uL (0.0-0.1); BASOPHILS % (AUTO) 1.1 % (0.2-1.0); EOSINOPHILS # (AUTO) 0.6 x10^3/uL (0.0-0.2); EOSINOPHILS % (AUTO) 8.8 % (0.9-2.9); HEMATOCRIT 27.7 % (36.0-47.0); HEMOGLOBIN 9.3 g/dL (12.0-16.0); LYMPHOCYTES # (AUTO) 0.9 X10^3/uL (1.3-2.9); LYMPHOCYTES % (AUTO) 13.8 % (21.0-51.0); MEAN CORPUSCULAR HEMOGLOBIN 31.1 pg (27.0-34.0); MEAN CORPUSCULAR HGB CONC 33.4 g/dL (33.0-35.0); MEAN CORPUSCULAR VOLUME 93.2 fL (80.0-100.0); MEAN PLATELET VOLUME 7.6 fL (7.4-11.0); MONOCYTES # (AUTO) 0.7 x10^3/uL (0.3-0.8); NEUTROPHILS # (AUTO) 4.4 x10^3/uL (2.2-4.8); NEUTROPHILS % (AUTO) 65.3 % (42.0-75.0); PLATELET COUNT 209 X10^3/uL (150.0-450.0); RED BLOOD COUNT 2.98 X10^6/uL (3.5-5.4); RED CELL DISTRIBUTION WIDTH 16.1 % (11.6-16.5); WHITE BLOOD COUNT 6.7 X10^3/uL (3.6-10.0)
[2019-11-10 06:59] LABS: ALBUMIN 2.5 g/dL (3.4-5.0); CALCIUM 8.2 mg/dL (8.5-10.1); COR CA(FOR HYPOALB) 9.4 mg/dL (8.5-10.1); CREATININE 1.41 mg/dL (0.55-1.02)
[2019-11-10] MEDS: NEURONTIN CAP 100 MG PO SCH (07:05)
[2019-11-10] MEDS: LOVENOX INJ 40 MG SYR SC SCH (09:03)
[2019-11-10] MEDS: VITAMIN C PO SCH (09:04)
[2019-11-10] MEDS: VITAMIN D3 PO SCH (09:04)
[2019-11-10] MEDS: MILK OF MAGNESIA PO SCH (09:04)
[2019-11-10] MEDS: COLACE CAP 100 MG PO SCH (09:04)
[2019-11-10] MEDS: ZINC SULFATE PO SCH (09:04)
[2019-11-10] MEDS: HEMOCYTE-PLUS PO SCH (09:04)
[2019-11-10] MEDS: COREG TAB 3.125 MG PO SCH (09:04)
[2019-11-10] MEDS: KLONOPIN TAB 0.5 MG PO SCH (09:04)
[2019-11-10] MEDS: PROTONIX TAB 40 MG PO SCH (09:05)
[2019-11-10] MEDS: BENADRYL CAP/TAB 25 MG PO SCH (09:05)
[2019-11-10] MEDS: PLAVIX PO SCH (09:05)
[2019-11-10] MEDS: NORCO 10/325 TAB PO PRN (09:05)
[2019-11-10] MEDS: VANCOMYCIN HCL 750 MG in D5W 250 ML IV 250 ML IV SCH (09:06)
[2019-11-10] MEDS: TAB-A-VITE PO SCH (09:06)
[2019-11-10] MEDS: HumuLIN R SC PRN (11:44)
[2019-11-10] MEDS: NS 1000 ML 1,000 ML IV SCH (11:45)
[2019-11-10] MEDS ORDERED: XYLOCAINE 2 % (PLAIN) ONE (11:55)
[2019-11-10 12:07] VITALS: BP 132/60
[2019-11-12] MEDS ORDERED: PHARMACY COMMENT IV NR (08:30)
== END 2019-11-10 15:05 | DRG 690 ==
LOC: ER 07:18 → ICU 14:04 → MED/SURG 11-08 11:20
PROVIDERS: ADMIT Internal Medicine; ATTEND Internal Medicine
DX: K21.9 Gastro-esophageal reflux disease without esophagitis; B95.62 Methicillin resistant Staphylococcus aureus infection as the cause of diseases classified elsewhere; R40.4 Transient alteration of awareness; I25.10 Atherosclerotic heart disease of native coronary artery without angina pectoris; Z53.09 Procedure and treatment not carried out because of other contraindication; I87.2 Venous insufficiency (chronic) (peripheral); I10 Essential (primary) hypertension; X58.XXXA Exposure to other specified factors, initial encounter; N39.0 Urinary tract infection, site not specified; R94.31 Abnormal electrocardiogram [ECG] [EKG]; S90.921A Unspecified superficial injury of right foot, initial encounter; E87.5 Hyperkalemia
CPT/HCPCS: 36415; 51702; 70450; 71010; 71045; 74000; 74018; 76770; 80048; 80053; 80202; 81001; 82550; 82553; 82565; 83605; 83735; 83880; 84132; 84484; 85025; 87040; 87070; 87075; 87077; 87086; 87088; 87186; 87205; 87502; 93005; 94640; 96365; 96367; 96374; 96375; 99285; A4222; J0131; J0610; J1335; J1650; J1815; J1940; J2185; J2270; J2405; J3370; J3475; J3490; J7030; J7050; J7060; J7613

== ENCOUNTER 2020-04-10 11:22 | Inpatient (IN) ==
[2020-04-10] MEDS: NS 1000 ML 1,000 ML IV SCH (17:00)
[2020-04-10] MEDS ORDERED: PHARMACY CONSULT - VANCOMYCIN XX SCH (18:05)
[2020-04-10 19:11] LABS: BASOPHILS % (AUTO) 0.2 % (0.2-1.0); EOSINOPHILS # (AUTO) 0.1 x10^3/uL (0.0-0.2); EOSINOPHILS % (AUTO) 2.3 % (0.9-2.9); HEMATOCRIT 28.3 % (36.0-47.0); HEMOGLOBIN 9.3 g/dL (12.0-16.0); LYMPHOCYTES # (AUTO) 1.1 X10^3/uL (1.3-2.9); LYMPHOCYTES % (AUTO) 16.9 % (21.0-51.0); MEAN CORPUSCULAR HEMOGLOBIN 30.9 pg (27.0-34.0); MEAN CORPUSCULAR VOLUME 93.8 fL (80.0-100.0); MEAN PLATELET VOLUME 7.2 fL (7.4-11.0); MONOCYTES # (AUTO) 0.9 x10^3/uL (0.3-0.8); MONOCYTES % (AUTO) 13.3 % (0.0-13.0); NEUTROPHILS # (AUTO) 4.3 x10^3/uL (2.2-4.8); NEUTROPHILS % (AUTO) 67.3 % (42.0-75.0); PLATELET COUNT 94 X10^3/uL (150.0-450.0); RED BLOOD COUNT 3.02 X10^6/uL (3.5-5.4); RED CELL DISTRIBUTION WIDTH 16.6 % (11.6-16.5); WHITE BLOOD COUNT 6.4 X10^3/uL (3.6-10.0)
[2020-04-10 19:23] LABS: ALANINE AMINOTRANSFERASE 23 Units/L (12-78); ALBUMIN 2.6 g/dL (3.4-5.0); ALKALINE PHOSPHATASE 82 Units/L (46-116); ASPARTATE AMINO TRANSFERASE 30 Units/L (15-37); BLOOD UREA NITROGEN 63 mg/dL (7-18); CALCIUM 8.5 mg/dL (8.5-10.1); CARBON DIOXIDE 24.8 mmol/L (21-32); CHLORIDE 108 mmol/L (98-107); COR CA(FOR HYPOALB) 9.6 mg/dL (8.5-10.1); CREATININE 2.48 mg/dL (0.55-1.02); SODIUM 141 mmol/L (136-145); TOTAL PROTEIN 6.4 g/dL (6.4-8.2); eGFR NON BLACK RACES 20 (>60)
[2020-04-10 19:26] LABS: LACTIC ACID 0.9 mmol/L (0.4-2.0)
[2020-04-10] MEDS ORDERED: PHARMACY CONSULT LTC MEDICATIONS XX SCH (20:00)
[2020-04-10] MEDS ORDERED: D5 1/2 NS 1000 ML 1,000 ML IV ONE (20:19)
[2020-04-10] MEDS: D5 1/2 NS 1000 ML 1,000 ML IV SCH (20:32)
[2020-04-10] MEDS: SNACK - Diabetic Appropriate PO SCH (20:40)
[2020-04-10 22:23] VITALS: BMI 31.1
[2020-04-11] MEDS ORDERED: BUTT CREAM (COMPOUND) ONE (04:18)
[2020-04-11 04:40] LABS: BILIRUBIN,URINE NEGATIVE (NEGATIVE); BLOOD/HEMOGLOBIN,URINE 4+ (NEGATIVE); GLUCOSE, URINE NEGATIVE (NEGATIVE); KETONES,URINE NEGATIVE (NEGATIVE); LEUKOCYTE ESTERASE ,URINE 3+ (NEGATIVE); NITRITES,URINE NEGATIVE (NEGATIVE); PROTEIN,URINE 3+ (NEGATIVE); UROBILINOGEN,URINE NORMAL (NORMAL)
[2020-04-11 04:48] LABS: APPEARANCE,URINE CLOUDY (CLEAR); BACTERIA,URINE 1+ /HPF (NEGATIVE); COLOR,URINE YELLOW (YELLOW); RBC,URINE TNTC /HPF (0-3); SQUAMOUS EPITHELIAL CELL,UR RARE /HPF (NEGATIVE)
[2020-04-11 04:49] LABS: YEAST,URINE MODERATE /HPF (NEGATIVE)
[2020-04-11 05:36] LABS: BASOPHILS % (AUTO) 0.2 % (0.2-1.0); EOSINOPHILS # (AUTO) 0.2 x10^3/uL (0.0-0.2); EOSINOPHILS % (AUTO) 3.1 % (0.9-2.9); HEMATOCRIT 25.9 % (36.0-47.0); HEMOGLOBIN 8.6 g/dL (12.0-16.0); LYMPHOCYTES % (AUTO) 18.1 % (21.0-51.0); MEAN CORPUSCULAR HEMOGLOBIN 31.1 pg (27.0-34.0); MEAN CORPUSCULAR HGB CONC 33.1 g/dL (33.0-35.0); MEAN PLATELET VOLUME 7.6 fL (7.4-11.0); MONOCYTES % (AUTO) 17.4 % (0.0-13.0); NEUTROPHILS # (AUTO) 3.4 x10^3/uL (2.2-4.8); NEUTROPHILS % (AUTO) 61.2 % (42.0-75.0); PLATELET COUNT 86 X10^3/uL (150.0-450.0); RED BLOOD COUNT 2.75 X10^6/uL (3.5-5.4); RED CELL DISTRIBUTION WIDTH 16.4 % (11.6-16.5); WHITE BLOOD COUNT 5.5 X10^3/uL (3.6-10.0)
[2020-04-11 05:49] LABS: ALANINE AMINOTRANSFERASE 19 Units/L (12-78); ALBUMIN 2.4 g/dL (3.4-5.0); ALKALINE PHOSPHATASE 75 Units/L (46-116); ASPARTATE AMINO TRANSFERASE 25 Units/L (15-37); BLOOD UREA NITROGEN 53 mg/dL (7-18); CALCIUM 7.7 mg/dL (8.5-10.1); CARBON DIOXIDE 24.7 mmol/L (21-32); CHLORIDE 108 mmol/L (98-107); CREATININE 2.29 mg/dL (0.55-1.02); SODIUM 140 mmol/L (136-145); TOTAL PROTEIN 5.9 g/dL (6.4-8.2); eGFR NON BLACK RACES 22 (>60)
[2020-04-11] MEDS ORDERED: VANCOMYCIN HCL VIAL 1.25 G 1.25 G in D5W 250 ML IV 250 ML IV ONE (06:00)
[2020-04-11] MEDS ORDERED: PREPARATION H OINT RECTAL PRN (08:25)
[2020-04-11] MEDS ORDERED: VOLTAREN 1 % GEL MULTI DOSE TUBE TOP PRN (08:25)
[2020-04-11] MEDS: CIPRO IV 400 MG PREMIX* 400 MG/200 ML IV.SOLN. IV SCH (08:40)
[2020-04-11] MEDS ORDERED: CYMBALTA PO SCH (09:00)
[2020-04-11] MEDS ORDERED: BIOTIN 1000 MCG PO SCH (09:00)
[2020-04-11] MEDS: FERROUS GLUCONATE PO SCH (10:04)
[2020-04-11] MEDS: BENADRYL CAP/TAB 25 MG PO SCH (10:04)
[2020-04-11] MEDS: COREG TAB 3.125 MG PO SCH ×2 (10:04→21:22)
[2020-04-11] MEDS: ZINC SULFATE PO SCH (10:05)
[2020-04-11] MEDS: TAB-A-VITE PO SCH (10:05)
[2020-04-11] MEDS: SENOKOT PO SCH ×2 (10:05→21:21)
[2020-04-11] MEDS: PROTONIX TAB 40 MG PO SCH (10:06)
[2020-04-11] MEDS: PLAVIX PO SCH (10:07)
[2020-04-11] MEDS: NORCO 10/325 TAB PO PRN (10:08)
[2020-04-11] MEDS: VITAMIN D3 125 mcg (5,000 UNITS) PO SCH (10:10)
[2020-04-11] MEDS: NEURONTIN CAP 100 MG PO SCH ×2 (10:10→16:09)
[2020-04-11] MEDS: VITAMIN C PO SCH ×2 (10:10→21:22)
[2020-04-11] MEDS ORDERED: NS 1000 ML 0 ML ONE (11:05)
--- NOTE | 2020-04-11 11:25 | DR.H&P ---
H&P - History & Physical for Day of: H&P Date: 04/10/20 - Chief Complaint Chief Complaint: WEAKNESS, NON-HEALING ULCER TO RIGHT FOOT - History of Present Illness History of Present Illness: IS A 84 YEAR OLD PATIENT OF OURS. SHE IS A RESIDENT OF [facility]. SHE WAS A DIRECT ADMISSION TO THE HOSPITAL DUE TO DEHYDRATION, ACUTE ON CHRONIC RENAL FAILURE, UTI, AND A NON-HEALING WOUND TO THE RIGHT FOOT. AN OUTPATIENT WOUND CULTURE WAS OBTAINED ON 03/22/20 AND REVEALED GROWTH OF E.COLI AND MRSA. OUTPATIENT URINALYSIS OBTAINED ON 04/05/20 REVEALED WBC TNTC, RBC 10-20, LEUKOCYTES 3+, BACTERIA TRACE. SHE HAD BEEN RECEIVING CIPRO 500MG PO BID AT THE [facility] WITHOUT IMPROVEMENT IN SYMPTOMS. ON ARRIVAL TO THE HOSPITAL, PATIENT REPORTS INCREASED WEAKNESS OVER THE PAST SEVERAL DAYS. SHE IS NOTED WITH A STAGE 2 DIABETIC ULCER TO THE RIGHT HEEL. HER VITALS ON ARRIVAL WERE: 98.6-85-18-99%-133/60. LABS WERE OBTAINED. ABNORMAL LAB VALUES INCLUDE THE FOLLOWING: RBC 3.02, HGB 9.3, HCT 28.3, PLT COUNT 94, CHLORIDE 108, BUN 63, CREATININE 2.48, ALBUMIN 2.6. A URINALYSIS WAS OBTAINED AND REVEALED: WBC TNTC, RBC TNTC, LEUKOCYTES 3+, BACTERIA 1+, YEAST MODERATE. BLOOD, WOUND, AND URINE CULTURES WERE SET UP. SHE WAS STARTED ON D 51/2NS AT 80 ML/HR, CIPRO 400MG IV DAILY, VANCOMYCIN 1G IV DAILY, DIFLUCAN 100MG IV DAILY, HUMULIN R SLIDING SCALE, AND HER HOME MEDICATIONS WERE RESUMED. WE WILL CONTINUE WITH CURRENT PLAN OF CARE AND WOUND CARE TODAY. OTHERWISE, WE WILL FOLLOW UP WITH AM LABS AND CONTINUE TO MONITOR. - Past Medical History Past Medical History: Coronary Artery Disease, Hypertension, Diabetes, Renal Disease, Depression, Anemia, GERD, Arthritis, CHF Additional Medical History: Cataracts, Constipation, Urinary Tract Infections - Past Surgical History Surgical History: Angioplasty/Stents, Hysterectomy, Ortho Surgery, Other - Family History Family Medical History: Coronary Artery Disease, Hypertension - Social History Does patient currently use any type of tobacco product: No Have you used tobacco products in the last 12 months: No Type of Tobacco Use: None Does any household member use tobacco: No Alcohol Use: None Drug Use: None - Medications Home Medications: ezetimibe [From Zetia] Allergy (Verified 04/10/20 18:04) Influenza Virus Vaccines Allergy (Verified 04/10/20 18:04) Penicillins Allergy (Verified 04/10/20 18:04) pneumococcal vaccine Allergy (Verified 04/10/20 18:04) ropinirole [From Requip] Allergy (Verified 04/10/20 18:04) CONTINUE taking the following medications duloxetine 30 mg PO DAILY 04/10/20 [History] gabapentin 200 mg PO TID 04/10/20 [History] gabapentin 400 mg PO HS 04/10/20 [History] insulin detemir U-100 [Levemir U-100 Insulin] 10 unit SUBCUT HS 04/10/20 [History] - Review of Systems Constitutional: Fever, Weakness Eyes: No Symptoms Reported ENT: No Symptoms Reported Respiratory: No Symptoms Reported Cardiovascular: No Symptoms Reported Gastrointestinal: No Symptoms Reported Genitourinary: No Symptoms Reported Musculoskeletal: See HPI, Foot Pain (RIGHT FOOT PAIN ) Skin: Wound (RIGHT FOOT ) - Physical Exam Vital Signs: Temperature 99.0 F Pulse Rate [Left Apical] 95 Respiratory Rate 20 Blood Pressure [Left Arm] 133/60 Blood Pressure [Right Arm] 151/67 Blood Pressure 104/51 O2 Sat by Pulse Oximetry 96 Oriented: Normal Eyes: Normal Ear: Normal Nose: Normal Throat: Normal Respiratory: Diminished Throughout Cardiovascular: Normal : Normal Auscultation: Bowel Sounds: Normal Palpation: Normal Tenderness: Normal Skin: Red, Tender, Wound (STAGE TWO PRESSURE ULCER TO THE RIGHT HEEL ) Musculoskeletal: Normal Psychiatric: Normal Mood Description: Calm Affect: Normal Speech Pattern: Clear - Assessment/Plan (1) Sepsis Qualifiers: Sepsis type: methicillin resistant Staphylococcus aureus Severe sepsis acute organ dysfunction type: acute renal failure Acute renal failure type: unspecified Severe sepsis shock status: unspecified Status: Acute Plan: ADMIT, D51/2NS AT 80 ML/HR, CIPRO 400MG IV DAILY, VANCOMYCIN 1G IV DAILY, DIFLUCAN 100MG IV DAILY, HUMULIN R SLIDING SCALE, AND HER HOME MEDICATIONS WERE RESUMED. (2) UTI (urinary tract infection) Qualifiers: Urinary tract infection type: acute cystitis Hematuria presence: with hematuria Qualified Code(s): N30.01 - Acute cystitis with hematuria Status: Acute (3) Diabetic ulcer of heel Qualifiers: Diabetes mellitus type: type 2 Laterality: right Non-pressure ulcer stage: unspecified non-pressure ulcer stage Qualified Code(s): E11.621 - Type 2 diabetes mellitus with foot ulcer; L97.419 - Non-pressure chronic ulcer of right heel and midfoot with unspecified severity Status: Acute Plan: WOUND CARE, IV ANTIBIOTICS (4) Acute on chronic renal failure Qualifiers: Acute renal failure type: unspecified Chronic kidney disease stage: unspecified stage Qualified Code(s): N17.9 - Acute kidney failure, unspecified; N18.9 - Chronic kidney disease, unspecified Status: Acute - Allergies Allergies/Adverse Reactions: Allergies Allergy/AdvReac Type Severity Reaction Status Date / Time ezetimibe [From Zetia] Allergy Verified 04/10/20 18:04 Influenza Virus Vaccines Allergy Verified 04/10/20 18:04 Penicillins Allergy Verified 04/10/20 18:04 pneumococcal vaccine Allergy Verified 04/10/20 18:04 ropinirole [From Requip] Allergy Verified 04/10/20 18:04
[2020-04-11] MEDS: D5 1/2 NS 1000 ML 1,000 ML IV SCH ×2 (11:30→23:15)
[2020-04-11] MEDS: NS 1000 ML 1,000 ML IV SCH (11:31)
[2020-04-11] MEDS: DIFLUCAN 100 MG IV (MIX by PHARMACY)* 100 MG/50 ML BAG IV SCH (12:53)
[2020-04-11] MEDS ORDERED: ASCORBIC ACID COLLAGEN PO SCH (14:00)
[2020-04-11] MEDS ORDERED: ELAVIL ONE (19:46)
[2020-04-11] MEDS ORDERED: COLACE CAP 100 MG PO ONE (19:46)
[2020-04-11] MEDS ORDERED: ZOCOR TAB 40 MG PO ONE (19:47)
[2020-04-11] MEDS ORDERED: NEURONTIN CAP 400 MG PO SCH (21:00)
[2020-04-11] MEDS: COLACE CAP 100 MG PO SCH (21:21)
[2020-04-11] MEDS: ZOCOR TAB 40 MG PO SCH (21:22)
[2020-04-11] MEDS: ELAVIL PO SCH (21:23)
[2020-04-11] MEDS: SNACK - Diabetic Appropriate PO SCH (21:23)
[2020-04-12 06:12] LABS: BASOPHILS % (AUTO) 0.2 % (0.2-1.0); EOSINOPHILS # (AUTO) 0.1 x10^3/uL (0.0-0.2); EOSINOPHILS % (AUTO) 1.9 % (0.9-2.9); HEMATOCRIT 24.1 % (36.0-47.0); HEMOGLOBIN 8.1 g/dL (12.0-16.0); LYMPHOCYTES # (AUTO) 1.3 X10^3/uL (1.3-2.9); LYMPHOCYTES % (AUTO) 18.4 % (21.0-51.0); MEAN CORPUSCULAR HEMOGLOBIN 31.4 pg (27.0-34.0); MEAN CORPUSCULAR HGB CONC 33.5 g/dL (33.0-35.0); MEAN CORPUSCULAR VOLUME 93.7 fL (80.0-100.0); MONOCYTES # (AUTO) 1.3 x10^3/uL (0.3-0.8); MONOCYTES % (AUTO) 17.9 % (0.0-13.0); NEUTROPHILS # (AUTO) 4.5 x10^3/uL (2.2-4.8); NEUTROPHILS % (AUTO) 61.6 % (42.0-75.0); PLATELET COUNT 74 X10^3/uL (150.0-450.0); RED BLOOD COUNT 2.57 X10^6/uL (3.5-5.4); RED CELL DISTRIBUTION WIDTH 16.7 % (11.6-16.5); WHITE BLOOD COUNT 7.3 X10^3/uL (3.6-10.0)
[2020-04-12 06:28] LABS: ALBUMIN 2.3 g/dL (3.4-5.0); CALCIUM 7.4 mg/dL (8.5-10.1); CARBON DIOXIDE 22.7 mmol/L (21-32); COR CA(FOR HYPOALB) 8.8 mg/dL (8.5-10.1); CREATININE 2.36 mg/dL (0.55-1.02); TOTAL PROTEIN 5.5 g/dL (6.4-8.2)
[2020-04-12 06:56] LABS: BAND NEUTROPHILS % 13 % (0-10); PLATELET MORPHOLOGY COMMENT NORMAL (NORMAL)
[2020-04-12] MEDS: FERROUS GLUCONATE PO SCH (09:04)
[2020-04-12] MEDS: CIPRO IV 400 MG PREMIX* 400 MG/200 ML IV.SOLN. IV SCH (09:04)
[2020-04-12] MEDS: BENADRYL CAP/TAB 25 MG PO SCH (09:05)
[2020-04-12] MEDS: COREG TAB 3.125 MG PO SCH ×2 (09:05→20:52)
[2020-04-12] MEDS: PROTONIX TAB 40 MG PO SCH (09:05)
[2020-04-12] MEDS: SENOKOT PO SCH ×2 (09:05→20:34)
[2020-04-12] MEDS: TAB-A-VITE PO SCH (09:05)
[2020-04-12] MEDS: PLAVIX PO SCH (09:05)
[2020-04-12] MEDS: ZINC SULFATE PO SCH (09:05)
[2020-04-12] MEDS: VITAMIN C PO SCH ×2 (09:06→20:34)
[2020-04-12] MEDS: VITAMIN D3 125 mcg (5,000 UNITS) PO SCH (09:07)
[2020-04-12] MEDS: NEURONTIN CAP 100 MG PO SCH ×3 (09:19→18:03)
[2020-04-12] MEDS: DIFLUCAN 100 MG IV (MIX by PHARMACY)* 100 MG/50 ML BAG IV SCH (10:28)
[2020-04-12] MEDS: VANCOMYCIN HCL 1 G in D5W 250 ML IV 250 ML IV SCH (11:40)
[2020-04-12] MEDS: D5 1/2 NS 1000 ML 1,000 ML IV SCH (16:00)
[2020-04-12] MEDS ORDERED: VANCOMYCIN HCL 750 MG VIAL 750 MG in D5W 250 ML IV 250 ML IV SCH (18:00)
[2020-04-12] MEDS: ZOCOR TAB 40 MG PO SCH (20:34)
[2020-04-12] MEDS: COLACE CAP 100 MG PO SCH (20:34)
[2020-04-12] MEDS: ELAVIL PO SCH (20:34)
[2020-04-12] MEDS: SNACK - Diabetic Appropriate PO SCH (20:52)
[2020-04-13] MEDS: D5 1/2 NS 1000 ML 1,000 ML IV SCH ×2 (03:00→16:39)
[2020-04-13] MEDS: ACCUNEB 1.25 MG NEBULE IN PRN (09:00)
[2020-04-13 09:40] LABS: BASOPHILS % (AUTO) 0.2 % (0.2-1.0); EOSINOPHILS # (AUTO) 0.2 x10^3/uL (0.0-0.2); HEMATOCRIT 23.2 % (36.0-47.0); HEMOGLOBIN 7.8 g/dL (12.0-16.0); LYMPHOCYTES # (AUTO) 1.3 X10^3/uL (1.3-2.9); LYMPHOCYTES % (AUTO) 12.9 % (21.0-51.0); MEAN CORPUSCULAR HEMOGLOBIN 31.4 pg (27.0-34.0); MEAN CORPUSCULAR HGB CONC 33.7 g/dL (33.0-35.0); MEAN CORPUSCULAR VOLUME 93.2 fL (80.0-100.0); MEAN PLATELET VOLUME 8.1 fL (7.4-11.0); MONOCYTES # (AUTO) 1.3 x10^3/uL (0.3-0.8); MONOCYTES % (AUTO) 13.4 % (0.0-13.0); NEUTROPHILS % (AUTO) 71.5 % (42.0-75.0); PLATELET COUNT 76 X10^3/uL (150.0-450.0); RED BLOOD COUNT 2.49 X10^6/uL (3.5-5.4); RED CELL DISTRIBUTION WIDTH 16.5 % (11.6-16.5); WHITE BLOOD COUNT 9.8 X10^3/uL (3.6-10.0)
[2020-04-13] MEDS: PROTONIX TAB 40 MG PO SCH (09:43)
[2020-04-13] MEDS: PLAVIX PO SCH (09:43)
[2020-04-13] MEDS: NEURONTIN CAP 100 MG PO SCH ×3 (09:43→16:38)
[2020-04-13] MEDS: BENADRYL CAP/TAB 25 MG PO SCH (09:44)
[2020-04-13] MEDS: SENOKOT PO SCH ×2 (09:44→21:10)
[2020-04-13] MEDS: DIFLUCAN 100 MG IV (MIX by PHARMACY)* 100 MG/50 ML BAG IV SCH (09:45)
[2020-04-13] MEDS: ZINC SULFATE PO SCH (09:45)
[2020-04-13] MEDS: TAB-A-VITE PO SCH (09:45)
[2020-04-13] MEDS: VITAMIN D3 125 mcg (5,000 UNITS) PO SCH (09:45)
[2020-04-13] MEDS: CIPRO IV 400 MG PREMIX* 400 MG/200 ML IV.SOLN. IV SCH (09:46)
[2020-04-13] MEDS: COREG TAB 3.125 MG PO SCH ×2 (09:46→21:10)
[2020-04-13] MEDS: FERROUS GLUCONATE PO SCH (09:46)
[2020-04-13] MEDS: VANCOMYCIN HCL 1 G in D5W 250 ML IV 250 ML IV SCH (09:46)
[2020-04-13 09:52] LABS: ALBUMIN 2.2 g/dL (3.4-5.0); CALCIUM 7.6 mg/dL (8.5-10.1); CARBON DIOXIDE 18.2 mmol/L (21-32); CREATININE 2.26 mg/dL (0.55-1.02); TOTAL PROTEIN 5.3 g/dL (6.4-8.2)
[2020-04-13 10:17] LABS: PLATELET MORPHOLOGY COMMENT NORMAL (NORMAL)
[2020-04-13 10:21] LABS: BAND NEUTROPHILS % 26 % (0-10)
[2020-04-13 10:22] LABS: METAMYELOCYTES % 2
[2020-04-13] MEDS: VITAMIN C PO SCH ×2 (13:38→21:11)
[2020-04-13] MEDS: SNACK - Diabetic Appropriate PO SCH (20:00)
[2020-04-13] MEDS: COLACE CAP 100 MG PO SCH (21:10)
[2020-04-13] MEDS: ELAVIL PO SCH (21:10)
[2020-04-13] MEDS: NORCO 10/325 TAB PO PRN (21:10)
[2020-04-13] MEDS: ZOCOR TAB 40 MG PO SCH (21:11)
[2020-04-14] MEDS: D5 1/2 NS 1000 ML 1,000 ML IV SCH ×2 (02:15→15:33)
[2020-04-14 05:27] LABS: BASOPHILS % (AUTO) 0.2 % (0.2-1.0); EOSINOPHILS # (AUTO) 0.2 x10^3/uL (0.0-0.2); EOSINOPHILS % (AUTO) 1.6 % (0.9-2.9); HEMOGLOBIN 8.9 g/dL (12.0-16.0); LYMPHOCYTES # (AUTO) 1.5 X10^3/uL (1.3-2.9); LYMPHOCYTES % (AUTO) 13.7 % (21.0-51.0); MEAN CORPUSCULAR HEMOGLOBIN 30.9 pg (27.0-34.0); MEAN CORPUSCULAR VOLUME 93.8 fL (80.0-100.0); MEAN PLATELET VOLUME 8.1 fL (7.4-11.0); MONOCYTES # (AUTO) 1.1 x10^3/uL (0.3-0.8); MONOCYTES % (AUTO) 10.1 % (0.0-13.0); NEUTROPHILS % (AUTO) 74.4 % (42.0-75.0); PLATELET COUNT 94 X10^3/uL (150.0-450.0); RED BLOOD COUNT 2.88 X10^6/uL (3.5-5.4); RED CELL DISTRIBUTION WIDTH 16.3 % (11.6-16.5); WHITE BLOOD COUNT 10.7 X10^3/uL (3.6-10.0)
[2020-04-14 05:50] LABS: ALBUMIN 2.3 g/dL (3.4-5.0); CALCIUM 7.5 mg/dL (8.5-10.1); CARBON DIOXIDE 21.8 mmol/L (21-32); COR CA(FOR HYPOALB) 8.9 mg/dL (8.5-10.1); CREATININE 2.29 mg/dL (0.55-1.02); TOTAL PROTEIN 5.8 g/dL (6.4-8.2)
[2020-04-14] MEDS: HumuLIN R SUBCUT PRN ×2 (06:12→20:50)
[2020-04-14 06:36] LABS: PLATELET MORPHOLOGY COMMENT NORMAL (NORMAL)
[2020-04-14] MEDS: BENADRYL CAP/TAB 25 MG PO SCH (08:59)
[2020-04-14] MEDS: PLAVIX PO SCH (08:59)
[2020-04-14] MEDS: CIPRO IV 400 MG PREMIX* 400 MG/200 ML IV.SOLN. IV SCH (08:59)
[2020-04-14] MEDS: TAB-A-VITE PO SCH (09:00)
[2020-04-14] MEDS: SENOKOT PO SCH ×2 (09:01→20:41)
[2020-04-14] MEDS: COREG TAB 3.125 MG PO SCH ×2 (09:02→20:40)
[2020-04-14] MEDS: ZINC SULFATE PO SCH (09:02)
[2020-04-14] MEDS: NEURONTIN CAP 100 MG PO SCH ×3 (09:02→17:02)
[2020-04-14] MEDS: VANCOMYCIN HCL 1 G in D5W 250 ML IV 250 ML IV SCH (09:03)
[2020-04-14] MEDS: FERROUS GLUCONATE PO SCH (09:03)
[2020-04-14] MEDS: PROTONIX TAB 40 MG PO SCH (09:03)
[2020-04-14] MEDS: VITAMIN D3 125 mcg (5,000 UNITS) PO SCH (09:04)
[2020-04-14] MEDS: VITAMIN C PO SCH ×2 (09:04→20:41)
[2020-04-14] MEDS: DIFLUCAN 100 MG IV (MIX by PHARMACY)* 100 MG/50 ML BAG IV SCH (09:20)
[2020-04-14] MEDS: ACCUNEB 1.25 MG NEBULE IN PRN (15:40)
[2020-04-14] MEDS: SNACK - Diabetic Appropriate PO SCH (20:40)
[2020-04-14] MEDS: COLACE CAP 100 MG PO SCH (20:40)
[2020-04-14] MEDS: ELAVIL PO SCH (20:41)
[2020-04-14] MEDS: NORCO 10/325 TAB PO PRN (20:42)
[2020-04-14] MEDS: ZOCOR TAB 40 MG PO SCH (20:42)
--- NOTE | 2020-04-14 23:01 | PCM.PROG ---
Progress Note - Progress Note for Day of Date of Exam: 04/12/20 - Subjective Subjective: IS BEING TREATED FOR DEHYDRATION, ACUTE ON CHRONIC RENAL FAILURE, SEPSIS, UTI, AND A DIABETIC ULCER OF THE RIGHT HEEL. TODAY, SHE IS ALERT AND ORIENTED, LYING IN BED ON MORNING ROUNDS. SHE CONTINUES WITH COMPLAINTS OF WEAKNESS TODAY. ON EXAMINATION, HEART IS REGULAR IN RATE AND RHYT HM. BILATERAL LUNGS ARE NOTED WITH DIMINISHED LUNG SOUNDS THROUGHOUT. ABDOMEN IS ROUND, SOFT, AND NON-TENDER WITH NORMAL BOWEL SOUNDS NOTED IN ALL QUADRANTS. THERE IS A STAGE 2 DIABETIC ULCER NOTED TO THE RIGHT HEEL. NO DRAINAGE IS NOTED AT THAT TIME. HER VITALS THIS MORNING ARE: 98.1-95-17-97%-135/76. LABS WERE OBTAINED. ABNORMAL LAB VALUES INCLUDE THE FOLLOWING: RBC 2.57, HGB 8.1, HCT 24.1, PLT COUNT 74, BUN 46, CREATININE 2.36, GLUCOSE 177, CALCIUM 7.4, TOTAL PROTEIN 5.5, ALBUMIN 2.3. BLOOD, URINE, AND WOUND CULTURE ARE PENDING. SHE IS CURRENTLY RECEIVING D51/2NS AT 80 ML/HR, CIPRO 400MG IV DAILY, VANCOMYCIN 1G IV DAILY, DIFLUCAN 100MG IV DAILY, HUMULIN R SLIDING SCALE, AND HER HOME MEDIC ATIONS WERE RESUMED. WE WILL CONTINUE WITH CURRENT PLAN OF CARE AND WOUND CARE TODAY. OTHERWISE, WE WILL FOLLOW UP WITH AM LABS AND CONTINUE TO MONITOR. - Past Medical Family Social History Past Med/Fam/Surg Hx: No changes since H&P Allergies: Allergies ezetimibe [From Zetia] Allergy (Verified 04/10/20 18:04) Influenza Virus Vaccines Allergy (Verified 04/10/20 18:04) Penicillins Allergy (Verified 04/10/20 18:04) pneumococcal vaccine Allergy (Verified 04/10/20 18:04) ropinirole [From Requip] Allergy (Verified 04/10/20 18:04) - Review of Systems ROS: No change since H&P - Vital Signs and I&O's Vital Signs: Temperature 99.7 F Pulse Rate [Left Apical] 92 Pulse Rate 90 Respiratory Rate 20 Blood Pressure [Left Arm] 168/65 Blood Pressure [Right Arm] 135/57 Blood Pressure 104/51 O2 Sat by Pulse Oximetry 98 Intake and Output: Intake & Output 04/12/20 04/13/20 04/14/2020 11:59 11:59 11:59 11:59 Intake Total 1680 / 1680 1040 / 1040 1240 / 1240 120 / 120 Balance 1680 / 1680 1040 / 1040 1240 / 1240 120 / 120 - Physical Exam Oriented: Normal Eyes: Normal Ear: Normal Nose: Normal Throat: Normal Cardiovascular: Normal : Normal Auscultation: Bowel Sounds: Normal Palpation: Normal Tenderness: Normal Skin: Red, Tender, Wound (STAGE TWO PRESSURE ULCER TO THE RIGHT HEEL ) Musculoskeletal: Normal Psychiatric: Normal Mood Description: Calm Affect: Normal Speech Pattern: Clear, Appropriate - Laboratory and Diagnostics Result Diagrams: 04/14/20 04:05 04/14/20 04:05 Labs: 04/10/20 16:09 Foot - Right Wound Culture - Final 04/11/20 04:25 Urine,Clean Catch Urine Culture - Final 04/10/20 18:45 Blood Blood Culture - Preliminary 04/10/20 18:40 Blood Blood Culture - Preliminary Laboratory WBC 10.7 X10^3/uL (3.6-10.0) H 04/14/20 04:05 RBC 2.88 X10^6/uL (3.5-5.4) L 04/14/20 04:05 Hgb 8.9 g/dL (12.0-16.0) L 04/14/20 04:05 Hct 27.0 % (36.0-47.0) L 04/14/20 04:05 MCV 93.8 fL (80.0-100.0) 04/14/20 04:05 MCH 30.9 pg (27.0-34.0) 04/14/20 04:05 MCHC 33.0 g/dL (33.0-35.0) 04/14/20 04:05 RDW 16.3 % (11.6-16.5) 04/14/20 04:05 Plt Count 94 X10^3/uL (150.0-450.0) L 04/14/20 04:05 Plt Count Comment Decreased (ADEQUATE) A 04/14/20 04:05 MPV 8.1 fL (7.4-11.0) 04/14/20 04:05 Neut % (Auto) 74.4 % (42.0-75.0) 04/14/20 04:05 Lymph % (Auto) 13.7 % (21.0-51.0) L 04/14/20 04:05 [place] % (Auto) 10.1 % (0.0-13.0) 04/14/20 04:05 Eos % (Auto) 1.6 % (0.9-2.9) 04/14/20 04:05 Baso % (Auto) 0.2 % (0.2-1.0) 04/14/20 04:05 Neut # (Auto) 8.0 x10^3/uL (2.2-4.8) H 04/14/20 04:05 Lymph # (Auto) 1.5 X10^3/uL (1.3-2.9) 04/14/20 04:05 [place] # (Auto) 1.1 x10^3/uL (0.3-0.8) H 04/14/20 04:05 Eos # (Auto) 0.2 x10^3/uL (0.0-0.2) 04/14/20 04:05 Baso # (Auto) 0.0 X10^3/uL (0.0-0.1) 04/14/20 04:05 Absolute Nucleated RBC 0.1 /100WBC 04/14/20 04:05 Total Counted 100 04/14/20 04:05 Neutrophils % (Manual) 76 % (39-76) 04/14/20 04:05 Band Neutrophils % 26 % (0-10) H 04/13/20 08:45 Lymphocytes % (Manual) 15 % (13-43) 04/14/20 04:05 Monocytes % (Manual) 9 % (4-9) 04/14/20 04:05 Eosinophils % (Manual) 2 % (0-6) 04/13/20 08:45 Metamyelocytes % 2 04/13/20 08:45 Plt Morphology Comment Normal (NORMAL) 04/14/20 04:05 RBC Morphology Normal (NORMAL) 04/14/20 04:05 Sodium 136 mmol/L (136-145) 04/14/20 04:05 Corrected Sodium 139 mmol/L (136-145) 04/14/20 04:05 Potassium 4.1 mmol/L (3.5-5.1) 04/14/20 04:05 Chloride 106 mmol/L (98-107) 04/14/20 04:05 Carbon Dioxide 21.8 mmol/L (21-32) 04/14/20 04:05 BUN 31 mg/dL (7-18) H 04/14/20 04:05 Creatinine 2.29 mg/dL (0.55-1.02) H 04/14/20 04:05 Est GFR (MDRD) Af Amer 26 (>60) L 04/14/20 04:05 Est GFR (MDRD) Non-Af 22 (>60) L 04/14/20 04:05 Glucose 215 mg/dL (65-99) H 04/14/20 04:05 POC Glucose (mg/dL) 208 mg/dL (65-99) H 04/14/20 20:29 Lactic Acid 0.9 mmol/L (0.4-2.0) 04/10/20 18:40 Calcium 7.5 mg/dL (8.5-10.1) L 04/14/20 04:05 Corrected Calcium 8.9 mg/dL (8.5-10.1) 04/14/20 04:05 Total Bilirubin 0.30 mg/dL (0.2-1.0) 04/14/20 04:05 AST 26 Units/L (15-37) 04/14/20 04:05 ALT 18 Units/L (12-78) 04/14/20 04:05 Alkaline Phosphatase 73 Units/L (46-116) 04/14/20 04:05 Total Protein 5.8 g/dL (6.4-8.2) L 04/14/20 04:05 Albumin 2.3 g/dL (3.4-5.0) L 04/14/20 04:05 Globulin 3.5 g/dL (2.5-4.5) 04/14/20 04:05 Albumin/Globulin Ratio 0.7 Ratio (1.1-2.1) L 04/14/20 04:05 Specimen Type Catherized urine 04/10/20 04:25 Urine Color Yellow (YELLOW) 04/10/20 04:25 Urine Appearance Cloudy (CLEAR) 04/10/20 04:25 Urine pH 6.0 (5.0 - 8.0) 04/10/20 04:25 Ur Specific [place] 1.015 (1.000-1.030) 04/10/20 04:25 Urine Protein 3+ (NEGATIVE) 04/10/20 04:25 Urine Glucose (UA) Negative (NEGATIVE) 04/10/20 04:25 Urine Ketones Negative (NEGATIVE) 04/10/20 04:25 Urine Occult Blood 4+ (NEGATIVE) 04/10/20 04:25 Urine Nitrite Negative (NEGATIVE) 04/10/20 04:25 Urine Bilirubin Negative (NEGATIVE) 04/10/20 04:25 Urine Urobilinogen Normal (NORMAL) 04/10/20 04:25 Ur Leukocyte Esterase 3+ (NEGATIVE) 04/10/20 04:25 Urine RBC Tntc /HPF (0-3) A 04/10/20 04:25 Urine WBC Tntc /HPF (0-5) A 04/10/20 04:25 Ur Squamous Epith Cells Rare /HPF (NEGATIVE) 04/10/20 04:25 Urine Bacteria 1+ /HPF (NEGATIVE) 04/10/20 04:25 Urine Yeast Moderate /HPF (NEGATIVE) 04/10/20 04:25 Ur Culture Indicated? Yes/culture set up 04/10/20 04:25 - Plan (1) Sepsis Status: Acute Qualifiers: Sepsis type: methicillin resistant Staphylococcus aureus Severe sepsis acute organ dysfunction type: acute renal failure Acute renal failure type: unspecified Severe sepsis shock status: unspecified Plan: D51/2NS AT 80 ML/HR, CIPRO 400MG IV DAILY, VANCOMYCIN 1G IV DAILY, DIFLUCAN 100MG IV DAILY, HUMULIN R SLIDING SCALE, AND HER HOME MEDICATIONS WERE RESUMED. (2) UTI (urinary tract infection) Status: Acute Qualifiers: Urinary tract infection type: acute cystitis Hematuria presence: with hematuria Qualified Code(s): N30.01 - Acute cystitis with hematuria (3) Diabetic ulcer of heel Status: Acute Qualifiers: Diabetes mellitus type: type 2 Laterality: right Non-pressure ulcer stage: unspecified non-pressure ulcer stage Qualified Code(s): E11.621 - Type 2 diabetes mellitus with foot ulcer; L97.419 - Non-pressure chronic ulcer of right heel and midfoot with unspecified severity Plan: WOUND CARE, IV ANTIBIOTICS
[2020-04-15] MEDS: D5 1/2 NS 1000 ML 1,000 ML IV SCH ×3 (04:52→21:49)
[2020-04-15 05:58] LABS: BASOPHILS % (AUTO) 0.3 % (0.2-1.0); EOSINOPHILS # (AUTO) 0.2 x10^3/uL (0.0-0.2); EOSINOPHILS % (AUTO) 1.8 % (0.9-2.9); HEMATOCRIT 26.1 % (36.0-47.0); HEMOGLOBIN 8.6 g/dL (12.0-16.0); LYMPHOCYTES # (AUTO) 1.2 X10^3/uL (1.3-2.9); LYMPHOCYTES % (AUTO) 11.3 % (21.0-51.0); MEAN CORPUSCULAR HEMOGLOBIN 30.4 pg (27.0-34.0); MEAN CORPUSCULAR HGB CONC 32.8 g/dL (33.0-35.0); MEAN CORPUSCULAR VOLUME 92.5 fL (80.0-100.0); MEAN PLATELET VOLUME 7.9 fL (7.4-11.0); MONOCYTES % (AUTO) 9.6 % (0.0-13.0); NEUTROPHILS # (AUTO) 8.4 x10^3/uL (2.2-4.8); PLATELET COUNT 147 X10^3/uL (150.0-450.0); RED BLOOD COUNT 2.82 X10^6/uL (3.5-5.4); RED CELL DISTRIBUTION WIDTH 16.6 % (11.6-16.5); WHITE BLOOD COUNT 10.9 X10^3/uL (3.6-10.0)
[2020-04-15 06:18] LABS: ALBUMIN 2.3 g/dL (3.4-5.0); CALCIUM 7.7 mg/dL (8.5-10.1); CARBON DIOXIDE 22.1 mmol/L (21-32); COR CA(FOR HYPOALB) 9.1 mg/dL (8.5-10.1); CREATININE 2.02 mg/dL (0.55-1.02); TOTAL PROTEIN 5.9 g/dL (6.4-8.2)
[2020-04-15 06:55] LABS: PLATELET MORPHOLOGY COMMENT NORMAL (NORMAL)
[2020-04-15] MEDS ORDERED: PHARMACY COMMENT IV NR (08:30)
[2020-04-15] MEDS: ACCUNEB 1.25 MG NEBULE IN PRN (09:10)
[2020-04-15 09:29] LABS: CREATININE 2.08 mg/dL (0.55-1.02)
[2020-04-15] MEDS: PROTONIX TAB 40 MG PO SCH (09:30)
[2020-04-15] MEDS: FERROUS GLUCONATE PO SCH (09:30)
[2020-04-15] MEDS: BENADRYL CAP/TAB 25 MG PO SCH (09:30)
[2020-04-15] MEDS: COREG TAB 3.125 MG PO SCH ×2 (09:30→20:40)
[2020-04-15] MEDS: VITAMIN D3 125 mcg (5,000 UNITS) PO SCH (09:30)
[2020-04-15] MEDS: NEURONTIN CAP 100 MG PO SCH ×3 (09:30→17:53)
[2020-04-15] MEDS: PLAVIX PO SCH (09:30)
[2020-04-15] MEDS: SENOKOT PO SCH ×2 (09:30→20:40)
[2020-04-15] MEDS: VITAMIN C PO SCH ×2 (09:30→20:41)
[2020-04-15] MEDS: TAB-A-VITE PO SCH (09:30)
[2020-04-15] MEDS: DIFLUCAN 100 MG IV (MIX by PHARMACY)* 100 MG/50 ML BAG IV SCH (09:30)
[2020-04-15] MEDS: ZINC SULFATE PO SCH (09:30)
[2020-04-15 09:34] LABS: VANCOMYCIN,TROUGH 27.9 ug/mL (15-20)
[2020-04-15] MEDS: CIPRO IV 400 MG PREMIX* 400 MG/200 ML IV.SOLN. IV SCH (11:35)
[2020-04-15] MEDS: HumuLIN R SUBCUT PRN (13:27)
--- NOTE | 2020-04-15 15:47 | RAD ---
HISTORYSOB, FEVERSTUDYCHEST, 1 VIEWCOMPARISONChest film April 07, 2020FINDINGSThe trachea is midline. A left subclavian port is in place at the junction of the left subclavian to the superior vena cava. The cardiac silhouette is unremarkable . The lungs are clear without focal infiltrate or effusion. The bony thorax is unremarkable.IMPRESSIONNo acute cardiopulmonary disease and no change from recent film April 07, 2020..Electronically signed by: JOSE KERR (Apr 15, 2020 15:46:16)
[2020-04-15] MEDS: COLACE CAP 100 MG PO SCH (20:40)
[2020-04-15] MEDS: ELAVIL PO SCH (20:40)
[2020-04-15] MEDS: SNACK - Diabetic Appropriate PO SCH (20:41)
[2020-04-15] MEDS: ZOCOR TAB 40 MG PO SCH (20:41)
[2020-04-15] MEDS: NORCO 10/325 TAB PO PRN (20:42)
[2020-04-16 06:00] LABS: ALBUMIN 1.9 g/dL (3.4-5.0); CARBON DIOXIDE 19.9 mmol/L (21-32); COR CA(FOR HYPOALB) 8.7 mg/dL (8.5-10.1); CREATININE 2.22 mg/dL (0.55-1.02); TOTAL PROTEIN 5.1 g/dL (6.4-8.2)
[2020-04-16 06:03] LABS: BASOPHILS % (AUTO) 0.2 % (0.2-1.0); EOSINOPHILS # (AUTO) 0.1 x10^3/uL (0.0-0.2); EOSINOPHILS % (AUTO) 1.7 % (0.9-2.9); HEMATOCRIT 23.2 % (36.0-47.0); HEMOGLOBIN 7.7 g/dL (12.0-16.0); LYMPHOCYTES % (AUTO) 12.2 % (21.0-51.0); MEAN CORPUSCULAR HEMOGLOBIN 30.8 pg (27.0-34.0); MEAN CORPUSCULAR HGB CONC 33.3 g/dL (33.0-35.0); MEAN CORPUSCULAR VOLUME 92.4 fL (80.0-100.0); MEAN PLATELET VOLUME 7.7 fL (7.4-11.0); MONOCYTES # (AUTO) 0.8 x10^3/uL (0.3-0.8); MONOCYTES % (AUTO) 9.9 % (0.0-13.0); NEUTROPHILS # (AUTO) 6.2 x10^3/uL (2.2-4.8); PLATELET COUNT 176 X10^3/uL (150.0-450.0); RED BLOOD COUNT 2.51 X10^6/uL (3.5-5.4); RED CELL DISTRIBUTION WIDTH 16.3 % (11.6-16.5); WHITE BLOOD COUNT 8.2 X10^3/uL (3.6-10.0)
[2020-04-16 07:18] LABS: BAND NEUTROPHILS % 4 % (0-10); HYPOCHROMASIA SLIGHT; PLATELET MORPHOLOGY COMMENT NORMAL (NORMAL)
--- NOTE | 2020-04-16 08:37 | PCM.PROG ---
Progress Note - Progress Note for Day of Date of Exam: 04/13/20 - Subjective Subjective: IS BEING TREATED FOR DEHYDRATION, ACUTE ON CHRONIC RENAL FAILURE, SEPSIS, UTI, AND A DIABETIC ULCER OF THE RIGHT HEEL. TODAY, SHE IS ALERT AND ORIENTED, LYING IN BED ON MORNING ROUNDS. SHE CONTINUES WITH COMPLAINTS OF WEAKNESS TODAY. ON EXAMINATION, HEART IS REGULAR IN RATE AND RHYT HM. BILATERAL LUNGS ARE NOTED WITH DIMINISHED LUNG SOUNDS THROUGHOUT. ABDOMEN IS ROUND, SOFT, AND NON-TENDER WITH NORMAL BOWEL SOUNDS NOTED IN ALL QUADRANTS. THERE IS A STAGE 2 DIABETIC ULCER NOTED TO THE RIGHT HEEL. NO DRAINAGE IS NOTED AT THAT TIME. HER VITALS THIS MORNING ARE: 100.5-94-18-93%-127/60. LABS WERE OBTAINED. ABNORMAL LAB VALUES INCLUDE THE FOLLOWING: rbc 2.49, hgb 7.8, hct 23.2, plt count 76, carbon dioxide 18.2, bun 38, creatinine 2.26, glucose 218, calcium 7.6, total protein 5.3, albumin 2.2. BLOOD, URINE, AND WOUND CULTURE ARE PENDING. SHE IS CURRENTLY RECEIVING D51/2NS AT 80 ML/HR, CIPRO 400MG IV DAILY, VANCOMYCIN 1G IV DAILY, DIFLUCAN 100MG IV DAILY, HUMULIN R SLIDING SCALE, AND HER HOME MEDICATIONS WERE RESUMED. WE WILL CONTINUE WITH CURRENT PLAN OF CARE AND WOUND CARE TODAY. OTHERWISE, WE WILL FOLLOW UP WITH AM LABS AND CONTINUE TO MONITOR. - Past Medical Family Social History Past Med/Fam/Surg Hx: No changes since H&P Allergies: Allergies ezetimibe [From Zetia] Allergy (Verified 04/10/20 18:04) Influenza Virus Vaccines Allergy (Verified 04/10/20 18:04) Penicillins Allergy (Verified 04/10/20 18:04) pneumococcal vaccine Allergy (Verified 04/10/20 18:04) ropinirole [From Requip] Allergy (Verified 04/10/20 18:04) - Review of Systems ROS: No change since H&P - Vital Signs and I&O's Vital Signs: Temperature 97.6 F Pulse Rate [Left Apical] 75 Pulse Rate 85 Respiratory Rate 18 Blood Pressure [Left Arm] 168/65 Blood Pressure [Right Arm] 130/56 Blood Pressure 104/51 O2 Sat by Pulse Oximetry 95 Intake and Output: Intake & Output 07/25/20 04/14/20 04/15/20 04/16/20 11:59 11:59 11:59 11:59 Intake Total 1040 / 1040 1240 / 1240 2129 / 0 1015 / 1015 Balance 1040 / 1040 1240 / 1240 2129 / 0 1015 / 1015 - Physical Exam Oriented: Normal Eyes: Normal Ear: Normal Nose: Normal Throat: Normal Respiratory: Diminished Cardiovascular: Normal : Normal Auscultation: Bowel Sounds: Normal Palpation: Normal Tenderness: Normal Skin: Red, Tender, Wound (STAGE TWO PRESSURE ULCER TO THE RIGHT HEEL ) Musculoskeletal: Normal Psychiatric: Normal Mood Description: Calm Affect: Normal Speech Pattern: Clear, Appropriate - Laboratory and Diagnostics Result Diagrams: 04/16/20 05:30 04/16/20 05:30 Labs: 04/10/20 18:45 Blood Blood Culture - Final 04/10/20 18:40 Blood Blood Culture - Final 04/10/20 16:09 Foot - Right Wound Culture - Final 04/11/20 04:25 Urine,Clean Catch Urine Culture - Final Laboratory WBC 8.2 X10^3/uL (3.6-10.0) 04/16/20 05:30 RBC 2.51 X10^6/uL (3.5-5.4) L 04/16/20 05:30 Hgb 7.7 g/dL (12.0-16.0) L 04/16/20 05:30 Hct 23.2 % (36.0-47.0) L 04/16/20 05:30 MCV 92.4 fL (80.0-100.0) 04/16/20 05:30 MCH 30.8 pg (27.0-34.0) 04/16/20 05:30 MCHC 33.3 g/dL (33.0-35.0) 04/16/20 05:30 RDW 16.3 % (11.6-16.5) 04/16/20 05:30 Plt Count 176 X10^3/uL (150.0-450.0) 04/16/20 05:30 Plt Count Comment Adequate (ADEQUATE) 04/16/20 05:30 MPV 7.7 fL (7.4-11.0) 04/16/20 05:30 Neut % (Auto) 76.0 % (42.0-75.0) H 04/16/20 05:30 Lymph % (Auto) 12.2 % (21.0-51.0) L 04/16/20 05:30 [place] % (Auto) 9.9 % (0.0-13.0) 04/16/20 05:30 Eos % (Auto) 1.7 % (0.9-2.9) 04/16/20 05:30 Baso % (Auto) 0.2 % (0.2-1.0) 04/16/20 05:30 Neut # (Auto) 6.2 x10^3/uL (2.2-4.8) H 04/16/20 05:30 Lymph # (Auto) 1.0 X10^3/uL (1.3-2.9) L 04/16/20 05:30 [place] # (Auto) 0.8 x10^3/uL (0.3-0.8) 04/16/20 05:30 Eos # (Auto) 0.1 x10^3/uL (0.0-0.2) 04/16/20 05:30 Baso # (Auto) 0.0 X10^3/uL (0.0-0.1) 04/16/20 05:30 Absolute Nucleated RBC 0.0 /100WBC 04/16/20 05:30 Total Counted 100 04/16/20 05:30 Neutrophils % (Manual) 79 % (39-76) H 04/16/20 05:30 Band Neutrophils % 4 % (0-10) 04/16/20 05:30 Lymphocytes % (Manual) 12 % (13-43) L 04/16/20 05:30 Monocytes % (Manual) 3 % (4-9) L 04/16/20 05:30 Eosinophils % (Manual) 2 % (0-6) 04/16/20 05:30 Metamyelocytes % 2 04/13/20 08:45 Plt Morphology Comment Normal (NORMAL) 04/16/20 05:30 RBC Morphology Abnormal (NORMAL) A 04/16/20 05:30 Hypochromasia Slight A 04/16/20 05:30 Sodium 133 mmol/L (136-145) L 04/16/20 05:30 Corrected Sodium 136 mmol/L (136-145) 04/16/20 05:30 Potassium 4.0 mmol/L (3.5-5.1) 04/16/20 05:30 Chloride 104 mmol/L (98-107) 04/16/20 05:30 Carbon Dioxide 19.9 mmol/L (21-32) L 04/16/20 05:30 BUN 27 mg/dL (7-18) H 04/16/20 05:30 Creatinine 2.22 mg/dL (0.55-1.02) H 04/16/20 05:30 Est GFR (MDRD) Af Amer 27 (>60) L 04/16/20 05:30 Est GFR (MDRD) Non-Af 22 (>60) L 04/16/20 05:30 Glucose 227 mg/dL (65-99) H 04/16/20 05:30 POC Glucose (mg/dL) 206 mg/dL (65-99) H 04/16/20 05:30 Lactic Acid 0.9 mmol/L (0.4-2.0) 04/10/20 18:40 Calcium 7.0 mg/dL (8.5-10.1) L 04/16/20 05:30 Corrected Calcium 8.7 mg/dL (8.5-10.1) 04/16/20 05:30 Ferritin 1414 ng/mL (8-252) H 04/16/20 05:30 Total Bilirubin 0.30 mg/dL (0.2-1.0) 04/16/20 05:30 AST 20 Units/L (15-37) 04/16/20 05:30 ALT 15 Units/L (12-78) 04/16/20 05:30 Alkaline Phosphatase 67 Units/L (46-116) 04/16/20 05:30 C-Reactive Protein 102.60 mg/L (0-3.0) H 04/16/20 05:30 Total Protein 5.1 g/dL (6.4-8.2) L 04/16/20 05:30 Albumin 1.9 g/dL (3.4-5.0) L 04/16/20 05:30 Globulin 3.2 g/dL (2.5-4.5) 04/16/20 05:30 Albumin/Globulin Ratio 0.6 Ratio (1.1-2.1) L 04/16/20 05:30 Specimen Type Catherized urine 04/10/20 04:25 Urine Color Yellow (YELLOW) 04/10/20 04:25 Urine Appearance Cloudy (CLEAR) 04/10/20 04:25 Urine pH 6.0 (5.0 - 8.0) 04/10/20 04:25 Ur Specific [place] 1.015 (1.000-1.030) 04/10/20 04:25 Urine Protein 3+ (NEGATIVE) 04/10/20 04:25 Urine Glucose (UA) Negative (NEGATIVE) 04/10/20 04:25 Urine Ketones Negative (NEGATIVE) 04/10/20 04:25 Urine Occult Blood 4+ (NEGATIVE) 04/10/20 04:25 Urine Nitrite Negative (NEGATIVE) 04/10/20 04:25 Urine Bilirubin Negative (NEGATIVE) 04/10/20 04:25 Urine Urobilinogen Normal (NORMAL) 04/10/20 04:25 Ur Leukocyte Esterase 3+ (NEGATIVE) 04/10/20 04:25 Urine RBC Tntc /HPF (0-3) A 04/10/20 04:25 Urine WBC Tntc /HPF (0-5) A 04/10/20 04:25 Ur Squamous Epith Cells Rare /HPF (NEGATIVE) 04/10/20 04:25 Urine Bacteria 1+ /HPF (NEGATIVE) 04/10/20 04:25 Urine Yeast Moderate /HPF (NEGATIVE) 04/10/20 04:25 Ur Culture Indicated? Yes/culture set up 04/10/20 04:25 Vancomycin Trough 27.9 ug/mL (15-20) H* 04/15/20 08:15 - Plan (1) Sepsis Status: Acute Qualifiers: Sepsis type: methicillin resistant Staphylococcus aureus Severe sepsis acute organ dysfunction type: acute renal failure Acute renal failure type: unspecified Severe sepsis shock status: unspecified Plan: D51/2NS AT 80 ML/HR, CIPRO 400MG IV DAILY, VANCOMYCIN 1G IV DAILY, DIFLUCAN 100MG IV DAILY, HUMULIN R SLIDING SCALE, AND HER HOME MEDICATIONS WERE RESUMED. (2) UTI (urinary tract infection) Status: Acute Qualifiers: Urinary tract infection type: acute cystitis Hematuria presence: with hematuria Qualified Code(s): N30.01 - Acute cystitis with hematuria (3) Diabetic ulcer of heel Status: Acute Qualifiers: Diabetes mellitus type: type 2 Laterality: right Non-pressure ulcer stage: unspecified non-pressure ulcer stage Qualified Code(s): E11.621 - Type 2 diabetes mellitus with foot ulcer; L97.419 - Non-pressure chronic ulcer of right heel and midfoot with unspecified severity Plan: WOUND CARE, IV ANTIBIOTICS
[2020-04-16] MEDS: D5 1/2 NS 1000 ML 1,000 ML IV SCH (09:11)
[2020-04-16] MEDS: BENADRYL CAP/TAB 25 MG PO SCH (09:11)
[2020-04-16] MEDS: COREG TAB 3.125 MG PO SCH (09:11)
[2020-04-16] MEDS: CIPRO IV 400 MG PREMIX* 400 MG/200 ML IV.SOLN. IV SCH (09:11)
[2020-04-16] MEDS: FERROUS GLUCONATE PO SCH (09:12)
[2020-04-16] MEDS: PROTONIX TAB 40 MG PO SCH (09:13)
[2020-04-16] MEDS: NEURONTIN CAP 100 MG PO SCH (09:13)
[2020-04-16] MEDS: VITAMIN C PO SCH (09:14)
[2020-04-16] MEDS: SENOKOT PO SCH (09:14)
[2020-04-16] MEDS: TAB-A-VITE PO SCH (09:14)
[2020-04-16] MEDS: VITAMIN D3 125 mcg (5,000 UNITS) PO SCH (09:15)
[2020-04-16] MEDS: ZINC SULFATE PO SCH (09:15)
[2020-04-16] MEDS: PLAVIX PO SCH (09:25)
--- NOTE | 2020-04-16 10:21 | PCM.PROG ---
Progress Note - Progress Note for Day of Date of Exam: 04/14/20 - Subjective Subjective: IS BEING TREATED FOR DEHYDRATION, ACUTE ON CHRONIC RENAL FAILURE, SEPSIS, UTI, AND A DIABETIC ULCER OF THE RIGHT HEEL. TODAY, SHE IS ALERT AND ORIENTED, LYING IN BED ON MORNING ROUNDS. SHE CONTINUES WITH COMPLAINTS OF WEAKNESS TODAY, BUT REPORTS SLIGHT IMPROVEMENT. ON EXAMINATION, H EART IS REGULAR IN RATE AND RHYTHM. BILATERAL LUNGS ARE NOTED WITH DIMINISHED LUNG SOUNDS THROUGHOUT. ABDOMEN IS ROUND, SOFT, AND NON-TENDER WITH NORMAL BOWEL SOUNDS NOTED IN ALL QUADRANTS. THERE IS A STAGE 2 DIABETIC ULCER NOTED TO THE RIGHT HEEL. NO DRAINAGE IS NOTED AT THAT TIME. HER VITALS THIS MORNING ARE: 98.7-107-20-99%-128/77. LABS WERE OBTAINED. ABNORMAL LAB VALUES INCLUDE THE FOLLOWING: WBC 10.7, RBC 2.88, HGB 8.9, HCT 27.0, PLT COUNT 94, BUN 31, CREATININE 2.29, GLUCOSE 215, CALCIUM 7.5, TOTAL PROTEIN 5.8, ALBUMIN 2.3. BLOOD, URINE, AND WOUND CULTURE ARE PENDING. SHE IS CURRENTLY RECEIVING D51/2NS AT 80 ML/HR, CIPRO 400MG IV DAILY, VANCOMYCIN 1G IV DAILY, DIFLUCAN 100MG IV DAILY, HUMULIN R SLIDING SCALE, AND HER HOME MEDICATIONS WERE RESUMED. PHYSICAL THERAPY IS WORKING WITH PATIENT. WE WILL CONTINUE WITH CURRENT PLAN OF CARE AND WOUND CARE TODAY. OTHERWISE, WE WILL FOLLOW UP WITH AM LABS AND CONTINUE TO MONITOR. - Past Medical Family Social History Past Med/Fam/Surg Hx: No changes since H&P Allergies: Allergies ezetimibe [From Zetia] Allergy (Verified 04/10/20 18:04) Influenza Virus Vaccines Allergy (Verified 04/10/20 18:04) Penicillins Allergy (Verified 04/10/20 18:04) pneumococcal vaccine Allergy (Verified 04/10/20 18:04) ropinirole [From Requip] Allergy (Verified 04/10/20 18:04) - Review of Systems ROS: No change since H&P - Vital Signs and I&O's Vital Signs: Temperature 97.6 F Pulse Rate [Left Apical] 84 Pulse Rate 85 Respiratory Rate 20 Blood Pressure [Left Arm] 168/65 Blood Pressure [Right Arm] 135/63 Blood Pressure 104/51 O2 Sat by Pulse Oximetry 97 Intake and Output: Intake & Output 04/13/20 04/14/20 04/15/20 04/16/20 11:59 11:59 11:59 11:59 Intake Total 1040 / 1040 1240 / 1240 2130 / 2130 1015 / 1015 Balance 1040 / 1040 1240 / 1240 0 / 0 1015 / 1015 - Physical Exam Oriented: Normal Eyes: Normal Ear: Normal Nose: Normal Throat: Normal Respiratory: Diminished Cardiovascular: Normal : Normal Auscultation: Bowel Sounds: Normal Tenderness: Normal Skin: Red, Tender, Wound (STAGE TWO PRESSURE ULCER TO THE RIGHT HEEL ) Musculoskeletal: Normal Psychiatric: Normal Mood Description: Calm Affect: Normal Speech Pattern: Clear, Appropriate - Laboratory and Diagnostics Result Diagrams: 04/16/20 05:30 04/16/20 05:30 Labs: 04/10/20 18:45 Blood Blood Culture - Final 04/10/20 18:40 Blood Blood Culture - Final 04/10/20 16:09 Foot - Right Wound Culture - Final 04/11/20 04:25 Urine,Clean Catch Urine Culture - Final Laboratory WBC 8.2 X10^3/uL (3.6-10.0) 04/16/20 05:30 RBC 2.51 X10^6/uL (3.5-5.4) L 04/16/20 05:30 Hgb 7.7 g/dL (12.0-16.0) L 04/16/20 05:30 Hct 23.2 % (36.0-47.0) L 04/16/20 05:30 MCV 92.4 fL (80.0-100.0) 04/16/20 05:30 MCH 30.8 pg (27.0-34.0) 04/16/20 05:30 MCHC 33.3 g/dL (33.0-35.0) 04/16/20 05:30 RDW 16.3 % (11.6-16.5) 04/16/20 05:30 Plt Count 176 X10^3/uL (150.0-450.0) 04/16/20 05:30 Plt Count Comment Adequate (ADEQUATE) 04/16/20 05:30 MPV 7.7 fL (7.4-11.0) 04/16/20 05:30 Neut % (Auto) 76.0 % (42.0-75.0) H 04/16/20 05:30 Lymph % (Auto) 12.2 % (21.0-51.0) L 04/16/20 05:30 Whitman % (Auto) 9.9 % (0.0-13.0) 04/16/20 05:30 Eos % (Auto) 1.7 % (0.9-2.9) 04/16/20 05:30 Baso % (Auto) 0.2 % (0.2-1.0) 04/16/20 05:30 Neut # (Auto) 6.2 x10^3/uL (2.2-4.8) H 04/16/20 05:30 Lymph # (Auto) 1.0 X10^3/uL (1.3-2.9) L 04/16/20 05:30 Whitman # (Auto) 0.8 x10^3/uL (0.3-0.8) 04/16/20 05:30 Eos # (Auto) 0.1 x10^3/uL (0.0-0.2) 04/16/20 05:30 Baso # (Auto) 0.0 X10^3/uL (0.0-0.1) 04/16/20 05:30 Absolute Nucleated RBC 0.0 /100WBC 04/16/20 05:30 Total Counted 100 04/16/20 05:30 Neutrophils % (Manual) 79 % (39-76) H 04/16/20 05:30 Band Neutrophils % 4 % (0-10) 04/16/20 05:30 Lymphocytes % (Manual) 12 % (13-43) L 04/16/20 05:30 Monocytes % (Manual) 3 % (4-9) L 04/16/20 05:30 Eosinophils % (Manual) 2 % (0-6) 04/16/20 05:30 Metamyelocytes % 2 04/13/20 08:45 Plt Morphology Comment Normal (NORMAL) 04/16/20 05:30 RBC Morphology Abnormal (NORMAL) A 04/16/20 05:30 Hypochromasia Slight A 04/16/20 05:30 Sodium 133 mmol/L (136-145) L 04/16/20 05:30 Corrected Sodium 136 mmol/L (136-145) 04/16/20 05:30 Potassium 4.0 mmol/L (3.5-5.1) 04/16/20 05:30 Chloride 104 mmol/L (98-107) 04/16/20 05:30 Carbon Dioxide 19.9 mmol/L (21-32) L 04/16/20 05:30 BUN 27 mg/dL (7-18) H 04/16/20 05:30 Creatinine 2.22 mg/dL (0.55-1.02) H 04/16/20 05:30 Est GFR (MDRD) Af Amer 27 (>60) L 04/16/20 05:30 Est GFR (MDRD) Non-Af 22 (>60) L 04/16/20 05:30 Glucose 227 mg/dL (65-99) H 04/16/20 05:30 POC Glucose (mg/dL) 206 mg/dL (65-99) H 04/16/20 05:30 Lactic Acid 0.9 mmol/L (0.4-2.0) 04/10/20 18:40 Calcium 7.0 mg/dL (8.5-10.1) L 04/16/20 05:30 Corrected Calcium 8.7 mg/dL (8.5-10.1) 04/16/20 05:30 Ferritin 1414 ng/mL (8-252) H 04/16/20 05:30 Total Bilirubin 0.30 mg/dL (0.2-1.0) 04/16/20 05:30 AST 20 Units/L (15-37) 04/16/20 05:30 ALT 15 Units/L (12-78) 04/16/20 05:30 Alkaline Phosphatase 67 Units/L (46-116) 04/16/20 05:30 C-Reactive Protein 102.60 mg/L (0-3.0) H 04/16/20 05:30 Total Protein 5.1 g/dL (6.4-8.2) L 04/16/20 05:30 Albumin 1.9 g/dL (3.4-5.0) L 04/16/20 05:30 Globulin 3.2 g/dL (2.5-4.5) 04/16/20 05:30 Albumin/Globulin Ratio 0.6 Ratio (1.1-2.1) L 04/16/20 05:30 Specimen Type Catherized urine 04/10/20 04:25 Urine Color Yellow (YELLOW) 04/10/20 04:25 Urine Appearance Cloudy (CLEAR) 04/10/20 04:25 Urine pH 6.0 (5.0 - 8.0) 04/10/20 04:25 Ur Specific Foster 1.015 (1.000-1.030) 04/10/20 04:25 Urine Protein 3+ (NEGATIVE) 04/10/20 04:25 Urine Glucose (UA) Negative (NEGATIVE) 04/10/20 04:25 Urine Ketones Negative (NEGATIVE) 04/10/20 04:25 Urine Occult Blood 4+ (NEGATIVE) 04/10/20 04:25 Urine Nitrite Negative (NEGATIVE) 04/10/20 04:25 Urine Bilirubin Negative (NEGATIVE) 04/10/20 04:25 Urine Urobilinogen Normal (NORMAL) 04/10/20 04:25 Ur Leukocyte Esterase 3+ (NEGATIVE) 04/10/20 04:25 Urine RBC Tntc /HPF (0-3) A 04/10/20 04:25 Urine WBC Tntc /HPF (0-5) A 04/10/20 04:25 Ur Squamous Epith Cells Rare /HPF (NEGATIVE) 04/10/20 04:25 Urine Bacteria 1+ /HPF (NEGATIVE) 04/10/20 04:25 Urine Yeast Moderate /HPF (NEGATIVE) 04/10/20 04:25 Ur Culture Indicated? Yes/culture set up 04/10/20 04:25 Vancomycin Trough 27.9 ug/mL (15-20) H* 04/15/20 08:15 - Plan (1) Sepsis Status: Acute Qualifiers: Sepsis type: methicillin resistant Staphylococcus aureus Severe sepsis acute organ dysfunction type: acute renal failure Acute renal failure type: unspecified Severe sepsis shock status: unspecified Plan: D51/2NS AT 80 ML/HR, CIPRO 400MG IV DAILY, VANCOMYCIN 1G IV DAILY, DIFLUCAN 100MG IV DAILY, HUMULIN R SLIDING SCALE, AND HER HOME MEDICATIONS WERE RESUMED. (2) UTI (urinary tract infection) Status: Acute Qualifiers: Urinary tract infection type: acute cystitis Hematuria presence: with hematuria Qualified Code(s): N30.01 - Acute cystitis with hematuria (3) Diabetic ulcer of heel Status: Acute Qualifiers: Diabetes mellitus type: type 2 Laterality: right Non-pressure ulcer stage: unspecified non-pressure ulcer stage Qualified Code(s): E11.621 - Type 2 diabetes mellitus with foot ulcer; L97.419 - Non-pressure chronic ulcer of right heel and midfoot with unspecified severity Plan: WOUND CARE, IV ANTIBIOTICS
--- NOTE | 2020-04-16 10:30 | PCM.PROG ---
Progress Note - Progress Note for Day of Date of Exam: 04/15/20 - Subjective Subjective: IS BEING TREATED FOR DEHYDRATION, ACUTE ON CHRONIC RENAL FAILURE, SEPSIS, UTI, AND A DIABETIC ULCER OF THE RIGHT HEEL. TODAY, SHE IS ALERT AND ORIENTED, LYING IN BED ON MORNING ROUNDS. SHE REPORTS FEELING MORE WEAK TODAY. SHE HAS BEEN FEBRILE THROUGHOUT THE MORNING AND AFTERNOON. ON EXAMINATION, HEART IS REGULAR IN RATE AND RHYTHM. BILATERAL LUNGS ARE NOTED WITH DIMINISHED LUNG SOUNDS THROUGHOUT. ABDOMEN IS ROUND, SOFT, AND NON-TENDER WITH NORMAL BOWEL SOUNDS NOTED IN ALL QUADRANTS. THERE IS A STAGE 2 DIABETIC ULCER NOTED TO THE RIGHT HEEL. NO DRAINAGE IS NOTED AT THAT TIME. HER VITALS ARE: 102.1-98-20-94%RA-159/73. LABS WERE OBTAINED. ABNORMAL LAB VALUES INCLUDE THE FOLLOWING: WBC 10.9, RBC 2.82, HGB 8.6, HCT 26.1, SODIUM 134, BUN 25, CREATININE 2.02, GLUCOSE 186, CALCIUM 7.7, TOTAL PROTEIN 5.9, ALBUMIN 2.3. BLOOD, URINE, AND WOUND CULTURE ARE PENDING. SHE IS CURRENTLY RECEIVING D51/2NS AT 80 ML/HR, CIPRO 400MG IV DAILY, VANCOMYCIN 1G IV DAILY, DIFLUCAN 100MG IV DAILY, HUMULIN R SLIDING SCALE, AND HER HOME MEDICATIONS WERE RESUMED. PHYSICAL THERAPY IS WORKING WITH PATIENT. WE WILL CHECK A CHEST XRAY AND RECULTURE TODAY. OTHERWISE,WE WILL CONTINUE WITH CURRENT PLAN OF CARE AND WOUND CARE. WE WILL FOLLOW UP WITH AM LABS AND CONTINUE TO MONITOR. - Past Medical Family Social History Past Med/Fam/Surg Hx: No changes since H&P Allergies: Allergies ezetimibe [From Zetia] Allergy (Verified 04/10/20 18:04) Influenza Virus Vaccines Allergy (Verified 04/10/20 18:04) Penicillins Allergy (Verified 04/10/20 18:04) pneumococcal vaccine Allergy (Verified 04/10/20 18:04) ropinirole [From Requip] Allergy (Verified 04/10/20 18:04) - Review of Systems ROS: No change since H&P - Vital Signs and I&O's Vital Signs: Temperature 97.6 F Pulse Rate [Left Apical] 84 Pulse Rate 85 Respiratory Rate 20 Blood Pressure [Left Arm] 168/65 Blood Pressure [Right Arm] 135/63 Blood Pressure 104/51 O2 Sat by Pulse Oximetry 97 Intake and Output: Intake & Output 04/13/20 04/14/20 04/15/20 04/16/20 11:59 11:59 11:59 11:59 Intake Total 1040 / 1040 1240 / 1240 2130 / 2130 1015 / 1015 Balance 1040 / 1040 1240 / 1240 2130 / 2130 1015 / 1015 - Physical Exam Oriented: Normal Eyes: Normal Ear: Normal Nose: Normal Throat: Normal Respiratory: Diminished Cardiovascular: Normal : Normal Auscultation: Bowel Sounds: Normal Palpation: Normal Tenderness: Normal Skin: Red, Tender, Wound (STAGE TWO PRESSURE ULCER TO THE RIGHT HEEL ) Musculoskeletal: Normal Psychiatric: Normal Mood Description: Calm Affect: Normal Speech Pattern: Clear, Appropriate - Laboratory and Diagnostics Result Diagrams: 04/16/20 05:30 04/16/20 05:30 Labs: 04/10/20 18:45 Blood Blood Culture - Final 04/10/20 18:40 Blood Blood Culture - Final 04/10/20 16:09 Foot - Right Wound Culture - Final 04/11/20 04:25 Urine,Clean Catch Urine Culture - Final Laboratory WBC 8.2 X10^3/uL (3.6-10.0) 04/16/20 05:30 RBC 2.51 X10^6/uL (3.5-5.4) L 04/16/20 05:30 Hgb 7.7 g/dL (12.0-16.0) L 04/16/20 05:30 Hct 23.2 % (36.0-47.0) L 04/16/20 05:30 MCV 92.4 fL (80.0-100.0) 04/16/20 05:30 MCH 30.8 pg (27.0-34.0) 04/16/20 05:30 MCHC 33.3 g/dL (33.0-35.0) 04/16/20 05:30 RDW 16.3 % (11.6-16.5) 04/16/20 05:30 Plt Count 176 X10^3/uL (150.0-450.0) 04/16/20 05:30 Plt Count Comment Adequate (ADEQUATE) 04/16/20 05:30 MPV 7.7 fL (7.4-11.0) 04/16/20 05:30 Neut % (Auto) 76.0 % (42.0-75.0) H 04/16/20 05:30 Lymph % (Auto) 12.2 % (21.0-51.0) L 04/16/20 05:30 Ness % (Auto) 9.9 % (0.0-13.0) 04/16/20 05:30 Eos % (Auto) 1.7 % (0.9-2.9) 04/16/20 05:30 Baso % (Auto) 0.2 % (0.2-1.0) 04/16/20 05:30 Neut # (Auto) 6.2 x10^3/uL (2.2-4.8) H 04/16/20 05:30 Lymph # (Auto) 1.0 X10^3/uL (1.3-2.9) L 04/16/20 05:30 Ness # (Auto) 0.8 x10^3/uL (0.3-0.8) 04/16/20 05:30 Eos # (Auto) 0.1 x10^3/uL (0.0-0.2) 04/16/20 05:30 Baso # (Auto) 0.0 X10^3/uL (0.0-0.1) 04/16/20 05:30 Absolute Nucleated RBC 0.0 /100WBC 04/16/20 05:30 Total Counted 100 04/16/20 05:30 Neutrophils % (Manual) 79 % (39-76) H 04/16/20 05:30 Band Neutrophils % 4 % (0-10) 04/16/20 05:30 Lymphocytes % (Manual) 12 % (13-43) L 04/16/20 05:30 Monocytes % (Manual) 3 % (4-9) L 04/16/20 05:30 Eosinophils % (Manual) 2 % (0-6) 04/16/20 05:30 Metamyelocytes % 2 04/13/20 08:45 Plt Morphology Comment Normal (NORMAL) 04/16/20 05:30 RBC Morphology Abnormal (NORMAL) A 04/16/20 05:30 Hypochromasia Slight A 04/16/20 05:30 Sodium 133 mmol/L (136-145) L 04/16/20 05:30 Corrected Sodium 136 mmol/L (136-145) 04/16/20 05:30 Potassium 4.0 mmol/L (3.5-5.1) 04/16/20 05:30 Chloride 104 mmol/L (98-107) 04/16/20 05:30 Carbon Dioxide 19.9 mmol/L (21-32) L 04/16/20 05:30 BUN 27 mg/dL (7-18) H 04/16/20 05:30 Creatinine 2.22 mg/dL (0.55-1.02) H 04/16/20 05:30 Est GFR (MDRD) Af Amer 27 (>60) L 04/16/20 05:30 Est GFR (MDRD) Non-Af 22 (>60) L 04/16/20 05:30 Glucose 227 mg/dL (65-99) H 04/16/20 05:30 POC Glucose (mg/dL) 206 mg/dL (65-99) H 04/16/20 05:30 Lactic Acid 0.9 mmol/L (0.4-2.0) 04/10/20 18:40 Calcium 7.0 mg/dL (8.5-10.1) L 04/16/20 05:30 Corrected Calcium 8.7 mg/dL (8.5-10.1) 04/16/20 05:30 Ferritin 1414 ng/mL (8-252) H 04/16/20 05:30 Total Bilirubin 0.30 mg/dL (0.2-1.0) 04/16/20 05:30 AST 20 Units/L (15-37) 04/16/20 05:30 ALT 15 Units/L (12-78) 04/16/20 05:30 Alkaline Phosphatase 67 Units/L (46-116) 04/16/20 05:30 C-Reactive Protein 102.60 mg/L (0-3.0) H 04/16/20 05:30 Total Protein 5.1 g/dL (6.4-8.2) L 04/16/20 05:30 Albumin 1.9 g/dL (3.4-5.0) L 04/16/20 05:30 Globulin 3.2 g/dL (2.5-4.5) 04/16/20 05:30 Albumin/Globulin Ratio 0.6 Ratio (1.1-2.1) L 04/16/20 05:30 Specimen Type Catherized urine 04/10/20 04:25 Urine Color Yellow (YELLOW) 04/10/20 04:25 Urine Appearance Cloudy (CLEAR) 04/10/20 04:25 Urine pH 6.0 (5.0 - 8.0) 04/10/20 04:25 Ur Specific [place] 1.015 (1.000-1.030) 04/10/20 04:25 Urine Protein 3+ (NEGATIVE) 04/10/20 04:25 Urine Glucose (UA) Negative (NEGATIVE) 04/10/20 04:25 Urine Ketones Negative (NEGATIVE) 04/10/20 04:25 Urine Occult Blood 4+ (NEGATIVE) 04/10/20 04:25 Urine Nitrite Negative (NEGATIVE) 04/10/20 04:25 Urine Bilirubin Negative (NEGATIVE) 04/10/20 04:25 Urine Urobilinogen Normal (NORMAL) 04/10/20 04:25 Ur Leukocyte Esterase 3+ (NEGATIVE) 04/10/20 04:25 Urine RBC Tntc /HPF (0-3) A 04/10/20 04:25 Urine WBC Tntc /HPF (0-5) A 04/10/20 04:25 Ur Squamous Epith Cells Rare /HPF (NEGATIVE) 04/10/20 04:25 Urine Bacteria 1+ /HPF (NEGATIVE) 04/10/20 04:25 Urine Yeast Moderate /HPF (NEGATIVE) 04/10/20 04:25 Ur Culture Indicated? Yes/culture set up 04/10/20 04:25 Vancomycin Trough 27.9 ug/mL (15-20) H* 04/15/20 08:15 - Plan (1) Sepsis Status: Acute Qualifiers: Sepsis type: methicillin resistant Staphylococcus aureus Severe sepsis acute organ dysfunction type: acute renal failure Acute renal failure type: unspecified Severe sepsis shock status: unspecified Plan: D51/2NS AT 80 ML/HR, CIPRO 400MG IV DAILY, VANCOMYCIN 1G IV DAILY, DIFLUCAN 100MG IV DAILY, HUMULIN R SLIDING SCALE, AND HER HOME MEDICATIONS WERE RESUMED. (2) UTI (urinary tract infection) Status: Acute Qualifiers: Urinary tract infection type: acute cystitis Hematuria presence: with hematuria Qualified Code(s): N30.01 - Acute cystitis with hematuria (3) Diabetic ulcer of heel Status: Acute Qualifiers: Diabetes mellitus type: type 2 Laterality: right Non-pressure ulcer stage: unspecified non-pressure ulcer stage Qualified Code(s): E11.621 - Type 2 diabetes mellitus with foot ulcer; L97.419 - Non-pressure chronic ulcer of right heel and midfoot with unspecified severity Plan: WOUND CARE, IV ANTIBIOTICS
[2020-04-16] MEDS ORDERED: FORTAZ or TAZICEF VIAL INJ 2 G in NS 100 ML IV + SPIKE MINIBAG* 100 ML IV SCH (11:00)
[2020-04-16] MEDS: DIFLUCAN 100 MG IV (MIX by PHARMACY)* 100 MG/50 ML BAG IV SCH (11:24)
[2020-04-16] MEDS: HumuLIN R SUBCUT PRN (11:56)
[2020-04-16 14:22] VITALS: BP 159/64
== END 2020-04-16 13:05 | DRG 871 ==
LOC: MED/SURG 16:00
PROVIDERS: ADMIT Internal Medicine; ATTEND Internal Medicine
DX: E86.0 Dehydration; I25.10 Atherosclerotic heart disease of native coronary artery without angina pectoris; N17.9 Acute kidney failure, unspecified; N18.9 Chronic kidney disease, unspecified; R26.81 Unsteadiness on feet; N30.01 Acute cystitis with hematuria; R65.20 Severe sepsis without septic shock; E11.622 Type 2 diabetes mellitus with other skin ulcer; I12.9 Hypertensive chronic kidney disease with stage 1 through stage 4 chronic kidney disease, or unspecified chronic kidney disease; E11.22 Type 2 diabetes mellitus with diabetic chronic kidney disease; U07.1 COVID-19; L89.612 Pressure ulcer of right heel, stage 2; Z87.440 Personal history of urinary (tract) infections; A41.02 Sepsis due to Methicillin resistant Staphylococcus aureus
CPT/HCPCS: 36415; 71010; 71045; 80053; 80202; 81001; 82565; 82728; 83605; 85025; 86140; 87040; 87070; 87075; 87086; 87205; 93306; 94640; 97110; 97163; 97167; 97530; 97535; A4216; A4222; J0713; J0744; J1450; J1815; J3370; J7050; J7060; J7613; S5010

== ENCOUNTER 2020-04-18 16:00 | Inpatient (IN) ==
--- NOTE | 2020-04-18 16:37 | DR.AMS ---
HPI Time Seen Time Seen by Provider: 04/18/20 16:24 PMH PMH Past Medical History: Anemia, Arthritis, CHF, Coronary Artery Disease, Depression, Diabetes, GERD, Hypertension and Renal Disease Past Surgical History: Yes Surgical History: Angioplasty/Stents, Hysterectomy, Ortho Surgery and Other Family History Family Medical History: Coronary Artery Disease and Hypertension Social History Do you use any recreational Drugs:: No PE Vitals Vital Signs: Temp Pulse Resp BP BP BP Pulse Ox 04/18/20 19:28 96.9 F L 04/18/20 19:00 69 19 100 04/18/20 18:21 65 12 103/62 100 04/18/20 18:15 63 12 100 04/18/20 18:01 62 11 L 107/56 100 04/18/20 18:00 62 11 L 100 04/18/20 17:50 94.9 F L 04/18/20 17:45 60 10 L 04/18/20 17:40 60 11 L 103/51 04/18/20 17:30 59 L 10 L 04/18/20 17:21 60 10 L 101/50 04/18/20 17:15 59 L 11 L 04/18/20 17:01 61 13 109/54 100 04/18/20 17:00 60 13 100 04/18/20 16:54 60 11 L 99/51 100 04/18/20 16:45 60 10 L 100 04/18/20 16:41 61 10 L 111/55 100 04/18/20 16:38 61 11 L 100 04/18/20 16:37 94.5 F L 61 10 L 122/51 100 04/16/20 12:00 159/64 04/14/20 20:00 168/65 ROR Labs Reviewed Result Diagrams: 04/18/20 18:05 04/18/20 17:10 Laboratory: WBC 9.3 X10^3/uL (3.6-10.0) 04/18/20 18:05 RBC 2.63 X10^6/uL (3.5-5.4) L 04/18/20 18:05 Hgb 8.0 g/dL (12.0-16.0) L 04/18/20 18:05 Hct 24.1 % (36.0-47.0) L 04/18/20 18:05 MCV 91.4 fL (80.0-100.0) 04/18/20 18:05 MCH 30.3 pg (27.0-34.0) 04/18/20 18:05 MCHC 33.1 g/dL (33.0-35.0) 04/18/20 18:05 RDW 17.0 % (11.6-16.5) H 04/18/20 18:05 Plt Count 293 X10^3/uL (150.0-450.0) 04/18/20 18:05 MPV 7.5 fL (7.4-11.0) 04/18/20 18:05 Neut % (Auto) 76.9 % (42.0-75.0) H 04/18/20 18:05 Lymph % (Auto) 10.4 % (21.0-51.0) L 04/18/20 18:05 [place]royo % (Auto) 7.8 % (0.0-13.0) 04/18/20 18:05 Eos % (Auto) 4.5 % (0.9-2.9) H 04/18/20 18:05 Baso % (Auto) 0.4 % (0.2-1.0) 04/18/20 18:05 Neut # (Auto) 7.2 x10^3/uL (2.2-4.8) H 04/18/20 18:05 Lymph # (Auto) 1.0 X10^3/uL (1.3-2.9) L 04/18/20 18:05 [place]o # (Auto) 0.7 x10^3/uL (0.3-0.8) 04/18/20 18:05 Eos # (Auto) 0.4 x10^3/uL (0.0-0.2) H 04/18/20 18:05 Baso # (Auto) 0.0 X10^3/uL (0.0-0.1) 04/18/20 18:05 Absolute Nucleated RBC 0.1 /100WBC 04/18/20 18:05 Sodium 138 mmol/L (136-145) 04/18/20 17:10 Corrected Sodium TNP 04/18/20 17:10 Potassium 4.4 mmol/L (3.5-5.1) 04/18/20 17:10 Chloride 106 mmol/L (98-107) 04/18/20 17:10 Carbon Dioxide 18.2 mmol/L (21-32) L 04/18/20 17:10 BUN 39 mg/dL (7-18) H 04/18/20 17:10 Creatinine 3.00 mg/dL (0.55-1.02) H 04/18/20 17:10 Est GFR (MDRD) Af Amer 19 (>60) L 04/18/20 17:10 Est GFR (MDRD) Non-Af 16 (>60) L 04/18/20 17:10 Glucose 83 mg/dL (65-99) 04/18/20 17:10 Lactic Acid 1.1 mmol/L (0.4-2.0) 04/18/20 18:05 Calcium 7.6 mg/dL (8.5-10.1) L 04/18/20 17:10 Corrected Calcium 9.0 mg/dL (8.5-10.1) 04/18/20 17:10 Ferritin 1698 ng/mL (8-252) H 04/18/20 17:10 Total Bilirubin 0.20 mg/dL (0.2-1.0) 04/18/20 17:10 AST 23 Units/L (15-37) 04/18/20 17:10 ALT 52 Units/L (12-78) 04/18/20 17:10 Alkaline Phosphatase 80 Units/L (46-116) 04/18/20 17:10 Lactate Dehydrogenase 564 Units/L (81-234) H 04/18/20 18:05 Creatine Kinase 84 Units/L (26-192) 04/18/20 18:05 CK-MB (CK-2) 1.2 ng/mL (0-4.0) 04/18/20 18:05 CK/CKMB % Calc 1.4 % (<4) 04/18/20 18:05 Troponin I 0.02 ng/mL (0-1.5) 04/18/20 18:05 C-Reactive Protein 80.90 mg/L (0-3.0) H 04/18/20 18:05 Total Protein 5.4 g/dL (6.4-8.2) L 04/18/20 17:10 Albumin 2.3 g/dL (3.4-5.0) L 04/18/20 17:10 Globulin 3.1 g/dL (2.5-4.5) 04/18/20 17:10 Albumin/Globulin Ratio 0.7 Ratio (1.1-2.1) L 04/18/20 17:10 Specimen Type Catherized urine 04/18/20 16:35 Urine Color Yellow (YELLOW) 04/18/20 16:35 Urine Appearance Cloudy (CLEAR) 04/18/20 16:35 Urine pH 6.0 (5.0 - 8.0) 04/18/20 16:35 Ur Specific [place] 1.020 (1.000-1.030) 04/18/20 16:35 Urine Protein 3+ (NEGATIVE) 04/18/20 16:35 Urine Glucose (UA) Negative (NEGATIVE) 04/18/20 16:35 Urine Ketones Negative (NEGATIVE) 04/18/20 16:35 Urine Occult Blood 4+ (NEGATIVE) 04/18/20 16:35 Urine Nitrite Negative (NEGATIVE) 04/18/20 16:35 Urine Bilirubin Negative (NEGATIVE) 04/18/20 16:35 Urine Urobilinogen Normal (NORMAL) 04/18/20 16:35 Ur Leukocyte Esterase 3+ (NEGATIVE) 04/18/20 16:35 Urine RBC 5-10 /HPF (0-3) A 04/18/20 16:35 Urine WBC Tntc /HPF (0-5) A 04/18/20 16:35 Ur Squamous Epith Cells Rare /HPF (NEGATIVE) 04/18/20 16:35 Urine Bacteria Trace /HPF (NEGATIVE) 04/18/20 16:35 Ur Culture Indicated? Yes/culture set up 04/18/20 16:35 Opioid Opioid Risk Tool Age (Juno box if 16-45): No History of Preadolescent Sexual Abuse: No Total: 0 Total Score Risk Category: Low Risk Copyright: Kishore BRIONES predicting aberrant behaviors Instructions Forms: Excuse From Work Precautions for COVID19 Patient Portal Social Distancing
[2020-04-18 17:01] LABS: BILIRUBIN,URINE NEGATIVE (NEGATIVE); BLOOD/HEMOGLOBIN,URINE 4+ (NEGATIVE); GLUCOSE, URINE NEGATIVE (NEGATIVE); KETONES,URINE NEGATIVE (NEGATIVE); LEUKOCYTE ESTERASE ,URINE 3+ (NEGATIVE); NITRITES,URINE NEGATIVE (NEGATIVE); PROTEIN,URINE 3+ (NEGATIVE); UROBILINOGEN,URINE NORMAL (NORMAL)
[2020-04-18 17:13] LABS: APPEARANCE,URINE CLOUDY (CLEAR); COLOR,URINE YELLOW (YELLOW)
[2020-04-18 17:14] LABS: BACTERIA,URINE TRACE /HPF (NEGATIVE); SQUAMOUS EPITHELIAL CELL,UR RARE /HPF (NEGATIVE)
--- NOTE | 2020-04-18 17:43 | RAD ---
CHEST, 1 VIEWHISTORY: LethargyStudy: Single view of the chest.Comparison:NoneFindings:The cardiomediastinal silhouette is normal. Bilateral interstitial prominence, possible early alveolar infiltrates. No focal consolidations, pleural effusions or pneumothorax. Osseous structures demonstrate no acute abnormality. No change in the positioning of the left central catheter which has been commented on prior.IMPRESSION:1. Bilateral interstitial prominence and early alveolar infiltrates. Findings may represent atypical infection, including viral etiologies.Electronically signed by: WILBER MAIN (Apr 18, 2020 17:42:21)
[2020-04-18 18:38] LABS: BASOPHILS % (AUTO) 0.4 % (0.2-1.0); EOSINOPHILS # (AUTO) 0.4 x10^3/uL (0.0-0.2); EOSINOPHILS % (AUTO) 4.5 % (0.9-2.9); HEMATOCRIT 24.1 % (36.0-47.0); LYMPHOCYTES % (AUTO) 10.4 % (21.0-51.0); MEAN CORPUSCULAR HEMOGLOBIN 30.3 pg (27.0-34.0); MEAN CORPUSCULAR HGB CONC 33.1 g/dL (33.0-35.0); MEAN CORPUSCULAR VOLUME 91.4 fL (80.0-100.0); MEAN PLATELET VOLUME 7.5 fL (7.4-11.0); MONOCYTES # (AUTO) 0.7 x10^3/uL (0.3-0.8); MONOCYTES % (AUTO) 7.8 % (0.0-13.0); NEUTROPHILS # (AUTO) 7.2 x10^3/uL (2.2-4.8); NEUTROPHILS % (AUTO) 76.9 % (42.0-75.0); PLATELET COUNT 293 X10^3/uL (150.0-450.0); RED BLOOD COUNT 2.63 X10^6/uL (3.5-5.4); WHITE BLOOD COUNT 9.3 X10^3/uL (3.6-10.0)
[2020-04-18 19:02] LABS: LACTIC ACID 1.1 mmol/L (0.4-2.0)
[2020-04-18 19:05] LABS: CKMB % 1.4 % (<4); CREATINE KINASE MB 1.2 ng/mL (0-4.0); TROPONIN I 0.02 ng/mL (0-1.5)
[2020-04-18 19:19] LABS: ALANINE AMINOTRANSFERASE 52 Units/L (12-78); ALBUMIN 2.3 g/dL (3.4-5.0); ALKALINE PHOSPHATASE 80 Units/L (46-116); ASPARTATE AMINO TRANSFERASE 23 Units/L (15-37); BLOOD UREA NITROGEN 39 mg/dL (7-18); CALCIUM 7.6 mg/dL (8.5-10.1); CARBON DIOXIDE 18.2 mmol/L (21-32); CHLORIDE 106 mmol/L (98-107); SODIUM 138 mmol/L (136-145); TOTAL PROTEIN 5.4 g/dL (6.4-8.2); eGFR NON BLACK RACES 16 (>60)
[2020-04-18] MEDS ORDERED: NS 1000 ML 1,000 ML ONE (19:33)
[2020-04-18] MEDS ORDERED: NS 1000 ML 1,000 ML IV SCH (20:00)
[2020-04-18] MEDS ORDERED: ROCEPHIN 1 GRAM IV PREMIX 1 G/50 ML IV.SOLN. IV ONE (21:51)
[2020-04-18] MEDS: ROCEPHIN VIAL 1 GRAM 1 G in NS 100 ML IV + SPIKE MINIBAG* 100 ML IV SCH ×2 (21:56→22:26)
[2020-04-18] MEDS ORDERED: PHARMACY CONSULT LTC MEDICATIONS XX SCH (23:45)
[2020-04-19] MEDS ORDERED: D5 1/2 NS 1000 ML 1,000 ML IV ONE (00:50)
[2020-04-19] MEDS ORDERED: D5 1/2 NS 1000 ML 1,000 ML IV SCH (01:00)
[2020-04-19 02:42] LABS: BASOPHILS % (AUTO) 0.3 % (0.2-1.0); EOSINOPHILS # (AUTO) 0.3 x10^3/uL (0.0-0.2); EOSINOPHILS % (AUTO) 2.7 % (0.9-2.9); HEMATOCRIT 22.2 % (36.0-47.0); HEMOGLOBIN 7.4 g/dL (12.0-16.0); LYMPHOCYTES # (AUTO) 0.6 X10^3/uL (1.3-2.9); LYMPHOCYTES % (AUTO) 6.2 % (21.0-51.0); MEAN CORPUSCULAR HEMOGLOBIN 30.3 pg (27.0-34.0); MEAN CORPUSCULAR HGB CONC 33.2 g/dL (33.0-35.0); MEAN CORPUSCULAR VOLUME 91.3 fL (80.0-100.0); MEAN PLATELET VOLUME 7.3 fL (7.4-11.0); MONOCYTES # (AUTO) 0.8 x10^3/uL (0.3-0.8); MONOCYTES % (AUTO) 8.5 % (0.0-13.0); NEUTROPHILS # (AUTO) 8.1 x10^3/uL (2.2-4.8); NEUTROPHILS % (AUTO) 82.3 % (42.0-75.0); PLATELET COUNT 312 X10^3/uL (150.0-450.0); RED BLOOD COUNT 2.43 X10^6/uL (3.5-5.4); RED CELL DISTRIBUTION WIDTH 16.5 % (11.6-16.5); WHITE BLOOD COUNT 9.9 X10^3/uL (3.6-10.0)
[2020-04-19 02:50] LABS: ALANINE AMINOTRANSFERASE 15 Units/L (12-78); ALBUMIN 2.1 g/dL (3.4-5.0); ALKALINE PHOSPHATASE 78 Units/L (46-116); ASPARTATE AMINO TRANSFERASE 23 Units/L (15-37); BLOOD UREA NITROGEN 40 mg/dL (7-18); CALCIUM 7.6 mg/dL (8.5-10.1); CARBON DIOXIDE 19.4 mmol/L (21-32); CHLORIDE 106 mmol/L (98-107); COR CA(FOR HYPOALB) 9.1 mg/dL (8.5-10.1); CREATININE 3.37 mg/dL (0.55-1.02); MAGNESIUM 1.3 mg/dL (1.7-2.9); SODIUM 137 mmol/L (136-145); TOTAL PROTEIN 5.6 g/dL (6.4-8.2); eGFR NON BLACK RACES 14 (>60)
[2020-04-19 02:54] LABS: HYPOCHROMASIA SLIGHT; PLATELET MORPHOLOGY COMMENT NORMAL (NORMAL)
[2020-04-19 02:59] LABS: CKMB % 4.4 % (<4); CREATINE KINASE MB 1.5 ng/mL (0-4.0); TROPONIN I 0.02 ng/mL (0-1.5)
[2020-04-19 05:47] LABS: ABG BASE EXCESS -8.9 mmol/L (-2.0-2.0)
[2020-04-19 05:48] LABS: ABG ALLEN TEST POS; ABG HCO3 16.8 mmol/L (22-26)
[2020-04-19] MEDS: PULMICORT NEB TX 0.5 MG NEB SCH ×2 (08:50→20:35)
[2020-04-19] MEDS: DUONEB 0.5 MG/3 MG (3 mL) NEB SCH ×4 (08:50→20:35)
[2020-04-19 09:25] LABS: CKMB % 3.6 % (<4); CREATINE KINASE MB 2.9 ng/mL (0-4.0); TROPONIN I 0.04 ng/mL (0-1.5)
--- NOTE | 2020-04-19 09:52 | DR.H&P ---
H&P - History & Physical for Day of: H&P Date: 04/18/20 - Chief Complaint Chief Complaint: DECREASED ALERTNESS, LETHARGIC, SOB - History of Present Illness History of Present Illness: IS A 85 YEAR OLD PATIENT OF OURS. SHE IS A RESIDENT OF [facility]. SHE PRESENTED TO THE ER WITH REPORTS OF DECREASED RESPONSIVENESS, LOW TEMPERATURE, AND SHORTNESS OF BREATH. PATIENT WAS DISCHARGED FROM THE HOSPITAL ON 04/16 AFTER TREATMENT OF DEHYDRATION, INFECTED DIABETIC ULCER TO THE RIGHT FOOT, AND A URINARY TRACT INFECTION. SHE ALSO TESTED POSITIVE FOR COVID-19 ON 04/16/20. HER PMH INCLUDES: CAD, CHF, MD, HYPERLIPIDEMIA, HTN, PNEUMONIA, GERD, HYSTERECTOMY, DIABETES II, ANEMIA, STENTS, PAC PLACEMENT. ON ARRIVAL TO THE ER, VITALS WERE 94.5-61-10-100%NC-122/51. LABS WERE OBTAINED. ABNORMAL LAB VALUES INCLUDE THE FOLLOWING: RBC 2.63, HGB 8.0, HCT 24.1, INR 1.33, CARBON DIOXIDE 18.2, BUN 39, CREATININE 3.00, CALCIUM 7.6, FERRITIN 1698, TOTAL PROTEIN 5.4, ALBUMIN 2.3, LACTATE DEHYDROGENASE 564, CRP 80.90. CARDIAC ENZYMES WERE WITHIN NORMAL LIMITS. URINALYSIS REVEALED: WBC TNTC, RBC 5-10, LEUKOCYTES 3+, BACTERIA TRACE, OCCULT BLOOD 4+, PROTEIN 3+. AN ABG WAS OBTAINED AND REVEALED: PH 7.290, PC02 35.0, P02 59.0, HC03 16.8, 02 SATURATION 87.0, BASE EXCESS -8.9. BLOOD AND URINE CULTURES WERE SET UP. A CHEST XRAY WAS OBTAINED AND REVEALED: Bilateral interstitial prominence and early alveolar infiltrates. Findings may represent atypical infection, including viral etiologies. EKG REVEALED: JUNCTIONAL RHYTHM WITH HR 63. A BEAR HUGGER WAS PLACED ON HER AND HER TEMPERATURE INCREASED TO 96.9. SHE WAS STARTED ON NS AND GIVEN ROCEPHIN 1G IV X 1 DOSE IN THE ER. SHE WAS ADMITTED FOR FURTHER EVALUATION AND TREATMENT OF HYPOTHERMIA, UROSEPSIS, ANEMIA, COVID-19, AND RENAL INSUFFICIENCY. SHE WAS STARTED ON NORMAL SALINE AT 125ML/HR, REMDESIVIR 100MG IV DAILY, SOLU- MEDROL 40MG IV Q8H, DUONEBS QID, PULMICORT NEBS BID, PLAQUENIL 200MG PO BID, ZINC 220MG PO DAILY, ROCEPHIN 1G IV DAILY. WE WILL REVIEW HER HOME MEDICATIONS. OTHERWISE, WE WILL FOLLOW UP WITH AM LABS AND CHEST XRAY AND CONTINUE TO MONITOR. - Past Medical History Past Medical History: Coronary Artery Disease, Hypertension, Diabetes, Renal Disease, Depression, Anemia, GERD, Arthritis, CHF Additional Medical History: Cataracts, Constipation, Urinary Tract Infections - Past Surgical History Surgical History: Angioplasty/Stents, Hysterectomy, Ortho Surgery, Other - Family History Family Medical History: Coronary Artery Disease, Hypertension - Social History Does patient currently use any type of tobacco product: No Have you used tobacco products in the last 12 months: No Type of Tobacco Use: None Does any household member use tobacco: No Alcohol Use: None Drug Use: None - Medications Home Medications: ezetimibe [From Zetia] Allergy (Verified 04/18/20 16:45) Influenza Virus Vaccines Allergy (Verified 04/18/20 16:45) Penicillins Allergy (Verified 04/18/20 16:45) pneumococcal vaccine Allergy (Verified 04/18/20 16:45) ropinirole [From Requip] Allergy (Verified 04/18/20 16:45) CONTINUE taking the following medications azithromycin 500 mg PO DAILY 04/19/20 [History] dextromethorphan-guaifenesin [Robitussin Cough-Chest Chi DM] 10 ml PO Q6H PRN 04/19/20 [History] remdesivir (EUA) 100 mg IV DAILY 04/19/20 [History] - Review of Systems Constitutional: Chills, Weakness Eyes: No Symptoms Reported ENT: No Symptoms Reported Respiratory: Shortness of Breath Cardiovascular: No Symptoms Reported Gastrointestinal: No Symptoms Reported Genitourinary: No Symptoms Reported Musculoskeletal: No Symptoms Reported Skin: Wound (RIGHT FOOT DIABETIC ULCER ) Neurological: Weakness - Physical Exam Vital Signs: Temperature 99.7 F Pulse Rate 93 Respiratory Rate 21 Blood Pressure [Left Arm] 168/65 Blood Pressure [Right Arm] 159/64 Blood Pressure 131/60 O2 Sat by Pulse Oximetry 96 Oriented: Person Eyes: Normal Ear: Normal Nose: Normal Throat: Normal Respiratory: Diminished Throughout Cardiovascular: Normal : Normal Auscultation: Bowel Sounds: Normal Palpation: Normal Tenderness: Normal Skin: Normal Musculoskeletal: Normal Psychiatric: Normal Mood Description: Flat Affect: Flat Speech Pattern: Clear - Assessment/Plan (1) COVID-19 Status: Acute Plan: ADMIT, NORMAL SALINE AT 125ML/HR, REMDESIVIR 100MG IV DAILY, SOLU-MEDROL 40MG IV Q8H, DUONEBS QID, PULMICORT NEBS BID, PLAQUENIL 200MG PO BID, ZINC 220MG PO DAILY, ROCEPHIN 1G IV DAILY. (2) Sepsis Qualifiers: Sepsis type: sepsis due to unspecified organism Severe sepsis acute organ dysfunction type: acute renal failure Acute renal failure type: unspecified Severe sepsis shock status: unspecified Status: Acute (3) Hypothermia Qualifiers: Encounter type: initial encounter Qualified Code(s): T68.XXXA - Hypothermia, initial encounter Status: Acute (4) UTI (urinary tract infection) Qualifiers: Urinary tract infection type: acute cystitis Hematuria presence: with hematuria Qualified Code(s): N30.01 - Acute cystitis with hematuria Status: Acute (5) Renal insufficiency Status: Chronic (6) Anemia Qualifiers: Anemia type: iron deficiency Iron deficiency anemia type: chronic blood 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
[2020-04-19] MEDS: ZINC SULFATE PO SCH (10:50)
[2020-04-19] MEDS: SOLU-Medrol 40 MG VIAL IVP SCH ×3 (10:50→21:36)
[2020-04-19] MEDS: NS 1000 ML 1,000 ML IV SCH ×2 (10:50→19:30)
[2020-04-19] MEDS: PLAQUENIL PO SCH ×2 (10:50→20:53)
[2020-04-19] MEDS: LOVENOX INJ 30 MG SYR SC SCH (10:51)
[2020-04-19 21:35] VITALS: BMI 32.2
[2020-04-19] MEDS: ROCEPHIN VIAL 1 GRAM 1 G in NS 100 ML IV + SPIKE MINIBAG* 100 ML IV SCH (23:00)
[2020-04-20] MEDS: NS 1000 ML 1,000 ML IV SCH ×2 (02:00→16:24)
[2020-04-20 05:40] LABS: BASOPHILS % (AUTO) 0.2 % (0.2-1.0); HEMATOCRIT 23.8 % (36.0-47.0); HEMOGLOBIN 7.9 g/dL (12.0-16.0); LYMPHOCYTES # (AUTO) 0.4 X10^3/uL (1.3-2.9); LYMPHOCYTES % (AUTO) 3.8 % (21.0-51.0); MEAN CORPUSCULAR HEMOGLOBIN 31.2 pg (27.0-34.0); MEAN CORPUSCULAR HGB CONC 33.3 g/dL (33.0-35.0); MEAN CORPUSCULAR VOLUME 93.9 fL (80.0-100.0); MEAN PLATELET VOLUME 7.6 fL (7.4-11.0); MONOCYTES # (AUTO) 0.2 x10^3/uL (0.3-0.8); MONOCYTES % (AUTO) 2.1 % (0.0-13.0); NEUTROPHILS # (AUTO) 9.7 x10^3/uL (2.2-4.8); NEUTROPHILS % (AUTO) 93.9 % (42.0-75.0); PLATELET COUNT 394 X10^3/uL (150.0-450.0); RED BLOOD COUNT 2.54 X10^6/uL (3.5-5.4); WHITE BLOOD COUNT 10.3 X10^3/uL (3.6-10.0)
[2020-04-20 05:42] LABS: ABG BASE EXCESS -15.7 mmol/L (-2.0-2.0)
[2020-04-20 05:44] LABS: ABG HCO3 9.9 mmol/L (22-26)
[2020-04-20 06:00] LABS: CALCIUM 7.4 mg/dL (8.5-10.1); CREATININE 3.15 mg/dL (0.55-1.02); TOTAL PROTEIN 5.8 g/dL (6.4-8.2)
--- NOTE | 2020-04-20 06:02 | RAD ---
HISTORYSOB pneumoniaSTUDYAP [id number]/2020FINDINGSStable heart size. Slight interval increase in diffuse bilateral mixed interstitial/alveolar infiltrates. No lobar consolidation, developing pneumothorax or large pleural effusion. No change in position of left subclavian injection port.IMPRESSIONSlight interval increase in bilateral infiltrates/pneumonia.Electronically signed by: VITALY MERCHANT (Apr 20, 2020 06:01:42)
[2020-04-20] MEDS: SOLU-Medrol 40 MG VIAL IVP SCH ×3 (06:18→22:19)
[2020-04-20 06:24] LABS: BAND NEUTROPHILS % 6 % (0-10); PLATELET MORPHOLOGY COMMENT NORMAL (NORMAL)
[2020-04-20 06:25] LABS: ANISOCYTOSIS SLIGHT; BURR CELLS PRESENT; HYPOCHROMASIA SLIGHT; OVALOCYTES PRESENT
[2020-04-20 06:32] LABS: CARBON DIOXIDE 11.5 mmol/L (21-32)
[2020-04-20] MEDS: DUONEB 0.5 MG/3 MG (3 mL) NEB SCH ×4 (08:30→21:20)
[2020-04-20] MEDS: PULMICORT NEB TX 0.5 MG NEB SCH ×2 (08:30→21:20)
[2020-04-20] MEDS: LOVENOX INJ 30 MG SYR SC SCH (09:50)
[2020-04-20] MEDS: ZINC SULFATE PO SCH (09:54)
[2020-04-20] MEDS: PLAQUENIL PO SCH ×2 (09:54→20:16)
[2020-04-20] MEDS ORDERED: MORPHINE SULFATE INJ 2 MG INJ ONE (11:19)
[2020-04-20] MEDS ORDERED: LASIX ONE (11:20)
[2020-04-20] MEDS: REMDESIVIR (INVESTIGATIONAL DRUG GS-5734) 100 MG in NS 250 ML IV 250 ML IV SCH (11:40)
[2020-04-20] MEDS: LASIX IVP ONE ×2 (11:40→11:45)
[2020-04-20] MEDS: MORPHINE SULFATE INJ 2 MG INJ IVP PRN ×2 (11:45→16:30)
[2020-04-20] MEDS: ROCEPHIN VIAL 1 GRAM 1 G in NS 100 ML IV + SPIKE MINIBAG* 100 ML IV SCH (22:19)
[2020-04-21] MEDS: HumuLIN R SUBCUT PRN ×4 (00:15→22:00)
[2020-04-21] MEDS ORDERED: HumuLIN R ONE (00:23)
[2020-04-21] MEDS: NS 1000 ML 1,000 ML IV SCH (03:54)
[2020-04-21 05:35] LABS: ABG BASE EXCESS -13.2 mmol/L (-2.0-2.0)
[2020-04-21 05:36] LABS: ABG HCO3 12.7 mmol/L (22-26)
[2020-04-21 05:37] LABS: ABG ALLEN TEST POS
[2020-04-21 05:38] LABS: BASOPHILS % (AUTO) 0.2 % (0.2-1.0); HEMATOCRIT 24.2 % (36.0-47.0); HEMOGLOBIN 7.7 g/dL (12.0-16.0); LYMPHOCYTES # (AUTO) 0.3 X10^3/uL (1.3-2.9); LYMPHOCYTES % (AUTO) 3.2 % (21.0-51.0); MEAN CORPUSCULAR HEMOGLOBIN 29.9 pg (27.0-34.0); MEAN CORPUSCULAR HGB CONC 31.9 g/dL (33.0-35.0); MEAN CORPUSCULAR VOLUME 93.9 fL (80.0-100.0); MEAN PLATELET VOLUME 7.2 fL (7.4-11.0); MONOCYTES # (AUTO) 0.5 x10^3/uL (0.3-0.8); MONOCYTES % (AUTO) 4.1 % (0.0-13.0); NEUTROPHILS # (AUTO) 10.2 x10^3/uL (2.2-4.8); NEUTROPHILS % (AUTO) 92.5 % (42.0-75.0); PLATELET COUNT 415 X10^3/uL (150.0-450.0); RED BLOOD COUNT 2.57 X10^6/uL (3.5-5.4); RED CELL DISTRIBUTION WIDTH 17.5 % (11.6-16.5)
[2020-04-21 05:57] LABS: ALBUMIN 2.1 g/dL (3.4-5.0); CALCIUM 7.3 mg/dL (8.5-10.1); COR CA(FOR HYPOALB) 8.8 mg/dL (8.5-10.1); CREATININE 3.54 mg/dL (0.55-1.02); MAGNESIUM 1.6 mg/dL (1.7-2.9); TOTAL PROTEIN 5.8 g/dL (6.4-8.2)
[2020-04-21 06:09] LABS: CARBON DIOXIDE 13.1 mmol/L (21-32)
[2020-04-21 06:17] LABS: BAND NEUTROPHILS % 4 % (0-10); PLATELET MORPHOLOGY COMMENT NORMAL (NORMAL)
[2020-04-21 06:18] LABS: ANISOCYTOSIS SLIGHT; HYPOCHROMASIA SLIGHT; OVALOCYTES PRESENT
[2020-04-21] MEDS: SOLU-Medrol 40 MG VIAL IVP SCH ×3 (06:42→22:07)
--- NOTE | 2020-04-21 07:02 | RAD ---
HISTORYSOB, COVID-19+STUDYCHEST, 1 [id number]/01/2020FINDINGSThe trachea is midline. The cardiac silhouette is stable.. Diffuse bilateral interstitial and alveolar infiltrates slightly improved from previous 04/20/2020. No pneumothorax. Left Port-A-Cath unchanged in position.. The bony thorax is unremarkable.IMPRESSIONDiffuse bilateral interstitial and alveolar infiltrates slightly improved from previous 04/20/2020Electronically signed by: Ammon Ramirez (Apr 21, 2020 07:01:29)
[2020-04-21] MEDS: PULMICORT NEB TX 0.5 MG NEB SCH ×2 (08:25→20:35)
[2020-04-21] MEDS: DUONEB 0.5 MG/3 MG (3 mL) NEB SCH ×4 (08:25→20:35)
[2020-04-21] MEDS: REMDESIVIR (INVESTIGATIONAL DRUG GS-5734) 100 MG in NS 250 ML IV 250 ML IV SCH (08:45)
[2020-04-21] MEDS: ZINC SULFATE PO SCH (08:45)
[2020-04-21] MEDS: LOVENOX INJ 30 MG SYR SC SCH (08:45)
[2020-04-21] MEDS: MORPHINE SULFATE INJ 2 MG INJ IVP PRN ×2 (10:45→22:08)
--- NOTE | 2020-04-21 11:19 | PCM.PROG ---
Progress Note - Progress Note for Day of Date of Exam: 04/20/20 - Subjective Subjective: IS BEING TREATED FOR PNEUMONIA DUE TO COVID-19, UROSEPSIS, RENAL INSUFFICIENCY, AND ANEMIA. TODAY, SHE IS ALERT AND ORIENTED, LYING IN BED ON MORNING ROUNDS. SHE CONTINUES WITH WEAKNESS AND SHORTNESS OF BREATH TODAY. SHE IS NOTED TO HAVE A NON-PRODUCTIVE COUGH THIS MORNING. SHE REP ORTS THAT SHORTNESS OF BREATH HAS WORSENED THIS MORNING. ON EXAMINATION, HEART IS REGULAR IN RATE AND RHYTHM. BILATERAL LUNGS ARE NOTED WITH SCATTERED WHEEZING AND RHONCHI THROUGHOUT. ABDOMEN IS ROUND, SOFT, AND NON-TENDER WITH NORMAL BOWEL SOUNDS NOTED IN ALL QUADRANTS. HER VITALS THIS MORNING ARE: 98.1-100-23-80%NC-140/61. LABS WERE OBTAINED. ABNORMAL LAB VALUES INCLUDE THE FOLLOWING: WBC 10.3, RBC 2.54, HGB 7.9, HCT 23.8, CARBON DIOXIDE 11.5, BUN 45, CREATININE 3.15, GLUCOSE 262, CALCIUM 7.4, FERRITIN 1686, AST 38, CRP 90.20, TOTAL BILI 5.8, ALBUMIN 2.0. AN ABG WAS REPEATED THIS MORNING AND REVEALED: PH 7.240, PC02 23.0, P02 71.0, HC03 9.9, BASE EXCESS -15.7, 02 SATURATION 91.0, FI02 28.0. BLOOD CULTURES ARE PENDING. A CHEST XRAY WAS OBTAINED AND REVEALED: Slight interval increase in bilateral infiltrates/pneumonia. SHE IS CURRENTLY RECEIVING NS AT 50 ML/HR, PROCALAMINE AT 40 ML/HR, LEVAQUIN 500MG IV DAILY, REMDESIVIR 100MG IV DAILY, DUONEBS QID, PULMICORT NEBS BID, ALBUMIN 25% IV DAILY, PLAQUENIL 200MG PO BID, SOLU-MEDROL 40MG IV Q4H, LOVENOX 30MG SC BID, AND ZINC 200MG PO BID. HER HOME MEDICATIONS WERE RESUMED. WE WILL CONTINUE WITH CURRENT PLAN OF CARE TODAY AND ADMINISTER LASIX 20MG IV X 1 DOSE. OTHERWISE, WE WILL FOLLOW UP WITH AM LABS AND CONTINUE TO MONITOR. - Past Medical Family Social History Past Med/Fam/Surg Hx: No changes since H&P Allergies: Allergies ezetimibe [From Zetia] Allergy (Verified 04/18/20 16:45) Influenza Virus Vaccines Allergy (Verified 04/18/20 16:45) Penicillins Allergy (Verified 04/18/20 16:45) pneumococcal vaccine Allergy (Verified 04/18/20 16:45) ropinirole [From Requip] Allergy (Verified 04/18/20 16:45) - Review of Systems ROS: No change since H&P - Vital Signs and I&O's Vital Signs: Temperature 98.6 F Pulse Rate 87 Respiratory Rate 15 Blood Pressure [Left Arm] 168/65 Blood Pressure [Right Arm] 159/64 Blood Pressure 116/58 O2 Sat by Pulse Oximetry 100 Intake and Output: Intake & Output 04/18/20 04/19/20 04/20/20 04/21/20 11:59 11:59 11:59 11:59 Intake Total 914 / 914 1608 / 1608 1512 / 1512 Output Total 200 / 200 1070 / 1070 600 / 600 Balance 714 / 714 538 / 538 912 / 912 - Physical Exam Oriented: Normal Eyes: Normal Ear: Normal Nose: Normal Throat: Normal Respiratory: Wheezes, Rhonchi Cardiovascular: Normal : Normal Auscultation: Bowel Sounds: Normal Palpation: Normal Tenderness: Normal Skin: Normal Musculoskeletal: Normal Psychiatric: Normal Mood Description: Flat Affect: Flat Speech Pattern: Unclear, Delayed - Laboratory and Diagnostics Result Diagrams: 04/21/20 04:13 04/21/20 04:13 Labs: 04/18/20 16:35 Urine,Catheterized Urine Culture - Final 04/18/20 17:10 Blood Blood Culture - Preliminary 04/18/20 18:05 Blood Blood Culture - Preliminary Laboratory WBC 11.0 X10^3/uL (3.6-10.0) H 04/21/20 04:13 RBC 2.57 X10^6/uL (3.5-5.4) L 04/21/20 04:13 Hgb 7.7 g/dL (12.0-16.0) L 04/21/20 04:13 Hct 24.2 % (36.0-47.0) L 04/21/20 04:13 MCV 93.9 fL (80.0-100.0) 04/21/20 04:13 MCH 29.9 pg (27.0-34.0) 04/21/20 04:13 MCHC 31.9 g/dL (33.0-35.0) L 04/21/20 04:13 RDW 17.5 % (11.6-16.5) H 04/21/20 04:13 Plt Count 415 X10^3/uL (150.0-450.0) 04/21/20 04:13 Plt Count Comment Adequate (ADEQUATE) 04/21/20 04:13 MPV 7.2 fL (7.4-11.0) L 04/21/20 04:13 Neut % (Auto) 92.5 % (42.0-75.0) H 04/21/20 04:13 Lymph % (Auto) 3.2 % (21.0-51.0) L 04/21/20 04:13 Major % (Auto) 4.1 % (0.0-13.0) 04/21/20 04:13 Eos % (Auto) 0.0 % (0.9-2.9) L 04/21/20 04:13 Baso % (Auto) 0.2 % (0.2-1.0) 04/21/20 04:13 Neut # (Auto) 10.2 x10^3/uL (2.2-4.8) H 04/21/20 04:13 Lymph # (Auto) 0.3 X10^3/uL (1.3-2.9) L 04/21/20 04:13 Major # (Auto) 0.5 x10^3/uL (0.3-0.8) 04/21/20 04:13 Eos # (Auto) 0.0 x10^3/uL (0.0-0.2) 04/21/20 04:13 Baso # (Auto) 0.0 X10^3/uL (0.0-0.1) 04/21/20 04:13 Absolute Nucleated RBC 0.0 /100WBC 04/21/20 04:13 Total Counted 100 04/21/20 04:13 Neutrophils % (Manual) 91 % (39-76) H 04/21/20 04:13 Band Neutrophils % 4 % (0-10) 04/21/20 04:13 Lymphocytes % (Manual) 1 % (13-43) L 04/21/20 04:13 Monocytes % (Manual) 4 % (4-9) 04/21/20 04:13 Plt Morphology Comment Normal (NORMAL) 04/21/20 04:13 RBC Morphology Abnormal (NORMAL) A 04/21/20 04:13 Hypochromasia Slight A 04/21/20 04:13 Anisocytosis Slight A 04/21/20 04:13 Ovalocytes Present 04/21/20 04:13 Collette Cells Present 04/20/20 04:06 PT 16.1 SECONDS (11.8-14.3) 04/19/20 02:10 INR Target Range - 04/19/20 02:10 INR 1.33 (0.8-1.3) H 04/19/20 02:10 APTT 53.3 SECONDS (22.9-36.5) H 04/19/20 02:10 PTT Comment - 04/19/20 02:10 Sample Site Rra 04/21/20 05:33 ABG pH 7.250 (7.35-7.45) L 04/21/20 05:33 ABG pCO2 29.0 mmHg (35.0-45.0) L 04/21/20 05:33 ABG pO2 153.0 mmHg (80.0-100.0) H 04/21/20 05:33 ABG HCO3 12.7 mmol/L (22-26) L* 04/21/20 05:33 ABG O2 Saturation 99.0 % (90-100) 04/21/20 05:33 ABG Base Excess -13.2 mmol/L (-2.0-2.0) L 04/21/20 05:33 Mart Test Pos 04/21/20 05:33 A-a Gradient 96.0 mmHg 04/21/20 05:33 FiO2 40.0 04/21/20 05:33 Blood Gas Comments Pt pool well eb 04/21/20 05:33 Sodium 138 mmol/L (136-145) 04/21/20 04:13 Corrected Sodium 143 mmol/L (136-145) 04/21/20 04:13 Potassium 4.7 mmol/L (3.5-5.1) 04/21/20 04:13 Chloride 107 mmol/L (98-107) 04/21/20 04:13 Carbon Dioxide 13.1 mmol/L (21-32) L* 04/21/20 04:13 BUN 64 mg/dL (7-18) H 04/21/20 04:13 Creatinine 3.54 mg/dL (0.55-1.02) H 04/21/20 04:13 Est GFR (MDRD) Af Amer 16 (>60) L 04/21/20 04:13 Est GFR (MDRD) Non-Af 13 (>60) L 04/21/20 04:13 Glucose 329 mg/dL (65-99) H 04/21/20 04:13 Lactic Acid 1.1 mmol/L (0.4-2.0) 04/18/20 18:05 Calcium 7.3 mg/dL (8.5-10.1) L 04/21/20 04:13 Corrected Calcium 8.8 mg/dL (8.5-10.1) 04/21/20 04:13 Magnesium 1.6 mg/dL (1.7-2.9) L 04/21/20 04:13 Ferritin 1646 ng/mL (8-252) H 04/21/20 04:13 Total Bilirubin 0.30 mg/dL (0.2-1.0) 04/21/20 04:13 AST 39 Units/L (15-37) H 04/21/20 04:13 ALT 15 Units/L (12-78) 04/21/20 04:13 Alkaline Phosphatase 81 Units/L (46-116) 04/21/20 04:13 Lactate Dehydrogenase 564 Units/L (81-234) H 04/18/20 18:05 Creatine Kinase 81 Units/L (26-192) 04/19/20 08:35 CK-MB (CK-2) 2.9 ng/mL (0-4.0) 04/19/20 08:35 CK/CKMB % Calc 3.6 % (<4) 04/19/20 08:35 Troponin I 0.04 ng/mL (0-1.5) 04/19/20 08:35 C-Reactive Protein 61.40 mg/L (0-3.0) H 04/21/20 04:13 B-Natriuretic Peptide 1920 pg/mL (0-79) H* 04/21/20 04:13 Total Protein 5.8 g/dL (6.4-8.2) L 04/21/20 04:13 Albumin 2.1 g/dL (3.4-5.0) L 04/21/20 04:13 Globulin 3.7 g/dL (2.5-4.5) 04/21/20 04:13 Albumin/Globulin Ratio 0.6 Ratio (1.1-2.1) L 04/21/20 04:13 Specimen Type Catherized urine 04/18/20 16:35 Urine Color Yellow (YELLOW) 04/18/20 16:35 Urine Appearance Cloudy (CLEAR) 04/18/20 16:35 Urine pH 6.0 (5.0 - 8.0) 04/18/20 16:35 Ur Specific [facility] 1.020 (1.000-1.030) 04/18/20 16:35 Urine Protein 3+ (NEGATIVE) 04/18/20 16:35 Urine Glucose (UA) Negative (NEGATIVE) 04/18/20 16:35 Urine Ketones Negative (NEGATIVE) 04/18/20 16:35 Urine Occult Blood 4+ (NEGATIVE) 04/18/20 16:35 Urine Nitrite Negative (NEGATIVE) 04/18/20 16:35 Urine Bilirubin Negative (NEGATIVE) 04/18/20 16:35 Urine Urobilinogen Normal (NORMAL) 04/18/20 16:35 Ur Leukocyte Esterase 3+ (NEGATIVE) 04/18/20 16:35 Urine RBC 5-10 /HPF (0-3) A 04/18/20 16:35 Urine WBC Tntc /HPF (0-5) A 04/18/20 16:35 Ur Squamous Epith Cells Rare /HPF (NEGATIVE) 04/18/20 16:35 Urine Bacteria Trace /HPF (NEGATIVE) 04/18/20 16:35 Ur Culture Indicated? Yes/culture set up 04/18/20 16:35 - Plan (1) COVID-19 Status: Acute Plan: NORMAL SALINE AT 125ML/HR, REMDESIVIR 100MG IV DAILY, SOLU-MEDROL 40MG IV Q8H, DUONEBS QID, PULMICORT NEBS BID, PLAQUENIL 200MG PO BID, ZINC 220MG PO DAILY, ROCEPHIN 1G IV DAILY. (2) Sepsis Status: Acute Qualifiers: Sepsis type: sepsis due to unspecified organism Severe sepsis acute organ dysfunction type: acute renal failure Acute renal failure type: unspecified Severe sepsis shock status: unspecified (3) Hypothermia Status: Acute Qualifiers: Encounter type: initial encounter Qualified Code(s): T68.XXXA - Hypothermia, initial encounter (4) UTI (urinary tract infection) Status: Acute Qualifiers: Urinary tract infection type: acute cystitis Hematuria presence: with hematuria Qualified Code(s): N30.01 - Acute cystitis with hematuria (5) Renal insufficiency Status: Chronic (6) Anemia Status: Chronic Qualifiers: Anemia type: iron deficiency Iron deficiency anemia type: chronic blood 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
--- NOTE | 2020-04-21 12:41 | PCM.PROG ---
Progress Note - Progress Note for Day of Date of Exam: 04/21/20 - Subjective Subjective: IS BEING TREATED FOR PNEUMONIA DUE TO COVID-19, UROSEPSIS, RENAL INSUFFICIENCY, AND ANEMIA. TODAY, SHE IS ALERT AND ORIENTED, LYING IN BED ON MORNING ROUNDS. SHE CONTINUES WITH WEAKNESS AND SHORTNESS OF BREATH TODAY. SHE REPORTS THAT SHORTNESS OF BREATH HAS SLIGHTLY IMROVED TODAY. SHE WAS PLACED ON BIPAP THROUGHOUT THE NIGHT DUE TO INCREASED SOB AT THAT TIME. ON EXAMINATION, HEART IS REGULAR IN RATE AND RHYTHM. BILATERAL LUNGS ARE NOTED WITH SCATTERED WHEEZING AND RHONCHI THROUGHOUT. ABDOMEN IS ROUND, SOFT, AND NON-TENDER WITH NORMAL BOWEL SOUNDS NOTED IN ALL QUADRANTS. HER VITALS THIS MORNING ARE: 98.6-87-15-100%BIPAP-116/58. LABS WERE OBTAINED. ABNORMAL LAB VALUES INCLUDE THE FOLLOWING: WBC 11.0, RBC 2.57, HGB 7.7, HCT 24.2, CARBON DIOXIDE 13.1, BUN 64, CREATININE 3.54, GLUCOSE 329, FERRITIN 1646, AST 39, CRP 61.40, BNP 1920, TOTAL PROTEIN 5.8, ALBUMIN 2.1. AN ABG WAS REPEATED THIS MORNING AND REVEALED: PH 7.250, RBC 29.0, P02 153, HC03 12.7, BASE EXCESS -13.2, 02 SATURATION 99.0, BASE EXCESS -13.2. BLOOD CULTURES ARE PENDING. A CHEST XRAY WAS OBTAINED AND REVEALED : Diffuse bilateral interstitial and alveolar infiltrates slightly improved from previous. SHE IS CURRENTLY RECEIVING NORMAL SALINE AT 125ML/HR, REMDESIVIR 100MG IV DAILY, SOLU-MEDROL 40MG IV Q8H, DUONEBS QID, PULMICORT NEBS BID, PLAQUENIL 200MG PO BID, ZINC 220MG PO DAILY, ROCEPHIN 1G IV DAILY. HER HOME MEDICATIONS WERE RESUMED. WE WILL DECREASE IV FLUIDS TO 75 ML/HR, INCREASE SOLU- MEDROL TO 80MG IV Q8H, ADD AN AMP OF BICARB TO EACH LITER OF IV FLUIDS, AND CHECK A BNP. OTHERWISE, WE WILL FOLLOW UP WITH AM LABS AND CONTINUE TO MONITOR. - Past Medical Family Social History Past Med/Fam/Surg Hx: No changes since H&P Allergies: Allergies ezetimibe [From Zetia] Allergy (Verified 04/18/20 16:45) Influenza Virus Vaccines Allergy (Verified 04/18/20 16:45) Penicillins Allergy (Verified 04/18/20 16:45) pneumococcal vaccine Allergy (Verified 04/18/20 16:45) ropinirole [From Requip] Allergy (Verified 04/18/20 16:45) - Review of Systems ROS: No change since H&P - Vital Signs and I&O's Vital Signs: Temperature 98.6 F Pulse Rate 87 Respiratory Rate 15 Blood Pressure [Left Arm] 168/65 Blood Pressure [Right Arm] 159/64 Blood Pressure 116/58 O2 Sat by Pulse Oximetry 100 Intake and Output: Intake & Output 04/19/20 04/20/20 04/21/20 04/22/20 11:59 11:59 11:59 11:59 Intake Total 914 / 914 1608 / 1608 1512 / 1512 Output Total 200 / 200 1070 / 1070 600 / 600 Balance 714 / 714 538 / 538 912 / 912 - Physical Exam Oriented: Normal Eyes: Normal Ear: Normal Nose: Normal Throat: Normal Respiratory: Wheezes, Rhonchi Cardiovascular: Normal : Normal Auscultation: Bowel Sounds: Normal Tenderness: Normal Skin: Normal Musculoskeletal: Normal Psychiatric: Normal Mood Description: Flat Affect: Flat Speech Pattern: Unclear, Delayed - Laboratory and Diagnostics Result Diagrams: 04/21/20 04:13 04/21/20 04:13 Labs: 04/18/20 16:35 Urine,Catheterized Urine Culture - Final 04/18/20 17:10 Blood Blood Culture - Preliminary 04/18/20 18:05 Blood Blood Culture - Preliminary Laboratory WBC 11.0 X10^3/uL (3.6-10.0) H 04/21/20 04:13 RBC 2.57 X10^6/uL (3.5-5.4) L 04/21/20 04:13 Hgb 7.7 g/dL (12.0-16.0) L 04/21/20 04:13 Hct 24.2 % (36.0-47.0) L 04/21/20 04:13 MCV 93.9 fL (80.0-100.0) 04/21/20 04:13 MCH 29.9 pg (27.0-34.0) 04/21/20 04:13 MCHC 31.9 g/dL (33.0-35.0) L 04/21/20 04:13 RDW 17.5 % (11.6-16.5) H 04/21/20 04:13 Plt Count 415 X10^3/uL (150.0-450.0) 04/21/20 04:13 Plt Count Comment Adequate (ADEQUATE) 04/21/20 04:13 MPV 7.2 fL (7.4-11.0) L 04/21/20 04:13 Neut % (Auto) 92.5 % (42.0-75.0) H 04/21/20 04:13 Lymph % (Auto) 3.2 % (21.0-51.0) L 04/21/20 04:13 [place] % (Auto) 4.1 % (0.0-13.0) 04/21/20 04:13 Eos % (Auto) 0.0 % (0.9-2.9) L 04/21/20 04:13 Baso % (Auto) 0.2 % (0.2-1.0) 04/21/20 04:13 Neut # (Auto) 10.2 x10^3/uL (2.2-4.8) H 04/21/20 04:13 Lymph # (Auto) 0.3 X10^3/uL (1.3-2.9) L 04/21/20 04:13 [place] # (Auto) 0.5 x10^3/uL (0.3-0.8) 04/21/20 04:13 Eos # (Auto) 0.0 x10^3/uL (0.0-0.2) 04/21/20 04:13 Baso # (Auto) 0.0 X10^3/uL (0.0-0.1) 04/21/20 04:13 Absolute Nucleated RBC 0.0 /100WBC 04/21/20 04:13 Total Counted 100 04/21/20 04:13 Neutrophils % (Manual) 91 % (39-76) H 04/21/20 04:13 Band Neutrophils % 4 % (0-10) 04/21/20 04:13 Lymphocytes % (Manual) 1 % (13-43) L 04/21/20 04:13 Monocytes % (Manual) 4 % (4-9) 04/21/20 04:13 Plt Morphology Comment Normal (NORMAL) 04/21/20 04:13 RBC Morphology Abnormal (NORMAL) A 04/21/20 04:13 Hypochromasia Slight A 04/21/20 04:13 Anisocytosis Slight A 04/21/20 04:13 Ovalocytes Present 04/21/20 04:13 [place] Cells Present 04/20/20 04:06 PT 16.1 SECONDS (11.8-14.3) 04/19/20 02:10 INR Target Range - 04/19/20 02:10 INR 1.33 (0.8-1.3) H 04/19/20 02:10 APTT 53.3 SECONDS (22.9-36.5) H 04/19/20 02:10 PTT Comment - 04/19/20 02:10 Sample Site Rra 04/21/20 05:33 ABG pH 7.250 (7.35-7.45) L 04/21/20 05:33 ABG pCO2 29.0 mmHg (35.0-45.0) L 04/21/20 05:33 ABG pO2 153.0 mmHg (80.0-100.0) H 04/21/20 05:33 ABG HCO3 12.7 mmol/L (22-26) L* 04/21/20 05:33 ABG O2 Saturation 99.0 % (90-100) 04/21/20 05:33 ABG Base Excess -13.2 mmol/L (-2.0-2.0) L 04/21/20 05:33 Mart Test Pos 04/21/20 05:33 A-a Gradient 96.0 mmHg 04/21/20 05:33 FiO2 40.0 04/21/20 05:33 Blood Gas Comments Pt pool well eb 04/21/20 05:33 Sodium 138 mmol/L (136-145) 04/21/20 04:13 Corrected Sodium 143 mmol/L (136-145) 04/21/20 04:13 Potassium 4.7 mmol/L (3.5-5.1) 04/21/20 04:13 Chloride 107 mmol/L (98-107) 04/21/20 04:13 Carbon Dioxide 13.1 mmol/L (21-32) L* 04/21/20 04:13 BUN 64 mg/dL (7-18) H 04/21/20 04:13 Creatinine 3.54 mg/dL (0.55-1.02) H 04/21/20 04:13 Est GFR (MDRD) Af Amer 16 (>60) L 04/21/20 04:13 Est GFR (MDRD) Non-Af 13 (>60) L 04/21/20 04:13 Glucose 329 mg/dL (65-99) H 04/21/20 04:13 Lactic Acid 1.1 mmol/L (0.4-2.0) 04/18/20 18:05 Calcium 7.3 mg/dL (8.5-10.1) L 04/21/20 04:13 Corrected Calcium 8.8 mg/dL (8.5-10.1) 04/21/20 04:13 Magnesium 1.6 mg/dL (1.7-2.9) L 04/21/20 04:13 Ferritin 1646 ng/mL (8-252) H 04/21/20 04:13 Total Bilirubin 0.30 mg/dL (0.2-1.0) 04/21/20 04:13 AST 39 Units/L (15-37) H 04/21/20 04:13 ALT 15 Units/L (12-78) 04/21/20 04:13 Alkaline Phosphatase 81 Units/L (46-116) 04/21/20 04:13 Lactate Dehydrogenase 564 Units/L (81-234) H 04/18/20 18:05 Creatine Kinase 81 Units/L (26-192) 04/19/20 08:35 CK-MB (CK-2) 2.9 ng/mL (0-4.0) 04/19/20 08:35 CK/CKMB % Calc 3.6 % (<4) 04/19/20 08:35 Troponin I 0.04 ng/mL (0-1.5) 04/19/20 08:35 C-Reactive Protein 61.40 mg/L (0-3.0) H 04/21/20 04:13 B-Natriuretic Peptide 1920 pg/mL (0-79) H* 04/21/20 04:13 Total Protein 5.8 g/dL (6.4-8.2) L 04/21/20 04:13 Albumin 2.1 g/dL (3.4-5.0) L 04/21/20 04:13 Globulin 3.7 g/dL (2.5-4.5) 04/21/20 04:13 Albumin/Globulin Ratio 0.6 Ratio (1.1-2.1) L 04/21/20 04:13 Specimen Type Catherized urine 04/18/20 16:35 Urine Color Yellow (YELLOW) 04/18/20 16:35 Urine Appearance Cloudy (CLEAR) 04/18/20 16:35 Urine pH 6.0 (5.0 - 8.0) 04/18/20 16:35 Ur Specific [place] 1.020 (1.000-1.030) 04/18/20 16:35 Urine Protein 3+ (NEGATIVE) 04/18/20 16:35 Urine Glucose (UA) Negative (NEGATIVE) 04/18/20 16:35 Urine Ketones Negative (NEGATIVE) 04/18/20 16:35 Urine Occult Blood 4+ (NEGATIVE) 04/18/20 16:35 Urine Nitrite Negative (NEGATIVE) 04/18/20 16:35 Urine Bilirubin Negative (NEGATIVE) 04/18/20 16:35 Urine Urobilinogen Normal (NORMAL) 04/18/20 16:35 Ur Leukocyte Esterase 3+ (NEGATIVE) 04/18/20 16:35 Urine RBC 5-10 /HPF (0-3) A 04/18/20 16:35 Urine WBC Tntc /HPF (0-5) A 04/18/20 16:35 Ur Squamous Epith Cells Rare /HPF (NEGATIVE) 04/18/20 16:35 Urine Bacteria Trace /HPF (NEGATIVE) 04/18/20 16:35 Ur Culture Indicated? Yes/culture set up 04/18/20 16:35 - Plan (1) COVID-19 Status: Acute Plan: NORMAL SALINE WITH 1 AMP BICARB AT 75ML/HR, REMDESIVIR 100MG IV DAILY, SOLU-MEDROL 80MG IV Q8H, DUONEBS QID, PULMICORT NEBS BID, PLAQUENIL 200MG PO BID, ZINC 220MG PO DAILY, ROCEPHIN 1G IV DAILY. BIPAP (2) Sepsis Status: Acute Qualifiers: Sepsis type: sepsis due to unspecified organism Severe sepsis acute organ dysfunction type: acute renal failure Acute renal failure type: unspecified Severe sepsis shock status: unspecified (3) Hypothermia Status: Acute Qualifiers: Encounter type: initial encounter Qualified Code(s): T68.XXXA - Hypothermia, initial encounter (4) UTI (urinary tract infection) Status: Acute Qualifiers: Urinary tract infection type: acute cystitis Hematuria presence: with hematuria Qualified Code(s): N30.01 - Acute cystitis with hematuria (5) Renal insufficiency Status: Chronic (6) Anemia Status: Chronic Qualifiers: Anemia type: iron deficiency Iron deficiency anemia type: chronic blood 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
[2020-04-21] MEDS: NS 1000 ML 1,000 ML with SODIUM BICARBONATE 8.4% INJ ADULT 50 ML IV SCH ×2 (12:45)
[2020-04-21] MEDS: ROCEPHIN VIAL 1 GRAM 1 G in NS 100 ML IV + SPIKE MINIBAG* 100 ML IV SCH (22:07)
[2020-04-21] MEDS: SNACK - Diabetic Appropriate PO SCH (23:09)
[2020-04-22] MEDS ORDERED: MAGNESIUM SULFATE 1 GRAM/100 mL PREMIX 1 GM/100 ML BAG IV PRN (00:06)
[2020-04-22] MEDS ORDERED: K-RIDER 10 MEQ/NS 100 ML 10 MEQ/100 ML BAG IV PRN (00:06)
[2020-04-22] MEDS ORDERED: KLOR-CON PO PRN (00:06)
[2020-04-22] MEDS ORDERED: POTASSIUM CHLORIDE LIQ 20 MEQ UDC PO PRN (00:06)
[2020-04-22] MEDS ORDERED: K-DUR TAB 20 MEQ PO PRN (00:06)
[2020-04-22] MEDS ORDERED: POTASSIUM CHL 60 MEQ/NS 0.45% 500 ML IV PRN (00:06)
[2020-04-22] MEDS ORDERED: MICRO K EXTEN CAP 10 MEQ PO PRN (00:06)
[2020-04-22] MEDS ORDERED: POTASSIUM CHL 40 MEQ/NS 0.45% 500 ML IV PRN (00:06)
[2020-04-22] MEDS: NS 1000 ML 1,000 ML with SODIUM BICARBONATE 8.4% INJ ADULT 50 ML IV SCH ×6 (00:50→15:35)
[2020-04-22] MEDS: HumuLIN R SUBCUT PRN ×3 (00:53→22:39)
[2020-04-22 05:10] LABS: BASOPHILS % (AUTO) 0.1 % (0.2-1.0); HEMATOCRIT 23.7 % (36.0-47.0); HEMOGLOBIN 7.8 g/dL (12.0-16.0); LYMPHOCYTES # (AUTO) 0.2 X10^3/uL (1.3-2.9); LYMPHOCYTES % (AUTO) 1.5 % (21.0-51.0); MEAN CORPUSCULAR HEMOGLOBIN 30.6 pg (27.0-34.0); MEAN CORPUSCULAR HGB CONC 32.7 g/dL (33.0-35.0); MEAN CORPUSCULAR VOLUME 93.3 fL (80.0-100.0); MEAN PLATELET VOLUME 7.4 fL (7.4-11.0); MONOCYTES # (AUTO) 0.4 x10^3/uL (0.3-0.8); NEUTROPHILS # (AUTO) 9.7 x10^3/uL (2.2-4.8); NEUTROPHILS % (AUTO) 94.4 % (42.0-75.0); PLATELET COUNT 404 X10^3/uL (150.0-450.0); RED BLOOD COUNT 2.54 X10^6/uL (3.5-5.4); RED CELL DISTRIBUTION WIDTH 17.4 % (11.6-16.5); WHITE BLOOD COUNT 10.3 X10^3/uL (3.6-10.0)
[2020-04-22 05:20] LABS: ALBUMIN 2.2 g/dL (3.4-5.0); CALCIUM 7.7 mg/dL (8.5-10.1); CARBON DIOXIDE 17.9 mmol/L (21-32); COR CA(FOR HYPOALB) 9.1 mg/dL (8.5-10.1); CREATININE 3.52 mg/dL (0.55-1.02); MAGNESIUM 1.7 mg/dL (1.7-2.9); TOTAL PROTEIN 5.8 g/dL (6.4-8.2)
[2020-04-22] MEDS: SOLU-Medrol 40 MG VIAL IVP SCH ×3 (05:27→21:30)
[2020-04-22 06:09] LABS: ANISOCYTOSIS SLIGHT; BAND NEUTROPHILS % 5 % (0-10); HYPOCHROMASIA SLIGHT; PLATELET MORPHOLOGY COMMENT NORMAL (NORMAL)
--- NOTE | 2020-04-22 06:26 | RAD ---
HISTORYSOBSTUDYCHEST, 1 [id number] trachea is midline. The cardiac silhouette is stable. Diffuse bilateral interstitial and alveolar infiltrates unchanged or minimally increased from prior study 04/21/2020. Left Port-A-Cath unchanged.. The bony thorax is unremarkable.IMPRESSIONDiffuse bilateral interstitial and alveolar infiltrates unchanged or minimally increased from previous 04/21/2020Electronically signed by: Ammon Ramirez (Apr 22, 2020 06:26:00)
[2020-04-22] MEDS: PLAQUENIL PO SCH (07:19)
[2020-04-22] MEDS ORDERED: REMDESIVIR (INVESTIGATIONAL DRUG GS-5734) IV ONE (09:00)
[2020-04-22] MEDS: DUONEB 0.5 MG/3 MG (3 mL) NEB SCH ×4 (09:25→20:55)
[2020-04-22] MEDS: PULMICORT NEB TX 0.5 MG NEB SCH ×2 (09:25→20:55)
[2020-04-22] MEDS: REMDESIVIR (INVESTIGATIONAL DRUG GS-5734) 100 MG in NS 250 ML IV 250 ML IV SCH (09:43)
[2020-04-22] MEDS: ZINC SULFATE PO SCH ×2 (09:43→18:34)
[2020-04-22] MEDS ORDERED: NS 500 ML IV 500 ML IV ONE (09:49)
[2020-04-22] MEDS: LOVENOX INJ 30 MG SYR SC SCH (11:10)
[2020-04-22] MEDS: MORPHINE SULFATE INJ 2 MG INJ IVP PRN (21:30)
[2020-04-22] MEDS: SNACK - Diabetic Appropriate PO SCH (22:38)
[2020-04-22] MEDS: ROCEPHIN VIAL 1 GRAM 1 G in NS 100 ML IV + SPIKE MINIBAG* 100 ML IV SCH (22:39)
[2020-04-23] MEDS: NS 1000 ML 1,000 ML with SODIUM BICARBONATE 8.4% INJ ADULT 50 ML IV SCH ×4 (04:28→18:54)
[2020-04-23] MEDS: SOLU-Medrol 40 MG VIAL IVP SCH ×3 (05:07→21:00)
[2020-04-23 05:09] LABS: BASOPHILS % (AUTO) 0.1 % (0.2-1.0); HEMATOCRIT 23.1 % (36.0-47.0); LYMPHOCYTES # (AUTO) 0.2 X10^3/uL (1.3-2.9); LYMPHOCYTES % (AUTO) 1.5 % (21.0-51.0); MEAN CORPUSCULAR HEMOGLOBIN 30.8 pg (27.0-34.0); MEAN CORPUSCULAR HGB CONC 33.1 g/dL (33.0-35.0); MEAN PLATELET VOLUME 7.4 fL (7.4-11.0); MONOCYTES # (AUTO) 0.5 x10^3/uL (0.3-0.8); MONOCYTES % (AUTO) 4.4 % (0.0-13.0); NEUTROPHILS # (AUTO) 10.1 x10^3/uL (2.2-4.8); PLATELET COUNT 408 X10^3/uL (150.0-450.0); RED BLOOD COUNT 2.49 X10^6/uL (3.5-5.4); RED CELL DISTRIBUTION WIDTH 17.3 % (11.6-16.5); WHITE BLOOD COUNT 10.7 X10^3/uL (3.6-10.0)
[2020-04-23 05:15] LABS: ALBUMIN 2.3 g/dL (3.4-5.0); CALCIUM 7.8 mg/dL (8.5-10.1); CARBON DIOXIDE 16.9 mmol/L (21-32); COR CA(FOR HYPOALB) 9.2 mg/dL (8.5-10.1); CREATININE 3.18 mg/dL (0.55-1.02); TOTAL PROTEIN 5.8 g/dL (6.4-8.2)
[2020-04-23] MEDS: MORPHINE SULFATE INJ 2 MG INJ IVP PRN ×3 (05:15→12:45)
[2020-04-23 06:04] LABS: BAND NEUTROPHILS % 7 % (0-10); PLATELET MORPHOLOGY COMMENT NORMAL (NORMAL)
[2020-04-23 06:05] LABS: ANISOCYTOSIS SLIGHT; HEMOGLOBIN 7.7 g/dL (12.0-16.0); HYPOCHROMASIA SLIGHT
--- NOTE | 2020-04-23 06:36 | RAD ---
HISTORYShortness of breathSTUDYChest AP [id number]/03/2020FINDINGSThere is a left-sided port in good position. The heart is enlarge d. No definite congestive heart failure is noted. Peripheral right upper and right lower lobe infiltr ates are unchanged. Left perihilar infiltrate is unchanged. Bony thorax is unremarkable.IMPRESSIONNo change cardiomegaly without congestive heart failureNo change peripheral right upper and right lower lobe infiltratesNo change left perihilar infiltrateElectronically signed by: USHA MANLEY (Apr 23 06:35:35)
[2020-04-23] MEDS: ZINC SULFATE PO SCH ×2 (08:56→09:01)
[2020-04-23] MEDS: LOVENOX INJ 30 MG SYR SC SCH (08:56)
[2020-04-23] MEDS: REMDESIVIR (INVESTIGATIONAL DRUG GS-5734) 100 MG in NS 250 ML IV 250 ML IV SCH (08:56)
[2020-04-23] MEDS ORDERED: REMDESIVIR (INVESTIGATIONAL DRUG GS-5734) IV ONE (09:00)
[2020-04-23] MEDS: HumuLIN R SUBCUT PRN ×4 (09:20→23:26)
[2020-04-23] MEDS: DUONEB 0.5 MG/3 MG (3 mL) NEB SCH ×4 (09:35→20:40)
[2020-04-23] MEDS: PULMICORT NEB TX 0.5 MG NEB SCH ×2 (09:35→20:40)
[2020-04-23 09:52] LABS: ABG BASE EXCESS -10.3 mmol/L (-2.0-2.0)
[2020-04-23 09:53] LABS: ABG HCO3 14.6 mmol/L (22-26)
[2020-04-23] MEDS ORDERED: MORPHINE SULFATE INJ 2 MG INJ IVP PRN (15:00)
[2020-04-23] MEDS ORDERED: NORCO 10/325 TAB PO PRN (15:01)
[2020-04-23] MEDS ORDERED: VOLTAREN 1 % GEL MULTI DOSE TUBE TOP PRN (15:02)
[2020-04-23] MEDS ORDERED: PROTONIX TAB 40 MG PO SCH (16:00)
[2020-04-23] MEDS ORDERED: DIFLUCAN PO SCH (16:00)
[2020-04-23] MEDS ORDERED: DIFLUCAN 100 MG IV (MIX by PHARMACY)* 100 MG/50 ML BAG IV SCH (17:00)
[2020-04-23] MEDS ORDERED: NEURONTIN CAP 100 MG ONE (20:31)
[2020-04-23] MEDS: SENOKOT PO SCH (20:51)
[2020-04-23] MEDS: MEGACE PO SCH (20:52)
[2020-04-23] MEDS: COREG TAB 3.125 MG PO SCH (20:59)
[2020-04-23] MEDS: VITAMIN C PO SCH (21:00)
[2020-04-23] MEDS ORDERED: ZOCOR TAB 40 MG PO SCH (21:00)
[2020-04-23] MEDS ORDERED: ELAVIL PO SCH (21:00)
[2020-04-23] MEDS ORDERED: COLACE CAP 100 MG PO SCH (21:00)
[2020-04-23] MEDS: SNACK - Diabetic Appropriate PO SCH ×2 (21:00→23:24)
[2020-04-23] MEDS ORDERED: NEURONTIN CAP 400 MG PO SCH (21:00)
[2020-04-23] MEDS ORDERED: ASCORBIC ACID COLLAGEN PO SCH (22:00)
[2020-04-23] MEDS: ROCEPHIN VIAL 1 GRAM 1 G in NS 100 ML IV + SPIKE MINIBAG* 100 ML IV SCH (22:00)
[2020-04-23] MEDS: NEURONTIN CAP 100 MG PO SCH (23:23)
[2020-04-24] MEDS: HumuLIN R SUBCUT PRN ×3 (01:15→11:28)
[2020-04-24 05:13] LABS: BASOPHILS % (AUTO) 0 % (0.2-1.0); HEMATOCRIT 22.3 % (36.0-47.0); HEMOGLOBIN 7.2 g/dL (12.0-16.0); LYMPHOCYTES # (AUTO) 0.2 X10^3/uL (1.3-2.9); LYMPHOCYTES % (AUTO) 2.4 % (21.0-51.0); MEAN CORPUSCULAR HEMOGLOBIN 30.2 pg (27.0-34.0); MEAN CORPUSCULAR HGB CONC 32.2 g/dL (33.0-35.0); MEAN CORPUSCULAR VOLUME 93.8 fL (80.0-100.0); MEAN PLATELET VOLUME 7.6 fL (7.4-11.0); MONOCYTES # (AUTO) 0.5 x10^3/uL (0.3-0.8); MONOCYTES % (AUTO) 5.7 % (0.0-13.0); NEUTROPHILS # (AUTO) 7.6 x10^3/uL (2.2-4.8); NEUTROPHILS % (AUTO) 91.9 % (42.0-75.0); PLATELET COUNT 336 X10^3/uL (150.0-450.0); RED BLOOD COUNT 2.38 X10^6/uL (3.5-5.4); RED CELL DISTRIBUTION WIDTH 17.6 % (11.6-16.5); WHITE BLOOD COUNT 8.3 X10^3/uL (3.6-10.0)
[2020-04-24 05:32] LABS: ALBUMIN 2.2 g/dL (3.4-5.0); CALCIUM 7.8 mg/dL (8.5-10.1); CARBON DIOXIDE 21.2 mmol/L (21-32); COR CA(FOR HYPOALB) 9.2 mg/dL (8.5-10.1); CREATININE 3.04 mg/dL (0.55-1.02); TOTAL PROTEIN 5.3 g/dL (6.4-8.2)
[2020-04-24] MEDS: NEURONTIN CAP 100 MG PO SCH (05:40)
[2020-04-24] MEDS: SOLU-Medrol 40 MG VIAL IVP SCH (05:41)
[2020-04-24 06:00] LABS: BAND NEUTROPHILS % 5 % (0-10); PLATELET MORPHOLOGY COMMENT NORMAL (NORMAL)
[2020-04-24 06:01] LABS: ANISOCYTOSIS SLIGHT; HYPOCHROMASIA 1+
--- NOTE | 2020-04-24 06:25 | RAD ---
HISTORYPneumoniaSTUDYCHEST, 1 VIEWCOMPARISON[One day prior]TECHNIQUE[AP view of the chest.]FINDINGS[Left chest wall port with tip in good position. The cardiac and mediastinal contours are stable. Stable multifocal bilateral airspace disease. Blunted costophrenic sulci suspicious for small pleural effusions.No definite pneumothorax.]IMPRESSION[No significant change]Electronically signed by: Chester Smith (Apr 24, 2020 06:24:13)
[2020-04-24] MEDS: DUONEB 0.5 MG/3 MG (3 mL) NEB SCH ×2 (08:55→12:05)
[2020-04-24] MEDS: PULMICORT NEB TX 0.5 MG NEB SCH (08:55)
[2020-04-24] MEDS ORDERED: BIOTIN 1000 MCG PO SCH (09:00)
[2020-04-24] MEDS ORDERED: PLAVIX PO SCH (09:00)
[2020-04-24] MEDS ORDERED: CYMBALTA PO SCH (09:00)
[2020-04-24] MEDS ORDERED: VITAMIN D3 125 mcg (5,000 UNITS) PO SCH (09:00)
[2020-04-24] MEDS ORDERED: FERROUS GLUCONATE PO SCH (09:00)
[2020-04-24] MEDS ORDERED: REMDESIVIR (INVESTIGATIONAL DRUG GS-5734) 100 MG in NS 250 ML IV 250 ML IV SCH (09:00)
[2020-04-24] MEDS: LOVENOX INJ 30 MG SYR SC SCH (10:00)
--- NOTE | 2020-04-24 10:17 | PCM.PROG ---
Progress Note - Progress Note for Day of Date of Exam: 04/22/20 - Subjective Subjective: IS BEING TREATED FOR PNEUMONIA DUE TO COVID-19, UROSEPSIS, RENAL INSUFFICIENCY, AND ANEMIA. TODAY, SHE IS LYING IN BED WITH EYES CLOSED ON MORNING ROUNDS. SHE HAS BEEN REFUSING TO EAT OR DRINK MUCH. SHE CONTINUES WITH WEAKNESS AND SHORTNESS OF BREATH TODAY. SHE REPORTS THAT SHORTNESS OF BREATH HAS SLIGHTLY IMROVED TODAY. SHE WAS PLACED ON BIPAP THROUGHOUT THE NIGHT DUE TO INCREASED SOB AT THAT TIME. ON EXAMINATION, HEART IS REGULAR IN RATE AND RHYTHM. BILATERAL LUNGS ARE NOTED WITH SCATTERED WHEEZING AND RHONCHI THROUGHOUT. ABDOMEN IS ROUND, SOFT, AND NON-TENDER WITH NORMAL BOWEL SOUNDS NOTED IN ALL QUADRANTS. HER VITALS THIS MORNING ARE: 97.6-545-73-100%-131/60. LABS WERE O BTAINED. ABNORMAL LAB VALUES INCLUDE THE FOLLOWING: WBC 10.3, RBC 2.54, HGB 7.8, HCT 23.7, CHLORIDE 110, CARBON DIOXIDE 17.9, BUN 75, CREATININE 3.52, GLUCOSE 292, CALCIUM 7.7, FERRITIN 1649, CRP 38.0, TOTAL PROTEIN 5.8, ALBUMIN 2.2. BLOOD CULTURES ARE PENDING. A CHEST XRAY WAS OBTAINED AND REVEALED: Diffuse bilateral interstitial and alveolar infiltrates unchanged or minimally increased from pre vious 04/21/2020. SHE IS CURRENTLY RECEIVING NORMAL SALINE WITH 1 AMP BICARB AT 75ML/HR, REMDESIVIR 100MG IV DAILY, SOLU-MEDROL 80MG IV Q8H, DUONEBS QID, PULMICORT NEBS BID, PLAQUENIL 200MG PO BID, ZINC 220MG PO DAILY, ROCEPHIN 1G IV DAILY. HER HOME MEDICATIONS WERE RESUMED. WE WILL GIVE HER A 500ML BOLUS OF NORMAL SALINE TODAY DUE TO INCREASED CREATININE. OTHERWISE, WE WILL FOLLOW UP WITH AM LABS AND CONTINUE TO MONITOR. - Past Medical Family Social History Past Med/Fam/Surg Hx: No changes since H&P Allergies: Allergies ezetimibe [From Zetia] Allergy (Verified 04/18/20 16:45) Influenza Virus Vaccines Allergy (Verified 04/18/20 16:45) Penicillins Allergy (Verified 04/18/20 16:45) pneumococcal vaccine Allergy (Verified 04/18/20 16:45) ropinirole [From Requip] Allergy (Verified 04/18/20 16:45) - Review of Systems ROS: No change since H&P - Vital Signs and I&O's Vital Signs: Temperature 97.4 F Pulse Rate 90 Respiratory Rate 12 Blood Pressure [Left Arm] 168/65 Blood Pressure [Right Arm] 159/64 Blood Pressure 133/60 O2 Sat by Pulse Oximetry 97 Intake and Output: Intake & Output 04/21/20 04/22/20 04/23/20 04/24/20 11:59 11:59 11:59 11:59 Intake Total 1512 / 1512 1800 / 1800 2342 / 2342 1682 / 1682 Output Total 600 / 600 550 / 550 950 / 950 950 / 950 Balance 912 / 912 1250 / 1250 1392 / 1392 732 / 732 - Physical Exam Oriented: Person Eyes: Normal Ear: Normal Nose: Normal Throat: Normal Respiratory: Wheezes, Rhonchi Cardiovascular: Normal : Normal Auscultation: Bowel Sounds: Normal Palpation: Normal Tenderness: Normal Skin: Normal Musculoskeletal: Normal Psychiatric: Normal Mood Description: Flat Affect: Flat Speech Pattern: Unclear, Delayed - Laboratory and Diagnostics Result Diagrams: 04/24/20 04:13 04/24/20 04:13 Labs: 04/18/20 18:05 Blood Blood Culture - Final 04/18/20 17:10 Blood Blood Culture - Final 04/18/20 16:35 Urine,Catheterized Urine Culture - Final Laboratory WBC 8.3 X10^3/uL (3.6-10.0) 04/24/20 04:13 RBC 2.38 X10^6/uL (3.5-5.4) L 04/24/20 04:13 Hgb 7.2 g/dL (12.0-16.0) L 04/24/20 04:13 Hct 22.3 % (36.0-47.0) L 04/24/20 04:13 MCV 93.8 fL (80.0-100.0) 04/24/20 04:13 MCH 30.2 pg (27.0-34.0) 04/24/20 04:13 MCHC 32.2 g/dL (33.0-35.0) L 04/24/20 04:13 RDW 17.6 % (11.6-16.5) H 04/24/20 04:13 Plt Count 336 X10^3/uL (150.0-450.0) 04/24/20 04:13 Plt Count Comment Adequate (ADEQUATE) 04/24/20 04:13 MPV 7.6 fL (7.4-11.0) 04/24/20 04:13 Neut % (Auto) 91.9 % (42.0-75.0) H 04/24/20 04:13 Lymph % (Auto) 2.4 % (21.0-51.0) L 04/24/20 04:13 [place] % (Auto) 5.7 % (0.0-13.0) 04/24/20 04:13 Eos % (Auto) 0.0 % (0.9-2.9) L 04/24/20 04:13 Baso % (Auto) 0 % (0.2-1.0) L 04/24/20 04:13 Neut # (Auto) 7.6 x10^3/uL (2.2-4.8) H 04/24/20 04:13 Lymph # (Auto) 0.2 X10^3/uL (1.3-2.9) L 04/24/20 04:13 [place] # (Auto) 0.5 x10^3/uL (0.3-0.8) 04/24/20 04:13 Eos # (Auto) 0.0 x10^3/uL (0.0-0.2) 04/24/20 04:13 Baso # (Auto) 0.0 X10^3/uL (0.0-0.1) 04/24/20 04:13 Absolute Nucleated RBC 0.1 /100WBC 04/24/20 04:13 Total Counted 100 04/24/20 04:13 Neutrophils % (Manual) 84 % (39-76) H 04/24/20 04:13 Band Neutrophils % 5 % (0-10) 04/24/20 04:13 Lymphocytes % (Manual) 6 % (13-43) L 04/24/20 04:13 Monocytes % (Manual) 5 % (4-9) 04/24/20 04:13 Plt Morphology Comment Normal (NORMAL) 04/24/20 04:13 RBC Morphology Abnormal (NORMAL) A 04/24/20 04:13 Hypochromasia 1+ A 04/24/20 04:13 Anisocytosis Slight A 04/24/20 04:13 Ovalocytes Present 04/21/20 04:13 [place] Cells Present 04/20/20 04:06 PT 16.1 SECONDS (11.8-14.3) 04/19/20 02:10 INR Target Range - 04/19/20 02:10 INR 1.33 (0.8-1.3) H 04/19/20 02:10 APTT 53.3 SECONDS (22.9-36.5) H 04/19/20 02:10 PTT Comment - 04/19/20 02:10 Sample Site Right brachial 04/23/20 09:42 ABG pH 7.310 (7.35-7.45) L 04/23/20 09:42 ABG pCO2 29.0 mmHg (35.0-45.0) L 04/23/20 09:42 ABG pO2 72.0 mmHg (80.0-100.0) L 04/23/20 09:42 ABG HCO3 14.6 mmol/L (22-26) L* 04/23/20 09:42 ABG O2 Saturation 93.0 % (90-100) 04/23/20 09:42 ABG Base Excess -10.3 mmol/L (-2.0-2.0) L 04/23/20 09:42 Mart Test Na 04/23/20 09:42 A-a Gradient 106.0 mmHg 04/23/20 09:42 FiO2 30.0 04/23/20 09:42 Blood Gas Comments [place] well aw 04/23/20 09:42 Sodium 154 mmol/L (136-145) H* 04/24/20 04:13 Corrected Sodium 158 mmol/L (136-145) H 04/24/20 04:13 Potassium 3.5 mmol/L (3.5-5.1) 04/24/20 04:13 Chloride 121 mmol/L (98-107) H* 04/24/20 04:13 Carbon Dioxide 21.2 mmol/L (21-32) 04/24/20 04:13 BUN 87 mg/dL (7-18) H 04/24/20 04:13 Creatinine 3.04 mg/dL (0.55-1.02) H 04/24/20 04:13 Est GFR (MDRD) Af Amer 19 (>60) L 04/24/20 04:13 Est GFR (MDRD) Non-Af 16 (>60) L 04/24/20 04:13 Glucose 270 mg/dL (65-99) H 04/24/20 04:13 Lactic Acid 1.1 mmol/L (0.4-2.0) 04/18/20 18:05 Calcium 7.8 mg/dL (8.5-10.1) L 04/24/20 04:13 Corrected Calcium 9.2 mg/dL (8.5-10.1) 04/24/20 04:13 Magnesium 1.7 mg/dL (1.7-2.9) 04/22/20 03:57 Ferritin 1647 ng/mL (8-252) H 04/24/20 04:13 Total Bilirubin 0.30 mg/dL (0.2-1.0) 04/24/20 04:13 AST 21 Units/L (15-37) 04/24/20 04:13 ALT 21 Units/L (12-78) 04/24/20 04:13 Alkaline Phosphatase 75 Units/L (46-116) 04/24/20 04:13 Lactate Dehydrogenase 564 Units/L (81-234) H 04/18/20 18:05 Creatine Kinase 81 Units/L (26-192) 04/19/20 08:35 CK-MB (CK-2) 2.9 ng/mL (0-4.0) 04/19/20 08:35 CK/CKMB % Calc 3.6 % (<4) 04/19/20 08:35 Troponin I 0.04 ng/mL (0-1.5) 04/19/20 08:35 C-Reactive Protein 22.60 mg/L (0-3.0) H 04/24/20 04:13 B-Natriuretic Peptide 1920 pg/mL (0-79) H* 04/21/20 04:13 Total Protein 5.3 g/dL (6.4-8.2) L 04/24/20 04:13 Albumin 2.2 g/dL (3.4-5.0) L 04/24/20 04:13 Globulin 3.1 g/dL (2.5-4.5) 04/24/20 04:13 Albumin/Globulin Ratio 0.7 Ratio (1.1-2.1) L 04/24/20 04:13 Specimen Type Catherized urine 04/18/20 16:35 Urine Color Yellow (YELLOW) 04/18/20 16:35 Urine Appearance Cloudy (CLEAR) 04/18/20 16:35 Urine pH 6.0 (5.0 - 8.0) 04/18/20 16:35 Ur Specific [place] 1.020 (1.000-1.030) 04/18/20 16:35 Urine Protein 3+ (NEGATIVE) 04/18/20 16:35 Urine Glucose (UA) Negative (NEGATIVE) 04/18/20 16:35 Urine Ketones Negative (NEGATIVE) 04/18/20 16:35 Urine Occult Blood 4+ (NEGATIVE) 04/18/20 16:35 Urine Nitrite Negative (NEGATIVE) 04/18/20 16:35 Urine Bilirubin Negative (NEGATIVE) 04/18/20 16:35 Urine Urobilinogen Normal (NORMAL) 04/18/20 16:35 Ur Leukocyte Esterase 3+ (NEGATIVE) 04/18/20 16:35 Urine RBC 5-10 /HPF (0-3) A 04/18/20 16:35 Urine WBC Tntc /HPF (0-5) A 04/18/20 16:35 Ur Squamous Epith Cells Rare /HPF (NEGATIVE) 04/18/20 16:35 Urine Bacteria Trace /HPF (NEGATIVE) 04/18/20 16:35 Ur Culture Indicated? Yes/culture set up 04/18/20 16:35 - Plan (1) COVID-19 Status: Acute Plan: NORMAL SALINE WITH 1 AMP BICARB AT 75ML/HR, REMDESIVIR 100MG IV DAILY, SOLU-MEDROL 80MG IV Q8H, DUONEBS QID, PULMICORT NEBS BID, PLAQUENIL 200MG PO BID, ZINC 220MG PO DAILY, ROCEPHIN 1G IV DAILY. BIPAP (2) Sepsis Status: Acute Qualifiers: Sepsis type: sepsis due to unspecified organism Severe sepsis acute organ dysfunction type: acute renal failure Acute renal failure type: unspecified Severe sepsis shock status: unspecified (3) Hypothermia Status: Acute Qualifiers: Encounter type: initial encounter Qualified Code(s): T68.XXXA - Hypothermia, initial encounter (4) UTI (urinary tract infection) Status: Acute Qualifiers: Urinary tract infection type: acute cystitis Hematuria presence: with hematuria Qualified Code(s): N30.01 - Acute cystitis with hematuria (5) Renal insufficiency Status: Chronic (6) Anemia Status: Chronic Qualifiers: Anemia type: iron deficiency Iron deficiency anemia type: chronic blood 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
--- NOTE | 2020-04-24 10:27 | PCM.PROG ---
Progress Note - Progress Note for Day of Date of Exam: 04/23/20 - Subjective Subjective: IS BEING TREATED FOR PNEUMONIA DUE TO COVID-19, UROSEPSIS, RENAL INSUFFICIENCY, AND ANEMIA. TODAY, SHE IS LYING IN BED WITH EYES CLOSED ON MORNING ROUNDS. SHE DOES NOT RESPOND VERBALLY, BUT SHE IS MOANING OUT. STAFF IS UNABLE TO GET HER TO TAKE HER ORAL MEDICATIONS THIS MORNING. SHE CONTINUES WITH WEAKNESS AND SHORTNESS OF BREATH TODAY. SHE REMAINS ON THE BIPAP. ON EXAMINATION, HEART IS REGULAR IN RATE AND RHYTHM. BILATERAL LUNGS ARE NOTED WITH SCATTERED WHEEZING AND RHONCHI THROUGHOUT. ABDOMEN IS ROUND, SOFT, AND NON- TENDER WITH NORMAL BOWEL SOUNDS NOTED IN ALL QUADRANTS. HER VITALS THIS MORNING ARE: 97.1-106-16-98%BIPAP-152/70. LABS WERE OBTAINED. ABNORMAL LAB VALUES INCL UDE THE FOLLOWING: WBC 10.7, RBC 2.49, HGB 7.7, HCT 23.1, SODIUM 148, CHLORIDE 114, CARBON DIOXIDE 16.9, BUN 79, CREATININE 3.18, GLUCOSE 285, CALCIUM 7.8, FERRITIN 1640, CRP 26.90, TOTAL PROTEIN 5.8, ALBUMIN 2.3. AN ABG WAS REPEATED AND REVEALED: PH 7.310, PC02 29.0, P02 72.0, HC03 14.6, 02 SATURATION 93.0, BASE EXCESS -10.3, FI02 30.0. A CHEST XRAY WAS OBTAINED AND REVEALED: No change cardiomegaly without congestive heart failure. No change peripheral right upper and right lower lobe infiltrates. No change left perihilar infiltrate. SHE IS CURRENTLY RECEIVING NORMAL SALINE WITH 1 AMP BICARB AT 75ML/HR, REMDESIVIR 100MG IV DAILY, SOLU-MEDROL 80MG IV Q8H, DUONEBS QID, PULMICORT NEBS BID, PLAQUENIL 200MG PO BID, ZINC 220MG PO DAILY, ROCEPHIN 1G IV DAILY. HER HOME MEDICATIONS WERE RESUMED. WE WILL CONTINUE WITH CURRENT PLAN OF CARE TODAY. OTHERWISE, WE WILL FOLLOW UP WITH AM LABS AND CONTINUE TO MONITOR. - Past Medical Family Social History Past Med/Fam/Surg Hx: No changes since H&P Allergies: Allergies ezetimibe [From Zetia] Allergy (Verified 04/18/20 16:45) Influenza Virus Vaccines Allergy (Verified 04/18/20 16:45) Penicillins Allergy (Verified 04/18/20 16:45) pneumococcal vaccine Allergy (Verified 04/18/20 16:45) ropinirole [From Requip] Allergy (Verified 04/18/20 16:45) - Review of Systems ROS: No change since H&P - Vital Signs and I&O's Vital Signs: Temperature 97.4 F Pulse Rate 81 Respiratory Rate 12 Blood Pressure [Left Arm] 168/65 Blood Pressure [Right Arm] 159/64 Blood Pressure 133/60 O2 Sat by Pulse Oximetry 98 Intake and Output: Intake & Output 04/21/20 04/22/20 04/23/20 04/24/20 11:59 11:59 11:59 11:59 Intake Total 1512 / 1512 1800 / 1800 2342 / 2342 1682 / 1682 Output Total 600 / 600 550 / 550 950 / 950 950 / 950 Balance 912 / 912 1250 / 1250 1392 / 1392 732 / 732 - Physical Exam Oriented: Person Eyes: Normal Ear: Normal Nose: Normal Throat: Normal Respiratory: Wheezes, Rhonchi Cardiovascular: Normal : Normal Auscultation: Bowel Sounds: Normal Tenderness: Normal Skin: Normal Musculoskeletal: Normal Psychiatric: Normal Mood Description: Flat Affect: Flat Speech Pattern: Unclear, Delayed - Laboratory and Diagnostics Result Diagrams: 04/24/20 04:13 04/24/20 04:13 Labs: 04/18/20 18:05 Blood Blood Culture - Final 04/18/20 17:10 Blood Blood Culture - Final 04/18/20 16:35 Urine,Catheterized Urine Culture - Final Laboratory WBC 8.3 X10^3/uL (3.6-10.0) 04/24/20 04:13 RBC 2.38 X10^6/uL (3.5-5.4) L 04/24/20 04:13 Hgb 7.2 g/dL (12.0-16.0) L 04/24/20 04:13 Hct 22.3 % (36.0-47.0) L 04/24/20 04:13 MCV 93.8 fL (80.0-100.0) 04/24/20 04:13 MCH 30.2 pg (27.0-34.0) 04/24/20 04:13 MCHC 32.2 g/dL (33.0-35.0) L 04/24/20 04:13 RDW 17.6 % (11.6-16.5) H 04/24/20 04:13 Plt Count 336 X10^3/uL (150.0-450.0) 04/24/20 04:13 Plt Count Comment Adequate (ADEQUATE) 04/24/20 04:13 MPV 7.6 fL (7.4-11.0) 04/24/20 04:13 Neut % (Auto) 91.9 % (42.0-75.0) H 04/24/20 04:13 Lymph % (Auto) 2.4 % (21.0-51.0) L 04/24/20 04:13 Loving % (Auto) 5.7 % (0.0-13.0) 04/24/20 04:13 Eos % (Auto) 0.0 % (0.9-2.9) L 04/24/20 04:13 Baso % (Auto) 0 % (0.2-1.0) L 04/24/20 04:13 Neut # (Auto) 7.6 x10^3/uL (2.2-4.8) H 04/24/20 04:13 Lymph # (Auto) 0.2 X10^3/uL (1.3-2.9) L 04/24/20 04:13 Loving # (Auto) 0.5 x10^3/uL (0.3-0.8) 04/24/20 04:13 Eos # (Auto) 0.0 x10^3/uL (0.0-0.2) 04/24/20 04:13 Baso # (Auto) 0.0 X10^3/uL (0.0-0.1) 04/24/20 04:13 Absolute Nucleated RBC 0.1 /100WBC 04/24/20 04:13 Total Counted 100 04/24/20 04:13 Neutrophils % (Manual) 84 % (39-76) H 04/24/20 04:13 Band Neutrophils % 5 % (0-10) 04/24/20 04:13 Lymphocytes % (Manual) 6 % (13-43) L 04/24/20 04:13 Monocytes % (Manual) 5 % (4-9) 04/24/20 04:13 Plt Morphology Comment Normal (NORMAL) 04/24/20 04:13 RBC Morphology Abnormal (NORMAL) A 04/24/20 04:13 Hypochromasia 1+ A 04/24/20 04:13 Anisocytosis Slight A 04/24/20 04:13 Ovalocytes Present 04/21/20 04:13 Hallett Cells Present 04/20/20 04:06 PT 16.1 SECONDS (11.8-14.3) 04/19/20 02:10 INR Target Range - 04/19/20 02:10 INR 1.33 (0.8-1.3) H 04/19/20 02:10 APTT 53.3 SECONDS (22.9-36.5) H 04/19/20 02:10 PTT Comment - 04/19/20 02:10 Sample Site Right brachial 04/23/20 09:42 ABG pH 7.310 (7.35-7.45) L 04/23/20 09:42 ABG pCO2 29.0 mmHg (35.0-45.0) L 04/23/20 09:42 ABG pO2 72.0 mmHg (80.0-100.0) L 04/23/20 09:42 ABG HCO3 14.6 mmol/L (22-26) L* 04/23/20 09:42 ABG O2 Saturation 93.0 % (90-100) 04/23/20 09:42 ABG Base Excess -10.3 mmol/L (-2.0-2.0) L 04/23/20 09:42 Mart Test Na 04/23/20 09:42 A-a Gradient 106.0 mmHg 04/23/20 09:42 FiO2 30.0 04/23/20 09:42 Blood Gas Comments Germaine well aw 04/23/20 09:42 Sodium 154 mmol/L (136-145) H* 04/24/20 04:13 Corrected Sodium 158 mmol/L (136-145) H 04/24/20 04:13 Potassium 3.5 mmol/L (3.5-5.1) 04/24/20 04:13 Chloride 121 mmol/L (98-107) H* 04/24/20 04:13 Carbon Dioxide 21.2 mmol/L (21-32) 04/24/20 04:13 BUN 87 mg/dL (7-18) H 04/24/20 04:13 Creatinine 3.04 mg/dL (0.55-1.02) H 04/24/20 04:13 Est GFR (MDRD) Af Amer 19 (>60) L 04/24/20 04:13 Est GFR (MDRD) Non-Af 16 (>60) L 04/24/20 04:13 Glucose 270 mg/dL (65-99) H 04/24/20 04:13 Lactic Acid 1.1 mmol/L (0.4-2.0) 04/18/20 18:05 Calcium 7.8 mg/dL (8.5-10.1) L 04/24/20 04:13 Corrected Calcium 9.2 mg/dL (8.5-10.1) 04/24/20 04:13 Magnesium 1.7 mg/dL (1.7-2.9) 04/22/20 03:57 Ferritin 1647 ng/mL (8-252) H 04/24/20 04:13 Total Bilirubin 0.30 mg/dL (0.2-1.0) 04/24/20 04:13 AST 21 Units/L (15-37) 04/24/20 04:13 ALT 21 Units/L (12-78) 04/24/20 04:13 Alkaline Phosphatase 75 Units/L (46-116) 04/24/20 04:13 Lactate Dehydrogenase 564 Units/L (81-234) H 04/18/20 18:05 Creatine Kinase 81 Units/L (26-192) 04/19/20 08:35 CK-MB (CK-2) 2.9 ng/mL (0-4.0) 04/19/20 08:35 CK/CKMB % Calc 3.6 % (<4) 04/19/20 08:35 Troponin I 0.04 ng/mL (0-1.5) 04/19/20 08:35 C-Reactive Protein 22.60 mg/L (0-3.0) H 04/24/20 04:13 B-Natriuretic Peptide 1920 pg/mL (0-79) H* 04/21/20 04:13 Total Protein 5.3 g/dL (6.4-8.2) L 04/24/20 04:13 Albumin 2.2 g/dL (3.4-5.0) L 04/24/20 04:13 Globulin 3.1 g/dL (2.5-4.5) 04/24/20 04:13 Albumin/Globulin Ratio 0.7 Ratio (1.1-2.1) L 04/24/20 04:13 Specimen Type Catherized urine 04/18/20 16:35 Urine Color Yellow (YELLOW) 04/18/20 16:35 Urine Appearance Cloudy (CLEAR) 04/18/20 16:35 Urine pH 6.0 (5.0 - 8.0) 04/18/20 16:35 Ur Specific Beeler 1.020 (1.000-1.030) 04/18/20 16:35 Urine Protein 3+ (NEGATIVE) 04/18/20 16:35 Urine Glucose (UA) Negative (NEGATIVE) 04/18/20 16:35 Urine Ketones Negative (NEGATIVE) 04/18/20 16:35 Urine Occult Blood 4+ (NEGATIVE) 04/18/20 16:35 Urine Nitrite Negative (NEGATIVE) 04/18/20 16:35 Urine Bilirubin Negative (NEGATIVE) 04/18/20 16:35 Urine Urobilinogen Normal (NORMAL) 04/18/20 16:35 Ur Leukocyte Esterase 3+ (NEGATIVE) 04/18/20 16:35 Urine RBC 5-10 /HPF (0-3) A 04/18/20 16:35 Urine WBC Tntc /HPF (0-5) A 04/18/20 16:35 Ur Squamous Epith Cells Rare /HPF (NEGATIVE) 04/18/20 16:35 Urine Bacteria Trace /HPF (NEGATIVE) 04/18/20 16:35 Ur Culture Indicated? Yes/culture set up 04/18/20 16:35 - Plan (1) COVID-19 Status: Acute Plan: NORMAL SALINE WITH 1 AMP BICARB AT 75ML/HR, REMDESIVIR 100MG IV DAILY, SOLU-MEDROL 80MG IV Q8H, DUONEBS QID, PULMICORT NEBS BID, PLAQUENIL 200MG PO BID, ZINC 220MG PO DAILY, ROCEPHIN 1G IV DAILY. BIPAP (2) Sepsis Status: Acute Qualifiers: Sepsis type: sepsis due to unspecified organism Severe sepsis acute organ dysfunction type: acute renal failure Acute renal failure type: unspecified Severe sepsis shock status: unspecified (3) Hypothermia Status: Acute Qualifiers: Encounter type: initial encounter Qualified Code(s): T68.XXXA - Hypothermia, initial encounter (4) UTI (urinary tract infection) Status: Acute Qualifiers: Urinary tract infection type: acute cystitis Hematuria presence: with hematuria Qualified Code(s): N30.01 - Acute cystitis with hematuria (5) Renal insufficiency Status: Chronic (6) Anemia Status: Chronic Qualifiers: Anemia type: iron deficiency Iron deficiency anemia type: chronic blood 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
[2020-04-24] MEDS: ZINC SULFATE PO SCH (11:00)
[2020-04-24] MEDS: COREG TAB 3.125 MG PO SCH (11:29)
[2020-04-24] MEDS: MEGACE PO SCH (11:31)
[2020-04-24] MEDS: SENOKOT PO SCH (11:32)
[2020-04-24] MEDS: VITAMIN C PO SCH (11:33)
[2020-04-24] MEDS ORDERED: VERSED 100 MG in NS 100 ML IV 80 ML IV PRN (11:35)
[2020-04-24] MEDS: MORPHINE SULFATE PCA 30 MG IVP PRN ×2 (13:39→20:00)
[2020-04-24 23:17] VITALS: BP 97/48
== END 2020-04-24 21:20 | disposition expired | DRG 177 ==
LOC: ER 16:01 → ICU 20:01
PROVIDERS: ADMIT Internal Medicine; ATTEND Internal Medicine
DX: R26.81 Unsteadiness on feet; M19.90 Unspecified osteoarthritis, unspecified site; D50.0 Iron deficiency anemia secondary to blood loss (chronic); N39.0 Urinary tract infection, site not specified; E11.22 Type 2 diabetes mellitus with diabetic chronic kidney disease; U07.1 COVID-19; N18.9 Chronic kidney disease, unspecified; D68.9 Coagulation defect, unspecified; J12.89 Other viral pneumonia; I12.9 Hypertensive chronic kidney disease with stage 1 through stage 4 chronic kidney disease, or unspecified chronic kidney disease; N17.9 Acute kidney failure, unspecified; E78.5 Hyperlipidemia, unspecified; R41.82 Altered mental status, unspecified; T68.XXXA Hypothermia, initial encounter; Z95.1 Presence of aortocoronary bypass graft
CPT/HCPCS: 36415; 36600; 51702; 71010; 71045; 80053; 81001; 82550; 82553; 82728; 82803; 83605; 83615; 83735; 83880; 84484; 85025; 85610; 85730; 86140; 86850; 86900; 86901; 87040; 87086; 93005; 94640; 94660; 96365; 96367; 97110; 97163; 99284; A4222; A4618; A7030; J0696; J1450; J1650; J1815; J1940; J2250; J2270; J2271; J2920; J3480; J3490; J7030; J7040; J7050; J7620; J7626; S0179